=== PATIENT | male | born 1985 | race Caucasian/White ===

== ENCOUNTER 2020-04-24 03:54 | Emergency (ER) | payer MEDICARE, MEDICAID, SELFPAY ==
[2020-04-24 03:54] VITALS: BP 129/82; PULSE 72; RESP 16; TEMP 36.5; O2SAT 97; BMI 30.8
--- NOTE | 2020-04-24 04:03 | CT_ITS ---
STUDY: CT ABDOMEN AND PELVIS WITHOUT CONTRAST REASON FOR EXAM: Male, 35 years old. LT ABDOMEN PAIN SINCE 3AM RADIATION DOSAGE (If Supplied By Facility): CTDIvol = ( 14.37 ) mGy, DLP = ( 800.85 ) mGycm TECHNIQUE: Transaxial images were obtained from the dome of the diaphragm to the symphysis pubis without oral contrast, and without intravenous contrast. Sagittal and coronal images were reconstructed. Individualized dose optimization techniques were used for this CT. COMPARISON: None. FINDINGS: The visualized lung bases are unremarkable. The visualized portions of the heart are within normal limits. Normal liver. Normal gallbladder and extrahepatic biliary system. There is borderline splenomegaly. There is a small 12 mm splenule in the left splenic hilum. Normal pancreas. Normal bilateral adrenal glands. Normal right kidney. Normal left kidney. There is a small hiatal hernia. There mildly distended loops of small bowel. There is moderate stool in the colon. The appendix is visualized and appears normal. Normal abdominal aorta. Normal inferior vena cava. Normal retroperitoneum. Normal urinary bladder. Normal visualized prostate gland. There is a small umbilical hernia containing fat. There is a broad disc bulge L4-L5. There is mild disc space narrowing L5-S1 without significant neural foraminal narrowing or central stenosis. CT/Abdomen/Pelvis without Cont IMPRESSION: There are mildly distended loops of left upper quadrant small bowel. There is abundant stool in the colon from the cecum to the rectum. Could consider mild focal ileus, this is in a setting of constipation. No visualized appendicitis. No visualized renal ureteral bladder calculi. Borderline splenomegaly. Electronically Signed: Radha Torres MD at 4:37 EST Tel , Service support ,
--- NOTE | 2020-04-24 04:05 | ED.VIS.GEN ---
History of Present Illness Chief Complaint: Abd Pain Informant: Patient Onset: Today Current Severity: Mild Maximum Severity: Moderate Narrative: Patient presents with left-sided abdominal pain. He states he woke from sleep within the past hour with left-sided abdominal pain. He states initially he does not want to lay in a position to help ease the pain. He tried to go to the bathroom had a bowel movement that did not change his pain. He felt well when he went to sleep last night. He denies nausea or vomiting. He has not felt feverish. - Past Medical History (1) GERD (gastroesophageal reflux disease) Status: Chronic (2) Bipolar disorder Status: Chronic Past Medical History - Allergies and Home Meds Allergies/Adverse Reactions: Allergies No Known Allergies Allergy (Verified 04/24/20 03:56) Primary Care Physician: William Castillo MD [Primary Care Provider] - Prior records reviewed: Yes Surgical History: noncontributory Lives: Spouse/ Significant Other Smoking Status: Current every day smoker Review of Systems General: Denies: Chills, Fever Eyes: Denies: Visual changes - bilaterally ENT: Denies: Bilateral ear pain Cardiovascular: Denies: Chest pain Respiratory: Denies: Dyspnea, Cough Gastrointestinal: Reports: Abdominal pain. Denies: Vomiting, Diarrhea Genitourinary: Denies: Dysuria Musculoskeletal: Denies: Swelling, Extremity Pain Skin: Denies: Rash Neurological: Denies: Headache Hematologic: Denies: Easy bruising, Easy bleeding Allergy: Denies: Uticaria Physical Exam Vital Signs/Narrative: Vital Signs Temp Pulse Resp BP Pulse Ox 04/24/20 03:54 97.7 F L 72 16 129/82 H 97 Inital Vital Signs reviewed: Yes General: Well nourished, Well developed Head: Normocephalic ENT: Moist mucous membranes Neck: Supple Cardiovascular: Regular rate, Regular rhythm Respiratory: No distress, CTA bilaterally Abdomen: Soft, Nontender, Hypoactive bowel sounds Extremities: Nontender Skin: Normal color Neurological: Alert, Oriented x3 Psychological: Normal affect Diagnostic/Tx/Re-eval Impressions Abdomen/Pelvis CT 04/24/20 04:03 IMPRESSION: There are mildly distended loops of left upper quadrant small bowel. There is abundant stool in the colon from the cecum to the rectum. Could consider mild focal ileus, this is in a setting of constipation. No visualized appendicitis. No visualized renal ureteral bladder calculi. Borderline splenomegaly. Electronically Signed: Radha Torres MD at 4:37 EST Tel , Service support , 04/24/20 04:03 Abdomen/Pelvis without Cont [CT] Stat Laboratory Results 04/24/20 04/24/20 03:55 03:55 WBC 6.0 RBC 4.94 Hgb 15.0 Hct 42.4 MCV 85.8 MCH 30.4 MCHC 35.4 RDW Std Deviation 42.5 RDW Coeff of Gabriel 13.6 Plt Count 194 MPV 8.4 Immature Gran % (Auto) 0.300 Neut % (Auto) 43.0 L Lymph % (Auto) 44.9 H [place] % (Auto) 8.3 Eos % (Auto) 3.2 Baso % (Auto) 0.3 Absolute Neuts (auto) 2.6 Absolute Lymphs (auto) 2.70 Nucleated RBC % 0 Sodium 140 Potassium 3.3 L Chloride 107 Carbon Dioxide 27.0 Anion Gap 6 BUN 14 Creatinine 1.34 H Estim Creat Clear Calc 84.45 Est GFR (MDRD) Af Amer 78 Est GFR (MDRD) Non-Af 64 BUN/Creatinine Ratio 10.4 Glucose 104 Calcium 8.6 Total Bilirubin 0.60 Direct Bilirubin 0.11 AST 16 ALT 18 Alkaline Phosphatase 54 Total Protein 7.0 Albumin 3.9 Globulin 3.1 Lipase 105 - Medical Decision Making Patient was given Toradol and Zofran here. On repeat evaluation he is resting comfortably. Test results are discussed with him. It does appear that he has some distended loops of small bowel as well as constipation with stool throughout the colon. I did offer to write a prescription for MiraLAX but patient states he will does pick it up [id number]. He is reassured with these findings and was given return instructions. ED Disposition - Plan for ED Patient: Disposition: Home or Assisted Living Diagnosis: Abdominal pain, Constipation Instructions: ED Constipation (Adult) Referrals: William Castillo MD [Primary Care Provider] - As Needed Additional Instructions: As discussed, I recommend starting MiraLax to help treat your constipation. This can be picked up over the counter at local stores and pharmacies.
[2020-04-24 04:09] LABS: Absolute Neutrophil Count 2.6 X10^3/uL (2.0-7.7); Basophil# 0.02 X10^3/uL; Basophil% 0.3 % (0-1); Eosinophil# 0.19 X10^3/uL; Eosinophils% 3.2 % (0-5); Hematocrit 42.4 % (40-54); Lymphocyte % 44.9 % (19-41); Mean Corp Hgb Conc 35.4 g/dL (32-36); Mean Corpuscular Hgb 30.4 pg (27.0-32.0); Mean Corpuscular Volume 85.8 fL (80-94); Mean Platelet Vol. 8.4 fl (6.2-12.0); Monocyte% 8.3 % (0-10); NRBC Flagged by Analyzer 0 % (0-5); Neutrophil # 2.58 X10^3/uL (2.7-7.7); Platelet Count 194 K/mm3 (150-450); RBC Distribution Width CV 13.6 % (11.6-14.6); RBC Distribution Width SD 42.5 fl (35.1-43.9); Red Blood Count 4.94 M/mm3 (4.6-6.2)
[2020-04-24] MEDS: Ketorolac 30 MG/ML Syringe IV (04:09)
[2020-04-24] MEDS: Ondansetron 4 MG/2 ML Vial IV (04:09)
[2020-04-24 04:23] LABS: AST(SGOT) 16 U/L (15-37); Alanine Aminotransfer ALT/SGPT 18 U/L (16-61); Albumin, Serum 3.9 g/dL (3.2-5.0); Alkaline Phosphatase 54 U/L (45-117); Anion Gap 6 (5-15); BUN 14 mg/dL (7-18); BUN/Creat Ratio 10.4 RATIO (10-20); Bilirubin, Direct 0.11 mg/dL (0.00-0.30); Calcium,Total 8.6 mg/dL (8.5-10.1); Chloride 107 mmol/L (98-107); Creatinine, Serum 1.34 mg/dL (0.70-1.30); EST Glomerular Filtration Rate 64 mL/min (>60); Est Glom Filt Rate - Afr Amer 78 mL/min (>60); Estimated Creatinine Clearance 84.45 ml/min; Globulin 3.1 g/dL (2.2-4.2); Glucose 104 mg/dL (74-106); Lipase 105 U/L (73-393); Potassium 3.3 mmol/L (3.5-5.1); Sodium Level 140 mmol/L (136-145)
[2020-04-24 04:46] VITALS: RESP 15
== END 2020-04-24 04:46 | disposition home or self-care (01) ==
PROVIDERS: Emergency Provider Emergency Medicine; PCP Family Medicine
DX: K59.00 Constipation, unspecified (principal); K21.9 Gastro-esophageal reflux disease without esophagitis; F31.9 Bipolar disorder, unspecified; Z79.899 Other long term (current) drug therapy; F17.200 Nicotine dependence, unspecified, uncomplicated
CPT/HCPCS: 74176; 80048; 80076; 83690; 85025; 96374; 96375; 99283; A4216; J2405

== ENCOUNTER 2020-10-08 05:39 | Emergency (ER) | payer MEDICARE, MEDICAID, SELFPAY ==
[2020-10-08 05:39] VITALS: BP 126/68; PULSE 70; RESP 16; TEMP 35.9; O2SAT 95; BMI 29.2
--- NOTE | 2020-10-08 05:54 | ED.VIS.GI ---
HPI HPI - GI History of Present Illness Chief Complaint: Constipation Narrative Narrative: Patient presenting for evaluation secondary to constipation abdominal pain. Patient states that he has had a history of this in the past. Patient states over the course the last 2 days he has been having difficulty with passing stool. He states that he has been passing very small amounts of hard stool and has been having intermittent lower abdominal pain that is bilateral. He denies any nausea or vomiting. Denies any decreased flatus. Denies any fevers. He is never had any prior abdominal surgeries in the past. He states that he has had a history with constipation in the past, he required a enema, and is stating that he is presenting now hoping to prevent that. Review of systems otherwise negative. [facility] Medical History Anxiety Depression Home Medications prazosin [Minipress] 2 mg PO DAILY 07/23/15 [History Last Taken 03/06/16 20:00] lurasidone [Latuda] 80 mg PO DAILY 03/07/16 [History Last Taken 03/06/16 08:00] benztropine 2 mg PO BID 03/23/17 [History Last Taken Unknown] buspirone 30 mg PO BID 03/23/17 [History Last Taken Unknown] escitalopram oxalate 10 mg PO DAILY 03/23/17 [History Last Taken Unknown] lamotrigine 200 mg PO BID 04/24/20 [History Last Taken Unknown] omeprazole 20 mg PO DAILY 04/24/20 [History Last Taken Unknown] polyethylene glycol 3350 [Miralax] 17 g PO DAILY #119 g 10/08/20 [Rx Last Taken Unknown] Allergy/AdvReac Type Severity Reaction Status Date / Time No Known Allergies Allergy Verified 04/24/20 03:56 Social History Smoking Status: Current every day smoker tobacco type: cigarettes ROS ROS ED Constitutional Constitutional ED: Denies chills or fever(s) ENT ENT ED: Denies sore throat Cardiovascular Cardiovascular: Denies chest pain Respiratory/Chest Respiratory/Chest: Denies cough or dyspnea Gastrointestinal Gastrointestinal: Reports abdominal pain and constipation; Denies diarrhea or nausea Genitourinary Genitourinary ED: Denies dysuria, hematuria or urinary frequency Musculoskeletal Musculoskeletal: Denies myalgias Integumentary Denies rash Neurologic Neurologic: Denies paresthesias or weakness Psychiatric Psychiatric: Denies depression Endocrine Endocrinology: Denies polyuria Hematologic/Lymphatic Hematologic/Lymphatic: Denies easy bleeding or easy bruising Allergic/Immunologic Allergic/Immunologic ED: Denies urticaria EXAM Physical Exam Const Vital Signs: 10/08/20 05:39 Temperature 96.7 F L Temperature Source Temporal Pulse Rate 70 Respiratory Rate 16 Blood Pressure 126/68 H Blood Pressure Mean 87 Pulse Ox 95 Oxygen Delivery Method Room Air Positive well nourished and well developed General Appearance ED: well developed and NAD HEENT HEENT Narrative: No signs of dehydration normocephalic and atraumatic Eyes EOMs intact bilaterally General Eye ED: Negative for pale conjunctiva or scleral icterus Neck no lymphadenopathy and supple Resp normal respiratory effort and clear to auscultation bilaterally Cardio regular rate, regular rhythm, no murmurs and peripheral pulses 2+ throughout GI non-tender, non-distended and no masses GI Narrative: Patient complains that he gets bilateral lower abdominal pain but this is not reproducible on physical exam there are no palpable masses. No rebound or guarding noted. Palpation: soft; Negative for guarding, rigid or rebound tenderness present Back/Spine no CVA tenderness Extremity full ROM General Extremety ED: Negative for edema General Extremity: Negative for edema Neuro moves all extremities and no sensory deficits noted Sensorium / Orientation: alert, oriented to person, oriented to place and oriented to time Motor Exam: strength 5/5 throughout Psych mental status grossly normal Skin Rashes: no rashes MDM MDM MDM Narrative Medical decision making narrative: Patient presented secondary to abdominal pain and constipation. He has stable vital signs, appears well-hydrated, and does not have any reproducible tenderness to palpation. I do believe that he requires lab work or imaging. Patient has no prior history of abdominal surgeries I do think this presentation of a obstructive process. Patient will be treated with a course of MiraLAX first dose given in the emergency department. Patient was discharged in stable condition. Discharge Plan Triage Chief Complaint: Constipation ED Provider: Brian Green Dx/Rx/DC Orders Clinical Impression: Constipation Instructions: ED Constipation (Adult) Prescriptions: New polyethylene glycol 3350 [Miralax] 17 gram/dose powder 17 g PO DAILY Qty: 119 RF: 0 No Action prazosin [Minipress] 5 MG capsule 2 mg PO DAILY RF: 0 Latuda 40 MG tablet 80 mg PO DAILY RF: 0 buspirone 30 MG tablet 30 mg PO BID RF: 0 escitalopram oxalate 20 MG tablet 10 mg PO DAILY RF: 0 benztropine 2 MG tablet 2 mg PO BID RF: 0 lamotrigine 100 MG tablet 200 mg PO BID RF: 0 omeprazole 20 MG capsule,delayed release(DR/EC) 20 mg PO DAILY RF: 0 Primary Care Provider: William Castillo Referrals: William Castillo MD [Primary Care Provider] - 3-5 Days if not improving Disposition Disposition: Home, Self Care
[2020-10-08] MEDS: Polyethylene Glycol 3350 17 GM PACKET 34 GM PO (06:16)
== END 2020-10-08 06:16 | disposition home or self-care (01) ==
LOC: ED 06:07
PROVIDERS: Emergency Provider Emergency Medicine; PCP Family Medicine
DX: K59.00 Constipation, unspecified (principal); F41.9 Anxiety disorder, unspecified; F32.9 Major depressive disorder, single episode, unspecified; F17.210 Nicotine dependence, cigarettes, uncomplicated; Z79.899 Other long term (current) drug therapy
CPT/HCPCS: 99283

== ENCOUNTER 2020-10-15 14:39 | Emergency (ER) | payer MEDICARE, MEDICAID, SELFPAY ==
[2020-10-15 14:40] VITALS: BP 128/76; PULSE 94; RESP 16; TEMP 36.6; O2SAT 96; BMI 29.1
--- NOTE | 2020-10-15 15:07 | ED.RN ---
PT LWBS AT 1502
== END 2020-10-15 15:06 | disposition left against medical advice (07) ==
LOC: ED 15:09
PROVIDERS: PCP Family Medicine
DX: R35.0 Frequency of micturition (principal)

== ENCOUNTER 2021-04-05 12:48 | Emergency (ER) | payer MEDICARE, MEDICAID, SELFPAY ==
[2021-04-05 12:49] VITALS: BP 158/107; PULSE 103; RESP 20; TEMP 36.6; O2SAT 97; BMI 29.2
--- NOTE | 2021-04-05 13:12 | EX.ED.VIS.PS ---
HPI HPI - Psych History of Present Illness Chief Complaint: Anxiety Informant: patient Narrative Narrative: Patient complains of severe anxiety and panic attacks. He has had problems with anxiety and panic attacks for many years. He sees a psychiatrist, Arnav regularly. He is on multiple meds for this. He has been admitted but it has been years. He states he is not suicidal and not homicidal. He does not feel like he needs to be admitted but he wants some help. He got bad news about a girlfriend last night and it set him off with more panic and anxiety attacks. He is not thinking of hurting her. He states he just cannot calm down. It is causing him to get nausea and dry heaves. No chest pain. No fevers or chills. He states this is his typical anxiety but is just very bad. He is taking his meds. Nothing is really made it better but he really does not have any meds to take for breakthrough episode. Of note, I did do online prescribing report and he has no controlled substances at all prescribed in the last couple years. I truly think he is having bad panic/anxiety and is not just seeking benzodiazepines or controlled substances. [facility] Medical History Anxiety Depression Home Medications prazosin [Minipress] 2 mg PO DAILY 07/23/15 [History Last Taken 03/06/16 20:00] lurasidone [Latuda] 80 mg PO DAILY 03/07/16 [History Last Taken 03/06/16 08:00] benztropine 2 mg PO BID 03/23/17 [History Last Taken Unknown] buspirone 30 mg PO BID 03/23/17 [History Last Taken Unknown] escitalopram oxalate 10 mg PO DAILY 03/23/17 [History Last Taken Unknown] lamotrigine 200 mg PO BID 04/24/20 [History Last Taken Unknown] omeprazole 20 mg PO DAILY 04/24/20 [History Last Taken Unknown] polyethylene glycol 3350 [Miralax] 17 g PO DAILY #119 g 10/08/20 [Rx Last Taken Unknown] hydroxyzine pamoate 50 mg PO TID PRN #20 cap 04/05/21 [Rx Last Taken Unknown] Allergy/AdvReac Type Severity Reaction Status Date / Time No Known Allergies Allergy Verified 10/15/20 14:45 Social History Smoking Status: Current every day smoker tobacco type: cigarettes ROS ROS ED Constitutional Constitutional ED: Denies fever(s) Eyes Eyes: Denies blurry vision or change in vision ENT ENT ED: Denies rhinorrhea or sore throat Cardiovascular Cardiovascular: Reports palpitations; Denies chest pain Respiratory/Chest Respiratory/Chest: Denies cough or dyspnea Gastrointestinal Gastrointestinal: Denies abdominal pain, nausea or vomiting Genitourinary Genitourinary ED: Denies dysuria Musculoskeletal Musculoskeletal: Denies arthralgias or myalgias Integumentary Denies rash Neurologic Neurologic: Denies headache(s), paresthesias or weakness Psychiatric Psychiatric: Reports anxiety; Denies suicidal ideation or suicidal thoughts Hematologic/Lymphatic Hematologic/Lymphatic: Denies easy bleeding or easy bruising Allergic/Immunologic Allergic/Immunologic ED: Denies mouth swelling or urticaria EXAM Physical Exam Const Vital Signs: 04/05/21 12:49 Temperature 97.9 F Temperature Source Temporal Pulse Rate 103 H Respiratory Rate 20 H Blood Pressure 158/107 H Blood Pressure Mean 124 Pulse Ox 97 Positive well nourished and well developed General Appearance ED: well developed HEENT normocephalic and atraumatic Eyes General Eye ED: Negative for pale conjunctiva or scleral icterus Neck no JVD Resp normal respiratory effort and clear to auscultation bilaterally Auscultation: Negative for rales, rhonchi or wheezes Cardio no murmurs Rate: regular rate Rhythm: regular rhythm GI non-tender Palpation: soft Back/Spine no CVA tenderness Neuro oriented x3 Sensorium / Orientation: alert Psych denies hallucinations, denies homicidal ideation and denies suicidal ideation Psych Narrative: Patient is pacing when I walk in the room. He is able to sit down. However he is shaking his legs up and down and his hands shake back and forth on his knees. He looks genuinely very anxious. But he is alert he is oriented he is very cooperative. He makes eye contact. There is no flight of ideas. There is no indication of hallucinations. Skin Rashes: no rashes MDM MDM MDM Narrative Medical decision making narrative: I did treat him with a low injection of Ativan and hydroxyzine orally. He is much better now. His online prescription references totally free of any controlled substances. I will write for hydroxyzine. I have encouraged him to see his psychiatrist this week. If he develops any thoughts of hurting himself or others he should come back. Discharge Plan Triage Chief Complaint: Anxiety ED Provider: Andres Gonzalez Dx/Rx/DC Orders Clinical Impression: Panic attack, Anxiety disorder Instructions: Anxiety Disorders Tx Therapy, ED Panic Attack Prescriptions: New hydroxyzine pamoate 50 mg capsule 50 mg PO TID PRN (Reason: anxiety) Qty: 20 RF: 0 No Action prazosin [Minipress] 5 MG capsule 2 mg PO DAILY RF: 0 Latuda 40 MG tablet 80 mg PO DAILY RF: 0 buspirone 30 MG tablet 30 mg PO BID RF: 0 escitalopram oxalate 20 MG tablet 10 mg PO DAILY RF: 0 benztropine 2 MG tablet 2 mg PO BID RF: 0 lamotrigine 100 MG tablet 200 mg PO BID RF: 0 omeprazole 20 MG capsule,delayed release(DR/EC) 20 mg PO DAILY RF: 0 polyethylene glycol 3350 [Miralax] 17 gram/dose powder 17 g PO DAILY Qty: 119 RF: 0 Primary Care Provider: William Castillo Referrals: William Castillo MD [Primary Care Provider] - As Needed Activity Restrictions/Additional Instructions: Follow-up with your psychiatrist as soon as possible. Disposition Disposition: Home, Self Care
[2021-04-05] MEDS: hydrOXYzine PAM 25 MG Capsule 50 MG PO (13:23)
[2021-04-05] MEDS: LORazepam 2 MG/ML Syringe IV (13:29)
[2021-04-05 14:21] VITALS: BP 119/70
== END 2021-04-05 14:23 | disposition home or self-care (01) ==
PROVIDERS: Emergency Provider Emergency Medicine; PCP Family Medicine
DX: F41.0 Panic disorder [episodic paroxysmal anxiety] (principal); F17.210 Nicotine dependence, cigarettes, uncomplicated
CPT/HCPCS: 96374; 99284; A4216

== ENCOUNTER 2021-04-30 00:20 | Emergency (ER) | payer MEDICARE, MEDICAID, SELFPAY ==
[2021-04-30 00:21] VITALS: BP 112/74; PULSE 105; RESP 18; TEMP 36.3; O2SAT 95; BMI 29.0
--- NOTE | 2021-04-30 01:14 | EDS_ITS ---
HPI History of Present Illness Chief Complaint: Mental Health Narrative Narrative: Patient is a 36-year-old male with past medical history of bipolar disorder. He also reports a past history of substance abuse where he abuses cough syrup and cough suppressant pills. He states that he has been clean for multiple years but in the last 5 to 7 days is gone back to using the cough syrup and cough suppressant pills once again. He states that he has not used the cough medication for the past 24 to 36 hours and has been having increased anxiety and jitteriness and mood swings. He states that he is not homicidal or suicidal but he is worried that he messed himself up and that he does not want to go to group home. He has a counselor who has been talking to but he states that his normal medications are not helping and he felt that if he comes to the hospital he could have his brain checked as he has concern about permanent damage from his substance abuse [facility] Medical History Anxiety Depression Home Medications prazosin [Minipress] 2 mg PO DAILY 07/23/15 [History Last Taken 03/06/16 20:00] lurasidone [Latuda] 80 mg PO DAILY 03/07/16 [History Last Taken 03/06/16 08:00] benztropine 2 mg PO BID 03/23/17 [History Last Taken Unknown] buspirone 30 mg PO BID 03/23/17 [History Last Taken Unknown] escitalopram oxalate 10 mg PO DAILY 03/23/17 [History Last Taken Unknown] lamotrigine 200 mg PO BID 04/24/20 [History Last Taken Unknown] omeprazole 20 mg PO DAILY 04/24/20 [History Last Taken Unknown] polyethylene glycol 3350 [Miralax] 17 g PO DAILY #119 g 10/08/20 [Rx Last Taken Unknown] hydroxyzine pamoate 50 mg PO TID PRN #20 cap 04/05/21 [Rx Last Taken Unknown] fluvoxamine 100 mg PO DAILY 04/30/21 [History Last Taken Unknown] Allergy/AdvReac Type Severity Reaction Status Date / Time No Known Allergies Allergy Verified 04/30/21 00:26 Social History Smoking Status: Current every day smoker tobacco type: cigarettes ROS ROS ED Constitutional Constitutional ED: Denies chills or fever(s) Eyes Eyes: Denies change in vision ENT ENT ED: Denies sore throat Cardiovascular Cardiovascular: Reports palpitations and racing heartbeat; Denies chest pain Respiratory/Chest Respiratory/Chest: Reports cough; Denies dyspnea Gastrointestinal Gastrointestinal: Reports diarrhea and nausea; Denies abdominal pain or vomiting Genitourinary Genitourinary ED: Denies dysuria Musculoskeletal Musculoskeletal: Reports myalgias Integumentary Denies rash Neurologic Neurologic: Denies headache(s) Psychiatric Psychiatric: Reports anxiety; Denies suicidal ideation or suicidal thoughts Hematologic/Lymphatic Hematologic/Lymphatic: Denies easy bleeding or easy bruising EXAM Physical Exam Const Vital Signs: 04/30/21 00:21 04/30/21 02:00 Temperature 97.4 F L Temperature Source Oral Pulse Rate 105 H Respiratory Rate 18 16 Blood Pressure 112/74 Blood Pressure Mean 86 Pulse Ox 95 Oxygen Delivery Method Room Air Positive well nourished and well developed General Appearance ED: well developed HEENT Reports moist mucous membranes Eyes PERRL and EOMs intact bilaterally Neck supple Resp normal respiratory effort and clear to auscultation bilaterally Cardio regular rate and regular rhythm GI non-tender and non-distended GI Narrative: Bowel sounds are hyperactive Palpation: soft Extremity normal to inspection Neuro oriented x3 and CN's II-XII intact bilaterally Sensorium / Orientation: alert Motor Exam: strength 5/5 throughout Psych Psych Narrative: Patient has a agitated/anxious affect but no homicidal or suicidal ideation Skin no rashes or lesions noted MDM MDM MDM Narrative Medical decision making narrative: Patient presented to the ER afebrile and he reported no homicidal or suicidal ideations. He states he has been having increased anxiety along with mood swings and states his been 24 to 36 hours since his last use of the cough suppressant supplement. His history and exam is consistent with a withdrawal syndrome. We discussed that I could perform a head CT today based on his concern as well as basic blood work to ensure he did not have any type of electrolyte derangement as a cause of his symptoms. I I also informed the patient that we could perform a psychiatric work-up if he was looking for possible placement for his anxiety or substance abuse. Patient states that he does not want to go to a mental hospital as he is seeing a counselor on an outpatient basis. He also states that he is just looking for symptom control at this time and does not feel he needs laboratory imaging studies. Therefore he was medicated with Ativan and Benadryl by IM route and will be discharged and advised to follow-up with his counselor to discuss further treatment strategies. Discharge Plan Triage Chief Complaint: Mental Health ED Provider: Sonny Harry Dx/Rx/DC Orders Clinical Impression: Substance abuse, Withdrawal syndrome Instructions: Recovering from Addiction, Addiction Recovery Counseling Prescriptions: No Action prazosin [Minipress] 5 MG capsule 2 mg PO DAILY RF: 0 Latuda 40 MG tablet 80 mg PO DAILY RF: 0 buspirone 30 MG tablet 30 mg PO BID RF: 0 escitalopram oxalate 20 MG tablet 10 mg PO DAILY RF: 0 benztropine 2 MG tablet 2 mg PO BID RF: 0 lamotrigine 100 MG tablet 200 mg PO BID RF: 0 omeprazole 20 MG capsule,delayed release(DR/EC) 20 mg PO DAILY RF: 0 polyethylene glycol 3350 [Miralax] 17 gram/dose powder 17 g PO DAILY Qty: 119 RF: 0 hydroxyzine pamoate 50 mg capsule 50 mg PO TID PRN (Reason: anxiety) Qty: 20 RF: 0 fluvoxamine 100 mg tablet 100 mg PO DAILY RF: 0 Primary Care Provider: William Castillo Referrals: William Castillo MD [Primary Care Provider] - Disposition Disposition: Home, Self Care Discharge Date/Time: 04/30/21 02:02
[2021-04-30] MEDS: DiphenhydrAMINE 50 MG/ML Syringe IM (01:39)
[2021-04-30] MEDS: LORazepam 2 MG/ML Syringe IM (01:39)
[2021-04-30 02:00] VITALS: RESP 16
== END 2021-04-30 02:02 | disposition home or self-care (01) ==
LOC: ED 01:23
PROVIDERS: Emergency Provider Emergency Medicine; PCP Family Medicine; Visit Provider Emergency Medicine
DX: F55.8 Abuse of other non-psychoactive substances (principal); F31.9 Bipolar disorder, unspecified; F41.9 Anxiety disorder, unspecified; F17.210 Nicotine dependence, cigarettes, uncomplicated; Z79.899 Other long term (current) drug therapy
CPT/HCPCS: 96372; 99282

== ENCOUNTER 2021-05-14 07:56 | Emergency (ER) | payer MEDICARE, MEDICAID, SELFPAY ==
[2021-05-14 07:57] VITALS: BP 141/99; PULSE 144; RESP 24; TEMP 36.6; O2SAT 99; BMI 28.8
--- NOTE | 2021-05-14 08:21 | EX.ED.DYSGE1 ---
HPI History of Present Illness Chief Complaint: Anxiety Informant: patient and parent Narrative Narrative: Patient presents with the panic anxiety attack. He has a long history of these. He is on multiple meds. He just added fluvoxamine a week or so ago. It sounds like he just started Seroquel yesterday. It helped in the morning. He took it this morning but is not helped yet. He is not suicidal or homicidal. He states he does not want to go to a mental hospital. He states that has not helped him in the past. He has been admitted 18 or 19 times. However, the last time was back about 2016. He has a history of bipolar. He sees a counselor regularly. He sees a psychiatrist, Arnav Farias who prescribes the medicine and has an appointment later this month. He has a counseling appointment later this evening. He can think specifically what is kicked off his panic or anxiety attack but he states that is normal. Its been worse for the last 4 days off and on but this morning is the worst of it. Nothing traditionally makes it better or worse acutely. [facility] Medical History Anxiety Depression Home Medications prazosin [Minipress] 2 mg PO DAILY 07/23/15 [History Last Taken 03/06/16 20:00] lurasidone [Latuda] 80 mg PO DAILY 03/07/16 [History Last Taken 03/06/16 08:00] benztropine 2 mg PO BID 03/23/17 [History Last Taken Unknown] buspirone 30 mg PO BID 03/23/17 [History Last Taken Unknown] escitalopram oxalate 10 mg PO DAILY 03/23/17 [History Last Taken Unknown] lamotrigine 200 mg PO BID 04/24/20 [History Last Taken Unknown] omeprazole 20 mg PO DAILY 04/24/20 [History Last Taken Unknown] polyethylene glycol 3350 [Miralax] 17 g PO DAILY #119 g 10/08/20 [Rx Last Taken Unknown] hydroxyzine pamoate 50 mg PO TID PRN #20 cap 04/05/21 [Rx Last Taken Unknown] fluvoxamine 100 mg PO DAILY 04/30/21 [History Last Taken Unknown] quetiapine 25 mg PO DAILY 05/14/21 [History Last Taken Unknown] Allergy/AdvReac Type Severity Reaction Status Date / Time No Known Allergies Allergy Verified 05/14/21 08:00 Social History Smoking Status: Current every day smoker tobacco type: cigarettes ROS ROS ED Constitutional Constitutional ED: Denies fever(s) Eyes Eyes: Denies blurry vision ENT ENT ED: Denies rhinorrhea Cardiovascular Cardiovascular: Reports palpitations and racing heartbeat Respiratory/Chest Respiratory/Chest: Denies dyspnea Gastrointestinal Gastrointestinal: Denies nausea or vomiting Integumentary Denies rash Neurologic Neurologic: Denies headache(s) or weakness Psychiatric Psychiatric: Reports anxiety; Denies depression, suicidal ideation or suicidal thoughts Endocrine Endocrinology: Denies polyuria Allergic/Immunologic Allergic/Immunologic ED: Denies mouth swelling or urticaria EXAM Physical Exam Const Vital Signs: 05/14/21 07:57 Temperature 97.9 F Temperature Source Temporal Pulse Rate 144 H Respiratory Rate 24 H Blood Pressure 141/99 H Blood Pressure Mean 113 Pulse Ox 99 Oxygen Delivery Method Room Air Positive well nourished and well developed Constitutional Narrative: Patient is pacing around the room. He is speaking somewhat loudly. He is able to be calm enough to sit down and talk. However, he is shaking his legs up and down and cannot stop moving. General Appearance ED: well developed; Negative for cyanotic or diaphoretic HEENT Reports moist mucous membranes Eyes General Eye ED: Negative for pale conjunctiva or scleral icterus Neck no JVD Chest Wall inspection of chest normal Resp normal respiratory effort and clear to auscultation bilaterally Effort and Inspection: Negative for pain with movement Auscultation: Negative for rales, rhonchi or wheezes Cardio regular rhythm; Negative for regular rate Rate: tachycardic GI normal to inspection, nondistended, normoactive bowel sounds and non-tender Palpation: soft Back/Spine no CVA tenderness Extremity normal to inspection Neuro oriented x3 Sensorium / Orientation: alert; Negative for orientation impaired, lethargic or stuporous Motor Exam: strength 5/5 throughout Psych Attitude: agitated Mood & Affect: anxious Skin no rashes or lesions noted MDM MDM MDM Narrative Medical decision making narrative: Patient does not want to be admitted. He really does not want evaluation. He would like something to calm him down. I explained that I can get him medicine here to calm him down. I am not going to prescribe further medications to go as this is really up to his counselor himself and his psychiatrist. He has just started 2 medicines in the last 2 weeks and I really do not want to alter that. I did bring up the option of considering admission to a psychiatric hospital. This is his third visit in about a month and a half for this. I explained that were happy to help but regular visits for breakthrough treatment may not be the best for him. If he needs regular visits it might be smart at some point to get him in the hospital to see if they can regulate him better. He would not like to do that at this point. We will see if we can get him calm down and doing better now. Patient got much better with meds. We will get him home for follow-up at this time. Discharge Plan Triage Chief Complaint: Anxiety ED Provider: Andres Gonzalez Dx/Rx/DC Orders Clinical Impression: Panic attack, Bipolar disorder Instructions: ED Panic Attack Prescriptions: No Action prazosin [Minipress] 5 MG capsule 2 mg PO DAILY RF: 0 Latuda 40 MG tablet 80 mg PO DAILY RF: 0 buspirone 30 MG tablet 30 mg PO BID RF: 0 escitalopram oxalate 20 MG tablet 10 mg PO DAILY RF: 0 benztropine 2 MG tablet 2 mg PO BID RF: 0 lamotrigine 100 MG tablet 200 mg PO BID RF: 0 omeprazole 20 MG capsule,delayed release(DR/EC) 20 mg PO DAILY RF: 0 polyethylene glycol 3350 [Miralax] 17 gram/dose powder 17 g PO DAILY Qty: 119 RF: 0 hydroxyzine pamoate 50 mg capsule 50 mg PO TID PRN (Reason: anxiety) Qty: 20 RF: 0 fluvoxamine 100 mg tablet 100 mg PO DAILY RF: 0 quetiapine 25 mg tablet 25 mg PO DAILY RF: 0 Primary Care Provider: William Castillo Referrals: William Castillo MD [Primary Care Provider] - As Needed Activity Restrictions/Additional Instructions: Follow-up with your counseling appointment later today and your psychiatrist visit later this month. Disposition Disposition: Home, Self Care Discharge Date/Time: 05/14/21 09:25
[2021-05-14] MEDS: LORazepam 2 MG/ML Syringe IM (08:26)
[2021-05-14] MEDS: hydrOXYzine PAM 25 MG Capsule 50 MG PO (08:26)
== END 2021-05-14 09:25 | disposition home or self-care (01) ==
PROVIDERS: Emergency Provider Emergency Medicine; PCP Family Medicine; Visit Provider Emergency Medicine
DX: F41.0 Panic disorder [episodic paroxysmal anxiety] (principal); F31.9 Bipolar disorder, unspecified; F17.210 Nicotine dependence, cigarettes, uncomplicated; F32.A Depression, unspecified; Z79.899 Other long term (current) drug therapy
CPT/HCPCS: 96372; 99283

== ENCOUNTER 2021-05-18 23:14 | Emergency (ER) | payer MEDICARE, MEDICAID, SELFPAY ==
[2021-05-18 23:15] VITALS: BP 160/86; PULSE 120; RESP 19; TEMP 37.2; O2SAT 96; BMI 29.5
--- NOTE | 2021-05-18 23:23 | EDS_ITS ---
HPI History of Present Illness Chief Complaint: Substance Abuse Informant: patient Narrative Narrative: This is a patient known to me. He has a history of significant anxiety and panic attacks. He states he started using dextromethorphan again earlier today. He did a couple boxes. He denies Tylenol. He states this caused a panic attack. EMS was called. He was evaluated. But he then had taken his medicines for anxiety and his panic attack is already getting better. Somebody recommended he may be get evaluated for the panic attack and possible detox. But he states he is now knows that they do not do inpatient detox for dextromethorphan. He does have a outpatient detox program set up for Wednesday which is about a day today and a half away. He states his anxiety is coming down now. He is not having chest pain or dyspnea. He is not suicidal or h omicidal. He has been admitted for drug use in the past but it has been many years. He will his last admission for psychiatric reasons was about 2014. He again feels as though he does not need to be admitted. This patient is much Colmer than I saw him last time. He seems a bit anxious but still much more relaxed than is his normal. He also admits he is doing better. He feels that there is really nothing special that he needs at this point. When he came here to be seen he was still very anxious but he states his medicines now kicked in. [facility] Medical History Anxiety Depression Home Medications prazosin [Minipress] 2 mg PO DAILY 07/23/15 [History Last Taken 03/06/16 20:00] lurasidone [Latuda] 80 mg PO DAILY 03/07/16 [History Last Taken 03/06/16 08:00] benztropine 2 mg PO BID 03/23/17 [History Last Taken Unknown] buspirone 30 mg PO BID 03/23/17 [History Last Taken Unknown] escitalopram oxalate 10 mg PO DAILY 03/23/17 [History Last Taken Unknown] lamotrigine 200 mg PO BID 04/24/20 [History Last Taken Unknown] omeprazole 20 mg PO DAILY 04/24/20 [History Last Taken Unknown] polyethylene glycol 3350 [Miralax] 17 g PO DAILY #119 g 10/08/20 [Rx Last Taken Unknown] hydroxyzine pamoate 50 mg PO TID PRN #20 cap 04/05/21 [Rx Last Taken Unknown] fluvoxamine 100 mg PO DAILY 04/30/21 [History Last Taken Unknown] quetiapine 25 mg PO DAILY 05/14/21 [History Last Taken Unknown] Allergy/AdvReac Type Severity Reaction Status Date / Time No Known Allergies Allergy Verified 05/14/21 08:00 Social History Smoking Status: Current every day smoker tobacco type: cigarettes ROS ROS ED Constitutional Constitutional ED: Denies fever(s) Eyes Eyes: Denies blurry vision ENT ENT ED: Denies rhinorrhea Cardiovascular Cardiovascular: Denies chest pain or palpitations Respiratory/Chest Respiratory/Chest: Denies dyspnea Gastrointestinal Gastrointestinal: Denies nausea or vomiting Musculoskeletal Musculoskeletal: Denies myalgias Integumentary Denies rash Neurologic Neurologic: Denies headache(s), paresthesias or weakness Psychiatric Psychiatric: Reports anxiety; Denies depression, suicidal ideation or suicidal thoughts Allergic/Immunologic Allergic/Immunologic ED: Denies mouth swelling or urticaria EXAM Physical Exam Const Vital Signs: 05/18/21 23:15 Temperature 98.9 F Temperature Source Temporal Pulse Rate 120 H Respiratory Rate 19 H Blood Pressure 160/86 H Blood Pressure Mean 110 Pulse Ox 96 Oxygen Delivery Method Room Air Positive well nourished and well developed General Appearance ED: well developed and NAD; Negative for cyanotic or diaphoretic HEENT Reports moist mucous membranes Eyes General Eye ED: Negative for pale conjunctiva or scleral icterus Neck no JVD Chest Wall inspection of chest normal Resp normal respiratory effort and clear to auscultation bilaterally Cardio regular rhythm Rate: tachycardic and other Other Details: Heart rate is about 100-110 at this time. He commonly runs increased heart rate when he is anxious. GI normal to inspection, nondistended, normoactive bowel sounds and non-tender Palpation: soft Back/Spine no CVA tenderness Extremity General Extremety ED: Negative for tenderness Neuro oriented x3 Sensorium / Orientation: alert; Negative for lethargic or stuporous Motor Exam: Negative for general weakness Psych Psych Narrative: Mildly anxious. Normally when I see him he is pacing around the room and speaking very loudly. He is now sitting in bed. He is shaking his foot but other than that he is sitting much quieter than normal. Mood & Affect: anxious Skin no rashes or lesions noted MDM MDM MDM Narrative Medical decision making narrative: Patient is not sleepy or lethargic. His temperature is normal. His heart rate is a bit up. He took dextromethorphan many many hours ago much earlier in the day. It is over 6 hours now. He is feeling better. Plan will be to get him home and he can follow-up with his psychiatrist, counselor and now his outpatient drug abuse counseling appointment starting Wednesday which is only about a day today and a half away. Discharge Plan Triage Chief Complaint: Substance Abuse ED Provider: Andres Gonzalez Dx/Rx/DC Orders Clinical Impression: Panic attack, Severe dextromethorphan use disorder Instructions: ED Anxiety Reaction, ED Drug Abuse Prescriptions: No Action prazosin [Minipress] 5 MG capsule 2 mg PO DAILY RF: 0 Latuda 40 MG tablet 80 mg PO DAILY RF: 0 buspirone 30 MG tablet 30 mg PO BID RF: 0 escitalopram oxalate 20 MG tablet 10 mg PO DAILY RF: 0 benztropine 2 MG tablet 2 mg PO BID RF: 0 lamotrigine 100 MG tablet 200 mg PO BID RF: 0 omeprazole 20 MG capsule,delayed release(DR/EC) 20 mg PO DAILY RF: 0 polyethylene glycol 3350 [Miralax] 17 gram/dose powder 17 g PO DAILY Qty: 119 RF: 0 hydroxyzine pamoate 50 mg capsule 50 mg PO TID PRN (Reason: anxiety) Qty: 20 RF: 0 fluvoxamine 100 mg tablet 100 mg PO DAILY RF: 0 quetiapine 25 mg tablet 25 mg PO DAILY RF: 0 Primary Care Provider: William Castillo Referrals: William Castillo MD [Primary Care Provider] - As Needed Activity Restrictions/Additional Instructions: Keep your scheduled appointment with counseling for dextromethorphan abuse on Wednesday. Also keep your appointments with your psychiatrist in the outpatient psychiatric counseling. Disposition Disposition: Home, Self Care
== END 2021-05-18 23:39 | disposition home or self-care (01) ==
LOC: ED 23:38
PROVIDERS: Emergency Provider Emergency Medicine; PCP Family Medicine; Visit Provider Emergency Medicine
DX: F41.0 Panic disorder [episodic paroxysmal anxiety] (principal); F19.20 Other psychoactive substance dependence, uncomplicated; F32.A Depression, unspecified; F17.210 Nicotine dependence, cigarettes, uncomplicated; Z79.899 Other long term (current) drug therapy
CPT/HCPCS: 99283

== ENCOUNTER 2021-05-20 04:55 | Emergency (ER) | payer MEDICARE, MEDICAID, SELFPAY ==
[2021-05-20 04:56] VITALS: BP 172/110; PULSE 154; RESP 19; TEMP 36.2; O2SAT 97; BMI 29.2
--- NOTE | 2021-05-20 05:14 | EDS_ITS ---
HPI History of Present Illness Chief Complaint: Anxiety Informant: patient Narrative Narrative: Patient states he woke up this morning a couple different times having a panic attack with racing/intrusive thoughts, and he cannot calm down. He presents at about 5 AM. He states he is slated for intake for intensive outpatient program detox for his addiction to dextromethorphan-containing [id number] cold medications. He has had this addiction for over 20 years. He was seen here within the last week several times for similar issues. He states yesterday, before work around 10 or 11 AM he took an entire box of cold medication that contain dextromethorphan and an antihistamine. When he got home from work around 8 PM, he took another box. He took his usual prescriptions as they were prescribed, and no other pills or substances except for some marijuana that he smoked. He states in the past 10 or 20 years, he has taken 2 or 3 boxes of similar combination pills countless times, he has had this occur sometimes and he has had nothing occur other times. He states he feels very jittery, he woke up sweating a couple times, and he can feel his heart racing although that is not the most prominent symptom here. He feels very anxious and the racing thoughts are the most prominent symptoms. He called someone about the program he is supposed to go into today, and he states they told me to go to the ER because I was unable to calm down. He denies any suicidal thoughts or ideation. [facility] Medical History (Updated 05/20/21 @ 05:[address] Fito Nunn MD) Anxiety Bipolar disorder Depression GERD (gastroesophageal reflux disease) Panic attack Severe dextromethorphan use disorder Home Medications prazosin [Minipress] 2 mg PO DAILY 07/23/15 [History Last Taken 03/06/16 20:00] lurasidone [Latuda] 80 mg PO DAILY 03/07/16 [History Last Taken 03/06/16 08:00] benztropine 2 mg PO BID 03/23/17 [History Last Taken Unknown] buspirone 30 mg PO BID 03/23/17 [History Last Taken Unknown] escitalopram oxalate 10 mg PO DAILY 03/23/17 [History Last Taken Unknown] lamotrigine 200 mg PO BID 04/24/20 [History Last Taken Unknown] omeprazole 20 mg PO DAILY 04/24/20 [History Last Taken Unknown] hydroxyzine pamoate 50 mg PO TID PRN #20 cap 04/05/21 [Rx Last Taken Unknown] fluvoxamine 100 mg PO DAILY 04/30/21 [History Last Taken Unknown] quetiapine 25 mg PO DAILY 05/14/21 [History Last Taken Unknown] Allergy/AdvReac Type Severity Reaction Status Date / Time No Known Allergies Allergy Verified 05/14/21 08:00 Social History Smoking Status: Current every day smoker tobacco type: cigarettes ROS ROS ED Constitutional Constitutional ED: Reports sweats; Denies chills or fever(s) Eyes Eyes: Denies change in vision or diplopia ENT ENT ED: Denies rhinorrhea or sore throat Cardiovascular Cardiovascular: Denies chest pain or palpitations Respiratory/Chest Respiratory/Chest: Denies cough or dyspnea Gastrointestinal Gastrointestinal: Denies abdominal pain, diarrhea, nausea or vomiting Genitourinary Genitourinary ED: Denies dysuria or hematuria Musculoskeletal Musculoskeletal: Denies back pain or neck pain Integumentary Denies abscess or rash Neurologic Neurologic: Denies headache(s), paresthesias or weakness Psychiatric Psychiatric: Reports as per HPI, anxiety and panic attacks; Denies paranoia, suicidal ideation or suicidal thoughts EXAM Physical Exam Const Vital Signs: 05/20/21 04:56 05/20/21 05:41 Temperature 97.2 F L Temperature Source Temporal Pulse Rate 154 H 116 H Respiratory Rate 19 H Blood Pressure 172/110 H Blood Pressure Mean 130 Pulse Ox 97 Oxygen Delivery Method Room Air Positive well nourished and well developed General Appearance ED: well developed and NAD HEENT Reports moist mucous membranes normocephalic and atraumatic Eyes PERRL and EOMs intact bilaterally Neck full ROM and supple Resp normal respiratory effort and clear to auscultation bilaterally Cardio regular rate, regular rhythm and no murmurs Rate: tachycardic GI non-tender and non-distended Auscultation: normoactive bowel sounds Palpation: soft Back/Spine no CVA tenderness General Back: other FROM Extremity normal to inspection General Extremety ED: Negative for edema, pulses abnormal or tenderness General Extremity: Negative for edema or pulses abnormal Neuro oriented x3, CN's II-XII intact bilaterally, no focal motor deficits, no sensory deficits noted and gait normal Neuro Narrative: Very tremulous throughout both lower extremities, which he can immediately suppress upon following simple directions like sitting up for lung exam. Upon lying down or relaxing, he continues to have the tremors. Sensorium / Orientation: awake and alert Motor Exam: strength 5/5 throughout Psych thought process normal and cooperative Psych Narrative: Very anxious. Pressured speech, and fairly loud. Patient states he is not trying to be mean, after nurses accused him of being so, mostly because of his loud voice and pressured speech. Skin no rashes or lesions noted and no wounds MDM MDM MDM Narrative Medical decision making narrative: Patient was given Ativan 2 mg IM. After half an hour he is feeling much better. His blood pressure still high but it is lower than it was, and his heart rate has come down to 115-125 range. On the monitor he is clearly sinus tachycardia, it was difficult to tell when his rate was 160, but now that he is slowed down he clearly is not having any type of dysrhythmia. He feels good enough to go home and I am comfortable allowing him so that he can make his intake. Rhythm Strip Rhythm Strip: Sinus Tach Rate: 160 Ectopy: None Discharge Plan Triage Chief Complaint: Anxiety ED Provider: Fito Nunn Dx/Rx/DC Orders Clinical Impression: Panic attack, Substance abuse Instructions: ED Panic Attack Prescriptions: No Action prazosin [Minipress] 5 MG capsule 2 mg PO DAILY RF: 0 Latuda 40 MG tablet 80 mg PO DAILY RF: 0 buspirone 30 MG tablet 30 mg PO BID RF: 0 escitalopram oxalate 20 MG tablet 10 mg PO DAILY RF: 0 benztropine 2 MG tablet 2 mg PO BID RF: 0 lamotrigine 100 MG tablet 200 mg PO BID RF: 0 omeprazole 20 MG capsule,delayed release(DR/EC) 20 mg PO DAILY RF: 0 hydroxyzine pamoate 50 mg capsule 50 mg PO TID PRN (Reason: anxiety) Qty: 20 RF: 0 fluvoxamine 100 mg tablet 100 mg PO DAILY RF: 0 quetiapine 25 mg tablet 25 mg PO DAILY RF: 0 Primary Care Provider: William Castillo Referrals: William Castillo MD [Primary Care Provider] - [employer] [STAFF PHYSICIAN] - As Needed (IOP intake as scheduled today) Disposition Disposition: Home, Self Care
[2021-05-20] MEDS: LORazepam 2 MG/ML Syringe IM (05:24)
[2021-05-20 05:41] VITALS: PULSE 116
[2021-05-20 05:53] VITALS: BP 158/119; PULSE 129; RESP 23
== END 2021-05-20 05:54 | disposition home or self-care (01) ==
PROVIDERS: Emergency Provider Emergency Medicine; PCP Family Medicine; Visit Provider Emergency Medicine
DX: F41.0 Panic disorder [episodic paroxysmal anxiety] (principal); F31.9 Bipolar disorder, unspecified; F17.210 Nicotine dependence, cigarettes, uncomplicated; K21.9 Gastro-esophageal reflux disease without esophagitis; Z79.899 Other long term (current) drug therapy; F55.8 Abuse of other non-psychoactive substances
CPT/HCPCS: 96372; 99282

== ENCOUNTER 2021-07-26 00:48 | Emergency (ER) | payer MEDICARE, MEDICAID, SELFPAY ==
[2021-07-26 00:49] VITALS: BP 134/97; PULSE 89; RESP 15; TEMP 37.1; O2SAT 98; BMI 27.1
--- NOTE | 2021-07-26 01:11 | EX.ED.DYSGE1 ---
HPI History of Present Illness Chief Complaint: Anxiety Narrative Narrative: Patient is a 36-year-old male with past medical history of of anxiety. He also has past medical history of illicit drug use and was recently admitted to a facility secondary to his symptoms. He reports he stayed there for 9 days had his medication adjusted and was discharged. He states after getting out he relapsed and he smoked and snorted methamphetamines on Wednesday. He states since that time he has been using just his normal medication and denies any further illicit drug use but states his anxiety has been elevated and he has been unable to sleep and therefore comes in for evaluation. Patient denies any homicidal or suicidal ideation. [facility] Medical History (Updated 07/26/21 @ 01:[address] Sonny Harry DO) Anxiety Bipolar disorder Depression GERD (gastroesophageal reflux disease) Panic attack Severe dextromethorphan use disorder Home Medications prazosin [Minipress] 2 mg PO DAILY 07/23/15 [History Last Taken 03/06/16 20:00] lurasidone [Latuda] 80 mg PO DAILY 03/07/16 [History Last Taken 03/06/16 08:00] benztropine 2 mg PO BID 03/23/17 [History Last Taken Unknown] buspirone 30 mg PO BID 03/23/17 [History Last Taken Unknown] escitalopram oxalate 10 mg PO DAILY 03/23/17 [History Last Taken Unknown] lamotrigine 200 mg PO BID 04/24/20 [History Last Taken Unknown] omeprazole 20 mg PO DAILY 04/24/20 [History Last Taken Unknown] hydroxyzine pamoate 50 mg PO TID PRN #20 cap 04/05/21 [Rx Last Taken Unknown] fluvoxamine 100 mg PO DAILY 04/30/21 [History Last Taken Unknown] quetiapine 25 mg PO DAILY 05/14/21 [History Last Taken Unknown] Allergy/AdvReac Type Severity Reaction Status Date / Time No Known Allergies Allergy Verified 07/26/21 00:54 Social History Smoking Status: Current every day smoker tobacco type: cigarettes ROS ROS ED Constitutional Constitutional ED: Denies chills or fever(s) ENT ENT ED: Denies sore throat Cardiovascular Cardiovascular: Denies chest pain Respiratory/Chest Respiratory/Chest: Denies cough or dyspnea Gastrointestinal Gastrointestinal: Denies abdominal pain, diarrhea, nausea or vomiting Genitourinary Genitourinary ED: Denies dysuria Musculoskeletal Musculoskeletal: Denies myalgias Integumentary Denies rash Neurologic Neurologic: Denies headache(s) Psychiatric Psychiatric: Reports anxiety; Denies suicidal ideation or suicidal thoughts Hematologic/Lymphatic Hematologic/Lymphatic: Denies easy bleeding or easy bruising EXAM Physical Exam Const Vital Signs: 07/26/21 00:49 07/26/21 01:18 Temperature 98.8 F Temperature Source Temporal Pulse Rate 89 87 Respiratory Rate 15 17 Blood Pressure 134/97 H Blood Pressure Mean 109 Pulse Ox 98 Oxygen Delivery Method Room Air Positive well nourished and well developed General Appearance ED: well developed Eyes PERRL and EOMs intact bilaterally Neck supple Resp normal respiratory effort and clear to auscultation bilaterally Cardio regular rate and regular rhythm Extremity normal to inspection Neuro oriented x3 and CN's II-XII intact bilaterally Sensorium / Orientation: alert Motor Exam: strength 5/5 throughout Psych Psych Narrative: No homicidal or suicidal ideation Mood & Affect: anxious Skin no rashes or lesions noted MDM MDM MDM Narrative Medical decision making narrative: Patient presented to the ER mildly hypertensive but otherwise with stable vitals. He denies any homicidal or suicidal ideation and therefore do not feel there is need for psychiatric work-up. Patient reports a longstanding history of anxiety which was worsened by his recent meth use. However has not done that for the past 2 days and as he is not tachycardic do not feel there is need for EKG or cardiac work-up at this time. Patient will be given IM Ativan and Benadryl to help reduce anxiety and is otherwise safe for discharge as he denies any homicidal or suicidal ideation. Discharge Plan Triage Chief Complaint: Anxiety ED Provider: Sonny Harry Dx/Rx/DC Orders Clinical Impression: Anxiety reaction Instructions: ED Anxiety Reaction Prescriptions: No Action prazosin [Minipress] 5 MG capsule 2 mg PO DAILY RF: 0 Latuda 40 MG tablet 80 mg PO DAILY RF: 0 buspirone 30 MG tablet 30 mg PO BID RF: 0 escitalopram oxalate 20 MG tablet 10 mg PO DAILY RF: 0 benztropine 2 MG tablet 2 mg PO BID RF: 0 lamotrigine 100 MG tablet 200 mg PO BID RF: 0 omeprazole 20 MG capsule,delayed release(DR/EC) 20 mg PO DAILY RF: 0 hydroxyzine pamoate 50 mg capsule 50 mg PO TID PRN (Reason: anxiety) Qty: 20 RF: 0 fluvoxamine 100 mg tablet 100 mg PO DAILY RF: 0 quetiapine 25 mg tablet 25 mg PO DAILY RF: 0 Primary Care Provider: William Castillo Referrals: William Castillo MD [Primary Care Provider] - Disposition Disposition: Home, Self Care
[2021-07-26 01:18] VITALS: PULSE 87; RESP 17
[2021-07-26] MEDS: DiphenhydrAMINE 50 MG/ML Syringe IM (01:26)
[2021-07-26] MEDS: LORazepam 2 MG/ML Syringe IM (01:26)
== END 2021-07-26 01:28 | disposition home or self-care (01) ==
LOC: ED 01:20
PROVIDERS: Emergency Provider Emergency Medicine; PCP Family Medicine; Visit Provider Emergency Medicine
DX: F41.1 Generalized anxiety disorder (principal); F31.9 Bipolar disorder, unspecified; F15.90 Other stimulant use, unspecified, uncomplicated; F17.210 Nicotine dependence, cigarettes, uncomplicated; K21.9 Gastro-esophageal reflux disease without esophagitis; F41.0 Panic disorder [episodic paroxysmal anxiety]; Z79.899 Other long term (current) drug therapy
CPT/HCPCS: 96372; 99282

== ENCOUNTER 2021-11-05 01:22 | Emergency (ER) | payer MEDICARE, MEDICAID, SELFPAY ==
[2021-11-05 01:23] VITALS: BP 141/101; PULSE 107; RESP 18; TEMP 36.6; O2SAT 98; BMI 31.1
--- NOTE | 2021-11-05 01:34 | EDS_ITS ---
HPI History of Present Illness Chief Complaint: Anxiety Detail of Chief Complaint: Anxiety reaction Informant: patient Narrative Narrative: Patient presents to the emergency department with an anxiety reaction. Patient states that his significant other of 7 years told him that she wanted to be with somebody else. Patient states that his mind is racing and feels shaky and cannot sit still. Patient spoke to crisis and they referred him to the emergency department. Patient denies feeling suicidal or homicidal. He does have history of anxiety and bipolar disorder. 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 He does occasionally smoke marijuana. Patient denies feeling homicidal. Patient denies auditory or visual hallucinations. [facility] Medical History (Updated 11/05/21 @ 02:[address] Bev Mcgarry DO) Anxiety Bipolar disorder Depression GERD (gastroesophageal reflux disease) Panic attack Severe dextromethorphan use disorder Home Medications prazosin 5 mg capsule (Minipress) 2 mg PO DAILY 07/23/15 [History Last Taken 03/06/16 20:00] lurasidone 40 mg tablet (Latuda) 80 mg PO DAILY 03/07/16 [History Last Taken 03/06/16 08:00] buspirone 30 mg tablet 30 mg PO BID 03/23/17 [History Last Taken Unknown] lamotrigine 100 mg tablet 200 mg PO BID 04/24/20 [History Last Taken Unknown] omeprazole 20 mg capsule,delayed release 20 mg PO DAILY 04/24/20 [History Last Taken Unknown] fluvoxamine 100 mg tablet 100 mg PO DAILY 04/30/21 [History Last Taken Unknown] quetiapine 25 mg tablet 25 mg PO DAILY 05/14/21 [History Last Taken Unknown] paroxetine HCl 40 mg tablet tab PO 11/05/21 [History Last Taken Unknown] Allergy/AdvReac Type Severity Reaction Status Date / Time No Known Allergies Allergy Verified 07/26/21 00:54 Social History Smoking Status: Current every day smoker tobacco type: cigarettes EXAM Physical Exam Const Vital Signs: 11/05/21 01:23 Temperature 97.9 F Temperature Source Oral Pulse Rate 107 H Respiratory Rate 18 Blood Pressure 141/101 H Blood Pressure Mean 114 Pulse Ox 98 Oxygen Delivery Method Room Air MDM MDM MDM Narrative Medical decision making narrative: Patient was given Ativan 2 mg IM. Patient symptoms resolved and he is no longer shaking. At this point he is asking to be discharged to home. Patient's girlfriend states getting him home and is comfortable taking him home. Discharge Plan Triage Chief Complaint: Anxiety ED Provider: Bev Mcgarry Dx/Rx/DC Orders Clinical Impression: Anxiety reaction Instructions: ED Anxiety Reaction Prescriptions: No Action prazosin [Minipress] 5 MG capsule 2 mg PO DAILY Latuda 40 MG tablet 80 mg PO DAILY buspirone 30 MG tablet 30 mg PO BID lamotrigine 100 MG tablet 200 mg PO BID omeprazole 20 MG capsule,delayed release(DR/EC) 20 mg PO DAILY fluvoxamine 100 mg tablet 100 mg PO DAILY quetiapine 25 mg tablet 25 mg PO DAILY paroxetine HCl 40 mg tablet PO Primary Care Provider: William Castillo Referrals: William Castillo MD [Primary Care Provider] - 3-5 Days Disposition Disposition: Home, Self Care
[2021-11-05] MEDS: LORazepam 2 MG/ML Syringe IM (01:43)
[2021-11-05 03:04] VITALS: BP 121/80; PULSE 78; RESP 15; O2SAT 95
== END 2021-11-05 03:05 | disposition home or self-care (01) ==
PROVIDERS: Emergency Provider Emergency Medicine; PCP Family Medicine; Visit Provider Emergency Medicine
DX: F41.1 Generalized anxiety disorder (principal); F31.9 Bipolar disorder, unspecified; F12.10 Cannabis abuse, uncomplicated; F17.210 Nicotine dependence, cigarettes, uncomplicated; F32.A Depression, unspecified; Z79.899 Other long term (current) drug therapy

== ENCOUNTER 2021-11-05 15:13 | Emergency (ER) | payer MEDICARE, MEDICAID, SELFPAY ==
[2021-11-05] VITALS (10 sets, daily range): BP systolic 104–128; BP diastolic 71–96; PULSE 75–175; RESP 12–24; TEMP 36.2; O2SAT 94–97; BMI 30.4
--- NOTE | 2021-11-05 15:16 | EKG12_ITS ---
Test Reason : repeat Blood Pressure : / mmHG Vent. Rate : 097 BPM Atrial Rate : 097 BPM P-R Int : 140 ms QRS Dur : 092 ms QT Int : 336 ms P-R-T Axes : 032 054 036 degrees QTc Int : 426 ms Normal sinus rhythm Normal ECG Confirmed by NATALIE ALCANTARA, ALL ([id number]), food expeditor SILVIA ARDON ([id number]) on 11/06/2021 1:28:26 PM Referred By: Confirmed By:ALL ESTRADA MD
--- NOTE | 2021-11-05 15:23 | EDS_ITS ---
HPI History of Present Illness Chief Complaint: Overdose Informant: patient and EMS Narrative Narrative: Patient is a 36 year old male with history of anxiety, bipolar disorder and self-harm presenting via EMS after an intentional overdose of Seroquel. Patient states that he was arguing with his fianc?e and he told her I am going to hurt myself like you hurt me and intentionally took 20 pills of 50 mg Seroquel. Patient states it was about three quarters of the bottle. Patient mitts he was trying to hurt himself and that he intentionally overdosed but then he also states that he is not suicidal. He does not feel that he needs to be in the emergency room. Denies taking anything else. Denies any other complaints at this time. Of note patient was seen in our emergency room last night for panic attack. Does follow with the counseling center. [facility] Medical History Anxiety Bipolar disorder Depression GERD (gastroesophageal reflux disease) Panic attack Severe dextromethorphan use disorder Home Medications prazosin 5 mg capsule (Minipress) 2 mg PO DAILY 07/23/15 [History Last Taken 03/06/16 20:00] lurasidone 40 mg tablet (Latuda) 80 mg PO DAILY 03/07/16 [History Last Taken 03/06/16 08:00] buspirone 30 mg tablet 30 mg PO BID 03/23/17 [History Last Taken Unknown] omeprazole 20 mg capsule,delayed release 20 mg PO DAILY 04/24/20 [History Last Taken Unknown] quetiapine 25 mg tablet 50 - 100 mg PO DAILY PRN Anxiety 05/14/21 [History Last Taken Unknown] paroxetine HCl 40 mg tablet 1 tab PO DAILY 11/05/21 [History Last Taken Unknown] Allergy/AdvReac Type Severity Reaction Status Date / Time No Known Allergies Allergy Verified 11/05/21 15:28 Social History Smoking Status: Current every day smoker tobacco type: cigarettes ROS ROS ED Constitutional Constitutional ED: Denies chills, fever(s) or sweats Eyes Eyes: Denies change in vision ENT ENT ED: Denies rhinorrhea Cardiovascular Cardiovascular: Denies chest pain Respiratory/Chest Respiratory/Chest: Denies cough Gastrointestinal Gastrointestinal: Denies abdominal pain, diarrhea or nausea Musculoskeletal Musculoskeletal: Denies arthralgias or myalgias Integumentary Denies Abrasions or rash Neurologic Neurologic: Denies headache(s) or weakness Psychiatric Psychiatric: Reports anxiety and depression; Denies suicidal ideation or suicidal thoughts Hematologic/Lymphatic Hematologic/Lymphatic: Denies easy bleeding or easy bruising EXAM Physical Exam Const Vital Signs: 11/05/21 15:13 11/05/21 15:15 11/05/21 16:25 Temperature 97.2 F L 97.2 F L Temperature Source Oral Oral Pulse Rate 175 H 171 H 113 H Respiratory Rate 21 H 16 16 Blood Pressure 128/84 H 128/84 H 127/87 H Blood Pressure Mean 98 98 100 Pulse Ox 97 96 96 Oxygen Delivery Method Room Air Room Air Room Air 11/05/21 17:03 11/05/21 18:18 11/05/21 19:00 Temperature Temperature Source Pulse Rate 100 100 106 H Respiratory Rate 24 H 20 H 24 H Blood Pressure 106/90 H 114/96 H 116/88 H Blood Pressure Mean 95 102 97 Pulse Ox 96 96 96 Oxygen Delivery Method Room Air Room Air Room Air 11/05/21 20:00 11/05/21 21:00 11/05/21 22:00 Temperature Temperature Source Pulse Rate 105 H 75 78 Respiratory Rate 21 H 16 12 Blood Pressure 117/79 115/82 H 118/80 Blood Pressure Mean 91 93 92 Pulse Ox 96 95 96 Oxygen Delivery Method Room Air Room Air Room Air Positive well nourished and well developed General Appearance ED: well developed HEENT Reports moist mucous membranes atraumatic Eyes PERRL and EOMs intact bilaterally Eyes Narrative: pupils 4 mm bilaterally Neck supple and no JVD Resp normal respiratory effort and clear to auscultation bilaterally Cardio regular rhythm and no murmurs Rate: tachycardic GI soft to palpation, non-tender and non-distended Back/Spine Back/Spine Narrative: normal ROM Neuro oriented x3, CN's II-XII intact bilaterally and no sensory deficits noted Neuro Narrative: No rigidity of the limbs appreciated. Normal tone. Motor Exam: strength 5/5 throughout Psych Psych Narrative: Internally stimulated with rapid speech. Patient currently denies any HI or SI but does admit to intentionally overdosing on Seroquel. Attitude: agitated Mood & Affect: anxious Skin Skin Narrative: warm, dry Lesions: no lesions Rashes: no rashes MDM MDM MDM Narrative Medical decision making narrative: Patient is quite internally stimulated and tachycardic/anxious upon arrival. He is given a dose of IV Ativan. Case is discussed with poison control who states that he is on the rapid release he needs to be monitored for 6 hours with correction of any potential electrolyte abnormalities. Initial EKG shows sinus tachycardia with a prolonged QTC. Repeat EKG again interpreted by myself shows resolution of tachycardia as well as resolution of prolonged QTC. Patient has a mild hypokalemia of 3.3 and is given 40 mg oral potassium replacement. After monitoring for over 6 hours patient is medically cleared. 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 Patient to be evaluated by crisis. Patient signed out incoming physician pending psychiatric evaluation. [place] slip was filled out. Lab Data Labs: Laboratory Results - last 24 hr 11/05/21 11/05/21 11/05/21 15:25 15:25 15:25 WBC 6.3 RBC 4.91 Hgb 15.4 Hct 43.1 MCV 87.8 MCH 31.4 MCHC 35.7 RDW Std Deviation 43.9 RDW Coeff of Gabriel 13.7 Plt Count 185 MPV 8.6 Immature Gran % (Auto) 0.300 Neut % (Auto) 57.1 Lymph % (Auto) 33.0 Teller % (Auto) 5.9 Eos % (Auto) 3.2 Baso % (Auto) 0.5 Absolute Neuts (auto) 3.6 Absolute Lymphs (auto) 2.08 Nucleated RBC % 0 PT INR Sodium 140 Potassium 3.3 L Chloride 110 H Carbon Dioxide 24.0 Anion Gap 6 BUN 11 Creatinine 1.29 Estim Creat Clear Calc 86.89 Est GFR (MDRD) Af Amer 81 Est GFR (MDRD) Non-Af 67 BUN/Creatinine Ratio 8.5 L Glucose 155 H Calcium 8.9 Magnesium 2.2 Total Bilirubin 0.50 AST 14 L ALT 14 L Alkaline Phosphatase 60 Total Protein 6.8 Albumin 3.8 Globulin 3.0 Albumin/Globulin Ratio 1.3 Salicylates 3.3 Urine Opiates Screen Urine Methadone Screen Acetaminophen < 2.0 L Ur Barbiturates Screen Ur Phencyclidine Scrn Ur Amphetamines Screen MDMA (Ecstasy) Screen U Benzodiazepines Scrn Urine Cocaine Screen U Cannabinoids Screen Ur Drug Screen Comment Ethyl Alcohol < 3.0 11/05/21 11/05/21 15:25 15:44 WBC RBC Hgb Hct MCV MCH MCHC RDW Std Deviation RDW Coeff of Gabriel Plt Count MPV Immature Gran % (Auto) Neut % (Auto) Lymph % (Auto) Teller % (Auto) Eos % (Auto) Baso % (Auto) Absolute Neuts (auto) Absolute Lymphs (auto) Nucleated RBC % PT 13.8 INR 1.1 Sodium Potassium Chloride Carbon Dioxide Anion Gap BUN Creatinine Estim Creat Clear Calc Est GFR (MDRD) Af Amer Est GFR (MDRD) Non-Af BUN/Creatinine Ratio Glucose Calcium Magnesium Total Bilirubin AST ALT Alkaline Phosphatase Total Protein Albumin Globulin Albumin/Globulin Ratio Salicylates Urine Opiates Screen NEGATIVE Urine Methadone Screen NEGATIVE Acetaminophen Ur Barbiturates Screen NEGATIVE Ur Phencyclidine Scrn NEGATIVE Ur Amphetamines Screen NEGATIVE MDMA (Ecstasy) Screen NEGATIVE U Benzodiazepines Scrn NEGATIVE Urine Cocaine Screen NEGATIVE U Cannabinoids Screen POSITIVE H Ur Drug Screen Comment Ethyl Alcohol Rhythm Strip Rhythm Strip: Sinus Tach Rate: 149 Ectopy: None EKG Initial EKG: Attestation: I personally reviewed and interpreted this EKG as follows: Interpretation: Sinus Tachycardia Comments: Sinus tachycardia rate of [address] interval Normal QRS QTC prolonged at [address] segments Follow-up EKG: Attestation: I personally reviewed and interpreted this EKG as follows: Interpretation: Sinus Rhythm Comments: Normal sinus rhythm at a rate of 97 Normal axis Normal intervals Normal ST segments Compared to prior EKG patient no longer has a prolonged QTC. Discharge Plan Triage Chief Complaint: Overdose ED Provider: Kasey Gamboa Dx/Rx/DC Orders Clinical Impression: Intentional overdose, Tachycardia, Hypokalemia Prescriptions: No Action prazosin [Minipress] 5 MG capsule 2 mg PO DAILY Latuda 40 MG tablet 80 mg PO DAILY buspirone 30 MG tablet 30 mg PO BID omeprazole 20 MG capsule,delayed release(DR/EC) 20 mg PO DAILY quetiapine 25 mg tablet 50 - 100 mg PO DAILY PRN (Reason: Anxiety) paroxetine HCl 40 mg tablet 1 tab PO DAILY Primary Care Provider: William Castillo Referrals: William Castillo MD [Primary Care Provider] -
[2021-11-05] MEDS: LORazepam 2 MG/ML Syringe 1 MG IV (15:26)
[2021-11-05] MEDS: 0.9% Normal Saline 1,000 ML 999 ML IV (15:26)
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
[2021-11-05 15:38] LABS: Absolute Lymphocyte Count 2.08 X10^3/uL (0.83-4.51); Absolute Neutrophil Count 3.6 X10^3/uL (2.0-7.7); Basophil# 0.03 X10^3/uL; Basophil% 0.5 % (0-1); Eosinophils% 3.2 % (0-5); Hematocrit 43.1 % (40-54); Hemoglobin 15.4 g/dL (13.0-16.5); Lymphocyte # 2.08 X10^3/ul (0.83-4.51); Mean Corp Hgb Conc 35.7 g/dL (32-36); Mean Corpuscular Hgb 31.4 pg (27.0-32.0); Mean Corpuscular Volume 87.8 fL (80-94); Mean Platelet Vol. 8.6 fl (6.2-12.0); Monocyte# 0.37 X10^3/uL; Monocyte% 5.9 % (0-10); NRBC Flagged by Analyzer 0 % (0-5); Neutrophil # 3.61 X10^3/uL (2.7-7.7); Neutrophil % 57.1 % (47-70); Platelet Count 185 K/mm3 (150-450); RBC Distribution Width CV 13.7 % (11.6-14.6); RBC Distribution Width SD 43.9 fl (35.1-43.9); Red Blood Count 4.91 M/mm3 (4.6-6.2); White Blood Count 6.3 K/mm3 (4.4-11.0)
[2021-11-05 15:49] LABS: International Normalized Ratio 1.1; Prothrombin Time (Protime)PT. 13.8 SECONDS (11.7-14.9)
[2021-11-05 16:03] LABS: Amphetamine Urine VISTA NEGATIVE (<1000 ng/mL); Barbiturate Urine VISTA NEGATIVE (< 200 ng/mL); Benzodiazepine Urine VISTA NEGATIVE (< 200 ng/mL); Cocaine Urine VISTA NEGATIVE (< 300 ng/mL); Ecstacy Urine VISTA NEGATIVE (< 500 ng/mL); Methadone Urine VISTA NEGATIVE (< 300 ng/mL); PCP Urine VISTA NEGATIVE (< 25 ng/mL); THC Urine VISTA POSITIVE (< 50 ng/mL); Vista UDS pH Range 6
[2021-11-05 16:03] LABS: ALB/GLOB Ratio 1.3 RATIO (0.9-2.4); AST(SGOT) 14 U/L (15-37); Alanine Aminotransfer ALT/SGPT 14 U/L (16-61); Albumin, Serum 3.8 g/dL (3.2-5.0); Alkaline Phosphatase 60 U/L (45-117); Anion Gap 6 (5-15); BUN 11 mg/dL (7-18); BUN/Creat Ratio 8.5 RATIO (10-20); Calcium,Total 8.9 mg/dL (8.5-10.1); Chloride 110 mmol/L (98-107); Creatinine, Serum 1.29 mg/dL (0.70-1.30); EST Glomerular Filtration Rate 67 mL/min (>60); Est Glom Filt Rate - Afr Amer 81 mL/min (>60); Estimated Creatinine Clearance 86.89 ml/min; Glucose 155 mg/dL (74-106); Magnesium 2.2 mg/dL (1.6-2.6); Potassium 3.3 mmol/L (3.5-5.1); Protein, Total 6.8 g/dL (6.4-8.2); Sodium Level 140 mmol/L (136-145)
[2021-11-05 16:05] LABS: Acetaminophen (Tylenol) Level < 2.0 ug/mL (10.0-30.0); Alcohol, Blood (Medical)-Serum < 3.0 mg/dL; Salicylate 3.3 mg/dL (2.8-20.0)
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
--- NOTE | 2021-11-05 20:13 | EKG12_ITS ---
Test Reason : high hr Blood Pressure : / mmHG Vent. Rate : 149 BPM Atrial Rate : 149 BPM P-R Int : 112 ms QRS Dur : 092 ms QT Int : 324 ms P-R-T Axes : 020 068 036 degrees QTc Int : 510 ms Sinus tachycardia Nonspecific [address] and T wave abnormality Abnormal ECG Confirmed by NATALIE ALCANTARA, ALL ([id number]), fashion editor SILVIA ARDON ([id number]) on 11/06/2021 1:28:42 PM Referred By: Confirmed By:ALL ESTRADA MD
[2021-11-05] MEDS: Potassium Chloride Oral Tablet 20 MEQ 40 MEQ PO (20:35)
--- NOTE | 2021-11-05 22:23 | NURSING ---
Referrals being made by cc
[2021-11-06] VITALS (9 sets, daily range): BP systolic 98–124; BP diastolic 69–90; PULSE 63–86; RESP 14–19; TEMP 36.6–37.1; O2SAT 94–96
--- NOTE | 2021-11-06 03:59 | NURSING ---
Addendum entered by Parul Sarah 11/06/21 04:05: TRANSPORT ETA 0845AM. Original Note: HAS BEEN ACCEPTED TO [facility]. REQUEST FOR TRANSPORT AFTER 7AM DUE TO STAFFING.
--- NOTE | 2021-11-06 07:17 | ED.RN ---
PT MEDICATED PER SRIDEVI OSORIO. IV REMOVED
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
== END 2021-11-06 09:11 ==
PROVIDERS: Emergency Provider Emergency Medicine; PCP Family Medicine; Visit Provider Emergency Medicine
DX: T43.592A Poisoning by other antipsychotics and neuroleptics, intentional self-harm, initial encounter (principal); F12.99 Cannabis use, unspecified with unspecified cannabis-induced disorder; F31.9 Bipolar disorder, unspecified; R45.88 Nonsuicidal self-harm; E87.6 Hypokalemia; F41.9 Anxiety disorder, unspecified; F17.210 Nicotine dependence, cigarettes, uncomplicated; R00.0 Tachycardia, unspecified; Z79.899 Other long term (current) drug therapy; Z20.822 Contact with and (suspected) exposure to COVID-19
CPT/HCPCS: 80053; 80307; 80329; 82077; 83735; 85025; 85610; 87811; 93005; 96361; 96374; 99282; 99285; J7030; A4216; G0480; J3486

== ENCOUNTER 2022-08-15 09:29 | Emergency (ER) | payer MEDICARE, MEDICAID, SELFPAY ==
[2022-08-15 09:31] VITALS: BP 153/94; PULSE 94; RESP 16; TEMP 35.8; O2SAT 97; BMI 30.9
--- NOTE | 2022-08-15 10:03 | EX.ED.VIS.PS ---
HPI HPI - Psych History of Present Illness Chief Complaint: Mental Health Detail of Chief Complaint: Anxiety and difficulty sleeping Informant: patient Narrative Narrative: Patient presents to the emergency department complaining of trouble sleeping for the last 2 weeks. Patient states that his psychiatrist prescribed him Seroquel yesterday but he still had a hard time sleeping last night. States that over the last 2 nights has been waking up every hour. Patient denies feeling suicidal or homicidal. Patient currently not taking any medications for anxiety. Patient also with history of prior sleep apnea but does not have a CPAP machine currently and he is trying to follow-up with his primary care physician to try to get another one ordered for him. [facility] Medical History Anxiety Bipolar disorder Depression GERD (gastroesophageal reflux disease) Panic attack Severe dextromethorphan use disorder Home Medications quetiapine 25 mg tablet 50 - 100 mg PO DAILY PRN Anxiety 05/14/21 [History Last Taken Unknown] lorazepam 1 mg tablet (Ativan) 1 mg PO TID PRN anxiety #10 tabs 08/15/22 [Rx Last Taken Unknown] Allergy/AdvReac Type Severity Reaction Status Date / Time No Known Allergies Allergy Verified 08/15/22 09:33 Social History Smoking Status: Current every day smoker tobacco type: cigarettes ROS ROS ED Review of Systems ROS Unobtainable: other Constitutional Constitutional ED: Reports lethargy; Denies chills, fever(s), sweats or weight loss Eyes Eyes: Denies blurry vision, change in vision or diplopia ENT ENT ED: Denies rhinorrhea or sore throat Cardiovascular Cardiovascular: Denies chest pain, orthopnea or racing heartbeat Respiratory/Chest Respiratory/Chest: Denies cough, dyspnea, dyspnea on exertion, orthopnea or sputum Gastrointestinal Gastrointestinal: Denies abdominal pain, diarrhea, nausea or vomiting Genitourinary Genitourinary ED: Denies dysuria, hematuria or urinary frequency Musculoskeletal Musculoskeletal: Denies arthralgias, back pain, myalgias or neck pain Integumentary Denies abscess, Abrasions or rash Neurologic Neurologic: Denies headache(s) or weakness Psychiatric Psychiatric: Reports anxiety and other Details: Anxiety and difficulty sleeping ; Denies depression or suicidal thoughts Endocrine Endocrinology: Denies polydipsia, polyphagia or polyuria Hematologic/Lymphatic Hematologic/Lymphatic: Denies easy bleeding, easy bruising or lymphadenopathy Allergic/Immunologic Allergic/Immunologic ED: Denies mouth swelling, tongue swelling or urticaria EXAM Physical Exam Const Vital Signs: 08/15/22 09:31 Temperature 96.4 F L Temperature Source Temporal Pulse Rate 94 Respiratory Rate 16 Blood Pressure 153/94 H Blood Pressure Mean 113 Pulse Ox 97 Oxygen Delivery Method Room Air Positive well nourished and well developed General Appearance ED: well developed and NAD HEENT Reports TM's clear and moist mucous membranes normocephalic and atraumatic; Negative for trauma or tenderness Tympanic Membrane ED: Yes TM's clear Eyes PERRL and EOMs intact bilaterally General Eye ED: Negative for pale conjunctiva or scleral icterus Neck no lymphadenopathy, supple and no JVD General: Negative for tenderness Chest Wall inspection of chest normal and palpation of chest normal Chest: Negative for tenderness Resp normal respiratory effort and clear to auscultation bilaterally Effort and Inspection: Negative for respiratory distress or pain with movement Auscultation: Negative for rhonchi, wheezes or diminished lung sounds Cardio regular rate, regular rhythm, S1 normal heart sound, S2 normal heart sound and no murmurs Peripheral Pulses: pulses 2+ throughout GI normal to inspection, nondistended, normoactive bowel sounds, soft to palpation, non-tender, non-distended and no masses Back/Spine no CVA tenderness and no thoracic nor lumbar tenderness Extremity normal to inspection General Extremety ED: Negative for edema General Extremity: Negative for edema Neuro oriented x3, CN's II-XII intact bilaterally, no sensory deficits noted and gait normal Sensorium / Orientation: awake, alert, oriented to person, oriented to place and oriented to time Motor Exam: strength 5/5 throughout and strength abnormal Psych mental status grossly normal Skin no rashes or lesions noted and no wounds MDM MDM MDM Narrative Medical decision making narrative: Patient presents with anxiety and difficulty sleeping for about 2 weeks. I will write him a prescription for Ativan and gave him 1 dose in the emergency department. He is instructed to continue with the Seroquel and follow-up with his primary care physician as well as psychiatrist within next 3 to 5 days. Patient not acutely suicidal or homicidal. Patient discharged home stable condition. Discharge Plan Triage Chief Complaint: Mental Health ED Provider: Bev Mcgarry Dx/Rx/DC Orders Clinical Impression: Anxiety, Insomnia Instructions: What Is Insomnia?, ED Anxiety Reaction, ED Insomnia Prescriptions: New lorazepam [Ativan] 1 mg tablet 1 mg PO TID PRN (Reason: anxiety) Qty: 10 0RF No Action quetiapine 25 mg tablet 50 - 100 mg PO DAILY PRN (Reason: Anxiety) Primary Care Provider: William Castillo Referrals: William Castillo MD [Primary Care Provider] - 3-5 Days Disposition Disposition: Home, Self Care
[2022-08-15] MEDS: LORazepam 1 MG Tablet PO (10:07)
== END 2022-08-15 11:01 | disposition home or self-care (01) ==
PROVIDERS: Emergency Provider Emergency Medicine; PCP Family Medicine; Visit Provider Emergency Medicine
DX: F41.9 Anxiety disorder, unspecified (principal); F31.9 Bipolar disorder, unspecified; F17.210 Nicotine dependence, cigarettes, uncomplicated; G47.00 Insomnia, unspecified; G47.30 Sleep apnea, unspecified; K21.9 Gastro-esophageal reflux disease without esophagitis; Z79.899 Other long term (current) drug therapy
CPT/HCPCS: 99283

== ENCOUNTER 2022-08-15 21:05 | Emergency (ER) | payer MEDICARE, MEDICAID, SELFPAY ==
[2022-08-15 21:05] VITALS: BP 160/109; PULSE 115; RESP 20; TEMP 36.7; O2SAT 100
[2022-08-15 21:27] VITALS: BMI 30.8
--- NOTE | 2022-08-15 21:49 | EDS_ITS ---
HPI HPI - Psych History of Present Illness Chief Complaint: Mental Health Informant: patient and mental health staff Narrative Narrative: Patient presents for the second time today for insomnia. He has been talking to crisis off and on all day today, they advised him to come to the ER because Venessa the older worker specialist has assessed him as being acutely manic and thinks he should be placed. Patient has had pressured speech all day today. He has not been able to sleep for the past 2 weeks, worse in the past several days. He has a history of bipolar disorder but states he really was taking medications for anxiety, which he really wanted to get off of. Therefore this past March he and his psychiatrist, according to him, mutually decided to get him off of all of his medications so that he could try without them. He recently was put back on Seroquel by psychiatry while he has had insomnia, he states he took it once and it made him sweat and uncomfortable so he did not take it again. He denies any drug use. 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 [facility] Medical History Anxiety Bipolar disorder Depression GERD (gastroesophageal reflux disease) Panic attack Severe dextromethorphan use disorder Home Medications quetiapine 25 mg tablet 50 - 100 mg PO DAILY PRN Anxiety 05/14/21 [History Last Taken Unknown] lorazepam 1 mg tablet (Ativan) 1 mg PO TID PRN anxiety #10 tabs 08/15/22 [Rx Last Taken Unknown] Allergy/AdvReac Type Severity Reaction Status Date / Time No Known Allergies Allergy Verified 08/15/22 21:07 Social History Smoking Status: Current every day smoker tobacco type: cigarettes ROS ROS ED Constitutional Constitutional ED: Denies chills or fever(s) Eyes Eyes: Denies change in vision or diplopia ENT ENT ED: Denies rhinorrhea or sore throat Cardiovascular Cardiovascular: Denies chest pain or palpitations Respiratory/Chest Respiratory/Chest: Denies cough or dyspnea Gastrointestinal Gastrointestinal: Denies abdominal pain, diarrhea, nausea or vomiting Genitourinary Genitourinary ED: Denies dysuria or hematuria Musculoskeletal Musculoskeletal: Denies back pain or neck pain Integumentary Denies abscess or rash Neurologic Neurologic: Denies headache(s), paresthesias or weakness Psychiatric Psychiatric: Reports anxiety; Denies suicidal ideation or suicidal thoughts EXAM Physical Exam Const Vital Signs: 08/15/22 21:05 08/16/22 00:00 Temperature 98.1 F Temperature Source Temporal Pulse Rate 115 H 77 Respiratory Rate 20 H 16 Blood Pressure 160/109 H 151/111 H Blood Pressure Mean 126 124 Pulse Ox 100 97 Oxygen Delivery Method Room Air Room Air Positive well nourished and well developed General Appearance ED: well developed and NAD HEENT Reports moist mucous membranes normocephalic and atraumatic Eyes PERRL and EOMs intact bilaterally Neck full ROM and supple Resp normal respiratory effort and clear to auscultation bilaterally Cardio regular rate, regular rhythm and no murmurs GI non-tender and non-distended Auscultation: normoactive bowel sounds Palpation: soft Back/Spine no CVA tenderness General Back: other FROM Extremity normal to inspection General Extremety ED: Negative for edema, pulses abnormal or tenderness General Extremity: Negative for edema or pulses abnormal Neuro oriented x3, CN's II-XII intact bilaterally and no sensory deficits noted Sensorium / Orientation: awake and alert Motor Exam: strength 5/5 throughout Psych cooperative, denies hallucinations, denies homicidal ideation and denies suicidal ideation Appearance: appropriate and well kempt Activity / Motor Behavior: appropriate eye contact, fidgetting and restless Speech: rapid, No loud and pressured Skin no rashes or lesions noted and no wounds MDM MDM MDM Narrative Medical decision making narrative: I agree that all of this is consistent with acute ovi especially given his history of bipolar disorder and discontinuing all of his medications months ago. Work-up obtained including TSH, COVID, toxicology. All unremarkable except for the presence of marijuana. He is medically cleared. Crisis evaluating for placement and in agreement. Lab Data Attestation: I reviewed the patient's lab results. Labs: Laboratory Results - last 24 hr 08/15/22 08/15/22 08/15/22 21:50 21:50 21:50 WBC 8.1 RBC 5.41 Hgb 16.1 Hct 46.8 MCV 86.5 MCH 29.8 MCHC 34.4 RDW Std Deviation 43.4 RDW Coeff of Gabriel 13.7 Plt Count 293 MPV 8.6 Immature Gran % (Auto) 0.400 Neut % (Auto) 53.5 Lymph % (Auto) 37.3 Lawrence % (Auto) 6.0 Eos % (Auto) 2.4 Baso % (Auto) 0.4 Absolute Neuts (auto) 4.3 Absolute Lymphs (auto) 3.00 Nucleated RBC % 0 Sodium 141 Potassium 3.7 Chloride 109 H Carbon Dioxide 24.0 Anion Gap 8 BUN 15 Creatinine 1.34 H Estim Creat Clear Calc 82.84 Est GFR (MDRD) Af Amer 77 Est GFR (MDRD) Non-Af 64 BUN/Creatinine Ratio 11.2 Glucose 101 Calcium 9.4 TSH 2.29 Urine Opiates Screen Urine Methadone Screen Ur Barbiturates Screen Ur Phencyclidine Scrn Ur Amphetamines Screen MDMA (Ecstasy) Screen U Benzodiazepines Scrn Urine Cocaine Screen U Cannabinoids Screen Ur Drug Screen Comment Ethyl Alcohol < 3.0 08/15/22 21:50 WBC RBC Hgb Hct MCV MCH MCHC RDW Std Deviation RDW Coeff of Gabriel Plt Count MPV Immature Gran % (Auto) Neut % (Auto) Lymph % (Auto) Lawrence % (Auto) Eos % (Auto) Baso % (Auto) Absolute Neuts (auto) Absolute Lymphs (auto) Nucleated RBC % Sodium Potassium Chloride Carbon Dioxide Anion Gap BUN Creatinine Estim Creat Clear Calc Est GFR (MDRD) Af Amer Est GFR (MDRD) Non-Af BUN/Creatinine Ratio Glucose Calcium TSH Urine Opiates Screen NEGATIVE Urine Methadone Screen NEGATIVE Ur Barbiturates Screen NEGATIVE Ur Phencyclidine Scrn NEGATIVE Ur Amphetamines Screen NEGATIVE MDMA (Ecstasy) Screen NEGATIVE U Benzodiazepines Scrn NEGATIVE Urine Cocaine Screen NEGATIVE U Cannabinoids Screen POSITIVE H Ur Drug Screen Comment Ethyl Alcohol Discharge Plan Triage Chief Complaint: Mental Health ED Provider: Fito Nunn Dx/Rx/DC Orders Clinical Impression: Bipolar I disorder with ovi Prescriptions: No Action quetiapine 25 mg tablet 50 - 100 mg PO DAILY PRN (Reason: Anxiety) lorazepam [Ativan] 1 mg tablet 1 mg PO TID PRN (Reason: anxiety) Qty: 10 0RF Primary Care Provider: William Castillo Referrals: William Castillo MD [Primary Care Provider] - Disposition Disposition: Psychiatric Hospital or Unit
[2022-08-15 22:09] LABS: Absolute Neutrophil Count 4.3 X10^3/uL (2.0-7.7); Basophil# 0.03 X10^3/uL; Basophil% 0.4 % (0-1); Eosinophil# 0.19 X10^3/uL; Eosinophils% 2.4 % (0-5); Hematocrit 46.8 % (40-54); Hemoglobin 16.1 g/dL (13.0-16.5); Lymphocyte % 37.3 % (19-41); Mean Corp Hgb Conc 34.4 g/dL (32-36); Mean Corpuscular Hgb 29.8 pg (27.0-32.0); Mean Corpuscular Volume 86.5 fL (80-94); Mean Platelet Vol. 8.6 fl (6.2-12.0); Monocyte# 0.48 X10^3/uL; NRBC Flagged by Analyzer 0 % (0-5); Neutrophil # 4.32 X10^3/uL (2.7-7.7); Neutrophil % 53.5 % (47-70); Platelet Count 293 K/mm3 (150-450); RBC Distribution Width CV 13.7 % (11.6-14.6); RBC Distribution Width SD 43.4 fl (35.1-43.9); Red Blood Count 5.41 M/mm3 (4.6-6.2); White Blood Count 8.1 K/mm3 (4.4-11.0)
[2022-08-15 22:37] LABS: Alcohol, Blood (Medical)-Serum < 3.0 mg/dL
[2022-08-15 22:49] LABS: Anion Gap 8 (5-15); BUN 15 mg/dL (7-18); BUN/Creat Ratio 11.2 RATIO (10-20); Calcium,Total 9.4 mg/dL (8.5-10.1); Chloride 109 mmol/L (98-107); Creatinine, Serum 1.34 mg/dL (0.70-1.30); EST Glomerular Filtration Rate 64 mL/min (>60); Est Glom Filt Rate - Afr Amer 77 mL/min (>60); Estimated Creatinine Clearance 82.84 ml/min; Glucose 101 mg/dL (74-106); Potassium 3.7 mmol/L (3.5-5.1); Sodium Level 141 mmol/L (136-145); Thyroid Stim Hormone (TSH) 2.29 uIU/mL (0.358-3.74)
[2022-08-15 22:52] LABS: Amphetamine Urine VISTA NEGATIVE (<1000 ng/mL); Barbiturate Urine VISTA NEGATIVE (< 200 ng/mL); Benzodiazepine Urine VISTA NEGATIVE (< 200 ng/mL); Cocaine Urine VISTA NEGATIVE (< 300 ng/mL); Ecstacy Urine VISTA NEGATIVE (< 500 ng/mL); Methadone Urine VISTA NEGATIVE (< 300 ng/mL); PCP Urine VISTA NEGATIVE (< 25 ng/mL); THC Urine VISTA POSITIVE (< 50 ng/mL); Vista UDS pH Range 5
[2022-08-16] VITALS: BP 151/111; PULSE 77; RESP 16; O2SAT 97
[2022-08-16] MEDS: LORazepam 1 MG Tablet PO (00:30)
[2022-08-16] MEDS: QUEtiapine 25 MG Tablet 50 MG PO (00:30)
--- NOTE | 2022-08-16 05:04 | NURSING ---
attempted to call nurse to nurse report, intake states nurse is at break and will call back
[2022-08-16 05:37] VITALS: BP 138/97; PULSE 77; RESP 16; TEMP 36.2; O2SAT 95
--- NOTE | 2022-08-16 06:35 | NURSING ---
this RN called report and report given to Raymundo @ [facility], transport to be here @ [phone]
--- NOTE | 2022-08-16 08:07 | NURSING ---
I JUST TALKED TO PHYSICIANS AND THEY ARE DELAYED. THEY SHOULD BE HERE WITHIN THE HOUR
[2022-08-16 08:24] VITALS: RESP 16
[2022-08-16 10:42] VITALS: RESP 16
== END 2022-08-16 11:03 ==
PROVIDERS: Emergency Provider Emergency Medicine; PCP Family Medicine; Visit Provider Emergency Medicine
DX: F31.9 Bipolar disorder, unspecified (principal); G47.00 Insomnia, unspecified; F41.9 Anxiety disorder, unspecified; F17.210 Nicotine dependence, cigarettes, uncomplicated; Z72.6 Gambling and betting; K21.9 Gastro-esophageal reflux disease without esophagitis; G47.30 Sleep apnea, unspecified; Z79.899 Other long term (current) drug therapy
CPT/HCPCS: 80048; 80307; 82077; 84443; 85025; 87811; 99283

== ENCOUNTER 2022-09-20 01:44 | Emergency (ER) | payer MEDICARE, MEDICAID, SELFPAY ==
[2022-09-20 01:46] VITALS: BP 154/116; PULSE 131; RESP 22; TEMP 36.7; O2SAT 96
--- NOTE | 2022-09-20 02:04 | RAD_ITS ---
EXAM: XR CHEST, 1 VIEW CLINICAL INDICATION: chest pain TECHNIQUE: Frontal view of the chest. COMPARISON: No relevant prior studies available. FINDINGS: LUNGS AND PLEURAL SPACES: Unremarkable. No consolidation or edema. No pneumothorax. No effusion. HEART: Unremarkable. Cardiac silhouette not enlarged. MEDIASTINUM: Central airways and mediastinal contour are unremarkable. BONES/JOINTS: Unremarkable. SOFT TISSUES: Unremarkable. RAD/Chest 1 View (Portable) IMPRESSION: No radiographic evidence of acute cardiopulmonary disease. Electronically Signed: Brian Kennedy MD at 3:07 EDT ,
--- NOTE | 2022-09-20 02:04 | EKG12_ITS ---
Test Reason : TACHY Blood Pressure : / mmHG Vent. Rate : 124 BPM Atrial Rate : 124 BPM P-R Int : 130 ms QRS Dur : 084 ms QT Int : 314 ms P-R-T Axes : 038 048 022 degrees QTc Int : 451 ms Sinus tachycardia Otherwise normal ECG Confirmed by BHANU ALCANTARA, LENI ([id number]), commissioning editor SILVIA ARDON ([id number]) on 09/21/2022 11:02:31 A M Referred By: MARIA ANTONIA Confirmed By:LEANDRO DRUMMOND MD
--- NOTE | 2022-09-20 02:05 | EDS_ITS ---
HPI History of Present Illness Chief Complaint: Anxiety Narrative Narrative: 37-year-old male past medical history of anxiety, states that he has been sober from marijuana use for the last few weeks to month, he states his girlfriend still uses marijuana, and she said some hurtful things to him this evening. He states he cannot be around marijuana but ended up smoking a joint at around 8 PM. Hours ago. He states he starts feeling heart palpitations and anxiety, and cannot calm down. He denies any nausea or vomiting. No sweating or shortness of breath. States he called crisis who told him to come here. He also called his support. He keeps thinking back to the hurtful things that his girlfriend told him, and he starts feeling heart palpitations again. This is happened to him in the past where he had elevated blood pressure and heart palpitations. He states he cannot calm down. He denies any suicidal ideation or homicidal ideation, no hallucinations currently. [facility] Medical History Anxiety Bipolar disorder Depression GERD (gastroesophageal reflux disease) Panic attack Severe dextromethorphan use disorder Home Medications gabapentin 100 mg capsule 100 mg PO TID 09/20/22 [History Last Taken Unknown] lorazepam 1 mg tablet (Ativan) 0.5 mg PO DAILY 09/20/22 [History Last Taken Unkn own] prazosin 1 mg capsule 1 mg PO QHS 09/20/22 [History Last Taken Unknown] Allergy/AdvReac Type Severity Reaction Status Date / Time No Known Allergies Allergy Verified 08/15/22 21:07 Social History Smoking Status: Current every day smoker tobacco type: cigarettes ROS ROS ED ROS Narrative Constitutional: No fever, no chills. HEENT: No sore throat. No neck pain. No loss of vision. No rhinorrhea. Cardiovascular: No chest pain. Positive palpitations. No pedal edema. Respiratory: No cough, no shortness of breath. Abdominal: No abdominal pain. No nausea. No vomiting. Genitourinary: No dysuria. No hematuria. Musculoskeletal: No myalgias. No arthralgias. Neurologic: No headaches. No dizziness. No lightheadedness. Skin: No rash. No change in color. Psychiatric: No depression. Positive anxiety. EXAM Physical Exam Narrative Exam Narrative: Afebrile. Vital signs noted. HEENT: Normocephalic. Atraumatic. PERRL, EOMI. Neck soft and supple. No point tenderness or step off. Cardiovascular: Positive tachycardia no murmurs, rubs, or gallops appreciated. Respiratory: No tachypnea. Lungs clear to auscultation bilaterally. Gastrointestinal: Abdomen soft, nontender, with normoactive bowel sounds. No rebound or guarding. Neurological: Awake. Alert. Nonfocal, nonlateralizing. Jittery legs. Skin: No rash. Normal color. No pallor. Musculoskeletal: No pedal edema. Full range of motion extremities. Psychiatric: No suicidal ideation, no hallucinations. Const Vital Signs: 09/20/22 01:46 09/20/22 02:29 Temperature 98.0 F Temperature Source Oral Pulse Rate 131 H Respiratory Rate 22 H Blood Pressure 154/116 H Blood Pressure Mean 128 Pulse Ox 96 Oxygen Delivery Method Room Air Room Air MDM MDM MDM Narrative Medical decision making narrative: I reviewed the patient's prior records. He has problems with bipolar disorder, and panic attacks. I do feel that he is having more of a panic attack currently. He does take lorazepam reportedly according to the EMR. EKG was obtained which demonstrates sinus tachycardia at 124 bpm without ectopy or acute ST changes. No STEMI. I will obtain basic laboratory work and a chest x-ray, I do feel a single troponin would be the only thing that is needed. I think by giving him Ativan 1 mg, this would be helpful. He had received this in the past. I reviewed his laboratory work and he has a normal white count of 7.1, hemoglobin normal at 14.4, platelet count normal 233. Chloride is slightly elevated on his BMP at 109 which I think is nonspecific, he has a normal potassium of 3.9, glucose appropriately elevated at 118 with a normal anion gap of 6. Creatinine normal at 1.30. High-sensitivity troponin is 5. Upon repeat examination, he is resting comfortably and his heart rate was 97 when he was sleeping. However, when he awoke, it increased above 100 again. I do feel that this is related to mild anxiety. He was told to avoid use of marijuana in the future. I feel he can be discharged safely home to follow-up with his primary care provider. Return instructions to the emergency department were reviewed. Disposition is discharged home in stable condition. History & Record Review Discussion w/independent historian: Patient Additional record(s) reviewed:: Prior ED visit Lab Data Attestation: I reviewed the patient's lab results. Labs: Laboratory Results - last 24 hr 09/20/22 09/20/22 02:20 02:20 WBC 7.1 RBC 4.77 Hgb 14.4 Hct 41.8 MCV 87.6 MCH 30.2 MCHC 34.4 RDW Std Deviation 44.5 H RDW Coeff of Gabriel 14.0 Plt Count 233 MPV 8.3 Immature Gran % (Auto) 0.300 Neut % (Auto) 68.7 Lymph % (Auto) 25.6 Grundy % (Auto) 4.7 Eos % (Auto) 0.4 Baso % (Auto) 0.3 Absolute Neuts (auto) 4.9 Absolute Lymphs (auto) 1.81 Nucleated RBC % 0 Sodium 140 Potassium 3.9 Chloride 109 H Carbon Dioxide 25.0 Anion Gap 6 BUN 14 Creatinine 1.30 Estim Creat Clear Calc 85.39 Est GFR (MDRD) Af Amer 80 Est GFR (MDRD) Non-Af 66 BUN/Creatinine Ratio 10.8 Glucose 118 H Calcium 9.1 Troponin I High Sens 5 Radiography Diagnostic Testing: Clinical Impression(s) from Imaging Studies Chest X-Ray 09/20/22 02:04 IMPRESSION: No radiographic evidence of acute cardiopulmonary disease. Electronically Signed: Brian Kennedy MD at 3:07 EDT , Discharge Plan Triage Chief Complaint: Anxiety ED Provider: Nader Arceo Dx/Rx/DC Orders Clinical Impression: Anxiety, Palpitations, Sinus tachycardia Instructions: ED Anxiety Reaction, ED About Arrhythmias, ED Palpitations Prescriptions: No Action prazosin 1 mg capsule 1 mg PO QHS gabapentin 100 mg capsule 100 mg PO TID lorazepam [Ativan] 1 mg tablet 0.5 mg PO DAILY Primary Care Provider: William Castillo Referrals: William Castillo MD [Primary Care Provider] - As soon as possible Disposition Disposition: Home, Self Care
[2022-09-20 02:30] VITALS: BMI 31.3
[2022-09-20] MEDS: LORazepam 2 MG/ML Syringe 1 MG IV (02:30)
[2022-09-20] MEDS: 0.9% Normal Saline 1,000 ML 1000 ML IV (02:30)
[2022-09-20 02:32] LABS: Absolute Lymphocyte Count 1.81 X10^3/uL (0.83-4.51); Absolute Neutrophil Count 4.9 X10^3/uL (2.0-7.7); Basophil# 0.02 X10^3/uL; Basophil% 0.3 % (0-1); Eosinophil# 0.03 X10^3/uL; Eosinophils% 0.4 % (0-5); Hematocrit 41.8 % (40-54); Hemoglobin 14.4 g/dL (13.0-16.5); Lymphocyte # 1.81 X10^3/ul (0.83-4.51); Lymphocyte % 25.6 % (19-41); Mean Corp Hgb Conc 34.4 g/dL (32-36); Mean Corpuscular Hgb 30.2 pg (27.0-32.0); Mean Corpuscular Volume 87.6 fL (80-94); Mean Platelet Vol. 8.3 fl (6.2-12.0); Monocyte# 0.33 X10^3/uL; Monocyte% 4.7 % (0-10); NRBC Flagged by Analyzer 0 % (0-5); Neutrophil # 4.85 X10^3/uL (2.7-7.7); Neutrophil % 68.7 % (47-70); Platelet Count 233 K/mm3 (150-450); RBC Distribution Width SD 44.5 fl (35.1-43.9); Red Blood Count 4.77 M/mm3 (4.6-6.2); White Blood Count 7.1 K/mm3 (4.4-11.0)
[2022-09-20 02:52] LABS: Anion Gap 6 (5-15); BUN 14 mg/dL (7-18); BUN/Creat Ratio 10.8 RATIO (10-20); Calcium,Total 9.1 mg/dL (8.5-10.1); Chloride 109 mmol/L (98-107); EST Glomerular Filtration Rate 66 mL/min (>60); Est Glom Filt Rate - Afr Amer 80 mL/min (>60); Estimated Creatinine Clearance 85.39 ml/min; Glucose 118 mg/dL (74-106); Potassium 3.9 mmol/L (3.5-5.1); Sodium Level 140 mmol/L (136-145); Troponin-I HS 5 pg/mL (3.0-78.0)
[2022-09-20 03:23] VITALS: BP 118/79; PULSE 100; RESP 16; O2SAT 96
== END 2022-09-20 03:26 | disposition home or self-care (01) ==
PROVIDERS: Emergency Provider Emergency Medicine; PCP Family Medicine; Visit Provider Emergency Medicine
DX: F41.9 Anxiety disorder, unspecified (principal); F31.9 Bipolar disorder, unspecified; F17.210 Nicotine dependence, cigarettes, uncomplicated
CPT/HCPCS: 71045; 80048; 84484; 85025; 93005; 96361; 96374; 99284; J7030; A4216

== ENCOUNTER 2022-11-11 02:05 | Emergency (ER) | payer MEDICARE, BC, MEDICAID, SELFPAY ==
[2022-11-11 02:07] VITALS: BP 119/89; PULSE 99; RESP 16; TEMP 35.9; O2SAT 99; BMI 31.5
--- NOTE | 2022-11-11 02:32 | EKG12_ITS ---
Test Reason : MHC Blood Pressure : / mmHG Vent. Rate : 087 BPM Atrial Rate : 087 BPM P-R Int : 144 ms QRS Dur : 094 ms QT Int : 368 ms P-R-T Axes : 029 032 015 degrees QTc Int : 442 ms Normal sinus rhythm Normal ECG Confirmed by BHANU ALCANTARA, LENI ([id number]), editorial manager PACO MANZANO ([id number]) on 11/16/2022 9:14:54 AM Referred By: Confirmed By:LEANDRO DRUMMOND MD
[2022-11-11 02:55] LABS: Absolute Lymphocyte Count 2.27 X10^3/uL (0.83-4.51); Absolute Neutrophil Count 3.5 X10^3/uL (2.0-7.7); Basophil# 0.02 X10^3/uL; Basophil% 0.3 % (0-1); Eosinophil# 0.14 X10^3/uL; Eosinophils% 2.2 % (0-5); Hematocrit 41.8 % (40-54); Hemoglobin 14.5 g/dL (13.0-16.5); Lymphocyte # 2.27 X10^3/ul (0.83-4.51); Lymphocyte % 35.2 % (19-41); Mean Corp Hgb Conc 34.7 g/dL (32-36); Mean Corpuscular Hgb 30.4 pg (27.0-32.0); Mean Corpuscular Volume 87.6 fL (80-94); Mean Platelet Vol. 8.7 fl (6.2-12.0); Monocyte# 0.48 X10^3/uL; Monocyte% 7.5 % (0-10); NRBC Flagged by Analyzer 0 % (0-5); Neutrophil # 3.52 X10^3/uL (2.7-7.7); Neutrophil % 54.6 % (47-70); Platelet Count 225 K/mm3 (150-450); RBC Distribution Width CV 13.4 % (11.6-14.6); RBC Distribution Width SD 43.2 fl (35.1-43.9); Red Blood Count 4.77 M/mm3 (4.6-6.2); White Blood Count 6.4 K/mm3 (4.4-11.0)
[2022-11-11 03:14] LABS: Anion Gap 6 (5-15); BUN 16 mg/dL (7-18); BUN/Creat Ratio 11.6 RATIO (10-20); Calcium,Total 8.7 mg/dL (8.5-10.1); Chloride 109 mmol/L (98-107); Creatinine, Serum 1.38 mg/dL (0.70-1.30); EST Glomerular Filtration Rate 61 mL/min (>60); Est Glom Filt Rate - Afr Amer 74 mL/min (>60); Estimated Creatinine Clearance 80.44 ml/min; Glucose 112 mg/dL (74-106); Potassium 3.3 mmol/L (3.5-5.1); Sodium Level 143 mmol/L (136-145)
[2022-11-11 03:37] LABS: Acetaminophen (Tylenol) Level < 2.0 ug/mL (10.0-30.0); Salicylate < 1.7 mg/dL (2.8-20.0)
[2022-11-11 03:40] LABS: Alcohol, Blood (Medical)-Serum < 3.0 mg/dL
[2022-11-11 04:04] LABS: Amphetamine Urine VISTA NEGATIVE (<1000 ng/mL); Barbiturate Urine VISTA NEGATIVE (< 200 ng/mL); Benzodiazepine Urine VISTA NEGATIVE (< 200 ng/mL); Cocaine Urine VISTA NEGATIVE (< 300 ng/mL); Ecstacy Urine VISTA NEGATIVE (< 500 ng/mL); Methadone Urine VISTA NEGATIVE (< 300 ng/mL); PCP Urine VISTA NEGATIVE (< 25 ng/mL); THC Urine VISTA NEGATIVE (< 50 ng/mL); Vista UDS pH Range 5
--- NOTE | 2022-11-11 04:08 | EX.ED.DYSGE1 ---
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 Patient states that today his girlfriend told him that she finds a coworker/other male at work attractive and that she could possibly see yourself being with him. Patient states that this upset him and in order to get back at her he decided to take his prescribed Klonopin and gabapentin pills in an overdose. He states he did simply as a manipulative tactic and that there was no true self-harm behind it. He states that he has been doing well going to treatment appointments on an outpatient basis. However because he made the suicidal gesture with overdose in front of his girlfriend she called police and he was brought in for medical clearance. The patient denies any alcohol or illicit drugs and states the only meds he took were his prescribed meds. He states he did this around 12:30-1 AM. [facility] Medical History Anxiety Bipolar disorder Depression GERD (gastroesophageal reflux disease) Panic attack Severe dextromethorphan use disorder Home Medications gabapentin 100 mg capsule 100 mg PO TID 09/20/22 [History Last Taken Unknown] lorazepam 1 mg tablet (Ativan) 0.5 mg PO DAILY 09/20/22 [History Last Taken Unknown] prazosin 1 mg capsule 1 mg PO QHS 09/20/22 [History Last Taken Unknown] Allergy/AdvReac Type Severity Reaction Status Date / Time No Known Allergies Allergy Verified 11/11/22 02:07 Social History Smoking Status: Current every day smoker tobacco type: cigarettes ROS ROS ED Constitutional Constitutional ED: Denies chills or fever(s) Eyes Eyes: Denies blurry vision or change in vision ENT ENT ED: Denies sore throat Cardiovascular Cardiovascular: Denies chest pain, palpitations or racing heartbeat Respiratory/Chest Respiratory/Chest: Denies cough or dyspnea Gastrointestinal Gastrointestinal: Denies abdominal pain, diarrhea, nausea or vomiting Genitourinary Genitourinary ED: Denies dysuria Musculoskeletal Musculoskeletal: Denies myalgias Integumentary Denies rash Neurologic Neurologic: Denies headache(s) Psychiatric Psychiatric: Denies suicidal ideation or suicidal thoughts Hematologic/Lymphatic Hematologic/Lymphatic: Denies easy bleeding or easy bruising EXAM Physical Exam Const Vital Signs: 11/11/22 02:07 11/11/22 04:37 Temperature 96.7 F L Temperature Source Temporal Pulse Rate 99 Respiratory Rate 16 17 Blood Pressure 119/89 H Blood Pressure Mean 99 Pulse Ox 99 Oxygen Delivery Method Room Air Room Air Positive well nourished and well developed General Appearance ED: well developed HEENT Reports moist mucous membranes HEENT Narrative: No tongue or lip swelling no oral lesions no airway edema or compromise. No secondary changes in the posterior pharynx to suggest infection Eyes PERRL and EOMs intact bilaterally Eyes Narrative: Slight scleral injection noted otherwise pupils are equal reactive to light and accommodation without dilation or miosis Neck supple Neck Narrative: No nuchal rigidity or meningeal signs Chest Wall palpation of chest normal Resp normal respiratory effort and clear to auscultation bilaterally Cardio regular rate and regular rhythm Rate: other Other Details: Radial and carotid pulses are equal and symmetric GI normal to inspection, nondistended, normoactive bowel sounds, non-tender, non-distended and no masses GI Narrative: No bone or guarding or rigidity. No pulsatile mass or fluid wave Auscultation: normoactive bowel sounds Palpation: soft Extremity normal to inspection Neuro oriented x3, CN's II-XII intact bilaterally and no sensory deficits noted Sensorium / Orientation: alert Motor Exam: strength 5/5 throughout Psych Psych Narrative: Patient has a flat affect but denies any homicidal or suicidal ideation Skin no rashes or lesions noted MDM MDM MDM Narrative Medical decision making narrative: Patient presented to the ER awake and alert with normal mental status and however his pupils were not dilated and sluggish to respond to light going against an acute drug overdose with benzodiazepines or gabapentin. However as he stated he did take these pills crisis Poison control was contacted. They recommend washing the patient for 4 hours from the time of ingestion. Patient states he took the pills from 1230 and 1 AM and this time it is now 4-1/2 to 5 hours later and patient remains awake and alert with stable vitals and normal mental status. With concern that patient was lying about this being a manipulative tactic I did elect to perform a basic psychiatric screening exam. Blood work revealed no clinically significant findings. Patient's talk screen was actually negative for benzos going against the report that he did take those in an attempt to overdose. Crisis center was contacted and did evaluate the patient in the ER. They agree that as patient has been reiterating to multiple people that this was a manipulative tactic and not a suicide attempt as well as the fact he is forward thinking with in-place outpatient treatment option that safety plan at home is his best option. I do agree with this conclusion based on his physical exam and moreover the fact that his tox read shows no signs of benzodiazepines going against patient actually ingesting medication prior to arrival. History & Record Review Discussion w/independent historian: EMS personnel and Patient Lab Data Attestation: I reviewed the patient's lab results. Labs: Laboratory Results - last 24 hr 11/11/22 11/11/22 02:40 03:25 WBC 6.4 RBC 4.77 Hgb 14.5 Hct 41.8 MCV 87.6 MCH 30.4 MCHC 34.7 RDW Std Deviation 43.2 RDW Coeff of Gabriel 13.4 Plt Count 225 MPV 8.7 Immature Gran % (Auto) 0.200 Neut % (Auto) 54.6 Lymph % (Auto) 35.2 Potter % (Auto) 7.5 Eos % (Auto) 2.2 Baso % (Auto) 0.3 Absolute Neuts (auto) 3.5 Absolute Lymphs (auto) 2.27 Nucleated RBC % 0 Sodium 143 Potassium 3.3 L Chloride 109 H Carbon Dioxide 28.0 Anion Gap 6 BUN 16 Creatinine 1.38 H Estim Creat Clear Calc 80.44 Est GFR (MDRD) Af Amer 74 Est GFR (MDRD) Non-Af 61 BUN/Creatinine Ratio 11.6 Glucose 112 H Calcium 8.7 Salicylates < 1.7 L Urine Opiates Screen NEGATIVE Urine Methadone Screen NEGATIVE Acetaminophen < 2.0 L Ur Barbiturates Screen NEGATIVE Ur Phencyclidine Scrn NEGATIVE Ur Amphetamines Screen NEGATIVE MDMA (Ecstasy) Screen NEGATIVE U Benzodiazepines Scrn NEGATIVE Urine Cocaine Screen NEGATIVE U Cannabinoids Screen NEGATIVE Ur Drug Screen Comment Ethyl Alcohol < 3.0 Discharge Plan Triage Chief Complaint: Mental Health ED Provider: Sonny Harry Dx/Rx/DC Orders Clinical Impression: Depression, Bipolar disorder, Hx of substance abuse Instructions: Depression: Tips to Help Yourself Prescriptions: No Action prazosin 1 mg capsule 1 mg PO QHS gabapentin 100 mg capsule 100 mg PO TID lorazepam [Ativan] 1 mg tablet 0.5 mg PO DAILY Primary Care Provider: William Castillo Referrals: William Castillo MD [Primary Care Provider] - Activity Restrictions/Additional Instructions: Please continue to follow-up on an outpatient basis with your counselors and psychiatrist and return to the ER should you have any further concerns Disposition Disposition: Home, Self Care
[2022-11-11 04:37] VITALS: RESP 17
[2022-11-11 05:50] VITALS: BP 134/85; PULSE 87; RESP 17; O2SAT 98
== END 2022-11-11 05:51 | disposition home or self-care (01) ==
PROVIDERS: Emergency Provider Emergency Medicine; PCP Family Medicine; Visit Provider Emergency Medicine
DX: F31.9 Bipolar disorder, unspecified (principal); T42.4X2A Poisoning by benzodiazepines, intentional self-harm, initial encounter; T42.6X2A Poisoning by other antiepileptic and sedative-hypnotic drugs, intentional self-harm, initial encounter; F17.210 Nicotine dependence, cigarettes, uncomplicated; F41.9 Anxiety disorder, unspecified; Z87.898 Personal history of other specified conditions; Z04.6 Encounter for general psychiatric examination, requested by authority
CPT/HCPCS: 36415; 80048; 80307; 80329; 82077; 85025; 87811; 93005; 99285; G0480

== ENCOUNTER 2022-11-13 08:30 | Emergency (ER) | payer MEDICARE, MEDICAID, SELFPAY ==
[2022-11-13 08:32] VITALS: BP 134/86; PULSE 107; RESP 18; TEMP 36.6; O2SAT 95; BMI 30.7
--- NOTE | 2022-11-13 08:45 | EDS_ITS ---
HPI History of Present Illness Chief Complaint: Overdose Informant: patient Narrative Narrative: Patient took a high amount of Mucinex to dissociate from reality. Patient was sent over by his counselor who he was seeing this morning. He took the old excess medicine about an hour or so ago and just came from her office. She called EMS. I have not gotten a call from her to know the details if this was related to suicidal thoughts which he denies or just a concern for the high level of Mucinex. Patient is going through a rough time with his girlfriend of 8 years. She has essentially broke up with him. He states she is kind of manipulating him because she knows how to push my buttons. He abraded his left arm but he states that was just to get rid of some of the pain. He was not trying to kill himself. These are very superficial abrasions. He took the Mucinex which is an old habit that he had from the age of 14. The last time he had done this was March 2022. He states he is not suicidal. He does not want to go into psychiatric hospital. He states he has a counselor and high risk case manager. He sees 180 for his drug addictions. He is working on his Exergyn. He has a very positive view of the future. He just took his son out bowling yesterday and he bowled his highest game ever. He states he has lots of reasons to live. He is just going through a rough time. [facility] Medical History Anxiety Bipolar disorder Depression GERD (gastroesophageal reflux disease) Panic attack Severe dextromethorphan use disorder Home Medications gabapentin 100 mg capsule 100 mg PO TID 09/20/22 [History Last Taken Unknown] lorazepam 1 mg tablet (Ativan) 0.5 mg PO DAILY 09/20/22 [History Last Taken Unknown] prazosin 1 mg capsule 1 mg PO QHS 09/20/22 [History Last Taken Unknown] Allergy/AdvReac Type Severity Reaction Status Date / Time No Known Allergies Allergy Verified 11/11/22 02:07 Social History Smoking Status: Current every day smoker tobacco type: cigarettes ROS ROS ED ROS Narrative A complete review of systems was performed and is negative except as documented in the history of present illness. Some specific details below. Constitutional: No recent fevers or chills. EYE: No discharge, he denies blurriness of vision. ENT: No difficulty swallowing. No swelling. No pain. No reflux symptoms. CV: No chest pain or palpitations Respiratory: Reading is easy and unlabored. No coughing. GI: No abdominal pain. No nausea vomiting diarrhea. No blood in stool. : No frequency dysuria or hematuria. Musculoskeletal: No recent trauma. No pains. No swelling. Skin: No rash. Nondiaphoretic. He does have abrasions on his left forearm dorsally. Neuro: No weakness or numbness. Endocrine: No polyuria or polydipsia. Psychiatry: See history of present illness. EXAM Physical Exam Narrative Exam Narrative: CONSTITUTIONAL: Patient is nontoxic in appearance. The patient looks c omfortable. Work of breathing looks normal. HEENT: No notable trauma. Mucous membranes moist. No sinus tenderness. No indication of pain with swallowing. EYES: No conjunctival injection. No proptosis. No obvious nystagmus. NECK:No JVD. No stridor. CARDIOVASCULAR: Regular rate. Regular rhythm. No notable murmur. No JVD. RESPIRATORY: No respiratory distress. Breathing is unlabored. No wheezes. No rhonchi. No rales. No pain with a deep breath. No chest wall tenderness. GASTROINTESTINAL: Not distended. Bowel sounds are normal. No tenderness. No guarding. No rebound. No palpable mass. No bruit is heard. GENITOURINARY: No tenderness over the bladder. No CVA tenderness. MUSCULOSKELETAL: Superficial abrasions on the left dorsal forearm. None needs suturing. NEUROLOGICAL: Patient is alert and appropriate. No focal deficit noted. SKIN: No noted rashes but he does have the abrasions as above. No diaphoresis. PSYCHIATRIC: Patient is calm. Mood is appropriate. Const Vital Signs: 11/13/22 08:32 11/13/22 15:41 Temperature 97.9 F Temperature Source Temporal Pulse Rate 107 H 101 H Respiratory Rate 18 20 H Blood Pressure 134/86 H 151/81 H Blood Pressure Mean 102 104 Pulse Ox 95 95 Oxygen Delivery Method Room Air Room Air MDM MDM MDM Narrative Medical decision making narrative: Patient CBC shows normal limits. Patient's electrolytes show mild elevation of creatinine which is really near where he has been before. He is able to drink fluids and this should self correct. No serum alcohol is less than 3. Patient's urine toxicology shows cannabinoids. We obtained further history. Evidently his counselor states that this is how the patient progresses to suicidality. He does not say he is suicidal but he starts hurting himself and taking drugs. This is very concerning as he is worsening with outpatient therapy. He was also overheard telling his mother that she does not care that her son (meaning him) is suicidal and wants to . With this further information he will be pink slipped. We are working on placement. As he will be transferred, we have now ordered EKG and COVID Lab Data Attestation: I reviewed the patient's lab results. Labs: Laboratory Results - last 24 hr 11/13/22 11/13/22 09:40 11:12 WBC 8.6 RBC 4.84 Hgb 14.8 Hct 42.4 MCV 87.6 MCH 30.6 MCHC 34.9 RDW Std Deviation 43.1 RDW Coeff of Gabriel 13.4 Plt Count 213 MPV 8.6 Immature Gran % (Auto) 0.100 Neut % (Auto) 73.1 H Lymph % (Auto) 19.7 [place] % (Auto) 5.7 Eos % (Auto) 1.2 Baso % (Auto) 0.2 Absolute Neuts (auto) 6.3 Absolute Lymphs (auto) 1.70 Nucleated RBC % 0 Sodium 141 Potassium 3.6 Chloride 109 H Carbon Dioxide 26.0 Anion Gap 6 BUN 16 Creatinine 1.49 H Estim Creat Clear Calc 74.50 Est GFR (MDRD) Af Amer 68 Est GFR (MDRD) Non-Af 56 L BUN/Creatinine Ratio 10.7 Glucose 101 Calcium 9.1 Urine Opiates Screen NEGATIVE Urine Methadone Screen NEGATIVE Ur Barbiturates Screen NEGATIVE Ur Phencyclidine Scrn NEGATIVE Ur Amphetamines Screen NEGATIVE MDMA (Ecstasy) Screen NEGATIVE U Benzodiazepines Scrn NEGATIVE Urine Cocaine Screen NEGATIVE U Cannabinoids Screen POSITIVE H Ur Drug Screen Comment Ethyl Alcohol < 3.0 Discharge Plan Triage Chief Complaint: Overdose ED Provider: Andres Gonzalez Dx/Rx/DC Orders Clinical Impression: Dextromethorphan overdose, Injury, self-inflicted, Feeling suicidal Prescriptions: No Action prazosin 1 mg capsule 1 mg PO QHS gabapentin 100 mg capsule 100 mg PO TID lorazepam [Ativan] 1 mg tablet 0.5 mg PO DAILY Primary Care Provider: William Castillo Referrals: William Castillo MD [Primary Care Provider] - Disposition Disposition: Psychiatric Hospital or Unit
--- NOTE | 2022-11-13 08:55 | ED.RN ---
DR SALEH SAID NO SITTER NEEDED AT THIS TIME
[2022-11-13] MEDS: LORazepam 1 MG Tablet 2 MG PO (09:56)
[2022-11-13 10:03] LABS: Absolute Neutrophil Count 6.3 X10^3/uL (2.0-7.7); Basophil# 0.02 X10^3/uL; Basophil% 0.2 % (0-1); Eosinophils% 1.2 % (0-5); Hematocrit 42.4 % (40-54); Hemoglobin 14.8 g/dL (13.0-16.5); Lymphocyte % 19.7 % (19-41); Mean Corp Hgb Conc 34.9 g/dL (32-36); Mean Corpuscular Hgb 30.6 pg (27.0-32.0); Mean Corpuscular Volume 87.6 fL (80-94); Mean Platelet Vol. 8.6 fl (6.2-12.0); Monocyte# 0.49 X10^3/uL; Monocyte% 5.7 % (0-10); NRBC Flagged by Analyzer 0 % (0-5); Neutrophil # 6.32 X10^3/uL (2.7-7.7); Neutrophil % 73.1 % (47-70); Platelet Count 213 K/mm3 (150-450); RBC Distribution Width CV 13.4 % (11.6-14.6); RBC Distribution Width SD 43.1 fl (35.1-43.9); Red Blood Count 4.84 M/mm3 (4.6-6.2); White Blood Count 8.6 K/mm3 (4.4-11.0)
[2022-11-13 10:20] LABS: Anion Gap 6 (5-15); BUN 16 mg/dL (7-18); BUN/Creat Ratio 10.7 RATIO (10-20); Calcium,Total 9.1 mg/dL (8.5-10.1); Chloride 109 mmol/L (98-107); Creatinine, Serum 1.49 mg/dL (0.70-1.30); EST Glomerular Filtration Rate 56 mL/min (>60); Est Glom Filt Rate - Afr Amer 68 mL/min (>60); Glucose 101 mg/dL (74-106); Potassium 3.6 mmol/L (3.5-5.1); Sodium Level 141 mmol/L (136-145)
[2022-11-13 10:24] LABS: Alcohol, Blood (Medical)-Serum < 3.0 mg/dL
[2022-11-13 11:32] LABS: Amphetamine Urine VISTA NEGATIVE (<1000 ng/mL); Barbiturate Urine VISTA NEGATIVE (< 200 ng/mL); Benzodiazepine Urine VISTA NEGATIVE (< 200 ng/mL); Cocaine Urine VISTA NEGATIVE (< 300 ng/mL); Ecstacy Urine VISTA NEGATIVE (< 500 ng/mL); Methadone Urine VISTA NEGATIVE (< 300 ng/mL); PCP Urine VISTA NEGATIVE (< 25 ng/mL); THC Urine VISTA POSITIVE (< 50 ng/mL); Vista UDS pH Range 5
--- NOTE | 2022-11-13 15:13 | EKG12_ITS ---
Test Reason : PLACEMENT Blood Pressure : / mmHG Vent. Rate : 079 BPM Atrial Rate : 079 BPM P-R Int : 122 ms QRS Dur : 090 ms QT Int : 368 ms P-R-T Axes : 024 058 041 degrees QTc Int : 421 ms Normal sinus rhythm with sinus arrhythmia Normal ECG Confirmed by BHANU ALCANTARA, LENI ([id number]), videotape editor PACO MANZANO ([id number]) on 11/16/2022 8:42:38 AM Referred By: Confirmed By:LEANDRO DRUMMOND MD
[2022-11-13 15:41] VITALS: BP 151/81; PULSE 101; RESP 20; O2SAT 95
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
--- NOTE | 2022-11-13 17:21 | CM.ED ---
Social Work CHRISSIE informed by fish hatchery manager patient was requesting to speak with SW. SW met with patient per his request and reviewed current safety concerns and purpose for pink slip. SW attempted to provided emotional support, however, patient continued to talk over SW. Patient then stated he was upset he was unable to shit without his sitter in the restroom and wanted to talk to someone smart enough to allow him to have privacy. CHRISSIE informed patient the sitter is apart of [facility] safety policy, however, the sitter does not have to be standing in the restroom with patient. SW reviewed concerns with fish hatchery manager and sitter, concerns addressed as the sitter is able to remain outside of the restroom as long as she is able to see him. Patient informed of conversation and patient's voiced understanding. CHRISSIE contacted by [facility] cloth printing utility worker Chasidy explaining the patient has contacted Crisis due to being frustrated with pending placement. Chasidy explained she provided emotional support and reviewed concerns as well as patient being initially pink slipped to [facility] by Liss MAY. Patient requested Chasidy inform SW he does not want a referral to [facility] due to his recent negative experience at their facility. Chasidy explained she told patient she would inform SW, however, placement would be based on which facility has available beds and can accept patient. Chasidy further informed patient can be encouraged to be cooperative by reminding him of his son's upcoming birthday as patient wants to be home to celebrate it. CHRISSIE contacted [facility] to inquire about bed availability, beds available. CHRISSIE faxed referral. CHRISSIE also faxed referral to [facility] as they have available beds. Plan: referrals pending at and [facility] [place] Block
--- NOTE | 2022-11-13 18:12 | ED.RN ---
Counseling center called as the medications pt. states he takes does not currently match our records. Pt. states he gets his medications prescribed by a Javi Bennett at the counseling center. Pt. states he takes Gabapentin 300 mg TID, prazosin 2mg PO HS, and Klonopin 0.5mg BID PRN.
--- NOTE | 2022-11-13 18:38 | CM.ED ---
Social Work Patient has been accepted to [facility] by MD Tan, [address], [id number] [phone]. [place] slip faxed to . SW updated care team, cracking unit operator to arrange transportation. SW updated patient of acceptance to near [place]. Patient voiced understanding and inquired about when he would be leaving. SW explained cracking unit operator would arrange transportation and [facility] staff would inform him of the ETA. Plan: [facility], [place]
[2022-11-13 18:58] VITALS: BP 125/87; PULSE 83; RESP 16; TEMP 37.2; O2SAT 96
--- NOTE | 2022-11-13 18:58 | ED.RN ---
report called to DEVON Haney at [facility]
[2022-11-13] MEDS: clonazePAM 0.5 MG Tablet PO (19:50)
--- NOTE | 2022-11-13 21:17 | ED.RN ---
PT RESTING QUIETLY IN BED, NO SIGNS OF DISTRESS. PT COOPERATIVE AT THIS TIME. MEDICATED WITH HOME MED FOR ANXIETY
[2022-11-13 21:18] VITALS: BP 131/79; PULSE 87; RESP 16; O2SAT 97
== END 2022-11-13 23:16 ==
PROVIDERS: Emergency Provider Emergency Medicine; PCP Family Medicine; Visit Provider Emergency Medicine
DX: T48.3X2A Poisoning by antitussives, intentional self-harm, initial encounter (principal); X83.8XXA Intentional self-harm by other specified means, initial encounter; S50.812A Abrasion of left forearm, initial encounter; F17.210 Nicotine dependence, cigarettes, uncomplicated; Z63.0 Problems in relationship with spouse or partner; Z91.51 Personal history of suicidal behavior
CPT/HCPCS: 80048; 80307; 82077; 85025; 87428; 93005; 99285

== ENCOUNTER 2022-11-23 20:14 | Emergency (ER) | payer MEDICARE, MEDICAID, SELFPAY ==
[2022-11-23 20:17] VITALS: BP 101/63; PULSE 85; RESP 16; TEMP 36.2; O2SAT 97
== END 2022-11-23 20:45 | disposition left against medical advice (07) ==
LOC: ED 21:00
PROVIDERS: PCP Family Medicine
DX: Z53.21 Procedure and treatment not carried out due to patient leaving prior to being seen by health care provider (principal)
CPT/HCPCS: 99282

== ENCOUNTER 2022-11-24 06:21 | Emergency (ER) | payer MEDICARE, MEDICAID, SELFPAY ==
[2022-11-24 06:21] VITALS: BP 109/82; PULSE 89; RESP 16; TEMP 36.3; O2SAT 96; BMI 31.7
--- NOTE | 2022-11-24 06:44 | EDS_ITS ---
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 He told police that he took 7590-2616 of them. He is prescribed the medication. He told police and myself that he was not attempting to kill himself. He states that he was trying to numb himself due to learning recently that his , the woman of my dreams, does not want me with her anymore and wants a divorce and is probably cheating on me with other people. He was on the phone with crisis earlier, he was telling crisis that he did not want to live anymore. This is why police were called. Apparently, he was here at the emergency department earlier after he initially took a lot of gabapentin, but he eloped prior to being seen clinically, and apparently was found on the roof of the emergency department after he had apparently scaled the foster and climbed up there by himself. He denies having any injury from that. [facility] Medical History Anxiety Bipolar disorder Depression GERD (gastroesophageal reflux disease) Panic attack Severe dextromethorphan use disorder Home Medications gabapentin 100 mg capsule 100 mg PO TID 09/20/22 [History Last Taken Unknown] prazosin 1 mg capsule 1 mg PO QHS 09/20/22 [History Last Taken Unknown] Allergy/AdvReac Type Severity Reaction Status Date / Time No Known Allergies Allergy Verified 11/23/22 20:17 Social History Smoking Status: Current every day smoker tobacco type: cigarettes ROS ROS ED Constitutional Constitutional ED: Denies chills or fever(s) Eyes Eyes: Denies change in vision or diplopia ENT ENT ED: Denies rhinorrhea or sore throat Cardiovascular Cardiovascular: Denies chest pain or palpitations Respiratory/Chest Respiratory/Chest: Denies cough or dyspnea Gastrointestinal Gastrointestinal: Denies abdominal pain, diarrhea, nausea or vomiting Genitourinary Genitourinary ED: Denies dysuria or hematuria Musculoskeletal Musculoskeletal: Denies back pain or neck pain Integumentary Denies abscess or rash Neurologic Neurologic: Denies headache(s), paresthesias or weakness Psychiatric Psychiatric: Reports depression and suicidal thoughts; Denies homicidal ideation or suicidal ideation EXAM Physical Exam Const Vital Signs: 11/24/22 06:21 Temperature 97.3 F L Temperature Source Oral Pulse Rate 89 Respiratory Rate 16 Blood Pressure 109/82 H Blood Pressure Mean 91 Pulse Ox 96 Oxygen Delivery Method Room Air Positive well nourished and well developed Constitutional Narrative: Patient in room actively vaping from his vape pen, which was promptly confiscated from him. I am taking advantage of my last opportunity to feel goo d before everything is taken away from me. General Appearance ED: well developed and NAD HEENT Reports moist mucous membranes normocephalic and atraumatic Eyes PERRL and EOMs intact bilaterally General Eye ED: Negative for scleral icterus Neck no lymphadenopathy and supple Resp normal respiratory effort and clear to auscultation bilaterally Cardio no murmurs Rate: regular rate Rhythm: regular rhythm GI non-tender and non-distended Auscultation: normoactive bowel sounds Palpation: soft Back/Spine no CVA tenderness and normal ROM Extremity normal to inspection General Extremety ED: Negative for edema General Extremity: Negative for edema Neuro oriented x3, CN's II-XII intact bilaterally, no sensory deficits noted and gait normal Sensorium / Orientation: alert Motor Exam: strength 5/5 throughout Psych mental status grossly normal, thought process normal, cooperative, activity/motor behavior normal and denies homicidal ideation Mood & Affect: depressed Thought Content: normal thought content Skin Lesions: no lesions Rashes: no rashes MDM MDM MDM Narrative Medical decision making narrative: Alcohol negative his other labs are noted and unremarkable as well. Coingestants are pending, assuming they returned negative he is medically cleared from this nonlife-threatening ingestion of an unknown amount of gabapentin. Will talk with crisis for further evaluation and likely disposition to psychiatric hospital. Lab Data Attestation: I reviewed the patient's lab results. Labs: Laboratory Results - last 24 hr 11/24/22 06:45 WBC 6.4 RBC 4.65 Hgb 14.0 Hct 41.4 MCV 89.0 MCH 30.1 MCHC 33.8 RDW Std Deviation 43.0 RDW Coeff of Gabriel 13.2 Plt Count 277 MPV 8.2 Immature Gran % (Auto) 0.200 Neut % (Auto) 48.1 Lymph % (Auto) 40.7 [place] % (Auto) 7.2 Eos % (Auto) 3.3 Baso % (Auto) 0.5 Absolute Neuts (auto) 3.1 Absolute Lymphs (auto) 2.59 Nucleated RBC % 0 Sodium 142 Potassium 4.1 Chloride 112 H Carbon Dioxide 26.0 Anion Gap 4 L BUN 21 H Creatinine 1.35 H Estim Creat Clear Calc 82.23 Est GFR (MDRD) Af Amer 76 Est GFR (MDRD) Non-Af 63 BUN/Creatinine Ratio 15.6 Glucose 97 Calcium 8.3 L Total Bilirubin 0.20 AST 35 ALT 37 Alkaline Phosphatase 64 Total Protein 6.4 Albumin 3.4 Globulin 3.0 Albumin/Globulin Ratio 1.1 Ethyl Alcohol < 3.0 Rhythm Strip Rhythm Strip: Sinus Rhythm Rate: 85 Ectopy: None Management Discussion w/another healthcare provider: Behavioral health Discharge Plan Triage Chief Complaint: Overdose ED Provider: Fito Nunn Dx/Rx/DC Orders Clinical Impression: Suicide gesture, Suicidal thoughts, Intentional overdose of gabapentin Prescriptions: No Action prazosin 1 mg capsule 1 mg PO QHS gabapentin 100 mg capsule 100 mg PO TID Primary Care Provider: William Castillo Referrals: William Castillo MD [Primary Care Provider] - Disposition Disposition: Psychiatric Hospital or Unit
[2022-11-24 06:51] LABS: Absolute Lymphocyte Count 2.59 X10^3/uL (0.83-4.51); Absolute Neutrophil Count 3.1 X10^3/uL (2.0-7.7); Basophil# 0.03 X10^3/uL; Basophil% 0.5 % (0-1); Eosinophil# 0.21 X10^3/uL; Eosinophils% 3.3 % (0-5); Hematocrit 41.4 % (40-54); Lymphocyte # 2.59 X10^3/ul (0.83-4.51); Lymphocyte % 40.7 % (19-41); Mean Corp Hgb Conc 33.8 g/dL (32-36); Mean Corpuscular Hgb 30.1 pg (27.0-32.0); Mean Platelet Vol. 8.2 fl (6.2-12.0); Monocyte# 0.46 X10^3/uL; Monocyte% 7.2 % (0-10); NRBC Flagged by Analyzer 0 % (0-5); Neutrophil # 3.07 X10^3/uL (2.7-7.7); Neutrophil % 48.1 % (47-70); Platelet Count 277 K/mm3 (150-450); RBC Distribution Width CV 13.2 % (11.6-14.6); Red Blood Count 4.65 M/mm3 (4.6-6.2); White Blood Count 6.4 K/mm3 (4.4-11.0)
[2022-11-24 07:08] LABS: ALB/GLOB Ratio 1.1 RATIO (0.9-2.4); AST(SGOT) 35 U/L (15-37); Alanine Aminotransfer ALT/SGPT 37 U/L (16-61); Albumin, Serum 3.4 g/dL (3.2-5.0); Alkaline Phosphatase 64 U/L (45-117); Anion Gap 4 (5-15); BUN 21 mg/dL (7-18); BUN/Creat Ratio 15.6 RATIO (10-20); Calcium,Total 8.3 mg/dL (8.5-10.1); Chloride 112 mmol/L (98-107); Creatinine, Serum 1.35 mg/dL (0.70-1.30); EST Glomerular Filtration Rate 63 mL/min (>60); Est Glom Filt Rate - Afr Amer 76 mL/min (>60); Estimated Creatinine Clearance 82.23 ml/min; Glucose 97 mg/dL (74-106); Potassium 4.1 mmol/L (3.5-5.1); Protein, Total 6.4 g/dL (6.4-8.2); Sodium Level 142 mmol/L (136-145)
[2022-11-24 07:40] LABS: Alcohol, Blood (Medical)-Serum < 3.0 mg/dL
[2022-11-24 07:55] LABS: Acetaminophen (Tylenol) Level < 2.0 ug/mL (10.0-30.0); Salicylate < 1.7 mg/dL (2.8-20.0)
--- NOTE | 2022-11-24 08:03 | NURSING ---
CALLED CRISIS. WILL FAX CHART
--- NOTE | 2022-11-24 08:13 | NURSING ---
CALLED [facility]. FAXED CHART TO CRISIS
--- NOTE | 2022-11-24 09:02 | NURSING ---
OPHELIA, [facility], COMING TO SEE PATIENT
[2022-11-24 09:45] VITALS: BP 102/69; PULSE 69; RESP 14; O2SAT 98
[2022-11-24 10:19] VITALS: BP 108/74; PULSE 69; RESP 16; O2SAT 99
--- NOTE | 2022-11-24 10:46 | NURSING ---
PT STRAIGHT CATHED FOR UA SAMPLE
[2022-11-24 11:13] LABS: Amphetamine Urine VISTA NEGATIVE (<1000 ng/mL); Barbiturate Urine VISTA NEGATIVE (< 200 ng/mL); Benzodiazepine Urine VISTA NEGATIVE (< 200 ng/mL); Cocaine Urine VISTA NEGATIVE (< 300 ng/mL); Ecstacy Urine VISTA NEGATIVE (< 500 ng/mL); Methadone Urine VISTA NEGATIVE (< 300 ng/mL); PCP Urine VISTA NEGATIVE (< 25 ng/mL); THC Urine VISTA POSITIVE (< 50 ng/mL); Vista UDS pH Range 5
--- NOTE | 2022-11-24 11:33 | CM.ED ---
Social Work SW contacted [facility] to discuss discharge plan, Crisis staff report plan to send referral to [facility]. SW to fax chart once UR are in. SW faxed patient's chart and updated care team regarding referrals. Plan: referrals pending at [facility], DOM[place]ILA
--- NOTE | 2022-11-24 12:28 | CM.ED ---
Social Work SW faxed EKG to [facility] per their request to be included in patient's referral packet. Plan: referrals to [facility], DOM[place]
--- NOTE | 2022-11-24 14:08 | NURSING ---
ACCEPTED AT [place] [id number] NURSE TO NURSE [phone] YEE
--- NOTE | 2022-11-24 14:13 | CM.ED ---
Social Work CHRISSIE informed by [facility] Crisis patient was accepted to [facility] by MD Dean, [place] [facility] [address], [id number]. SW faxed pink slip to [facility]. SW met with patient and provided update regarding acceptance. Patient inquiring about smoking policy. SW contacted [facility] to inquire about their smoking policy, [facility] is a nonsmoking campus but can provide nicotine patches. SW updated patient. Patient states he took an excessive amount of pills to get high and not OD and does not feel he should be transported to a psychiatric hospital. CHRISSIE explained [facility] Crisis worked with ED MD on recommendations and SW was just assisting with d/c planning. SW provided emotional support and reminded patient of process after being pink slipped. Patient requesting to speak with SW, or medical staff. SW reminded patient her role as SW. Patient states he wants to talk with his nurse. SW updated care team. Plan: [facility] Marla ALFORD, DOMITILA
--- NOTE | 2022-11-24 14:23 | NURSING ---
CALLED [facility], ETA IS 4 HRS
[2022-11-24 14:52] VITALS: BP 107/70; PULSE 78; RESP 16; O2SAT 96
--- NOTE | 2022-11-24 15:03 | CM.ED ---
Social Work SW met with patient per his request. Patient continues to deny SI and states he should be able to participate in rehab rather than go to a psychiatric hospital. SW attempted to provide emotional support and reviewed current safety concerns. SW then reviewed average length of stay. Patient counts the days to Wednesday and then asks, so if I leave Wednesday I can keep my job?. SW explained that is not a decision SW would be involved in as this is outside of [facility], but encouraged patient to be cooperative at [facility] as that assists with discharge. Patient voiced understanding and inquires about talking with ED MD. SW updated MD Enriquez of patient's request. CHRISSIE contacted by [facility] Crisis staff, Michelle, explaining the patient has called in and is requesting to be reassessed. Michelle reports she informed patient a reassessment today would not be possible and reviewed safety concerns. CHRISSIE also reviewed emotional support previously provided to patient. [facility] Crisis to contact [facility] staff if patient continues to call with concerns. Plan: [facility] Sherwood MSW, DOMITILA
--- NOTE | 2022-11-24 16:55 | ED.RN ---
Attempted to call report 3 times without reaching anybody. [phone] and [phone]
== END 2022-11-24 17:18 ==
PROVIDERS: Emergency Provider Emergency Medicine; PCP Family Medicine; Visit Provider Emergency Medicine
DX: T42.6X2A Poisoning by other antiepileptic and sedative-hypnotic drugs, intentional self-harm, initial encounter (principal); R45.851 Suicidal ideations; F17.210 Nicotine dependence, cigarettes, uncomplicated; F32.A Depression, unspecified
CPT/HCPCS: 80053; 80307; 80329; 82077; 85025; 87811; 93005; 99285; G0480

== ENCOUNTER 2022-12-07 07:16 | Emergency (ER) | payer MEDICARE, MEDICAID, SELFPAY ==
[2022-12-07 07:17] VITALS: BP 114/81; PULSE 120; RESP 18; TEMP 36.2; O2SAT 95; BMI 31.1
[2022-12-07] MEDS: diazePAM 5 MG Tablet PO (07:39)
--- NOTE | 2022-12-07 07:39 | EDS_ITS ---
HPI History of Present Illness Chief Complaint: General Illness Detail of Chief Complaint: Please read HPI narrative Informant: patient Onset/Context/Timing Onset: - (Possibly the past 12 to 24 hours) Context: Sudden Onset Timing: Continuous Quality: Jitteriness, palpitations, nervousness Location: Not applicable Current Severity: Moderate Maximum Severity: Moderate Worsened by: Possibly due to diazepam withdrawal Relieved by: Nothing Associated Symptoms Associated Symptoms: Please read HPI narrative Narrative Narrative: Patient presents because he reports he was not given medicine from the last facility he was at which was [facility]. He states he is on gabapentin, prazosin and Klonopin. He states that the medicine he was prescribed from [facility] was discontinued by the counselor at the counseling center and he was given prescription for gabapentin, prazosin and Klonopin. He asked only for a week supply since he recently overdosed on gabapentin. Patient is very difficult to follow. His thought process is tangential and there is loose association. He states he was admitted November [address] [place] [address] and discharged on December 02. He states after discharge he saw his counselor and he discontinued his meds and placed him on week supply of gabapentin, prazosin and Klonopin. Patient states his last dose of medication was Wednesday. This is much shorter than 7 days. He is scheduled to see his counselor tomorrow December 08. Presently patient denies suicidal homicidal thoughts. Patient states he needs his medicine. Patient states he feels anxious, he is unable to sit still and is fidgety. Patient was seen for dextromethorphan overdose/abuse on November 13. He was also seen on November 24 for gabapentin overdose. Dispositions for both visit was a psychiatric facility. Patient is uncertain what medicines he was prescribed from [facility]. He is emphatic that they were discontinued by his therapist. He presents now because of feeling anxious and wants medicine for his anxiety. Prior similar symptoms: No Recent Illness/Hospitalization: Yes [facility] Medical History Anxiety Bipolar disorder Depression GERD (gastroesophageal reflux disease) Panic attack Severe dextromethorphan use disorder Home Medications gabapentin 100 mg capsule 100 mg PO TID 09/20/22 [History Last Taken Unknown] prazosin 1 mg capsule 2 mg PO QHS 09/20/22 [History Last Taken Unknown] clonazepam 0.5 mg tablet 0.5 mg PO DAILY 12/07/22 [History Last Taken Unknown] Allergy/AdvReac Type Severity Reaction Status Date / Time No Known Allergies Allergy Verified 11/23/22 20:17 Social History (Updated 12/07/22 @ 07:[address] Monty Mendoza MD) household members: none and other details: Patient reports he has children and recently went degeneration so he could Smoking Status: Current every day smoker tobacco type: cigarettes ROS ROS ED Constitutional Constitutional ED: Denies chills, fever(s), subjective, sweats or weight loss Eyes Eyes: Denies blurry vision, change in vision or diplopia ENT ENT ED: Denies ear pain, rhinorrhea or sore throat Cardiovascular Cardiovascular: Denies chest pain, orthopnea, palpitations, paroxysmal nocturnal dyspnea or racing heartbeat Respiratory/Chest Respiratory/Chest: Denies cough, dyspnea, dyspnea on exertion, orthopnea or paroxysmal nocturnal dyspnea Gastrointestinal Gastrointestinal: Denies abdominal pain, constipation, diarrhea, melena, nausea or vomiting Genitourinary Genitourinary ED: Denies dysuria, hematuria or urinary frequency Musculoskeletal Musculoskeletal: Denies arthralgias, back pain, myalgias or neck pain Integumentary Denies rash Neurologic Neurologic: Denies headache(s), paresthesias or weakness Psychiatric Psychiatric: Reports anxiety; Denies depression or suicidal ideation Hematologic/Lymphatic Hematologic/Lymphatic: Reports systems reviewed and no addt'l complaints, except as documented EXAM Physical Exam Const Vital Signs: 12/07/22 07:17 12/07/22 07:24 12/07/22 07:57 Temperature 97.1 F L Temperature Source Temporal Pulse Rate 120 H 83 Respiratory Rate 18 Respiratory Pattern Normal Blood Pressure 114/81 H Blood Pressure Mean 92 Pulse Ox 95 Oxygen Delivery Method Room Air Positive well nourished and well developed Constitutional Narrative: There is minimal eye contact. Patient is fidgety. Patient does not appear toxic. General Appearance ED: well developed and NAD; Negative for pallor HEENT Reports moist mucous membranes HEENT Narrative: Head is normocephalic and atraumatic. Ears are normal. TMs are normal. Nares patent. Posterior pharynx out erythema or exudate. Eyes PERRL and EOMs intact bilaterally Eyes Narrative: There is no night segments. General Eye ED: Negative for pale conjunctiva or scleral icterus Neck no lymphadenopathy, supple and no JVD Resp normal respiratory effort and clear to auscultation bilaterally Cardio regular rhythm, S1 normal heart sound, S2 normal heart sound and no murmurs Rate: tachycardic GI normal to inspection, nondistended, normoactive bowel sounds, non-tender, non- distended and no masses; Negative for hepatosplenomegaly Back/Spine no CVA tenderness Extremity normal to inspection General Extremety ED: Negative for edema or tenderness General Extremity: Negative for edema Neuro oriented x3, CN's II-XII intact bilaterally and no sensory deficits noted Neuro Narrative: Patient has hyperreflexia bicep, brachialis, patella and ankle reflex. There is 3-6 beats of clonus at the ankles. Sensorium / Orientation: alert Psych Psych Narrative: Patient with a flat affect. Psychomotor skills are slightly increased. Patient is fidgety. There is minimal eye contact. Patient's thought process has loose association and at times is tangential. Patient was asked numerous times to explain himself since it was difficult to follow. He did become agitated because of the repeat questioning. He was informed that purpose is to understand so that I am able to help him. This alleviated his agitation. Skin no rashes or lesions noted, no wounds and skin turgor normal General Skin Exam: Negative for jaundice or pallor MDM MDM MDM Narrative Medical decision making narrative: Surgery was asked to call the counseling center to verify patient's history. He consented to call back. They verified that he only got a week supply of gabapentin, Presalin and Klonopin. He does have an appointment to see his counselor tomorrow. Since patient has symptoms of withdrawal he was given 5 mg of Valium p.o. I was informed by nurse he felt much better after taking the medicine. Will observe since diazepam with drawl is potentially life- threatening. Treatment and Re-Evaluation :: Patient was reassessed at 0825. Patient is no longer fidgety. He is no longer tachycardic. He was informed that the Valium has a half-life of 197 hours. This will hold him over until he sees his therapist tomorrow. Discharge Plan Triage Chief Complaint: General Illness ED Provider: Monty Mendoza Dx/Rx/DC Orders Clinical Impression: Medication addiction, episodic, Anxiety, Sinus tachycardia seen on equipment monitor phototypesetting, Benzodiazepine withdrawal without complication, Medication care plan discussed with patient Instructions: ED Benzodiazepine Withdrawal Prescriptions: No Action prazosin 1 mg capsule 2 mg PO QHS gabapentin 100 mg capsule 100 mg PO TID clonazepam 0.5 mg tablet 0.5 mg PO DAILY Primary Care Provider: William Castillo Referrals: Counseling,Center [Group of Physicians] - Keep Suri appointment William Castillo MD [Primary Care Provider] - Disposition Disposition: Home, Self Care
--- NOTE | 2022-12-07 07:52 | ED.RN ---
Josue Clifford at the Crisis center. Pt is prescribed Gabapentin 300mg/TID, Prazosin 2mg/daily, and Clonopin 0.5mg/daily. He is only prescribed 7 days worth of medications at a time due to his misuse. Pt. last picked up his medications on 12/03/22 but states he has no more of his medications. Dr. Mendoza notified.
[2022-12-07 07:57] VITALS: PULSE 83
== END 2022-12-07 08:29 | disposition home or self-care (01) ==
PROVIDERS: Emergency Provider Emergency Medicine; PCP Family Medicine; Visit Provider Emergency Medicine
DX: F13.139 Sedative, hypnotic or anxiolytic abuse with withdrawal, unspecified (principal); F41.9 Anxiety disorder, unspecified; F17.210 Nicotine dependence, cigarettes, uncomplicated; R00.0 Tachycardia, unspecified
CPT/HCPCS: 99284

== ENCOUNTER 2023-06-01 14:05 | Emergency (ER) | payer MEDICARE, MEDICAID, SELFPAY ==
[2023-06-01 14:06] VITALS: BP 119/95; PULSE 116; RESP 18; TEMP 36.4; O2SAT 96; BMI 28.3
--- NOTE | 2023-06-01 14:24 | EDS_ITS ---
HPI History of Present Illness Chief Complaint: Substance Abuse Detail of Chief Complaint: Requesting detox from methamphetamines Informant: patient Narrative Narrative: Patient presents to the emergency department requesting detox from met maynorphetamines. Patient states that somebody in AA told him that he should come to the hospital here to get admitted for this. Patient denies opiate use or alcohol abuse. He smokes marijuana occasionally and also smokes cigarettes. He last used earlier today. Patient states has been using steadily for the last month and not every day. Normally he smokes the meth and does not inject. [facility] Medical History Anxiety Bipolar disorder Depression GERD (gastroesophageal reflux disease) Panic attack Severe dextromethorphan use disorder Home Medications gabapentin 100 mg capsule 100 mg PO TID 09/20/22 [History Last Taken Unknown] prazosin 1 mg capsule 2 mg PO QHS 09/20/22 [History Last Taken Unknown] clonazepam 0.5 mg tablet 0.5 mg PO DAILY 12/07/22 [History Last Taken Unknown] Allergy/AdvReac Type Severity Reaction Status Date / Time No Known Allergies Allergy Verified 06/01/23 14:06 Social History (Updated 12/07/22 @ 07:[address] Monty Mendoza MD) household members: none and other details: Patient reports he has children and recently went degeneration so he could Smoking Status: Current every day smoker tobacco type: cigarettes ROS ROS ED Review of Systems ROS Unobtainable: other Constitutional Constitutional ED: Reports lethargy; Denies chills, fever(s), sweats or weight loss Eyes Eyes: Denies blurry vision, change in vision or diplopia ENT ENT ED: Denies rhinorrhea or sore throat Cardiovascular Cardiovascular: Denies chest pain, orthopnea or racing heartbeat Respiratory/Chest Respiratory/Chest: Denies cough, dyspnea, dyspnea on exertion, orthopnea or sputum Gastrointestinal Gastrointestinal: Denies abdominal pain, diarrhea, nausea or vomiting Genitourinary Genitourinary ED: Denies dysuria, hematuria or urinary frequency Musculoskeletal Musculoskeletal: Denies arthralgias, back pain, myalgias or neck pain Integumentary Denies abscess, Abrasions or rash Neurologic Neurologic: Denies headache(s) or weakness Psychiatric Psychiatric: Denies anxiety, depression or suicidal thoughts Endocrine Endocrinology: Denies polydipsia, polyphagia or polyuria Hematologic/Lymphatic Hematologic/Lymphatic: Denies easy bleeding, easy bruising or lymphadenopathy Allergic/Immunologic Allergic/Immunologic ED: Denies mouth swelling, tongue swelling or urticaria EXAM Physical Exam Const Vital Signs: 06/01/23 14:06 Temperature 97.5 F L Temperature Source Temporal Pulse Rate 116 H Respiratory Rate 18 Blood Pressure 119/95 H Blood Pressure Mean 103 Pulse Ox 96 Oxygen Delivery Method Room Air Positive well nourished and well developed General Appearance ED: well developed and NAD HEENT Reports TM's clear and moist mucous membranes normocephalic and atraumatic; Negative for trauma or tenderness Tympanic Membrane ED: Yes TM's clear Eyes PERRL and EOMs intact bilaterally General Eye ED: Negative for pale conjunctiva or scleral icterus Neck no lymphadenopathy, supple and no JVD General: Negative for tenderness Chest Wall inspection of chest normal and palpation of chest normal Chest: Negative for tenderness Resp normal respiratory effort and clear to auscultation bilaterally Effort and Inspection: Negative for respiratory distress or pain with movement Auscultation: Negative for rhonchi, wheezes or diminished lung sounds Cardio regular rate, regular rhythm, S1 normal heart sound, S2 normal heart sound and no murmurs Peripheral Pulses: pulses 2+ throughout GI normal to inspection, nondistended, normoactive bowel sounds, soft to palpation, non-tender, non-distended and no masses Back/Spine no CVA tenderness and no thoracic nor lumbar tenderness Extremity normal to inspection General Extremety ED: Negative for edema General Extremity: Negative for edema Neuro oriented x3, CN's II-XII intact bilaterally, no sensory deficits noted and gait normal Sensorium / Orientation: awake, alert, oriented to person, oriented to place and oriented to time Motor Exam: strength 5/5 throughout and strength abnormal Psych mental status grossly normal Skin no rashes or lesions noted and no wounds MDM MDM MDM Narrative Medical decision making narrative: Patient presents requesting detox from methamphetamines. I did explain to the patient that we do not admit for detox for amphetamines. Refer him back to [facility]. Clinically he looks well and has no other significant complaints. Discharge Plan Triage Chief Complaint: Substance Abuse ED Provider: Bev Mcgarry Dx/Rx/DC Orders Clinical Impression: Illicit drug use, Methamphetamine abuse Instructions: Addiction: Getting Help, ED Drug Abuse Prescriptions: No Action prazosin 1 mg capsule 2 mg PO QHS gabapentin 100 mg capsule 100 mg PO TID clonazepam 0.5 mg tablet 0.5 mg PO DAILY Primary Care Provider: William Castillo Referrals: William Castillo MD [Primary Care Provider] - Activity Restrictions/Additional Instructions: Follow-up with [facility] for assistance with quitting methamphetamines. Disposition Disposition: Home, Self Care Discharge Date/Time: 06/01/23 14:42
== END 2023-06-01 14:42 | disposition home or self-care (01) ==
LOC: ED 14:37
PROVIDERS: Emergency Provider Emergency Medicine; PCP Family Medicine; Visit Provider Emergency Medicine
DX: F15.10 Other stimulant abuse, uncomplicated (principal); F17.210 Nicotine dependence, cigarettes, uncomplicated; K21.9 Gastro-esophageal reflux disease without esophagitis
CPT/HCPCS: 99282

== ENCOUNTER 2023-06-10 07:03 | Emergency (ER) | payer MEDICARE, MEDICAID, SELFPAY ==
[2023-06-10 07:04] VITALS: BP 102/75; PULSE 84; RESP 16; TEMP 35.9; O2SAT 96; BMI 28.3
--- NOTE | 2023-06-10 07:22 | RAD_ITS ---
INDICATION: chest pain EXAMINATION/TECHNIQUE: X-RAY - XR Chest 1 View COMPARISON: September 20, 2022 FINDINGS: LINES/DEVICES: None. LUNGS: No consolidation, edema or effusion. No pneumothorax. MEDIASTINUM AND CARDIOVASCULAR STRUCTURES: Cardiac silhouette not enlarged. Central airways and mediastinal contour are unremarkable. BONES AND SOFT TISSUES: Unremarkable. RAD/Chest 1 View (Portable) IMPRESSION: No radiographic evidence of acute cardiopulmonary disease. Electronically Signed: Analilia Edwards MD at 8:33 EST ,
--- NOTE | 2023-06-10 07:22 | EKG12_ITS ---
Test Reason : Blood Pressure : / mmHG Vent. Rate : 088 BPM Atrial Rate : 088 BPM P-R Int : 132 ms QRS Dur : 104 ms QT Int : 376 ms P-R-T Axes : 057 071 054 degrees QTc Int : 454 ms Normal sinus rhythm Normal ECG Confirmed by Brian Lozada ([id number]), mucking machine operator PACO MANZANO ([id number]) on 06/14/2023 1:54:15 PM Referred By: Confirmed By:Brian Lozada
--- NOTE | 2023-06-10 07:23 | EX.ED.DYSGE1 ---
HPI History of Present Illness Chief Complaint: Dizziness Narrative Narrative: 38-year-old male presenting with lightheadedness, dizziness. This started this morning. He states it lasted few minutes. He went to the bathroom and started to feel like he was sweating and lightheaded. He felt like he might faint. He did not faint. He did not go to the bathroom and then go back to his room. He states he felt like hot flash came over him. Patient states has had this several times in the past but has never been seen for it. Patient does have a history of anxiety previously on clonazepam. He states he is taking gabapentin 100 mg 3 times daily, Remeron for sleep, prazosin. He states that the gabapentin is for anxiety. Patient also has recent history of methamphetamine abuse. He recently detox from this. He states he has not used in over a week. He denies any other drug use. Denies fevers or chills. Patient states that he has not been sleeping as well as he could for the last few days but also states he is not taking his sleep meds. He has his medication refills. He sees Dr. Esau Rosa and a psychiatrist but has not seen Dr. Esau Rosa in some time. Patient also states when he was cleaning the vents over the fryer's at [facility] last night that he noted that there might have been some powder on them and he believes that was poisonous. He states they have not been cleaned in some time and is unsure how the powder got onto the events. He states he inhaled it but did not have any symptoms last night. He is not sure what the substances is [facility] Medical History Anxiety Bipolar disorder Depression GERD (gastroesophageal reflux disease) Panic attack Severe dextromethorphan use disorder Home Medications gabapentin 100 mg capsule 100 mg PO TID 09/20/22 [History Last Taken Unknown] prazosin 1 mg capsule 2 mg PO QHS 09/20/22 [History Last Taken Unknown] clonazepam 0.5 mg tablet 0.5 mg PO DAILY 12/07/22 [History Last Taken Unknown] carbamide peroxide 6.5 % ear drops (Debrox) 5 drp EACH EAR DAILY 4 days #15 mL 06/10/23 [Rx Last Taken Unknown] hydroxyzine pamoate 25 mg capsule (Vistaril) 25 mg PO TID PRN anxiety #20 caps 06/10/23 [Rx Last Taken Unknown] mirtazapine 15 mg tablet (Remeron) 15 mg PO QHS 06/10/23 [History Last Taken Unknown] Allergy/AdvReac Type Severity Reaction Status Date / Time No Known Allergies Allergy Verified 06/10/23 07:04 Social History household members: none and other details: Patient reports he has children and recently went degeneration so he could Smoking Status: Current every day smoker tobacco type: cigarettes ROS ROS ED Constitutional Constitutional ED: Denies chills, fever(s) or sweats Eyes Eyes: Denies blurry vision or change in vision ENT ENT ED: Denies ear pain or sore throat Cardiovascular Cardiovascular: Reports palpitations and other Details: Lightheadedness ; Denies racing heartbeat Respiratory/Chest Respiratory/Chest: Denies cough, dyspnea or sputum Gastrointestinal Gastrointestinal: Denies abdominal pain, constipation, diarrhea, nausea or vomiting Genitourinary Genitourinary ED: Denies dysuria, hematuria or urinary frequency Musculoskeletal Musculoskeletal: Denies arthralgias, myalgias or neck pain Integumentary Denies abscess, Abrasions or rash Neurologic Neurologic: Denies headache(s), paresthesias or weakness Psychiatric Psychiatric: Reports anxiety; Denies depression, suicidal ideation or suicidal thoughts Endocrine Endocrinology: Denies polydipsia or polyuria EXAM Physical Exam Const Vital Signs: 06/10/23 07:04 06/10/23 07:09 06/10/23 07:22 Temperature 96.6 F L Temperature Source Temporal Pulse Rate 84 Pulse Rate [Lying] Pulse Rate [Sitting (for 1 minute prior to obtaining)] Pulse Rate [Standing (for 1 minute prior to obtaining)] Respiratory Rate 16 Respiratory Effort Normal Respiratory Pattern Normal Blood Pressure 102/75 Blood Pressure [Lying] Blood Pressure [Sitting (for 1 minute prior to obtaining)] Blood Pressure [Standing (for 1 minute prior to obtaining)] Blood Pressure Mean 84 Blood Pressure Mean [Lying] Blood Pressure Mean [Sitting (for 1 minute prior to obtaining)] Blood Pressure Mean [Standing (for 1 minute prior to obtaining)] Pulse Ox 96 Oxygen Delivery Method Room Air Room Air 06/10/23 07:37 Temperature Temperature Source Pulse Rate Pulse Rate [Lying] 84 Pulse Rate [Sitting (for 1 minute prior to obtaining)] 93 Pulse Rate [Standing (for 1 minute prior to obtaining)] 108 H Respiratory Rate Respiratory Effort Respiratory Pattern Blood Pressure Blood Pressure [Lying] 102/59 L Blood Pressure [Sitting (for 1 minute prior to obtaining)] 113/69 Blood Pressure [Standing (for 1 minute prior to obtaining)] 91/61 Blood Pressure Mean Blood Pressure Mean [Lying] 73 Blood Pressure Mean [Sitting (for 1 minute prior to obtaining)] 83 Blood Pressure Mean [Standing (for 1 minute prior to obtaining)] 71 Pulse Ox Oxygen Delivery Method Positive well nourished General Appearance ED: NAD; Negative for pallor HEENT Reports moist mucous membranes and dry mucous membranes Mouth ED: Yes dry mucous membranes Mouth: dry mucous membranes Eyes PERRL and EOMs intact bilaterally Neck no lymphadenopathy and supple Resp normal respiratory effort and clear to auscultation bilaterally Auscultation: Negative for rales, rhonchi or wheezes Cardio regular rate and regular rhythm Neuro oriented x3 and CN's II-XII intact bilaterally Sensorium / Orientation: alert Psych mental status grossly normal Skin General Skin Exam: Negative for jaundice or pallor MDM MDM MDM Narrative Medical decision making narrative: Patient presenting with what I think is anxiety attack. Is a history of this. Differential includes dysrhythmia, ACS, pneumonia, anxiety, dehydration, anemia, orthostatic hypotension, drug use. Patient was also prescribed Augmentin for right otitis media which he has taken. He does have a cerumen impaction in the right ear. I will give him Debrox for this. Will obtain orthostatic vital signs. CBC to assess white blood cell count, hemoglobin, platelets. BMP to assess renal function, electrolytes, glucose, anion gap. High-sensitivity troponin to assess for ischemia. EKG to assess for dysrhythmia. Chest x-ray to rule out pneumonia or other acute process. Orthostatic vital signs were obtained and blood pressure dropped from 102/59 lying to 91/61 standing. Patient was not specifically symptomatic during this episode. Patient was given a liter of IV fluids. CBC shows no significant leukocytosis with a white was about a 5.8. Hemoglobin 13.3. Platelets normal 336. Renal function within normal limits. Sodium slightly high at 146. Patient requesting something for anxiety was given Vistaril. High-sensitivity troponin is 5. EKG on my interpretation shows a sinus rhythm at 88 bpm without sign ischemic change or ectopy. Given patient ultimately normal workup and feeling better after of IV fluids I think he can be discharged home. I will give him a function for Vistaril to take as needed. Return precautions discussed. Impression: 1. Anxiety 2. Near syncope 3. Cerumen impaction left ear Lab Data Attestation: I reviewed the patient's lab results. Labs: Laboratory Results - last 24 hr 06/10/23 07:30 WBC 5.8 RBC 4.45 L Hgb 13.3 Hct 38.6 L MCV 86.7 MCH 29.9 MCHC 34.5 RDW Std Deviation 42.7 RDW Coeff of Gabriel 13.5 Plt Count 336 MPV 7.8 Immature Gran % (Auto) 0.700 Neut % (Auto) 43.5 L Lymph % (Auto) 44.4 H Mckinley % (Auto) 10.6 H Eos % (Auto) 0.5 Baso % (Auto) 0.3 Absolute Neuts (auto) 2.5 Absolute Lymphs (auto) 2.56 Nucleated RBC % 0 Sodium 146 H Potassium 3.8 Chloride 112 H Carbon Dioxide 26.0 Anion Gap 8 BUN 13 Creatinine 1.10 Estim Creat Clear Calc 108.70 Est GFR (MDRD) Af Amer 96 Est GFR (MDRD) Non-Af 80 BUN/Creatinine Ratio 11.8 Glucose 99 Calcium 8.2 L Troponin I High Sens 5 Radiography Diagnostic Testing: Clinical Impression(s) from Imaging Studies Chest X-Ray 06/10/23 07:22 IMPRESSION: No radiographic evidence of acute cardiopulmonary disease. Electronically Signed: Analilia Edwards MD at 8:33 EST , Discharge Plan Triage Chief Complaint: Dizziness ED Provider: Adin Enriquez Dx/Rx/DC Orders Instructions: ED Anxiety Reaction, CERUMEN IMPACTION, Home Care, ED Near-Fainting, Uncertain Cause Prescriptions: New Debrox 6.5 % drops 5 drp EACH EAR DAILY 4 Days Qty: 15 0RF hydroxyzine pamoate [Vistaril] 25 mg capsule 25 mg PO TID PRN (Reason: anxiety) Qty: 20 0RF No Action prazosin 1 mg capsule 2 mg PO QHS gabapentin 100 mg capsule 100 mg PO TID clonazepam 0.5 mg tablet 0.5 mg PO DAILY mirtazapine [Remeron] 15 mg tablet 15 mg PO QHS Primary Care Provider: William Castillo Referrals: William Castillo MD [Primary Care Provider] - Disposition Disposition: Home, Self Care
[2023-06-10 07:37] VITALS: BP 102/59; BP 113/69; BP 91/61; PULSE 108; PULSE 84; PULSE 93
[2023-06-10 07:37] LABS: Absolute Lymphocyte Count 2.56 X10^3/uL (0.83-4.51); Absolute Neutrophil Count 2.5 X10^3/uL (2.0-7.7); Basophil# 0.02 X10^3/uL; Basophil% 0.3 % (0-1); Eosinophil# 0.03 X10^3/uL; Eosinophils% 0.5 % (0-5); Hematocrit 38.6 % (40-54); Hemoglobin 13.3 g/dL (13.0-16.5); Lymphocyte # 2.56 X10^3/ul (0.83-4.51); Lymphocyte % 44.4 % (19-41); Mean Corp Hgb Conc 34.5 g/dL (32-36); Mean Corpuscular Hgb 29.9 pg (27.0-32.0); Mean Corpuscular Volume 86.7 fL (80-94); Mean Platelet Vol. 7.8 fl (6.2-12.0); Monocyte# 0.61 X10^3/uL; Monocyte% 10.6 % (0-10); NRBC Flagged by Analyzer 0 % (0-5); Neutrophil # 2.51 X10^3/uL (2.7-7.7); Neutrophil % 43.5 % (47-70); Platelet Count 336 K/mm3 (150-450); RBC Distribution Width CV 13.5 % (11.6-14.6); RBC Distribution Width SD 42.7 fl (35.1-43.9); Red Blood Count 4.45 M/mm3 (4.6-6.2); White Blood Count 5.8 K/mm3 (4.4-11.0)
[2023-06-10] MEDS: 0.9% Normal Saline (1000mL) 1,000 ML 999 ML IV (07:45)
[2023-06-10 07:58] LABS: Anion Gap 8 (5-15); BUN 13 mg/dL (7-18); BUN/Creat Ratio 11.8 RATIO (10-20); Calcium,Total 8.2 mg/dL (8.5-10.1); Chloride 112 mmol/L (98-107); EST Glomerular Filtration Rate 80 mL/min (>60); Est Glom Filt Rate - Afr Amer 96 mL/min (>60); Glucose 99 mg/dL (74-106); Potassium 3.8 mmol/L (3.5-5.1); Sodium Level 146 mmol/L (136-145); Troponin-I HS 5 pg/mL (3.0-78.0)
--- OUTSIDE RECORDS SUMMARY | 2023-06-10 08:11 | XMS RPT_ITS | CCD ---
Author Name Unknown Address [address] [place] [address] Organization [facility] Care Team Providers Care Psych Social Worker Name Role Phone Alan Avina MD Primary Care Provider PCP, NONE Primary Care Physician Alan Avina MD Primary Care Provider ALAN AVINA Primary Care Unavailable SERGEY LONGORIA Attending Unavailable KALIE ARORA Attending Unavailable ALAN AVINA Primary Care Unavailable KALIE ARORA Attending Unavailable ALAN AVINA Primary Care Unavailable FALGUNI WETZEL Attending Unavailable ALAN AVINA Referring Unavailable ALAN AVINA Primary Care Unavailable ALAN AVINA Primary Care Unavailable ALAN AVINA Primary Care Unavailable FALGUNI WETZEL Attending Unavailable ALAN AVINA Primary Care Unavailable MILES EVANS Attending Unavailable Allergies Allergy Classification Reported Allergen(s) Allergy Type Date of Onset Reaction(s) Facility NEGATED: Highlighted row has been ruled out! (1 source) natural latex rubber; Translations: [LATEX, NATURAL RUBBER] Drug allergy (disorder) [facility] [place] NEGATED: Highlighted row has been ruled out! (1 source) No IV Contrast Allergy.; Translations: [IV Dye, Iodine Containing] Drug allergy (disorder) [facility] [place] Medications Current Medications Medication Drug Class(es) Dates Sig (Normalized) Sig (Original) cephalexin 500 mg oral capsule (2 sources) Cephalosporin Antibacterial Start: 07-03-2021 End: 07-08-2021 take 1 capsule by mouth every eight hours cephALEXin (KEFLEX) 500 mg capsule Take 1 capsule by mouth every 8 hours for 14 doses. 14 capsule 0 07/03/2021 07/08/2021 Active Completed/Discontinued Medications Medication Drug Class(es) Dates Sig (Normalized) Sig (Original) busPIRone hydrochloride 30 mg oral tablet (3 sources) Start: 08-29-2021 End: 07-17-2022 take 1 tablet by mouth twice daily busPIRone HCl 30 mg tablet Take 1 tablet by mouth twice daily. 0 08/29/2021 07/17/2022 Discontinued (Course of therapy completed) Problems Active Problems Problem Classification Problem Date Documented Da te Episodic/Chronic Anxiety disorders (1 source) Anxiety disorder, unspecified; Translations: [Anxiety] Onset: 12-06-2022 Chronic Asthma (11 sources) Exercise-induced asthma; Translations: [Exercise induced bronchospasm] Onset: 12-15-2013 12-15-2013 Chronic Cardiac dysrhythmias (2 sources) Palpitations; Translations: [Palpitations] 11-09-2022 Episodic Mood disorders (12 sources) Bipolar disorder; Translations: [Bipolar disorder, unspecified] Onset: 12-15-2013 12-15-2013 Chronic Other aftercare (1 source) Surgical follow-up; Translations: [Encounter for removal of sutures] Episodic Other aftercare (1 source) Post-discharge follow-up; Translations: [Encounter for follow-up examination after completed treatment for conditions other than malignant neoplasm] 12-08-2022 Episodic Other connective tissue disease (2 sources) Pain in lower limb; Translations: [Pain in Lower Extremity] 07-05-2021 Episodic Other gastrointestinal disorders (1 source) Loose stool; Translations: [Other fecal abnormalities] Episodic Other injuries and conditions due to external causes (1 source) Abrasion and/or friction burn of skin; Translations: [Other injury of unspecified body region, initial encounter] Episodic Other upper respiratory disease (12 sources) Seasonal allergy; Translations: [Other seasonal allergic rhinitis] Onset: 12-15-2013 12-15-2013 Chronic Poisoning by other medications and drugs (1 source) Poisoning by unspecified drugs, medicaments and biological substances, undetermined, initial encounter; Translations: [Poisoning by unspecified drug or medicinal substance] 11-09-2022 Episodic Residual codes; unclassified (13 sources) Obstructive sleep apnea syndrome; Translations: [Obstructive sleep apnea (adult) (pediatric)] Onset: 09-29-2019 09-29-2019 Chronic Residual codes; unclassified (1 source) Obstructive sleep apnea (adult) (pediatric); Translations: [FRANCISCO (obstructive sleep apnea)] Onset: 09-29-2019 Chronic Schizophrenia and other psychotic disorders (20 sources) Schizoaffective disorder; Translations: [Schizoaffective disorder, unspecified] Onset: 12-15-2013 12-15-2013 Chronic Substance-related disorders (8 sources) Opioid dependence, uncomplicated; Translations: [Combinations of opioid type drug with any other drug dependence, continuous] Onset: 08-25-2022 Chronic Substance-related disorders (1 source) Benzodiazepine withdrawal; Translations: [Sedative, hypnotic or anxiolytic use, unspecified with withdrawal, uncomplicated] 12-08-2022 Episodic Past or Other Problems Problem Classification Problem Date Documented Da te Episodic/Chronic Other gastrointestinal disorders (11 sources) Heartburn; Translations: [Heartburn] Onset: 12-15-2013 12-15-2013 Episodic Results Test Name Value Interpretation Reference Range Facil ity Vital Signs Date Time Vital Sign Value Performing Clinician Faci lity 12-08-2022 07:50-0400 Body weight 100.7 kg Falguni Wetzel APRN.FLORENTIN Work Phone: [facility] 12-08-2022 07:50-0400 Diastolic blood pressure 88 mm[Hg] Falguni Wetzel APRN.[employer]EL[employer]ATER Work Phone: [facility] 12-08-2022 07:50-0400 Heart rate 93 /min Falguni Wetzel APRN.[employer] Work Phone: [facility] 12-08-2022 07:50-0400 Respiratory rate 16 /min Falguni Wetzel APRN.[employer] Work Phone: [facility] 12-08-2022 07:50-0400 SaO2% (BldA) [Mass fraction] 96 % Falguni Wetzel APRN.[employer]ATER Work Phone: [facility] 12-08-2022 07:50-0400 Systolic blood pressure 130 mm[Hg] Falguni Wetzel APRN.[employer] Work Phone: [facility] 11-09-2022 09:53-0400 Body temperature 97 [degF] Miles Evans PA-C Work Phone: [facility] 11-09-2022 09:53-0400 Body weight 103.87 kg Milesguero Evans PA-C Work Phone: [facility] 11-09-2022 09:53-0400 Diastolic blood pressure 66 mm[Hg] Miles Evans PA-C Work Phone: [facility] 11-09-2022 09:53-0400 Heart rate 123 /min Miles Evans PA-C Work Phone: [facility] 11-09-2022 09:53-0400 Respiratory rate 18 /min Miles Evans PA-C Work Phone: [facility] 11-09-2022 09:53-0400 Systolic blood pressure 104 mm[Hg] Miles Evans PA-C Work Phone: [facility] 08-25-2022 11:19-0400 Body weight 102.88 kg Kalie Arora PULLER OUT.[employer]ATER Work Phone: [facility] 08-25-2022 11:19-0400 Diastolic blood pressure 78 mm[Hg] Kalie Jose L P[employer]ER OUT.[employer]ATER Work Phone: [facility] 08-25-2022 11:19-0400 Heart rate 94 /min Kalie Jose L P[employer]ER OUT.[employer] Work Phone: [facility] 08-25-2022 11:19-0400 Respiratory rate 16 /min Kalie Jose L P[employer]ER OUT.[employer]EL[employer] Work Phone: [facility] 08-25-2022 11:19-0400 SaO2% (BldA) [Mass fraction] 98 % Kalie Arora PULLER OUT.[employer]ELS [employer]ATER Work Phone: [facility] 08-25-2022 11:19-0400 Systolic blood pressure 138 mm[Hg] Kalie Jose L P[employer]ER OUT.[employer]ATER Work Phone: [facility] 07-17-2022 07:50-0400 Body temperature 98.49 [degF] Kalie Jose L P[employer]ER OUT.[employer] Work Phone: [facility] 07-17-2022 07:50-0400 Body weight 107.96 kg Kalie Jose L P[employer]ER OUT.[employer] Work Phone: [facility] 07-17-2022 07:50-0400 Diastolic blood pressure 83 mm[Hg] Kalie Jose L PULLER OUT.[employer]S [employer]ATER Work Phone: [facility] 07-17-2022 07:50-0400 Heart rate 97 /min Kalie Jose L PULLER OUT.[employer] Work Phone: [facility] 07-17-2022 07:50-0400 Respiratory rate 16 /min Kalie Jose L P[employer]ER OUT.[employer]EL[employer]ATER Work Phone: [facility] 07-17-2022 07:50-0400 SaO2% (BldA) [Mass fraction] 96 % Kalie Jose L P[employer]ER OUT.[employer] Work Phone: [facility] 07-17-2022 07:50-0400 Systolic blood pressure 127 mm[Hg] Kalie Jose L P[employer]ER OUT.[employer] Work Phone: [facility] 05-04-2022 07:04-0500 Body weight 105.69 kg Falguni Suarezf P[employer]ER OUT.[employer] Work Phone: [facility] 05-04-2022 07:04-0500 Diastolic blood pressure 80 mm[Hg] Falguni Tannhof P[employer]ER OUT.[employer]ATER Work Phone: [facility] 05-04-2022 07:04-0500 Heart rate 97 /min Falguni Tannhof P[employer]ER OUT.[employer]EL[employer]ATER Work Phone: [facility] 05-04-2022 07:04-0500 Respiratory rate 16 /min Falguni Tannhof P[employer]ER OUT.[employer]S [employer]ATER Work Phone: [facility] 05-04-2022 07:04-0500 SaO2% (BldA) [Mass fraction] 97 % Falguni Tannhof P[employer]ER OUT.[employer]ELS [employer]ATER Work Phone: [facility] 05-04-2022 07:04-0500 Systolic blood pressure 118 mm[Hg] Falguni Suarezf P[employer]ER OUT.[employer] Work Phone: [facility] 07-07-2021 08:35-0400 Body weight 96.62 kg Falguni Suarezf P[employer]ER OUT.[employer] Work Phone: [facility] 07-07-2021 08:35-0400 Diastolic blood pressure 62 mm[Hg] Falguni Larioshof PULLER OUT.[employer]EL[employer]ATER Work Phone: [facility] 07-07-2021 08:35-0400 Heart rate 106 /min Falguni Larioshof PULLER OUT.[employer] Work Phone: [facility] 07-07-2021 08:35-0400 Respiratory rate 16 /min Falguni Suarezf P[employer]ER OUT.[employer] Work Phone: [facility] 07-07-2021 08:35-0400 SaO2% (BldA) [Mass fraction] 95 % Falguni Suarezf P[employer]ER OUT.[employer] Work Phone: [facility] 07-07-2021 08:35-0400 Systolic blood pressure 100 mm[Hg] Falguni Larioshof P[employer]ER OUT.[employer] Work Phone: [facility] 07-05-2021 13:51-0400 Body mass index (BMI) [Ratio] 28.4 kg/m2 DO Marco Medina DO [id number] 07-05-2021 13:51-0400 Body weight 95 kg DO Marco Cazarest DO [facility] [place] Encounters Encounter Date Encounter Type Care Provider Facility Start: 03-30-2023 End: 03-30-2023 ambulatory [facility] Facility:[facility] Start: 12-08-2022 End: 12-08-2022 ambulatory [facility] Facility:[facility] Start: 12-08-2022 End: 12-08-2022 Patient encounter procedure Falguni Wetzel P[employer]ER OUT.[employer] Work Phone: [facility] Procedures Date Procedure Procedure Detail Performing Clinician Start: 06-28-2021 Antibody screen Plan of Treatment Date Care Activity Detail Author Start: 06-29-2031 Urine microalbumin profile DTA P,TDAP,TD (2 - Td or Tdap) [facility] Start: 06-29-2026 LIPID SCREEN LIPID SCREEN [facility] Start: 12-09-2023 ANNUAL PCP TEAM SENIOR 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 ENGINEER SOFÍA DISEASE VISIT ANNUAL PCP TEAM CHRONIC DISEASE VISIT [facility] Start: 11-10-2023 ANNUAL PCP TEAM SENIOR HARDWARE ENGINEER SOFÍA DISEASE VISIT ANNUAL PCP TEAM CHRONIC DISEASE VISIT [facility] Start: 08-26-2023 ANNUAL PCP TEAM SENIOR HARDWARE ENGINEER SOFÍA DISEASE VISIT ANNUAL PCP TEAM CHRONIC DISEASE VISIT [facility] Start: 07-18-2023 ANNUAL PCP TEAM SENIOR HARDWARE ENGINEER SOFÍA DISEASE VISIT ANNUAL PCP TEAM CHRONIC DISEASE VISIT [facility] Start: 05-04-2023 ANNUAL PCP TEAM SENIOR HARDWARE ENGINEER SOFÍA DISEASE VISIT ANNUAL PCP TEAM CHRONIC DISEASE VISIT [facility] Start: 12-04-2022 Influenza vaccination C [facility] Start: 07-07-2022 ANNUAL PCP TEAM SENIOR HARDWARE ENGINEER SOFÍA DISEASE VISIT ANNUAL PCP TEAM CHRONIC DISEASE VISIT [facility] Start: 05-26-2022 ANNUAL PCP TEAM SENIOR HARDWARE ENGINEER SOFÍA DISEASE VISIT ANNUAL PCP TEAM CHRONIC DISEASE VISIT [facility] Start: 04-05-2022 [facility] Start: 12-04-2021 Influenza vaccination C [facility] Start: 10-02-2021 Influenza vaccination INFLUENZA (#1) [facility] Immunizations Immunization Date Immunization Notes Care Provider Fa cility 06-28-2021 tetanus toxoid, redu tyrell diphtheria toxoid, and acellular pertussis vaccine, adsorbed oNrm Portillo [facility] Work Phone: [facility] 01-06-2021 COVID-19 vaccine, ag e 12+ yr (Wear-BIONTDatacastle - PURPLE TOP) Norm Portillo [facility] Work Phone: [facility] Payers Date Payer Category Payer Unknown ANTHEM BLUE CROS S AND BLUE SHIELD ANTHEM MEDIBLUE O [id number] 2022-Present [phone] [address] [place] [address] O [id number] 2022 Unknown [id number] 2018 Medicaid [facility] MEDICAID MYC ARE [facility] MEDICAID [id number] 2018-Present [phone] [address] [place] [address] Medicaid [id number] 2018 Medicaid UHC MEDICAID MYC ARE [facility] MEDICAID [id number] 2018-Present [phone] [address] [place] [address] Medicaid [id number] 2018 Medicaid [id number] 2013 Medicare MEDICARE MEDICAR E A AND B [id number] 2013-Present [phone] [place] [address] Medicare [id number] 2013 Medicare MEDICARE MEDICAR E A AND B [id number] 2013-Present [phone] [place] [address] Medicare [id number] 2013 Medicare [id number] Social History Date Type Detail Facility Start: 08-27-2011 End: 02-19-2022 Tobacco smoking status COIS Smokes tobacco daily [facility] Start: 08-27-2011 End: 08-25-2022 Cigarettes smoked current (pack per day) - Reported 0.2 [facility] Start: 08-27-2011 End: 02-19-2022 Tobacco use and exposure Smokeless tobacco non-user [facility] Start: 05-26-2021 End: 12-08-2022 Alcohol intake Current non-drinker of alcohol (finding) [facility] Start: 1985 Sex Assigned At Not on file C [facility] Start: 06-18-2021 End: 07-07-2021 Exposure to SARS-CoV-2 (event) Not sure [facility] Start: 08-25-2022 End: 11-09-2022 [facility] [place] History of tobacco use Cigarette Smoker C [facility] Adult Depression Scr eening Assessment 0 [facility] Clinical Notes 06-28-2021 to 03-30-2023 Falguni Wetzel APRN.[employer]ED [employer]ARD PANELS PLATER - 12/08/2022 8:20 AM EDTPatient InstructionsTelephone Encounter - Miles Evans PA-C - 11/16/2022 10:26 AM EDTRMiles condon PA-C - 11/09/2022 10:06 AM EDT Note Date & Type Note Facility 03-30-2023 Note HNO ID: [id number] Author: Sofi Lara APRN.[facility]ORENTIN Service: ? Author Type: Nurse Practitioner Type: Progress Notes Filed: 03/30/2023 12:55 PM Note Text: CC: Patient presents with: Headache: diarrhea, bodyaches, sneezing and chills x 2-3 days HPI: Tyson Cbob is a 38 year old male who presents to the office with complaint of cough, nonproductive for a few days. Symptoms are staying the same. Associated symptoms includes sneezing, nasal congestion, headache, and body aches. Denies rash, nausea, vomiting , and diarrhea. Treatments tried include nothing so far. with no relief of symptoms. Sick contacts: unknown. History of asthma, frequent episodes of bronchitis, chronic bronchitis, bronchiectasis or COPD: No Smoker: No Seasonal/environmental allergies: No The ROS is otherwise negative. The patient's pmh, medications, allergies, and past visits are reviewed. PHYSICAL EXAM: BP 118/66 Pulse 116 Temp 37.6 ?C (99.7 ?F) Resp 16 Wt 103 kg (227 lb) SpO2 97% BMI 30.79 kg/m? General appearance: alert, cooperative, pleasant, in no acute distress Head: Normocephalic Eyes: EOM's intact, conjunctiva pink and moist, no icterus, sclera white, non-injected Ears: Right ear: External ear/canal- Normal, TM - clear with good landmarks. Left ear: External ear/canal- Normal, TM - clear with good landmarks Oropharynx:moderate erythema, without exudates present Heart: Negative. RRR without obvious murmur, gallop, or rubs. No ectopy. Lungs: clear to auscultation, without rales or wheeze, good air exchange PAST MEDICAL HISTORY Diagnosis Date Asthma EXERCISE INDUCED GERD (gastroesophageal reflux disease) Nightmares FRANCISCO (obstructive sleep apnea) Psychiatric disorder BIPOLAR; SCHIZOAFFECTIVE D/O PAST SURGICAL HISTORY Procedure Laterality Date PAST SURGICAL HISTORY OF wisdom teeth ALLERGIES Patient has no known allergies. MEDICATIONS CPAP/BIPAP/OTHER Type .CPAPSettings into a note to see current settings/supplies/DME information. gabapentin (NEURONTIN) 100 mg capsule 300 mg three times daily. prazosin (MINIPRESS) 2 mg cap Take 2 mg by mouth once daily. Mirtazapine 45 mg disintegrating tablet clonazePAM (KLONOPIN) 0.5 mg tablet Take 0.5 mg by mouth twice daily. (Patient not taking: Reported on 03/30/2023) CPAP Initiate Auto PAP @ 5-12 cm of water with humidification. Mask (per patient preference) optional chin strap (if indicated) , filters, tubing, humidifier and lifetime supplies. A medium ResMed AirFit P10 nasal pillows mask without chin strap was used. (Patient not taking: Reported on 11/09/2022) omeprazole (PRILOSEC) 20 mg capsule Take 20 mg by mouth twice daily. (Patient not taking: Reported on 03/30/2023) FAMILY HISTORY Problem Relation Age of Onset No Known Problems Mother Cancer Father skin Social History Tobacco Use Smoking status: Every Day Packs/day: .2 Types: Cigarettes Smokeless tobacco: Never Vaping Use Vaping Use: current everyday user Substance Use Topics Alcohol use: No Drug use: Yes Types: Marijuana Comment: daily ASSESSMENT/PLAN: 1. Streptococcus exposure - ICD9: V01.89, ICD10: Z20.818 (primary diagnosis) - STREP A MOLECULAR (POC)-neg 2. URI, acute - ICD9: 465.9, ICD10: J06.9 - COVID AND INFLUENZA A/B AND RSV NAAT, ROUTINE Prescription instructions reviewed with patient as applicable. Potential red flag symptoms discussed with the patient. Reviewed appropriate action plan to take if red flag symptoms occur. Patient agreeable to treatment plan. Sofi Lara APRN.[facility] 01-16-2023 Note HNO ID: [id number] Author: Note, Interface Service: ? Author Type: ? Type: Progress Notes Filed: 01/16/2023 5:08 AM Note Text: Epic Scheduled Downtime: 01/16/2023 1:00:00 AM to 01/16/2023 1:28:00 AM [facility] 12-08-2022 Note HNO ID: [id number] Author: Falguni Wetzel APRN.[employer]ELS PLATER Service: ? Author Type: Nurse Practitioner Type: Progress Notes Filed: 12/08/2022 9:28 AM Note Text: This is a 37 year old male who presents today with: Patient presents with: Acute Visit: sleep apnea- ER follow up HISTORY OF PRESENT ILLNESS: Tyson Cobb is a 37 year old male. Patient presents with: Acute Visit: sleep apnea- ER follow up Needs new RX for CPAP. Has not had a machine since 2021. History of sleep apnea. Does not have a machine. Day time fatigue and sleepiness. Does not feel refreshed when he wakes up in the morning. HOSPITAL/ER FOLLOW UP: Reason for visit: Medication Refill / acute anxiety Which facility: [facility] ER Date of visit: 12/07/2022 Diagnosis: Benzodiazepine withdrawal Testing done: None Treatment given: Valium 5 mg Current symptoms: Following with counseling center. Was out of medication and started to have increase in anxiety and rapid heart rate. Refers that the valium helped. He will be following up with his counselor. PAST MEDICAL HISTORY: PAST MEDICAL HISTORY Diagnosis Date Asthma EXERCISE INDUCED GERD (gastroesophageal reflux disease) Nightmares FRANCISCO (obstructive sleep apnea) Psychiatric disorder BIPOLAR; SCHIZOAFFECTIVE D/O PAST SURGICAL HISTORY Procedure Laterality Date PAST SURGICAL HISTORY OF wisdom teeth ALLERGIES Patient has no known allergies. MEDICATIONS Current Outpatient Medications Medication Sig gabapentin (NEURONTIN) 100 mg capsule 300 mg three times daily. clonazePAM (KLONOPIN) 0.5 mg tablet Take 0.5 mg by mouth twice daily. prazosin (MINIPRESS) 2 mg cap Take 2 mg by mouth once daily. CPAP Initiate Auto PAP @ 5-12 cm of water with humidification. Mask (per patient preference) optional chin strap (if indicated) , filters, tubing, humidifier and lifetime supplies. A medium ResMed AirFit P10 nasal pillows mask without chin strap was used. (Patient not taking: Reported on 11/09/2022) omeprazole (PRILOSEC) 20 mg capsule Take 20 mg by mouth twice daily. No current facility-administered medications for this visit. FAMILY HISTORY Problem Relation Age of Onset No Known Problems Mother Cancer Father skin Social History Tobacco Use Smoking status: Every Day Packs/day: .2 Types: Cigarettes Smokeless tobacco: Never Vaping Use Vaping Use: current everyday user Substance Use Topics Alcohol use: No Drug use: Yes Types: Marijuana Comment: daily REVIEW OF SYSTEMS GENERAL: No weight loss, malaise or fevers/chills HEENT: Negative for frequent or significant headaches, No changes in hearing or vision. NECK: Negative for lumps, goiter, pain and significant neck swelling RESPIRATORY: Negative for cough, hemoptysis, wheezing, dyspnea or shortness of breath CARDIOVASCULAR: Negative for chest pain, leg swelling, orthopnea, or palpitations GI: No nausea, vomiting, or diarrhea/constipation. No hematochezia/melena. No heartburn or reflux symptoms. : No history of dysuria, frequency or incontinence MUSCULOSKELETAL: Negative for joint pain or swelling. SKIN: Negative for lesions, rash, and itching ENDOCRINE: Negative for cold or heat intolerance, polyuria, polydipsia and goiter NEURO: No history of headaches, syncope, paralysis, seizures or tremors MOOD: Negative for depression, anxiety, or suicidal ideation. EXAM: BP 130/88 Pulse 93 Resp 16 Wt 100.7 kg (222 lb) SpO2 96% BMI 30.11 kg/m? PHYSICAL EXAM: General Appearance: Well appearing, alert, in no acute distress, well-hydrated, well nourished.. Skin: Skin color, texture, turgor normal, no suspicious rashes or lesions. Head: Normocephalic, no masses, lesions, tenderness or abnormalities. Eyes: Anicteric sclera. Extraocular movements are intact. Lungs: Lungs clear to auscultation. No wheezing, rhonchi, rales. Heart: RRR without murmur, gallop, or rubs. No ectopy. Extremities: No deformities, edema, skin discoloration, clubbing or cyanosis. Good capillary refill. Peripheral Pulses: Normal, Capillary refill <2secs, strong peripheral pulses, Pulses palpable. Neurologic: Gait normal. Reflexes normal and symmetric. Sensation grossly intact. Mood: Pleasant, engaged ASSESSMENT/PLAN: 1. Hospital discharge follow-up - ICD9: V67.59, ICD10: Z09 (primary diagnosis) - Doing well since hospital discharge. 2. 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 - Follow up with counseling center as planned. 3. FRANCISCO (obstructive sleep apnea) - ICD9: 327.23, ICD10: G47.33 - PAP THERAPY ORDER - CPAP/BIPAP/OTHER - CONSULT TO SLEEP MEDICINE - ADULT Follow up as needed. Discussed treatment plan and patient voices understanding. Patient's questions answered appropriately. Medications and potential side effects were discussed and patient voices understanding. Falguni Wetzel APRN.[employer]ARD PANELS PLATER This note w (more content not included)... [facility] 12-08-2022 History of Presen t illness Narrative This is a 37 year old male who presents today with: Patient presents with: Acute Visit: sleep apnea- ER follow up HISTORY OF PRESENT ILLNESS: Tyson Cobb is a 37 year old male. Patient presents with: Acute Visit: sleep apnea- ER follow up Needs new RX for CPAP. Has not had a machine since 2021. History of sleep apnea. Does not have a machine. Day time fatigue and sleepiness. Does not feel refreshed when he wakes up in the morning. HOSPITAL/ER FOLLOW UP: Reason for visit: Medication Refill / acute anxiety Which facility: [facility] ER Date of visit: 12/07/2022 Diagnosis: Benzodiazepine withdrawal Testing done: None Treatment given: Valium 5 mg Current symptoms: Following with counseling center. Was out of medication and started to have increase in anxiety and rapid heart rate. Refers that the valium helped. He will be following up with his counselor. PAST MEDICAL HISTORY: PAST MEDICAL HISTORY Diagnosis Date Asthma EXERCISE INDUCED GERD (gastroesophageal reflux disease) Nightmares FRANCISCO (obstructive sleep apnea) Psychiatric disorder BIPOLAR; SCHIZOAFFECTIVE D/O PAST SURGICAL HISTORY Procedure Laterality Date PAST SURGICAL HISTORY OF wisdom teeth ALLERGIES Patient has no known allergies. MEDICATIONS Current Outpatient Medications Medication Sig gabapentin (NEURONTIN) 100 mg capsule 300 mg three times daily. clonazePAM (KLONOPIN) 0.5 mg tablet Take 0.5 mg by mouth twice daily. prazosin (MINIPRESS) 2 mg cap Take 2 mg by mouth once daily. CPAP Initiate Auto PAP @ 5-12 cm of water with humidification. Mask (per patient preference) optional chin strap (if indicated) , filters, tubing, humidifier and lifetime supplies. A medium ResMed AirFit P10 nasal pillows mask without chin strap was used. (Patient not taking: Reported on 11/09/2022) omeprazole (PRILOSEC) 20 mg capsule Take 20 mg by mouth twice daily. No current facility-administered medications for this visit. FAMILY HISTORY Problem Relation Age of Onset No Known Problems Mother Cancer Father skin Social History Tobacco Use Smoking status: Every Day Packs/day: .2 Types: Cigarettes Smokeless tobacco: Never Vaping Use Vaping Use: current everyday user Substance Use Topics Alcohol use: No Drug use: Yes Types: Marijuana Comment: daily REVIEW OF SYSTEMS GENERAL: No weight loss, malaise or fevers/chills HEENT: Negative for frequent or significant headaches, No changes in hearing or vision. NECK: Negative for lumps, goiter, pain and significant neck swelling RESPIRATORY: Negative for cough, hemoptysis, wheezing, dyspnea or shortness of breath CARDIOVASCULAR: Negative for chest pain, leg swelling, orthopnea, or palpitations GI: No nausea, vomiting, or diarrhea/constipation. No hematochezia/melena. No heartburn or reflux symptoms. : No history of dysuria, frequency or incontinence MUSCULOSKELETAL: Negative for joint pain or swelling. SKIN: Negative for lesions, rash, and itching ENDOCRINE: Negative for cold or heat intolerance, polyuria, polydipsia and goiter NEURO: No history of headaches, syncope, paralysis, seizures or tremors MOOD: Negative for depression, anxiety, or suicidal ideation. EXAM: BP 130/88 Pulse 93 Resp 16 Wt 100.7 kg (222 lb) SpO2 96% BMI 30.11 kg/m PHYSICAL EXAM: General Appearance: Well appearing, alert, in no acute distress, well-hydrated, well nourished.. Skin: Skin color, texture, turgor normal, no suspicious rashes or lesions. Head: Normocephalic, no masses, lesions, tenderness or abnormalities. Eyes: Anicteric sclera. Extraocular movements are intact. Lungs: Lungs clear to auscultation. No wheezing, rhonchi, rales. Heart: RRR without murmur, gallop, or rubs. No ectopy. Extremities: No deformities, edema, skin discoloration, clubbing or cyanosis. Good capillary refill. Peripheral Pulses: Normal, Capillary refill <2secs, strong peripheral pulses, Pulses palpable. Neurologic: Gait normal. Reflexes normal and symmetric. Sensation grossly intact. Mood: Pleasant, engaged ASSESSMENT/PLAN: 1. Hospital discharge follow-up - ICD9: V67.59, ICD10: Z09 (primary diagnosis) - Doing well since hospital discharge. 2. 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 - Follow up with counseling center as planned. 3. FRANCISCO (obstructive sleep apnea) - ICD9: 327.23, ICD10: G47.33 - PAP THERAPY ORDER - CPAP/BIPAP/OTHER - CONSULT TO SLEEP MEDICINE - ADULT Follow up as needed. Discussed treatment plan and patient voices understanding. Patient's questions answered appropriately. Medications and potential side effects were discussed and patient voices understanding. Falguni Wetzel APRN.CNP This note was partially generated using [employer] voice recognition system. Note was reviewed for accuracy. There may be minor misspellings or grammar miscues with [employer] voice recognition. documented in this encounter [facility] 12-08-2022 Instructions Falguni Wetzel APRN.CNP - 12/08/2022 8:19 AM EDT Use CPAP as directed. Any issues with CPAP recommend consult with sleep medicine if needed. Follow up as needed. documented in this encounter [facility] 11-16-2022 Miscellaneous Notes Noted. Pt went to [facility] ER 8/11/23 for overdose (see scanning). Was transferred to Psych hospital or unit. See scanning. Attempted to contact pt. Call went straight to and has not been set up. Will need to try again later. Jane Rizvi LPN Noted. Please call and check on patient. Did he follow up with psychiatry as we discussed. Miles Evans PA-C Dr Bennett from [facility] returning your call. He will be back in the office on Wednesday 8 30 am to 5 pm. documented in this encounter [facility] 11-15-2022 Miscellaneous Notes Patient called stating need CPAP because he is unable to breath at night. Feels like he is going to . Patient stated he is in the psychiatric unit. Asked patient to press call button to notify RN that NOC was on the line. RN at the facility unable to come to phone. RN at facility gave patient number to contact nursing station at [facility] [phone]. NOC called number twice. No answer. NOC attempted to contact RN by calling [facility] directly at . Shop Girl at [facility] stated they do not have patient with his name at that facility and that they do not have mental health unit. documented in this encounter [facility] 11-09-2022 Note HNO ID: [id number] Author: Miles Evans PA-C Service: ? Author Type: Physician Wardrobe Stylist Type: Progress Notes Filed: 11/09/2022 10:45 AM Note Text: Chief Complaint Patient presents with: Hypertension: Patient reports bp was high at hospital visits in August and was advised to follow up on this HPI Tyson Cobb is a 37 year old male who presents here today for Above Complaints.. Patient is concerned about BP and pulse. Patient reports that every morning that he wakes up, he feels like his heart is racing. Is seeing psychiatry and currently on klonopin, prazosin and gabapentin for his anxiety/bipolar symptoms. Has been working on cutting back on his caffeine- down to 1 to 2 cans of coke per day. Feels like the palpitations and racing HR as gotten worse. Although he does know that his anxiety has been worsening and wonders if it's actually anxiety induced. Toward end of visit when I discussed working up his tachycardia patient told me that he Kind of overdosed on his medications last night. Patient states he took 8-12 klonopin and also maybe about 10 gabapentin last night. Reports that his girlfriend told him that she wasn't sure she wanted to be in relationship anymore. He denies feeling suicidal and denies thoughts of violence. Just wanted to numb the pain he was feeling. Last 6 Encounter Pulse Readings: Date: Pulse: 11/09/2022 123 08/25/2022 94 07/17/2022 97 05/04/2022 97 02/19/2022 96 08/29/2021 94 Past medical history, appointments, medications, allergies reviewed. Previous Medical History PAST MEDICAL HISTORY Diagnosis Date Asthma EXERCISE INDUCED GERD (gastroesophageal reflux disease) Nightmares FRANCISCO (obstructive sleep apnea) Psychiatric disorder BIPOLAR; SCHIZOAFFECTIVE D/O Previous Surgical History PAST SURGICAL HISTORY Procedure Laterality Date PAST SURGICAL HISTORY OF wisdom teeth Family History FAMILY HISTORY Problem Relation Age of Onset No Known Problems Mother Cancer Father skin Patient Allergies ALLERGIES No Known Allergies Current Medications Current Outpatient Medications on File Prior to Visit Medication Sig gabapentin (NEURONTIN) 100 mg capsule 300 mg three times daily. clonazePAM (KLONOPIN) 0.5 mg tablet Take 0.5 mg by mouth twice daily. prazosin (MINIPRESS) 2 mg cap Take 2 mg by mouth once daily. omeprazole (PRILOSEC) 20 mg capsule Take 20 mg by mouth twice daily. LORazepam (ATIVAN) 1 mg tablet Take 1 tablet by mouth three times daily. (Patient not taking: Reported on 11/09/2022) QUEtiapine (SEROQUEL) 50 mg tablet Take 1 tablet by mouth daily at bedtime. (Patient not taking: Reported on 11/09/2022) pantoprazole DR (PROTONIX) 40 mg tablet Take 1 tablet by mouth once daily. (Patient not taking: Reported on 11/09/2022) CPAP Initiate Auto PAP @ 5-12 cm of water with humidification. Mask (per patient preference) optional chin strap (if indicated) , filters, tubing, humidifier and lifetime supplies. A medium ResMed AirFit P10 nasal pillows mask without chin strap was used. (Patient not taking: Reported on 11/09/2022) No current facility-administered medications on file prior to visit. Social History Social History Tobacco Use Smoking status: Every Day Packs/day: 0.20 Types: Cigarettes Smokeless tobacco: Never Vaping Use Vaping Use: current everyday user Substance Use Topics Alcohol use: No Drug use: Yes Types: Marijuana Comment: daily Review of Symptoms REVIEW OF SYSTEMS See hpi EXAM: BP 104/66 (BP Site: Left Arm, BP Position: Sitting, BP Cuff Size: Regular Adult) Pulse (!) 123 Temp 36.1 ?C (97 ?F) Resp 18 Wt 103.9 kg (229 lb) BMI 31.06 kg/m? General Appearance: Well appearing, alert, in no acute distress, well-hydrated, well nourished.. Lungs: Lungs clear to auscultation. No wheezing, rhonchi, rales.. Heart: tachycardic. Health Maintenance List HEPATITIS B(1 of 3 - 3-dose series) Never done PNEUMOCOCCAL(1 - PCV) Never done SPIROMETRY Never done HEPATITIS C SCREENING Never done HIV SCREENING Never done COVID-19 VACCINE(3 - Pfizer series) due on 03/03/2021 DEPRESSION ASSESSMENT Never done INFLUENZA(1) due on 12/04/2022 ANNUAL PCP TEAM CHRONIC DISEASE VISIT due on 08/26/2023 LIPID SCREEN due on 06/29/2026 DTAP,TDAP,TD(2 - Td or Tdap) due on 06/29/2031 HPV VACCINE Aged Out Data reviewed ASSESSMENT/PLAN: 1. Palpitations - ICD9: 785.1, ICD10: R00.2 (primary diagnosis) Patient declines work up. Likely related to anxiety 2. Tachycardia - ICD9: 785.0, ICD10: R00.0 As above Current episode likely related panic episode and taking excess of medication. Advised ER but patient refusing. Discussed potential risks and patient voiced understanding. Offered to call squad and patient again declines and left the office. 3. Polysubstance (including opioids) dependence, daily use (HCC) - ICD9: 304.71, ICD10: F11.20, F19.20 Continue with psych (more content not included)... [facility] 11-09-2022 History of Presen t illness Narrative Chief Complaint Patient presents with: Hypertension: Patient reports bp was high at hospital visits in August and was advised to follow up on this HPI Tyson Cobb is a 37 year old male who presents here today for Above Complaints.. Patient is concerned about BP and pulse. Patient reports that every morning that he wakes up, he feels like his heart is racing. Is seeing psychiatry and currently on klonopin, prazosin and gabapentin for his anxiety/bipolar symptoms. Has been working on cutting back on his caffeine- down to 1 to 2 cans of coke per day. Feels like the palpitations and racing HR as gotten worse. Although he does know that his anxiety has been worsening and wonders if it's actually anxiety induced. Toward end of visit when I discussed working up his tachycardia patient told me that he Kind of overdosed on his medications last night. Patient states he took 8-12 klonopin and also maybe about 10 gabapentin last night. Reports that his girlfriend told him that she wasn't sure she wanted to be in relationship anymore. He denies feeling suicidal and denies thoughts of violence. Just wanted to numb the pain he was feeling. Last 6 Encounter Pulse Readings: Date: Pulse: 11/09/2022 123 08/25/2022 94 07/17/2022 97 05/04/2022 97 02/19/2022 96 08/29/2021 94 Past medical history, appointments, medications, allergies reviewed. Previous Medical History PAST MEDICAL HISTORY Diagnosis Date Asthma EXERCISE INDUCED GERD (gastroesophageal reflux disease) Nightmares FRANCISCO (obstructive sleep apnea) Psychiatric disorder BIPOLAR; SCHIZOAFFECTIVE D/O Previous Surgical History PAST SURGICAL HISTORY Procedure Laterality Date PAST SURGICAL HISTORY OF wisdom teeth Family History FAMILY HISTORY Problem Relation Age of Onset No Known Problems Mother Cancer Father skin Patient Allergies ALLERGIES No Known Allergies Current Medications Current Outpatient Medications on File Prior to Visit Medication Sig gabapentin (NEURONTIN) 100 mg capsule 300 mg three times daily. clonazePAM (KLONOPIN) 0.5 mg tablet Take 0.5 mg by mouth twice daily. prazosin (MINIPRESS) 2 mg cap Take 2 mg by mouth once daily. omeprazole (PRILOSEC) 20 mg capsule Take 20 mg by mouth twice daily. LORazepam (ATIVAN) 1 mg tablet Take 1 tablet by mouth three times daily. (Patient not taking: Reported on 11/09/2022) QUEtiapine (SEROQUEL) 50 mg tablet Take 1 tablet by mouth daily at bedtime. (Patient not taking: Reported on 11/09/2022) pantoprazole DR (PROTONIX) 40 mg tablet Take 1 tablet by mouth once daily. (Patient not taking: Reported on 11/09/2022) CPAP Initiate Auto PAP @ 5-12 cm of water with humidification. Mask (per patient preference) optional chin strap (if indicated) , filters, tubing, humidifier and lifetime supplies. A medium ResMed AirFit P10 nasal pillows mask without chin strap was used. (Patient not taking: Reported on 11/09/2022) No current facility-administered medications on file prior to visit. Social History Social History Tobacco Use Smoking status: Every Day Packs/day: 0.20 Types: Cigarettes Smokeless tobacco: Never Vaping Use Vaping Use: current everyday user Substance Use Topics Alcohol use: No Drug use: Yes Types: Marijuana Comment: daily Review of Symptoms REVIEW OF SYSTEMS See hpi EXAM: BP 104/66 (BP Site: Left Arm, BP Position: Sitting, BP Cuff Size: Regular Adult) Pulse (!) 123 Temp 36.1 C (97 F) Resp 18 Wt 103.9 kg (229 lb) BMI 31.06 kg/m General Appearance: Well appearing, alert, in no acute distress, well-hydrated, well nourished.. Lungs: Lungs clear to auscultation. No wheezing, rhonchi, rales.. Heart: tachycardic. Health Maintenance List HEPATITIS B(1 of 3 - 3-dose series) Never done PNEUMOCOCCAL(1 - PCV) Never done SPIROMETRY Never done HEPATITIS C SCREENING Never done HIV SCREENING Never done COVID-19 VACCINE(3 - Pfizer series) due on 03/03/2021 DEPRESSION ASSESSMENT Never done INFLUENZA(1) due on 12/04/2022 ANNUAL PCP TEAM CHRONIC DISEASE VISIT due on 08/26/2023 LIPID SCREEN due on 06/29/2026 DTAP,TDAP,TD(2 - Td or Tdap) due on 06/29/2031 HPV VACCINE Aged Out Data reviewed ASSESSMENT/PLAN: 1. Palpitations - ICD9: 785.1, ICD10: R00.2 (primary diagnosis) Patient declines work up. Likely related to anxiety 2. Tachycardia - ICD9: 785.0, ICD10: R00.0 As above Current episode likely related panic episode and taking excess of medication. Advised ER but patient refusing. Discussed potential risks and patient voiced understanding. Offered to call squad and patient again declines and left the office. 3. Polysubstance (including opioids) dependence, daily use (HCC) - ICD9: 304.71, ICD10: F11.20, F19.20 Continue with psych 4. Overdose of undetermined intent, initial encounter - ICD9: 977.9, E980.5, ICD10: T50.904A I do not feel that the patient is suicidal however does have poor decision making. As patient was leaving, I told him that I would contact his psychiatrist so that they can reach out to him later today. I would like crisis to get involved, but patient refused to stay in office. Patient states he does not feel like he needs to be admitted again. Reports he plans on going to library today and doing his GED classes and has follow up with psych on Wednesday. Miles Evans PA-C documented in this encounter [facility] 09-07-2022 Miscellaneous Notes Called the patient to get him scheduled with a sooner appointment with a neurology sleep provider. The patient is working on getting a new CPAP machine. The patient would like to use the machine before the appointment. The patient will call the office once he starts using the machine. We will look for a sooner appointment. documented in this encounter [facility] 08-25-2022 Note HNO ID: [id number] Author: Kalie Arora APRN.FLORENTIN Service: ? Author Type: Nurse Practitioner Type: Progress Notes Filed: 08/25/2022 12:13 PM Note Text: Chief Complaint Patient presents with: Follow Up For: New script for CPAP machine; insurance needs updated face to face HPI Tyson Cobb is a 37 year old male who presents here today for Chronic Medical Conditions. follow up for FRANCISCO. Patient is here for FRANCISCO follow-up. Patient had a sleep study done September 17, 2019 that did confirm sleep apnea. He was prescribed a CPAP but lost the device. Then he saw Dr. Avina a year ago was given a CPAP prescription but never filled it. He is due for a [id number]. We will start him on his sleep apnea treatment today. Refer to neurology for sleep medicine. When he was using his device, he was getting good sleep. Patient did go to the emergency room recently for crisis. He does follow with psychiatry. Medications are being prescribed by them. Following Dr. Javi Bennett at the [facility]. Past medical history, appointments, medications, allergies reviewed. EXAM: BP 138/78 Pulse 94 Resp 16 Wt 102.9 kg (226 lb 12.8 oz) SpO2 98% BMI 30.76 kg/m? General Appearance: Well appearing, alert, in no acute distress, well-hydrated, well nourished.. Lungs: Lungs clear to auscultation. No wheezing, rhonchi, rales.. Heart: RRR without murmur, gallop, or rubs. No ectopy. ASSESSMENT/PLAN: 1. FRANCISCO (obstructive sleep apnea) - ICD9: 327.23, ICD10: G47.33 (primary diagnosis) -CPAP device prescription given to patient. Patient would like to go to his own [employer]. We will have him follow-up with sleep medicine in 2 to 3 months. - CPAP - CONSULT TO SLEEP MEDICINE - ADULT 2. Bipolar affective disorder, remission status unspecified (HCC) - ICD9: 296.80, ICD10: F31.9 -Continue following with psychiatry Kalie Arora APRN.[employer]ED [employer]ARD PANELS PLATER This note was partly generated using [employer] voice recognition dictation and may contain some misspelled or inaccurate words missed on review. [facility] 08-25-2022 History of Presen t illness Narrative Chief Complaint Patient presents with: Follow Up For: New script for CPAP machine; insurance needs updated face to face HPI Tyson Cobb is a 37 year old male who presents here today for Chronic Medical Conditions. follow up for FRANCISCO. Patient is here for FRANCISCO follow-up. Patient had a sleep study done September 17, 2019 that did confirm sleep apnea. He was prescribed a CPAP but lost the device. Then he saw Dr. Avina a year ago was given a CPAP prescription but never filled it. He is due for a [id number]. We will start him on his sleep apnea treatment today. Refer to neurology for sleep medicine. When he was using his device, he was getting good sleep. Patient did go to the emergency room recently for crisis. He does follow with psychiatry. Medications are being prescribed by them. Following Dr. Javi Bennett at the [facility]. Past medical history, appointments, medications, allergies reviewed. EXAM: BP 138/78 Pulse 94 Resp 16 Wt 102.9 kg (226 lb 12.8 oz) SpO2 98% BMI 30.76 kg/m General Appearance: Well appearing, alert, in no acute distress, well-hydrated, well nourished.. Lungs: Lungs clear to auscultation. No wheezing, rhonchi, rales.. Heart: RRR without murmur, gallop, or rubs. No ectopy. ASSESSMENT/PLAN: 1. FRANCISCO (obstructive sleep apnea) - ICD9: 327.23, ICD10: G47.33 (primary diagnosis) -CPAP device prescription given to patient. Patient would like to go to his own [employer]. We will have him follow-up with sleep medicine in 2 to 3 months. - CPAP - CONSULT TO SLEEP MEDICINE - ADULT 2. Bipolar affective disorder, remission status unspecified (HCC) - ICD9: 296.80, ICD10: F31.9 -Continue following with psychiatry Kalie Arora APRN.CNP This note was partly generated using [employer] voice recognition dictation and may contain some misspelled or inaccurate words missed on review. documented in this encounter [facility] 08-25-2022 Instructions Kaliedeep Arora APRN.CNP - 08/25/2022 11:40 AM EDT New CPAP prescription given. Follow up with neurology in 3 months. Kalie Arora APRN.CNP documented in this encounter [facility] 07-17-2022 Note HNO ID: [id number] Author: Kalie Arora APRN.CNP Service: ? Author Type: Nurse Practitioner Type: Progress Notes Filed: 07/17/2022 8:13 AM Note Text: Chief Complaint Patient presents with: Acute Visit HPI Tyson Cobb is a 37 year old male who presents here today for Above Complaints. Patient here for complaints of diarrhea. Duration is greater than 1 week. Described as loose stools. Not watery. Sometimes he feels like he is not finishing after taking. Will have a formed stool occasionally. No abdominal pain. No nausea. Will feel full at times. No problems with constipation. No antibiotic use. No fevers or chills. No blood present in stools. He is prescribed omeprazole 20 mg. This is not a new medication. Not on any of his medications for mental health anymore. States that his psychiatrist pulled him off all his medications. No following with counseling. Past medical history, appointments, medications, allergies reviewed. EXAM: BP 127/83 Pulse 97 Temp 36.9 ?C (98.5 ?F) (Left Tympanic) Resp 16 Wt 108 kg (238 lb) SpO2 96% BMI 32.28 kg/m? General Appearance: Well appearing, alert, in no acute distress, well-hydrated, well nourished.. Lungs: Lungs clear to auscultation. No wheezing, rhonchi, rales.. Heart: RRR without murmur, gallop, or rubs. No ectopy. Abdomen: Normal abdominal exam, Abdomen soft, non-tender. Bowel sounds normal. No masses, organomegaly. ASSESSMENT/PLAN: 1. Passage of loose stools - ICD9: 787.7, ICD10: R19.5 - Not really diarrhea. Exam normal. Trial use of benefiber 1-2 teaspoons a day. He will go to [employer] to get [employer] brand as this is more affordable. Discussed increasing water intake. Kalie Arora APRN.FLORENTIN RTO as needed if not improving over the next month. This note was partly generated using [employer] voice recognition dictation and may contain some misspelled or inaccurate words missed on review. [facility] 07-17-2022 History of Presen t illness Narrative Chief Complaint Patient presents with: Acute Visit HPI Tyson Cobb is a 37 year old male who presents here today for Above Complaints. Patient here for complaints of diarrhea. Duration is greater than 1 week. Described as loose stools. Not watery. Sometimes he feels like he is not finishing after taking. Will have a formed stool occasionally. No abdominal pain. No nausea. Will feel full at times. No problems with constipation. No antibiotic use. No fevers or chills. No blood present in stools. He is prescribed omeprazole 20 mg. This is not a new medication. Not on any of his medications for mental health anymore. States that his psychiatrist pulled him off all his medications. No following with counseling. Past medical history, appointments, medications, allergies reviewed. EXAM: BP 127/83 Pulse 97 Temp 36.9 C (98.5 F) (Left Tympanic) Resp 16 Wt 108 kg (238 lb) SpO2 96% BMI 32.28 kg/m General Appearance: Well appearing, alert, in no acute distress, well-hydrated, well nourished.. Lungs: Lungs clear to auscultation. No wheezing, rhonchi, rales.. Heart: RRR without murmur, gallop, or rubs. No ectopy. Abdomen: Normal abdominal exam, Abdomen soft, non-tender. Bowel sounds normal. No masses, organomegaly. ASSESSMENT/PLAN: 1. Passage of loose stools - ICD9: 787.7, ICD10: R19.5 - Not really diarrhea. Exam normal. Trial use of benefiber 1-2 teaspoons a day. He will go to [employer] to get [employer] brand as this is more affordable. Discussed increasing water intake. Kalie Arora APRN.[employer]EL[employer]ATER RTO as needed if not improving over the next month. This note was partly generated using [employer] voice recognition dictation and may contain some misspelled or inaccurate words missed on review. documented in this encounter [facility] 07-17-2022 Instructions Kalie Arora APRN.CNP - 07/17/2022 8:00 AM EDT Trial 2 teaspoons of Benefiber with water or juice 1-2 times daily. Can increase to 3 times daily if needing. Drink plenty of water. Follow up if not improving in 1 month. Kalie Arora APRN.CNP documented in this encounter [facility] 05-04-2022 Note HNO ID: [id number] Author: Falguni Wetzel APRN.CNP Service: ? Author Type: Nurse Practitioner Type: Progress Notes Filed: 05/04/2022 7:30 AM Note Text: This is a 37 year old male who presents today with: Patient presents with: Acute Visit: Allergies HISTORY OF PRESENT ILLNESS: Tyson Cobb is a 37 year old male. Patient presents with: Acute Visit: Allergies Here in the office to discuss allergies. Increase in seasonal allergy symptoms. Sneezing, watery eyes, and rhinorrhea. Currently taking Staci, started it yesterday. No cough, SOB, or wheezing. Has tried Claritin in the past. PAST MEDICAL HISTORY: PAST MEDICAL HISTORY Diagnosis Date Asthma EXERCISE INDUCED GERD (gastroesophageal reflux disease) Nightmares FRANCISCO (obstructive sleep apnea) Psychiatric disorder BIPOLAR; SCHIZOAFFECTIVE D/O PAST SURGICAL HISTORY Procedure Laterality Date PAST SURGICAL HISTORY OF wisdom teeth ALLERGIES Patient has no known allergies. MEDICATIONS Current Outpatient Medications Medication Sig PARoxetine (PAXIL) 40 mg tablet Take 40 mg by mouth once daily. (Patient not taking: Reported on 02/19/2022) QUEtiapine (SEROQUEL) 50 mg tablet Take 50 mg by mouth twice daily. (Patient not taking: Reported on 02/19/2022) busPIRone HCl 30 mg tablet Take 1 tablet by mouth twice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
[2023-06-10] MEDS: hydrOXYzine PAM 25 MG Capsule PO (08:51)
[2023-06-10 08:54] VITALS: BP 103/71; PULSE 74; RESP 17; O2SAT 96
--- NOTE | 2023-06-10 09:18 | ED.RN ---
pt upset on dc states modest[place] never had a dr not treat my anxiety. modesta always gotten ativan . dr explained rationale for plan of care, reinforced
== END 2023-06-10 09:20 | disposition home or self-care (01) ==
PROVIDERS: Emergency Provider Student in an Organized Health Care Education/Training Program; PCP Family Medicine; Visit Provider Student in an Organized Health Care Education/Training Program
DX: H61.22 Impacted cerumen, left ear (principal); R42 Dizziness and giddiness; R55 Syncope and collapse; F17.210 Nicotine dependence, cigarettes, uncomplicated; F41.9 Anxiety disorder, unspecified; Z79.899 Other long term (current) drug therapy; K21.9 Gastro-esophageal reflux disease without esophagitis
CPT/HCPCS: 71045; 80048; 84484; 85025; 93005; 96360; 99285

== ENCOUNTER 2023-06-12 02:20 | Emergency (ER) | payer MEDICARE, MEDICAID, SELFPAY ==
[2023-06-12 02:23] VITALS: BP 139/102; PULSE 106; RESP 18; TEMP 36.6; O2SAT 100; BMI 28.3
--- NOTE | 2023-06-12 02:43 | EX.ED.DYSGE1 ---
HPI <Dr. Monty Mendoza MD - Last Filed: 06/12/23 10:35> History of Present Illness Chief Complaint: Anxiety Detail of Chief Complaint: Anxiousness, restlessness Informant: patient Onset/Context/Timing Onset: Days Context: - (Does not recall) Timing: Waxes and wanes Quality: Feeling anxious and restless Location: Generalized Current Severity: Moderate Maximum Severity: Severe Worsened by: Patient denies illicit drug use Relieved by: Nothing Associated Symptoms Associated Symptoms: Nausea Narrative Narrative: Patient is a 38-year-old male. He has history of psychiatric disorder. He has been diagnosed with paranoia and schizophrenia. States his recent hospitalization he was diagnosed with borderline personality disorder. Patient reports compliance with meds. Patient denies headache, visual, ocular auditory symptoms. Patient Nuys chest pain. He complains of some intermittent shortness of breath. He does endorse nausea without vomiting diarrhea. He denies urologic symptoms. He states he has not used methamphetamine for greater than 10 days. He apparently was at a facility in [place] where he was diagnosed with borderline personality disorder. His meds were changed. Patient was seen June 07 for anxiety. Patient was seen June 01 for detox from methamphetamine. On neither occasion was a talk screen obtained. He has several ER visits the past 12 months. Prior similar symptoms: Yes Recent Illness/Hospitalization: Yes (Per patient outside facility) [facility] <Dr. Monty Mendoza MD - Last Filed: 06/12/23 10:35> [facility] Medical History Anxiety Bipolar disorder Depression GERD (gastroesophageal reflux disease) Panic attack Severe dextromethorphan use disorder Sleep apnea Home Medications gabapentin 100 mg capsule 100 mg PO TID 09/20/22 [History Last Taken Unknown] prazosin 1 mg capsule 2 mg PO QHS 09/20/22 [History Last Taken Unknown] clonazepam 0.5 mg tablet 0.5 mg PO DAILY 12/07/22 [History Last Taken Unknown] carbamide peroxide 6.5 % ear drops (Debrox) 5 drp EACH EAR DAILY 4 days #15 mL 06/10/23 [Rx Last Taken Unknown] hydroxyzine pamoate 25 mg capsule (Vistaril) 25 mg PO TID PRN anxiety #20 caps 06/10/23 [Rx Last Taken Unknown] mirtazapine 15 mg tablet (Remeron) 15 mg PO QHS 06/10/23 [History Last Taken Unknown] Allergy/AdvReac Type Severity Reaction Status Date / Time No Known Allergies Allergy Verified 06/12/23 02:30 Social History household members: none and other details: Patient reports he has children and recently went degeneration so he could Smoking Status: Current every day smoker tobacco type: cigarettes ROS <Dr. Monty Mendoza MD - Last Filed: 06/12/23 10:35> ROS ED Constitutional Constitutional ED: Reports sweats; Denies chills, fever(s), subjective or weight loss Eyes Eyes: Denies blurry vision, change in vision or diplopia ENT ENT ED: Denies ear pain, rhinorrhea or sore throat Cardiovascular Cardiovascular: Reports palpitations and racing heartbeat; Denies chest pain, orthopnea or paroxysmal nocturnal dyspnea Respiratory/Chest Respiratory/Chest: Reports dyspnea; Denies cough, dyspnea on exertion, orthopnea, paroxysmal nocturnal dyspnea or sputum Gastrointestinal Gastrointestinal: Reports nausea; Denies abdominal pain, constipation, diarrhea, melena or vomiting Genitourinary Genitourinary ED: Denies dysuria, hematuria or urinary frequency Musculoskeletal Musculoskeletal: Denies arthralgias, back pain, myalgias or neck pain Integumentary Reports other Details: Several healed scars from prior self-inflicted injuries noted ; Denies rash Neurologic Neurologic: Denies headache(s), paresthesias or weakness Psychiatric Psychiatric: Reports anxiety; Denies suicidal ideation or suicidal thoughts Hematologic/Lymphatic Hematologic/Lymphatic: Reports systems reviewed and no addt'l complaints, except as documented EXAM <Dr. Monty Mendoza MD - Last Filed: 06/12/23 10:35> Physical Exam Const Vital Signs: 06/12/23 02:23 06/12/23 02:47 06/12/23 05:00 Temperature 97.8 F Temperature Source Oral Pulse Rate 106 H 98 Respiratory Rate 18 14 18 Blood Pressure 139/102 H 137/88 H Blood Pressure Mean 114 104 Pulse Ox 100 97 Oxygen Delivery Method Room Air Room Air 06/12/23 06:00 06/12/23 08:05 Temperature 97.4 F L Temperature Source Pulse Rate 99 Respiratory Rate 18 16 Blood Pressure 134/86 H Blood Pressure Mean 102 Pulse Ox 99 Oxygen Delivery Method Positive well nourished and well developed Constitutional Narrative: Patient is hyperactive. He is restless. His speech is pressured. General Appearance ED: well developed; Negative for cyanotic or diaphoretic HEENT Reports dry mucous membranes HEENT Narrative: Head is atraumatic and normocephalic. Ears normal. Nares patent. Posterior pharynx is normal. Mouth ED: Yes dry mucous membranes Mouth: dry mucous membranes Eyes PERRL and EOMs intact bilaterally Eyes Narrative: There is no nystagmus. General Eye ED: Negative for pale conjunctiva or scleral icterus Neck no lymphadenopathy, supple and no JVD Chest Wall inspection of chest normal and palpation of chest normal Resp normal respiratory effort and clear to auscultation bilaterally Cardio regular rhythm, S1 normal heart sound, S2 normal heart sound and no murmurs Rate: tachycardic GI normal to inspection, nondistended, normoactive bowel sounds, non-tender, non-distended and no masses; Negative for hepatosplenomegaly Back/Spine no CVA tenderness Extremity Extremity Narrative: Scars from prior self-inflicted wounds. Otherwise unremarkable Neuro oriented x3, CN's II-XII intact bilaterally and no sensory deficits noted Sensorium / Orientation: alert Motor Exam: strength 5/5 throughout Psych Psych Narrative: Patient is hyperactive with pressured speech loose association and anxiety. He states he is restless. Patient is fidgety and cannot sit still. He also reports being overstimulated. Skin no rashes or lesions noted, no wounds and skin turgor normal Skin Narrative: Scars noted from prior remote self-inflicted injuries <Dr. Fito Nunn MD - Last Filed: 06/12/23 07:40> Physical Exam Const Vital Signs: 06/12/23 02:23 06/12/23 02:47 06/12/23 05:00 Temperature 97.8 F Temperature Source Oral Pulse Rate 106 H 98 Respiratory Rate 18 14 18 Blood Pressure 139/102 H 137/88 H Blood Pressure Mean 114 104 Pulse Ox 100 97 Oxygen Delivery Method Room Air Room Air 06/12/23 06:00 06/12/23 08:05 Temperature 97.4 F L Temperature Source Pulse Rate 99 Respiratory Rate 18 16 Blood Pressure 134/86 H Blood Pressure Mean 102 Pulse Ox 99 Oxygen Delivery Method [facility] <Dr. Monty Mendoza MD - Last Filed: 06/12/23 10:35> MDM MDM Narrative Medical decision making narrative: Patient may have an acute psychosis due to psychiatric disorder. This could represent hypomania since he has reported history of bipolar affective disorder, this could be a drug-induced psychosis. There is component of paranoia. Since patient has history of methamphetamine use tachycardic hyperreflexic will treat with IV Ativan. Ativan was chosen since we do not have IV Valium. History & Record Review Additional record(s) reviewed:: Prior ED visit (Summarized in the HPI narrative) and Prior labs Lab Data Attestation: I reviewed the patient's lab results. Lab results narrative: CBC is unremarkable. Comprehensive metabolic panel was elevated creatinine 1.31. BUN and is normal. CO2 anion gap is normal. Tox is positive for cannabis. Alcohol is negative. Labs: Laboratory Results - last 24 hr 06/12/23 02:50 WBC 6.1 RBC 4.34 L Hgb 13.2 Hct 38.1 L MCV 87.8 MCH 30.4 MCHC 34.6 RDW Std Deviation 43.3 RDW Coeff of Gabriel 13.4 Plt Count 373 MPV 7.9 Immature Gran % (Auto) 0.500 Neut % (Auto) 53.7 Lymph % (Auto) 37.1 [place] % (Auto) 7.7 Eos % (Auto) 0.5 Baso % (Auto) 0.5 Absolute Neuts (auto) 3.3 Absolute Lymphs (auto) 2.28 Nucleated RBC % 0 Sodium 143 Potassium 3.8 Chloride 111 H Carbon Dioxide 28.0 Anion Gap 4 L BUN 16 Creatinine 1.31 H Estim Creat Clear Calc 91.40 Est GFR (MDRD) Af Amer 79 Est GFR (MDRD) Non-Af 65 BUN/Creatinine Ratio 12.2 Glucose 81 Calcium 8.7 Total Bilirubin 0.40 AST 16 ALT 20 Alkaline Phosphatase 55 Total Protein 6.7 Albumin 3.5 Globulin 3.2 Albumin/Globulin Ratio 1.1 Urine Opiates Screen NEGATIVE Urine Methadone Screen NEGATIVE Ur Barbiturates Screen NEGATIVE Ur Phencyclidine Scrn NEGATIVE Ur Amphetamines Screen NEGATIVE MDMA (Ecstasy) Screen NEGATIVE U Benzodiazepines Scrn NEGATIVE Urine Cocaine Screen NEGATIVE U Cannabinoids Screen POSITIVE H Ur Drug Screen Comment Ethyl Alcohol < 3.0 Since patient's tox screen is negative other than cannabis suspect his behavior is related to his bipolar affective disorder. He is presently on no meds for bipolar disorder. Treatment and Re-Evaluation :: Patient was reassessed at 0344. Patient is somnolent from the Ativan. Will reassess in the morning. <Dr. Fito Nunn MD - Last Filed: 06/12/23 07:40> [facility] Lab Data Labs: Laboratory Results - last 24 hr 06/12/23 02:50 WBC 6.1 RBC 4.34 L Hgb 13.2 Hct 38.1 L MCV 87.8 MCH 30.4 MCHC 34.6 RDW Std Deviation 43.3 RDW Coeff of Gabriel 13.4 Plt Count 373 MPV 7.9 Immature Gran % (Auto) 0.500 Neut % (Auto) 53.7 Lymph % (Auto) 37.1 [place] % (Auto) 7.7 Eos % (Auto) 0.5 Baso % (Auto) 0.5 Absolute Neuts (auto) 3.3 Absolute Lymphs (auto) 2.28 Nucleated RBC % 0 Sodium 143 Potassium 3.8 Chloride 111 H Carbon Dioxide 28.0 Anion Gap 4 L BUN 16 Creatinine 1.31 H Estim Creat Clear Calc 91.40 Est GFR (MDRD) Af Amer 79 Est GFR (MDRD) Non-Af 65 BUN/Creatinine Ratio 12.2 Glucose 81 Calcium 8.7 Total Bilirubin 0.40 AST 16 ALT 20 Alkaline Phosphatase 55 Total Protein 6.7 Albumin 3.5 Globulin 3.2 Albumin/Globulin Ratio 1.1 Urine Opiates Screen NEGATIVE Urine Methadone Screen NEGATIVE Ur Barbiturates Screen NEGATIVE Ur Phencyclidine Scrn NEGATIVE Ur Amphetamines Screen NEGATIVE MDMA (Ecstasy) Screen NEGATIVE U Benzodiazepines Scrn NEGATIVE Urine Cocaine Screen NEGATIVE U Cannabinoids Screen POSITIVE H Ur Drug Screen Comment Ethyl Alcohol < 3.0 Treatment and Re-Evaluation Comments:: Patient checked out to me. Crisis evaluated and discussed with me. They do not think the patient needs to be think slipped or admitted emergently to psychiatry. From the report given to me I think that is reasonable. Furthermore the patient has a psychiatry appointment and follow-up this coming Wednesday and intends to keep that, suggesting that the person he is scheduled to see actually gets me. Patient was not acutely suicidal and I think discharging him with follow-up instructions is reasonable. He is clinically doing well right now. Discharge Plan Triage Chief Complaint: Anxiety ED Provider: Monty Mendoza Dx/Rx/DC Orders Clinical Impression: Anxiety attack, Borderline personality disorder, History of bipolar disorder Instructions: Anxiety Disorders Tx Prescriptions: No Action prazosin 1 mg capsule 2 mg PO QHS gabapentin 100 mg capsule 100 mg PO TID clonazepam 0.5 mg tablet 0.5 mg PO DAILY mirtazapine [Remeron] 15 mg tablet 15 mg PO QHS Debrox 6.5 % drops 5 drp EACH EAR DAILY 4 Days Qty: 15 0RF hydroxyzine pamoate [Vistaril] 25 mg capsule 25 mg PO TID PRN (Reason: anxiety) Qty: 20 0RF Primary Care Provider: William Castillo Referrals: Counseling,Center [Group of Physicians] - Keep Suri appointment William Castillo MD [Primary Care Provider] - Disposition Disposition: Home, Self Care Discharge Date/Time: 06/12/23 08:07
[2023-06-12] MEDS: Lorazepam 2 MG/ML WCH Syringe IM (02:44)
[2023-06-12 02:47] VITALS: BP 137/88; PULSE 98; RESP 14; O2SAT 97
--- OUTSIDE RECORDS SUMMARY | 2023-06-12 02:50 | XMS RPT_ITS | CCD ---
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 [facility] [place] [facility] Diagnosis Seasonal allergies- Primary Allergic rhinitis, cause unspecified [facility] [place] [facility]* Diagnosis Passage of loose stools- Primary Diarrhea [facility] [place] [facility]* Diagnosis FRANCISCO (obstructive sleep apnea)- Primary Obstructive sleep apnea (adult) (pediatric) Bipolar affective disorder, remission status unspecified (HCC) Polysubstance (including opioids) dependence, daily use (HCC) Combinations of opioid type drug with any other drug dependence, continuous Schizoaffective disorder, unspecified type (HCC) [facility] [place] [facility]* Diagnosis Palpitations- Primary Tachycardia Tachycardia, unspecified Polysubstance (including opioids) dependence, daily use (HCC) Combinations of opioid type drug with any other drug dependence, continuous Overdose of undetermined intent, initial encounter [facility] [place] [facility]* Diagnosis Hospital discharge follow-up- Primary Other follow-up examination Benzodiazepine withdrawal without complication (HCC) FRANCISCO (obstructive sleep apnea) Obstructive sleep apnea (adult) (pediatric) documented in this encounter [facility] Summary Purpose Family History No Family History Records FoundNo Family History Records FoundNo Family History Records FoundNo Family History Records FoundNo Family History Records FoundNo Family History Records FoundNo Family History Records Found Advance Directives No Advanced Directives Records FoundDocuments on File Type Date Recorded 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 LOGISTICS ANALYST [address] [place] [address] Referral ID Status Reason Start Date Expiration Date Visits Requested Visits Authorized [id number] Authorized PCP Requested Referral 05/04/2022 05/04/2023 1 1 Specialty Diagnoses / Procedures Referred By Contac t Referred To Contact Diagnoses FRANCISCO (obstructive sleep apnea) Procedures CONSULT TO SLEEP MEDICINE - ADULT OFFICE/OUTPATIENT [facility] 60-74 MINUTES Kalie Arora APRN.SR. LOGISTICS ANALYST [address] [place] [address] Referral ID Status Reason Start Date Expiration Date Visits Requested Visits Authorized [id number] Authorized PCP Requested Referral 11/25/2022 08/25/2023 1 1 Specialty Diagnoses / Procedures Referred By Contac t Referred To Contact Diagnoses FRANCISCO (obstructive sleep apnea) Procedures CONSULT TO SLEEP MEDICINE - ADULT OFFICE/OUTPATIENT [facility] 60-74 MINUTES Falguni Wetzel APRN.SR. LOGISTICS ANALYST [address] [place] [address] Referral ID Status Reason Start Date Expiration Date Visits Requested Visits Authorized [id number] Pending Review PCP Requested Referral 12/08/2022 12/08/2023 1 1 Additional Source Comments (unrecognized sect ion and content) No Status Records FoundNo Status Records FoundNo Status Records FoundNo Status Records FoundNo Status Records FoundNo Status Records FoundNo Status Records Found INFORMATION SOURCE (unrecogn ized section and content) DATE CREATED AUTHOR AUTHOR'S ORGANIZ ATION 06/28/2021 [facility] DATE CREATED AUTHOR AUTHOR'S ORGANIZ ATION 07/07/2021 [facility] DATE CREATED AUTHOR AUTHOR'S ORGANIZ ATION 09/19/2021 [facility] DATE CREATED AUTHOR AUTHOR'S ORGANIZ ATION 11/26/2022 [facility] DATE CREATED AUTHOR AUTHOR'S ORGANIZ ATION 01/17/2023 [facility] DATE CREATED AUTHOR AUTHOR'S ORGANIZ ATION 04/01/2023 [facility] Source Comments (unrecognize d section and content) In the event this informatio n is protected by the Federal Confidentiality of Alcohol and Drug Abuse Patient Records regulations: The Federal rules restrict any use of the information to criminally investigate or prosecute any alcohol or drug abuse patient.[facility] the event this information is protected by the Federal Confidentiality of Alcohol and Drug Abuse Patient Records regulations: The Federal rules restrict any use of the information to criminally investigate or prosecute any alcohol or drug abuse patient.[facility] the event this information is protected by the Federal Confidentiality of Alcohol and Drug Abuse Patient Records regulations: The Federal rules restrict any use of the information to criminally investigate or prosecute any alcohol or drug abuse patient.[facility] Company[facility] the event this information is protected by the Federal Confidentiality of Alcohol and Drug Abuse Patient Records regulations: The Federal rules restrict any use of the information to criminally investigate or prosecute any alcohol or drug abuse patient.[facility] the event this information is protected by the Federal Confidentiality of Alcohol and Drug Abuse Patient Records regulations: The Federal rules restrict any use of the information to criminally investigate or prosecute any alcohol or drug abuse patient.[facility] Company[facility] the event this information is protected by the Federal Confidentiality of Alcohol and Drug Abuse Patient Records regulations: The Federal rules restrict any use of the information to criminally investigate or prosecute any alcohol or drug abuse patient.[facility] Company[facility] the event this information is protected by the Federal Confidentiality of Alcohol and Drug Abuse Patient Records regulations: The Federal rules restrict any use of the information to criminally investigate or prosecute any alcohol or drug abuse patient.[facility] Company[facility] the event this information is protected by the Federal Confidentiality of Alcohol and Drug Abuse Patient Records regulations: The Federal rules restrict any use of the information to criminally investigate or prosecute any alcohol or drug abuse patient.[facility] Company[facility] the event this information is protected by the Federal Confidentiality of Alcohol and Drug Abuse Patient Records regulations: The Federal rules restrict any use of the information to criminally investigate or prosecute any alcohol or drug abuse patient.[facility] Company[facility] the event this information is protected by the Federal Confidentiality of Alcohol and Drug Abuse Patient Records regulations: The Federal rules restrict any use of the information to criminally investigate or prosecute any alcohol or drug abuse patient.[facility] Company[facility] the event this information is protected by the Federal Confidentiality of Alcohol and Drug Abuse Patient Records regulations: The Federal rules restrict any use of the information to criminally investigate or prosecute any alcohol or drug abuse patient.[facility] Reason for Visit (unrecogniz ed section and [...] Care Teams (unrecognized sec tion and content) Wood Inspector Relationship Specialty Start Date End Date Alan Avina MD [address] [place] [address] PCP - General Family Practice 01/11/14 Wood Inspector Relationship Specialty Start Date End Date Alan Avina MD [address] [place] [address] PCP - General Family Practice 01/11/14 Wood Inspector Relationship Specialty Start Date End Date Alan Avina MD [address] [place] [address] PCP - General Family Medicine 01/11/14 Wood Inspector Relationship Specialty Start Date End Date Alan Avina MD [address] [place] [address] PCP - General Family Medicine 01/11/14 Wood Inspector Relationship Specialty Start Date End Date Alan Avina MD [address], [place] [address] PCP - General Family Medicine 01/11/14 Wood Inspector Relationship Specialty Start Date End Date Alan Avina MD [address] [place] [address] PCP - General Family Medicine 01/11/14 Wood Inspector Relationship Specialty Start Date End Date Alan Avina MD [address] [place] [address] PCP - General Family Medicine 01/11/14 Wood Inspector Relationship Specialty Start Date End Date Alan Avina MD [address] [place] [address] PCP - General Family Medicine 01/11/14 Wood Inspector Relationship Specialty Start Date End Date Alan Avina MD [address] [place] [address] PCP - General Family Medicine 01/11/14 Wood Inspector Relationship Specialty Start Date End Date Alan Avina MD [address] [place] [address] PCP - General Family Medicine 01/11/14 Goals [...] BE BASED ON THE PRIMARY CLINICAL RECORDS. [facility] [employer] [facility]. provides no warranty or guarantee of the accuracy or completeness of information in this document.
[2023-06-12 02:57] LABS: Absolute Lymphocyte Count 2.28 X10^3/uL (0.83-4.51); Absolute Neutrophil Count 3.3 X10^3/uL (2.0-7.7); Basophil# 0.03 X10^3/uL; Basophil% 0.5 % (0-1); Eosinophil# 0.03 X10^3/uL; Eosinophils% 0.5 % (0-5); Hematocrit 38.1 % (40-54); Hemoglobin 13.2 g/dL (13.0-16.5); Lymphocyte # 2.28 X10^3/ul (0.83-4.51); Lymphocyte % 37.1 % (19-41); Mean Corp Hgb Conc 34.6 g/dL (32-36); Mean Corpuscular Hgb 30.4 pg (27.0-32.0); Mean Corpuscular Volume 87.8 fL (80-94); Mean Platelet Vol. 7.9 fl (6.2-12.0); Monocyte# 0.47 X10^3/uL; Monocyte% 7.7 % (0-10); NRBC Flagged by Analyzer 0 % (0-5); Neutrophil % 53.7 % (47-70); Platelet Count 373 K/mm3 (150-450); RBC Distribution Width CV 13.4 % (11.6-14.6); RBC Distribution Width SD 43.3 fl (35.1-43.9); Red Blood Count 4.34 M/mm3 (4.6-6.2); White Blood Count 6.1 K/mm3 (4.4-11.0)
[2023-06-12 03:13] LABS: Alcohol, Blood (Medical)-Serum < 3.0 mg/dL
[2023-06-12 03:17] LABS: ALB/GLOB Ratio 1.1 RATIO (0.9-2.4); AST(SGOT) 16 U/L (15-37); Alanine Aminotransfer ALT/SGPT 20 U/L (16-61); Albumin, Serum 3.5 g/dL (3.2-5.0); Alkaline Phosphatase 55 U/L (45-117); Amphetamine Urine VISTA NEGATIVE (<1000 ng/mL); Anion Gap 4 (5-15); BUN 16 mg/dL (7-18); BUN/Creat Ratio 12.2 RATIO (10-20); Barbiturate Urine VISTA NEGATIVE (< 200 ng/mL); Benzodiazepine Urine VISTA NEGATIVE (< 200 ng/mL); Calcium,Total 8.7 mg/dL (8.5-10.1); Chloride 111 mmol/L (98-107); Cocaine Urine VISTA NEGATIVE (< 300 ng/mL); Creatinine, Serum 1.31 mg/dL (0.70-1.30); EST Glomerular Filtration Rate 65 mL/min (>60); Ecstacy Urine VISTA NEGATIVE (< 500 ng/mL); Est Glom Filt Rate - Afr Amer 79 mL/min (>60); Globulin 3.2 g/dL (2.2-4.2); Glucose 81 mg/dL (74-106); Methadone Urine VISTA NEGATIVE (< 300 ng/mL); PCP Urine VISTA NEGATIVE (< 25 ng/mL); Potassium 3.8 mmol/L (3.5-5.1); Protein, Total 6.7 g/dL (6.4-8.2); Sodium Level 143 mmol/L (136-145); THC Urine VISTA POSITIVE (< 50 ng/mL); Vista UDS pH Range 4
[2023-06-12 05:00] VITALS: RESP 18
--- NOTE | 2023-06-12 05:41 | ED.RN ---
PER MD CRISIS CALLED TO EVALUATE PT, CHART FAXED.
[2023-06-12 06:00] VITALS: RESP 18
[2023-06-12 08:05] VITALS: BP 134/86; PULSE 99; RESP 16; TEMP 36.3; O2SAT 99
== END 2023-06-12 08:07 | disposition home or self-care (01) ==
PROVIDERS: Emergency Provider Emergency Medicine; PCP Family Medicine; Visit Provider Emergency Medicine
DX: F60.3 Borderline personality disorder (principal); F20.9 Schizophrenia, unspecified; F31.9 Bipolar disorder, unspecified; F22 Delusional disorders; F41.9 Anxiety disorder, unspecified; F17.210 Nicotine dependence, cigarettes, uncomplicated; R40.0 Somnolence; R11.0 Nausea; R45.1 Restlessness and agitation; K21.9 Gastro-esophageal reflux disease without esophagitis; R06.00 Dyspnea, unspecified
CPT/HCPCS: 80053; 80307; 80320; 85025; 96372; 99284; G0480

== ENCOUNTER 2023-06-13 13:28 | Emergency (ER) | payer MEDICARE, MEDICAID, SELFPAY ==
[2023-06-13 13:52] VITALS: BP 146/91; PULSE 129; RESP 20; TEMP 36.3; O2SAT 98; BMI 27.3
--- NOTE | 2023-06-13 14:02 | ED.RN ---
Patient decided to go back out to the waiting room to get his phone. Security went with him. I walked out to see if patient coming back and security informed me that he was leaving AMA
--- OUTSIDE RECORDS SUMMARY | 2023-06-13 14:06 | XMS RPT_ITS | CCD ---
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 Disposition Date: 06/28/21 Disposition Time: 2338 SIGNATURE: DELANO Ramsay PATIENT NAME: Tyson Cobb DATE: June 28, 2021 TIME: 8:19 PM documented in this encounter [facility] Evaluation + Plan note [facility] Diagnosis Seasonal allergies- Primary Allergic rhinitis, cause unspecified [facility] Diagnosis Passage of loose stools- Primary Diarrhea [facility] Diagnosis FRANCISCO (obstructive sleep apnea)- Primary Obstructive sleep apnea (adult) (pediatric) Bipolar affective disorder, remission status unspecified (HCC) Polysubstance (including opioids) dependence, daily use (HCC) Combinations of opioid type drug with any other drug dependence, continuous Schizoaffective disorder, unspecified type (HCC) [facility] Diagnosis Palpitations- Primary Tachycardia Tachycardia, unspecified Polysubstance (including opioids) dependence, daily use (HCC) Combinations of opioid type drug with any other drug dependence, continuous Overdose of undetermined intent, initial encounter [facility] Diagnosis Hospital discharge follow-up- Primary Other follow-up examination Benzodiazepine withdrawal without complication (HCC) FRANCISCO (obstructive sleep apnea) Obstructive sleep apnea (adult) (pediatric) documented in this encounter 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 Advance Directive(s) 06/28/2021 10:28 AM Advance Directive(s) 06/28/2021 6:15 PM Advance Directive(s) 06/28/2021 11:45 PM Health Concerns Infection Onset Date Last Indicated Resolved Time COVID-19 Rule-Out 06/28/2021 06/28/2021 06/28/2021 7:00 PM EDT Reason for Referral Specialty Diagnoses / Procedures Referred By Contac t Referred To Contact Allergy Diagnoses Seasonal allergies Procedures CONSULT TO ALLERGY/IMMUNOLOGY OFFICE/OUTPATIENT [facility] 60-74 MINUTES Falguni Wetzel, GERONIMO.AUTOMOTIVE PARTS COUNTERPERSON [address] [place] [address] Referral ID Status Reason Start Date Expiration Date Visits Requested Visits Authorized [id number] Authorized PCP Requested Referral 05/04/2022 05/04/2023 1 1 Specialty Diagnoses / Procedures Referred By Contac t Referred To Contact Diagnoses FRANCISCO (obstructive sleep apnea) Procedures CONSULT TO SLEEP MEDICINE - ADULT OFFICE/OUTPATIENT [facility] 60-74 MINUTES Kalie Arora APRN.AUTOMOTIVE PARTS COUNTERPERSON [address] [place] [address] Referral ID Status Reason Start Date Expiration Date Visits Requested Visits Authorized [id number] Authorized PCP Requested Referral 11/25/2022 08/25/2023 1 1 Specialty Diagnoses / Procedures Referred By Contac t Referred To Contact Diagnoses FRANCISCO (obstructive sleep apnea) Procedures CONSULT TO SLEEP MEDICINE - ADULT OFFICE/OUTPATIENT [facility] 60-74 MINUTES Falguni Wetzel APRN.AUTOMOTIVE PARTS COUNTERPERSON [address] [place] [address] Referral ID Status Reason Start Date Expiration Date Visits Requested Visits Authorized [id number] Pending Review PCP Requested Referral 12/08/2022 12/08/2023 1 1 Additional Source Comments (unrecognized sect ion and content) No Status Records FoundNo Status Records FoundNo Status Records FoundNo Status Records FoundNo Status Records FoundNo Status Records FoundNo Status Records Found INFORMATION SOURCE (unrecogn ized section and content) DATE CREATED AUTHOR AUTHOR'S ORGANIZ ATION 06/28/2021 [facility] DATE CREATED AUTHOR AUTHOR'S ORGANIZ ATION 07/07/[address] [facility] DATE CREATED AUTHOR AUTHOR'S ORGANIZ ATION 09/19/2021 [facility] DATE CREATED AUTHOR AUTHOR'S ORGANIZ ATION 11/26/2022 [facility] DATE CREATED AUTHOR AUTHOR'S ORGANIZ ATION 01/17/2023 [facility] DATE CREATED AUTHOR AUTHOR'S ORGANIZ ATION 04/01/2023 [facility] Source Comments (unrecognize d section and content) In the event this informatio n is protected by the Federal Confidentiality of Alcohol and Drug Abuse Patient Records regulations: The Federal rules restrict any use of the information to criminally investigate or prosecute any alcohol or drug abuse patient.[facility] the event this information is protected by the Federal Confidentiality of Alcohol and Drug Abuse Patient Records regulations: The Federal rules restrict any use of the information to criminally investigate or prosecute any alcohol or drug abuse patient.[facility] Hospital[facility] the event this information is protected by the Federal Confidentiality of Alcohol and Drug Abuse Patient Records regulations: The Federal rules restrict any use of the information to criminally investigate or prosecute any alcohol or drug abuse patient.[facility] Hospital[facility] the event this information is protected by the Federal Confidentiality of Alcohol and Drug Abuse Patient Records regulations: The Federal rules restrict any use of the information to criminally investigate or prosecute any alcohol or drug abuse patient.[facility] Hospital[facility] the event this information is protected by the Federal Confidentiality of Alcohol and Drug Abuse Patient Records regulations: The Federal rules restrict any use of the information to criminally investigate or prosecute any alcohol or drug abuse patient.[facility] Hospital[facility] the event this information is protected by the Federal Confidentiality of Alcohol and Drug Abuse Patient Records regulations: The Federal rules restrict any use of the information to criminally investigate or prosecute any alcohol or drug abuse patient.[facility] Hospital[facility] the event this information is protected by the Federal Confidentiality of Alcohol and Drug Abuse Patient Records regulations: The Federal rules restrict any use of the information to criminally investigate or prosecute any alcohol or drug abuse patient.[facility] Hospital[facility] the event this information is protected by the Federal Confidentiality of Alcohol and Drug Abuse Patient Records regulations: The Federal rules restrict any use of the information to criminally investigate or prosecute any alcohol or drug abuse patient.[facility] Hospital[facility] the event this information is protected by the Federal Confidentiality of Alcohol and Drug Abuse Patient Records regulations: The Federal rules restrict any use of the information to criminally investigate or prosecute any alcohol or drug abuse patient.[facility] HospitalIn the event this information is protected by the Federal Confidentiality of Alcohol and Drug Abuse Patient Records regulations: The Federal rules restrict any use of the information to criminally investigate or prosecute any alcohol or drug abuse patient.[facility] HospitalIn the event this information is protected by the Federal Confidentiality of Alcohol and Drug Abuse Patient Records regulations: The Federal rules restrict any use of the information to criminally investigate or prosecute any alcohol or drug abuse patient.[facility] Reason for Visit (unrecogniz ed section and [...] Care Teams (unrecognized sec tion and content) Arcade Attendant Relationship Specialty Start Date End Date Alan Avina MD [address] [place] [address] PCP - General Family Practice 01/11/14 Arcade Attendant Relationship Specialty Start Date End Date Alan Avina MD [address] [place] [address] PCP - General Family Practice 01/11/14 Arcade Attendant Relationship Specialty Start Date End Date Aaln Avina MD [address] [place] [address] PCP - General Family Medicine 01/11/14 Arcade Attendant Relationship Specialty Start Date End Date Alan Avina MD [address] [place] [address] PCP - General Family Medicine 01/11/14 Arcade Attendant Relationship Specialty Start Date End Date Alan Avina MD [address] [place], [place] [id number] PCP - General Family Medicine 01/11/14 Arcade Attendant Relationship Specialty Start Date End Date Alan Avina MD [address] [place] [address] PCP - General Family Medicine 01/11/14 Arcade Attendant Relationship Specialty Start Date End Date Alan Avina MD [address] [place] [address] PCP - General Family Medicine 01/11/14 Arcade Attendant Relationship Specialty Start Date End Date Alan Avina MD [address] [place] [address] PCP - General Family Medicine 01/11/14 Arcade Attendant Relationship Specialty Start Date End Date Alan Avina MD [address] [place] [address] PCP - General Family Medicine 01/11/14 Arcade Attendant Relationship Specialty Start Date End Date Alan Avina MD [address] [place] [address] PCP - General Family Medicine 01/11/14 Goals [...] BE BASED ON THE PRIMARY CLINICAL RECORDS. [facility] [employer] [facility]. provides no warranty or guarantee of the accuracy or completeness of information in this document.
== END 2023-06-13 14:02 | disposition left against medical advice (07) ==
LOC: ED 14:02
PROVIDERS: PCP Family Medicine
DX: Z53.21 Procedure and treatment not carried out due to patient leaving prior to being seen by health care provider (principal)

== ENCOUNTER 2023-06-14 14:26 | Emergency (ER) | payer MEDICARE, MEDICAID, SELFPAY ==
[2023-06-14] VITALS (14 sets, daily range): BP systolic 100–173; BP diastolic 55–128; PULSE 69–116; RESP 14–47; TEMP 36.3–36.7; O2SAT 87–100; BMI 28.1
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
[2023-06-14 16:01] LABS: Absolute Lymphocyte Count 2.57 X10^3/uL (0.83-4.51); Basophil# 0.03 X10^3/uL; Basophil% 0.4 % (0-1); Eosinophil# 0.02 X10^3/uL; Eosinophils% 0.2 % (0-5); Hematocrit 40.1 % (40-54); Hemoglobin 14.1 g/dL (13.0-16.5); Lymphocyte # 2.57 X10^3/ul (0.83-4.51); Lymphocyte % 31.7 % (19-41); Mean Corp Hgb Conc 35.2 g/dL (32-36); Mean Corpuscular Hgb 31.2 pg (27.0-32.0); Mean Corpuscular Volume 88.7 fL (80-94); Mean Platelet Vol. 8.2 fl (6.2-12.0); Monocyte# 0.47 X10^3/uL; Monocyte% 5.8 % (0-10); NRBC Flagged by Analyzer 0 % (0-5); Neutrophil # 4.99 X10^3/uL (2.7-7.7); Neutrophil % 61.5 % (47-70); Platelet Count 356 K/mm3 (150-450); RBC Distribution Width CV 13.6 % (11.6-14.6); RBC Distribution Width SD 44.3 fl (35.1-43.9); Red Blood Count 4.52 M/mm3 (4.6-6.2); White Blood Count 8.1 K/mm3 (4.4-11.0)
[2023-06-14] MEDS: Lorazepam 2 MG/ML WCH Syringe 1 MG IM (16:07)
[2023-06-14 16:12] LABS: Anion Gap 4 (5-15); BUN 18 mg/dL (7-18); BUN/Creat Ratio 12.1 RATIO (10-20); Calcium,Total 8.6 mg/dL (8.5-10.1); Chloride 109 mmol/L (98-107); Creatinine, Serum 1.49 mg/dL (0.70-1.30); EST Glomerular Filtration Rate 56 mL/min (>60); Est Glom Filt Rate - Afr Amer 68 mL/min (>60); Estimated Creatinine Clearance 80.09 ml/min; Glucose 123 mg/dL (74-106); Potassium 3.9 mmol/L (3.5-5.1); Sodium Level 139 mmol/L (136-145)
[2023-06-14 16:19] LABS: Alcohol, Blood (Medical)-Serum < 3.0 mg/dL
--- NOTE | 2023-06-14 16:51 | ED.RN ---
pt snoring with pauses. diaphoretic and not able to wake. sats 80%. placed on one rebreather. and monitor respiratory and dr called to bedside. repir. jaw thrust to open airway with nonrebreather sats improved pt woke, with mumbles and slight confusion. able to direct and explain. sats up to 97% ra when awake. pt fell asleep again with snoring and pulse ox dropped to 86%. repositioned pt headplaced on 2l o2 nc. sats 98% while pt mumbling and drowsy but not sleeping.
[2023-06-14 17:07] LABS: Bedside Glucose 71 mg/dL (74-106)
--- NOTE | 2023-06-14 17:54 | ED.RN ---
discussed urine with pt. pt wanted to try to urinate before st cath. asissted to stand at side of bed, urinated. assisted back to bed. assisted position of comfort and let him know plan of care process and meal ordered.
[2023-06-14] MEDS: Haloperidol Lactate 5 MG/ML Vial IM (18:03)
[2023-06-14 18:25] LABS: Amphetamine Urine VISTA NEGATIVE (<1000 ng/mL); Barbiturate Urine VISTA NEGATIVE (< 200 ng/mL); Benzodiazepine Urine VISTA NEGATIVE (< 200 ng/mL); Cocaine Urine VISTA NEGATIVE (< 300 ng/mL); Ecstacy Urine VISTA NEGATIVE (< 500 ng/mL); Methadone Urine VISTA NEGATIVE (< 300 ng/mL); PCP Urine VISTA NEGATIVE (< 25 ng/mL); THC Urine VISTA POSITIVE (< 50 ng/mL); Vista UDS pH Range 5
--- OUTSIDE RECORDS SUMMARY | 2023-06-14 20:59 | XMS RPT_ITS | CCD ---
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 [facility] Purpose Family History No Family History Records FoundNo Family History Records FoundNo Family History Records FoundNo Family History Records FoundNo Family History Records FoundNo Family History Records FoundNo Family History Records Found Advance Directives No Advanced Directives Records FoundDocuments on File Type Date Recorded 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 Advance Directive(s) 06/28/2021 10:28 AM Advance Directive(s) 06/28/2021 6:15 PM Advance Directive(s) 06/28/2021 11:45 PM Health Concerns Infection Onset Date Last Indicated Resolved Time COVID-19 Rule-Out 06/28/2021 06/28/2021 06/28/2021 7:00 PM EDT Reason for Referral Specialty Diagnoses / Procedures Referred By Contac t Referred To Contact Allergy Diagnoses Seasonal allergies Procedures CONSULT TO ALLERGY/IMMUNOLOGY OFFICE/OUTPATIENT [facility] 60-74 MINUTES Falguni Wetzel, GERONIMO.MANAGER CLINICAL SERVICES [address] [place] [address] Referral ID Status Reason Start Date Expiration Date Visits Requested Visits Authorized [id number] Authorized PCP Requested Referral 05/04/2022 05/04/2023 1 1 Specialty Diagnoses / Procedures Referred By Contac t Referred To Contact Diagnoses FRANCISCO (obstructive sleep apnea) Procedures CONSULT TO SLEEP MEDICINE - ADULT OFFICE/OUTPATIENT [facility] 60-74 MINUTES Kalie Arora APRN.MANAGER CLINICAL SERVICES [address] [place] [address] Referral ID Status Reason Start Date Expiration Date Visits Requested Visits Authorized [id number] Authorized PCP Requested Referral 11/25/2022 08/25/2023 1 1 Specialty Diagnoses / Procedures Referred By Contac t Referred To Contact Diagnoses FRANCISCO (obstructive sleep apnea) Procedures CONSULT TO SLEEP MEDICINE - ADULT OFFICE/OUTPATIENT [facility] 60-74 MINUTES Falguni Wetzel APRN.MANAGER CLINICAL SERVICES [address] [place] [address] Referral ID Status Reason Start Date Expiration Date Visits Requested Visits Authorized [id number] Pending Review PCP Requested Referral 12/08/2022 12/08/2023 1 1 Additional Source Comments (unrecognized sect ion and content) No Status Records FoundNo Status Records FoundNo Status Records FoundNo Status Records FoundNo Status Records FoundNo Status Records FoundNo Status Records Found INFORMATION SOURCE (unrecogn ized section and content) DATE CREATED AUTHOR AUTHOR'S ORGANIZ ATION 06/28/2021 [facility] DATE CREATED AUTHOR AUTHOR'S ORGANIZ ATION 07/07/2021 [facility] DATE CREATED AUTHOR AUTHOR'S ORGANIZ ATION 09/19/2021 [facility] DATE CREATED AUTHOR AUTHOR'S ORGANIZ ATION 11/26/2022 [facility] DATE CREATED AUTHOR AUTHOR'S ORGANIZ ATION 01/17/2023 [facility] DATE CREATED AUTHOR AUTHOR'S ORGANIZ ATION 04/01/2023 [facility] Source Comments (unrecognize d section and content) In the event this informatio n is protected by the Federal Confidentiality of Alcohol and Drug Abuse Patient Records regulations: The Federal rules restrict any use of the information to criminally investigate or prosecute any alcohol or drug abuse patient.[facility] the event this information is protected by the Federal Confidentiality of Alcohol and Drug Abuse Patient Records regulations: The Federal rules restrict any use of the information to criminally investigate or prosecute any alcohol or drug abuse patient.[facility] the event this information is protected by the Federal Confidentiality of Alcohol and Drug Abuse Patient Records regulations: The Federal rules restrict any use of the information to criminally investigate or prosecute any alcohol or drug abuse patient.[facility] the event this information is protected by the Federal Confidentiality of Alcohol and Drug Abuse Patient Records regulations: The Federal rules restrict any use of the information to criminally investigate or prosecute any alcohol or drug abuse patient.[facility] the event this information is protected by the Federal Confidentiality of Alcohol and Drug Abuse Patient Records regulations: The Federal rules restrict any use of the information to criminally investigate or prosecute any alcohol or drug abuse patient.[facility] the event this information is protected by the Federal Confidentiality of Alcohol and Drug Abuse Patient Records regulations: The Federal rules restrict any use of the information to criminally investigate or prosecute any alcohol or drug abuse patient.[facility] the event this information is protected by the Federal Confidentiality of Alcohol and Drug Abuse Patient Records regulations: The Federal rules restrict any use of the information to criminally investigate or prosecute any alcohol or drug abuse patient.[facility] the event this information is protected by the Federal Confidentiality of Alcohol and Drug Abuse Patient Records regulations: The Federal rules restrict any use of the information to criminally investigate or prosecute any alcohol or drug abuse patient.[facility] Hospital[facility] the event this information is protected by the Federal Confidentiality of Alcohol and Drug Abuse Patient Records regulations: The Federal rules restrict any use of the information to criminally investigate or prosecute any alcohol or drug abuse patient.[facility] Hospital[facility] the event this information is protected by the Federal Confidentiality of Alcohol and Drug Abuse Patient Records regulations: The Federal rules restrict any use of the information to criminally investigate or prosecute any alcohol or drug abuse patient.[facility] Hospital[facility] the event this information is protected by the Federal Confidentiality of Alcohol and Drug Abuse Patient Records regulations: The Federal rules restrict any use of the information to criminally investigate or prosecute any alcohol or drug abuse patient.[facility] Reason for Visit (unrecogniz ed section [...] Care Teams (unrecognized sec tion and content) Manager Of Internal Audit Relationship Specialty Start Date End Date Alan Avina MD [address] [place] [address] PCP - General Family Practice 01/11/14 Manager Of Internal Audit Relationship Specialty Start Date End Date Alan Avina MD [address] [place] [address] PCP - General Family Practice 01/11/14 Manager Of Internal Audit Relationship Specialty Start Date End Date Alan Avina MD [address] [place] [address] PCP - General Family Medicine 01/11/14 Manager Of Internal Audit Relationship Specialty Start Date End Date Alan Avina MD [address] [place] [address] PCP - General Family Medicine 01/11/14 Manager Of Internal Audit Relationship Specialty Start Date End Date Alan Avina MD [address] [place], [place] [id number] PCP - General Family Medicine 01/11/14 Manager Of Internal Audit Relationship Specialty Start Date End Date Alan Avina MD [address] [place] [address] PCP - General Family Medicine 01/11/14 Manager Of Internal Audit Relationship Specialty Start Date End Date Alan Avina MD [address] [place] [address] PCP - General Family Medicine 01/11/14 Manager Of Internal Audit Relationship Specialty Start Date End Date Alan Avina MD [address] [place] [address] PCP - General Family Medicine 01/11/14 Manager Of Internal Audit Relationship Specialty Start Date End Date Alan Avina MD [address] [place] [address] PCP - General Family Medicine 01/11/14 Manager Of Internal Audit Relationship Specialty Start Date End Date Alan Avina MD [address] [place] [address] PCP - General Family Medicine 01/11/14 Goals [...] BE BASED ON THE PRIMARY CLINICAL RECORDS. [facility]. provides no warranty or guarantee of the accuracy or completeness of information in this document.
--- NOTE | 2023-06-14 23:34 | RAD_ITS ---
EXAM: XR CHEST, 1 VIEW CLINICAL INDICATION: dyspnea TECHNIQUE: Frontal view of the chest. COMPARISON: 06/10/2023. FINDINGS: LUNGS AND PLEURAL SPACES: Unremarkable. No consolidation or edema. No pneumothorax. No effusion. HEART: Unremarkable. Cardiac silhouette not enlarged. MEDIASTINUM: Central airways and mediastinal contour are unremarkable. BONES/JOINTS: Unremarkable. No acute fracture. SOFT TISSUES: Unremarkable. RAD/Chest 1 View (Portable) IMPRESSION: No acute cardiopulmonary abnormality. Electronically Signed: Brian Kennedy MD at 23:48 EDT ,
[2023-06-15] VITALS (8 sets, daily range): BP systolic 94–133; BP diastolic 34–78; PULSE 71–98; RESP 16–19; TEMP 36.1–36.6; O2SAT 95–100
[2023-06-15] MEDS: DiphenhydrAMINE 50 MG/ML Syringe IM (01:18)
[2023-06-15] MEDS: Haloperidol Lactate 5 MG/ML Vial 10 MG IM (01:19)
--- NOTE | 2023-06-15 11:08 | ED.RN ---
PT ACCEPTED AT [facility] [employer] UNIT DR. LUZ N2N [id number] EXT 311 SQUAD ETA 4HRS/1500
--- NOTE | 2023-06-15 15:15 | ED.RN ---
PT TRANSEFERRED DURING COMPUTER DOWNTIME, SEE DOWNTIME INFORMATION FOR FURTHER NURSING DOCUMENTATION.
== END 2023-06-15 14:10 ==
PROVIDERS: Physician Assistant; Emergency Provider Emergency Medicine; PCP Family Medicine; Visit Provider Emergency Medicine
DX: Z04.6 Encounter for general psychiatric examination, requested by authority (principal); F29 Unspecified psychosis not due to a substance or known physiological condition; F19.19 Other psychoactive substance abuse with unspecified psychoactive substance-induced disorder; F60.3 Borderline personality disorder; F31.9 Bipolar disorder, unspecified; F41.9 Anxiety disorder, unspecified; F17.210 Nicotine dependence, cigarettes, uncomplicated; R09.02 Hypoxemia; K21.9 Gastro-esophageal reflux disease without esophagitis; Z59.00 Homelessness unspecified
CPT/HCPCS: 71045; 80048; 80307; 80320; 82962; 85025; 96372; 96374; 99283; A4216; G0480

== ENCOUNTER 2023-06-23 03:16 | Emergency (ER) | payer MEDICARE, MEDICAID, SELFPAY ==
[2023-06-23 03:17] VITALS: BP 115/74; PULSE 116; RESP 30; TEMP 36.2; O2SAT 99
--- NOTE | 2023-06-23 03:22 | EDS_ITS ---
HPI History of Present Illness Chief Complaint: Substance Abuse Informant: patient Narrative Narrative: Patient presents by EMS about an hour after doing 3 dabs, apparently smoking 3 individual doses of concentrated THC, that he states he got from a different community health and is now feeling poorly. He feels like his heart is racing 223 times per minute, anxious, and just fairly poor in general. He states he also has hallucinations. He admits that this was pre-existing, which is why he was just released from a psychiatric hospital in [place]. He states he also combined these substances tonight with 2 cans of 4 [place] drink, as well as his psychiatric medications. He understands these were not very good choices. He denies any suicidal gesture or ideation. [facility] Medical History Anxiety Bipolar disorder Depression GERD (gastroesophageal reflux disease) Panic attack Severe dextromethorphan use disorder Sleep apnea Home Medications gabapentin 100 mg capsule 100 mg PO TID 09/20/22 [History Last Taken Unknown] prazosin 1 mg capsule 2 mg PO QHS 09/20/22 [History Last Taken Unknown] clonazepam 0.5 mg tablet 0.5 mg PO DAILY 12/07/22 [History Last Taken Unknown] carbamide peroxide 6.5 % ear drops (Debrox) 5 drp EACH EAR DAILY 4 days #15 mL 06/10/23 [Rx Last Taken Unknown] hydroxyzine pamoate 25 mg capsule (Vistaril) 25 mg PO TID PRN anxiety #20 caps 06/10/23 [Rx Last Taken Unknown] mirtazapine 15 mg tablet (Remeron) 15 mg PO QHS 06/10/23 [History Last Taken Un known] Allergy/AdvReac Type Severity Reaction Status Date / Time No Known Allergies Allergy Verified 06/14/23 14:39 Social History household members: none and other details: Patient reports he has children and recently went degeneration so he could Smoking Status: Current every day smoker tobacco type: cigarettes ROS ROS ED Constitutional Constitutional ED: Denies chills or fever(s) Eyes Eyes: Denies change in vision or diplopia ENT ENT ED: Denies rhinorrhea or sore throat Cardiovascular Cardiovascular: Reports racing heartbeat; Denies chest pain Respiratory/Chest Respiratory/Chest: Denies cough or dyspnea Gastrointestinal Gastrointestinal: Denies abdominal pain, diarrhea, nausea or vomiting Genitourinary Genitourinary ED: Denies dysuria or hematuria Musculoskeletal Musculoskeletal: Denies back pain or neck pain Integumentary Denies abscess or rash Neurologic Neurologic: Denies headache(s), paresthesias or weakness Psychiatric Psychiatric: Reports anxiety and hallucinations; Denies suicidal thoughts EXAM Physical Exam Const Vital Signs: 06/23/23 03:17 Temperature 97.1 F L Temperature Source Temporal Pulse Rate 116 H Respiratory Rate 30 H Blood Pressure 115/74 Blood Pressure Mean 87 Pulse Ox 99 Oxygen Delivery Method Room Air Positive well nourished and well developed General Appearance ED: well developed and NAD HEENT Reports moist mucous membranes normocephalic and atraumatic Eyes PERRL and EOMs intact bilaterally Neck full ROM and supple Resp normal respiratory effort and clear to auscultation bilaterally Cardio regular rate, regular rhythm and no murmurs Rate: tachycardic GI non-tender and non-distended Auscultation: normoactive bowel sounds Palpation: soft Back/Spine no CVA tenderness General Back: other FROM Extremity normal to inspection General Extremety ED: Negative for edema, pulses abnormal or tenderness General Extremity: Negative for edema or pulses abnormal Neuro oriented x3, CN's II-XII intact bilaterally and no sensory deficits noted Sensorium / Orientation: awake and alert Motor Exam: strength 5/5 throughout Skin no rashes or lesions noted and no wounds MDM MDM MDM Narrative Medical decision making narrative: Patient has a very mild tachycardia and his other vital signs are normal. He is not overly agitated or objectively anxious although he states he feels anxious. Given his psychiatric medications and other substance use including some alcohol, although he does not appear overly intoxicated, I do not think mixing benzodiazepines with what he has on board is necessary and could cause harm. Therefore he is given a dose of hydroxyzine 75 mg, and will discharge him home subsequently, he was reassured with regards to his vital signs and advised that he will need to allow the drug to wear off and not to do this in the future. He is agreeable. Rhythm Strip Rhythm Strip: Sinus Tach Rate: 115 Ectopy: None Discharge Plan Triage Chief Complaint: Substance Abuse ED Provider: Fito Nunn Dx/Rx/DC Orders Clinical Impression: Substance abuse Prescriptions: No Action prazosin 1 mg capsule 2 mg PO QHS gabapentin 100 mg capsule 100 mg PO TID clonazepam 0.5 mg tablet 0.5 mg PO DAILY mirtazapine [Remeron] 15 mg tablet 15 mg PO QHS Debrox 6.5 % drops 5 drp EACH EAR DAILY 4 Days Qty: 15 0RF hydroxyzine pamoate [Vistaril] 25 mg capsule 25 mg PO TID PRN (Reason: anxiety) Qty: 20 0RF Primary Care Provider: William Castillo Disposition Disposition: Home, Self Care
[2023-06-23] MEDS: hydrOXYzine PAM 25 MG Capsule 75 MG PO (03:36)
[2023-06-23 03:39] VITALS: BP 117/59; PULSE 102; RESP 18; TEMP 36.5; O2SAT 98
== END 2023-06-23 03:52 | disposition home or self-care (01) ==
PROVIDERS: Emergency Provider Emergency Medicine; PCP Family Medicine; Visit Provider Emergency Medicine
DX: F19.19 Other psychoactive substance abuse with unspecified psychoactive substance-induced disorder (principal); F17.210 Nicotine dependence, cigarettes, uncomplicated; Z79.899 Other long term (current) drug therapy; F32.A Depression, unspecified; F41.9 Anxiety disorder, unspecified; R44.3 Hallucinations, unspecified
CPT/HCPCS: 99284

== ENCOUNTER 2023-06-24 02:57 | Emergency (ER) | payer MEDICARE, MEDICAID, SELFPAY ==
[2023-06-24 02:59] VITALS: BP 147/100; PULSE 100; RESP 18; TEMP 36.2; O2SAT 98
--- NOTE | 2023-06-24 03:30 | EDS_ITS ---
HPI HPI - Psych History of Present Illness Chief Complaint: Anxiety Informant: patient Narrative Narrative: Patient is a 38-year-old male presenting with anxiety and insomnia. Patient is a history of polysubstance abuse as well as anxiety and bipolar disorder. Patient states that he was recently in detox couple weeks ago for amphetamines and has been clean for 3 and half weeks. He is trying to give up marijuana. He notes that about a week ago he was discharged from [facility] in [place]. States that he fell asleep and did not take his evening medicines. States that he is on Klonopin, prazosin, Remeron and gabapentin. Notes that has had a really hard time sleeping lately. Denies any new audiovisual hallucinations. He was worried that his heart was beating too fast as he had an episode where his heart was beating 223 times per minute a couple days ago however patient gave the same story last night when he was seen for anxiety. He states he does not want to harm himself denies any HI or SI at this time. He states he just wants to be happy and appreciate his life. He states he called 911 tonight because he was worried he was not safe at home because there could be something wrong with his heart. [facility] Medical History Anxiety Bipolar disorder Depression GERD (gastroesophageal reflux disease) Panic attack Severe dextromethorphan use disorder Sleep apnea Home Medications gabapentin 100 mg capsule 600 mg PO TID 09/20/22 [History Last Taken Unknown] prazosin 1 mg capsule 2 mg PO QHS 09/20/22 [History Last Taken Unknown] clonazepam 0.5 mg tablet 0.5 mg PO Q12H PRN anxiety 12/07/22 [History Last Taken Unknown] mirtazapine 15 mg tablet (Remeron) 45 mg PO QHS 06/10/23 [History Last Taken Unknown] Allergy/AdvReac Type Severity Reaction Status Date / Time No Known Allergies Allergy Verified 06/24/23 02:59 Social History household members: none and other details: Patient reports he has children and recently went degeneration so he could Smoking Status: Current every day smoker tobacco type: cigarettes ROS ROS ED Constitutional Constitutional ED: Reports sweats; Denies chills or fever(s) Eyes Eyes: Denies change in vision Cardiovascular Cardiovascular: Denies chest pain Respiratory/Chest Respiratory/Chest: Denies cough Gastrointestinal Gastrointestinal: Reports diarrhea; Denies abdominal pain or vomiting Musculoskeletal Musculoskeletal: Denies arthralgias or myalgias Integumentary Denies rash Neurologic Neurologic: Denies headache(s) Psychiatric Psychiatric: Reports anxiety; Denies suicidal ideation or suicidal thoughts EXAM Physical Exam Const Vital Signs: 06/24/23 02:59 Temperature 97.1 F L Temperature Source Temporal Pulse Rate 100 Respiratory Rate 18 Blood Pressure 147/100 H Blood Pressure Mean 115 Pulse Ox 98 Oxygen Delivery Method Room Air Positive well nourished and well developed General Appearance ED: well developed and NAD HEENT Reports moist mucous membranes normocephalic and atraumatic Eyes PERRL and EOMs intact bilaterally Neck supple Resp normal respiratory effort and clear to auscultation bilaterally Cardio Rate: regular rate Extremity normal to inspection Neuro oriented x3 Sensorium / Orientation: alert Psych cooperative, activity/motor behavior normal, denies hallucinations, denies homicidal ideation and denies suicidal ideation Appearance: grossly normal Activity / Motor Behavior: appropriate eye contact Speech: rapid Mood & Affect: anxious Thought Process: No flight of ideas and racing thoughts Thought Content: normal thought content Attention / Concentration: attention grossly intact and concentration grossly intact Memory / Cognition: memory grossly intact Insight: insight good Judgement: fair Skin Lesions: no lesions Rashes: no rashes MDM MDM MDM Narrative Medical decision making narrative: Patient is evaluated for sounds like insomnia and anxiety. He is hemodynamically stable. He is mildly hypertensive 147/100. Patient does appear mildly internally stimulated/has racing thoughts however he is able to redirect himself and calm himself back down throughout my conversation with him. Does not show that patient has recent prescription for Klonopin from [facility]. He did not take his evening dose and will be given a 1 mg dose of oral Klonopin here. I did discuss that continued dependency on benzodiazepines is likely not helpful and more of a Band-Aid. He needs to continue to follow-up with psychiatry. He does not have any thoughts of harm himself or others and seems to be adequately able to care for himself so do not think he requires an emergent psychiatric evaluation. He does follow with a counselor tenderness encouraged to continue to follow with him. I did offer him a dose of Zyprexa orally however he declined stating that so they had him on at [facility] and he is no longer on that. Patient is discharged home instructions to take his other evening medicines (no more clonazepam). Counseled of outpatient follow-up with the counseling center. At this time I do not suspect an acute medical emergency do not think he requires further workup. Discharge Plan Triage Chief Complaint: Anxiety ED Provider: Kasey Gamboa Dx/Rx/DC Orders Clinical Impression: Anxiety reaction Instructions: ED Anxiety Reaction Prescriptions: No Action prazosin 1 mg capsule 2 mg PO QHS gabapentin 100 mg capsule 600 mg PO TID clonazepam 0.5 mg tablet 0.5 mg PO Q12H PRN (Reason: anxiety) mirtazapine [Remeron] 15 mg tablet 45 mg PO QHS Primary Care Provider: William Castillo Referrals: Counseling,Center [Group of Physicians] - 1 Day William Castillo MD [Primary Care Provider] - Activity Restrictions/Additional Instructions: Please follow-up with the counseling center tomorrow. At the know that you are dealing with increased episodes of anxiety attacks and had 2 ER visits in the last few days for this. You might need a medication adjustment. Please take your nighttime medicines (except for the clonazepam and she received some of that here) when you get home. Continue to abstain from marijuana and all other illicit drugs. Disposition Disposition: Home, Self Care
[2023-06-24] MEDS: clonazePAM 1 MG Tablet PO (04:04)
[2023-06-24 04:07] VITALS: BP 147/100; PULSE 91; RESP 18; TEMP 36.2; O2SAT 98
== END 2023-06-24 04:08 | disposition home or self-care (01) ==
PROVIDERS: Emergency Provider Emergency Medicine; PCP Family Medicine; Visit Provider Emergency Medicine
DX: F41.1 Generalized anxiety disorder (principal); F31.9 Bipolar disorder, unspecified; G47.00 Insomnia, unspecified; F17.210 Nicotine dependence, cigarettes, uncomplicated; K21.9 Gastro-esophageal reflux disease without esophagitis; Z87.898 Personal history of other specified conditions
CPT/HCPCS: 99282

== ENCOUNTER 2023-07-02 09:39 | Emergency (ER) | payer MEDICARE, MEDICAID, SELFPAY ==
[2023-07-02 09:40] VITALS: BP 129/87; PULSE 106; RESP 22; TEMP 36.6; O2SAT 94; BMI 27.1
--- NOTE | 2023-07-02 10:13 | ED.RN ---
Pt. left room while Dr. Stewart was still in room assessing him. Officer mariana at bedside and pt. states you just cant get help when you want help. Dr. Stewart states patient is free to go if he chooses. pt. ambulated out of department.
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
== END 2023-07-02 10:57 | disposition left against medical advice (07) ==
PROVIDERS: Emergency Provider Emergency Medicine; PCP Family Medicine; Visit Provider Emergency Medicine
DX: Z53.29 Procedure and treatment not carried out because of patient's decision for other reasons (principal); F41.9 Anxiety disorder, unspecified; F17.210 Nicotine dependence, cigarettes, uncomplicated; G47.00 Insomnia, unspecified; K21.9 Gastro-esophageal reflux disease without esophagitis; R07.9 Chest pain, unspecified
CPT/HCPCS: 99282

== ENCOUNTER 2023-07-09 15:00 | Emergency (ER) | payer MEDICARE, MEDICAID, SELFPAY ==
[2023-07-09 15:01] VITALS: BP 141/100; PULSE 131; RESP 18; O2SAT 95
[2023-07-09 15:02] VITALS: BP 138/95; PULSE 127; RESP 18; TEMP 36.1; O2SAT 97; BMI 27.8
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
--- NOTE | 2023-07-09 16:13 | ED.RN ---
PT JOHN AFTER SPEAKING TO DR. CAICEDO, UNABLE TO OBTAIN PROPER ASSESSMENT DATA PT JOHN.
== END 2023-07-09 16:14 | disposition home or self-care (01) ==
PROVIDERS: Emergency Provider Emergency Medicine; PCP Family Medicine; Visit Provider Emergency Medicine
DX: F41.9 Anxiety disorder, unspecified (principal); F17.210 Nicotine dependence, cigarettes, uncomplicated; K21.9 Gastro-esophageal reflux disease without esophagitis
CPT/HCPCS: 99282

== ENCOUNTER 2023-07-21 16:17 | Outpatient (CLI) | payer MEDICARE, MEDICAID, SELFPAY ==
[2023-07-21 17:49] LABS: Amphetamine Urine VISTA NEGATIVE (<1000 ng/mL); Barbiturate Urine VISTA NEGATIVE (< 200 ng/mL); Benzodiazepine Urine VISTA NEGATIVE (< 200 ng/mL); Cocaine Urine VISTA NEGATIVE (< 300 ng/mL); Ecstacy Urine VISTA NEGATIVE (< 500 ng/mL); Methadone Urine VISTA NEGATIVE (< 300 ng/mL); PCP Urine VISTA NEGATIVE (< 25 ng/mL); THC Urine VISTA POSITIVE (< 50 ng/mL); Vista UDS pH Range 5
== END 2023-07-21 23:59 | disposition home or self-care (01) ==
LOC: LAB 16:20
PROVIDERS: PCP Family Medicine
DX: F19.10 Other psychoactive substance abuse, uncomplicated (principal)
CPT/HCPCS: 80307

== ENCOUNTER 2023-07-30 23:51 | Emergency (ER) | payer MEDICARE, MEDICAID, SELFPAY ==
[2023-07-30 23:52] VITALS: PULSE 141; RESP 30; TEMP 36.1; BMI 28.3
[2023-07-31] VITALS (30 sets, daily range): BP systolic 52–137; BP diastolic 29–97; PULSE 80–105; RESP 6–22; TEMP 36.2; O2SAT 92–100
[2023-07-31] MEDS: 0.9% Normal Saline (1000mL) 1,000 ML 1000 ML IV (00:01)
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
[2023-07-31 00:12] LABS: Absolute Lymphocyte Count 6.94 X10^3/uL (0.83-4.51); Absolute Neutrophil Count 4.4 X10^3/uL (2.0-7.7); Basophil# 0.07 X10^3/uL; Basophil% 0.6 % (0-1); Eosinophil# 0.21 X10^3/uL; Eosinophils% 1.7 % (0-5); Hemoglobin 14.3 g/dL (13.0-16.5); Lymphocyte # 6.94 X10^3/ul (0.83-4.51); Lymphocyte % 55.6 % (19-41); Mean Corp Hgb Conc 32.5 g/dL (32-36); Mean Corpuscular Hgb 30.6 pg (27.0-32.0); Mean Corpuscular Volume 94.2 fL (80-94); Mean Platelet Vol. 8.9 fl (6.2-12.0); Monocyte# 0.86 X10^3/uL; Monocyte% 6.9 % (0-10); NRBC Flagged by Analyzer 0 % (0-5); Neutrophil # 4.35 X10^3/uL (2.7-7.7); Neutrophil % 34.8 % (47-70); POSITIVE DIFFERENTIAL YES; POSITIVE MORPHOLOGY YES; Platelet Count 365 K/mm3 (150-450); RBC Distribution Width SD 51.2 fl (35.1-43.9); Red Blood Count 4.67 M/mm3 (4.6-6.2); White Blood Count 12.5 K/mm3 (4.4-11.0)
[2023-07-31] MEDS: Ziprasidone IM 20 MG/ML VIAL IM (00:20)
[2023-07-31] MEDS: Diphth,Pertuss(Acell),Tet Vac 0.5 ML Vial IM (00:20)
[2023-07-31 00:23] LABS: Differential Indicated SCAN CRITERIA MET
[2023-07-31 00:26] LABS: Anion Gap 23 (5-15); BUN 19 mg/dL (7-18); Calcium,Total 8.9 mg/dL (8.5-10.1); Chloride 103 mmol/L (98-107); EST Glomerular Filtration Rate 38 mL/min (>60); Est Glom Filt Rate - Afr Amer 46 mL/min (>60); Estimated Creatinine Clearance 56.99 ml/min; Glucose 185 mg/dL (74-106); Potassium 3.7 mmol/L (3.5-5.1); Sodium Level 138 mmol/L (136-145)
[2023-07-31 00:58] LABS: Differential Comment SCANED; Platelet Estimate ADEQUATE (ADEQ)
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
[2023-07-31] MEDS: Cefazolin 1 GM/50 ML BAG IV (01:49)
[2023-07-31 02:58] LABS: Amphetamine Urine VISTA POSITIVE (<1000 ng/mL); Barbiturate Urine VISTA NEGATIVE (< 200 ng/mL); Benzodiazepine Urine VISTA NEGATIVE (< 200 ng/mL); Cocaine Urine VISTA NEGATIVE (< 300 ng/mL); Ecstacy Urine VISTA NEGATIVE (< 500 ng/mL); Methadone Urine VISTA NEGATIVE (< 300 ng/mL); PCP Urine VISTA NEGATIVE (< 25 ng/mL); THC Urine VISTA POSITIVE (< 50 ng/mL); Vista UDS pH Range 5
[2023-07-31] MEDS: fentaNYL 100 MCG/2 ML Ampul 25 MCG IV (03:01)
[2023-07-31] MEDS: HYDROcodone Bitartrate/Apap 5/325 Tablet PO (03:02)
[2023-08-03 15:10] LABS: Pathologist Review Reviewed
== END 2023-07-31 03:19 | disposition home or self-care (01) ==
PROVIDERS: Emergency Provider Emergency Medicine; PCP Family Medicine; Visit Provider Emergency Medicine
DX: S71.112A Laceration without foreign body, left thigh, initial encounter (principal); F15.11 Other stimulant abuse, in remission; S71.111A Laceration without foreign body, right thigh, initial encounter; F17.210 Nicotine dependence, cigarettes, uncomplicated; K21.9 Gastro-esophageal reflux disease without esophagitis; X99.1XXA Assault by knife, initial encounter; Y92.524 Gas station as the place of occurrence of the external cause; Z23 Encounter for immunization
CPT/HCPCS: 13121; 13122; 73706; 80048; 80307; 80320; 85025; 86850; 86900; 86901; 90471; 90715; 96361; 96365; 96372; 96375; 99283; J7030; Q9967; A4216; G0480; J3486

== ENCOUNTER 2023-07-31 10:29 | Emergency (ER) | payer MEDICARE, MEDICAID, SELFPAY ==
[2023-07-31 10:30] VITALS: BP 76/63; PULSE 117; RESP 16; TEMP 36.2; O2SAT 98; BMI 27.3
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
[2023-07-31] MEDS: Morphine 4 MG/ML Syringe IM (10:56)
[2023-07-31 11:33] VITALS: BP 90/40; PULSE 79; RESP 16; O2SAT 98
[2023-07-31 11:36] VITALS: BP 90/40; PULSE 79; RESP 16; O2SAT 98
== END 2023-07-31 11:37 | disposition left against medical advice (07) ==
LOC: ED 11:36
PROVIDERS: Emergency Provider Emergency Medicine; PCP Family Medicine; Visit Provider Emergency Medicine
DX: T79.2XXA Traumatic secondary and recurrent hemorrhage and seroma, initial encounter (principal); F17.210 Nicotine dependence, cigarettes, uncomplicated; K21.9 Gastro-esophageal reflux disease without esophagitis; F41.9 Anxiety disorder, unspecified; F32.A Depression, unspecified; S71.111A Laceration without foreign body, right thigh, initial encounter; S71.112A Laceration without foreign body, left thigh, initial encounter; X99.1XXA Assault by knife, initial encounter
CPT/HCPCS: 96372; 99283

== ENCOUNTER 2023-08-01 16:39 | Emergency (ER) | payer MEDICARE, MEDICAID, SELFPAY ==
[2023-08-01 16:40] VITALS: BP 117/69; PULSE 84; RESP 16; TEMP 36.2; O2SAT 97
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
--- NOTE | 2023-08-01 18:12 | ED.RN ---
DR SHIELDS WENT IN TO SEE THE PT AND HE ASSESSED HIS WOUNDS. WHEN DR SHIELDS WAS FINISHED ASSESSING HIM PT BEGAN TO START HIS RANTING CONVERSATION AND ASKING QUESTIONS BUT NOT LISTENING TO THE ANSWERS DR SHIELDS WAS TRYING TO PROVIDE. THIS CONTINUED DR SHIELDS LEFT THE ROOM AND STATED THE PT COULD LEAVE. THE PT THEN GOT ON THE HOSPITAL PHONE AND STATED HE WAS GOING TO MAKE ANOTHER PHONE CALL. THIS NURSE TOLD THE PT HE COULD USE THE PHONE IN THE WAITING ROOM AND HE STARTED YELLING AND STORMED OUT OF THE ER.
== END 2023-08-01 18:20 | disposition home or self-care (01) ==
PROVIDERS: Emergency Provider Emergency Medicine; PCP Family Medicine; Visit Provider Emergency Medicine
DX: S71.111D Laceration without foreign body, right thigh, subsequent encounter (principal); S71.112D Laceration without foreign body, left thigh, subsequent encounter; X99.1XXD Assault by knife, subsequent encounter; F17.210 Nicotine dependence, cigarettes, uncomplicated; Z71.2 Person consulting for explanation of examination or test findings
CPT/HCPCS: 99282

== ENCOUNTER → 2023-08-02 | Outpatient (CLI) | payer MEDICARE, MEDICAID, SELFPAY ==
[2023-08-02 16:19] LABS: Amphetamine Urine VISTA NEGATIVE (<1000 ng/mL); Barbiturate Urine VISTA NEGATIVE (< 200 ng/mL); Benzodiazepine Urine VISTA NEGATIVE (< 200 ng/mL); Cocaine Urine VISTA NEGATIVE (< 300 ng/mL); Ecstacy Urine VISTA NEGATIVE (< 500 ng/mL); Methadone Urine VISTA NEGATIVE (< 300 ng/mL); PCP Urine VISTA NEGATIVE (< 25 ng/mL); THC Urine VISTA POSITIVE (< 50 ng/mL); Vista UDS pH Range 6
== END | disposition home or self-care (01) ==
PROVIDERS: PCP Family Medicine
DX: F19.10 Other psychoactive substance abuse, uncomplicated (principal)
CPT/HCPCS: 80307

== ENCOUNTER 2023-08-10 12:32 | Emergency (ER) | payer MEDICARE, MEDICAID, SELFPAY ==
[2023-08-10 12:34] VITALS: BP 122/71; PULSE 96; PULSE 99; RESP 14; TEMP 35.8; O2SAT 98; O2SAT 99
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
== END 2023-08-10 14:02 | disposition home or self-care (01) ==
PROVIDERS: Emergency Provider Emergency Medicine; PCP Family Medicine; Visit Provider Emergency Medicine
DX: Z48.02 Encounter for removal of sutures (principal); F31.9 Bipolar disorder, unspecified; F17.210 Nicotine dependence, cigarettes, uncomplicated; K21.9 Gastro-esophageal reflux disease without esophagitis; S80.11XA Contusion of right lower leg, initial encounter; S80.12XA Contusion of left lower leg, initial encounter; Y09 Assault by unspecified means
CPT/HCPCS: 99283

== ENCOUNTER 2023-08-24 08:06 | Emergency (ER) | payer MEDICARE, MEDICAID, SELFPAY ==
[2023-08-24 08:06] VITALS: BP 130/72; PULSE 73; RESP 14; TEMP 36.6; O2SAT 97; BMI 25.2
--- NOTE | 2023-08-24 08:20 | EX.ED.VIS.PS ---
HPI HPI - Psych History of Present Illness Chief Complaint: Suicidal Informant: patient Narrative Narrative: Patient presents with police secondary to suicidal and homicidal ideation. He states that he has not been on his psychiatric medicines for quite some time. He is having difficulty sleeping and eating and overall functioning in life. He states that he is receiving threats against himself, his son, and his son's mother. He states that he is ready to respond with violence if someone comes after him. Patient states his plan is to overdose on cough medicine. He states he took 2 boxes of cough medicine yesterday hoping that it would kill him. 2 days prior to that he did the same. [facility] Medical History Sleep apnea Severe dextromethorphan use disorder Panic attack Anxiety Depression GERD (gastroesophageal reflux disease) Bipolar disorder Home Medications ?Medication ?Instructions ?Recorded ?Last Taken ?Type gabapentin 100 mg capsule 600 mg PO TID 09/20/22 Unknown History prazosin 1 mg capsule 2 mg PO QHS 09/20/22 Unknown History clonazepam 0.5 mg tablet 0.5 mg PO Q12H PRN anxiety 12/07/22 Unknown History mirtazapine 15 mg tablet (Remeron) 45 mg PO QHS 06/10/23 Unknown History cephalexin 500 mg capsule 500 mg PO Q6 #40 CAPSULES 07/31/23 Unknown Rx hydrocodone-acetaminophen 5-325mg 1 tab PO Q4H PRN PRN Pain 2 days 07/31/23 Unknown Rx 5mg-325mg #10 TABLETS Allergy/AdvReac Type Severity Reaction Status Date / Time No Known Allergies Allergy Verified 08/24/23 08:06 Social History household members: none and other details: Patient reports he has children and recently went degeneration so he could Smoking Status: Current every day smoker tobacco type: cigarettes ROS ROS ED Constitutional Constitutional ED: Denies chills or fever(s) Eyes Eyes: Denies discharge from eye(s) ENT ENT ED: Denies discharge from eye(s), rhinorrhea or sore throat Cardiovascular Cardiovascular: Denies chest pain Respiratory/Chest Respiratory/Chest: Denies cough or dyspnea Gastrointestinal Gastrointestinal: Denies abdominal pain, nausea or vomiting Musculoskeletal Musculoskeletal: Denies back pain or extremity pain Integumentary Reports Abrasions; Denies rash Neurologic Neurologic: Denies headache(s) or weakness Psychiatric Psychiatric: Reports anxiety and suicidal ideation Allergic/Immunologic Allergic/Immunologic ED: Denies lip swelling or urticaria EXAM Physical Exam Const Vital Signs: 08/24/23 08:06 Temperature 98 F Temperature Source Temporal Pulse Rate 73 Respiratory Rate 14 Blood Pressure 130/72 H Blood Pressure Mean 91 Pulse Ox 97 Oxygen Delivery Method Room Air Positive well nourished and well developed General Appearance ED: well developed HEENT Reports moist mucous membranes Eyes EOMs intact bilaterally Resp normal respiratory effort and clear to auscultation bilaterally Cardio Rate: regular rate Rhythm: regular rhythm GI non-tender Auscultation: normoactive bowel sounds Palpation: soft Extremity Extremity Narrative: 2 cm superficial abrasion to the volar aspect of the right forearm. No evidence of infection. Neuro oriented x3 and no sensory deficits noted Motor Exam: strength 5/5 throughout Psych cooperative Speech: pressured Mood & Affect: anxious Thought Content: suicidality and homicidality MDM MDM MDM Narrative Medical decision making narrative: Labwork for psychiatric clearance will be obtained. History & Record Review Discussion w/independent historian: Patient Additional record(s) reviewed:: Prior ED visit and Prior labs Lab Data Attestation: I reviewed the patient's lab results. Labs: Laboratory Results - last 24 hr 08/24/23 08/24/23 08:24 09:10 WBC 5.2 RBC 4.46 L Hgb 13.5 Hct 40.4 MCV 90.6 MCH 30.3 MCHC 33.4 RDW Std Deviation 50.1 H RDW Coeff of Gabriel 15.1 H Plt Count 390 MPV 8.2 Immature Gran % (Auto) 0.200 Neut % (Auto) 49.2 Lymph % (Auto) 41.2 H Cloud % (Auto) 7.3 Eos % (Auto) 1.5 Baso % (Auto) 0.6 Absolute Neuts (auto) 2.6 Absolute Lymphs (auto) 2.14 Nucleated RBC % 0 Sodium 143 Potassium 3.7 Chloride 110 H Carbon Dioxide 28.0 Anion Gap 5 BUN 11 Creatinine 1.14 Estim Creat Clear Calc 96.43 Est GFR (MDRD) Af Amer 92 Est GFR (MDRD) Non-Af 76 BUN/Creatinine Ratio 9.6 L Glucose 93 Calcium 8.7 Urine Opiates Screen NEGATIVE Urine Methadone Screen NEGATIVE Ur Barbiturates Screen NEGATIVE Ur Phencyclidine Scrn NEGATIVE Ur Amphetamines Screen POSITIVE H MDMA (Ecstasy) Screen NEGATIVE U Benzodiazepines Scrn NEGATIVE Urine Cocaine Screen NEGATIVE U Cannabinoids Screen POSITIVE H Ur Drug Screen Comment Ethyl Alcohol < 3.0 Treatment and Re-Evaluation Narrative: CBC was normal white count 5.2 with a hemoglobin of 13.5. Differential unremarkable. Chemistry studies are normal. EtOH is less than 3. Tox screen is positive for amphetamines and cannabinoids. Patient was seen and evaluated by crisis. They do feel patient will require placement. He has been accepted at [facility] and transportation has been arranged. Discharge Plan Triage Chief Complaint: Suicidal ED Provider: Sridevi Shelton Dx/Rx/DC Orders Clinical Impression: Suicidal ideation, Homicidal ideation Prescriptions: No Action prazosin 1 mg capsule 2 mg PO QHS gabapentin 100 mg capsule 600 mg PO TID clonazepam 0.5 mg tablet 0.5 mg PO Q12H PRN (Reason: anxiety) mirtazapine [Remeron] 15 mg tablet 45 mg PO QHS cephalexin [cephalexin] 500 mg capsule 500 mg PO Q6 Qty: 40 0RF hydrocodone-acetaminophen [hydrocodone-acetaminophen] 5-325 mg tablet 1 tab PO Q4H PRN PRN (Reason: Pain) 2 Days Qty: 10 0RF Primary Care Provider: William Castillo Referrals: William Castillo MD [Primary Care Provider] - Print Language: Latvian Disposition Disposition: Psychiatric Hospital or Unit Discharge Location: [facility]
[2023-08-24 08:41] LABS: Absolute Lymphocyte Count 2.14 X10^3/uL (0.83-4.51); Absolute Neutrophil Count 2.6 X10^3/uL (2.0-7.7); Basophil# 0.03 X10^3/uL; Basophil% 0.6 % (0-1); Eosinophil# 0.08 X10^3/uL; Eosinophils% 1.5 % (0-5); Hematocrit 40.4 % (40-54); Hemoglobin 13.5 g/dL (13.0-16.5); Lymphocyte # 2.14 X10^3/ul (0.83-4.51); Lymphocyte % 41.2 % (19-41); Mean Corp Hgb Conc 33.4 g/dL (32-36); Mean Corpuscular Hgb 30.3 pg (27.0-32.0); Mean Corpuscular Volume 90.6 fL (80-94); Mean Platelet Vol. 8.2 fl (6.2-12.0); Monocyte# 0.38 X10^3/uL; Monocyte% 7.3 % (0-10); NRBC Flagged by Analyzer 0 % (0-5); Neutrophil # 2.55 X10^3/uL (2.7-7.7); Neutrophil % 49.2 % (47-70); Platelet Count 390 K/mm3 (150-450); RBC Distribution Width CV 15.1 % (11.6-14.6); RBC Distribution Width SD 50.1 fl (35.1-43.9); Red Blood Count 4.46 M/mm3 (4.6-6.2); White Blood Count 5.2 K/mm3 (4.4-11.0)
[2023-08-24 08:56] LABS: Alcohol, Blood (Medical)-Serum < 3.0 mg/dL; Anion Gap 5 (5-15); BUN 11 mg/dL (7-18); BUN/Creat Ratio 9.6 RATIO (10-20); Calcium,Total 8.7 mg/dL (8.5-10.1); Chloride 110 mmol/L (98-107); Creatinine, Serum 1.14 mg/dL (0.70-1.30); EST Glomerular Filtration Rate 76 mL/min (>60); Est Glom Filt Rate - Afr Amer 92 mL/min (>60); Estimated Creatinine Clearance 96.43 ml/min; Glucose 93 mg/dL (74-106); Potassium 3.7 mmol/L (3.5-5.1); Sodium Level 143 mmol/L (136-145)
[2023-08-24 09:39] LABS: Amphetamine Urine VISTA POSITIVE (<1000 ng/mL); Barbiturate Urine VISTA NEGATIVE (< 200 ng/mL); Benzodiazepine Urine VISTA NEGATIVE (< 200 ng/mL); Cocaine Urine VISTA NEGATIVE (< 300 ng/mL); Ecstacy Urine VISTA NEGATIVE (< 500 ng/mL); Methadone Urine VISTA NEGATIVE (< 300 ng/mL); PCP Urine VISTA NEGATIVE (< 25 ng/mL); THC Urine VISTA POSITIVE (< 50 ng/mL); Vista UDS pH Range 5
--- NOTE | 2023-08-24 09:48 | NURSING ---
FAXED CHART TO [facility]
[2023-08-24 12:31] VITALS: PULSE 72; RESP 16; O2SAT 99
[2023-08-24 16:10] VITALS: BP 114/73; PULSE 75; RESP 16; O2SAT 95
--- NOTE | 2023-08-24 16:10 | NURSING ---
PER [facility], ETA IS NOW 1730
[2023-08-24 16:31] VITALS: BP 114/73; PULSE 75; RESP 16; TEMP 36.4; O2SAT 95
--- NOTE | 2023-08-24 17:41 | NURSING ---
CALLED [facility], TALKED TO CHIDI. ETA IS 60 MIN
--- NOTE | 2023-08-24 18:25 | NURSING ---
CALLED [facility], TALKED TO PATRICIA. ETA ANOTHER 30 MIN
== END 2023-08-24 19:03 ==
PROVIDERS: Emergency Provider Emergency Medicine; PCP Family Medicine; Visit Provider Emergency Medicine
DX: R45.851 Suicidal ideations (principal); F17.210 Nicotine dependence, cigarettes, uncomplicated; R45.850 Homicidal ideations; K21.9 Gastro-esophageal reflux disease without esophagitis; F41.9 Anxiety disorder, unspecified; S50.811A Abrasion of right forearm, initial encounter; X58.XXXA Exposure to other specified factors, initial encounter
CPT/HCPCS: 80048; 80307; 80320; 85025; 99284; G0480

== ENCOUNTER 2023-09-05 01:24 | Emergency (ER) | payer MEDICARE, MEDICAID, SELFPAY ==
[2023-09-05 01:24] VITALS: BP 123/84; PULSE 101; RESP 18; TEMP 37; O2SAT 97
[2023-09-05 01:28] VITALS: BP 123/84; PULSE 101; RESP 18; TEMP 37; O2SAT 97
--- NOTE | 2023-09-05 01:48 | EDS_ITS ---
HPI History of Present Illness Chief Complaint: Substance Abuse Informant: patient and EMS Narrative Narrative: 38-year-old male states that approximately 4 and half hours prior to arrival he took some Delsym. He does not know if it had dextromethorphan in it. States he took this to give himself a glimmer of light in his life. He states his whole life is been messed up. Elkin has a history of bipolar disorder was recently transferred to psychiatric facility where he states he was discharged about 2 days ago. He states he has not taken any of his prescribed psychiatric medicines because he does not feel like he needs them he only wants his Klonopin which he cannot get until he sees Mr. Bennett. He states that Mr. Bennett is an idiot because he could not see him until Wednesday. He states that the doctors at the psychiatric facility are stupid and the worst because they would not give him Klonopin. He states that he has abused Klonopin in the past but he needs it to live a happy life. He is currently denying suicidal or homicidal ideation. He states that tonight he called the ambulance to bring him to the hospital to make sure that he did not take too much Delsym. [facility] Medical History Sleep apnea Severe dextromethorphan use disorder Panic attack Anxiety Depression GERD (gastroesophageal reflux disease) Bipolar disorder Home Medications ?Medication ?Instructions ?Recorded ?Last Taken ?Type gabapentin 100 mg capsule 600 mg PO TID 09/20/22 Unknown History prazosin 1 mg capsule 2 mg PO QHS 09/20/22 Unknown History clonazepam 0.5 mg tablet 0.5 mg PO Q12H PRN anxiety 12/07/22 Unknown History mirtazapine 15 mg tablet (Remeron) 45 mg PO QHS 06/10/23 Unknown History cephalexin 500 mg capsule 500 mg PO Q6 #40 CAPSULES 07/31/23 Unknown Rx hydrocodone-acetaminophen 5-325mg 1 tab PO Q4H PRN PRN Pain 2 days 07/31/23 Unknown Rx 5mg-325mg #10 TABLETS Allergy/AdvReac Type Severity Reaction Status Date / Time No Known Allergies Allergy Verified 09/05/23 01:27 Social History household members: none and other details: Patient reports he has children and recently went degeneration so he could Smoking Status: Current every day smoker tobacco type: cigarettes ROS ROS ED Constitutional Constitutional ED: Denies chills, fever(s) or weight loss Eyes Eyes: Denies change in vision or diplopia ENT ENT ED: Denies ear pain, rhinorrhea or sore throat Cardiovascular Cardiovascular: Denies chest pain, orthopnea, palpitations or racing heartbeat Respiratory/Chest Respiratory/Chest: Denies cough, dyspnea or orthopnea Gastrointestinal Gastrointestinal: Denies abdominal pain, diarrhea, nausea or vomiting Genitourinary Genitourinary ED: Denies dysuria, hematuria or urinary frequency Musculoskeletal Musculoskeletal: Denies arthralgias or myalgias Integumentary Denies abscess or rash Neurologic Neurologic: Denies headache(s) or weakness Psychiatric Psychiatric: Reports depression; Denies anxiety, suicidal ideation or suicidal thoughts Endocrine Endocrinology: Denies polydipsia, polyphagia or polyuria Allergic/Immunologic Allergic/Immunologic ED: Denies mouth swelling, tongue swelling or urticaria EXAM Physical Exam Const Vital Signs: 09/05/23 01:24 09/05/23 01:28 Temperature 98.6 F 98.6 F Temperature Source Oral Oral Pulse Rate 101 H 101 H Respiratory Rate 18 18 Blood Pressure 123/84 H 123/84 H Blood Pressure Mean 97 97 Pulse Ox 97 97 Oxygen Delivery Method Room Air Room Air Positive well nourished and well developed General Appearance ED: well developed HEENT Reports normocephalic, head/scalp atraumatic and moist mucous membranes Eyes PERRL and EOMs intact bilaterally Neck no lymphadenopathy, supple and no JVD Resp normal respiratory effort and clear to auscultation bilaterally Cardio regular rate, regular rhythm and no murmurs GI normal to inspection, nondistended, normoactive bowel sounds and non-tender Palpation: soft Back/Spine no CVA tenderness and normal ROM Extremity normal to inspection General Extremety ED: Negative for edema General Extremity: Negative for edema Neuro oriented x3 and CN's II-XII intact bilaterally Neuro Narrative: Normal gait Sensorium / Orientation: alert Motor Exam: strength 5/5 throughout Psych Psych Narrative: Patient is angry belligerent calling me derogatory names. He is refusing to answer questions appropriately. Attitude: agitated Mood & Affect: Negative for depressed or tearful Skin no rashes or lesions noted and no wounds MDM MDM MDM Narrative Medical decision making narrative: After approximately 10 minutes of being berated belittled by the patient I informed him that he appears clinically stable and I have asked him to leave the emergency department. I informed him that if he chooses not to get up and leave I will have him escorted off by the police at which point he got up and walked out of the emergency department without difficulty cursing and screaming as he went out the door. History & Record Review Discussion w/independent historian: Patient Discharge Plan Triage Chief Complaint: Substance Abuse ED Provider: Marino Stewart Dx/Rx/DC Orders Clinical Impression: Drug-seeking behavior, Bipolar disorder Instructions: ED Bipolar Disorder Prescriptions: No Action prazosin 1 mg capsule 2 mg PO QHS gabapentin 100 mg capsule 600 mg PO TID clonazepam 0.5 mg tablet 0.5 mg PO Q12H PRN (Reason: anxiety) mirtazapine [Remeron] 15 mg tablet 45 mg PO QHS cephalexin [cephalexin] 500 mg capsule 500 mg PO Q6 Qty: 40 0RF hydrocodone-acetaminophen [hydrocodone-acetaminophen] 5-325 mg tablet 1 tab PO Q4H PRN PRN (Reason: Pain) 2 Days Qty: 10 0RF Primary Care Provider: William Castillo Referrals: William Castillo MD [Primary Care Provider] - Print Language: Mongolian Disposition Disposition: Home, Self Care Discharge Date/Time: 09/05/23 01:41
== END 2023-09-05 01:41 | disposition home or self-care (01) ==
LOC: ED 01:39
PROVIDERS: Emergency Provider Emergency Medicine; PCP Family Medicine; Visit Provider Emergency Medicine
DX: F31.9 Bipolar disorder, unspecified (principal); F17.210 Nicotine dependence, cigarettes, uncomplicated; Z76.5 Malingerer [conscious simulation]; K21.9 Gastro-esophageal reflux disease without esophagitis; Z53.21 Procedure and treatment not carried out due to patient leaving prior to being seen by health care provider
CPT/HCPCS: 99281; 99282

== ENCOUNTER 2023-09-05 09:30 | Emergency (ER) | payer MEDICARE, MEDICAID, SELFPAY ==
[2023-09-05 09:31] VITALS: BP 150/102; PULSE 110; RESP 16; TEMP 36.6; O2SAT 99
[2023-09-05 09:37] VITALS: BMI 29.9
== END 2023-09-05 09:48 | disposition left against medical advice (07) ==
LOC: ED 09:54
PROVIDERS: PCP Family Medicine
DX: Z53.21 Procedure and treatment not carried out due to patient leaving prior to being seen by health care provider (principal)
CPT/HCPCS: 99281

== ENCOUNTER 2023-09-06 15:17 | Emergency (ER) | payer MEDICARE, MEDICAID, SELFPAY ==
[2023-09-06 15:18] VITALS: BP 137/87; PULSE 90; RESP 16; TEMP 36.6; O2SAT 97
[2023-09-06 15:26] VITALS: BMI 23.7
--- NOTE | 2023-09-06 15:41 | EKG12_ITS ---
Test Reason : Blood Pressure : / mmHG Vent. Rate : 071 BPM Atrial Rate : 071 BPM P-R Int : 126 ms QRS Dur : 098 ms QT Int : 400 ms P-R-T Axes : 058 080 064 degrees QTc Int : 434 ms Normal sinus rhythm with sinus arrhythmia Normal ECG Confirmed by TWILA ALCANTARA, MARY ([id number]), assistant editor PACO MANZANO ([id number]) on 09/07/2023 2:13:44 PM Referred By: SCHUYLER Confirmed By:AMRY MATTSON MD
--- NOTE | 2023-09-06 15:41 | EX.ED.VIS.PS ---
HPI HPI - Psych History of Present Illness Chief Complaint: Suicidal Narrative Narrative: History and physical is mildly limited secondary to psychiatric condition. 38-year-old male past medical history of bipolar disorder, presents [facility] after being evaluated by floor service worker spring for medical clearance for placement for suicidal ideation. He states that he has been having problems with depression and anxiety and PTSD/panic attacks for 25 years. He stated that he has been incarcerated for 24 hours, and that he was sent here for further evaluation. Per floor service worker spring, he is pink slipped because of suicidal ideation. [facility] Medical History Sleep apnea Severe dextromethorphan use disorder Panic attack Anxiety Depression GERD (gastroesophageal reflux disease) Bipolar disorder Home Medications ?Medication ?Instructions ?Recorded ?Last Taken ?Type clonazepam 0.5 mg tablet 0.5 mg PO Q12H PRN anxiety 12/07/22 Unknown History divalproex 500 mg tablet,extended 500 mg PO DAILY 09/06/23 Unknown History release 24 hr gabapentin 600 mg tablet 600 mg PO TID 09/06/23 Unknown History hydroxyzine HCl 50 mg tablet 100 mg PO BID 09/06/23 Unknown History mirtazapine 45 mg tablet 45 mg PO QHS 09/06/23 Unknown History olanzapine 10 mg tablet 10 mg PO DAILY 09/06/23 Unknown History prazosin 2 mg capsule 2 mg PO QHS 09/06/23 Unknown History risperidone 3 mg tablet 3 mg PO BID 09/06/23 Unknown History trazodone 100 mg tablet 100 mg PO QHS 09/06/23 Unknown History Allergy/AdvReac Type Severity Reaction Status Date / Time No Known Allergies Allergy Verified 09/06/23 15:35 Social History household members: none and other details: Patient reports he has children and recently went degeneration so he could Smoking Status: Current every day smoker tobacco type: cigarettes ROS ROS ED Review of Systems ROS Unobtainable: due to mental condition EXAM Physical Exam Narrative Exam Narrative: Afebrile. Vital signs noted. HEENT: Normocephalic. Atraumatic. PERRL, EOMI. Neck soft and supple. No point tenderness or step off. Cardiovascular: Regular rate and rhythm. No murmurs, rubs, or gallops appreciated. Respiratory: No tachypnea. Lungs clear to auscultation bilaterally. Gastrointestinal: Abdomen soft, nontender, with normoactive bowel sounds. No rebound or guarding. Neurological: Awake. Alert. Nonfocal, nonlateralizing. Skin: No rash. Normal color. No pallor. Musculoskeletal: No pedal edema. Full range of motion extremities. Const Vital Signs: 09/06/23 15:18 Temperature 98 F Temperature Source Temporal Pulse Rate 90 Respiratory Rate 16 Blood Pressure 137/87 H Blood Pressure Mean 103 Pulse Ox 97 Oxygen Delivery Method Room Air MDM MDM MDM Narrative Medical decision making narrative: Patient has already been evaluated by crisis and is determined that he requires placement. Medical screening examination is grossly unremarkable. Medical screening labs will be obtained, then crisis recontacted to start on placement. EKG obtained and interpreted by myself independently as normal sinus rhythm with sinus arrhythmia at [address] changes. No STEMI. I reviewed his laboratory work and he has a normal WBC count of 7.1 with hemoglobin normal at 13.8, hematocrit 43.0, platelet count normal at 232. Electrolyte panel shows chloride slightly elevated at 108 which I think is nonspecific, remainder of the CMP is unremarkable. Ethyl alcohol negative at 8.0. Urine for drugs of abuse is positive for cannabinoids, amphetamines, and phencyclidine. Patient is he takes Klonopin and requesting something for anxiety so he was given Ativan 0.5 mg orally. He started to become more agitated, wanting the TV on, pacing around the room, and almost threatening sitter. He was given Geodon 20 mg orally. At this point in time, I do feel he is medically cleared for placement in a psychiatric facility. Currently, he has been accepted at [facility]. He is awaiting transportation. He will be signed out to the overnight physician to continue observation until transfer. He is in stable condition. Lab Data Attestation: I reviewed the patient's lab results. Labs: Laboratory Results - last 24 hr 09/06/23 09/06/23 15:29 16:00 WBC 7.1 RBC 4.59 L Hgb 13.8 Hct 43.0 MCV 93.7 MCH 30.1 MCHC 32.1 RDW Std Deviation 48.1 H RDW Coeff of Gabriel 14.0 Plt Count 232 MPV 8.9 Immature Gran % (Auto) 0.300 Neut % (Auto) 51.6 Lymph % (Auto) 36.8 [place] % (Auto) 9.9 Eos % (Auto) 0.8 Baso % (Auto) 0.6 Absolute Neuts (auto) 3.7 Absolute Lymphs (auto) 2.61 Nucleated RBC % 0 Sodium 139 Potassium 3.5 Chloride 108 H Carbon Dioxide 25.0 Anion Gap 6 BUN 18 Creatinine 1.21 Est GFR (MDRD) Af Amer 86 Est GFR (MDRD) Non-Af 71 BUN/Creatinine Ratio 14.9 Glucose 91 Calcium 8.9 Total Bilirubin 0.50 AST 32 ALT 24 Alkaline Phosphatase 65 Total Protein 7.1 Albumin 4.0 Globulin 3.1 Albumin/Globulin Ratio 1.3 Urine Opiates Screen NEGATIVE Urine Methadone Screen NEGATIVE Ur Barbiturates Screen NEGATIVE Ur Phencyclidine Scrn POSITIVE H Ur Amphetamines Screen POSITIVE H MDMA (Ecstasy) Screen NEGATIVE U Benzodiazepines Scrn NEGATIVE Urine Cocaine Screen NEGATIVE U Cannabinoids Screen POSITIVE H Ur Drug Screen Comment Ethyl Alcohol 8.0 Discharge Plan Triage Chief Complaint: Suicidal ED Provider: Nader Arceo Dx/Rx/DC Orders Prescriptions: No Action clonazepam 0.5 mg tablet 0.5 mg PO Q12H PRN (Reason: anxiety) gabapentin 600 mg tablet 600 mg PO TID olanzapine 10 mg tablet 10 mg PO DAILY hydroxyzine HCl 50 mg tablet 100 mg PO BID divalproex 500 mg tablet extended release 24 hr 500 mg PO DAILY mirtazapine 45 mg tablet 45 mg PO QHS risperidone 3 mg tablet 3 mg PO BID trazodone 100 mg tablet 100 mg PO QHS prazosin 2 mg capsule 2 mg PO QHS Primary Care Provider: William Castillo Referrals: William Castillo MD [Primary Care Provider] - Print Language: Mongolian Disposition Disposition: Psychiatric Hospital or Unit Discharge Location: [facility]
[2023-09-06 15:54] LABS: Absolute Lymphocyte Count 2.61 X10^3/uL (0.83-4.51); Absolute Neutrophil Count 3.7 X10^3/uL (2.0-7.7); Basophil# 0.04 X10^3/uL; Basophil% 0.6 % (0-1); Eosinophil# 0.06 X10^3/uL; Eosinophils% 0.8 % (0-5); Hemoglobin 13.8 g/dL (13.0-16.5); Lymphocyte # 2.61 X10^3/ul (0.83-4.51); Lymphocyte % 36.8 % (19-41); Mean Corp Hgb Conc 32.1 g/dL (32-36); Mean Corpuscular Hgb 30.1 pg (27.0-32.0); Mean Corpuscular Volume 93.7 fL (80-94); Mean Platelet Vol. 8.9 fl (6.2-12.0); Monocyte% 9.9 % (0-10); NRBC Flagged by Analyzer 0 % (0-5); Neutrophil # 3.66 X10^3/uL (2.7-7.7); Neutrophil % 51.6 % (47-70); Platelet Count 232 K/mm3 (150-450); RBC Distribution Width SD 48.1 fl (35.1-43.9); Red Blood Count 4.59 M/mm3 (4.6-6.2); White Blood Count 7.1 K/mm3 (4.4-11.0)
[2023-09-06 16:09] LABS: ALB/GLOB Ratio 1.3 RATIO (0.9-2.4); AST(SGOT) 32 U/L (15-37); Alanine Aminotransfer ALT/SGPT 24 U/L (16-61); Alkaline Phosphatase 65 U/L (45-117); Anion Gap 6 (5-15); BUN 18 mg/dL (7-18); BUN/Creat Ratio 14.9 RATIO (10-20); Calcium,Total 8.9 mg/dL (8.5-10.1); Chloride 108 mmol/L (98-107); Creatinine, Serum 1.21 mg/dL (0.70-1.30); EST Glomerular Filtration Rate 71 mL/min (>60); Est Glom Filt Rate - Afr Amer 86 mL/min (>60); Globulin 3.1 g/dL (2.2-4.2); Glucose 91 mg/dL (74-106); Potassium 3.5 mmol/L (3.5-5.1); Protein, Total 7.1 g/dL (6.4-8.2); Sodium Level 139 mmol/L (136-145)
[2023-09-06] MEDS: LORazepam 0.5 MG Tablet PO (16:16)
[2023-09-06 16:36] LABS: Amphetamine Urine VISTA POSITIVE (<1000 ng/mL); Barbiturate Urine VISTA NEGATIVE (< 200 ng/mL); Benzodiazepine Urine VISTA NEGATIVE (< 200 ng/mL); Cocaine Urine VISTA NEGATIVE (< 300 ng/mL); Ecstacy Urine VISTA NEGATIVE (< 500 ng/mL); Methadone Urine VISTA NEGATIVE (< 300 ng/mL); PCP Urine VISTA POSITIVE (< 25 ng/mL); THC Urine VISTA POSITIVE (< 50 ng/mL); Vista UDS pH Range 5
[2023-09-06] MEDS: Ziprasidone HCl 20 MG Capsule PO (16:47)
--- NOTE | 2023-09-06 16:59 | ED.RN ---
FAXED RESULTS TO [facility]
[2023-09-06] MEDS: RisperiDONE 1 MG Tablet 3 MG PO (21:43)
[2023-09-06] MEDS: Mirtazapine 15 MG Tablet 45 MG PO (21:44)
[2023-09-06] MEDS: Prazosin HCl 1 MG Capsule 2 MG PO (21:44)
[2023-09-06] MEDS: traZODone 100 MG Tablet PO (21:44)
[2023-09-07 00:21] VITALS: BP 108/67; PULSE 95; RESP 18; TEMP 36.7; O2SAT 99
--- NOTE | 2023-09-07 02:23 | ED.RN ---
I ATTEMPTED TO CALL REPORT TO [facility], RECEIVING FACILITY NURSE REFUSED REPORT AT THIS TIME. SHE SAID, I WILL CALL BACK IN A FEW MINUTES.
--- NOTE | 2023-09-07 02:35 | ED.RN ---
REPORT CALLED TO [facility] NURSE, ELIZABETH, AT THIS TIME.
[2023-09-07] MEDS: Gabapentin 300 MG Capsule 600 MG PO (06:38)
== END 2023-09-07 08:00 ==
PROVIDERS: Emergency Provider Emergency Medicine; PCP Family Medicine; Visit Provider Emergency Medicine
DX: R45.851 Suicidal ideations (principal); F31.9 Bipolar disorder, unspecified; F17.210 Nicotine dependence, cigarettes, uncomplicated; F41.9 Anxiety disorder, unspecified; K21.9 Gastro-esophageal reflux disease without esophagitis; Z79.899 Other long term (current) drug therapy; R45.1 Restlessness and agitation
CPT/HCPCS: 80053; 80307; 80320; 85025; 93005; 99285; G0480

== ENCOUNTER 2023-09-27 15:24 | Emergency (ER) | payer MEDICARE, MEDICAID, SELFPAY ==
[2023-09-27 15:24] VITALS: BP 128/87; PULSE 91; RESP 14; TEMP 36.6; O2SAT 96; BMI 25.4
[2023-09-27 17:24] VITALS: BP 122/80; PULSE 82; RESP 18; O2SAT 98
--- NOTE | 2023-09-27 17:42 | EDS_ITS ---
HPI History of Present Illness Chief Complaint: Anxiety Detail of Chief Complaint: Per triage he is here for anxiety. He states he is here for anxiety. Informant: patient Onset/Context/Timing Onset: Today Context: Sudden Onset Timing: Intermittent Quality: Anxious because he did not hear from Rin regarding detox Location: Detox in [facility] Current Severity: Gone Maximum Severity: Moderate Worsened by: No communication with contact and service clerks supervisor Relieved by: After he received a call from contact and service clerks supervisor Associated Symptoms Associated Symptoms: He is asking for something to eat. Narrative Narrative: Patient is a 38-year-old male. He admits to using amphetamines. His med list includes a benzodiazepine and gabapentin. He is also on risperidone, trazodone and other psychiatric meds. He informed me that he needs detox from amphetamines. Spoke with the contact and service clerks supervisor Rin. She informed me that the detox centers, [facility] would wants his system free of clonazepam. She was informed that this has a very high long half-life we could not admit him with no symptoms until the medication cleared from his system. I informed I will be glad to help but since he is having no symptoms of withdrawal and his drug of choice is amphetamines which we do not admit patients for that she needs to contact the detox center and determine what else can be done. Prior similar symptoms: Yes Recent Illness/Hospitalization: Yes [facility] Medical History Sleep apnea Severe dextromethorphan use disorder Panic attack Anxiety Depression GERD (gastroesophageal reflux disease) Bipolar disorder Home Medications ?Medication ?Instructions ?Recorded ?Last Taken ?Type clonazepam 0.5 mg tablet 0.5 mg PO Q12H PRN anxiety 12/07/22 Unknown History divalproex 500 mg tablet,extended 500 mg PO DAILY 09/06/23 Unknown History release 24 hr gabapentin 600 mg tablet 600 mg PO TID 09/06/23 Unknown History hydroxyzine HCl 50 mg tablet 100 mg PO BID 09/06/23 Unknown History mirtazapine 45 mg tablet 45 mg PO QHS 09/06/23 Unknown History olanzapine 10 mg tablet 10 mg PO DAILY 09/06/23 Unknown History prazosin 2 mg capsule 2 mg PO QHS 09/06/23 Unknown History risperidone 3 mg tablet 3 mg PO BID 09/06/23 Unknown History trazodone 100 mg tablet 100 mg PO QHS 09/06/23 Unknown History Allergy/AdvReac Type Severity Reaction Status Date / Time No Known Allergies Allergy Verified 09/27/23 15:25 Social History household members: none and other details: Patient reports he has children and recently went degeneration so he could Smoking Status: Current every day smoker tobacco type: cigarettes ROS ROS ED Constitutional Constitutional ED: Denies chills, fever(s), subjective or sweats Eyes Eyes: Denies blurry vision, change in vision or diplopia ENT ENT ED: Denies ear pain, rhinorrhea or sore throat Cardiovascular Cardiovascular: Denies chest pain, orthopnea, palpitations or racing heartbeat Respiratory/Chest Respiratory/Chest: Denies cough, dyspnea, dyspnea on exertion or orthopnea Gastrointestinal Gastrointestinal: Denies abdominal pain, diarrhea, nausea or vomiting Genitourinary Genitourinary ED: Denies dysuria, hematuria or urinary frequency Musculoskeletal Musculoskeletal: Denies arthralgias, back pain or myalgias Integumentary Denies rash Neurologic Neurologic: Denies headache(s), paresthesias or weakness Psychiatric Psychiatric: Reports anxiety and depression; Denies suicidal ideation or suicidal thoughts Endocrine Endocrinology: Denies cold intolerance or heat intolerance Hematologic/Lymphatic Hematologic/Lymphatic: Reports systems reviewed and no addt'l complaints, except as documented EXAM Physical Exam Const Vital Signs: 09/27/23 15:24 09/27/23 17:24 Temperature 98 F Temperature Source Temporal Pulse Rate 91 82 Respiratory Rate 14 18 Blood Pressure 128/87 H 122/80 H Blood Pressure Mean 100 94 Pulse Ox 96 98 Oxygen Delivery Method Room Air Room Air Positive well nourished, well developed and unkempt General Appearance ED: unkempt, well developed and NAD; Negative for cyanotic, diaphoretic or pallor HEENT Reports dry mucous membranes HEENT Narrative: Head is atraumatic and normocephalic. Ears normal. Nares patent. Posterior pharynx out erythema or exudate. Mouth ED: Yes dry mucous membranes Mouth: dry mucous membranes Eyes PERRL and EOMs intact bilaterally Eyes Narrative: There is no nystagmus. General Eye ED: Negative for pale conjunctiva or scleral icterus Neck no lymphadenopathy, supple and no JVD Chest Wall inspection of chest normal Resp normal respiratory effort and clear to auscultation bilaterally Cardio regular rate, regular rhythm, S1 normal heart sound, S2 normal heart sound and no murmurs GI normal to inspection, nondistended, normoactive bowel sounds, non-tender and non-distended; Negative for hepatosplenomegaly Extremity normal to inspection Extremity Narrative: No neurovascular compromise. There is no clubbing. General Extremety ED: Negative for edema or tenderness General Extremity: Negative for edema Neuro oriented x3, CN's II-XII intact bilaterally and no sensory deficits noted Sensorium / Orientation: alert Motor Exam: strength 5/5 throughout Psych mental status grossly normal Appearance: unkempt Skin no rashes or lesions noted, no wounds and skin turgor normal General Skin Exam: Negative for jaundice or pallor MDM MDM MDM Narrative Medical decision making narrative: Patient was ordered a food tray. Will wait for a call back from the contact and service clerks supervisor regarding the detox at [facility], [facility]. Treatment and Re-Evaluation :: box order person called back. Arrangements have been made for a ride to pick him up from the ER to take to [facility]. Discharge Plan Triage Chief Complaint: Anxiety ED Provider: Monty Mendoza Dx/Rx/DC Orders Clinical Impression: Amphetamine abuse, Anxiety reaction, Bipolar affective disorder, Elevated BP without diagnosis of hypertension Instructions: ED Drug Abuse Prescriptions: No Action clonazepam 0.5 mg tablet 0.5 mg PO Q12H PRN (Reason: anxiety) gabapentin 600 mg tablet 600 mg PO TID olanzapine 10 mg tablet 10 mg PO DAILY hydroxyzine HCl 50 mg tablet 100 mg PO BID divalproex 500 mg tablet extended release 24 hr 500 mg PO DAILY mirtazapine 45 mg tablet 45 mg PO QHS risperidone 3 mg tablet 3 mg PO BID trazodone 100 mg tablet 100 mg PO QHS prazosin 2 mg capsule 2 mg PO QHS Primary Care Provider: William Castillo Referrals: William Castillo MD [Primary Care Provider] - Print Language: Malian Disposition Disposition: Home, Self Care
--- NOTE | 2023-09-27 18:30 | ED.RN ---
This RN spoke with a Kenzie as [facility] at [phone]. She is arranging a transport from this facility to their facility in [place]. This RN notified Dr. Mendoza who stated he would right patients discharge paperwork so that patient can wait in the waiting room for his ride.
[2023-09-27 19:00] VITALS: BP 128/78; PULSE 88; RESP 16; O2SAT 98
[2023-09-27 19:32] VITALS: BP 115/76; PULSE 71; RESP 12; TEMP 36.1; O2SAT 100
== END 2023-09-27 19:33 | disposition home or self-care (01) ==
PROVIDERS: Emergency Provider Emergency Medicine; PCP Family Medicine; Visit Provider Emergency Medicine
DX: F15.10 Other stimulant abuse, uncomplicated (principal); F31.9 Bipolar disorder, unspecified; F41.1 Generalized anxiety disorder; F17.210 Nicotine dependence, cigarettes, uncomplicated; R03.0 Elevated blood-pressure reading, without diagnosis of hypertension; K21.9 Gastro-esophageal reflux disease without esophagitis; Z79.899 Other long term (current) drug therapy
CPT/HCPCS: 99282

== ENCOUNTER 2023-10-08 02:09 | Emergency (ER) | payer MEDICARE, SELFPAY ==
[2023-10-08 02:10] VITALS: BP 128/75; PULSE 79; RESP 16; TEMP 36.8; O2SAT 98; BMI 26.2
--- NOTE | 2023-10-08 02:56 | RAD_ITS ---
EXAM: XR ABDOMEN, 1 VIEW CLINICAL INDICATION: CONSTIPATION TECHNIQUE: Frontal supine view of the abdomen/pelvis. COMPARISON: No relevant prior studies available. FINDINGS: LOWER THORAX: No acute pathology. GASTROINTESTINAL TRACT: The rectum is distended up to about 7 cm in diameter with fecal material. The rest of the colon appears normal. ORGANS: Unremarkable as visualized. No organomegaly. No abnormal calcifications. BONES/JOINTS: No acute pathology. SOFT TISSUES: No acute pathology. RAD/Abdomen Single View IMPRESSION: Mild rectal fecal impaction. Electronically Signed: Brian Kennedy MD at 4:07 EDT ,
--- NOTE | 2023-10-08 03:21 | EDS_ITS ---
HPI History of Present Illness Chief Complaint: Constipation Informant: patient Narrative Narrative: Patient presents via EMS secondary to constipation. He states he has not had a bowel movement the past 4 days. He also reports that he has not eaten in the past 4 days. He recently got out of a psychiatric facility and reportedly was evicted. He has not been taking his medications. [facility] Medical History Sleep apnea Severe dextromethorphan use disorder Panic attack Anxiety Depression GERD (gastroesophageal reflux disease) Bipolar disorder Home Medications ?Medication ?Instructions ?Recorded ?Last Taken ?Type clonazepam 0.5 mg tablet 0.5 mg PO Q12H PRN anxiety 12/07/22 Unknown History divalproex 500 mg tablet,extended 500 mg PO DAILY 09/06/23 Unknown History release 24 hr gabapentin 600 mg tablet 600 mg PO TID 09/06/23 Unknown History mirtazapine 45 mg tablet 45 mg PO QHS 09/06/23 Unknown History prazosin 2 mg capsule 2 mg PO QHS 09/06/23 Unknown History glycerin (adult) 1 supp ND DAILY PRN constipation 10/08/23 Unknown Rx #12 ea polyethylene glycol 3350 17 17 g PO DAILY #119 grams 10/08/23 Unknown Rx gram/dose oral powder (Miralax) Allergy/AdvReac Type Severity Reaction Status Date / Time No Known Allergies Allergy Verified 10/08/23 02:15 Social History household members: none and other details: Patient reports he has children and recently went degeneration so he could Smoking Status: Current every day smoker tobacco type: cigarettes ROS ROS ED Constitutional Constitutional ED: Denies chills or fever(s) Eyes Eyes: Denies discharge from eye(s) ENT ENT ED: Denies discharge from eye(s), rhinorrhea or sore throat Cardiovascular Cardiovascular: Denies chest pain or palpitations Respiratory/Chest Respiratory/Chest: Denies cough or dyspnea Gastrointestinal Gastrointestinal: Reports abdominal pain and constipation; Denies diarrhea, nausea or vomiting Musculoskeletal Musculoskeletal: Denies back pain or extremity pain Integumentary Denies Abrasions or rash Neurologic Neurologic: Denies headache(s) or weakness Psychiatric Psychiatric: Denies anxiety or depression Allergic/Immunologic Allergic/Immunologic ED: Denies lip swelling or urticaria EXAM Physical Exam Const Vital Signs: 10/08/23 02:10 10/08/23 04:10 10/08/23 06:00 Temperature 98.2 F Temperature Source Temporal Pulse Rate 79 Respiratory Rate 16 18 18 Blood Pressure 128/75 H Blood Pressure Mean 92 Pulse Ox 98 Oxygen Delivery Method Room Air Positive well nourished and well developed General Appearance ED: well developed HEENT Reports moist mucous membranes Eyes EOMs intact bilaterally Chest Wall inspection of chest normal and palpation of chest normal Resp normal respiratory effort and clear to auscultation bilaterally Cardio regular rate and regular rhythm GI normal to inspection, nondistended, normoactive bowel sounds and non-tender Extremity normal to inspection Neuro oriented x3 and no sensory deficits noted Motor Exam: strength 5/5 throughout Psych mental status grossly normal Skin no rashes or lesions noted MDM MDM MDM Narrative Medical decision making narrative: Abdominal x-ray obtained to evaluate for potential constipation versus bowel obstruction versus partial bowel obstruction. Radiography Diagnostic Testing: Clinical Impression(s) from Imaging Studies KUB X-Ray 10/08/23 02:56 IMPRESSION: Mild rectal fecal impaction. Electronically Signed: Brian Kennedy MD at 4:07 EDT , Treatment and Re-Evaluation :: X-ray per my interpretation does reveal stool load in the rectum, but no evidence of significant constipation or bowel obstruction. Radiology interpretation reviewed and agrees. Patient was able to sleep for a while here. He easily awakens. Test results are discussed with him. I will write him a prescription for MiraLAX as well as glycerin suppositories. Patient needs to eat a regular diet. He will be discharged at this time. Patient does not feel that he needs psychiatric evaluation and has been cooperative during his ED stay. Discharge Plan Triage Chief Complaint: Constipation ED Provider: Sridevi Shelton Dx/Rx/DC Orders Clinical Impression: Constipation Instructions: ED Constipation (Adult) Prescriptions: New polyethylene glycol 3350 [Miralax] 17 gram/dose powder 17 g PO DAILY Qty: 119 0RF glycerin (adult) Suppository 1 supp ND DAILY PRN (Reason: constipation) Qty: 12 0RF No Action clonazepam 0.5 mg tablet 0.5 mg PO Q12H PRN (Reason: anxiety) gabapentin 600 mg tablet 600 mg PO TID divalproex 500 mg tablet extended release 24 hr 500 mg PO DAILY mirtazapine 45 mg tablet 45 mg PO QHS prazosin 2 mg capsule 2 mg PO QHS Primary Care Provider: William Castillo Referrals: William Castillo MD [Primary Care Provider] - Print Language: Nepali Disposition Disposition: Home, Self Care
[2023-10-08 04:10] VITALS: RESP 18
[2023-10-08 06:00] VITALS: RESP 18
[2023-10-08 06:33] VITALS: BP 134/60; PULSE 78; RESP 18; TEMP 36.8; O2SAT 97
== END 2023-10-08 06:37 | disposition home or self-care (01) ==
PROVIDERS: Emergency Provider Emergency Medicine; PCP Family Medicine; Visit Provider Emergency Medicine
DX: K59.00 Constipation, unspecified (principal); F17.210 Nicotine dependence, cigarettes, uncomplicated; K21.9 Gastro-esophageal reflux disease without esophagitis; Z59.89 Other problems related to housing and economic circumstances
CPT/HCPCS: 74018; 99282

== ENCOUNTER 2023-10-09 14:40 | Emergency (ER) | payer MEDICARE, MEDICAID, SELFPAY ==
[2023-10-09 14:41] VITALS: BP 120/97; PULSE 91; RESP 16; TEMP 37.2; O2SAT 98; BMI 25.7
--- NOTE | 2023-10-09 15:12 | ED.RN ---
Pt was asked to put a gown on. Pt came out with the gown over his clothes. Pt started saying the security and the Dr assured him that he was a good father so he was leaving. Pt is not suicidal or homicidal. He is going to go. He walked out of the department without difficulty. Patient left and went down the drive and went towards [facility]. Dr Nunn aware
== END 2023-10-09 15:25 | disposition left against medical advice (07) ==
LOC: ED 14:58
PROVIDERS: Emergency Provider Emergency Medicine; PCP Family Medicine; Visit Provider Emergency Medicine
DX: Z53.21 Procedure and treatment not carried out due to patient leaving prior to being seen by health care provider (principal)
CPT/HCPCS: 99282

== ENCOUNTER → 2023-10-09 | Emergency (ER) | payer MEDICARE, MEDICAID, SELFPAY ==
[2023-10-09 10:06] VITALS: BP 135/99; PULSE 102; RESP 16; TEMP 36.1; O2SAT 97; BMI 25.4
--- NOTE | 2023-10-09 10:20 | EX.ED.VIS.PS ---
HPI HPI - Psych History of Present Illness Chief Complaint: Mental Health Informant: patient and police/sonogram technician Narrative Narrative: 38-year-old male well-known to this department with a history of mental health issues presents saying that he does not want to waste anyone's time, but he was made to feel today like he was bad father which made him going to freak out mode. Soon after he begins this story, he states that he is doing better right now, and he is apologetic for being here, police entered the room and state to the patient not to worry, his kids are fine and safe and he is further reassured and asks if he can wash his face, which we assist him in doing at the sink and drying off. He is not suicidal or homicidal, and states that he does not feel he needs his medications, but is open to taking them again if I recommend them. [facility] Medical History Sleep apnea Severe dextromethorphan use disorder Panic attack Anxiety Depression GERD (gastroesophageal reflux disease) Bipolar disorder Home Medications ?Medication ?Instructions ?Recorded ?Last Taken ?Type clonazepam 0.5 mg tablet 0.5 mg PO Q12H PRN anxiety 12/07/22 Unknown History polyethylene glycol 3350 17 17 g PO DAILY #119 grams 10/08/23 Unknown Rx gram/dose oral powder (Miralax) divalproex 500 mg tablet,extended 500 mg PO DAILY #30 tabs 10/09/23 Unknown Rx release 24 hr gabapentin 600 mg tablet 600 mg PO TID 30 days #90 tabs 10/09/23 Unknown Rx mirtazapine 45 mg tablet 45 mg PO QHS 30 days #30 tabs 10/09/23 Unknown Rx prazosin 2 mg capsule 2 mg PO QHS 30 days #30 caps 10/09/23 Unknown Rx Allergy/AdvReac Type Severity Reaction Status Date / Time No Known Allergies Allergy Verified 10/09/23 10:06 Social History household members: none and other details: Patient reports he has children and recently went degeneration so he could Smoking Status: Current every day smoker tobacco type: cigarettes ROS ROS ED Cardiovascular Cardiovascular: Denies chest pain Gastrointestinal Gastrointestinal: Denies abdominal pain Neurologic Neurologic: Denies headache(s) Psychiatric Psychiatric: Reports anxiety; Denies suicidal ideation or suicidal thoughts EXAM Physical Exam Const Vital Signs: 10/09/23 10:06 Temperature 97 F L Temperature Source Temporal Pulse Rate 102 H Respiratory Rate 16 Blood Pressure 135/99 H Blood Pressure Mean 111 Pulse Ox 97 Oxygen Delivery Method Room Air Positive well nourished and well developed General Appearance ED: well developed and NAD Eyes PERRL and EOMs intact bilaterally Neck supple Resp normal respiratory effort Extremity normal to inspection General Extremety ED: Negative for edema General Extremity: Negative for edema Neuro oriented x3, CN's II-XII intact bilaterally, no sensory deficits noted and gait normal Shiva Coma Scale: document GCS findings Spontaneous Obeys Commands Oriented 15 Motor Exam: strength 5/5 throughout Psych cooperative, denies hallucinations, denies homicidal ideation and denies suicidal ideation Appearance: grossly normal, appropriate and well kempt Attitude: calm and engaged Activity / Motor Behavior: appropriate eye contact Speech: pressured Thought Process: tangential Thought Content: delusion(s) Delusional Thought Content Details: Positive for grandiose (I'm clairvoyant) Skin Lesions: no lesions Rashes: no rashes MDM MDM MDM Narrative Medical decision making narrative: animal control officer and I both spent some time trying to convince Mr. Vaughn that if his mental health medications were prescribed to him, they are recommended for his disorders and we recommend taking them. He is concerned that multiple prescribers have given him prescriptions before. I reassured him, that I would peruse his list and what ever prescription refills we give him will be safe for him to take. He is apprehensive about taking his prescriptions, and since it is unknown if he is truly going to take them or not, I am empowering the patient to do the right thing for himself by giving him paper prescriptions and encouraging him to go to the pharmacy. Police escorted him out as he wants to go outside so that he can smoke. He was also counseled about the dangers of smoking. Discharge Plan Triage Chief Complaint: Mental Health Other Complaint: Meds Only ED Provider: Fito Nunn Dx/Rx/DC Orders Clinical Impression: Acute reaction to situational stress, Encounter for smoking cessation counseling, Encounter for medication refill Instructions: Responding Better to Stress Prescriptions: Continued clonazepam 0.5 mg tablet 0.5 mg PO Q12H PRN (Reason: anxiety) polyethylene glycol 3350 [Miralax] 17 gram/dose powder 17 g PO DAILY Qty: 119 0RF gabapentin 600 mg tablet 600 mg PO TID 30 Days Qty: 90 0RF divalproex 500 mg tablet extended release 24 hr 500 mg PO DAILY Qty: 30 0RF mirtazapine 45 mg tablet 45 mg PO QHS 30 Days Qty: 30 0RF prazosin 2 mg capsule 2 mg PO QHS 30 Days Qty: 30 0RF Discontinued glycerin (adult) Suppository 1 supp [place] DAILY PRN (Reason: constipation) Qty: 12 0RF Primary Care Provider: William Castillo Referrals: William Castillo MD [Primary Care Provider] - As Needed Print Language: Greenlandic Disposition Disposition: Home, Self Care
[2023-10-09 10:25] VITALS: BMI 25.4
--- NOTE | 2023-10-09 14:57 | EDS_ITS ---
HPI HPI - Psych History of Present Illness Chief Complaint: Mental Health Informant: patient and EMS Narrative Narrative: Patient was seen here several hours ago by myself, he now is brought back he according to EMS and staff, was saying he was hearing people talk about somebody who goes unnamed in the community raping women and children and he is deeply concerned about it. He cannot tell me many details about anything, he is tangential, the history is extremely limited due to being tangential and having flight of ideas when he does talk to me, he is not nearly as talkative as he was several hours ago but denies taking any medications, illicit drugs, or alcohol. He states he considered feeling the prescriptions that I gave him but he has not. He talked to a friend of his who is a girl named Jeff who said that she was very concerned about him and she wanted him to get help and so now he is here wanting to talk to a counselor and when I asked him about that and offered to have a counselor talk to him, he states now he is having second thoughts and does not know if he wants to or not. He is feeling depressed about the fact that somebody wants to rape women and children and when I asked him about if he is suicidal or homicidal he states no and no. [facility] Medical History Sleep apnea Severe dextromethorphan use disorder Panic attack Anxiety Depression GERD (gastroesophageal reflux disease) Bipolar disorder Home Medications ?Medication ?Instructions ?Recorded ?Last Taken ?Type clonazepam 0.5 mg tablet 0.5 mg PO Q12H PRN anxiety 12/07/22 Unknown History polyethylene glycol 3350 17 17 g PO DAILY #119 grams 10/08/23 Unknown Rx gram/dose oral powder (Miralax) divalproex 500 mg tablet,extended 500 mg PO DAILY #30 tabs 10/09/23 Unknown Rx release 24 hr gabapentin 600 mg tablet 600 mg PO TID 30 days #90 tabs 10/09/23 Unknown Rx mirtazapine 45 mg tablet 45 mg PO QHS 30 days #30 tabs 10/09/23 Unknown Rx prazosin 2 mg capsule 2 mg PO QHS 30 days #30 caps 10/09/23 Unknown Rx Allergy/AdvReac Type Severity Reaction Status Date / Time No Known Allergies Allergy Verified 10/09/23 10:06 Social History household members: none and other details: Patient reports he has children and recently went degeneration so he could Smoking Status: Current every day smoker tobacco type: cigarettes ROS ROS ED Constitutional Constitutional ED: Denies chills or fever(s) Eyes Eyes: Denies change in vision or diplopia ENT ENT ED: Denies rhinorrhea or sore throat Cardiovascular Cardiovascular: Denies chest pain or palpitations Respiratory/Chest Respiratory/Chest: Denies cough or dyspnea Gastrointestinal Gastrointestinal: Denies abdominal pain, diarrhea, nausea or vomiting Genitourinary Genitourinary ED: Denies dysuria or hematuria Musculoskeletal Musculoskeletal: Denies back pain or neck pain Integumentary Denies abscess or rash Neurologic Neurologic: Denies headache(s), paresthesias or weakness Psychiatric Psychiatric: Reports anxiety and depression; Denies suicidal ideation or suicidal thoughts EXAM Physical Exam Const Vital Signs: 10/09/23 10:06 Temperature 97 F L Temperature Source Temporal Pulse Rate 102 H Respiratory Rate 16 Blood Pressure 135/99 H Blood Pressure Mean 111 Pulse Ox 97 Oxygen Delivery Method Room Air Positive well nourished and well developed General Appearance ED: well developed and NAD HEENT Reports moist mucous membranes normocephalic and atraumatic Eyes PERRL and EOMs intact bilaterally Neck full ROM and supple Resp normal respiratory effort and clear to auscultation bilaterally Cardio regular rate, regular rhythm and no murmurs GI non-tender and non-distended Auscultation: normoactive bowel sounds Palpation: soft Back/Spine no CVA tenderness General Back: other FROM Extremity normal to inspection General Extremety ED: Negative for edema, pulses abnormal or tenderness General Extremity: Negative for edema or pulses abnormal Neuro oriented x3, CN's II-XII intact bilaterally and no sensory deficits noted Sensorium / Orientation: awake and alert Motor Exam: strength 5/5 throughout Psych cooperative Appearance: grossly normal, appropriate and well kempt Attitude: calm Activity / Motor Behavior: appropriate eye contact Speech: slow and soft Mood & Affect: depressed and sad Thought Process: flight of ideas, loose associations and tangential Attention / Concentration: attention grossly intact and concentration grossly intact Memory / Cognition: memory grossly intact Skin no rashes or lesions noted and no wounds MDM MDM MDM Narrative Medical decision making narrative: I discussed with patient that since he wanted to talk to crisis I was more than happy to consult, we will just need blood and urine first. He seemed okay with this until nurses came and and again began to change into, he then became very anxious and change his mind and decided he wanted to leave. He is having symptoms of anxiety, possibly bipolar, possibly with psychotic features. This is not new for him. He is not doing anything dangerous or putting himself or others in harm's way, he is demanding to leave and at this time I have not pink slipped him, I tried to convince him to stay and speak with crisis as I believe that if he does not want to take his medications he may benefit from an evaluation but he refuses. Discharge Plan Triage Chief Complaint: Mental Health Other Complaint: Meds Only ED Provider: Fito Nunn Dx/Rx/DC Orders Clinical Impression: Acute reaction to situational stress, Encounter for smoking cessation counseling Instructions: Responding Better to Stress Prescriptions: Continued clonazepam 0.5 mg tablet 0.5 mg PO Q12H PRN (Reason: anxiety) polyethylene glycol 3350 [Miralax] 17 gram/dose powder 17 g PO DAILY Qty: 119 0RF gabapentin 600 mg tablet 600 mg PO TID 30 Days Qty: 90 0RF divalproex 500 mg tablet extended release 24 hr 500 mg PO DAILY Qty: 30 0RF mirtazapine 45 mg tablet 45 mg PO QHS 30 Days Qty: 30 0RF prazosin 2 mg capsule 2 mg PO QHS 30 Days Qty: 30 0RF Discontinued glycerin (adult) Suppository 1 supp [place] DAILY PRN (Reason: constipation) Qty: 12 0RF Primary Care Provider: William Castillo Referrals: William Castillo MD [Primary Care Provider] - As Needed Print Language: French Disposition Disposition: Elopement
== END | disposition left against medical advice (07) ==
PROVIDERS: Emergency Provider Emergency Medicine; PCP Family Medicine; Visit Provider Emergency Medicine
DX: F43.0 Acute stress reaction (principal); Z76.0 Encounter for issue of repeat prescription; F41.9 Anxiety disorder, unspecified; F17.210 Nicotine dependence, cigarettes, uncomplicated; K21.9 Gastro-esophageal reflux disease without esophagitis; Z79.899 Other long term (current) drug therapy; F32.A Depression, unspecified
CPT/HCPCS: 99283

== ENCOUNTER 2023-10-10 03:55 | Emergency (ER) | payer MEDICARE, MEDICAID, SELFPAY ==
[2023-10-10] VITALS (8 sets, daily range): BP systolic 98–136; BP diastolic 72–94; PULSE 57–77; RESP 14–18; TEMP 36.2; O2SAT 98–100; BMI 26.5
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
[2023-10-10] MEDS: Ziprasidone IM 20 MG/ML VIAL IM ×2 (04:16→19:25)
[2023-10-10] MEDS: Midazolam 5 MG/ML Syringe IM (04:16)
[2023-10-10] MEDS: DiphenhydrAMINE 50 MG/ML Syringe IM (04:16)
--- NOTE | 2023-10-10 04:20 | ED.RN ---
Patient arrives very agitated, patient refusing vitals at first. After vitals obtained patient demanded a blanket, after being given one he threw it at this RN and on the floor. Patient refusing to get into gown, security and PD at bedside. Patient changes. Pt asked to go to restroom this RN escorts him and then he starts yelling at this RN stating I'm mean and blankets are illegal everything is illegal Pt now refusing all tests. Pt started screaming obscenities at the Dr. Medications were ordered and given per MAR with security and PD at bedside.
[2023-10-10 04:45] LABS: Absolute Lymphocyte Count 2.48 X10^3/uL (0.83-4.51); Basophil# 0.03 X10^3/uL; Basophil% 0.5 % (0-1); Eosinophil# 0.08 X10^3/uL; Eosinophils% 1.3 % (0-5); Hematocrit 42.1 % (40-54); Hemoglobin 14.3 g/dL (13.0-16.5); Lymphocyte # 2.48 X10^3/ul (0.83-4.51); Lymphocyte % 40.8 % (19-41); Mean Corpuscular Hgb 29.5 pg (27.0-32.0); Mean Platelet Vol. 8.8 fl (6.2-12.0); Monocyte# 0.52 X10^3/uL; Monocyte% 8.6 % (0-10); NRBC Flagged by Analyzer 0 % (0-5); Neutrophil # 2.96 X10^3/uL (2.7-7.7); Neutrophil % 48.6 % (47-70); Platelet Count 229 K/mm3 (150-450); RBC Distribution Width CV 13.1 % (11.6-14.6); RBC Distribution Width SD 41.6 fl (35.1-43.9); Red Blood Count 4.84 M/mm3 (4.6-6.2); White Blood Count 6.1 K/mm3 (4.4-11.0)
[2023-10-10 05:00] LABS: Anion Gap 8 (5-15); BUN 21 mg/dL (7-18); BUN/Creat Ratio 18.9 RATIO (10-20); Chloride 109 mmol/L (98-107); Creatinine, Serum 1.11 mg/dL (0.70-1.30); EST Glomerular Filtration Rate 79 mL/min (>60); Est Glom Filt Rate - Afr Amer 95 mL/min (>60); Estimated Creatinine Clearance 93.17 ml/min; Glucose 102 mg/dL (74-106); Potassium 3.4 mmol/L (3.5-5.1); Sodium Level 141 mmol/L (136-145)
[2023-10-10 05:10] LABS: Alcohol, Blood (Medical)-Serum < 3.0 mg/dL
[2023-10-10 09:51] LABS: Amphetamine Urine VISTA NEGATIVE (<1000 ng/mL); Barbiturate Urine VISTA NEGATIVE (< 200 ng/mL); Benzodiazepine Urine VISTA POSITIVE (< 200 ng/mL); Cocaine Urine VISTA NEGATIVE (< 300 ng/mL); Ecstacy Urine VISTA NEGATIVE (< 500 ng/mL); Methadone Urine VISTA NEGATIVE (< 300 ng/mL); PCP Urine VISTA NEGATIVE (< 25 ng/mL); THC Urine VISTA POSITIVE (< 50 ng/mL); Vista UDS pH Range 5
--- NOTE | 2023-10-10 10:38 | ED.RN ---
Gregory to see patient
[2023-10-10] MEDS: LORazepam 1 MG Tablet PO ×2 (10:46→15:23)
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
--- NOTE | 2023-10-10 19:19 | ED.RN ---
Patient out in the hallways yelling and screaming, Patient talking inappropriate to social work. Pt escorted back into room by security. Pt now threatening harm against staff. Dr. Schaefer made aware, medication ordered and administered per MAR. Pt continuously screaming i better get a fucking snack and a pop or I'm going to hurt someone Pt was asked repeatedly to get back in bed and if he can quit screaming he will get a snack.
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
--- NOTE | 2023-10-10 20:32 | ED.RN ---
Per Leia DICKENS she spoke with [facility] stating that patient is still accepted but patient will have to wait 4 hours after he is out of restraints to be transported there.
--- NOTE | 2023-10-10 21:44 | ED.RN ---
Patient meets criteria for restraint removal. restraints removed at 2130. Pt is sleepy but following commands. Given sandwich and soda.
--- NOTE | 2023-10-10 22:25 | CM.ED ---
Social Work 174: Due to last hospitalization a month ago at [facility] ([phone]), called this facility and there are beds available. Confirmed fax and faxed to [phone].: 1830 (approximately): Ale from [facility] called to ask some clarifying questions. Answered questions and offered to check with nursing on a couple of questions but Juan Migueldeann said this was okay. Ale stated patient can be accepted to [facility]. Asked for nurse to nurse report and ETA be called to [phone]. Also asked for updated pink slip with [facility] indicated as accepting hospital be faxed. 190: Sridevi Dominguez updated physician about pink slip need. [place] slip faxed to [facility]. press secretary calling for transport for patient. 1909: This specifications writer, along with COUNTY SURVEYOR Sridevi Dominguez to patient's room. Updated to plan for [facility]. Patient up and moving in room, sun glasses on, smiling and happy. However, as conversation went on patient made comments that thought we were friends and would support patient in being free. Patient attempted to place blame on social workers for making patient's son cry, since patient is going to another hospital. Patient talked of wanting to be free, talking of aliens, and that would just teleport out of the hospital but likely others would think patient just escaped. Patient laughed and made comments about being at [facility] ED for a couple more days waiting on transport. When SW discussed updating patient's social work case manager of destination for continuity of care, patient made comment that he probably did all of this to me. After social workers left the room, patient to doorway making comments to this specifications writer, and telling staff she's my old lady. 2009: This specifications writer heard patient escalate in the department, yelling and screaming. Spoke with nursing and patient has been medicated and now in soft restraints for safety of self and others. Spoke with Sisi in the intake department at [facility]. Updated that patient had a behavioral disturbance requiring medication and physical restraint. Sisi reports patient is still accepted, but need to be free of physical restraint for 4 hours before admission to [facility]; 2 hours free of Chemical restraint. Updated Chad Morris RN of requirements. Sisi asks to be called with ETA and then will update the nursing unit. Number for report: [phone], option #1 for admissions/intake. Plan: [facility] once patient has been out of physical restraints for 4 hours. Handoff being given to [facility] in case issues arise with placement overnight. -Leia MCKNIGHT
--- NOTE | 2023-10-11 00:01 | CM.ED ---
Social Work Handoff to Michelle at [facility] Crisis department, in case any concerns or changes occur with placement at [facility]. Handoff number to [facility] given to nursing for report, whenever patient is able to be transported. -JUAN LUIS Ríos
--- NOTE | 2023-10-11 00:27 | CM.ED ---
Scarlet from [facility] called to check on status of patient. Reviewed chart and updated to time of restraint removal. Provided ED number if Scarlet wishes to call for update closer to the 4 hour maria teresa, otherwise staff will call Scarlet when ETA is known. Plan: Refer to prior documentation. -JUAN LUIS Ríos
[2023-10-11 01:40] VITALS: BP 130/90; PULSE 77; RESP 20; O2SAT 93
--- NOTE | 2023-10-11 01:50 | ED.RN ---
Patient awake and walking around in his room, talking with security and multiple nurses that walk by his room. He is fidgety and unable to lie back down. Pt requesting ativan pill. Patient medicated per Dr Harry order.
[2023-10-11] MEDS: LORazepam 1 MG Tablet PO (01:57)
--- NOTE | 2023-10-11 03:40 | NURSING ---
Pt standing in doorway talking. Pt requesting to have something to help him rest. Pt is cooperative but restless.
[2023-10-11] MEDS: Ketamine HCl 500 MG/5 ML Vial 170 MG IM ×2 (03:43→04:59)
--- NOTE | 2023-10-11 05:03 | NURSING ---
Pt still restless making frequent trips to bathroom and standing in door talking with staff. Pt c/o of not being able to sleep. Pt requesting more meds to help him relax.
[2023-10-11 05:36] VITALS: BP 130/90; PULSE 75; RESP 16; TEMP 36.2; O2SAT 95
--- NOTE | 2023-10-11 06:30 | NURSING ---
Backpack and snacks given, along with a clean gown.
== END 2023-10-11 07:19 ==
PROVIDERS: Emergency Medicine; Emergency Provider Emergency Medicine; PCP Family Medicine; Visit Provider Emergency Medicine
DX: F23 Brief psychotic disorder (principal); F12.980 Cannabis use, unspecified with anxiety disorder; F31.9 Bipolar disorder, unspecified; F41.9 Anxiety disorder, unspecified; E87.6 Hypokalemia; F17.210 Nicotine dependence, cigarettes, uncomplicated; K21.9 Gastro-esophageal reflux disease without esophagitis; Z79.899 Other long term (current) drug therapy; R45.1 Restlessness and agitation
CPT/HCPCS: 80048; 80307; 80320; 85025; 96372; 99285; G0480; J3486

== ENCOUNTER 2023-10-23 21:28 | Emergency (ER) | payer MEDICARE, MEDICAID, SELFPAY ==
[2023-10-23 21:28] VITALS: BP 125/100; PULSE 109; RESP 16; TEMP 36.4; O2SAT 97
--- NOTE | 2023-10-23 21:43 | EDS_ITS ---
HPI History of Present Illness Chief Complaint: Confusion Narrative Narrative: 38-year-old male past medical history of previous psychosis and psychiatric problems presents via EMS with reported confusion. Was reported by EMS that he was wandering around the gas station and appeared confused. He told the hard tile setter that he smoked a concoction of unknown substances yesterday. He states that he has not slept in 6 days and is starting to have a panic attack again. He feels dehydrated as well. No suicidal ideation or homicidal ideation currently. [facility] Medical History Sleep apnea Severe dextromethorphan use disorder Panic attack Anxiety Depression GERD (gastroesophageal reflux disease) Bipolar disorder Home Medications ?Medication ?Instructions ?Recorded ?Last Taken ?Type clonazepam 0.5 mg tablet 0.5 mg PO Q12H PRN anxiety 12/07/22 Unknown History polyethylene glycol 3350 17 17 g PO DAILY #119 grams 10/08/23 Unknown Rx gram/dose oral powder (Miralax) divalproex 500 mg tablet,extended 500 mg PO DAILY #30 tabs 10/09/23 Unknown Rx release 24 hr gabapentin 600 mg tablet 600 mg PO TID 30 days #90 tabs 10/09/23 Unknown Rx mirtazapine 45 mg tablet 45 mg PO QHS 30 days #30 tabs 10/09/23 Unknown Rx prazosin 2 mg capsule 2 mg PO QHS 30 days #30 caps 10/09/23 Unknown Rx Allergy/AdvReac Type Severity Reaction Status Date / Time No Known Allergies Allergy Verified 10/09/23 10:06 Social History household members: none and other details: Patient reports he has children and recently went degeneration so he could Smoking Status: Current every day smoker tobacco type: cigarettes ROS ROS ED ROS Narrative Constitutional: No fever, no chills. Feels dehydrated. HEENT: No sore throat. No neck pain. No loss of vision. No rhinorrhea. Cardiovascular: No chest pain. No palpitations. No pedal edema. Respiratory: No cough, no shortness of breath. Abdominal: No abdominal pain. No nausea. No vomiting. Genitourinary: No dysuria. No hematuria. Musculoskeletal: No myalgias. No arthralgias. Neurologic: No headaches. No dizziness. No lightheadedness. Skin: No rash. No change in color. Psychiatric: No depression. Positive anxiety. Endorses insomnia. Also endorses drug abuse. Denies suicidal ideation or homicidal ideation. EXAM Physical Exam Narrative Exam Narrative: Afebrile. Vital signs noted. Positive tachycardia. Lungs clear to auscultation bilaterally. Abdomen soft nontender with normal active bowel sounds. Neurological examination nonfocal, nonlateralizing. Psychiatric examination reveals him to be easily distracted. No suicidal ideation or homicidal ideation. Mildly confused. Redirectable currently. Able to ambulate to bathroom without difficulty. Const Vital Signs: 10/23/23 21:28 Temperature 97.6 F L Temperature Source Tympanic Pulse Rate 109 H Respiratory Rate 16 Blood Pressure 125/100 H Blood Pressure Mean 108 Pulse Ox 97 Oxygen Delivery Method Room Air MDM MDM MDM Narrative Medical decision making narrative: I reviewed the patient's prior records. He was last seen here approximately 2 weeks ago. He became increasingly agitated. He was reportedly transferred to a psychiatric facility. While he is redirectable currently and denies suicidal ideation or homicidal ideation, he will be given Ativan 2 mg orally. I will obtain medical screening labs to look for dehydration, and in the event that he will require reevaluation by crisis. In review of his prior ED visit, it was thought that he might be psychotic from illicit drug use, and he admits to smoking unknown substances yesterday. However, the last time his toxicology screen was negative for amphetamines. However, was positive for cannabinoids and benzodiazepines. I reviewed his laboratory work and he has normal white count of 5.7, hemoglobin normal at 14.1, hematocrit 41.7, platelet count normal at 184. Electrolyte panel shows acute kidney injury with a creatinine slightly elevated at 1.4 with a BUN of 28 consistent with mild dehydration. Glucose elevated at 109 with anion gap of 7. LFTs shows AST slightly elevated at 39 which I think is nonspecific, normal ALT and normal alkaline phosphatase. Alcohol level is negative at less than 3. Usually not elevated in him. His urine for drugs of abuse is still pending. Repeat examination at approximately 2300 after Ativan 2 mg orally shows him sleeping. He had been given this because he states that he felt like he had a panic attack. Given if his tox screen is positive for polysubstances again, I do not feel that he necessarily needs acute evaluation by crisis. He is not suicidal or homicidal currently, and is resting comfortably. In review of his toxicology screen, today he is positive for amphetamines and cannabinoids, but negative for benzodiazepines. At this point in time, in review of his prior ED records, he usually does get discharged, but then he has repeated visits over the next few days. He will be allowed to rest, but I feel he can be discharged as he is not currently meeting any criteria for 72-hour psychiatric hold. Disposition is discharged in stable condition. History & Record Review Discussion w/independent historian: Patient Additional record(s) reviewed:: Prior ED visit and Prior labs Lab Data Attestation: I reviewed the patient's lab results. Labs: Laboratory Results - last 24 hr 10/23/23 21:47 WBC 5.7 RBC 4.83 Hgb 14.1 Hct 41.7 MCV 86.3 MCH 29.2 MCHC 33.8 RDW Std Deviation 42.1 RDW Coeff of Gabriel 13.4 Plt Count 184 MPV 8.5 Immature Gran % (Auto) 0.400 Neut % (Auto) 53.4 Lymph % (Auto) 29.4 [place] % (Auto) 14.8 H Eos % (Auto) 1.6 Baso % (Auto) 0.4 Absolute Neuts (auto) 3.0 Absolute Lymphs (auto) 1.67 Nucleated RBC % 0 Sodium 138 Potassium 4.0 Chloride 104 Carbon Dioxide 27.0 Anion Gap 7 BUN 28 H Creatinine 1.41 H Est GFR (MDRD) Af Amer 72 Est GFR (MDRD) Non-Af 60 BUN/Creatinine Ratio 19.9 Glucose 109 H Calcium 8.7 Total Bilirubin 0.50 AST 39 H ALT 30 Alkaline Phosphatase 63 Total Protein 6.9 Albumin 3.6 Globulin 3.3 Albumin/Globulin Ratio 1.1 Urine Opiates Screen NEGATIVE Urine Methadone Screen NEGATIVE Ur Barbiturates Screen NEGATIVE Ur Phencyclidine Scrn NEGATIVE Ur Amphetamines Screen POSITIVE H MDMA (Ecstasy) Screen NEGATIVE U Benzodiazepines Scrn NEGATIVE Urine Cocaine Screen NEGATIVE U Cannabinoids Screen POSITIVE H Ur Drug Screen Comment Ethyl Alcohol < 3.0 Discharge Plan Triage Chief Complaint: Confusion ED Provider: Nader Arceo Dx/Rx/DC Orders Clinical Impression: Acute kidney injury, Mild dehydration, Insomnia Instructions: ED Dehydration (Adult), ED Insomnia Prescriptions: No Action clonazepam 0.5 mg tablet 0.5 mg PO Q12H PRN (Reason: anxiety) polyethylene glycol 3350 [Miralax] 17 gram/dose powder 17 g PO DAILY Qty: 119 0RF gabapentin 600 mg tablet 600 mg PO TID 30 Days Qty: 90 0RF divalproex 500 mg tablet extended release 24 hr 500 mg PO DAILY Qty: 30 0RF mirtazapine 45 mg tablet 45 mg PO QHS 30 Days Qty: 30 0RF prazosin 2 mg capsule 2 mg PO QHS 30 Days Qty: 30 0RF Primary Care Provider: William Castillo Referrals: William Castillo MD [Primary Care Provider] - Print Language: Turkmen
[2023-10-23] MEDS: LORazepam 1 MG Tablet PO (21:55)
[2023-10-23 21:56] LABS: Absolute Lymphocyte Count 1.67 X10^3/uL (0.83-4.51); Basophil# 0.02 X10^3/uL; Basophil% 0.4 % (0-1); Eosinophil# 0.09 X10^3/uL; Eosinophils% 1.6 % (0-5); Hematocrit 41.7 % (40-54); Hemoglobin 14.1 g/dL (13.0-16.5); Lymphocyte # 1.67 X10^3/ul (0.83-4.51); Lymphocyte % 29.4 % (19-41); Mean Corp Hgb Conc 33.8 g/dL (32-36); Mean Corpuscular Hgb 29.2 pg (27.0-32.0); Mean Corpuscular Volume 86.3 fL (80-94); Mean Platelet Vol. 8.5 fl (6.2-12.0); Monocyte# 0.84 X10^3/uL; Monocyte% 14.8 % (0-10); NRBC Flagged by Analyzer 0 % (0-5); Neutrophil # 3.04 X10^3/uL (2.7-7.7); Neutrophil % 53.4 % (47-70); Platelet Count 184 K/mm3 (150-450); RBC Distribution Width CV 13.4 % (11.6-14.6); RBC Distribution Width SD 42.1 fl (35.1-43.9); Red Blood Count 4.83 M/mm3 (4.6-6.2); White Blood Count 5.7 K/mm3 (4.4-11.0)
[2023-10-23 22:21] LABS: ALB/GLOB Ratio 1.1 RATIO (0.9-2.4); AST(SGOT) 39 U/L (15-37); Alanine Aminotransfer ALT/SGPT 30 U/L (16-61); Albumin, Serum 3.6 g/dL (3.2-5.0); Alcohol, Blood (Medical)-Serum < 3.0 mg/dL; Alkaline Phosphatase 63 U/L (45-117); Anion Gap 7 (5-15); BUN 28 mg/dL (7-18); BUN/Creat Ratio 19.9 RATIO (10-20); Calcium,Total 8.7 mg/dL (8.5-10.1); Chloride 104 mmol/L (98-107); Creatinine, Serum 1.41 mg/dL (0.70-1.30); EST Glomerular Filtration Rate 60 mL/min (>60); Est Glom Filt Rate - Afr Amer 72 mL/min (>60); Globulin 3.3 g/dL (2.2-4.2); Glucose 109 mg/dL (74-106); Protein, Total 6.9 g/dL (6.4-8.2); Sodium Level 138 mmol/L (136-145)
[2023-10-23 23:10] LABS: Amphetamine Urine VISTA POSITIVE (<1000 ng/mL); Barbiturate Urine VISTA NEGATIVE (< 200 ng/mL); Benzodiazepine Urine VISTA NEGATIVE (< 200 ng/mL); Cocaine Urine VISTA NEGATIVE (< 300 ng/mL); Ecstacy Urine VISTA NEGATIVE (< 500 ng/mL); Methadone Urine VISTA NEGATIVE (< 300 ng/mL); PCP Urine VISTA NEGATIVE (< 25 ng/mL); THC Urine VISTA POSITIVE (< 50 ng/mL); Vista UDS pH Range 6
[2023-10-24 01:00] VITALS: BP 108/84; PULSE 82; RESP 16; TEMP 36.6; O2SAT 99
== END 2023-10-24 01:25 | disposition home or self-care (01) ==
PROVIDERS: Emergency Provider Emergency Medicine; PCP Family Medicine; Visit Provider Emergency Medicine
DX: N17.9 Acute kidney failure, unspecified (principal); F19.10 Other psychoactive substance abuse, uncomplicated; G47.00 Insomnia, unspecified; R41.0 Disorientation, unspecified; F17.210 Nicotine dependence, cigarettes, uncomplicated; K21.9 Gastro-esophageal reflux disease without esophagitis; E86.0 Dehydration; F41.9 Anxiety disorder, unspecified
CPT/HCPCS: 80053; 80307; 82077; 85025; 99282

== ENCOUNTER 2023-10-25 18:09 | Emergency (ER) | payer MEDICARE, MEDICAID, SELFPAY ==
[2023-10-25 18:11] VITALS: BP 128/84; PULSE 91; RESP 17; TEMP 36.4; O2SAT 98
--- NOTE | 2023-10-25 19:54 | EKG12_ITS ---
Test Reason : DYSRHYTHMIA Blood Pressure : / mmHG Vent. Rate : 071 BPM Atrial Rate : 071 BPM P-R Int : 140 ms QRS Dur : 114 ms QT Int : 418 ms P-R-T Axes : 050 071 041 degrees QTc Int : 454 ms Normal sinus rhythm Normal ECG Confirmed by TWILA ALCANTARA, MARY ([id number]), state editor PACO MANZANO ([id number]) on 10/26/2023 8:36:54 AM Referred By: Confirmed By:MARY MATTSON MD
--- NOTE | 2023-10-25 19:55 | EX.ED.SAOD ---
HPI History of Present Illness Chief Complaint: Mental Health Informant: patient Onset/Context/Timing Onset: Today Timing: Continuous Current Severity: Moderate Maximum Severity: Moderate Narrative Narrative: 38-year-old male history of bipolar, anxiety and depression. Reportedly took multiple DXM pills because he abuses them. And was brought in by police. He is a very limited informant. Prior similar symptoms: Yes Recent Illness/Hospitalization: No PFSH PFSH Medical History Sleep apnea Severe dextromethorphan use disorder Panic attack Anxiety Depression GERD (gastroesophageal reflux disease) Bipolar disorder Home Medications ?Medication ?Instructions ?Recorded ?Last Taken ?Type clonazepam 0.5 mg tablet 0.5 mg PO Q12H PRN anxiety 12/07/22 Unknown History polyethylene glycol 3350 17 17 g PO DAILY #119 grams 10/08/23 Unknown Rx gram/dose oral powder (Miralax) divalproex 500 mg tablet,extended 500 mg PO DAILY #30 tabs 10/09/23 Unknown Rx release 24 hr gabapentin 600 mg tablet 600 mg PO TID 30 days #90 tabs 10/09/23 Unknown Rx mirtazapine 45 mg tablet 45 mg PO QHS 30 days #30 tabs 10/09/23 Unknown Rx prazosin 2 mg capsule 2 mg PO QHS 30 days #30 caps 10/09/23 Unknown Rx Allergy/AdvReac Type Severity Reaction Status Date / Time No Known Allergies Allergy Verified 10/25/23 18:11 Social History household members: none and other details: Patient reports he has children and recently went degeneration so he could Smoking Status: Current every day smoker tobacco type: cigarettes ROS ROS ED ROS Narrative Denies recent illness. Review of Systems ROS Unobtainable: due to mental status EXAM Physical Exam Narrative Exam Narrative: 38-year-old male appears intoxicated. Vital signs stable afebrile. Pulse ox 98% on room air. No hypoxia. H EENT pupils are round and dilated bilaterally. They are reactive light. Approximately 5 mm. Moist mucous membranes. Neck nontender. Lungs clear. Heart regular rhythm rate about 90 no murmur. Chest wall and ribs nontender. Abdomen soft nontender. Moving all 4 extremities. He has slurred speech. He is moving all 4 extremities. He is following limited commands. Limited informant. Const Vital Signs: 10/25/23 18:11 10/25/23 20:13 10/25/23 21:58 Temperature 97.6 F L 98.5 F Temperature Source Temporal Pulse Rate 91 81 87 Respiratory Rate 17 18 16 Blood Pressure 128/84 H 133/83 H 139/88 H Blood Pressure Mean 98 99 105 Pulse Ox 98 99 98 Oxygen Delivery Method Room Air Room Air Positive well nourished and well developed; Negative for obese, cachectic, contractures or unkempt General Appearance ED: well developed; Negative for unkempt, cachectic, contractures, NAD or pallor Nutritional Appearance: Negative for cachectic or obese HEENT Reports moist mucous membranes atraumatic; Negative for trauma or tenderness Eyes PERRL and EOMs intact bilaterally General Eye ED: Negative for pale conjunctiva, scleral icterus or other Neck no lymphadenopathy, supple and no JVD Thyroid: Negative for tender or other Lymph Lymphatic: no lymphadenopathy noted Chest Wall inspection of chest normal and palpation of chest normal Resp normal respiratory effort and clear to auscultation bilaterally Effort and Inspection: Negative for retractions Auscultation: Negative for rales, rhonchi, wheezes or diminished lung sounds Cardio regular rate, regular rhythm, S1 normal heart sound, S2 normal heart sound and no murmurs Rate: Negative for bradycardia or tachycardic Rhythm: Negative for abnormal rhythm Bruits: Negative for other GI soft to palpation, non-tender, non-distended and no masses Inspection: Negative for abdominal distention Palpation: Negative for tender, guarding or mass Back/Spine no CVA tenderness General Back: Negative for CVA tenderness Cervical Spine: Negative for cervical spine tenderness Thoracic Spine / Upper Back: Negative for thoracic spinal tenderness Lumbar Spine / Lower Back: Negative for lumbar spinal tenderness Coccyx: Negative for swelling Extremity General Extremety ED: Negative for edema, tenderness or other findings General Extremity: Negative for edema or other findings Neuro oriented x3 Neuro Narrative: Awake. Eyes open. Pupils dilated but responsive. Slurred speech. Moving all 4 extremities. Intoxicated. Sensorium / Orientation: alert, oriented to person, oriented to place, confused and lethargic; Negative for oriented to time Speech: Negative for speech normal Motor Exam: Negative for strength 5/5 throughout Psych Negative for mental status grossly normal Appearance: Negative for unkempt Attitude: No belligerent, No agitated, No aggressive and No hostile Mood & Affect: Negative for depressed, anxious or tearful Skin General Skin Exam: Negative for jaundice or pallor Lesions: no lesions Rashes: no rashes MDM MDM MDM Narrative Medical decision making narrative: 38-year-old male took dextromethorphan pills due to his addiction. He appears intoxicated. Screening labs. IV fluids. Repeat exam patient is doing well at 10:05 PM. He is much more awake alert. He is ambulating about the room. He is well-known to this emergency department. He will be discharged home. History & Record Review Discussion w/independent historian: Patient Additional record(s) reviewed:: Prior inpatient record, Prior outpatient record, Prior ED visit and Prior labs Lab Data Attestation: I reviewed the patient's lab results. Lab results narrative: CBC shows white count 7. H&H 12 and 36. Platelets 159. Electrolytes show gap 6. BUN and creatinine are 19 and 1.1. Glucose 107. Alcohol negative. Urine tox screen positive for phencyclidine and cannabis. Labs: Laboratory Results - last 24 hr 10/25/23 10/25/23 20:26 20:50 WBC 7.1 RBC 4.22 L Hgb 12.4 L Hct 36.7 L MCV 87.0 MCH 29.4 MCHC 33.8 RDW Std Deviation 43.0 RDW Coeff of Gabriel 13.4 Plt Count 159 MPV 8.5 Immature Gran % (Auto) 0.100 Neut % (Auto) 76.0 H Lymph % (Auto) 16.6 L [place] % (Auto) 6.2 Eos % (Auto) 0.7 Baso % (Auto) 0.4 Absolute Neuts (auto) 5.4 Absolute Lymphs (auto) 1.17 Nucleated RBC % 0 Sodium 139 Potassium 3.6 Chloride 106 Carbon Dioxide 27.0 Anion Gap 6 BUN 19 H Creatinine 1.14 Est GFR (MDRD) Af Amer 92 Est GFR (MDRD) Non-Af 76 BUN/Creatinine Ratio 16.7 Glucose 107 H Calcium 8.6 Urine Opiates Screen NEGATIVE Urine Methadone Screen NEGATIVE Ur Barbiturates Screen NEGATIVE Ur Phencyclidine Scrn POSITIVE H Ur Amphetamines Screen NEGATIVE MDMA (Ecstasy) Screen NEGATIVE U Benzodiazepines Scrn NEGATIVE Urine Cocaine Screen NEGATIVE U Cannabinoids Screen POSITIVE H Ur Drug Screen Comment Ethyl Alcohol < 3.0 Rhythm Strip Rhythm Strip: Sinus Rhythm Rate: 71 Ectopy: None EKG Initial EKG: Attestation: I personally reviewed and interpreted this EKG as follows: Interpretation: Sinus Rhythm and No Acute Injury Pattern Comments: Normal sinus rhythm rate 71 no acute signs of GA or ischemia. No dysrhythmia. Discharge Plan Triage Chief Complaint: Mental Health ED Provider: Javi Whitehead Dx/Rx/DC Orders Clinical Impression: Drug abuse, Bipolar 1 disorder Instructions: ED Drug Abuse Prescriptions: No Action clonazepam 0.5 mg tablet 0.5 mg PO Q12H PRN (Reason: anxiety) polyethylene glycol 3350 [Miralax] 17 gram/dose powder 17 g PO DAILY Qty: 119 0RF gabapentin 600 mg tablet 600 mg PO TID 30 Days Qty: 90 0RF divalproex 500 mg tablet extended release 24 hr 500 mg PO DAILY Qty: 30 0RF mirtazapine 45 mg tablet 45 mg PO QHS 30 Days Qty: 30 0RF prazosin 2 mg capsule 2 mg PO QHS 30 Days Qty: 30 0RF Primary Care Provider: William Castillo Referrals: William Castillo MD [Primary Care Provider] - As Needed Activity Restrictions/Additional Instructions: Follow-up with 180 for your drug abuse problem. Print Language: Trinidadian Disposition Disposition: Home, Self Care
[2023-10-25 20:13] VITALS: BP 133/83; PULSE 81; RESP 18; O2SAT 99
[2023-10-25] MEDS: Ondansetron 4 MG/2 ML Vial IV (20:25)
[2023-10-25] MEDS: 0.9% Normal Saline (1000mL) 1,000 ML 999 ML IV (20:25)
[2023-10-25 20:38] LABS: Absolute Lymphocyte Count 1.17 X10^3/uL (0.83-4.51); Absolute Neutrophil Count 5.4 X10^3/uL (2.0-7.7); Basophil# 0.03 X10^3/uL; Basophil% 0.4 % (0-1); Eosinophil# 0.05 X10^3/uL; Eosinophils% 0.7 % (0-5); Hematocrit 36.7 % (40-54); Hemoglobin 12.4 g/dL (13.0-16.5); Lymphocyte # 1.17 X10^3/ul (0.83-4.51); Lymphocyte % 16.6 % (19-41); Mean Corp Hgb Conc 33.8 g/dL (32-36); Mean Corpuscular Hgb 29.4 pg (27.0-32.0); Mean Platelet Vol. 8.5 fl (6.2-12.0); Monocyte# 0.44 X10^3/uL; Monocyte% 6.2 % (0-10); NRBC Flagged by Analyzer 0 % (0-5); Neutrophil # 5.36 X10^3/uL (2.7-7.7); Platelet Count 159 K/mm3 (150-450); RBC Distribution Width CV 13.4 % (11.6-14.6); Red Blood Count 4.22 M/mm3 (4.6-6.2); White Blood Count 7.1 K/mm3 (4.4-11.0)
[2023-10-25 21:06] LABS: Anion Gap 6 (5-15); BUN 19 mg/dL (7-18); BUN/Creat Ratio 16.7 RATIO (10-20); Calcium,Total 8.6 mg/dL (8.5-10.1); Chloride 106 mmol/L (98-107); Creatinine, Serum 1.14 mg/dL (0.70-1.30); EST Glomerular Filtration Rate 76 mL/min (>60); Est Glom Filt Rate - Afr Amer 92 mL/min (>60); Glucose 107 mg/dL (74-106); Potassium 3.6 mmol/L (3.5-5.1); Sodium Level 139 mmol/L (136-145)
[2023-10-25 21:28] LABS: Amphetamine Urine VISTA NEGATIVE (<1000 ng/mL); Barbiturate Urine VISTA NEGATIVE (< 200 ng/mL); Benzodiazepine Urine VISTA NEGATIVE (< 200 ng/mL); Cocaine Urine VISTA NEGATIVE (< 300 ng/mL); Ecstacy Urine VISTA NEGATIVE (< 500 ng/mL); Methadone Urine VISTA NEGATIVE (< 300 ng/mL); PCP Urine VISTA POSITIVE (< 25 ng/mL); THC Urine VISTA POSITIVE (< 50 ng/mL); Vista UDS pH Range 5
[2023-10-25 21:28] LABS: Alcohol, Blood (Medical)-Serum < 3.0 mg/dL
[2023-10-25 21:58] VITALS: BP 139/88; PULSE 87; RESP 16; TEMP 36.9; O2SAT 98
== END 2023-10-25 22:14 | disposition home or self-care (01) ==
PROVIDERS: Emergency Provider Emergency Medicine; PCP Family Medicine; Visit Provider Emergency Medicine
DX: F11.20 Opioid dependence, uncomplicated (principal); F31.9 Bipolar disorder, unspecified; F41.9 Anxiety disorder, unspecified; F17.210 Nicotine dependence, cigarettes, uncomplicated; K21.9 Gastro-esophageal reflux disease without esophagitis
CPT/HCPCS: 80048; 80307; 82077; 85025; 93005; 96361; 96374; 99283; J7030; A4216; J2405

== ENCOUNTER 2023-10-31 16:15 | Emergency (ER) | payer MEDICARE, MEDICAID, SELFPAY ==
[2023-10-31 16:15] VITALS: BP 117/74; PULSE 137; RESP 20; TEMP 37; O2SAT 96; BMI 59.3
--- NOTE | 2023-10-31 16:39 | ED.RN ---
Patient refusing water that Martin KAPOOR took into him. He started yelling about people laughing. Multiple [employer] in the department. Pt had told PD and the nurse that he was just coming here to get food and medication to sleep. While patient was walking out of department, he kept saying Good job, fuck you all Patient had decided to leave the department on his own free will. Patient was also told by [employer] that if they had to deal with him again today, he would be going to care home.
--- NOTE | 2023-10-31 16:54 | EDS_ITS ---
HPI <ROBYN Smith - Last Filed: 10/31/23 16:58> History of Present Illness Chief Complaint: Mental Health Narrative Narrative: Patient is a 38-year-old male with a long history of bipolar, drug use, anxiety, who frequents this emergency department presenting to the emergency department for anxiety. Patient called the police, states he was an anxiety attack that he could not get out of. He states he lives in a facility that someone stole his medications. This is the patient's sixth time to the emergency department this month. Patient is currently not under arrest. He has not having any homicidal or suicidal ideation. He is simply yelling because someone stole his medications, and he is upset. He really asked for food, as well as Ativan or Klonopin to calm him down. PFSH <ROBYN Smith - Last Filed: 10/31/23 16:58> [facility] Medical History Sleep apnea Severe dextromethorphan use disorder Panic attack Anxiety Depression GERD (gastroesophageal reflux disease) Bipolar disorder Home Medications ?Medication ?Instructions ?Recorded ?Last Taken ?Type clonazepam 0.5 mg tablet 0.5 mg PO Q12H PRN anxiety 12/07/22 Unknown History polyethylene glycol 3350 17 17 g PO DAILY #119 grams 10/08/23 Unknown Rx gram/dose oral powder (Miralax) divalproex 500 mg tablet,extended 500 mg PO DAILY #30 tabs 10/09/23 Unknown Rx release 24 hr gabapentin 600 mg tablet 600 mg PO TID 30 days #90 tabs 10/09/23 Unknown Rx mirtazapine 45 mg tablet 45 mg PO QHS 30 days #30 tabs 10/09/23 Unknown Rx prazosin 2 mg capsule 2 mg PO QHS 30 days #30 caps 10/09/23 Unknown Rx Allergy/AdvReac Type Severity Reaction Status Date / Time No Known Allergies Allergy Verified 10/31/23 16:15 Social History household members: none and other details: Patient reports he has children and recently went degeneration so he could Smoking Status: Current every day smoker tobacco type: cigarettes ROS <ROBYN Smith - Last Filed: 10/31/23 16:58> ROS ED ROS Narrative Constitutional: Negative for fever, chills, weight loss, weakness Eyes: Negative for vision loss, vision change, double vision ENT: Negative for any sore throat, ear pain, congestion Cardiovascular: Negative for any chest pain, tightness, palpitations Respiratory: Negative for any cough, sputum production, hemoptysis, dyspnea, dyspnea on exertion, orthopnea Gastrointestinal: Negative for any abdominal pain, nausea, vomiting, diarrhea, constipation, blood in stool, blood in vomit : Negative for any urinary frequency, dysuria, retention, blood in urine Muscle skeletal: Negative for any neck pain, back pain Neurological: Negative for any headache, syncope, dizziness Skin: Negative for any rashes, itching, abrasions, lacerations Psychiatric: Negative for any depression, suicidal ideation, homicidal ideation. Positive for anxiety, stress reaction Hematologic: Negative for any excessive bruising, easy bleeding EXAM <Martin Arevalo, ALEX-C - Last Filed: 10/31/23 16:58> Physical Exam Narrative Exam Narrative: Vital signs reviewed. Patient does appear to be manic, patient is cursing, yelling at everyone around him. Patient is using foul language towards me however is not threatening anybody personally. HEET: Head normocephalic atraumatic, TMs clear bilaterally. Posterior pharynx is clear, dry mucous membranes. Nares clear bilaterally. Pupils dilated, they do react to light. No photophobia. Neck: Supple with no lymphadenopathy or tenderness. No signs of meningismus. Cardiac: tachycardic rate no murmurs gallops or rubs, equal peripheral pulses bilaterally. Respiratory: Lungs clear to auscultation bilaterally. No chest tenderness. Abdomen: Soft, nontender, nondistended. No abdominal bruit or pulsatile masses. No hepatosplenomegaly Extremities: No peripheral edema, no signs of gross trauma or deformity. Active full range of motion of all extremities. Neuro: Cranial nerves II through XII intact, no focal neurological deficits. Skin: Clean dry and intact with no rash, purpura, petechiae, vesicles or pustules. Backs/flank: No CVA tenderness, no midline spinal tenderness, no deformity. Psych: Normal mood and affect. No SI, HI or acute psychosis. Const Vital Signs: 10/31/23 16:15 Temperature 98.6 F Temperature Source Temporal Pulse Rate 137 H Respiratory Rate 20 H Blood Pressure 117/74 Blood Pressure Mean 88 Pulse Ox 96 Oxygen Delivery Method Room Air <Dr. Fito Nunn MD - Last Filed: 10/31/23 17:11> Physical Exam Const Vital Signs: 10/31/23 16:15 Temperature 98.6 F Temperature Source Temporal Pulse Rate 137 H Respiratory Rate 20 H Blood Pressure 117/74 Blood Pressure Mean 88 Pulse Ox 96 Oxygen Delivery Method Room Air MDM <ROBYN Smith - Last Filed: 10/31/23 16:58> [facility] Treatment and Re-Evaluation :: Differential diagnosis includes however is not limited to: Suicidal, homicidal, bipolar, drug reaction, anxiety, depression Patient arrives yelling, constantly cursing to everybody in the emergency department. Patient's vital signs are stable, patient is tachycardic however patient is visibly upset. I offered the patient ice cold water, he refused. I offered the patient some hydroxyzine to calm him down, he told me that I can show that my ass. Patient states that he wants Klonopin, Ativan, and food. I told him that that would not be happening at this time. Patient then got upset states he wanted to leave. He is not under arrest, he is not homicidal or suicidal, he may leave. He did not stay as I instructed him to to talk to the ER physician. <Dr. Fito Nunn MD - Last Filed: 10/31/23 17:11> [facility] Narrative Medical decision making narrative: I have personally performed a face to face assessment of the patient and have reviewed the ROBIN Note. History is: I was not able to take a personal history since the patient eloped after seen the ROBIN. Exam is I saw the patient walking from the bathroom to the room after he arrived but before ROBIN event and the patient. Had sunglasses on, ambulatory and in no acute distress, respiratory or otherwise. Medical Decison Making patient eloped. Was here asking for food and snacks according to ROBIN and not complaining of acute medical issue or suicidality. Other additions or changes: [None] Discharge Plan Triage Chief Complaint: Mental Health ED Midlevel Provider: Martin Arevalo ED Provider: Fito Nunn Dx/Rx/DC Orders Clinical Impression: Anxiety Prescriptions: No Action clonazepam 0.5 mg tablet 0.5 mg PO Q12H PRN (Reason: anxiety) polyethylene glycol 3350 [Miralax] 17 gram/dose powder 17 g PO DAILY Qty: 119 0RF gabapentin 600 mg tablet 600 mg PO TID 30 Days Qty: 90 0RF divalproex 500 mg tablet extended release 24 hr 500 mg PO DAILY Qty: 30 0RF mirtazapine 45 mg tablet 45 mg PO QHS 30 Days Qty: 30 0RF prazosin 2 mg capsule 2 mg PO QHS 30 Days Qty: 30 0RF Primary Care Provider: William Castillo Referrals: William Castillo MD [Primary Care Provider] - Print Language: Emirati Disposition Disposition: Elopement Discharge Date/Time: 10/31/23 16:52
== END 2023-10-31 16:52 | disposition left against medical advice (07) ==
PROVIDERS: Emergency Provider Emergency Medicine; PCP Family Medicine; Visit Provider Emergency Medicine
DX: F41.9 Anxiety disorder, unspecified (principal); F17.210 Nicotine dependence, cigarettes, uncomplicated; K21.9 Gastro-esophageal reflux disease without esophagitis; Z53.29 Procedure and treatment not carried out because of patient's decision for other reasons
CPT/HCPCS: 99282

== ENCOUNTER 2023-11-02 06:07 | Emergency (ER) | payer MEDICARE, MEDICAID, SELFPAY ==
[2023-11-02 06:09] VITALS: BP 126/77; PULSE 83; RESP 16; TEMP 35.6; O2SAT 99; BMI 35.9
--- NOTE | 2023-11-02 06:11 | ED.RN ---
Pt in room less than 5 minutes, pt arguing with nursing staff, Liss MAY and Dr. Nunn. Pt refuses to answer questions for staff, he continues to yell at staff and unable to redirect. Pt leaves out of department without difficulty.
--- NOTE | 2023-11-02 06:19 | EDS_ITS ---
HPI History of Present Illness Chief Complaint: Med Refill Informant: patient Narrative Narrative: Frequent visitor to this emergency department escorted by police, he was being a bother to a business and they escorted him out and he demanded to come to the hospital, initially telling me that he needs something for sleep. However, he is very angry at the police for not leaving the room to talk to the doctor, although he tells me that he is just here for sleep and medications and food. [facility] Medical History Sleep apnea Severe dextromethorphan use disorder Panic attack Anxiety Depression GERD (gastroesophageal reflux disease) Bipolar disorder Home Medications ?Medication ?Instructions ?Recorded ?Last Taken ?Type clonazepam 0.5 mg tablet 0.5 mg PO Q12H PRN anxiety 12/07/22 Unknown History polyethylene glycol 3350 17 17 g PO DAILY #119 grams 10/08/23 Unknown Rx gram/dose oral powder (Miralax) divalproex 500 mg tablet,extended 500 mg PO DAILY #30 tabs 10/09/23 Unknown Rx release 24 hr gabapentin 600 mg tablet 600 mg PO TID 30 days #90 tabs 10/09/23 Unknown Rx mirtazapine 45 mg tablet 45 mg PO QHS 30 days #30 tabs 10/09/23 Unknown Rx prazosin 2 mg capsule 2 mg PO QHS 30 days #30 caps 10/09/23 Unknown Rx Allergy/AdvReac Type Severity Reaction Status Date / Time No Known Allergies Allergy Verified 11/02/23 06:08 Social History household members: none and other details: Patient reports he has children and recently went degeneration so he could Smoking Status: Current every day smoker tobacco type: cigarettes ROS ROS ED Review of Systems ROS Unobtainable: due to mental status EXAM Physical Exam Const Vital Signs: 11/02/23 06:09 Temperature 96.1 F L Temperature Source Temporal Pulse Rate 83 Respiratory Rate 16 Blood Pressure 126/77 H Blood Pressure Mean 93 Pulse Ox 99 Positive well nourished and well developed General Appearance ED: well developed and NAD Resp normal respiratory effort GI non-distended Extremity normal to inspection Extremity Narrative: Full range of motion throughout all 4 extremities Neuro CN's II-XII intact bilaterally, no sensory deficits noted and gait normal Neuro Narrative: Normal speech. No aphasia. No dysarthria. Does not appear to be intoxicated. Motor Exam: strength 5/5 throughout Psych Psych Narrative: Angry. Using expletives. Some pressured speech, limiting history and exam. MDM MDM MDM Narrative Medical decision making narrative: And trying to question the patient, I have to interrupt him because he will not stop talking. In approaching him to examine him, he asked me to get out of his face. I was about 3 or 4 feet away from the patient while he was sitting on the gurney. I advised him that I was not getting in his face and that I was simply going to examine him, however he continued the comments, so at that point I felt there is no reason to continue the encounter and he was discharged, police escorted him out any left without discharge papers. Discharge Plan Triage Chief Complaint: Med Refill ED Provider: Fito Nunn Dx/Rx/DC Orders Clinical Impression: Encounter for medical screening examination Prescriptions: No Action clonazepam 0.5 mg tablet 0.5 mg PO Q12H PRN (Reason: anxiety) polyethylene glycol 3350 [Miralax] 17 gram/dose powder 17 g PO DAILY Qty: 119 0RF gabapentin 600 mg tablet 600 mg PO TID 30 Days Qty: 90 0RF divalproex 500 mg tablet extended release 24 hr 500 mg PO DAILY Qty: 30 0RF mirtazapine 45 mg tablet 45 mg PO QHS 30 Days Qty: 30 0RF prazosin 2 mg capsule 2 mg PO QHS 30 Days Qty: 30 0RF Primary Care Provider: William Castillo Referrals: William Castillo MD [Primary Care Provider] - Print Language: Colombian Disposition Disposition: Home, Self Care
== END 2023-11-02 06:30 | disposition home or self-care (01) ==
PROVIDERS: Emergency Provider Emergency Medicine; PCP Family Medicine; Visit Provider Emergency Medicine
DX: Z00.00 Encounter for general adult medical examination without abnormal findings (principal); F17.210 Nicotine dependence, cigarettes, uncomplicated; Z76.0 Encounter for issue of repeat prescription; K21.9 Gastro-esophageal reflux disease without esophagitis
CPT/HCPCS: 99282

== ENCOUNTER → 2023-11-04 | Outpatient (CLI) | payer MEDICARE, MEDICAID, SELFPAY ==
[2023-11-04 12:17] LABS: Hemoglobin 14.8 g/dL (13.0-16.5); Mean Corp Hgb Conc 32.9 g/dL (32-36); Mean Corpuscular Hgb 28.9 pg (27.0-32.0); Mean Corpuscular Volume 87.9 fL (80-94); Mean Platelet Vol. 8.6 fl (6.2-12.0); Platelet Count 325 K/mm3 (150-450); RBC Distribution Width CV 13.6 % (11.6-14.6); RBC Distribution Width SD 44.5 fl (35.1-43.9); Red Blood Count 5.12 M/mm3 (4.6-6.2); White Blood Count 8.6 K/mm3 (4.4-11.0)
[2023-11-04 13:09] LABS: HIV - WCH Non-Reactive (Nonreactive); Hepatitis B Surface Antibody Reactive; Hepatitis B Surface Antigen Non-Reactive (Nonreactive); Hepatitis C Antibody Non-Reactive (Nonreactive); Syphilis Antibodies Non-reactive
[2023-11-04 17:56] LABS: ALB/GLOB Ratio 1.2 RATIO (0.9-2.4); AST(SGOT) 28 U/L (15-37); Alanine Aminotransfer ALT/SGPT 26 U/L (16-61); Albumin, Serum 4.1 g/dL (3.2-5.0); Alkaline Phosphatase 56 U/L (45-117); Anion Gap 12 (5-15); BUN 20 mg/dL (7-18); BUN/Creat Ratio 14.2 RATIO (10-20); Calcium,Total 9.3 mg/dL (8.5-10.1); Chloride 109 mmol/L (98-107); Cholesterol 174 mg/dL (200); Creatinine, Serum 1.41 mg/dL (0.70-1.30); EST Glomerular Filtration Rate 60 mL/min (>60); Est Glom Filt Rate - Afr Amer 72 mL/min (>60); Globulin 3.4 g/dL (2.2-4.2); Glucose 76 mg/dL (74-106); High Density Lipoprotein 73 mg/dL; Potassium 3.7 mmol/L (3.5-5.1); Protein, Total 7.5 g/dL (6.4-8.2); Sodium Level 140 mmol/L (136-145); Thyroid Stim Hormone (TSH) 1.27 uIU/mL (0.358-3.74); Triglycerides 55 mg/dL; Very Low Density Lipoprotein 11 mg/dL (5-40)
[2023-11-04 22:02] LABS: Hemoglobin A1c 5.2 % (3.8-5.6)
[2023-11-05 07:09] LABS: Hepatitis B Core Ab Total Negative (Negative)
== END | disposition home or self-care (01) ==
LOC: VSLAB 10:30
PROVIDERS: Visit Provider Family Medicine
DX: Z13.21 Encounter for screening for nutritional disorder (principal); Z72.51 High risk heterosexual behavior; Z11.4 Encounter for screening for human immunodeficiency virus [HIV]; F39 Unspecified mood [affective] disorder; R73.09 Other abnormal glucose; Z20.6 Contact with and (suspected) exposure to human immunodeficiency virus [HIV]
CPT/HCPCS: 36415; 80053; 80061; 83036; 84443; 85027; 86703; 86704; 86706; 86780; 86803; 87340

== ENCOUNTER 2023-11-24 09:58 | Emergency (ER) | payer MEDICARE, MEDICAID, SELFPAY ==
[2023-11-24] VITALS (9 sets, daily range): BP systolic 103–134; BP diastolic 59–99; PULSE 65–93; RESP 15–18; TEMP 36.3; O2SAT 92–100; BMI 24.2
--- NOTE | 2023-11-24 10:16 | EKG12_ITS ---
Test Reason : PLACEMENT Blood Pressure : / mmHG Vent. Rate : 068 BPM Atrial Rate : 068 BPM P-R Int : 138 ms QRS Dur : 100 ms QT Int : 422 ms P-R-T Axes : 048 068 044 degrees QTc Int : 448 ms Normal sinus rhythm with sinus arrhythmia Normal ECG Confirmed by BHANU ALCANTARA, LENI ([id number]), photographic editor PACO MANZANO ([id number]) on 11/26/2023 6:43:56 AM Referred By: Confirmed By:LEANDRO DRUMMOND MD
[2023-11-24] MEDS: Ziprasidone IM 20 MG/ML VIAL IM (10:19)
--- NOTE | 2023-11-24 10:26 | ED.RN ---
per dr. calvo, pt does not need a sitter at this time.
--- NOTE | 2023-11-24 10:29 | EDS_ITS ---
HPI HPI - Psych History of Present Illness Chief Complaint: Mental Health Informant: patient, police/electrical engineering draftsperson and mental health staff Narrative Narrative: 38-year-old male presenting to the emergency room with aggression. Patient is well-known to the emergency department staff through his frequent ED visits. The patient was reportedly brought to the emergency department via police. The patient reportedly was at a court ordered psychiatrist appointment would became upset and threw his glasses at the psychiatrist. The appointment was ended. He reportedly was being transported back to his residence when he was jumping out of the vehicle. Police were called and was transported here. Patient is slightly redirectable. He is up walking around the room. He is speaking loudly and seems manic in his behaviors. He is difficult to get history from he does have a history of amphetamine/dextromethorphan abuse and is reportedly diagnosed with borderline personality disorder. Mental health staff report that the patient is to be pink slipped and will be court ordered to psychiatric facility The patient tells me that what is going on as I revealed a fraught store and . He tells me that his case work aide provided him with food and clothing and [facility] but that he turned on him and once he exposed him to be a fraud the police realized that he could not be arrested so they brought him here. Patient states that I can resend the pink slip and let him go to his appointments after he eats food. He states that he deserves to have food immediately and that it is unacceptable that the cafeteria is preparing the food and he has to wait. (This is a frequent source of contention with the patient post (. [facility] Medical History Sleep apnea Severe dextromethorphan use disorder Panic attack Anxiety Depression GERD (gastroesophageal reflux disease) Bipolar disorder Home Medications ?Medication ?Instructions ?Recorded ?Last Taken ?Type clonazepam 0.5 mg tablet 0.5 mg PO Q12H PRN anxiety 12/07/22 Unknown History polyethylene glycol 3350 17 17 g PO DAILY #119 grams 10/08/23 Unknown Rx gram/dose oral powder (Miralax) divalproex 500 mg tablet,extended 500 mg PO DAILY #30 tabs 10/09/23 Unknown Rx release 24 hr gabapentin 600 mg tablet 600 mg PO TID 30 days #90 tabs 10/09/23 Unknown Rx mirtazapine 45 mg tablet 45 mg PO QHS 30 days #30 tabs 10/09/23 Unknown Rx prazosin 2 mg capsule 2 mg PO QHS 30 days #30 caps 10/09/23 Unknown Rx quetiapine 300 mg tablet 300 mg PO QHS 11/24/23 Unknown History Allergy/AdvReac Type Severity Reaction Status Date / Time No Known Allergies Allergy Verified 11/02/23 06:08 Social History household members: none and other details: Patient reports he has children and recently went degeneration so he could Smoking Status: Current every day smoker tobacco type: cigarettes ROS ROS ED Constitutional Constitutional ED: Denies chills or weight loss Eyes Eyes: Denies change in vision or diplopia ENT ENT ED: Denies ear pain, rhinorrhea or sore throat Cardiovascular Cardiovascular: Denies chest pain, orthopnea, palpitations or racing heartbeat Respiratory/Chest Respiratory/Chest: Denies cough, dyspnea or orthopnea Gastrointestinal Gastrointestinal: Denies abdominal pain, diarrhea, nausea or vomiting Genitourinary Genitourinary ED: Denies dysuria, hematuria or urinary frequency Musculoskeletal Musculoskeletal: Denies arthralgias or myalgias Integumentary Denies abscess or rash Neurologic Neurologic: Denies headache(s) or weakness Psychiatric Psychiatric: Reports other Details: Aggressive/manic behaviors ; Denies anxiety, depression, suicidal ideation or suicidal thoughts Endocrine Endocrinology: Denies polydipsia, polyphagia or polyuria Allergic/Immunologic Allergic/Immunologic ED: Denies mouth swelling, tongue swelling or urticaria EXAM Physical Exam Const Vital Signs: 11/24/23 10:00 11/24/23 11:00 Temperature 97.4 F L Temperature Source Temporal Pulse Rate 93 65 Respiratory Rate 16 18 Blood Pressure 134/99 H 106/65 Blood Pressure Mean 110 78 Pulse Ox 97 98 Oxygen Delivery Method Room Air Positive well nourished and well developed General Appearance ED: well developed HEENT Reports normocephalic, head/scalp atraumatic and moist mucous membranes Eyes PERRL and EOMs intact bilaterally Neck no lymphadenopathy, supple and no JVD Resp normal respiratory effort and clear to auscultation bilaterally Cardio regular rate, regular rhythm and no murmurs GI normal to inspection, nondistended, normoactive bowel sounds and non-tender Palpation: soft Back/Spine no CVA tenderness and normal ROM Extremity normal to inspection General Extremety ED: Negative for edema General Extremity: Negative for edema Neuro oriented x3 and CN's II-XII intact bilaterally Sensorium / Orientation: alert Motor Exam: strength 5/5 throughout Psych Appearance: grossly normal Attitude: bizarre, agitated and aggressive Activity / Motor Behavior: psychomotor agitation and restless Speech: pressured Mood & Affect: labile affect and hostile affect; Negative for depressed or tearful Thought Process: disorganized and racing thoughts Thought Content: No suicidality, No homicidality and depersonalization Attention / Concentration: attention grossly impaired Skin no rashes or lesions noted and no wounds MDM MDM MDM Narrative Medical decision making narrative: Patient was initially given Geodon. He became significantly more agitated as I listen to him and eventually he began yelling and cursing at me. I asked for police crime scene technician and security to assist nursing and he was given Ativan and Benadryl IM. Basic blood work was rather unremarkable CO2 26 creatinine 1.09 normal LFTs valproic acid negative alcohol negative he is amphetamine and cannabinoids positive. Patient is pink slipped at this facility. We are awaiting instruction from the judicial system as to a formal commitment order. Patient has been reassessed several times and at the current time he is sedated and resting without any evidence of distress. History & Record Review Discussion w/independent historian: EMS personnel, Patient and Other ( Police) Additional record(s) reviewed:: Prior ED visit and Prior labs Lab Data Attestation: I reviewed the patient's lab results. Labs: Laboratory Results - last 24 hr 11/24/23 11/24/23 10:21 10:25 WBC 6.0 RBC 4.97 Hgb 14.4 Hct 42.6 MCV 85.7 MCH 29.0 MCHC 33.8 RDW Std Deviation 43.6 RDW Coeff of Gabriel 14.0 Plt Count 213 MPV 8.7 Immature Gran % (Auto) 0.300 Neut % (Auto) 49.9 Lymph % (Auto) 40.0 [place] % (Auto) 7.1 Eos % (Auto) 2.5 Baso % (Auto) 0.2 Absolute Neuts (auto) 3.0 Absolute Lymphs (auto) 2.38 Nucleated RBC % 0 Sodium 140 Potassium 3.6 Chloride 109 H Carbon Dioxide 26.0 Anion Gap 5 BUN 15 Creatinine 1.09 Estim Creat Clear Calc 94.88 Est GFR (MDRD) Af Amer 97 Est GFR (MDRD) Non-Af 80 BUN/Creatinine Ratio 13.8 Glucose 89 Calcium 9.0 Total Bilirubin 0.80 AST 32 ALT 30 Alkaline Phosphatase 56 Total Protein 7.1 Albumin 3.8 Globulin 3.3 Albumin/Globulin Ratio 1.2 Urine Opiates Screen NEGATIVE Urine Methadone Screen NEGATIVE Ur Barbiturates Screen NEGATIVE Valproic Acid < 3 L Ur Phencyclidine Scrn NEGATIVE Ur Amphetamines Screen POSITIVE H MDMA (Ecstasy) Screen NEGATIVE U Benzodiazepines Scrn NEGATIVE Urine Cocaine Screen NEGATIVE U Cannabinoids Screen POSITIVE H Ur Drug Screen Comment Ethyl Alcohol < 3.0 EKG Initial EKG: Attestation: I personally reviewed and interpreted this EKG as follows: Comments: Sinus rhythm ventricular rate of 68 bpm Discharge Plan Triage Chief Complaint: Mental Health ED Provider: Marino Stewart Dx/Rx/DC Orders Prescriptions: No Action clonazepam 0.5 mg tablet 0.5 mg PO Q12H PRN (Reason: anxiety) polyethylene glycol 3350 [Miralax] 17 gram/dose powder 17 g PO DAILY Qty: 119 0RF quetiapine 300 mg tablet 300 mg PO QHS gabapentin 600 mg tablet 600 mg PO TID 30 Days Qty: 90 0RF divalproex 500 mg tablet extended release 24 hr 500 mg PO DAILY Qty: 30 0RF mirtazapine 45 mg tablet 45 mg PO QHS 30 Days Qty: 30 0RF prazosin 2 mg capsule 2 mg PO QHS 30 Days Qty: 30 0RF Primary Care Provider: William Castillo Referrals: William Castillo MD [Primary Care Provider] - Print Language: Martiniquais
[2023-11-24 10:39] LABS: Absolute Lymphocyte Count 2.38 X10^3/uL (0.83-4.51); Basophil# 0.01 X10^3/uL; Basophil% 0.2 % (0-1); Eosinophil# 0.15 X10^3/uL; Eosinophils% 2.5 % (0-5); Hematocrit 42.6 % (40-54); Hemoglobin 14.4 g/dL (13.0-16.5); Lymphocyte # 2.38 X10^3/ul (0.83-4.51); Mean Corp Hgb Conc 33.8 g/dL (32-36); Mean Corpuscular Volume 85.7 fL (80-94); Mean Platelet Vol. 8.7 fl (6.2-12.0); Monocyte# 0.42 X10^3/uL; Monocyte% 7.1 % (0-10); NRBC Flagged by Analyzer 0 % (0-5); Neutrophil # 2.97 X10^3/uL (2.7-7.7); Neutrophil % 49.9 % (47-70); Platelet Count 213 K/mm3 (150-450); RBC Distribution Width SD 43.6 fl (35.1-43.9); Red Blood Count 4.97 M/mm3 (4.6-6.2)
[2023-11-24 10:52] LABS: Alcohol, Blood (Medical)-Serum < 3.0 mg/dL
[2023-11-24 10:56] LABS: ALB/GLOB Ratio 1.2 RATIO (0.9-2.4); AST(SGOT) 32 U/L (15-37); Alanine Aminotransfer ALT/SGPT 30 U/L (16-61); Albumin, Serum 3.8 g/dL (3.2-5.0); Alkaline Phosphatase 56 U/L (45-117); Anion Gap 5 (5-15); BUN 15 mg/dL (7-18); BUN/Creat Ratio 13.8 RATIO (10-20); Chloride 109 mmol/L (98-107); Creatinine, Serum 1.09 mg/dL (0.70-1.30); EST Glomerular Filtration Rate 80 mL/min (>60); Est Glom Filt Rate - Afr Amer 97 mL/min (>60); Estimated Creatinine Clearance 94.88 ml/min; Globulin 3.3 g/dL (2.2-4.2); Glucose 89 mg/dL (74-106); Potassium 3.6 mmol/L (3.5-5.1); Protein, Total 7.1 g/dL (6.4-8.2); Sodium Level 140 mmol/L (136-145)
[2023-11-24] MEDS: LORazepam 2 MG/ML Syringe IM (11:03)
[2023-11-24] MEDS: DiphenhydrAMINE 50 MG/ML Syringe IM (11:03)
--- NOTE | 2023-11-24 11:04 | NURSING ---
Dr. Gusman in room assessing pt, pt continues to get more agitated yelling at the doc and yelling profanities at the nurses demanding we feed him immediately. Doc attempts to deescalate pt, unsuccessful. Medication ordered for pt for agitation.
[2023-11-24 11:17] LABS: Valproic Acid (Depakene) Level < 3 ug/mL (50-100)
[2023-11-24 11:20] LABS: Amphetamine Urine VISTA POSITIVE (<1000 ng/mL); Barbiturate Urine VISTA NEGATIVE (< 200 ng/mL); Benzodiazepine Urine VISTA NEGATIVE (< 200 ng/mL); Cocaine Urine VISTA NEGATIVE (< 300 ng/mL); Ecstacy Urine VISTA NEGATIVE (< 500 ng/mL); Methadone Urine VISTA NEGATIVE (< 300 ng/mL); PCP Urine VISTA NEGATIVE (< 25 ng/mL); THC Urine VISTA POSITIVE (< 50 ng/mL); Vista UDS pH Range 6
--- NOTE | 2023-11-24 13:54 | ED.RN ---
Pt. refuses to leave vital sign monitoring on. Pt. up and down in room every few minutes. Ambulates in room. This rn gave him wipes to wash himself up. Crackers and water given to patient for snack.
--- NOTE | 2023-11-24 14:48 | ED.RN ---
Patient called all the nurses assholes because we would not give him peanut butter.
--- NOTE | 2023-11-24 15:11 | ED.RN ---
Pt requested to use phone. Officer gave patient phone and told him he has one phone call in. We went into get phone and pt. requesting another phone call. as patient began to dial phone called this RN mean angry nurse. This RN told pt. he was no longer allowed to use phone due to name calling. Pt. did not like that answer and refused to give up phone until security and police at bedside.
--- NOTE | 2023-11-24 16:49 | NURSING ---
CALLED CRISIS FOR UPDATE
[2023-11-24] MEDS: LORazepam 1 MG Tablet PO (18:29)
[2023-11-24] MEDS: QUEtiapine 100 MG Tablet 300 MG PO (22:08)
[2023-11-24] MEDS: traZODone 50 MG Tablet PO (22:08)
[2023-11-24] MEDS: Gabapentin 300 MG Capsule 600 MG PO (22:11)
--- NOTE | 2023-11-25 01:40 | ED.RN ---
This RN was in the back hallway by room 16 taking a patient up to the floor when Elkin was following behind me. This RN stated Where are you going Elkin? He stated To the bathroom! Why does everyone be so mean to me here? This RN stated The bathroom is behind you chin. and I pointed to the bathroom. I proceeded to walk out of the department and take a left to take my patient to the floor, stopped at the time clock when I heard Elkin yell See ya later!. This RN said elkin stop! and this RN ran to the nurses station and I said Elkin bolted and I ran outside to look for him and did not see where he went.As I was outside I heard him state Fuck this place as he was running away.
--- NOTE | 2023-11-25 02:36 | ED.RN ---
Pt. escorted back to unit by PD. Pt. threatening staff and police. Pt. vulgar and belligerent. Pt. fighting police. notified and 4 point restraints ordered.
[2023-11-25] MEDS: Ziprasidone IM 20 MG/ML VIAL IM ×3 (02:41→17:13)
[2023-11-25] MEDS: LORazepam 2 MG/ML Syringe IM (04:14)
[2023-11-25 07:25] VITALS: BP 127/59; PULSE 72; RESP 15; TEMP 36.4; O2SAT 98
--- NOTE | 2023-11-25 07:56 | ED.RN ---
[facility] called. They have their meeting at 900. They will call after. They are thinking they will have a bed this morning.
[2023-11-25] MEDS: LORazepam 1 MG Tablet PO (08:23)
[2023-11-25] MEDS: Prazosin HCl 1 MG Capsule 2 MG PO (09:26)
--- NOTE | 2023-11-25 09:29 | ED.RN ---
PT WAKES UP AND COMES OUT AND OF ROOM WANTING TO KNOW IF HE HAS RIGHTS AND IF HE CAN MAKE PHONE CALLS. EACH TIME PT IS TOLD HE IS NOT AND HE BECOMES AGITATED. PT ENCOURAGED TO STAY IN HIS ROOM. MULTIPLE TIMES SECURITY HAS HAD TO STAY IN HIS ROOM AND TALK WITH HIM TO KEEP HIM OUT OF THE HALLWAYS.
--- NOTE | 2023-11-25 11:07 | ED.RN ---
PT WOKE UP AND AMBULATED OUT OF , ASKING TO MAKE A PHONE CALL. TOLD HIM THIS NURSE WOULD COMPROMISE AND LET HIM MAKE A PHONE CALL TO NOTIFY SOMEONE OF WHERE AND WHEN HE IS GOING SOON WE HAVE THAT INFORMATION. PT THEN ASKED FOR A SNACK AND REMINDED THIS PT THAT THERE ARE NO SNACKS HE HAS BEEN TOLD MULTIPLE TIMES. PT BECAME INCREASINGLY AGITATED NORMAL FOR HIS BEHAVIOR. PT BECAME AGITATED TOWARDS SECURITY WELL SECURITY WAS ENCOURAGING HIM TO GET BACK INTO HIS ROOM. AFTER MULTIPLE REMINDERS TO DO SO PT FINALLY RETURNED TO HIS ROOM AND CONTINUED TO TALK TO HIMSELF WHILE LAYING ON HIS BED.
--- NOTE | 2023-11-25 11:26 | ED.RN ---
[facility]IS CALLED: HOPING FOR ACCEPTANCE AT [facility] THIS AFTERNOON
--- NOTE | 2023-11-25 11:34 | ED.RN ---
pt is talking to security and they are keeping him in his room. pt continues to be manipulative and try to get phone calls and food which he has been reminded multiple times that he can not have. pt requested to brush his teeth. told him it will be gotten for him shortly. explained this to pt and he again is asking for phone calls and such. security is currently 1 on to keep pt in his room and under control.
[2023-11-25] MEDS: Gabapentin 600 MG Tablet PO (11:43)
[2023-11-25 15:00] VITALS: BP 125/65; PULSE 73; RESP 16; O2SAT 98
--- NOTE | 2023-11-25 17:09 | ED.RN ---
PT HAS HAD MULTIPLE EPISODES OF YELLING AND LOSING HIS TEMPER TO THE POINT SECURITY HAS HAD TO REMAIN BY HIS SIDE THE MAJORITY OF THE TIME. PHYSICIANS ARRIVED TO TRANSPORT PT TO [facility]. PT WAS GIVEN THE PHONE TO MAKE HIS PHONE CALL PROMISED AT WHICH TIME HE CONTINUED TO ARGUE AND STATES THE STAFF TO INCLUDE THIS NURSE WAS LYING AND THAT HIS RIGHTS A PATIENT HAVEN'T BEEN MET. WHILE ON THE PHONE [facility] CALLED AND STATED PT COULD NOT BE TRANSPORTED AT THIS TIME BECAUSE HIS ROOM IS HAVING MAINTENANCE DONE. PT THEN ESCALATED AND HAS CONTINUED TO INTERMITTENTLY YELL AND DEMAND MEDS. SECURITY AND HRO HAVE HAD TO STAY WITH PT. THEY WERE INSTRUCTED TO KEEP PT IN THE ROOM BECAUSE OF SURROUNDING ROOMS AND THEIR FAMILIES BEING EXPOSED TO [employer]HAVI[employer]. PT REPEATEDLY ASKED FOR SPECIFIC MEDS. WAS TOLD MORE THAN ONCE HE IS GIVEN WHAT THE DR ORDERS. PT HAS ALSO ASKED TO MAKE A PHONE CALL TO HIS SON MULTIPLE TIMES. PT REMINDED REPEATEDLY HE ALREADY HAD HIS PHONE CALL AT WHICH TIME HE INCREASES HIS YELLING AND HITS THE ARRIETA IN HIS ROOM. SECURITY AND HRO REMAIN IN THE ROOM WITH THE PT. PT IS MEDICATED WITH [facility] AND PT IS YELLING AND VERBALLY ABUSIVE TO STAFF BECAUSE IT WAS NOT THE MEDICATION HE WANTED. SECURITY AND HRO REMAIN AT PTS BEDSIDE WITH DOOR MOSTLY CLOSED.
[2023-11-25 23:00] VITALS: BP 112/69; PULSE 86; RESP 16; O2SAT 97
[2023-11-25] MEDS: traZODone 50 MG Tablet PO (23:13)
[2023-11-25] MEDS: Mirtazapine 30 MG Tablet PO (23:14)
[2023-11-25] MEDS: QUEtiapine 100 MG Tablet 300 MG PO (23:14)
[2023-11-25] MEDS: OLANZapine 10 MG Tablet PO (23:14)
[2023-11-25] MEDS: Gabapentin 300 MG Capsule 600 MG PO (23:15)
[2023-11-26] MEDS: Prazosin HCl 1 MG Capsule 2 MG PO (00:39)
--- NOTE | 2023-11-26 00:42 | ED.RN ---
Pt ambulatory to bathroom, states he need anxiety meds. RN informed pt he would have to wait for Dr. Stewart to become available. Pt stated, Dr. Stewart is a dumbass RN instructed pt to remain in room and to speak kindly to staff. aware of pt needs.
--- NOTE | 2023-11-26 07:20 | ED.RN ---
Patient is yelling about needing medication to relax. Dr Stewart and Dr Whitehead are aware. Security is in the room with the patient at this time. Patient yelling that if it was his option Kassi RN would . He keeps yelling that its fucking bullshit that he can't have meds. Breakfast has been ordered for the patient.
--- NOTE | 2023-11-26 07:22 | ED.RN ---
PT IS YELLING CUSSING AND TELLING STAFF THEY DON'T DESERVE TO LIVE AND THEY DESERVE TO . HE IS CALLING THIS NURSE A EVIL CUNT AND BITCH SOON I WALKED INTO THE DEPARTMENT. SECURITY IS AT THE BEDSIDE BUT PT CONTINUES TO YELL AND BE DISRUPTIVE. PT REQUESTED A SHOWER OR SOMETHING TO WIPE DOWN WITH. PT WAS PROVIDED WITH BATH WIPES AND CLEAN GOWNS.
--- NOTE | 2023-11-26 07:48 | ED.RN ---
PT CONTINUES TO BE LOUD AND DISRUPTIVE, DR BLACK WENT IN D/T PT YELLING FOR HIM AND TOLD PT IF HE BEHAVED FOR AWHILE HE WOULD CONSIDER GIVING HIM SOME MEDICATION. PT IS NOW SITTING IN HIS BED QUIETLY EATING HIS BREAKFAST. OTHER PTS HAVE VERBALIZED THEIR CONCERN TO THIS NURSE FOR THE STAFF SAFETY D/T THE YELLING AND THINGS THEY COULD HEAR TYSON SAYING.
[2023-11-26 08:25] VITALS: BP 134/69; PULSE 88; RESP 15; TEMP 36.2; O2SAT 97
--- NOTE | 2023-11-26 08:38 | ED.RN ---
PT SLEPT FOR ROUGHLY 30 MINUTES. WOKE UP AND STARTED ASKING FOR THE MEDICATION DR BLACK PROMISED HIM. ATTEMPTED TO TELL PT HE HAS DONE GREAT CONTROLLING HIMSELF AND PT STATES IT WAS JUST BECAUSE THE DR TOLD HIM HE NEEDED TO DO THAT SO HE COULD GET MEDICINE. PT THEN ASKED TO TALK WITH THIS NURSE ND STARTED TO RANT. THIS NURSE TOLD HIM I WOULD NOT LISTEN TO HIM YELL AND WALKED FROM THE ROOM. PT THEN STARTED YELLING AND CUSSING AND VERBALLY THREATENING DR AND STAFF.
--- NOTE | 2023-11-26 08:43 | ED.RN ---
Per Dr Whitehead PD have been called. They will be on the way. Patient is being very verbal yelling at security, calling the nurse a cunt and a bitch. Patient is demanding medication to calm down. Patient was sleeping and snoring for about 30 minutes. Patient told nurse you are a fuck and that is all that you will ever be. You shouldn't be alive.. Patient now asking nurse when she is going to do her job and give him his medication that is prescribed. Patient has been given meds as ordered. Security has asked patient to sit down several times, and patient has refused. Don't fuck with me, your life is in my hands. Door was attempted to be closed and patient flung the door open. Your a piece of shit. If you get near me I will knock you out and punch you 10 times. PD now in the room. PD telling patient to sit down and patient refusing. Dr Whitehead wants the patient to go to assisted for disorderly conduct. This place should be shut down and burned down. 2 PD officers in the room currently. Patient is now yelling at PD. Patient is saying that PD is lying. PD came to desk asking what was gong on with the patient. PD asking if it is his normal stuff. He is now asking for water, when he asks he yells. Kassi is giving patient water. Gabapentin is ordered for 1000am. Patient has stated that he is going to go to [place] and raise hell there. Just spoke with Tameka from the counseling center. She is going to call [facility] right now. Patient will be going to assisted for disorderderly conduct.
--- NOTE | 2023-11-26 09:15 | ED.RN ---
Patient was sent to long term to wait placement at [facility]. Tameka at the counseling center is aware. Packet for [facility] was sent with PD.
--- NOTE | 2023-11-27 09:45 | ED.RN ---
[facility] called to get a nurse to nurse report on the patient. They were given report on what happened until he was taken to [facility]. This nurse reports that I have no idea what has happened with the patient since he has been at the [facility]. They stated that they have not ever had him before so they are not aware of his behaviors or manipulation. I advised them to get a report from the [facility] nurse about what has happened since he has been in custody.
== END 2023-11-26 09:15 ==
PROVIDERS: Emergency Provider Emergency Medicine; PCP Family Medicine; Visit Provider Emergency Medicine
DX: F99 Mental disorder, not otherwise specified (principal); F60.3 Borderline personality disorder; F17.210 Nicotine dependence, cigarettes, uncomplicated; R45.1 Restlessness and agitation; K21.9 Gastro-esophageal reflux disease without esophagitis; Z79.899 Other long term (current) drug therapy
CPT/HCPCS: 80053; 80164; 80307; 82077; 85025; 93005; 96372; 99282; J3486

== ENCOUNTER 2023-12-21 19:24 | Emergency (ER) | payer MEDICARE, MEDICAID, SELFPAY ==
[2023-12-21 19:26] VITALS: BP 145/96; PULSE 130; RESP 25; TEMP 36.6; O2SAT 98; BMI 27.1
== END 2023-12-21 20:44 | disposition left against medical advice (07) ==
LOC: ED 20:43
PROVIDERS: PCP Family Medicine
DX: Z53.21 Procedure and treatment not carried out due to patient leaving prior to being seen by health care provider (principal)

== ENCOUNTER 2023-12-22 14:47 | Emergency (ER) | payer MEDICARE, MEDICAID, SELFPAY ==
[2023-12-22 14:48] VITALS: BP 105/75; PULSE 104; RESP 16; TEMP 36.3; O2SAT 98; BMI 26.6
== END 2023-12-22 14:56 | disposition left against medical advice (07) ==
LOC: ED 14:58
PROVIDERS: PCP Family Medicine
DX: Z53.21 Procedure and treatment not carried out due to patient leaving prior to being seen by health care provider (principal)

== ENCOUNTER 2023-12-26 22:51 | Emergency (ER) | payer MEDICARE, MEDICAID, SELFPAY ==
[2023-12-26 22:52] VITALS: BP 127/67; PULSE 108; RESP 16; TEMP 36.7; O2SAT 100; BMI 26.5
--- NOTE | 2023-12-26 23:07 | EDS_ITS ---
HPI HPI - Psych History of Present Illness Chief Complaint: Mental Health Informant: patient Narrative Narrative: 38-year-old male presenting for anxiety feeling like he is having a panic attack. He states he is at a boardinghouse and he is having issues with the landlord and they locked the door and he feels that he cannot safely go back there tonight and feels like he is in a homeless scenario right now and feeling very anxious about that. Understands he has a history of frequent visits here and requesting medications states he is asking for a dose of Ativan for his anxiety tonight and then proceeds by saying that he states he will be calm and leave. Denies any suicidal or homicidal ideation. States someone at a different hospital was going to give him something if he had a ride home because he does not live near their but he could not secure a ride at the time and his anxiety is worse. [facility] Medical History Sleep apnea Severe dextromethorphan use disorder Panic attack Anxiety Depression GERD (gastroesophageal reflux disease) Bipolar disorder Home Medications ?Medication ?Instructions ?Recorded ?Last Taken ?Type gabapentin 600 mg tablet 600 mg PO TID 30 days #90 tabs 10/09/23 Unknown Rx atomoxetine 40 mg capsule 40 mg PO DAILY 11/24/23 Unknown History duloxetine 60 mg capsule,delayed 60 mg PO DAILY 11/24/23 Unknown History release famotidine 20 mg tablet 20 mg PO DAILY 11/24/23 Unknown History hydroxyzine HCl 50 mg tablet 100 mg PO Q6H PRN anxiety 11/24/23 Unknown History mirtazapine 30 mg tablet 30 mg PO QHS 11/24/23 Unknown History olanzapine 10 mg tablet 10 mg PO QHS 11/24/23 Unknown History olanzapine 5 mg tablet 5 mg PO DAILY 11/24/23 Unknown History omeprazole 20 mg capsule,delayed 20 mg PO DAILY 11/24/23 Unknown History release pramipexole 0.25 mg tablet 0.25 mg PO DAILY 11/24/23 Unknown History prazosin 2 mg capsule 2 mg PO QHS 11/24/23 Unknown History quetiapine 25 mg tablet 25 mg PO BID 11/24/23 Unknown History quetiapine 300 mg tablet 300 mg PO QHS 11/24/23 Unknown History risperidone 100 mg/0.28 mL 100 mg subcut QMONTH 11/24/23 Unknown History subcutaneous extend release susp syringe trazodone 50 mg tablet 50 mg PO QHS PRN sleep 11/24/23 Unknown History Allergy/AdvReac Type Severity Reaction Status Date / Time No Known Allergies Allergy Verified 12/22/23 14:50 Social History household members: none and other details: Patient reports he has children and recently went degeneration so he could Smoking Status: Current every day smoker tobacco type: cigarettes ROS ROS ED Constitutional Constitutional ED: Denies chills or fever(s) Eyes Eyes: Denies change in vision or diplopia ENT ENT ED: Denies rhinorrhea or sore throat Cardiovascular Cardiovascular: Denies chest pain or palpitations Respiratory/Chest Respiratory/Chest: Denies cough or dyspnea Gastrointestinal Gastrointestinal: Denies abdominal pain, diarrhea, nausea or vomiting Genitourinary Genitourinary ED: Denies dysuria or hematuria Musculoskeletal Musculoskeletal: Denies back pain or neck pain Integumentary Denies abscess or rash Neurologic Neurologic: Denies headache(s), paresthesias or weakness Psychiatric Psychiatric: Reports anxiety; Denies suicidal ideation or suicidal thoughts EXAM Physical Exam Const Vital Signs: 12/26/23 22:52 Temperature 98.1 F Temperature Source Oral Pulse Rate 108 H Respiratory Rate 16 Blood Pressure 127/67 H Blood Pressure Mean 87 Pulse Ox 100 Oxygen Delivery Method Room Air Positive well nourished and well developed General Appearance ED: well developed and NAD HEENT Reports moist mucous membranes normocephalic and atraumatic Eyes PERRL and EOMs intact bilaterally Neck full ROM and supple Resp normal respiratory effort and clear to auscultation bilaterally Cardio regular rate, regular rhythm and no murmurs Back/Spine General Back: other FROM Extremity normal to inspection General Extremety ED: Negative for edema General Extremity: Negative for edema Neuro oriented x3, CN's II-XII intact bilaterally and no sensory deficits noted Sensorium / Orientation: awake and alert Motor Exam: strength 5/5 throughout Psych thought process normal and cooperative Mood & Affect: anxious Thought Content: normal thought content Attention / Concentration: attention grossly intact Skin no rashes or lesions noted and no wounds MDM MDM MDM Narrative Medical decision making narrative: I reviewed his recent chart. Patient has not been here in a month. He has not been violent, disrespectful, or disruptive. I advised him that I would not write him a prescription, I will give him a single dose of Ativan orally and discharged him with the understanding that that does not mean he will be able to come back here and get benzodiazepines at request in the future. Discharge Plan Triage Chief Complaint: Mental Health ED Provider: Fito Nunn Dx/Rx/DC Orders Clinical Impression: Anxiety Instructions: ED Anxiety Reaction Prescriptions: No Action quetiapine 300 mg tablet 300 mg PO QHS famotidine 20 mg tablet 20 mg PO DAILY duloxetine 60 mg capsule,delayed release(DR/EC) 60 mg PO DAILY hydroxyzine HCl 50 mg tablet 100 mg PO Q6H PRN (Reason: anxiety) pramipexole 0.25 mg tablet 0.25 mg PO DAILY prazosin 2 mg capsule 2 mg PO QHS risperidone 100 mg/0.28 mL suspension,extended rel syring 100 mg subcut QMONTH quetiapine 25 mg tablet 25 mg PO BID atomoxetine 40 mg capsule 40 mg PO DAILY trazodone 50 mg tablet 50 mg PO QHS PRN (Reason: sleep) olanzapine 10 mg tablet 10 mg PO QHS mirtazapine 30 mg tablet 30 mg PO QHS olanzapine 5 mg tablet 5 mg PO DAILY omeprazole 20 mg capsule,delayed release(DR/EC) 20 mg PO DAILY gabapentin 600 mg tablet 600 mg PO TID 30 Days Qty: 90 0RF Primary Care Provider: William Castillo Referrals: William Castillo MD [Primary Care Provider] - Print Language: Danish Disposition Disposition: Home, Self Care
[2023-12-26] MEDS: LORazepam 1 MG Tablet PO (23:16)
== END 2023-12-26 23:18 | disposition home or self-care (01) ==
LOC: ED 23:15
PROVIDERS: Emergency Provider Emergency Medicine; PCP Family Medicine; Visit Provider Emergency Medicine
DX: F41.9 Anxiety disorder, unspecified (principal); F17.210 Nicotine dependence, cigarettes, uncomplicated; K21.9 Gastro-esophageal reflux disease without esophagitis; Z59.00 Homelessness unspecified
CPT/HCPCS: 99282

== ENCOUNTER 2024-03-22 01:32 | Emergency (ER) | payer MEDICARE, MEDICAID, SELFPAY ==
[2024-03-22 01:32] VITALS: BP 118/79; PULSE 119; RESP 18; TEMP 36.5; O2SAT 98; BMI 28.2
--- NOTE | 2024-03-22 01:56 | EX.ED.DYSGE1 ---
HPI History of Present Illness Chief Complaint: Anxiety Informant: patient Narrative Narrative: Brought in by EMS due to panic attack. History of anxiety, bipolar followed by counseling center. He is on medications including risperidone and mirtazapine. He states medications are not working. He states previously prescribed Klonopin that helped his symptoms. Unclear why it was stopped. He was in snf for 2 months. Released a week ago. He had his medications however he lost them. He states typically homeless and he loses medications. States a [employer] member provided him stay at days and this evening. Think about his 11-year-old child and holidays had panic attack without any medications. He denies suicidal homicidal ideations. He is being set up to go to rehab facility tomorrow for a place to stay set up by a orth[employer] member. He is not there for any drug rehab issues. Prior similar symptoms: Yes [facility] Medical History Sleep apnea Severe dextromethorphan use disorder Panic attack Anxiety Depression GERD (gastroesophageal reflux disease) Bipolar disorder Home Medications ?Medication ?Instructions ?Recorded ?Last Taken ?Type gabapentin 600 mg tablet 600 mg PO TID 30 days #90 tabs 10/09/23 Unknown Rx atomoxetine 40 mg capsule 40 mg PO DAILY 11/24/23 Unknown History duloxetine 60 mg capsule,delayed 60 mg PO DAILY 11/24/23 Unknown History release famotidine 20 mg tablet 20 mg PO DAILY 11/24/23 Unknown History hydroxyzine HCl 50 mg tablet 100 mg PO Q6H PRN anxiety 11/24/23 Unknown History mirtazapine 30 mg tablet 30 mg PO QHS 11/24/23 Unknown History olanzapine 10 mg tablet 10 mg PO QHS 11/24/23 Unknown History olanzapine 5 mg tablet 5 mg PO DAILY 11/24/23 Unknown History omeprazole 20 mg capsule,delayed 20 mg PO DAILY 11/24/23 Unknown History release pramipexole 0.25 mg tablet 0.25 mg PO DAILY 11/24/23 Unknown History prazosin 2 mg capsule 2 mg PO QHS 11/24/23 Unknown History quetiapine 25 mg tablet 25 mg PO BID 11/24/23 Unknown History quetiapine 300 mg tablet 300 mg PO QHS 11/24/23 Unknown History risperidone 100 mg/0.28 mL 100 mg subcut QMONTH 11/24/23 Unknown History subcutaneous extend release susp syringe trazodone 50 mg tablet 50 mg PO QHS PRN sleep 11/24/23 Unknown History lorazepam 0.5 mg tablet (Ativan) 0.5 mg PO BID PRN anxiety #5 tabs 03/22/24 Unknown Rx Allergy/AdvReac Type Severity Reaction Status Date / Time No Known Allergies Allergy Verified 03/22/24 01:33 Social History household members: none and other details: Patient reports he has children and recently went degeneration so he could Smoking Status: Current every day smoker tobacco type: cigarettes and e-cigarettes ROS ROS ED Constitutional Constitutional ED: Denies chills, fever(s) or sweats ENT ENT ED: Denies sore throat Cardiovascular Cardiovascular: Denies chest pain, leg edema, palpitations or racing heartbeat Respiratory/Chest Respiratory/Chest: Denies cough, dyspnea or dyspnea on exertion Gastrointestinal Gastrointestinal: Denies abdominal pain, diarrhea, nausea or vomiting Genitourinary Genitourinary ED: Denies dysuria, hematuria or urinary frequency Musculoskeletal Musculoskeletal: Denies back pain, extremity pain or neck pain Integumentary Denies rash or wounds Neurologic Neurologic: Denies headache(s), paresthesias or weakness Psychiatric Psychiatric: Reports anxiety; Denies suicidal ideation or suicidal thoughts EXAM Physical Exam Const Vital Signs: 03/22/24 01:32 Temperature 97.7 F L Temperature Source Oral Pulse Rate 119 H Respiratory Rate 18 Blood Pressure 118/79 Blood Pressure Mean 92 Pulse Ox 98 Oxygen Delivery Method Room Air Positive well nourished and well developed Constitutional Narrative: Cooperative, talkative. General Appearance ED: well developed and NAD HEENT Reports moist mucous membranes normocephalic and atraumatic Eyes General Eye ED: Yes normal appearance of both eyes Neck full ROM Chest Wall Chest: Negative for tenderness Resp normal respiratory effort and normal air movement Effort and Inspection: symmetric chest movement; Negative for respiratory distress Cardio regular rhythm and no murmurs Rate: tachycardic Peripheral Pulses: pulses 2+ throughout GI normal to inspection, nondistended, normoactive bowel sounds and non-tender Palpation: Negative for guarding or rebound tenderness present Extremity normal to inspection General Extremety ED: Negative for edema or tenderness General Extremity: Negative for edema Neuro oriented x3 and no sensory deficits noted Sensorium / Orientation: awake and alert Psych Psych Narrative: No suicidal or homicidal ideations. Skin no rashes or lesions noted and no wounds MDM MDM MDM Narrative Medical decision making narrative: Interventions / MDM: Differential diagnosis: Anxiety, panic attacks Diagnosis considered but do not suspect: No suicidal homicidal ideations. My EKG interpretation: N/A Imaging independently reviewed and interpreted by myself: N/A External documents reviewed: N/A Test considered but not ordered:N/A ED course: Patient history of bipolar depression anxiety. No suicidal ideations. Does not have any medications states did not work. He is having increasing anxiety stress for the holidays and his child. He is currently being set up for a place to stay tomorrow. I do not feel he is a threat to himself or others at this time. I will write him for 5 tabs of lorazepam as there was no clonazepam available through meds to bed. Discussed refills through his psychiatry team. All questions were answered. Re-evaluation: stable Disposition discussed with patient/family/significant other: Patient Case discussed with consulting clinician: N/A This note was generated with [employer] dictation software. It may contain incorrect words, spelling, and punctuation that were not noted in checking the note before signing. Discharge Plan Triage Chief Complaint: Anxiety ED Provider: Martin Rice Dx/Rx/DC Orders Clinical Impression: Anxiety attack, History of anxiety Instructions: ED Panic Attack Prescriptions: New lorazepam [Ativan] 0.5 mg tablet 0.5 mg PO BID PRN (Reason: anxiety) Qty: 5 0RF No Action quetiapine 300 mg tablet 300 mg PO QHS famotidine 20 mg tablet 20 mg PO DAILY duloxetine 60 mg capsule,delayed release(DR/EC) 60 mg PO DAILY hydroxyzine HCl 50 mg tablet 100 mg PO Q6H PRN (Reason: anxiety) pramipexole 0.25 mg tablet 0.25 mg PO DAILY prazosin 2 mg capsule 2 mg PO QHS risperidone 100 mg/0.28 mL suspension,extended rel syring 100 mg subcut QMONTH quetiapine 25 mg tablet 25 mg PO BID atomoxetine 40 mg capsule 40 mg PO DAILY trazodone 50 mg tablet 50 mg PO QHS PRN (Reason: sleep) olanzapine 10 mg tablet 10 mg PO QHS mirtazapine 30 mg tablet 30 mg PO QHS olanzapine 5 mg tablet 5 mg PO DAILY omeprazole 20 mg capsule,delayed release(DR/EC) 20 mg PO DAILY gabapentin 600 mg tablet 600 mg PO TID 30 Days Qty: 90 0RF Primary Care Provider: William Castillo Referrals: William Castillo MD [Primary Care Provider] - Activity Restrictions/Additional Instructions: Follow-up with your psychiatry team for discussion of your medications and adjustments as needed. Take clonazepam as needed. Refills would need to be provided by your psychiatry team. Print Language: Surinamese Disposition Disposition: Home, Self Care Discharge Date/Time: 03/22/24 02:30
== END 2024-03-22 02:30 | disposition home or self-care (01) ==
PROVIDERS: Emergency Provider Emergency Medicine; PCP Family Medicine; Visit Provider Emergency Medicine
DX: F41.9 Anxiety disorder, unspecified (principal); F31.9 Bipolar disorder, unspecified; F17.210 Nicotine dependence, cigarettes, uncomplicated; K21.9 Gastro-esophageal reflux disease without esophagitis; Z79.899 Other long term (current) drug therapy; F17.290 Nicotine dependence, other tobacco product, uncomplicated
CPT/HCPCS: 99283

== ENCOUNTER 2024-06-16 19:56 | Emergency (ER) | payer MEDICARE, MEDICAID, SELFPAY ==
[2024-06-16 19:57] VITALS: BP 137/90; PULSE 125; RESP 19; TEMP 37.6; O2SAT 96; BMI 30.2
[2024-06-16 20:51] LABS: Absolute Lymphocyte Count 2.41 X10^3/uL (0.83-4.51); Absolute Neutrophil Count 5.4 X10^3/uL (2.0-7.7); Basophil# 0.03 X10^3/uL; Basophil% 0.3 % (0-1); Eosinophil# 0.14 X10^3/uL; Eosinophils% 1.6 % (0-5); Hematocrit 41.3 % (40-54); Hemoglobin 14.3 g/dL (13.0-16.5); Lymphocyte # 2.41 X10^3/ul (0.83-4.51); Lymphocyte % 27.9 % (19-41); Mean Corp Hgb Conc 34.6 g/dL (32-36); Mean Corpuscular Volume 89.4 fL (80-94); Mean Platelet Vol. 8.4 fl (6.2-12.0); Monocyte# 0.56 X10^3/uL; Monocyte% 6.5 % (0-10); NRBC Flagged by Analyzer 0 % (0-5); Neutrophil # 5.44 X10^3/uL (2.7-7.7); Neutrophil % 63.1 % (47-70); Platelet Count 298 K/mm3 (150-450); RBC Distribution Width SD 44.7 fl (35.1-43.9); Red Blood Count 4.62 M/mm3 (4.6-6.2); White Blood Count 8.6 K/mm3 (4.4-11.0)
--- NOTE | 2024-06-16 20:56 | EX.ED.VIS.PS ---
HPI HPI - Psych History of Present Illness Chief Complaint: Suicidal Informant: patient Onset/Context/Timing Onset: Today Current Severity: Mild Maximum Severity: Mild Associated Symptoms Specific plan (suicidal thought): Patient denies actually wanting to kill himself. Denies a specific plan. Narrative Narrative: 39-year-old male history of bipolar, anxiety and currently residing in a [facility]. Thought today was suicidal so the same and to be evaluated. They need to medically cleared and then I think they are going to send him to a psychiatric facility but they are going to do it from their [facility]. Patient states he took 12-16 dextromethorphan pills about 4 to 5 hours ago. He has a history of that. Denies any other attempts. Prior similar symptoms: Yes Recent Illness/Hospitalization: Yes [facility] Medical History Sleep apnea Severe dextromethorphan use disorder Panic attack Anxiety Depression GERD (gastroesophageal reflux disease) Bipolar disorder Home Medications ?Medication ?Instructions ?Recorded ?Last Taken ?Type gabapentin 600 mg tablet 600 mg PO TID 30 days #90 tabs 10/09/23 Unknown Rx atomoxetine 40 mg capsule 40 mg PO DAILY 11/24/23 Unknown History duloxetine 60 mg capsule,delayed 60 mg PO DAILY 11/24/23 Unknown History release famotidine 20 mg tablet 20 mg PO DAILY 11/24/23 Unknown History hydroxyzine HCl 50 mg tablet 100 mg PO Q6H PRN anxiety 11/24/23 Unknown History mirtazapine 30 mg tablet 30 mg PO QHS 11/24/23 Unknown History olanzapine 10 mg tablet 10 mg PO QHS 11/24/23 Unknown History olanzapine 5 mg tablet 5 mg PO DAILY 11/24/23 Unknown History omeprazole 20 mg capsule,delayed 20 mg PO DAILY 11/24/23 Unknown History release pramipexole 0.25 mg tablet 0.25 mg PO DAILY 11/24/23 Unknown History prazosin 2 mg capsule 2 mg PO QHS 11/24/23 Unknown History quetiapine 25 mg tablet 25 mg PO BID 11/24/23 Unknown History quetiapine 300 mg tablet 300 mg PO QHS 11/24/23 Unknown History risperidone 100 mg/0.28 mL 100 mg subcut QMONTH 11/24/23 Unknown History subcutaneous extend release susp syringe trazodone 50 mg tablet 50 mg PO QHS PRN sleep 11/24/23 Unknown History lorazepam 0.5 mg tablet (Ativan) 0.5 mg PO BID PRN anxiety #5 tabs 03/22/24 Unknown Rx Allergy/AdvReac Type Severity Reaction Status Date / Time No Known Allergies Allergy Verified 06/16/24 19:57 Social History household members: none and other details: Patient reports he has children and recently went degeneration so he could Smoking Status: Current every day smoker tobacco type: cigarettes and e-cigarettes ROS ROS ED ROS Narrative Denies recent illness. Constitutional Constitutional ED: Denies chills or fever(s) Eyes Eyes: Denies blurry vision ENT ENT ED: Denies ear pain Cardiovascular Cardiovascular: Denies chest pain or palpitations Respiratory/Chest Respiratory/Chest: Denies cough or dyspnea Gastrointestinal Gastrointestinal: Denies abdominal pain Genitourinary Genitourinary ED: Denies dysuria or hematuria Musculoskeletal Musculoskeletal: Denies arthralgias or back pain Integumentary Denies abscess or Abrasions Neurologic Neurologic: Denies headache(s) Psychiatric Psychiatric: Reports anxiety Endocrine Endocrinology: Denies polydipsia, polyphagia or polyuria Hematologic/Lymphatic Hematologic/Lymphatic: Denies easy bleeding, easy bruising or lymphadenopathy Allergic/Immunologic Allergic/Immunologic ED: Denies mouth swelling, tongue swelling or urticaria EXAM Physical Exam Const Vital Signs: 06/16/24 19:57 Temperature 99.6 F H Temperature Source Oral Pulse Rate 125 H Respiratory Rate 19 H Blood Pressure 137/90 H Blood Pressure Mean 105 Pulse Ox 96 Oxygen Delivery Method Room Air Positive well nourished and well developed; Negative for cachectic, contractures or unkempt General Appearance ED: well developed and NAD; Negative for unkempt, cachectic, contractures or pallor Nutritional Appearance: Negative for cachectic HEENT Reports moist mucous membranes normocephalic and atraumatic; Negative for trauma or tenderness Eyes PERRL and EOMs intact bilaterally General Eye ED: Negative for pale conjunctiva or scleral icterus Neck no lymphadenopathy, supple and no JVD General: Negative for tenderness Resp normal respiratory effort and clear to auscultation bilaterally Effort and Inspection: Negative for retractions Auscultation: Negative for rales, rhonchi, wheezes or diminished lung sounds Cardio S1 normal heart sound, S2 normal heart sound and no murmurs Rate: tachycardic Rhythm: regular rhythm GI non-tender, non-distended and no masses Inspection: Negative for abdominal distention Auscultation: normoactive bowel sounds Palpation: soft; Negative for tender or guarding Back/Spine no CVA tenderness General Back: Negative for CVA tenderness Cervical Spine: Negative for cervical spine tenderness Thoracic Spine / Upper Back: Negative for thoracic spinal tenderness Lumbar Spine / Lower Back: Negative for lumbar spinal tenderness Extremity normal to inspection General Extremety ED: Negative for edema or tenderness General Extremity: Negative for edema Neuro oriented x3 and CN's II-XII intact bilaterally Sensorium / Orientation: alert, oriented to person, oriented to place and oriented to time; Negative for orientation impaired, confused, lethargic or stuporous Motor Exam: strength 5/5 throughout Psych mental status grossly normal, thought process normal, cooperative, affect normal, speech normal, activity/motor behavior normal, denies hallucinations, denies homicidal ideation and denies suicidal ideation Appearance: grossly normal, appropriate and well kempt; Negative for unkempt, disheveled, bizarre or intubated Attitude: calm and engaged Activity / Motor Behavior: appropriate eye contact Speech: normal speech Thought Process: normal thought process Thought Content: normal thought content Attention / Concentration: attention grossly intact Memory / Cognition: memory grossly intact Insight: insight good Judgement: judgement good Skin General Skin Exam: Negative for jaundice or pallor Lesions: no lesions Rashes: no rashes Trauma: Negative for abrasion or laceration Wounds: Negative for amputation MDM MDM MDM Narrative Medical decision making narrative: 39-year-old male history of bipolar reportedly suicidal but he denies. He needs him he medically cleared he will go back to the [facility] and they will decide and set up transfer to a psychiatric facility. Repeat exam at 9:46 PM patient doing well. Standing ambulating in the room. Repeat exam benign. He will be discharged back to the [facility] they are going to make disposition to the mental health facility. History & Record Review Discussion w/independent historian: Patient Additional record(s) reviewed:: Prior inpatient record, Prior outpatient record, Prior ED visit and Prior labs Lab Data Attestation: I reviewed the patient's lab results. Lab results narrative: CBC shows a white count 8. H&H 14 and 41. Platelets 298. Chemistries unremarkable. Gap 13. BUN and creatinine 24 and 1.21. Glucose 112. Alcohol negative. Urine tox pending. Labs: Laboratory Results - last 24 hr 06/16/24 20:42 WBC 8.6 RBC 4.62 Hgb 14.3 Hct 41.3 MCV 89.4 MCH 31.0 MCHC 34.6 RDW Std Deviation 44.7 H RDW Coeff of Gabriel 14.0 Plt Count 298 MPV 8.4 Immature Gran % (Auto) 0.600 Neut % (Auto) 63.1 Lymph % (Auto) 27.9 [place] % (Auto) 6.5 Eos % (Auto) 1.6 Baso % (Auto) 0.3 Absolute Neuts (auto) 5.4 Absolute Lymphs (auto) 2.41 Nucleated RBC % 0 Discharge Plan Triage Chief Complaint: Suicidal ED Provider: Javi Whitehead Dx/Rx/DC Orders Clinical Impression: Suicidal thoughts, History of bipolar disorder Instructions: ED Bipolar Disorder Prescriptions: No Action quetiapine 300 mg tablet 300 mg PO QHS famotidine 20 mg tablet 20 mg PO DAILY duloxetine 60 mg capsule,delayed release(DR/EC) 60 mg PO DAILY hydroxyzine HCl 50 mg tablet 100 mg PO Q6H PRN (Reason: anxiety) pramipexole 0.25 mg tablet 0.25 mg PO DAILY prazosin 2 mg capsule 2 mg PO QHS risperidone 100 mg/0.28 mL suspension,extended rel syring 100 mg subcut QMONTH quetiapine 25 mg tablet 25 mg PO BID atomoxetine 40 mg capsule 40 mg PO DAILY trazodone 50 mg tablet 50 mg PO QHS PRN (Reason: sleep) olanzapine 10 mg tablet 10 mg PO QHS mirtazapine 30 mg tablet 30 mg PO QHS olanzapine 5 mg tablet 5 mg PO DAILY omeprazole 20 mg capsule,delayed release(DR/EC) 20 mg PO DAILY lorazepam [Ativan] 0.5 mg tablet 0.5 mg PO BID PRN (Reason: anxiety) Qty: 5 0RF gabapentin 600 mg tablet 600 mg PO TID 30 Days Qty: 90 0RF Primary Care Provider: William Castillo Referrals: William Castillo MD [Primary Care Provider] - Activity Restrictions/Additional Instructions: Medically cleared. Proceed with mental health evaluation Print Language: Bhutanese Disposition Disposition: Home, Self Care
[2024-06-16 21:14] LABS: Alcohol, Blood (Medical)-Serum < 10.1 mg/dL (<=10.0)
[2024-06-16 21:15] LABS: Anion Gap 13 (5-15); BUN 24 mg/dL (4-19); BUN/Creat Ratio 19.4 RATIO (10-20); Calcium,Total 9.5 mg/dL (7.6-11.0); Carbon Dioxide 22.6 mmol/L (21.0-32.0); Chloride 102 mmol/L (98-108); Creatinine, Serum 1.21 mg/dL (0.70-1.20); EST Glomerular Filtration Rate 78 (>60); Estimated Creatinine Clearance 95.16 ml/min (50-250); Glucose 112 mg/dL (70-99); Potassium 4.5 mmol/L (3.3-5.1); Sodium Level 138 mmol/L (133-145)
[2024-06-16 21:56] VITALS: RESP 18
[2024-06-16 22:00] VITALS: PULSE 91; RESP 18; O2SAT 99
[2024-06-16 22:11] VITALS: BP 132/60; PULSE 98; RESP 18; TEMP 36.7; O2SAT 98
--- NOTE | 2024-06-16 22:12 | ED.RN ---
POLICE NOTIFIED OF DISCHARGE AND STATED OK TO D/C.
--- NOTE | 2024-06-16 22:20 | ED.RN ---
CHART FAXED, CRISIS CALLED.
[2024-06-16 22:28] LABS: Amphetamine Urine PRESUMTIVE POSITIVE (<1000 ng/mL); Barbiturate Urine NEGATIVE (< 200 ng/mL); Benzodiazepine Urine NEGATIVE (< 200 ng/mL); Buprenorphine Urine NEGATIVE (< 200 ng/mL); Cocaine Urine NEGATIVE (< 300 ng/mL); Fentanyl, Urine NEGATIVE; Methadone Urine NEGATIVE (< 300 ng/mL); Opiates Urine NEGATIVE (< 300 ng/mL); Oxycodone, Urine NEGATIVE (< 100 ng/mL); PCP Urine NEGATIVE (< 25 ng/mL); THC Urine NEGATIVE (< 50 ng/mL)
[2024-06-16 22:38] VITALS: PULSE 97; RESP 20; O2SAT 100
--- NOTE | 2024-06-16 22:39 | ED.RN ---
Spoke to Venessa from crisis, provided pt update. Questions/concerns answered, Venessa stated crisis is coming to assess pt
--- NOTE | 2024-06-16 23:50 | ED.RN ---
2210 WENT TO DISCHARGE PT PER MD'S ORDER,CRISIS CALLED AND STATED THEY WANTED TO EVALUATE HIM. discharge cancelled.
[2024-06-17] MEDS: LORazepam 1 MG Tablet PO (00:04)
--- NOTE | 2024-06-17 02:21 | ED.RN ---
Spoke to RN from [facility]. RN asked for results on pt's tox screen, home meds and overall pt behavior. This RN provided update, questions/concerns answered.
--- NOTE | 2024-06-17 02:58 | ED.RN ---
PT ACCEPTED AT [facility] [address]: [phone]
[2024-06-17 04:31] VITALS: BP 132/60; PULSE 97; RESP 20; TEMP 36.8; O2SAT 100
[2024-06-17 06:38] VITALS: BP 114/88; PULSE 87; RESP 18; O2SAT 97
--- NOTE | 2024-06-17 07:37 | ED.RN ---
PHYSICIANS OUT SOURCED [facility] WILL BE HERE @ 7352
== END 2024-06-17 09:30 | disposition home or self-care (01) ==
PROVIDERS: Emergency Provider Emergency Medicine; PCP Family Medicine; Visit Provider Emergency Medicine
DX: R45.851 Suicidal ideations (principal); F31.9 Bipolar disorder, unspecified; F17.210 Nicotine dependence, cigarettes, uncomplicated; F41.9 Anxiety disorder, unspecified; K21.9 Gastro-esophageal reflux disease without esophagitis; F17.290 Nicotine dependence, other tobacco product, uncomplicated; F55.8 Abuse of other non-psychoactive substances
CPT/HCPCS: 80048; 80307; 82077; 85025; 99284

== ENCOUNTER 2024-10-17 11:15 | Emergency (ER) | payer MEDICARE, MEDICAID, SELFPAY ==
[2024-10-17 11:16] VITALS: BP 155/98; PULSE 102; RESP 24; TEMP 36.5; O2SAT 98; BMI 30.2
--- NOTE | 2024-10-17 11:30 | EKG12_ITS ---
Test Reason : CP Blood Pressure : */* mmHG Vent. Rate : 105 BPM Atrial Rate : 105 BPM P-R Int : 132 ms QRS Dur : 94 ms QT Int : 352 ms P-R-T Axes : 37 61 35 degrees QTcB Int : 465 ms Sinus tachycardia Otherwise normal ECG Confirmed by Brian Lozada ([id number]), acquisitions editor PACO MANZANO ([id number]) on 10/18/2024 11:25:04 AM Referred By: Confirmed By: Brian Lozada
--- NOTE | 2024-10-17 11:43 | ED.VIS.CHEST ---
HPI History of Present Illness Chief Complaint: Chest Pain Narrative Narrative: Chief complaint and HPI: Chest pain. 39-year-old male with past medical history of bipolar disorder, anxiety, depression, substance abuse presents for evaluation of chest pain. Patient states that he has recently been in residential as well as a mental health facility for the past few months. States he got out on Wednesday. States since Wednesday he has been using methamphetamines every day. Admits to decreased p.o. intake and insomnia. Patient states about 25 minutes prior to arrival he began having chest pain. States his body is sore. States prior to this relapse he was clean for 117 days. 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 He denies any fever, chills, shortness of breath, abdominal pain, nausea, vomiting. Review of systems: See HPI Medications: As listed on the chart Allergies: As listed on the chart PFSH: Per chart Vital signs: As listed on the chart. Reviewed. Physical exam: Gen: A&O x3, anxious Head: Normocephalic, atraumatic Eyes: No sclera icterus, conjunctiva clear, PERRL, EOMI ENT: Dry mucous membranes Neck: Trachea midline, No JVD CV: Tachycardia, regular rhythm, no murmurs, no peripheral edema Resp: Lungs CTA BL, no w/r/c GI: Abd soft, non-distended, non-tender, no r/r/g Musc: Full ROM, no deformity Skin: Warm, dry Neuro: Alert, oriented, grossly intact, sensation intact Psych: Anxious [facility] Medical History Sleep apnea Severe dextromethorphan use disorder Panic attack Anxiety Depression GERD (gastroesophageal reflux disease) Bipolar disorder Home Medications ?Medication ?Instructions ?Recorded ?Last Taken ?Type hydroxyzine HCl 50 mg tablet 100 mg PO Q6H PRN anxiety 11/24/23 Unknown History mirtazapine 30 mg tablet 30 mg PO QHS 11/24/23 Unknown History omeprazole 20 mg capsule,delayed 20 mg PO DAILY 11/24/23 Unknown History release prazosin 2 mg capsule 2 mg PO QHS 11/24/23 Unknown History quetiapine 300 mg tablet 300 mg PO QHS 11/24/23 Unknown History risperidone 100 mg/0.28 mL 100 mg subcut QMONTH 11/24/23 Unknown History subcutaneous extend release susp syringe benztropine 0.5 mg tablet 0.5 mg PO DAILY 10/17/24 Unknown History buspirone 15 mg tablet 15 mg PO TID 10/17/24 Unknown History desvenlafaxine succinate 100 mg 100 mg PO DAILY 10/17/24 Unknown History tablet,extended release 24 hr desvenlafaxine succinate 50 mg 50 mg PO DAILY 10/17/24 Unknown History tablet,extended release 24 hr gabapentin 300 mg capsule 300 mg PO Q8H 10/17/24 Unknown History guanfacine 2 mg tablet 2 mg PO DAILY 10/17/24 Unknown History lurasidone 60 mg tablet 60 mg PO DAILY 10/17/24 Unknown History prazosin 1 mg capsule 2 mg PO Q12H 10/17/24 Unknown History risperidone 1 mg tablet 1 mg PO BID 10/17/24 Unknown History Allergy/AdvReac Type Severity Reaction Status Date / Time No Known Allergies Allergy Verified 10/17/24 11:20 Social History household members: none and other details: Patient reports he has children and recently went degeneration so he could Smoking Status: Current every day smoker tobacco type: cigarettes and e-cigarettes EXAM Physical Exam Const Vital Signs: 10/17/24 11:16 10/17/24 11:19 10/17/24 13:21 Temperature 97.7 F L Temperature Source Oral Pulse Rate 102 H 79 Respiratory Rate 24 H 18 Respiratory Effort Normal Non-Labored Respiratory Pattern Tachypnea Blood Pressure 155/98 H Blood Pressure Mean 117 Pulse Ox 98 100 Oxygen Delivery Method Room Air 10/17/24 14:07 10/17/24 15:00 Temperature Temperature Source Pulse Rate 74 80 Respiratory Rate 24 H 20 H Respiratory Effort Respiratory Pattern Blood Pressure Blood Pressure Mean Pulse Ox 98 97 Oxygen Delivery Method MDM MDM MDM Narrative Medical decision making narrative: 39-year-old male with past medical history of bipolar disorder, anxiety, depression, substance abuse presents for evaluation of chest pain. Patient states he has been using methamphetamines since Wednesday. Associated symptom is insomnia, muscle pain, decreased p.o. intake. Patient would like placement for methamphetamine abuse. Differential diagnosis includes but is not limited to methamphetamine intoxication, electrolyte abnormality, dehydration, rhabdomyolysis, low suspicion for ACS or thyroid disease. NS bolus, aspirin, Ativan ordered. Social work consulted. Cardiac workup ordered. Patient has a legal guardian. Social work contacted the legal guardian. She states that patient is currently in a nursing home. No need for placement at a facility, patient will need to be discharged back to the nursing home. She did consent to medical workup. EKG and chest x-ray reviewed see below. CBC unremarkable. CMP unremarkable except for mild AST elevation at 40. Magnesium level unremarkable. TSH unremarkable. Troponin x 2 unremarkable. Urine drug screen positive for amphetamine and cannabis. CPK elevated at 779. This is likely secondary to the patient's methamphetamine abuse. Another NS bolus will be ordered with repeat CPK. Repeat CPK downtrending at 594. On reevaluation, patient's symptoms have improved. He was able to tolerate p.o. intake. His chest pain and other symptoms are likely secondary to his methamphetamine abuse. He was educated that he needs to drink plenty of fluids for the next several days. He needs to use stop using methamphetamines. Follow-up with primary care physician and his outpatient resources. He confirmed understanding the plan. Patient stable to discharge home. EKG: Interpreted by me/EM physician: EKG shows sinus tachycardia with a heart rate of 105. No acute ischemic changes. Diagnostic: Interpreted by me/EM physician: Chest x-ray without pneumonia, effusion, cardiomegaly, pneumothorax. Radiology in agreement. Impression: 1. Methamphetamine intoxication with abuse 2. Chest pain secondary to #1 3. Myalgias secondary to #1 Lab Data Labs: Laboratory Results - last 24 hr 10/17/24 10/17/24 10/17/24 11:24 13:16 13:43 WBC 7.5 RBC 4.86 Hgb 14.4 Hct 40.6 MCV 83.5 MCH 29.6 MCHC 35.5 RDW Std Deviation 42.4 RDW Coeff of Gabriel 14.1 Plt Count 272 MPV 8.1 Immature Gran % (Auto) 0.400 Neut % (Auto) 60.4 Lymph % (Auto) 30.0 [place] % (Auto) 8.4 Eos % (Auto) 0.5 Baso % (Auto) 0.3 Absolute Neuts (auto) 4.5 Absolute Lymphs (auto) 2.25 Nucleated RBC % 0 Sodium 139 Potassium 3.5 Chloride 103 Carbon Dioxide 23.8 Anion Gap 12 BUN 13 Creatinine 1.12 Estim Creat Clear Calc 108.92 Est GFR (MDRD) Non-Af 86 BUN/Creatinine Ratio 11.5 Glucose 98 Calcium 9.3 Magnesium 2.2 Total Bilirubin 0.50 AST 40 H ALT 24 Alkaline Phosphatase 74 Total Creatine Kinase 779 H 594 H Troponin T High Sens 12 Troponin T Hi Sens 2 Hr 8 Total Protein 7.2 Albumin 4.5 Globulin 2.7 Albumin/Globulin Ratio 1.7 TSH 1.160 Urine Opiates Screen NEGATIVE U Buprenorphine Qual NEGATIVE Ur Oxycodone Screen NEGATIVE Urine Methadone Screen NEGATIVE Urine Fentanyl Screen NEGATIVE Ur Barbiturates Screen NEGATIVE Ur Phencyclidine Scrn NEGATIVE Ur Amphetamines Screen PRESUMPTIVE POSITIVE U Benzodiazepines Scrn NEGATIVE Urine Cocaine Screen NEGATIVE U Cannabinoids Screen PRESUMPTIVE POSITIVE Radiography Diagnostic Testing: Clinical Impression(s) from Imaging Studies Chest X-Ray 10/17/24 11:55 IMPRESSION: NEGATIVE CHEST Reading Location: [facility] Discharge Plan Triage Chief Complaint: Chest Pain ED Provider: Norm Camp Dx/Rx/DC Orders Prescriptions: No Action quetiapine 300 mg tablet 300 mg PO QHS hydroxyzine HCl 50 mg tablet 100 mg PO Q6H PRN (Reason: anxiety) prazosin 2 mg capsule 2 mg PO QHS risperidone 100 mg/0.28 mL suspension,extended rel syring 100 mg subcut QMONTH mirtazapine 30 mg tablet 30 mg PO QHS omeprazole 20 mg capsule,delayed release(DR/EC) 20 mg PO DAILY benztropine 0.5 mg tablet 0.5 mg PO DAILY gabapentin 300 mg capsule 300 mg PO Q8H guanfacine 2 mg tablet 2 mg PO DAILY buspirone 15 mg tablet 15 mg PO TID desvenlafaxine succinate 50 mg tablet extended release 24 hr 50 mg PO DAILY desvenlafaxine succinate 100 mg tablet extended release 24 hr 100 mg PO DAILY prazosin 1 mg capsule 2 mg PO Q12H lurasidone 60 mg tablet 60 mg PO DAILY risperidone 1 mg tablet 1 mg PO BID Primary Care Provider: William Castillo Referrals: William Castillo MD [Primary Care Provider] - Print Language: Guatemalan
[2024-10-17] MEDS: 0.9% Normal Saline (1000mL) 1,000 ML 999 ML IV (11:44)
--- NOTE | 2024-10-17 11:55 | RAD_ITS ---
PROCEDURE: CHEST PA AND LATERAL 10/17/2024 REASON FOR EXAM: CHEST PAIN TECHNIQUE: CHEST PA AND LATERAL COMPARISON: Prior study dated June 14, 2023. FINDINGS: Hardware: EKG electrodes are seen Heart: The heart is nonenlarged Mediastinum: The mediastinal contour is unremarkable. Lungs: The lungs are clear. Bones: The bones are unremarkable. RAD/Chest PA and Lateral IMPRESSION: NEGATIVE CHEST Reading Location: [id number]
[2024-10-17 11:58] LABS: Hematocrit 40.6 % (40-54); Hemoglobin 14.4 g/dL (13.0-16.5); Immature Granulocytes Count 0.030 X10^3/uL (0.0-0.0); Mean Corp Hgb Conc 35.5 g/dL (32-36); Mean Corpuscular Volume 83.5 fL (80-94); Mean Platelet Vol. 8.1 fl (6.2-12.0); NRBC Flagged by Analyzer 0 % (0-5); Platelet Count 272 K/mm3 (150-450); RBC Distribution Width CV 14.1 % (11.6-14.6); RBC Distribution Width SD 42.4 fl (35.1-43.9); Red Blood Count 4.86 M/mm3 (4.6-6.2); White Blood Count 7.5 K/mm3 (4.4-11.0)
[2024-10-17] MEDS: Lorazepam 2 MG/ML WCH Syringe 1 MG IV (12:02)
[2024-10-17 12:09] LABS: CPK Total, Creatine Kinase 779 U/L (24-195)
[2024-10-17 12:19] LABS: AST(SGOT) 40 U/L (<=37); Alanine Aminotransfer ALT/SGPT 24 U/L (<=46); Albumin, Serum 4.5 g/dL (3.5-5.0); Alkaline Phosphatase 74 U/L (40-129); Anion Gap 12 (5-15); BUN 13 mg/dL (4-19); BUN/Creat Ratio 11.5 RATIO (10-20); Calcium,Total 9.3 mg/dL (7.6-11.0); Carbon Dioxide 23.8 mmol/L (21.0-32.0); Chloride 103 mmol/L (98-108); Estimated Creatinine Clearance 108.92 ml/min (50-250); Globulin 2.7 g/dL (2.2-4.2); Glucose 98 mg/dL (70-99); Magnesium 2.2 mg/dL (1.5-2.2); Potassium 3.5 mmol/L (3.3-5.1); Troponin T High Sensitivity 12 ng/L (<=22)
[2024-10-17 13:21] VITALS: PULSE 79; RESP 18; O2SAT 100
--- NOTE | 2024-10-17 13:50 | CM.ED ---
Social work Patient's doctor approached this SW stating patient's desire to go to a detox facility for meth due to patient's recent and historical meth abuse. SW called patient's legal guardian, Clinton Elizabeth, (ph: [phone]). Clinton stated Clinton would agree with whatever was medically necessary, but Clinton stated belief that patient was not in need of detox and patient would benefit from returning to patient's halfway whenever patient was medically cleared. Per Clinton, patient was recently released from a mental health facility and assisted and patient did not like patient's current halfway. Patient's doctor was updated and patient was discharged back to patient's halfway once medically cleared. Per request from Clinton, patient's legal guardian, patient's discharge packet and positive toxicology report [facility] to [facility] (f: [phone]). Cyndee Leo, ANTENNA INSTALLER, MANAGER RADIO
[2024-10-17 14:07] VITALS: PULSE 74; RESP 24; O2SAT 98
[2024-10-17] MEDS: 0.9% Normal Saline (1000mL) 1,000 ML 1000 ML IV (14:07)
[2024-10-17 14:14] LABS: Barbiturate Urine NEGATIVE (< 200 ng/mL); Benzodiazepine Urine NEGATIVE (< 200 ng/mL); PCP Urine NEGATIVE (< 25 ng/mL); THC Urine PRESUMPTIVE POSITIVE (< 50 ng/mL)
[2024-10-17 14:27] LABS: Troponin T High Sens 2 HR 8 ng/L (<=22)
[2024-10-17 15:00] VITALS: PULSE 80; RESP 20; O2SAT 97
[2024-10-17 15:12] LABS: CPK Total, Creatine Kinase 594 U/L (24-195)
--- NOTE | 2024-11-07 18:19 | CM.ED ---
Social Work On November 03, 2024, this senior copywriter received notice from patient's guardian patient access representative Clinton Elizabeth, who states changes in guardianship patient access representative for this patient. [facility] is to now be listed as emergency contact with primary number to call as [phone]. Patient's demographics updated in the EMR as of 11.07.2024. -JUAN LUIS Ríos
== END 2024-10-17 15:47 | disposition home or self-care (01) ==
PROVIDERS: Emergency Provider Surgery; PCP Family Medicine; Visit Provider Surgery
DX: F15.120 Other stimulant abuse with intoxication, uncomplicated (principal); F31.9 Bipolar disorder, unspecified; F41.9 Anxiety disorder, unspecified; F17.210 Nicotine dependence, cigarettes, uncomplicated; G47.00 Insomnia, unspecified; R07.9 Chest pain, unspecified; K21.9 Gastro-esophageal reflux disease without esophagitis; Z79.899 Other long term (current) drug therapy; F17.290 Nicotine dependence, other tobacco product, uncomplicated
CPT/HCPCS: 71046; 80053; 80307; 82550; 83735; 84443; 84484; 85025; 93005; 96361; 96374; 99285; A4216

== ENCOUNTER 2024-11-02 11:25 | Outpatient (RCR) | payer MEDICARE, MEDICAID, SELFPAY ==
[2024-10-12 17:29] LABS: Barbiturate Urine NEGATIVE (< 200 ng/mL); Benzodiazepine Urine NEGATIVE (< 200 ng/mL); PCP Urine NEGATIVE (< 25 ng/mL); THC Urine NEGATIVE (< 50 ng/mL)
[2024-11-02 13:04] LABS: Barbiturate Urine NEGATIVE (< 200 ng/mL); Benzodiazepine Urine NEGATIVE (< 200 ng/mL); PCP Urine NEGATIVE (< 25 ng/mL); THC Urine NEGATIVE (< 50 ng/mL)
== END 2024-11-02 23:59 ==
LOC: BIMLAB 11:25
PROVIDERS: PCP Family Medicine
DX: F19.10 Other psychoactive substance abuse, uncomplicated (principal)
CPT/HCPCS: 80307

== ENCOUNTER 2024-11-15 09:43 | Outpatient (RCR) | payer MEDICARE, MEDICAID, SELFPAY ==
[2024-11-15 11:11] LABS: Barbiturate Urine NEGATIVE (< 200 ng/mL); Benzodiazepine Urine NEGATIVE (< 200 ng/mL); PCP Urine NEGATIVE (< 25 ng/mL); THC Urine NEGATIVE (< 50 ng/mL)
== END 2024-11-15 18:00 | disposition home or self-care (01) ==
LOC: LAB 09:43
PROVIDERS: PCP Family Medicine
DX: F19.10 Other psychoactive substance abuse, uncomplicated (principal)
CPT/HCPCS: 80307

== ENCOUNTER 2025-03-27 02:51 | Emergency (ER) | payer MEDICARE, MEDICAID, SELFPAY ==
[2025-03-27 02:52] VITALS: BP 129/101; PULSE 138; RESP 18; TEMP 36.6; O2SAT 96; BMI 31.4
--- NOTE | 2025-03-27 03:11 | EX.ED.DYSGE1 ---
HPI History of Present Illness Chief Complaint: General Illness Informant: patient and EMS Narrative Narrative: Patient is a 40-year-old male with no significant PMHx presenting with emesis and diarrhea. - Reports 2 episodes of emesis and 5 episodes of diarrhea starting around 5 hrs ago. - Describes abdominal pain as mild, central, and tight, likely due to emesis; denies cramping. - Denies fever, hematochezia, or hematemesis. - Consumed a soft and greasy meal from his senior care last night, no one else who ate has symptoms that he knows of; denies recent antibiotic use or travel. - No known sick contacts. [facility] Medical History Sleep apnea Severe dextromethorphan use disorder Panic attack Anxiety Depression GERD (gastroesophageal reflux disease) Bipolar disorder Home Medications ?Medication ?Instructions ?Recorded ?Last Taken ?Type hydroxyzine HCl 50 mg tablet 100 mg PO Q6H PRN anxiety 11/24/23 Unknown History mirtazapine 30 mg tablet 30 mg PO QHS 11/24/23 Unknown History omeprazole 20 mg capsule,delayed 20 mg PO DAILY 11/24/23 Unknown History release prazosin 2 mg capsule 2 mg PO QHS 11/24/23 Unknown History quetiapine 300 mg tablet 300 mg PO QHS 11/24/23 Unknown History risperidone 100 mg/0.28 mL 100 mg subcut QMONTH 11/24/23 Unknown History subcutaneous extend release susp syringe benztropine 0.5 mg tablet 0.5 mg PO DAILY 10/17/24 Unknown History buspirone 15 mg tablet 15 mg PO TID 10/17/24 Unknown History desvenlafaxine succinate 100 mg 100 mg PO DAILY 10/17/24 Unknown History tablet,extended release 24 hr desvenlafaxine succinate 50 mg 50 mg PO DAILY 10/17/24 Unknown History tablet,extended release 24 hr gabapentin 300 mg capsule 300 mg PO Q8H 10/17/24 Unknown History guanfacine 2 mg tablet 2 mg PO DAILY 10/17/24 Unknown History lurasidone 60 mg tablet 60 mg PO DAILY 10/17/24 Unknown History prazosin 1 mg capsule 2 mg PO Q12H 10/17/24 Unknown History risperidone 1 mg tablet 1 mg PO BID 10/17/24 Unknown History ondansetron 8 mg disintegrating 8 mg PO Q8H PRN nausea and 03/27/25 Unknown Rx tablet vomiting #12 tabs Allergy/AdvReac Type Severity Reaction Status Date / Time No Known Allergies Allergy Verified 03/27/25 02:54 Social History household members: none and other details: Patient reports he has children and recently went degeneration so he could Smoking Status: Current every day smoker tobacco type: cigarettes and e-cigarettes ROS ROS ED Constitutional Constitutional ED: Denies chills or fever(s) Eyes Eyes: Denies change in vision or diplopia ENT ENT ED: Denies rhinorrhea or sore throat Cardiovascular Cardiovascular: Denies chest pain, lightheadedness, palpitations or syncope Respiratory/Chest Respiratory/Chest: Denies cough or dyspnea Gastrointestinal Gastrointestinal: Reports abdominal pain, diarrhea, nausea and vomiting; Denies hematemesis, hematochezia or melena Genitourinary Genitourinary ED: Denies dysuria or hematuria Musculoskeletal Musculoskeletal: Denies back pain or neck pain Integumentary Denies abscess or rash Neurologic Neurologic: Denies headache(s), paresthesias or weakness Psychiatric Psychiatric: Denies anxiety or suicidal thoughts EXAM Physical Exam Const Vital Signs: 03/27/25 02:52 03/27/25 02:56 Temperature 97.8 F Temperature Source Oral Pulse Rate 138 H Respiratory Rate 18 Respiratory Effort Normal Respiratory Pattern Normal Blood Pressure 129/101 H Blood Pressure Mean 110 Pulse Ox 96 Oxygen Delivery Method Room Air Positive well nourished and well developed General Appearance ED: well developed and NAD HEENT Reports moist mucous membranes normocephalic and atraumatic Eyes PERRL and EOMs intact bilaterally Neck full ROM and supple Resp normal respiratory effort and clear to auscultation bilaterally Cardio regular rate, regular rhythm and no murmurs Rate: tachycardic GI non-tender and non-distended Auscultation: hyperactive bowel sounds Palpation: soft Back/Spine no CVA tenderness General Back: other FROM Extremity normal to inspection General Extremety ED: Negative for edema, pulses abnormal or tenderness General Extremity: Negative for edema or pulses abnormal Neuro oriented x3, CN's II-XII intact bilaterally and no sensory deficits noted Sensorium / Orientation: awake and alert Motor Exam: strength 5/5 throughout Psych Psych Narrative: flat affect Skin no rashes or lesions noted and no wounds MDM MDM MDM Narrative Medical decision making narrative: Assessment: The patient is a 40-year-old male presenting for vomiting twice and five episodes of diarrhea that began around 21:00 last night. Benign abdominal exam, normal EKG after fluid resuscitation, mildly elevated creatinine (1.34) likely from dehydration, and mild leukocytosis (12.1) with slight left shift support presumed viral gastroenteritis. Initial sinus tachycardia improved after IV fluids and symptomatic therapy; no evidence of dysrhythmia. Plan: - Administered 0.5?1 L IV crystalloid bolus in ED. - Administered IV Zofran for nausea. - Prescribed oral Zofran on discharge. - Provided oral rehydration and dietary instructions; supportive care emphasized. - Reviewed return precautions and advised PCP follow-up if symptoms persist >3-5 days. - Discharged home in improved condition. Diagnostics: - EKG interpreted: sinus rhythm 97 bpm, no acute ST-T changes. Independently interpreted by me, Fito Nunn. - Labs: creatinine 1.34 mg/dL (slightly elevated); WBC 12.1 K/?L with slight left shift, no bandemia. Reevaluations: - Patient re-examined after treatment: improved symptoms, tolerating oral fluids, no abdominal pain, heart rate normalized. Portions of this note were generated using voice recognition software ([employer] Dictation). I have reviewed the contents and every effort has been made to ensure accuracy; however, inadvertent errors in grammar, spelling, punctuation, or word choice may occur, that were not noted before signing the document and should not alter the intended clinical meaning. Lab Data Attestation: I reviewed the patient's lab results. Labs: Laboratory Results - last 24 hr 03/27/25 03:26 WBC 12.1 H RBC 5.43 Hgb 15.7 Hct 46.0 MCV 84.7 MCH 28.9 MCHC 34.1 RDW Std Deviation 44.4 H RDW Coeff of Gabriel 14.5 Plt Count 220 MPV 8.4 Immature Gran % (Auto) 0.500 Neut % (Auto) 87.7 H Lymph % (Auto) 5.4 L [place] % (Auto) 5.3 Eos % (Auto) 0.9 Baso % (Auto) 0.2 Absolute Neuts (auto) 10.6 H Absolute Lymphs (auto) 0.65 L Nucleated RBC % 0 Sodium 139 Potassium 4.0 Chloride 105 Carbon Dioxide 22.2 Anion Gap 12 BUN 16 Creatinine 1.34 H Estim Creat Clear Calc 91.87 Est GFR (MDRD) Non-Af 69 BUN/Creatinine Ratio 11.9 Glucose 134 H Calcium 9.3 Total Bilirubin 0.49 AST 18 ALT 11 Alkaline Phosphatase 55 Total Protein 7.0 Albumin 4.3 Globulin 2.7 Albumin/Globulin Ratio 1.6 Lipase 24 Rhythm Strip Rhythm Strip: Sinus Tach Rate: 130 Ectopy: None EKG Initial EKG: Attestation: I personally reviewed and interpreted this EKG as follows: Interpretation: Sinus Rhythm (97) and No Acute Injury Pattern Comments: Nml axis & intervals; nml EKG Discharge Plan Triage Chief Complaint: General Illness ED Provider: Fito Nunn Dx/Rx/DC Orders Clinical Impression: Gastroenteritis, Tachycardia, Mild dehydration Instructions: Viral Gastroenteritis Prescriptions: New ondansetron 8 mg tablet,disintegrating 8 mg PO Q8H PRN (Reason: nausea and vomiting) Qty: 12 0RF No Action quetiapine 300 mg tablet 300 mg PO QHS hydroxyzine HCl 50 mg tablet 100 mg PO Q6H PRN (Reason: anxiety) prazosin 2 mg capsule 2 mg PO QHS risperidone 100 mg/0.28 mL suspension,extended rel syring 100 mg subcut QMONTH mirtazapine 30 mg tablet 30 mg PO QHS omeprazole 20 mg capsule,delayed release(DR/EC) 20 mg PO DAILY benztropine 0.5 mg tablet 0.5 mg PO DAILY gabapentin 300 mg capsule 300 mg PO Q8H guanfacine 2 mg tablet 2 mg PO DAILY buspirone 15 mg tablet 15 mg PO TID desvenlafaxine succinate 50 mg tablet extended release 24 hr 50 mg PO DAILY desvenlafaxine succinate 100 mg tablet extended release 24 hr 100 mg PO DAILY prazosin 1 mg capsule 2 mg PO Q12H lurasidone 60 mg tablet 60 mg PO DAILY risperidone 1 mg tablet 1 mg PO BID Primary Care Provider: William Castillo Referrals: William Castillo MD [Primary Care Provider, Family Practice] - 3-5 Days if not improving Activity Restrictions/Additional Instructions: - Take ondansetron (Zofran) for nausea as prescribed. - Continue drinking fluids as you are tolerating to stay hydrated. - Rest at home and follow the supportive care instructions given. - Follow up with your doctor for reevaluation if your vomiting or diarrhea lasts longer than 3 to 5 days. Print Language: Pashto Disposition Disposition: Home, Self Care
--- NOTE | 2025-03-27 03:12 | EKG12_ITS ---
Test Reason : DYSRHYTHMIA Blood Pressure : */* mmHG Vent. Rate : 97 BPM Atrial Rate : 97 BPM P-R Int : 130 ms QRS Dur : 90 ms QT Int : 346 ms P-R-T Axes : 39 72 44 degrees QTcB Int : 439 ms Normal sinus rhythm Normal ECG Confirmed by David Pacheco ([id number]), editor greeting card PACO MANZANO ([id number]) on 03/30/2025 8:20:50 AM Referred By: Confirmed By: David Pacheco
[2025-03-27] MEDS: 0.9% Normal Saline (1000mL) 1,000 ML 999 ML IV (03:27)
[2025-03-27 03:36] LABS: Hematocrit 46.0 % (40-54); Hemoglobin 15.7 g/dL (13.0-16.5); Immature Granulocytes Count 0.060 X10^3/uL (0.0-0.0); Mean Corp Hgb Conc 34.1 g/dL (32-36); Mean Corpuscular Volume 84.7 fL (80-94); Mean Platelet Vol. 8.4 fl (6.2-12.0); NRBC Flagged by Analyzer 0 % (0-5); Platelet Count 220 K/mm3 (150-450); RBC Distribution Width CV 14.5 % (11.6-14.6); RBC Distribution Width SD 44.4 fl (35.1-43.9); Red Blood Count 5.43 M/mm3 (4.6-6.2); White Blood Count 12.1 K/mm3 (4.4-11.0)
[2025-03-27 04:05] LABS: AST(SGOT) 18 U/L (<=37); Alanine Aminotransfer ALT/SGPT 11 U/L (<=46); Albumin, Serum 4.3 g/dL (3.5-5.0); Alkaline Phosphatase 55 U/L (40-129); Anion Gap 12 (7-18); BUN 16 mg/dL (4-19); BUN/Creat Ratio 11.9 RATIO (10-20); Calcium,Total 9.3 mg/dL (7.6-11.0); Carbon Dioxide 22.2 mmol/L (20.0-29.0); Chloride 105 mmol/L (96-106); Estimated Creatinine Clearance 91.87 ml/min (50-250); Globulin 2.7 g/dL (2.2-4.2); Glucose 134 mg/dL (70-99); Lipase 24 U/L (13-75); Potassium 4.0 mmol/L (3.5-5.1)
--- OUTSIDE RECORDS SUMMARY | 2025-03-27 04:05 | XMS RPT_ITS | CCD ---
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 [place], [address] OPIATES Negative Normal < 300 ng/mL [facility] Comment on above: Order Comment: UNK Performed By: #### L 500.4050, L501.5200, L501.9520, L100.0100, L501.4021 #### [facility] [address] [place], [address] OXYCODONE Negative Normal < 100 ng/mL [facility] Comment on above: Order Comment: UNK Performed By: #### L 500.4050, L501.5200, L501.9520, L100.0100, L501.4021 #### [facility] [address] [place], [address] PCP Negative Normal < 25 ng/mL [facility] Comment on above: Order Comment: UNK Performed By: #### L 500.4050, L501.5200, L501.9520, L100.0100, L501.4021 #### [facility] [address] [place], [address] THC Negative Normal < 50 ng/mL [facility] Comment on above: Order Comment: UNK Performed By: #### L 500.4050, L501.5200, L501.9520, L100.0100, L501.4021 #### [facility] [address] [place], [address] Urine benzodiazepine levelon 11-15-2024 Benzodiazepines Ql (U) Negative < 200 ng/mL [facility] Urine cocaine levelon 2024 Cocaine Ql (U) Negative < 300 ng/mL [facility] Urine yhnoh-3-devipeqlbtocgs abinol (THC) measurementon 11-15-2024 Cannabinoids Screen Ql (U) Negative < 50 ng/mL [facility] Urine phencyclidine (PCP) de tectionon 11-15-2024 Phencyclidine Ql (U) Negative < 25 ng/mL [facility] L3410.9992on 11-07-2024 [facility] Misc. COMMENT Normal . [facility] Comment on above: Order Comment: URINE [id number] URINE Result Comment: Test Ordered: [id number] Dextromethorphan + Mtb, Ur Qt Dextromethorphan Comment ng/mL MX Reference Range: NEGATIVE >4000.0 Dextrorphan Comment ng/mL MX Reference Range: NEGATIVE >4000.0 Note: Dextrorphan (dextromethorphan metabolite) is indistinguishable from levorphanol in this analysis. This test was developed and its performance characteristics determined by [facility]. It has not been cleared or approved by the Food and Drug Administration. Performed at: [facility] [address] [place] [address] [id number] Emissions Inspector: Juana Golden [facility], Phone: [phone] Performed at: [address] [id number] Emissions Inspector: Josep Thompson PhD, Phone: [phone] Performed By: #### L 874.7575, W103.1115, K546.4817, U539.0700, L986.5062 #### [facility] [address] [place], [place], [address] Abigail 11-06-2024 SHUN Telephone ([facility]) ELKIN VAUGHN ([id number]) 1985 M T Date Time Provider Department 11/06/24 FUNMI HUMMEL [facility] During your visit today, we recorded the following information about you: Leia Mccann LPN 11/06/2024 9:11 AM Signed [facility] calls to report pt states provider Funmi Hummel CNP, prescribed lidocaine 5% patches. Salvador reports pt is no longer using those and is asking for [facility] to be notified to take that off pt's med list. Salvador reports when a pt lets them know they are not taking/using a med they have to have it discontinued at the pharmacy so med list is current at [facility]. ALICE Torres Jacqueline A, GERONIMO.FLORENTIN 11/06/2024 9:32 AM Signed Removed from med list. Allergies As of Date: 11/06/2024 (No Known Allergies) Date Reviewed: 10/19/2024 Reviewed by: Richard Casper MA - Fully Assessed Reason for Visit: Medication Problem [65] Prescriptions as of 11/06/2024 - desvenlafaxine ER (PRISTIQ) 100 mg 24 hr tablet Take 100 mg by mouth once daily. - desvenlafaxine ER (PRISTIQ) 50 mg 24 hr tablet Take 50 mg by mouth once daily. - busPIRone (BUSPAR) 15 mg tablet Take 15 mg by mouth three times a day. - benztropine (COGENTIN) 0.5 mg tablet Take 0.5 mg by mouth once daily. - lurasidone (LATUDA) 60 mg tablet Take 60 mg by mouth daily with food. - guanFACINE (TENEX) 2 mg tablet Take 2 mg by mouth once daily. - prazosin (MINIPRESS) 1 mg cap Take 3 mg by mouth daily at bedtime. - omeprazole (PRILOSEC) 20 mg capsule Take 1 capsule by mouth once daily. - methocarbamol (ROBAXIN) 500 mg tablet Take 1 tablet by mouth three times a day as needed. 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 Thoracic spine Encounter Status:Closed by FUNMI HUMMEL on 11/06/24 Normal [facility] Amphetamine detection with 1 000 ng/mL as cutoffon 11-02-2024 Amphetamines Screen method >1000 ng/mL Ql (U) Negative < 200 ng/mL [facility] No Panel Informationon 11-02 Urine Buprenorphine Qualitative Negative < 200 ng/mL [facility] Urine Oxycodone Screen Negative < 100 ng/mL [facility] Quantitative urine opiates m easurementon 11-02-2024 Opiates Ql (U) Negative < 300 ng/mL [facility] Screening urine fentanyl morenita surementon 11-02-2024 fentaNYL Screen Ql (U) Negative [facility] Urine Drug Screen (VISTA)on 11-02-2024 AMPHETAMINES Negative Normal <1000 ng/mL [facility] Comment on above: Order Comment: UNK Performed By: #### L 500.4050, L501.5200, L501.9520, L100.0100, L501.4021 #### [facility] [address] [place], [address] BARBITIURATES Negative Normal < 200 ng/mL [facility] Comment on above: Order Comment: UNK Performed By: #### L 500.4050, L501.5200, L501.9520, L100.0100, L501.4021 #### [facility] [address] [place], [address] BENZODIAZIPINE Negative Normal < 200 ng/mL [facility] Comment on above: Order Comment: UNK Performed By: #### L 500.4050, L501.5200, L501.9520, L100.0100, L501.4021 #### [facility] [address] [place], [address] BUP Ur Drug Scr Negative Normal < 200 ng/mL [facility] Comment on above: Order Comment: UNK Performed By: #### L 500.4050, L501.5200, L501.9520, L100.0100, L501.4021 #### [facility] [address] [place], [address] COCAINE Negative Normal < 300 ng/mL [facility] Comment on above: Order Comment: UNK Performed By: #### L 500.4050, L501.5200, L501.9520, L100.0100, L501.4021 #### [facility] [address] [place], [address] Fentanyl Negative Normal [facility] Comment on above: Order Comment: UNK Performed By: #### L 500.4050, L501.5200, L501.9520, L100.0100, L501.4021 #### [facility] [address] [place], [address] METHADONE Negative Normal < 300 ng/mL [facility] Comment on above: Order Comment: UNK Performed By: #### L 500.4050, L501.5200, L501.9520, L100.0100, L501.4021 #### [facility] [address] [place], [address] OPIATES Negative Normal < 300 ng/mL [facility] Comment on above: Order Comment: UNK Performed By: #### L 500.4050, L501.5200, L501.9520, L100.0100, L501.4021 #### [facility] [address] [place], [address] OXYCODONE Negative Normal < 100 ng/mL [facility] Comment on above: Order Comment: UNK Performed By: #### L 500.4050, L501.5200, L501.9520, L100.0100, L501.4021 #### [facility] [address] [place], [address] PCP Negative Normal < 25 ng/mL [facility] Comment on above: Order Comment: UNK Performed By: #### L 500.4050, L501.5200, L501.9520, L100.0100, L501.4021 #### [facility] [address] [place], [address] THC Negative Normal < 50 ng/mL [facility] Comment on above: Order Comment: UNK Performed By: #### L 500.4050, L501.5200, L501.9520, L100.0100, L501.4021 #### [facility] [address] [place], [address] Urine benzodiazepine levelon 11-02-2024 Benzodiazepines Ql (U) Negative < 200 ng/mL [facility] Urine cocaine levelon 2024 Cocaine Ql (U) Negative < 300 ng/mL [facility] Urine nuyos-4-yznjqqxrsmvywq abinol (THC) measurementon 11-02-2024 Cannabinoids Screen Ql (U) Negative < 50 ng/mL [facility] Urine phencyclidine (PCP) de tectionon 11-02-2024 Phencyclidine Ql (U) Negative < 25 ng/mL [facility] XR Thoracic spine AP and Lat eral and Swimmerson 10-26-2024 * * *Final Report* * * DATE OF EXAM: Oct 20 2024 9:54AM WOX 5261 - XR THORACIC 3V AP/LAT/SWIMMERS / PROCEDURE REASON: Acute midline thoracic back pain * * * * Physician Interpretation * * * * HISTORY: Acute midline thoracic back pain . Pt. states mid back pain. No injury TECHNIQUE: XR THORACIC 3V AP/LAT/SWIMMERS Laterality: NOT APPLICABLE Number of different views (projections): 4 COMPARISON: None RESULT: Suboptimal evaluation of the thoracic spinal lateral views due to overlying artifacts from superimposed structures. Thoracic vertebral body heights are grossly maintained without evidence of compression deformity. Mild multilevel disc space narrowing and endplate osteophytes. Paraspinal soft tissues are unremarkable. DIVISION OF RADIOLOGY Provider, [facility] - 10/26/2024 * * *Final Report* * * DATE OF EXAM: Oct 20 2024 9:54AM WOX 5261 - XR THORACIC 3V AP/LAT/SWIMMERS / PROCEDURE REASON: Acute midline thoracic back pain * * * * Physician Interpretation * * * * HISTORY: Acute midline thoracic back pain . Pt. states mid back pain. No injury TECHNIQUE: XR THORACIC 3V AP/LAT/SWIMMERS Laterality: NOT APPLICABLE Number of different views (projections): 4 COMPARISON: None RESULT: Suboptimal evaluation of the thoracic spinal lateral views due to overlying artifacts from superimposed structures. Thoracic vertebral body heights are grossly maintained without evidence of compression deformity. Mild multilevel disc space narrowing and endplate osteophytes. Paraspinal soft tissues are unremarkable. IMPRESSION IMPRESSION: Suboptimal evaluation on lateral views. No visualized acute osseous abnormality. Mild degenerative changes. 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: [facility] Transcribe Date/Time: Oct 26 2024 7:00A Dictated by : JULIETTE GUTIERREZ MD This examination was interpreted and the report reviewed and electronically signed by: JULIETTE GUTIERREZ MD on Oct 26 2024 7:01AM EST [facility] XR Thoracic spine AP and Lat eral and SwimmersOrdered By: [facility] Provider on 10-26-2024 [facility] XR THORACIC 3V AP/LAT/SWIMME RSon 10-20-2024 XR THORACIC 3V AP/LAT/SWIMMERS * * *Final Report* * * DATE OF EXAM: Oct 20 2024 9:54AM WOX 5261 - XR THORACIC 3V AP/LAT/SWIMMERS / PROCEDURE REASON: Acute midline thoracic back pain * * * * Physician Interpretation * * * * HISTORY: Acute midline thoracic back pain . Pt. states mid back pain. No injury TECHNIQUE: XR THORACIC 3V AP/LAT/SWIMMERS Laterality: NOT APPLICABLE Number of different views (projections): 4 COMPARISON: None RESULT: Suboptimal evaluation of the thoracic spinal lateral views due to overlying artifacts from superimposed structures. Thoracic vertebral body heights are grossly maintained without evidence of compression deformity. Mild multilevel disc space narrowing and endplate osteophytes. Paraspinal soft tissues are unremarkable. IMPRESSION: Suboptimal evaluation on lateral views. No visualized acute osseous abnormality. Mild degenerative changes. 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: [facility] Transcribe Date/Time: Oct 26 2024 7:00A Dictated by : JULIETTE GUTIERREZ MD This examination was interpreted and the report reviewed and electronically signed by: JULIETTE GUTIERREZ MD on Oct 26 2024 7:01AM EST [id number] Normal [facility] XR Thoracic spine AP and Lat eral and Swimmerson 10-20-2024 Radiology [facility]narrative[facility] ) ELKIN VAUGHN ([id number]) 1985 M T Date Time Provider Department 10/19/24 2:00 PM FUNMI HUMMEL During your visit today, we recorded the following information about you: Pulse Blood pressure Weight 83/minute 120/76 99.8 kg Funmi Hummel APRN.FITNESS AND WELLNESS MANAGER 10/19/2024 2:32 PM Signed This is a 39 year old male who presents today with: Patient presents with: Back Pain HISTORY OF PRESENT ILLNESS: Elkin Vaughn is a 39 year old male. Patient presents with: Back Pain Elkin Vaughn is a 39-year-old male presenting for evaluation of chronic back pain. Chronic Back Pain: - Chronic back pain, recently exacerbated. - Describes pain as throbbing and terrible ache. - Pain localized to the middle-lower back, slightly above the waistline. - Current pain level rated at 6/10; previously 8/10. - Aggravated by walking and lying down. - Denies radiation of pain to legs or wrapping around the torso. - Denies known trauma or injury; recalls using a waterbed for a long time, which may have contributed to Arlens back pain. - Denies SOB, cough, wheezing, fever, chills, bowel or bladder issues, and constipation. - Denies IV drug use. - Previously on gabapentin, which may have helped with pain management. PAST MEDICAL HISTORY: PAST MEDICAL HISTORY Diagnosis Date Asthma EXERCISE INDUCED GERD (gastroesophageal reflux disease) Nightmares FRANCISCO (obstructive sleep apnea) Psychiatric disorder BIPOLAR; SCHIZOAFFECTIVE D/O PAST SURGICAL HISTORY Procedure Laterality Date PAST SURGICAL HISTORY OF wisdom teeth ALLERGIES Patient has no known allergies. MEDICATIONS Current Outpatient Medications Medication Sig desvenlafaxine ER (PRISTIQ) 100 mg 24 hr tablet Take 100 mg by mouth once daily. desvenlafaxine ER (PRISTIQ) 50 mg 24 hr tablet Take 50 mg by mouth once daily. busPIRone (BUSPAR) 15 mg tablet Take 15 mg by mouth three times a day. benztropine (COGENTIN) 0.5 mg tablet Take 0.5 mg by mouth once daily. lurasidone (LATUDA) 60 mg tablet Take 60 mg by mouth daily with food. guanFACINE (TENEX) 2 mg tablet Take 2 mg by mouth once daily. prazosin (MINIPRESS) 1 mg cap Take 3 mg by mouth daily at bedtime. clonazePAM (KLONOPIN) 0.5 mg tablet gabapentin (NEURONTIN) 600 mg tablet Take 1 tablet by mouth three times a day. omeprazole (PRILOSEC) 20 mg capsule Take 1 capsule by mouth two times a day. (Patient taking differently: Take 20 mg by mouth once daily.) famotidine (PEPCID) 20 mg tablet Take 1 tablet by mouth two times a day as needed (acid reflux). Mirtazapine 45 mg disintegrating tablet prazosin (MINIPRESS) 2 mg cap Take 2 mg by mouth once daily. No current facility-administered medications for this visit. FAMILY HISTORY Problem Relation Age of Onset No Known Problems Mother Cancer Father skin Social History Tobacco Use Smoking status: Every Day Current packs/day: 0.20 Types: Cigarettes Smokeless tobacco: Never Vaping Use Vaping status: current everyday user Substance Use Topics Alcohol use: No Drug use: Yes Types: Marijuana Comment: daily REVIEW OF SYSTEMS Constitutional: (-) fever, (-) chills Respiratory: (-) shortness of breath, (-) cough, (-) wheezing Gastrointestinal: (-) bowel dysfunction, (-) constipation Genitourinary: (-) urinary incontinence Musculoskeletal: (+) back pain, (-) radiating leg pain EXAM: BP 120/76 Pulse 83 Wt 99.8 kg (220 lb) SpO2 98% BMI 28.25 kg/m? PHYSICAL EXAM: GENERAL: NAD, alert and oriented SKIN: unremarkable, no rash or skin lesions. HEAD: normocephalic LUNGS: Clear to auscultation bilaterally, no wheezes/rhonchi/rales. HEART: Regular rate and rhythm, no murmurs. No ectopy. EXTREMITIES: Normal, No deformities, No skin discoloration, No edema. BACK: Tenderness noted in the mid-lower back region at T9 or T10. No radiation of pain. No loss of bowel or bladder function. NEURO: Awake, alert and oriented x3, cranial nerves II-XII grossly intact, normal gait, no involuntary motions LABS: Labs: - (No date) - WBC: 7.5 - Hemoglobin: 14.4 - Hematocrit: 40.6 - Platelets: 272 - Differential: Normal - Sodium: 139 - Potassium: 3.5 - BUN: 13 - Creatinine: 1.12 - Glucose: 98 - GFR: 86 - AST: 40 (minimally elevated) - CPK: 779 - Troponin: 12 - TSH: 1.16 Imaging: - (No date) Chest X-ray: Negative ASSESSMENT/PLAN: 1. Gastroesophageal reflux disease, unspecified whether esophagitis present (K21.9) - Stable 2. 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 Pain is described as throbbing and located in the mid-lower back, without radiation to the legs or around the torso. No associated shortness of breath, cough, wheeze, bowel or bladder dysfunction, or fever and chills. (more content not included)... Normal [facility] ELK[facility] ([id number]) 1985 [facility] Date Time Provider Department 10/19/24 ALAN CASTILLO INTWS During your visit today, we recorded the following information about you: Sol Lucas LPN 10/19/2024 2:44 PM Signed Electronic PA rec'd and completed for lidoderm patches. Sol Lucas LPN 10/19/2024 4:25 PM Signed This was denied. Date: 10/19/2024 Enrollee Name: ELKIN VAUGHN Member Number: [id number] Coverage of your drug was denied We denied coverage under Medicare Part D for the following drug(s) you or your prescribing provider asked for: LIDOCAINE 5% PATCH Why was coverage for this drug denied? We denied coverage for this drug because in order for a drug to be considered for coverage under Medicare Part D, it must be used for a medically-accepted indication (medical conditions that the drug is used for). Medically-accepted indications are supported by the Food and Drug Administration (FDA) labeling of the drug and/or medical references approved by Medicare Part D. We must deny this request because the information provided by your prescriber (other intervertebral disc degeneration, thoracic region) did not meet the requirement(s) of a medically accepted indication. We may consider approval of this drug when you have a certain diagnosis (such as, pain that occurs after having shingles). We based this decision on Chapter 6 Section 10.6 of the Medicare Prescription Drug Benefit Manual and your health plan?s prior authorization criteria named Lidocaine Agents Patch. Funmi Hummel APRN.FITNESS AND WELLNESS MANAGER 10/20/2024 9:48 AM Signed Patient is in a rehab and not permitted to take the gabapentin that he was previously on. He is having pain in a very precise area of T9-T10. We are limiting substances and trying to control his pain. X-ray is pending for actual diagnosis. Pain is discogenic in nature. Sol Lucas LPN 10/20/2024 10:34 AM Signed With pt's insurance denial it notes this is only covered for shingle pain dx. Allergies As of Date: 10/19/2024 (No Known Allergies) Date Reviewed: 10/19/2024 Reviewed by: Richard Casper MA - Fully Assessed Reason for Visit: Insurance Authorization [[id number]] Primary Visit Diagnosis:Acute midline thoracic back pain [M54.6] Order(s):XR THORACIC GENERAL 3V AP/LAT/SWIMMERS [4980000] Order #: [id number] FUTURE Prescriptions as of 10/26/2024 - desvenlafaxine ER (PRISTIQ) 100 mg 24 hr tablet Take 100 mg by mouth once daily. - desvenlafaxine ER (PRISTIQ) 50 mg 24 hr tablet Take 50 mg by mouth once daily. - busPIRone (BUSPAR) 15 mg tablet Take 15 mg by mouth three times a day. - benztropine (COGENTIN) 0.5 mg tablet Take 0.5 mg by mouth once daily. - lurasidone (LATUDA) 60 mg tablet Take 60 mg by mouth daily with food. - guanFACINE (TENEX) 2 mg tablet Take 2 mg by mouth once daily. - prazosin (MINIPRESS) 1 mg cap Take 3 mg by mouth daily at bedtime. - omeprazole (PRILOSEC) 20 mg capsule Take 1 capsule by mouth once daily. - lidocaine (LIDODERM) 5 % Apply 1 patch as directed once daily. Thoracic spine - methocarbamol (ROBAXIN) 500 mg tablet Take 1 tablet by mouth three times a day as needed. 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 COMMENT Normal . [facility] Comment on above: Order Comment: ROOM TEMP [id number] Dextromethorphan URINE Result Comment: Test Ordered: [id number] Dextromethorphan + Mtb, Ur Qt Dextromethorphan Negative ng/mL MX Reference Range: NEGATIVE Dextrorphan Negative ng/mL MX Reference Range: NEGATIVE Note: Dextrorphan (dextromethorphan metabolite) is indistinguishable from levorphanol in this analysis. This test was developed and its performance characteristics determined by [facility]. It has not been cleared or approved by the Food and Drug Administration. Performed at: [facility] [address] [place] [address] [id number] Emissions Inspector: Juana Golden [employer], Phone: [phone] Performed at: [address] [id number] Emissions Inspector: Josep Thompson PhD, Phone: [phone] Performed By: #### L 3410.9992, L505.5000 #### [facility] [address] [place], [address] 12 Lead EKGon 10-17-2024 12 Lead EKG [facility] [address] [place] [address] 12 Lead EKG 10/17/24 1130 MR#: [id number] Acct: [id number] Name: ELKIN VAUGHN Rep #: [id number] : 1985 39 From: Brandt Lozada MD Attending Dr: Status: DEP ER Ordering Dr: Norm Camp DO Date: 5 Location: ED Sex: M C Admitted: Test Reason : CP Blood Pressure : */* mmHG Vent. Rate : 105 BPM Atrial Rate : 105 BPM P-R Int : 132 ms QRS Dur : 94 ms QT Int : 352 ms P-R-T Axes : 37 61 35 degrees QTcB Int : 465 ms Sinus tachycardia Otherwise normal ECG Confirmed by Brandt Lozada ([id number]), editor greeting card PACO MANZANO ([id number]) on 10/18/2024 11:25:04 AM Referred By: Confirmed By: Brandt Lozada 10/18/24 1125 Date Brandt Lozada MD CC: Dr. 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 Castillo MD Signed Normal [facility] Absolute lymphocyte countOrd ered By: Norm Cmap on 10-17-2024 Lymphocytes Auto (Unsp spec) [#/Vol] 2.25 10*3/uL 0.83-4.51 [facility] Absolute neutrophil countOrd ered By: Norm Camp on 10-17-2024 Neutrophils (Bld) [#/Vol] 4.5 10*3/uL 2.0-7.7 [facility] Amphetamine detection with 1 000 ng/mL as cutoffOrdered By: Norm Camp on 10-17-2024 Amphetamines Screen method >1000 ng/mL Ql (U) Positive <1000 ng/mL [facility] Comment on above: If confirmation test ing is needed, a separate order will be required to send out testing to the reference laboratory. Amphetamines Screen method >1000 ng/mL Ql (U) Negative < 200 ng/mL [facility] Anion gap in Serum or Plasma Ordered By: Norm Camp on 10-17-2024 Anion gap [Moles/Vol] 12 mmol/L 08-17 [facility] Automated lymphocyte count a s percentage of total leukocytesOrdered By: Norm Conrado on 10-17-2024 Lymphocytes/100 WBC Auto (Unsp spec) 30.0 % - [facility] BUN/creatinine ratioOrdered By: [facility] on 10-17-2024 Urea nitrogen/Creatinine [Mass ratio] 11.5 mg/mg - [facility] Basophil percentageOrdered B y: Norm Camp on 10-17-2024 Basophils/100 WBC (Bld) 0.3 % 0-1 [facility] Bilirubin, totalOrdered By: Norm Camp on 10-17-2024 Bilirubin [Mass/Vol] 0.50 mg/dL 0.00-1.30 [facility] CBC W/Diff, Automatedon 10-03 Absolute Lymph 2.25 X10 3/uL Normal 0.83-4.51 [facility] Comment on above: Performed By: #### L 500.4050, L501.5200, L501.9520, L100.0100, L501.4021 #### [facility] [address] [place], [place], [id number] Absolute Neut 4.5 X10 3/uL Normal 2.0-7.7 [facility] Comment on above: Performed By: #### L 500.4050, L501.5200, L501.9520, L100.0100, L501.4021 #### [facility] [address] [place], [address] Basophils/100 WBC (Bld) 0.3 % Normal 0-1 [facility] Comment on above: Performed By: #### L 500.4050, L501.5200, L501.9520, L100.0100, L501.4021 #### [facility] [address] [place], [address] Eosinophils/100 WBC (Bld) 0.5 % Normal 0-5 [facility] Comment on above: Performed By: #### L 500.4050, L501.5200, L501.9520, L100.0100, L501.4021 #### [facility] [address] [place], [address] Erythrocyte distribution width (RBC) [Ratio] 14.1 % Normal 11.6-14.6 [facility] Comment on above: Performed By: #### L 500.4050, L501.5200, L501.9520, L100.0100, L501.4021 #### [facility] [address] [place], [address] Hematocrit (Bld) [Volume fraction] 40.6 % Normal 40-54 [facility] Comment on above: Performed By: #### L 500.4050, L501.5200, L501.9520, L100.0100, L501.4021 #### [facility] [address] [place], [address] Hemoglobin (Bld) [Mass/Vol] 14.4 g/dL Normal 13.0-16.5 [facility] Comment on above: Performed By: #### L 500.4050, L501.5200, L501.9520, L100.0100, L501.4021 #### [facility] [address] [place], [address] IG% 0.400 Normal 0.0-0.9 [facility] Comment on above: Result Comment: IG% - Immature Granulocytes (promyelocytes, myelocytes and metamyelocytes) > 1% indicates that a LEFT SHIFT is Present. Performed By: #### L 500.4050, L501.5200, L501.9520, L100.0100, L501.4021 #### [facility] [address] [place], [address] Lymphocytes/100 WBC (Bld) 30.0 % Normal 19-41 [facility] Comment on above: Performed By: #### L 500.4050, L501.5200, L501.9520, L100.0100, L501.4021 #### [facility] [address] [place], [address] MCH (RBC) [Entitic mass] 29.6 pg Normal 27.0-32.0 [facility] Comment on above: Performed By: #### L 500.4050, L501.5200, L501.9520, L100.0100, L501.4021 #### [facility] [address] [place], [address] MCHC (RBC) [Mass/Vol] 35.5 g/dL Normal 32-36 [facility] Comment on above: Performed By: #### L 500.4050, L501.5200, L501.9520, L100.0100, L501.4021 #### [facility] [address] [place], [address] MCV (RBC) [Entitic vol] 83.5 fL Normal 80-94 [facility] Comment on above: Performed By: #### L 500.4050, L501.5200, L501.9520, L100.0100, L501.4021 #### [facility] [address] [place], [address] Monocytes/100 WBC (Bld) 8.4 % Normal 0-10 [facility] Comment on above: Performed By: #### L 500.4050, L501.5200, L501.9520, L100.0100, L501.4021 #### [facility] [address] [place], [address] Neutrophils/100 WBC (Bld) 60.4 % Normal 47-70 [facility] Comment on above: Performed By: #### L 500.4050, L501.5200, L501.9520, L100.0100, L501.4021 #### [facility] [address] [place], [address] Nucleated RBC (Bld) [#/Vol] 0 10*3/uL Normal 0-5 [facility] Comment on above: Performed By: #### L 500.4050, L501.5200, L501.9520, L100.0100, L501.4021 #### [facility] [address] [place], [address] Platelet mean volume (Bld) [Entitic vol] 8.1 fL Normal 6.2-12.0 [facility] Comment on above: Performed By: #### L 500.4050, L501.5200, L501.9520, L100.0100, L501.4021 #### [facility] [address] [place], [address] Platelets (Bld) [#/Vol] 272 10*3/uL Normal 150-450 [facility] Comment on above: Performed By: #### L 500.4050, L501.5200, L501.9520, L100.0100, L501.4021 #### [facility] [address] [place], [address] RBC (Bld) [#/Vol] 4.86 10*6/uL Normal 4.6-6.2 [facility] Comment on above: Performed By: #### L 500.4050, L501.5200, L501.9520, L100.0100, L501.4021 #### [facility] [address] [place], [address] RDW SD 42.4 fl Normal 35.1-43.9 [facility] Comment on above: Performed By: #### L 500.4050, L501.5200, L501.9520, L100.0100, L501.4021 #### [facility] [address] [place], [address] WBC (Bld) [#/Vol] 7.5 10*3/uL Normal 4.4-11.0 [facility] Comment on above: Performed By: #### L 500.4050, L501.5200, L501.9520, L100.0100, L501.4021 #### [facility] [address] [place], [address] CPK Total, Creatine Kinaseon 10-17-2024 CPK TOTAL 594 U/L High - [facility] Comment on above: Performed By: #### L 501.3620 #### [facility] [address] [place], [address] CPK TOTAL 779 U/L High - [facility] Comment on above: Performed By: #### L 500.4050, L501.5200, L501.9520, L100.0100, L501.4021 #### [facility] [address] [place], [address] Carbon dioxide, total [Moles /volume] in Central venous bloodOrdered By: Norm Camp on 10-17-2024 CO2 [Moles/Vol] 23.8 mmol/L 21.0-32.0 [facility] Chest PA and Lateralon 10-17 Chest PA and Lateral [facility] Imaging Services [address] [place] [address] Chest PA and Lateral MR#: [id number] Acct: [id number] Name: ELKIN VAUGHN Rep #: [id number] : 1985 M 39 From: Shashi delvalle MD PCP: Dr. Alan Castillo MD Status: REG ER Study: Chest PA and Lateral Date of Exam: 10/17/24 Exam# [id number] Ordering Dr: Norm Camp DO PROCEDURE: CHEST PA AND LATERAL 10/17/2024 REASON FOR EXAM: CHEST PAIN TECHNIQUE: CHEST PA AND LATERAL COMPARISON: Prior study dated June 14, 2023. FINDINGS: Hardware: EKG electrodes are seen Heart: The heart is nonenlarged Mediastinum: The mediastinal contour is unremarkable. Lungs: The lungs are clear. Bones: The bones are unremarkable. RAD/Chest PA and Lateral IMPRESSION: NEGATIVE CHEST Reading Location: [id number] CC: Dr. 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 [facility] Chloride assayOrdered By: Steve Camp on 10-17-2024 Chloride [Moles/Vol] 103 mmol/L 98-108 [facility] Comprehensive Metabolic Prof ilon 10-17-2024 Albumin [Mass/Vol] 4.5 g/dL Normal 3.5-5.0 [facility] Comment on above: Performed By: #### L 500.4050, L501.5200, L501.9520, L100.0100, L501.4021 #### [facility] [address] [place], [address] Albumin/Globulin [Mass ratio] 1.7 {ratio} Normal 0.9-2.4 [facility] Comment on above: Performed By: #### L 500.4050, L501.5200, L501.9520, L100.0100, L501.4021 #### [facility] [address] [place], [address] ALK PHOS 74 U/L Normal 40-129 [facility] Comment on above: Performed By: #### L 500.4050, L501.5200, L501.9520, L100.0100, L501.4021 #### [facility] [address] [place], [address] ALT [Catalytic activity/Vol] 24 U/L Normal <=46 [facility] Comment on above: Performed By: #### L 500.4050, L501.5200, L501.9520, L100.0100, L501.4021 #### [facility] [address] [place], [address] AST [Catalytic activity/Vol] 40 U/L High <=37 [facility] Comment on above: Performed By: #### L 500.4050, L501.5200, L501.9520, L100.0100, L501.4021 #### [facility] [address] [place], [address] Bilirubin [Mass/Vol] 0.50 mg/dL Normal 0.00-1.30 [facility] Comment on above: Performed By: #### L 500.4050, L501.5200, L501.9520, L100.0100, L501.4021 #### [facility] [address] [place], [address] BUN/CRE 11.5 RATIO Normal 10-20 [facility] Comment on above: Performed By: #### L 500.4050, L501.5200, L501.9520, L100.0100, L501.4021 #### [facility] [address] [place], [address] Calcium [Mass/Vol] 9.3 mg/dL Normal 7.6-11.0 [facility] Comment on above: Performed By: #### L 500.4050, L501.5200, L501.9520, L100.0100, L501.4021 #### [facility] [address] [place], [address] Chloride [Moles/Vol] 103 mmol/L Normal 98-108 [facility] Comment on above: Performed By: #### L 500.4050, L501.5200, L501.9520, L100.0100, L501.4021 #### [facility] [address] [place], [address] CO2 [Moles/Vol] 23.8 mmol/L Normal 21.0-32.0 [facility] Comment on above: Performed By: #### L 500.4050, L501.5200, L501.9520, L100.0100, L501.4021 #### [facility] [address] [place], [address] Creatinine [Mass/Vol] 1.12 mg/dL Normal 0.70-1.20 [facility] Comment on above: Performed By: #### L 500.4050, L501.5200, L501.9520, L100.0100, L501.4021 #### [facility] [address] [place], [address] ECRCL 108.92 ml/min Normal 50-250 [facility] Comment on above: Performed By: #### L 500.4050, L501.5200, L501.9520, L100.0100, L501.4021 #### [facility] [address] [place], [address] GAP 12 Normal 5-15 [facility] Comment on above: Performed By: #### L 500.4050, L501.5200, L501.9520, L100.0100, L501.4021 #### [facility] [address] [place], [address] GFR/1.73 sq M.predicted among non-blacks MDRD (S/P/Bld) [Vol rate/Area] 86 mL/min/{1.73_m2} Normal >60 [facility] Comment on above: Result Comment: mL/m in/1.73m2 CKD-EPI Creatinine Equation (2020) Performed By: #### L 500.4050, L501.5200, L501.9520, L100.0100, L501.4021 #### [facility] [address] [place], [address] Globulin (S) [Mass/Vol] 2.7 g/dL Normal 2.2-4.2 [facility] Comment on above: Performed By: #### L 500.4050, L501.5200, L501.9520, L100.0100, L501.4021 #### [facility] [address] [place], [address] Glucose [Mass/Vol] 98 mg/dL Normal 70-99 [facility] Comment on above: Performed By: #### L 500.4050, L501.5200, L501.9520, L100.0100, L501.4021 #### [facility] [address] [place], [address] Potassium [Moles/Vol] 3.5 mmol/L Normal 3.3-5.1 [facility] Comment on above: Performed By: #### L 500.4050, L501.5200, L501.9520, L100.0100, L501.4021 #### [facility] [address] [place], [address] Sodium [Moles/Vol] 139 mmol/L Normal 133-145 [facility] Comment on above: Performed By: #### L 500.4050, L501.5200, L501.9520, L100.0100, L501.4021 #### [facility] [address] [place], [address] T PROT 7.2 g/dL Normal 5.9-8.4 [facility] Comment on above: Performed By: #### L 500.4050, L501.5200, L501.9520, L100.0100, L501.4021 #### [facility] [address] [place], [address] Urea nitrogen [Mass/Vol] 13 mg/dL Normal 4-19 [facility] Comment on above: Performed By: #### L 500.4050, L501.5200, L501.9520, L100.0100, L501.4021 #### [facility] [address] [place], [address] Emergency Department Summary on 10-17-2024 Emergency Department Summary [facility] Medical Records Department [address] [place] [address] Emergency Department Summary 10/17/24 MR#: [id number] Acct: [id number] Name: ELKIN VAUGHN Rep #: [id number] : 1985 39 From: Norm Camp DO PCP: Dr. Alan Castillo MD Status:REG ER Location: ED HPI History of Present Illness Chief Complaint: Chest Pain Narrative Narrative: Chief complaint and HPI: Chest pain. 39-year-old male with past medical history of bipolar disorder, anxiety, depression, substance abuse presents for evaluation of chest pain. Patient states that he has recently been in half-way as well as a mental health facility for the past few months. States he got out on Wednesday. States since Wednesday he has been using methamphetamines every day. Admits to decreased p.o. intake and insomnia. Patient states about 25 minutes prior to arrival he began having chest pain. States his body is sore. States prior to this relapse he was clean for 117 days. 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 He denies any fever, chills, shortness of breath, abdominal pain, nausea, vomiting. Review of systems: See HPI Medications: As listed on the chart Allergies: As listed on the chart PFSH: Per chart Vital signs: As listed on the chart. Reviewed. Physical exam: Gen: A O x3, anxious Head: Normocephalic, atraumatic Eyes: No sclera icterus, conjunctiva clear, PERRL, EOMI ENT: Dry mucous membranes Neck: Trachea midline, No JVD CV: Tachycardia, regular rhythm, no murmurs, no peripheral edema Resp: Lungs CTA BL, no w/r/c GI: Abd soft, non-distended, non-tender, no r/r/g Musc: Full ROM, no deformity Skin: Warm, dry Neuro: Alert, oriented, grossly intact, sensation intact Psych: Anxious [facility] Medical History Sleep apnea Severe dextromethorphan use disorder Panic attack Anxiety Depression GERD (gastroesophageal reflux disease) Bipolar disorder Home Medications ???Medication ???Instructions ???Recorded ???Last Taken ???Type hydroxyzine HCl 50 mg tablet 100 mg PO Q6H PRN anxiety 11/24/23 Unknown History mirtazapine 30 mg tablet 30 mg PO QHS 11/24/23 Unknown Hist ory omeprazole 20 mg capsule,delayed 20 mg PO DAILY 11/24/23 Unknown Hi story release prazosin 2 mg capsule 2 mg PO QHS 11/24/23 Unknown Histo ry quetiapine 300 mg tablet 300 mg PO QHS 11/24/23 Unknown His tory risperidone 100 mg/0.28 mL 100 mg subcut QMONTH 11/24/23 Unkn own History subcutaneous extend release susp syringe benztropine 0.5 mg tablet 0.5 mg PO DAILY 10/17/24 Unknown H istory buspirone 15 mg tablet 15 mg PO TID 10/17/24 Unknown Hist ory desvenlafaxine succinate 100 mg 100 mg PO DAILY 10/17/24 Unknown H istory tablet,extended release 24 hr desvenlafaxine succinate 50 mg 50 mg PO DAILY 10/17/24 Unknown Hi story tablet,extended release 24 hr gabapentin 300 mg capsule 300 mg PO Q8H 10/17/24 Unknown His tory guanfacine 2 mg tablet 2 mg PO DAILY 10/17/24 Unknown His tory lurasidone 60 mg tablet 60 mg PO DAILY 10/17/24 Unknown Hi story prazosin 1 mg capsule 2 mg PO Q12H 10/17/24 Unknown Hist ory risperidone 1 mg tablet 1 mg PO BID 10/17/24 Unknown Histo ry Allergy/AdvReac Type Severity Reaction Status Date / Time No Known Allergies Allergy Verified 10/17/24 11:20 Social History household members: none and other details: Patient reports he has children and recently went degeneration so he could Smoking Status: Current every day smoker tobacco type: cigarettes and e-cigarettes EXAM Physical Exam Const Vital Signs: 10/17/24 11:16 10/17/24 11:19 10/17/24 13:21 Temperature 97.7 F L Temperature Source Oral Pulse Rate 102 H 79 Respiratory Rate 24 H 18 Respiratory Effort Normal Non-Labored Respiratory Pattern Tachypnea Blood Pressure 155/98 H Blood Pressure Mean 117 Pulse Ox 98 100 Oxygen Delivery Method Room Air 10/17/24 14:07 10/17/24 15:00 Temperature Temperature Source Pulse Rate 74 80 Respiratory Rate 24 H 20 H Respiratory Effort Respiratory Pattern Blood Pressure Blood Pressure Mean Pulse Ox 98 97 Oxygen Delivery Method MDM MDM MDM Narrative Medical decision making narrative: 39-year-old male with past medical history of bipolar disorder, anxiety, depression, substance abuse presents for evaluation of chest pain. Patient states he has been using methamphetamines since Wednesday. Associated symptom is insomnia, muscle pain, decreased p.o. intake. Patient would like placement for methamphetamine abuse. Differential diagnosis includes but is not limited to methamphetamine intoxication, electr (more content not included)... Normal [facility] Eosinophil percentageOrdered By: Norm Camp on 10-17-2024 Eosinophils/100 WBC (Bld) 0.5 % 0-5 [facility] Erythrocyte distribution wid th ratioOrdered By: Norm Camp on 10-17-2024 Erythrocyte distribution width (RBC) [Ratio] 14.1 % 11.6-14.6 [facility] Erythrocyte distribution wid th standard deviationOrdered By: Norm Sofía Medina on 10-17-2024 Erythrocyte distribution width (RBC) [Ratio] 42.4 fl 35.1-43.9 [facility] Glomerular filtration rate ( GFR) estimation/1.73 sq m using serum, plasma, or whole bOrdered By: Norm Camp on 10-17-2024 GFR/1.73 sq M.predicted among non-blacks MDRD (S/P/Bld) [Vol rate/Area] 86 mL/min/{1.73_m2} >60 [facility] Comment on above: mL/min/1.73m2 CKD-EP I Creatinine Equation (2020) Hematocrit Auto (Bld) [Volum e fraction]Ordered By: Norm Camp on 10-17-2024 Hematocrit (Bld) [Volume fraction] 40.6 % 40-54 [facility] Hemoglobin measurementOrdere d By: Norm Camp on 10-17-2024 Hemoglobin (Bld) [Mass/Vol] 14.4 g/dL 13.0-16.5 [facility] Immature granulocytes/100 WB C Auto (Bld)Ordered By: Norm Camp on 10-17-2024 Immature granulocytes/100 WBC (Bld) 0.400 % 0.0-0.9 [facility] Comment on above: IG% - Immature Granu locytes (promyelocytes, myelocytes and metamyelocytes) > 1% indicates that a LEFT SHIFT is Present. L499.0042on 10-17-2024 Trop T High Sen 8 ng/L Normal <=22 [facility] Comment on above: Performed By: #### L 499.0042 #### [facility] [address] [place], [address] L501.4021on 10-17-2024 Trop T High Sen 12 ng/L Normal <=22 [facility] Comment on above: Performed By: #### L 500.4050, L501.5200, L501.9520, L100.0100, L501.4021 #### [facility] [address] [place], [address] Laboratory - Chemistry and C hemistry - challengeOrdered By: Norm Camp on 10-17-2024 AST [Catalytic activity/Vol] 40 U/L High <38 [facility] MCV (mean corpuscular volume ) determinationOrdered By: Norm Camp on 10-17-2024 MCV (RBC) [Entitic vol] 83.5 fL 80-94 [facility] Magnesiumon 10-17-2024 Magnesium [Mass/Vol] 2.2 mg/dL Normal 1.5-2.2 [facility] Comment on above: Performed By: #### L 500.4050, L501.5200, L501.9520, L100.0100, L501.4021 #### [facility] [address] [place], [place], [id number] Magnesium measurement (mass/ volume)Ordered By: Norm Camp on 10-17-2024 Magnesium (Unsp spec) [Mass/Vol] 2.2 mg/dL 1.5-2.2 [facility] Mean corpuscular hemoglobin (MCH) determinationOrdered By: Norm Camp on 10-17-2024 MCH (RBC) [Entitic mass] 29.6 pg 27.0-32.0 [facility] Mean corpuscular hemoglobin concentration (MCHC) determinationOrdered By: Norm Camp on 10-17-2024 MCHC (RBC) [Mass/Vol] 35.5 g/dL 32-36 [facility] Mean platelet volume determi nationOrdered By: Norm Camp on 10-17-2024 Platelet mean volume (Bld) [Entitic vol] 8.1 fL 6.2-12.0 [facility] Monocyte percentageOrdered B y: Norm Camp on 10-17-2024 Monocytes/100 WBC (Bld) 8.4 % 0-10 [facility] Neutrophil percentageOrdered By: Norm Camp on 10-17-2024 Neutrophils/100 WBC (Bld) 60.4 % 47-70 [facility] No Panel InformationOrdered By: Norm Camp on 10-17-2024 Urine Buprenorphine Qualitative Negative < 200 ng/mL [facility] Urine Oxycodone Screen Negative < 100 ng/mL [facility] Nucleated red blood cell per centageOrdered By: Norm Camp on 10-17-2024 Nucleated RBC/100 WBC (Bld) [Ratio] 0 % 0-5 [facility] Platelet countOrdered By: Steve Camp on 10-17-2024 Platelets (Bld) [#/Vol] 272 10*3/uL 150-450 [facility] Potassium measurement (mass/ volume)Ordered By: Norm Camp on 10-17-2024 Potassium (Unsp spec) [Mass/Vol] 3.5 mmol/L 3.3-5.1 [facility] Quantitative urine opiates m easurementOrdered By: Norm Camp on 10-17-2024 Opiates Ql (U) Negative < 300 ng/mL [facility] RBC Auto (Bld) [#/Vol]Ordere d By: Norm Camp on 10-17-2024 RBC (Bld) [#/Vol] 4.86 10*6/uL 4.6-6.2 [facility] Screening urine fentanyl morenita surementOrdered By: Norm Camp on 10-17-2024 fentaNYL Screen Ql (U) Negative [facility] Serum creatinine measurement (mass/volume)Ordered By: Norm Camp on 10-17-2024 Creatinine [Mass/Vol] 1.12 mg/dL 0.70-1.20 [facility] Serum globulin measurementOr dered By: Norm Camp on 10-17-2024 Globulin (S) [Mass/Vol] 2.7 g/dL 2.2-4.2 [facility] Serum glucose measurement (m ass/volume)Ordered By: Norm Camp on 10-17-2024 Glucose [Mass/Vol] 98 mg/dL 70-99 [facility] Serum or plasma alanine luna otransferase (ALT) measurementOrdered By: Norm Camp on 10-17-2024 ALT [Catalytic activity/Vol] 24 U/L <47 [facility] Serum or plasma albumin natty urement (mass/volume)Ordered By: Norm Medina on 10-17-2024 Albumin [Mass/Vol] 4.5 g/dL 3.5-5.0 [facility] Serum or plasma albumin/glob ulin mass ratioOrdered By: Norm Camp on 10-17-2024 Albumin/Globulin [Mass ratio] 1.7 {ratio} 0.9-2.4 [facility] Serum or plasma alkaline jyotsna sphatase measurementOrdered By: Norm Camp on 10-17-2024 ALP [Catalytic activity/Vol] 74 U/L 40-129 [facility] Serum or plasma calcium natty urement (mass/volume)Ordered By: Norm Medina on 10-17-2024 Calcium [Mass/Vol] 9.3 mg/dL 7.6-11.0 [facility] [facility] Serum or plasma creatine kin ase activityOrdered By: Norm Camp on 10-17-2024 CK [Catalytic activity/Vol] 594 U/L High 24-195 [facility] Serum or plasma urea nitroge n measurement (mass/volume)Ordered By: Norm Camp on 10-17-2024 Urea nitrogen [Mass/Vol] 13 mg/dL 4-19 [facility] Sodium levelOrdered By: Alf Camp on 10-17-2024 Sodium [Moles/Vol] 139 mmol/L 133-145 [facility] TSH DL <= 0.005 mIU/L QnOrde red By: Norm Camp on 10-17-2024 TSH Qn 1.160 uIU/mL 0.300-4.200 [facility] Thyroid Stim Hormone (TSH)on 10-17-2024 TSH 1.160 uIU/mL Normal 0.300-4.200 [facility] Comment on above: Performed By: #### L 500.4050, L501.5200, L501.9520, L100.0100, L501.4021 #### [facility] [address] [place], [address] Total proteinOrdered By: Kelvin Camp on 10-17-2024 Protein [Mass/Vol] 7.2 g/dL 5.9-8.4 [facility] Troponin T.cardiac [Mass/vol ume] in Serum or Plasma by High sensitivity methodOrdered By: Norm Camp on 10-17-2024 Troponin T.cardiac High sensitivity method [Mass/Vol] 8 ng/L <22 [facility] Troponin T.cardiac High sensitivity method [Mass/Vol] 12 ng/L <22 [facility] Urine Drug Screen (VISTA)on 10-17-2024 AMPHETAMINES Positive Normal <1000 ng/mL [facility] Comment on above: Result Comment: If c onfirmation testing is needed, a separate order will be required to send out testing to the reference laboratory. Performed By: #### L 500.4050, L501.5200, L501.9520, L100.0100, L501.4021 #### [facility] [address] [place], [address] BARBITIURATES Negative Normal < 200 ng/mL [facility] Comment on above: Performed By: #### L 500.4050, L501.5200, L501.9520, L100.0100, L501.4021 #### [facility] [address] [place], [address] BENZODIAZIPINE Negative Normal < 200 ng/mL [facility] Comment on above: Performed By: #### L 500.4050, L501.5200, L501.9520, L100.0100, L501.4021 #### [facility] [address] [place], [address] BUP Ur Drug Scr Negative Normal < 200 ng/mL [facility] Comment on above: Performed By: #### L 500.4050, L501.5200, L501.9520, L100.0100, L501.4021 #### [facility] [address] [place], [address] COCAINE Negative Normal < 300 ng/mL [facility] Comment on above: Performed By: #### L 500.4050, L501.5200, L501.9520, L100.0100, L501.4021 #### [facility] [address] [place], [place], [facility] Fentanyl Negative Normal [facility] Comment on above: Performed By: #### L 500.4050, L501.5200, L501.9520, L100.0100, L501.4021 #### [facility] [address] [place], [address] METHADONE Negative Normal < 300 ng/mL [facility] Comment on above: Performed By: #### L 500.4050, L501.5200, L501.9520, L100.0100, L501.4021 #### [facility] [address] [place], [place], [facility] OPIATES Negative Normal < 300 ng/mL [facility] Comment on above: Performed By: #### L 500.4050, L501.5200, L501.9520, L100.0100, L501.4021 #### [facility] [address] [place], [place], [facility] OXYCODONE Negative Normal < 100 ng/mL [facility] Comment on above: Performed By: #### L 500.4050, L501.5200, L501.9520, L100.0100, L501.4021 #### [facility] [address] [place], [address] PCP Negative Normal < 25 ng/mL [facility] Comment on above: Performed By: #### L 500.4050, L501.5200, L501.9520, L100.0100, L501.4021 #### [facility] [address] [place], [place], [address] THC Positive Normal < 50 ng/mL [facility] Comment on above: Result Comment: If c onfirmation testing is needed, a separate order will be required to send out testing to the reference laboratory. Performed By: #### L 500.4050, L501.5200, L501.9520, L100.0100, L501.4021 #### [facility] [address] [place], [address] Urine benzodiazepine levelOr dered By: Norm Camp on 10-17-2024 Benzodiazepines Ql (U) Negative < 200 ng/mL [facility] Urine cocaine levelOrdered B y: Norm Camp on 10-17-2024 Cocaine Ql (U) Negative < 300 ng/mL [facility] Urine mrggq-6-yywwmppuxmgmlh abinol (THC) measurementOrdered By: Norm Medina on 10-17-2024 Cannabinoids Screen Ql (U) Positive < 50 ng/mL [facility] Comment on above: If confirmation test ing is needed, a separate order will be required to send out testing to the reference laboratory. Urine phencyclidine (PCP) de tectionOrdered By: Norm Camp on 10-17-2024 Phencyclidine Ql (U) Negative < 25 ng/mL [facility] White blood cell (WBC) count Ordered By: Norm Camp on 10-17-2024 WBC (Bld) [#/Vol] 7.5 10*3/uL 4.4-11.0 [facility] Amphetamine detection with 1 000 ng/mL as cutoffon 10-12-2024 Amphetamines Screen method >1000 ng/mL Ql (U) Negative < 200 ng/mL [facility] No Panel Informationon 10-12 Urine Buprenorphine Qualitative Negative < 200 ng/mL [facility] Urine Oxycodone Screen Negative < 100 ng/mL [facility] Quantitative urine opiates m easurementon 10-12-2024 Opiates Ql (U) Negative < 300 ng/mL [facility] Screening urine fentanyl morenita surementon 10-12-2024 fentaNYL Screen Ql (U) Negative [facility] Urine Drug Screen (VISTA)on 10-12-2024 AMPHETAMINES Negative Normal <1000 ng/mL [facility] Comment on above: Order Comment: UNK Result Comment: UTO Performed By: #### L 3410.9992, L505.5000 #### [facility] [address] [facility] [address] BARBITIURATES Negative Normal < 200 ng/mL [facility] Comment on above: Order Comment: UNK Result Comment: UTO Performed By: #### L 3410.9992, L505.5000 #### [facility] [address] [facility] [address] BENZODIAZIPINE Negative Normal < 200 ng/mL [facility] Comment on above: Order Comment: UNK Result Comment: UTO Performed By: #### L 3410.9992, L505.5000 #### [facility] [address] [facility] [address] BUP Ur Drug Scr Negative Normal < 200 ng/mL [facility] Comment on above: Order Comment: UNK Result Comment: UTO Performed By: #### L 3410.9992, L505.5000 #### [facility] [address] [facility] [address] COCAINE Negative Normal < 300 ng/mL [facility] Comment on above: Order Comment: UNK Result Comment: UTO Performed By: #### L 3410.9992, L505.5000 #### [facility] [address] [facility] [address] Fentanyl Negative Normal [facility] Comment on above: Order Comment: UNK Result Comment: UTO Performed By: #### L 3410.9992, L505.5000 #### [facility] [address] [place], [address] METHADONE Negative Normal < 300 ng/mL [facility] Comment on above: Order Comment: UNK Result Comment: UTO Performed By: #### L 3410.9992, L505.5000 #### [facility] [address] [place], [address] OPIATES Negative Normal < 300 ng/mL [facility] Comment on above: Order Comment: UNK Result Comment: UTO Performed By: #### L 3410.9992, L505.5000 #### [facility] [address] [place], [address] OXYCODONE Negative Normal < 100 ng/mL [facility] Comment on above: Order Comment: UNK Result Comment: UTO Performed By: #### L 3410.9992, L505.5000 #### [facility] [address] [place], [address] PCP Negative Normal < 25 ng/mL [facility] Comment on above: Order Comment: UNK Result Comment: UTO Performed By: #### L 3410.9992, L505.5000 #### [facility] [address] [place], [address] THC Negative Normal < 50 ng/mL [facility] Comment on above: Order Comment: UNK Result Comment: UTO Performed By: #### L 3410.9992, L505.5000 #### [facility] [address] [place], [address] Urine benzodiazepine levelon 10-12-2024 Benzodiazepines Ql (U) Negative < 200 ng/mL [facility] Urine cocaine levelon 2024 Cocaine Ql (U) Negative < 300 ng/mL [facility] Urine qzntp-2-jeetgjlmlygfoe abinol (THC) measurementon 10-12-2024 Cannabinoids Screen Ql (U) Negative < 50 ng/mL [facility] Urine phencyclidine (PCP) de tectionon 10-12-2024 Phencyclidine Ql (U) Negative < 25 ng/mL [facility] CNPNon 08-10-2024 CNPN Telephone (FAMPWS) ELKIN VAUGHN ([id number]) 1985 M T Date Time Provider Department 08/10/24 [facility] During your visit today, we recorded the following information about you: Peg Santos RN 08/10/2024 2:47 PM Signed Ashley with [employer] calls to let provider know that patient's health risk assessment and care plan is available in the provider portal. Also offering for provider to attend care plan meeting and would need two weeks notice if wants to attend. Requesting call back at [phone] if want something set up. Patient is past due for OV. Unable to leave a message on [employer]. DEVON Garcia Mark D, MD 08/10/2024 4:52 PM Signed Noted Alan Castillo MD Allergies As of Date: 08/10/2024 (No Known Allergies) Date Reviewed: 03/29/2024 Reviewed by: Josep Blount RN - Fully Assessed Reason for Visit: Patient Update [1234] Prescriptions as of 08/10/2024 - clonazePAM (KLONOPIN) 0.5 mg tablet - gabapentin (NEURONTIN) 600 mg tablet Take 1 tablet by mouth three times a day. - omeprazole (PRILOSEC) 20 mg capsule Take 1 capsule by mouth two times a day. - famotidine (PEPCID) 20 mg tablet Take 1 tablet by mouth two times a day as needed (acid reflux). - Mirtazapine 45 mg disintegrating tablet - prazosin (MINIPRESS) 2 mg cap Take 2 mg by mouth once daily. 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 The legal definition of intoxication varies according to local law. Performed By: #### L 500.4050, L501.5200, L501.9520, L100.0100, L501.4021 #### [facility] [address] [place] [address]. [place], [address] Amphetamines Screen method > 1000 ng/mL Ql (U)Ordered By: Javi Whitehead on 06-16-2024 Amphetamines Ql (U) Positive <1000 ng/mL [facility] Comment on above: If confirmation test ing is needed, a separate order will be required to send out testing to the reference laboratory. Urine Barbiturates Screen Negative < 200 ng/mL [facility] Anion gap in Serum or Plasma Ordered By: Javi Whitehead on 06-16-2024 Anion gap [Moles/Vol] 13 mmol/L 5-15 [facility] BUN/creatinine ratioOrdered By: Javi Whitehead on 06-16-2024 Urea nitrogen/Creatinine [Mass ratio] 19.4 mg/mg - [facility] Basic Metabolic Profile (BMP )on 06-16-2024 BUN/CRE 19.4 RATIO Normal - [facility] Comment on above: Performed By: #### L 500.4050, L501.5200, L501.9520, L100.0100, L501.4021 #### [facility] [address] [place], [address] Calcium [Mass/Vol] 9.5 mg/dL Normal 7.6-11.0 [facility] Comment on above: Performed By: #### L 500.4050, L501.5200, L501.9520, L100.0100, L501.4021 #### [facility] [address] [place], [address] Chloride [Moles/Vol] 102 mmol/L Normal 98-108 [facility] Comment on above: Performed By: #### L 500.4050, L501.5200, L501.9520, L100.0100, L501.4021 #### [facility] [address] [place], [address] CO2 [Moles/Vol] 22.6 mmol/L Normal 21.0-32.0 [facility] Comment on above: Performed By: #### L 500.4050, L501.5200, L501.9520, L100.0100, L501.4021 #### [facility] [address] [place], [address] Creatinine [Mass/Vol] 1.21 mg/dL High 0.70-1.20 [facility] Comment on above: Performed By: #### L 500.4050, L501.5200, L501.9520, L100.0100, L501.4021 #### [facility] [address] [place], [address] ECRCL 95.16 ml/min Normal 50-250 [facility] Comment on above: Performed By: #### L 500.4050, L501.5200, L501.9520, L100.0100, L501.4021 #### [facility] [address] [place], [address] GAP 13 Normal 5-15 [facility] Comment on above: Performed By: #### L 500.4050, L501.5200, L501.9520, L100.0100, L501.4021 #### [facility] [address] [place], [address] GFR/1.73 sq M.predicted among non-blacks MDRD (S/P/Bld) [Vol rate/Area] 78 mL/min/{1.73_m2} Normal >60 [facility] Comment on above: Result Comment: mL/m in/1.73m2 CKD-EPI Creatinine Equation (2020) Performed By: #### L 500.4050, L501.5200, L501.9520, L100.0100, L501.4021 #### [facility] [address] [place], [address] Glucose [Mass/Vol] 112 mg/dL High 70-99 [facility] Comment on above: Performed By: #### L 500.4050, L501.5200, L501.9520, L100.0100, L501.4021 #### [facility] [address] [place], [address] Potassium [Moles/Vol] 4.5 mmol/L Normal 3.3-5.1 [facility] Comment on above: Performed By: #### L 500.4050, L501.5200, L501.9520, L100.0100, L501.4021 #### [facility] [address] [place], [address] Sodium [Moles/Vol] 138 mmol/L Normal 133-145 [facility] Comment on above: Performed By: #### L 500.4050, L501.5200, L501.9520, L100.0100, L501.4021 #### [facility] [address] [place], [address] Urea nitrogen [Mass/Vol] 24 mg/dL High 4-19 [facility] Comment on above: Performed By: #### L 500.4050, L501.5200, L501.9520, L100.0100, L501.4021 #### [facility] [address] [place], [address] Basophil percentageOrdered B y: Javi Whitehead on 06-16-2024 Basophils/100 WBC (Bld) 0.3 % 0-1 [facility] CBC W/Diff, Automatedon 06-03 Absolute Lymph 2.41 X10 3/uL Normal 0.83-4.51 [facility] Comment on above: Performed By: #### L 500.4050, L501.5200, L501.9520, L100.0100, L501.4021 #### [facility] [address] [place], [address] Absolute Neut 5.4 X10 3/uL Normal 2.0-7.7 [facility] Comment on above: Performed By: #### L 500.4050, L501.5200, L501.9520, L100.0100, L501.4021 #### [facility] [address] [place], [address] Basophils/100 WBC (Bld) 0.3 % Normal 0-1 [facility] Comment on above: Performed By: #### L 500.4050, L501.5200, L501.9520, L100.0100, L501.4021 #### [facility] [address] [place], [address] Eosinophils/100 WBC (Bld) 1.6 % Normal 0-5 [facility] Comment on above: Performed By: #### L 500.4050, L501.5200, L501.9520, L100.0100, L501.4021 #### [facility] [address] [place], [address] Erythrocyte distribution width (RBC) [Ratio] 14.0 % Normal 11.6-14.6 [facility] Comment on above: Performed By: #### L 500.4050, L501.5200, L501.9520, L100.0100, L501.4021 #### [facility] [address] [place], [address] Hematocrit (Bld) [Volume fraction] 41.3 % Normal 40-54 [facility] Comment on above: Performed By: #### L 500.4050, L501.5200, L501.9520, L100.0100, L501.4021 #### [facility] [address] [place], [address] Hemoglobin (Bld) [Mass/Vol] 14.3 g/dL Normal 13.0-16.5 [facility] Comment on above: Performed By: #### L 500.4050, L501.5200, L501.9520, L100.0100, L501.4021 #### [facility] [address] [place], [address] IG% 0.600 Normal 0.0-0.9 [facility] Comment on above: Result Comment: IG% - Immature Granulocytes (promyelocytes, myelocytes and metamyelocytes) > 1% indicates that a LEFT SHIFT is Present. Performed By: #### L 500.4050, L501.5200, L501.9520, L100.0100, L501.4021 #### [facility] [address] [place], [address] Lymphocytes/100 WBC (Bld) 27.9 % Normal 19-41 [facility] Comment on above: Performed By: #### L 500.4050, L501.5200, L501.9520, L100.0100, L501.4021 #### [facility] [address] [place], [address] MCH (RBC) [Entitic mass] 31.0 pg Normal 27.0-32.0 [facility] Comment on above: Performed By: #### L 500.4050, L501.5200, L501.9520, L100.0100, L501.4021 #### [facility] [address] [place], [address] MCHC (RBC) [Mass/Vol] 34.6 g/dL Normal 32-36 [facility] Comment on above: Performed By: #### L 500.4050, L501.5200, L501.9520, L100.0100, L501.4021 #### [facility] [address] [place], [address] MCV (RBC) [Entitic vol] 89.4 fL Normal 80-94 [facility] Comment on above: Performed By: #### L 500.4050, L501.5200, L501.9520, L100.0100, L501.4021 #### [facility] [address] [place], [address] Monocytes/100 WBC (Bld) 6.5 % Normal 0-10 [facility] Comment on above: Performed By: #### L 500.4050, L501.5200, L501.9520, L100.0100, L501.4021 #### [facility] [address] [place], [address] Neutrophils/100 WBC (Bld) 63.1 % Normal 47-70 [facility] Comment on above: Performed By: #### L 500.4050, L501.5200, L501.9520, L100.0100, L501.4021 #### [facility] [address] [place], [address] Nucleated RBC (Bld) [#/Vol] 0 10*3/uL Normal 0-5 [facility] Comment on above: Performed By: #### L 500.4050, L501.5200, L501.9520, L100.0100, L501.4021 #### [facility] [address] [place], [address] Platelet mean volume (Bld) [Entitic vol] 8.4 fL Normal 6.2-12.0 [facility] Comment on above: Performed By: #### L 500.4050, L501.5200, L501.9520, L100.0100, L501.4021 #### [facility] [address] [place], [address] Platelets (Bld) [#/Vol] 298 10*3/uL Normal 150-450 [facility] Comment on above: Performed By: #### L 500.4050, L501.5200, L501.9520, L100.0100, L501.4021 #### [facility] [address] [place], [address] RBC (Bld) [#/Vol] 4.62 10*6/uL Normal 4.6-6.2 [facility] Comment on above: Performed By: #### L 500.4050, L501.5200, L501.9520, L100.0100, L501.4021 #### [facility] [address] [place], [address] RDW SD 44.7 fl High 35.1-43.9 [facility] Comment on above: Performed By: #### L 500.4050, L501.5200, L501.9520, L100.0100, L501.4021 #### [facility] [address] [place], [address] WBC (Bld) [#/Vol] 8.6 10*3/uL Normal 4.4-11.0 [facility] Comment on above: Performed By: #### L 500.4050, L501.5200, L501.9520, L100.0100, L501.4021 #### [facility] [address] [place], [address] Carbon dioxide, total [Moles /volume] in Central venous bloodOrdered By: Javi Whitehead on 06-16-2024 CO2 [Moles/Vol] 22.6 mmol/L 21.0-32.0 [facility] Chloride assayOrdered By: Jaime Whitehead on 06-16-2024 Chloride [Moles/Vol] 102 mmol/L 98-108 [facility] Emergency Department Summary on 06-16-2024 Emergency Department Summary [facility] Medical Records Department [address] [place] [address] Emergency Department Summary 06/16/24 MR#: [id number] Acct: [id number] Name: ELKIN VAUGHN Rep #: [id number] : 1985 39 From: Javi Whitehead MD PCP: Dr. Alan Castillo MD Status:REG ER Location: ED ADDENDUM by Dr. Javi Whitehead MD on 06/16/24 at 2219 I spoke to the patient's legal guardian. She is court appointed. The long term will not take him back now. So he could be a crisis evaluation to try to get him admitted to a psychiatric locked unit due to his underlying psychiatric illness and his history of drug abuse. 06/16/242218 Cosigner Signature (if applicable): cc: Dr. Alan Castillo MD * Signed HPI HPI - Psych History of Present Illness Chief Complaint: Suicidal Informant: patient Onset/Context/Timing Onset: Today Current Severity: Mild Maximum Severity: Mild Associated Symptoms Specific plan (suicidal thought): Patient denies actually wanting to kill himself. Denies a specific plan. Narrative Narrative: 39-year-old male history of bipolar, anxiety and currently residing in a long term. Thought today was suicidal so the same and to be evaluated. They need to medically cleared and then I think they are going to send him to a psychiatric facility but they are going to do it from their long term. Patient states he took 12-16 dextromethorphan pills about 4 to 5 hours ago. He has a history of that. Denies any other attempts. Prior similar symptoms: Yes Recent Illness/Hospitalization : Yes [facility] Medical History Sleep apnea Severe dextromethorphan use disorder Panic attack Anxiety Depression GERD (gastroesophageal reflux disease) Bipolar disorder Home Medications ???Medication ???Instructions ???Recorded ???Last Taken ???Type gabapentin 600 mg tablet 600 mg PO TID 30 days #90 tabs 09/26 Unknown Rx atomoxetine 40 mg capsule 40 mg PO DAILY 11/24/23 Unknown Hi story duloxetine 60 mg capsule,delayed 60 mg PO DAILY 11/24/23 Unknown Hi story release famotidine 20 mg tablet 20 mg PO DAILY 11/24/23 Unknown Hi story hydroxyzine HCl 50 mg tablet 100 mg PO Q6H PRN anxiety 11/24/23 Unknown History mirtazapine 30 mg tablet 30 mg PO QHS 11/24/23 Unknown Hist ory olanzapine 10 mg tablet 10 mg PO QHS 11/24/23 Unknown Hist ory olanzapine 5 mg tablet 5 mg PO DAILY 11/24/23 Unknown His tory omeprazole 20 mg capsule,delayed 20 mg PO DAILY 11/24/23 Unknown Hi story release pramipexole 0.25 mg tablet 0.25 mg PO DAILY 11/24/23 Unknown History prazosin 2 mg capsule 2 mg PO QHS 11/24/23 Unknown Histo ry quetiapine 25 mg tablet 25 mg PO BID 11/24/23 Unknown Hist ory quetiapine 300 mg tablet 300 mg PO QHS 11/24/23 Unknown His tory risperidone 100 mg/0.28 mL 100 mg subcut QMONTH 11/24/23 Unkn own History subcutaneous extend release susp syringe trazodone 50 mg tablet 50 mg PO QHS PRN sleep 11/24/23 Un known History lorazepam 0.5 mg tablet (Ativan) 0.5 mg PO BID PRN anxiety #5 tabs 03/22/24 Unknown Rx Allergy/AdvReac Type Severity Reaction Status Date / Time No Known Allergies Allergy Verified 06/16/24 19:57 Social History household members: none and other details: Patient reports he has children and recently went degeneration so he could Smoking Status: Current every day smoker tobacco type: cigarettes and e-cigarettes ROS ROS ED ROS Narrative Denies recent illness. Constitutional Constitutional ED: Denies chills or fever(s) Eyes Eyes: Denies blurry vision ENT ENT ED: Denies ear pain Cardiovascular Cardiovascular: Denies chest pain or palpitations Respiratory/Chest Respiratory/Chest: Denies cough or dyspnea Gastrointestinal Gastrointestinal: Denies abdominal pain Genitourinary Genitourinary ED: Denies dysuria or hematuria Musculoskeletal Musculoskeletal: Denies arthralgias or back pain Integumentary Denies abscess or Abrasions Neurologic Neurologic: Denies headache(s) Psychiatric Psychiatric: Reports anxiety Endocrine Endocrinology: Denies polydipsia, polyphagia or polyuria Hematologic/Lymphatic Hematologic/Lymphatic: Denies easy bleeding, easy bruising or lymphadenopathy Allergic/Immunologic Allergic/Immunologic ED: Denies mouth swelling, tongue swelling or urticaria EXAM Physical Exam Const Vital Signs: 06/16/24 19:57 Temperature 99.6 F H Temperature Source Oral Pulse Rate 125 H Respiratory Rate 19 H Blood Pressure 137/90 H Blood Pressure Mean 105 Pulse Ox 96 Oxygen Delivery Method Room Air Positive well nourished and well developed; Negative for cachectic, contractures or unkempt General A (more content not included)... Normal [facility] Eosinophil percentageOrdered By: Javi Whitehead on 06-16-2024 Eosinophils/100 WBC (Bld) 1.6 % 0-5 [facility] Erythrocyte distribution wid th ratioOrdered By: Javi Whitehead on 06-16-2024 Erythrocyte distribution width (RBC) [Ratio] 14.0 % 11.6-14.6 [facility] Erythrocyte distribution wid th standard deviationOrdered By: Javi Whitehead on 06-16-2024 Erythrocyte distribution width (RBC) [Entitic vol] 44.7 fL High 35.1-43.9 [facility] Estimation of creatinine markos aranceOrdered By: Javi Whitehead on 06-16-2024 Estimated Creatinine Clearance Calc 95.16 ml/min 50-250 [facility] Ethanol [Mass/Vol]Ordered By : Javi Whitehead on 06-16-2024 Ethyl Alcohol Level < 10.1 mg/dL <10.1 [facility] Comment on above: This test is for med ical purposes only. The legal definition of intoxication varies according to local law. GFR/1.73 sq M.predicted madeline g non-blacks MDRD (S/P/Bld) [Vol rate/Area]Ordered By: Javi Whitehead on 06-16-2024 Estimated GFR (MDRD) Non-Af Amer 78 >60 [facility] Comment on above: mL/min/1.73m2 CKD-EP I Creatinine Equation (2020) Hematocrit Auto (Bld) [Volum e fraction]Ordered By: Javi Whitehead on 06-16-2024 Hematocrit (Bld) [Volume fraction] 41.3 % 40-54 [facility] Hemoglobin measurementOrdere d By: Javi Whitehead on 06-16-2024 Hemoglobin (Bld) [Mass/Vol] 14.3 g/dL 13.0-16.5 [facility] Immature granulocytes/100 WB C Auto (Bld)Ordered By: Javi Whitehead on 06-16-2024 Immature granulocytes/100 WBC (Bld) 0.600 % 0.0-0.9 [facility] Comment on above: IG% - Immature Granu locytes (promyelocytes, myelocytes and metamyelocytes) > 1% indicates that a LEFT SHIFT is Present. Lymphocytes Auto (Unsp spec) [#/Vol]Ordered By: Javi Whitehead on 06-16-2024 Lymphocytes (Bld) [#/Vol] 2.41 10*3/uL 0.83-4.51 [facility] Lymphocytes/100 WBC Auto (Un sp spec)Ordered By: Javi Whitehead on 06-16-2024 Lymphocytes/100 WBC (Bld) 27.9 % 19-41 [facility] MCV (mean corpuscular volume ) determinationOrdered By: Javi Whitehead on 06-16-2024 MCV (RBC) [Entitic vol] 89.4 fL 80-94 [facility] Mean corpuscular hemoglobin (MCH) determinationOrdered By: Javi Whitehead on 06-16-2024 MCH (RBC) [Entitic mass] 31.0 pg 27.0-32.0 [facility] Mean corpuscular hemoglobin concentration (MCHC) determinationOrdered By: Javi Whitehead on 06-16-2024 MCHC (RBC) [Mass/Vol] 34.6 g/dL 32-36 [facility] Mean platelet volume determi nationOrdered By: Javi Whitehead on 06-16-2024 Platelet mean volume (Bld) [Entitic vol] 8.4 fL 6.2-12.0 [facility] Methadone, urineOrdered By: Javi Whitehead on 06-16-2024 Urine Methadone Screen Negative < 300 ng/mL [facility] Monocyte percentageOrdered B y: Javi Whitehead on 06-16-2024 Monocytes/100 WBC (Bld) 6.5 % 0-10 [facility] Neutrophil percentageOrdered By: Javi Whitehead on 06-16-2024 Neutrophils/100 WBC (Bld) 63.1 % 47-70 [facility] No Panel InformationOrdered By: Javi Whitehead on 06-16-2024 Urine Buprenorphine Qualitative Negative < 200 ng/mL [facility] Urine Oxycodone Screen Negative < 100 ng/mL [facility] Nucleated red blood cell per centageOrdered By: Javi Whitehead on 06-16-2024 Nucleated RBC/100 WBC (Bld) [Ratio] 0 % 0-5 [facility] Platelet countOrdered By: Jaime Whitehead on 06-16-2024 Platelets (Bld) [#/Vol] 298 10*3/uL 150-450 [facility] Potassium (Unsp spec) [Mass/ Vol]Ordered By: Javi Whitehead on 06-16-2024 Potassium [Moles/Vol] 4.5 mmol/L 3.3-5.1 [facility] Quantitative urine opiates m easurementOrdered By: Javi Whitehead on 06-16-2024 Opiates Ql (U) Negative < 300 ng/mL [facility] RBC Auto (Bld) [#/Vol]Ordere d By: Javi Whitehead on 06-16-2024 RBC (Bld) [#/Vol] 4.62 10*6/uL 4.6-6.2 [facility] Serum creatinine measurement (mass/volume)Ordered By: Javi Whitehead on 06-16-2024 Creatinine [Mass/Vol] 1.21 mg/dL High 0.70-1.20 [facility] Serum glucose measurement (m ass/volume)Ordered By: Javi Whitehead on 06-16-2024 Glucose [Mass/Vol] 112 mg/dL High 70-99 [facility] Serum or plasma calcium natty urement (mass/volume)Ordered By: Javi Whitehead on 06-16-2024 Calcium [Mass/Vol] 9.5 mg/dL 7.6-11.0 [facility] Serum or plasma urea nitroge n measurement (mass/volume)Ordered By: Javi Whitehead on 06-16-2024 Urea nitrogen [Mass/Vol] 24 mg/dL High 4-19 [facility] Sodium levelOrdered By: Javi Whitehead on 06-16-2024 Sodium [Moles/Vol] 138 mmol/L 133-145 [facility] Urine Drug Screen (VISTA)on 06-16-2024 AMPHETAMINES Positive Normal <1000 ng/mL [facility] Comment on above: Result Comment: If c onfirmation testing is needed, a separate order will be required to send out testing to the reference laboratory. Performed By: #### L 500.4050, L501.5200, L501.9520, L100.0100, L501.4021 #### [facility] [address] [place], [address] BARBITIURATES Negative Normal < 200 ng/mL [facility] Comment on above: Performed By: #### L 500.4050, L501.5200, L501.9520, L100.0100, L501.4021 #### [facility] [address] [place], [address] BENZODIAZIPINE Negative Normal < 200 ng/mL [facility] Comment on above: Performed By: #### L 500.4050, L501.5200, L501.9520, L100.0100, L501.4021 #### [facility] [address] [place], [address] BUP Ur Drug Scr Negative Normal < 200 ng/mL [facility] Comment on above: Performed By: #### L 500.4050, L501.5200, L501.9520, L100.0100, L501.4021 #### [facility] [address] [place], [address] COCAINE Negative Normal < 300 ng/mL [facility] Comment on above: Performed By: #### L 500.4050, L501.5200, L501.9520, L100.0100, L501.4021 #### [facility] [address] [place], [address] Fentanyl Negative Normal [facility] Comment on above: Performed By: #### L 500.4050, L501.5200, L501.9520, L100.0100, L501.4021 #### [facility] [address] [place], [address] METHADONE Negative Normal < 300 ng/mL [facility] Comment on above: Performed By: #### L 500.4050, L501.5200, L501.9520, L100.0100, L501.4021 #### [facility] [address] [place], [address] OPIATES Negative Normal < 300 ng/mL [facility] Comment on above: Performed By: #### L 500.4050, L501.5200, L501.9520, L100.0100, L501.4021 #### [facility] [address] [place], [address] OXYCODONE Negative Normal < 100 ng/mL [facility] Comment on above: Performed By: #### L 500.4050, L501.5200, L501.9520, L100.0100, L501.4021 #### [facility] [address] [place], [address] PCP Negative Normal < 25 ng/mL [facility] Comment on above: Performed By: #### L 500.4050, L501.5200, L501.9520, L100.0100, L501.4021 #### [facility] [address] [place], [address] THC Negative Normal < 50 ng/mL [facility] Comment on above: Performed By: #### L 500.4050, L501.5200, L501.9520, L100.0100, L501.4021 #### [facility] [address] [place], [address] Urine benzodiazepine levelOr dered By: Javi Whitehead on 06-16-2024 Benzodiazepines Ql (U) Negative < 200 ng/mL [facility] Urine cocaine levelOrdered B y: Javi Whitehead on 06-16-2024 Cocaine Ql (U) Negative < 300 ng/mL [facility] Urine [id number]-[id number] abinol (THC) measurementOrdered By: Javi Whitehead on 06-16-2024 Cannabinoids Screen Ql (U) Negative < 50 ng/mL [facility] Urine phencyclidine (PCP) de tectionOrdered By: Javi Whitehead on 06-16-2024 Phencyclidine Ql (U) Negative < 25 ng/mL [facility] White blood cell (WBC) count Ordered By: Javi Whitehead on 06-16-2024 WBC (Bld) [#/Vol] 8.6 10*3/uL 4.4-11.0 [facility] fentaNYL Screen Ql (U)Ordere d By: Javi Whitehead on 06-16-2024 Urine Fentanyl Screen Negative [facility] [id number] 06-09-2024 [id number] Call placed to [facility], stated to be able to accept patient and someone from the facility will be picking up between 5:30-6pm. Contact is Darrick [phone]. Provided Darrick with phone number to unit to call when he arrives. Facility asked for 30day supply of medications at la. Injection to be sent to [facility] in [place]. Discussed with legal guardian, which she was agreeable to. RN and patient informed. Patient agreeable to la plan and is aware of follow up at [facility]. Denied SI/HI/AVH at time of dc. [facility] [phone] Patient stated [facility] is able to accept him today for their 6 month program. Stated they would like to talk with SW. Attempted to call facility ([phone]), left VM. Also attempted to call patient's guardian to discuss this. Vm left for her as well. [facility] [id number] Email received from [facility] stating to be unable to accept patient due to insurance. [facility] [phone] Call placed to legal guardian, stating to want patient to go to [facility], which is a 12 month program ( ). Informed patient of this. Stated he would go if able to smoke cigarettes. VM left and email sent inquiring if cigarettes are allowed. Patient also stated that he is to call [facility] back today at 11:30am. SW following. [facility] [phone] Discussed residentia l options with patient. Denied [facility] due to hx of going to facility and did not have a positive experience. Denied [facility] due to it being a 9 month program. Agreeable to [facility] and [facility]. Patient reported to have called [facility] 06/08/24, awaiting for return call. Phone numbers provided to patient to call [facility]. [facility] [phone] Provided patient wit h phone number to [facility] ([phone]) to see if able to take patient. Awaiting response from [facility], referral sent 06/08/24. Patient stated to prefer [facility] but agreed to call [facility] as backup. [facility] Nursing Noteon 06-09-2024 Nursing Note Pt discharged to [facility]. Pt picked up by rehab staff. Discharge medications, appointments, and instructions reviewed with pt. Pt verbalizes understanding. Pt signed discharge paperwork. Pt denies SI/HI and is escorted to intake for belongings. [facility] Nursing Note Asked pt if I could complete blood draw, pt refused at this time. [facility] Nursing Note Pt in common area on the phone when approached by RN. Pt denies SI/HI/AVH. Pt called [facility] this morning and was told to call back at 1130. Pt was compliant with scheduled morning medications. Pt is focused on discharge. Pt denies any complaints at this time. Pt encouraged to seek staff with any questions/concerns/need s. Will continue to monitor pt for safety on unit. [facility] 30on 06-08-2024 30 Problem: Sensory Perceptual Alteration as Evidenced by Goal: Cooperates with admission process Outcome: Progressing Problem: Sensory Perceptual Alteration as Evidenced by Goal: Patient/Family verbalizes awareness of resources Outcome: Progressing Problem: Potential for Harm to Self or Others Goal: Identifies deescalation techniques Outcome: Progressing Problem: Educational/Scholastic Disruption Goal: Meets educational requirements during hospitalization Outcome: Progressing [facility] [id number] 06-08-2024 [id number] Received call from Brandee at [facility]. Pt has been declined there as he has been there in the past. Pt has also been declined for [facility], and [facility]. Pt's guardian, Clinton Markhammili here to see pt today. Pt and guardian able to complete intake assessment at [facility] [phone]. SW spoke with John at [facility], now named [facility] [place]. He reports that pt should continue to try other options, but if pt does not have anywhere to go, then he can call back tomorrow to speak with John about possible admission. John provided his phone number for SW to call [phone]. CHRISSIE also made referral via email to [facility]. Await their assessment and if they could accept pt. [facility] [id number] [facility]. Per office patient has no show approximately x3 and now has been put on standby list for x1year. Pt would have to call in daily to see if there is an opening. Unable to make an injection appointment for 06/13/24 for pt's Invega Sustenna 234mg Injection. Will inform treatment team and will email guardian with above information to decide next steps. [facility] Nursing Noteon 06-08-2024 Nursing Note Pt withdrawn to room this shift. Pt refused PM vitals. Pt interacts minimally with staff, denies thoughts of SI/HI/AV hallucinations. Pt compliant with scheduled HS medications, denies other needs and is encouraged to seek staff if any problems or concerns arise. Safety checks maintained per unit policy. [facility] Nursing Note Pt visualized on [facility] ieu intermittently throughout the shift. Anxious at times but is otherwise in no acute distress and is able to make needs known. Patient encouraged to seek out staff with questions or concerns. Plan of care ongoing. [facility] Nursing Note Patient met in room for morning assessment-somewhat anxious, but pleasant upon approach. Hoping for discharge soon. Guardian visited patient today-pending approval for discharge to facility. Affect is flat. Speech is pressured. Eye contact is fair. Gait is steady. Patient reports good appetite and sleep. Encouragement with ADLs provided. Mostly continent of bowel and bladder-episodes of incontinence noted at times. Minimally interactive-patient mostly withdrawn to himself. Offers brief, one word responses to assessment questions. Medication compliant. Denies any pain. Denies thoughts of harm to self or others. No delusions voiced/noted. Appears preoccupied/internally stimulated-seen talking to unseen others in the common area, but denies A/V hallucinations. Patient able to make needs known, and encouraged to do so. No s/s of physical concerns noted. Safety maintained. [facility] Progress Noteon 06-08-2024 Progress Note Nutrition rescreen completed. Chart reviewed. Patient to be monitored and followed by the diet color laboratory technician. [facility] 30on 06-07-2024 Problem: Sensory Perceptual Alteration as Evidenced by Goal: Patient/Family participate in treatment and discharge plans 06/07/2024 213 by Kaela Ordoñez RN Outcome: Progressing 06/07/20242133 by Kaela Ordoñez RN Outcome: Progressing [facility] 30 Problem: Sensory Perceptual Alteration as Evidenced by Goal: Cooperates with admission process 06/07/2024 1058 by Luz Marina Amado RN Outcome: Progressing 06/07/2024 1057 by Luz Marina Amado RN Outcome: Progressing Goal: Patient/Family participate in treatment and discharge plans 06/07/2024 1058 by Luz Marina Amado RN Outcome: Progressing 06/07/2024 105 by Luz Marina Amado RN Outcome: Progressing Goal: Patient/Family verbalizes awareness of resources 06/07/2024 1058 by Luz Marina Amado RN Outcome: Progressing 06/07/2024 1057 by Luz Marina Amado RN Outcome: Progressing Goal: Discusses signs/symptoms of illness/treatment options 06/07/2024 1058 by Luz Marina Amado RN Outcome: Progressing 06/07/2024 1057 by Luz Marina Amado RN Outcome: Progressing Problem: Potential for Harm to Self or Others Goal: Identifies deescalation techniques 06/07/2024 1058 by Luz Marina Amado RN Outcome: Progressing 06/07/2024 1057 by Luz Marina Amado RN Outcome: Progressing Problem: Educational/Scholastic Disruption Goal: Meets educational requirements during hospitalization 06/07/2024 1058 by Luz Marina Amado RN Outcome: Progressing 06/07/2024 1057 by Luz Marina Amado RN Outcome: Progressing [facility] 30 Problem: Sensory Perceptual Alteration as Evidenced by Goal: Cooperates with admission process Outcome: Progressing Goal: Patient/Family participate in treatment and discharge plans Outcome: Progressing Goal: Patient/Family verbalizes awareness of resources Outcome: Progressing Goal: Discusses signs/symptoms of illness/treatment options Outcome: Progressing Problem: Potential for Harm to Self or Others Goal: Identifies deescalation techniques Outcome: Progressing Problem: Educational/Scholastic Disruption Goal: Meets educational requirements during hospitalization Outcome: Progressing [facility] [id number] 06-07-2024 [id number] SW coverage for neena y. Call received from Kristie with [employer]. She reports that pt has [place] and Medicaid, however his Medicaid only pays for his insurance payments (QMB.) Therefore pt would have no insurance coverage at [facility]. CHRISSIE called and spoke with pt's guardian, Annmarie. Updated her that pt has been declined at [facility] as his Medicaid only covers his insurance payments. She requests SW make various referrals including [facility], [facility], [facility], [facility], [facility], and [facility] as well as any other program that would likely directly admit pt from hospital. CHRISSIE will work on making referrals to various agencies. [facility] [phone] Left vm for [facility] office regarding medication list and received call back from [facility] at [facility]. Per [facility] pt received Invega Sustenna 234mg on 05/16/24. Attempted to ask if he had anymore injections in half-way and call was cut off due to an emergency. Will attempt to call back later. Medical at half-way direct line # [phone]. [facility] Nursing Noteon 06-07-2024 Nursing Note Pt withdrawn to this shift. Pt blunt/flat, irritable throughout interaction. Pt denies thoughts of SI/HI/AV hallucinations. Pt compliant with scheduled HS medications. Pt requesting dinner tray he missed dinner, ate 100% of meal and was given snack and drink. Pt demanding and intrusive at times. Pt expressed he was upset he wasn't leaving today and is hoping to be discharged by the weekend. Pt denies other needs at this time and is encouraged to seek staff if any problems or concerns arise. Safety checks maintained per unit policy. [facility] Nursing Note Pt reported feeling anxious this afternoon at 13:00 and asked for his anxiety medication. Administered 1400 neurontin and inderal early for anxiety. Pt agreeable to taking his 1400 medication at this time. [facility] Nursing Note Pt came out for breakfast, ate and took fluids well. Remains medication compliant. Not med seeking noted as of yet this shift. Pt is foucsed on discharge and states he may be going today. Denies SI, HI, AV hallucinations. States he slept well last night. Normal [facility] 06-06-2024 30 Problem: Sensory Perceptual Alteration as Evidenced by Goal: Cooperates with admission process Outcome: Progressing Goal: Patient/Family participate in treatment and discharge plans Outcome: Progressing Goal: Patient/Family verbalizes awareness of resources Outcome: Progressing Goal: Discusses signs/symptoms of illness/treatment options Outcome: Progressing Problem: Potential for Harm to Self or Others Goal: Identifies deescalation techniques Outcome: Progressing Problem: Educational/Scholastic Disruption Goal: Meets educational requirements during hospitalization Outcome: Progressing [facility] Nursing Noteon 06-06-2024 Nursing Note Patient has been lay ing in bed since start of shift. Irritable, demanding of medication for anxiety, yet patient has no outward s/sx of anxiety. Did get HS snack. Intrusive with female staff. Rec'd PRN PO Trazodone 50 mg for insomnia at 3. Tolerated Seroquel 100 mg XR, no s/e reported. Normal [facility] Nursing Note Attempt made to wake pt for morning medications and for breakfast. Pt was loudly snoring and slept through the attempt. Pt came out of his room later and ate breakfast. Remains medication compliant. States he feels good to day when asked. Denies SI, HI, AV hallucinations. Mood is quiet and pt is withdrawn to his room. Remains med compliant. No compliant of anxiety. [facility] Nursing Note Attempted to draw jose raul bs, unable obtain. Left messaged for non emergent. [facility] Nursing Note Pt at nurses station asking to be discharged to the streets. Pt explained process of discharge. Pt went back to room. [facility] Nursing Note Pt continues to aske d for prn medications. Pt states I am hallucinating when I close my eyes. I need medication. Again, explained to pt medication unavailable at this time. Pt went back to room. [facility] 06-05-2024 30 Problem: Sensory Perceptual Alteration as Evidenced by Goal: Cooperates with admission process Outcome: Progressing Goal: Patient/Family participate in treatment and discharge plans Outcome: Progressing Goal: Patient/Family verbalizes awareness of resources Outcome: Progressing Goal: Discusses signs/symptoms of illness/treatment options Outcome: Progressing Problem: Potential for Harm to Self or Others Goal: Identifies deescalation techniques Outcome: Progressing Problem: Educational/Scholastic Disruption Goal: Meets educational requirements during hospitalization Outcome: Progressing [facility] [id number] 06-05-2024 [id number] Received voicemail f rom patient's legal guardian Clinton Elizabeth [phone] in regard to request for residential placement following psychiatric stabilization. Telephone call to guardian who stated that she would be interested in patient either going to [facility] or [facility]. First choice is [facility] as they have a good aftercare housing program. Permission obtained from guardian to sign release of information and [facility] witnessed by Gela Strauss RN/ANA. [facility] [phone] extension [phone]-Sina Rincon. Voicemail left for [facility]. [facility] [id number] Received voicemail t o contact patient's guardian Annmarie Elizabeth [phone]. Telephone call to guardian who stated patient would like residential treatment after discharge. She stated per Sina Rincon at [facility] [phone] extension [phone] patient may return to their program once psychiatrically stable. Telephone call to [facility] and left voicemail for Sina Rincon to contact social work also provided information to fax or email [facility] specific release of information. Social work continues to follow. Second telephone call placed to [facility] and was transferred to Kristie Simpson who stated there are beds available. Clinicals faxed. Telephone call placed to Kristie Simpson at [facility] [phone]. Voicemail left to confirm receipt of clinicals. [facility] 94on 06-05-2024 94 Department: [facility] ACTIVITIES THERAPY Group Topic: Leisure Skills Group Date: 06/05/2024 Start Time: 1400 End Time: 1430 Facilitators: Yuliana Kapadia Number of Participants: 2 Group Name: Cognitive Skills Treatment Modality: Leisure Development and Skills Training Purpose: enhance coping skills Summary: To expose patients to healthy leisure outlets. Name: Elkin Vaughn Date of : 1985 MR: [id number] Mental Status Exam: Appearance: Poor eye contact Affect: Blunted Behavior: Interactive Alertness: Alert Speech: Pressured and Slurred Cognition: [place] Thought Process: Goal-directed Thought Content: No evidence of psychosis/delusions Level/Quality of Participation: engaged Interactions with others: appropriate Interventions utilized were Activity Therapy Patient's Response to Intervention: on-task; appropriate interactions; blunt affect; mumbling with verbal responses; pressured speech Progress Towards Goal(s): Significant Additional Comments: Staff will continue to encourage pt to attend AT sessions. Next Step: Continue with current services Patients Problems: Patient Active Problem List Diagnosis Polysubstance (including opioids) dependence, daily use (HCC) Severe opioid use disorder (HCC) Unspecified mood (affective) disorder (HCC) Polysubstance abuse (CMS/HCC) (HCC) Opiate withdrawal (HCC) Hallucinations [facility] Behavioral Health Treatment Planon 06-05-2024 Behavioral Health Treatment Plan Per ED: presents with delusions. Per ED note: Patient was at [facility] and his back hurt and laid on the ground. Patient said he lost consciousness and then woke up. Patient was delusional and was seeing dogs. Patient denies SI/HI. Patient said he bought some weed and ate it. Guardian: Annmarie Elizabeth Recently discharged from [facility] and sent to [facility] in [place]. Guardian is wanting residential treatment ETOH: neg UDS: (+) fentanyl From: half-way Follow Up: residential treatment DIAGNOSIS: Unspecified psychosis Cannabis abuse HX of schizoaffective bipolar type HX of BPD HX of anxiety disorder HX of polysubstance abuse TREATMENT PLAN: Continue outpatient psychiatric medications including gabapentin 600 mg 3 times daily, Remeron 30 mg nightly, Inderal 20 mg 3 times daily, and Risperdal 1 mg twice daily. Pt will be encouraged to attend groups and activities on the unit. They will discharged to the appropriate level of care when psychiatrically stable. Discussed with the patient risk, benefit, alternative and common side effects for the proposed medication treatment. Patient consenting to the treatment. Psychotherapy: Encourage participation in milieu and group therapy Individual therapy as needed Consultations: SW GENERAL PATIENT/FAMILY EDUCATION Goals: Patient will understand basic signs and symptoms Patient will understand their role in recovery Consults: Psychiatry-Daily assessment. Medication management, encourage compliance with unit participation, and follow up SW-Assess SDOH Patient advocate-Pt aware of how to contact, and availability of advocate. Activities/Therapy- Encourage unit particiation, Assess for appropriateness of PHP/IOP. Nursing-Assessment every shift, and as needed. Monitor s/s of medication, sleep and appetite. Medication education. TCC-Follow up care [facility] Nursing Noteon 06-05-2024 Nursing Note Pt out on unit with shirt off, running in place, constricted affect I need help, I need help. Pt restless, agitated, irritable, tearful. Pt given Benadryl, Ativan, and Haldol po. [facility] Nursing Note Pt up at NS requesti ng prn medication to help him. Explained to pt medication not scheduled at this time and prn medication unavailable. Discussed coping techniques pt can utilize such as calm pacing and decreasing stimuli. [facility] Nursing Note Pt presents with flat/blunted affect. Compliant with hs medications and Trazodone prn for sleep. Pt received snack. Pt denies SI/HI and hallucinations. Patient encourage to notify staff of any mental health concerns, changes in condition or any questions. [facility] Nursing Note Pt is withdrawn to room. Pt doees come out for meals. Pt denie sSI/Hi. Pt denies AH/VH. Pt is compliant with medication. Safety checks maintained per unit policy. [facility] Nursing Note Pt refused labs this am, pt agreed to it until he saw the equipment. Multiple attempts made. [facility] Nursing Note Pt in day alfaro talki ng very loudly waking other patients. Pt had to be redirected multiple times. Pt is fixated on being discharged asking to speak to someone he's homeless and needs clothes. Whenever RN try's to answer patient begins another question. [facility] Nursing Note Pt offered oral prn but stated he wants I'm the pills dont work [facility] Nursing Note Pt stating he is anxious, was in room talking to himself stating he was talking to a friend in his dream. Pt then stated he is resltess and anxious and feels agitated. RN tried to discuss some coping mechanism to help manage the anxiety but patient stated I just want meds to help this junk doesn't work. Pt had to be redirected multiple times during conversation. [facility] Nursing Note Pt on unit I want a shot, I'm nervous about being discharged.. Pt explained no medications available at this time and needs to give prn medication that were given 30 minutes ago time to be effective. [facility] Progress Noteon 06-05-2024 Progress Note ACTIVITY THERAPY ASSESSMENT Met with patient for activity therapy assessment. Reviewed diagnosis, presenting complaint, current living situation, cultural/spiritual preferences, education level, vocational status and mental status at time of this assessment. Diagnosis (per chart review): mood affective disorder, polysubstance Presenting Problem: hallucinations Does the patient identify any cultural/spiritual influences that may impact patient participation with programs offered by the Activities team? Yes If Yes, describe: god Review of Recreation Therapy Involvement/Interests What do you normally enjoy doing in your free time? Write poetry, read Are you satisifed with how you've spent your free time recently? 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 Review of Other Diversionary Activities/Interests What are other activities, hobbies or events that you enjoy or help you feel better? Movies, past - meditation When you think about activities you enjoy, what is a positive benefit you experience at that time? Express self If patient unable to identify activities that bring orlin or other positive benefits, provide education on the benefits of participating in activities. Patient provided information on unit programming, including types of activities and program schedule for the unit? Yes Patient response: Patient states an interest in participating in groups Activities Therapy Treatment Plan Goal(s): Symptom Stabilization Objective(s): Pt will participate with a decrease of intrusive symptoms. Intervention: Pt will be offered 1 music or recreation therapy group daily and 2 general milieu therapy groups daily. Signature WALLY Guaman [facility] 30on 06-04-2024 30 Problem: Sensory Perceptual Alteration as Evidenced by Goal: Cooperates with admission process Outcome: Progressing Goal: Patient/Family participate in treatment and discharge plans Outcome: Progressing Goal: Patient/Family verbalizes awareness of resources Outcome: Progressing Goal: Discusses signs/symptoms of illness/treatment options Outcome: Progressing Problem: Potential for Harm to Self or Others Goal: Identifies deescalation techniques Outcome: Progressing Problem: Educational/Scholastic Disruption Goal: Meets educational requirements during hospitalization Outcome: Progressing [facility] 30 Problem: Sensory Perceptual Alteration as Evidenced by Goal: Patient/Family participate in treatment and discharge plans Outcome: Progressing Problem: Sensory Perceptual Alteration as Evidenced by Goal: Discusses signs/symptoms of illness/treatment options Outcome: Progressing [facility] 94on 06-04-2024 94 Department: [facility]IV[facility]IES [facility] Group Topic: Other Group Date: 06/04/2024 Start Time: 899 End Time: 919 Facilitators: Preston Chi Number of Participants: 3 Group Name: Trivia Treatment Modality: Leisure Development Purpose: express feelings, improve communication skills, and reinforce self-care Summary: Pts will engage in trivia surrounding several areas of [place] culture. After each question and answer, pts are encouraged to discuss their relation to the topic, where they were when such and such happened, when they first heard a song, their first impressions of a movie etc. Name: Elkin Vaughn Date of : 1985 MR: [id number] Appearance: Appropriately dressed and groomed Mood: Anxious Affect: Congruent with mood Behavior: Pleasant Alertness: Alert Speech: Appropriate Level/Quality of Participation: engaged Interactions with others: supportive Interventions utilized were Building rapport and engagement and Empathic listening Patient's Response to Intervention: patient voiced improvement, patient started group claiming to feel panicked, patient stated he felt calmer after group but wanted to leave group early Next Step: Continue with current services Patients Problems: Patient Active Problem List Diagnosis Polysubstance (including opioids) dependence, daily use (HCC) Severe opioid use disorder (HCC) Unspecified mood (affective) disorder (HCC) Polysubstance abuse (CMS/HCC) (HCC) Opiate withdrawal (HCC) Hallucinations [facility] Nursing Noteon 06-04-2024 Nursing Note Pt in day alfaro watch ing tv stated he was having panic attacks earlier but the meds were effective. Pt is cooperative and denies si/hi/ah/vh at this time. Pt encouraged to shower this evening. Pt states he is nervous about placement and clothing upon discharge. Pt offered emotional support, states he will discuss his concerns with doctor and social work. Pt encouraged to seek out staff for any needs. [facility] Nursing Note Patient started cryi ng in day reporting panic attack walked and breathing tech. Didn't work gave prn haldol ativan and benadryl per order at this time po [facility] Nursing Note Patient went to [facility] h and dinner, eating and drinking well. Patient was out in the day area most of the day being social with peers or watching television. Patient did request nicotine patch in the afternoon, order was put in and medication administered to patient. Patient was able to voice concerns to staff. Patient was independent ambulating, toileting and performing ADL's. [facility] Nursing Note Pt was seen for lexi hodgson assessment while out in the dining area eating his breakfast. Pt was cooperative with rapid speech throughout the interaction and denied having any thoughts of SI/HI or AH/VH but does endorse high amounts of anxiety due to being terrified about going back to half-way. Pt stated he is scared to go back because everyone always wants to fight and it's a horrible place so he would rather go to a rehab where hopefully people are nicer. Pt stated he did not sleep very good but has a good appetite although he is getting heartburn after most of the meals. Pt approached this nurse at about 0915 hours stating he is having what he thinks is a panic attack and would like some medication fir it soon as possible. Pt was offered Po Benadryl, Haldol, and Ativan and he accepted without any issue. Pt was encouraged to seek out a staff member or come to the front end software developer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 CK collected and sent to lab. Normal [facility] ED Nursing Note DEVON Onofre at bedside for labs Normal [facility] ED Nursing Note Pt to restroom Normal [facility] ED Nursing Note Patient had urine collected and sent to lab. Normal [facility] ED Nursing Note Pt vomited again, up and walking around while connected to IV fluids. DEVON ramirez and kenisha melo to bedside Normal [facility] ED Nursing Note Protective services at patient bedside attempting to redirect patient from screaming. Patient screaming Help I want some pop! Normal [facility] ED Nursing Note Patient laying in be d screaming I want some pop! Normal [facility] ED Nursing Note DEVON Ramirez at patien t bedside obtaining vitals. Normal [facility] ED Nursing Note DEVON Ramirez at bedside Normal [facility] ED Nursing Note Dr Longo at bedside Normal [facility] ED Nursing Note Pt emesis x 1 onto floor. Pt cleaned and bed changed. Normal [facility] ED Nursing Note DEVON Ramirez at bedsid e. Pt changed into clean gowns and linens replaced. Normal [facility] Nursing Noteon 06-02-2024 Nursing Note Pt calm and cooperat modesta upon approach. Presents with pressured speech, blunted affect. Pt denies SI/HI and hallucinations. Pt compliant with hs medications and utilized prn medications for sleep. Patient encourage to notify staff of any mental health concerns, changes in condition or any questions. Normal [facility] Nursing Note Pt arrived to [facility] via wheelchair from ED at 11:28. Pt oriented to floor and # 20 insyte dc'd. Cath intact. Pt tolerated without difficulty, pt states he is here because he needs to be back on his meds. Pt states he has been off meds for several months. Pt is homeless. Has seen psychiatrist in the past. Pt denies si/hi/ah/vh. Pt was in half-way for 43 days. Discharged 05/31/24. Normal [facility] CBC WITH AUTO DIFFERENTIALon 06-01-2024 Basophils (Bld) [#/Vol] 0.0 10*3/uL Normal 0.0-0.2 [facility] Comment on above: Performed By: #### L AB62, LAB17, LAB46 #### Fitness Services Manager: JENNIFER ENCISO ([phone]) [facility] ([facility]) [address] [place] [address] Basophils/100 WBC (Bld) 0.1 % Normal 0.0-2.0 [facility] Comment on above: Performed By: #### Nany RODRIGUEZ, LAB17, LAB46 #### Fitness Services Manager: JENNIFER ENCISO ([phone]) [facility]) [address] [place] [address] Eosinophils (Bld) [#/Vol] 0.0 10*3/uL Normal 0.0-0.5 [facility] Comment on above: Performed By: #### Nany RODRIGUEZ, LAB17, LAB46 #### Fitness Services Manager: JENNIFER ENCISO ([phone]) [address] Eosinophils/100 WBC (Bld) 0.2 % Normal 0.0-6.0 [facility] Comment on above: Performed By: #### Nany RODRIGUEZ LAB17, LAB46 #### Fitness Services Manager: JENNIFER ENCISO ([phone]) [facility]) [address] [place] [address] Erythrocyte distribution width (RBC) [Ratio] 13.3 % Normal 11.5-15.0 [facility] Comment on above: Performed By: #### Nany RODRIGUEZ, LAB17, LAB46 #### Fitness Services Manager: JENNIFER ENCISO ([phone]) [address] Hematocrit (Bld) [Volume fraction] 38.9 % Low 40.0-52.0 [facility] Comment on above: Performed By: #### Nany RODRIGUEZ, LAB17, LAB46 #### Fitness Services Manager: JENNIFER ENCISO ([phone]) [address] Hemoglobin (Bld) [Mass/Vol] 14.2 g/dL Normal 13.0-18.0 [facility] Comment on above: Performed By: #### Nany RODRIGUEZ, LAB17, LAB46 #### Fitness Services Manager: JENNIFER [phone]) [address] [place] [address] [place] IMMATURE GRANS % 0.5 % Normal 0.0-2.0 [facility] Comment on above: Performed By: #### Nany RODRIGUEZ, LAB17, LAB46 #### Fitness Services Manager: JENNIFER ENCISO ([phone]) [facility]) [address] [place] [address] IMMATURE GRANS ABSOLUTE 0.1 10*3/uL High <0.1 [facility] Comment on above: Performed By: #### Nany RODRIGUEZ, LAB17, LAB46 #### Fitness Services Manager: JENNIFER ENCISO ([phone]) [facility]) [address] [place] [address] Lymphocytes (Bld) [#/Vol] 2.1 10*3/uL Normal 1.0-4.3 [facility] Comment on above: Performed By: #### Nany RODRIGUEZ, LAB17, LAB46 #### Fitness Services Manager: JENNIFER ENCISO ([phone]) [facility]) [address] [place] [address] Lymphocytes/100 WBC (Bld) 20.2 % Normal 15.0-45.0 [facility] Comment on above: Performed By: #### Nany RODRIGUEZ, LAB17, LAB46 #### Fitness Services Manager: JENNIFER ENCISO ([phone]) [facility]) [address] [place] [address] MCH (RBC) [Entitic mass] 31.5 pg Normal 26.0-34.0 [facility] Comment on above: Performed By: #### Nany RODRIGUEZ, LAB17, LAB46 #### Fitness Services Manager: JENNIFER ENCISO ([phone]) [facility]) [address] [place] [address] MCHC 36.5 % High 30.5-36.0 [facility] Comment on above: Performed By: #### Nany RODRIGUEZ, LAB17, LAB46 #### Fitness Services Manager: JENNIFER ENCISO ([phone]) [facility]) [address] [place] [address] MCV (RBC) [Entitic vol] 86.3 fL Normal 77.0-99.0 [facility] Comment on above: Performed By: #### Nany RODRIGUEZ, LAB17, LAB46 #### Fitness Services Manager: JENNIFER ENCISO ([phone]) [facility] ([facility]) [address] [place] [address] Monocytes (Bld) [#/Vol] 0.8 10*3/uL Normal 0.0-0.9 [facility] Comment on above: Performed By: #### Nany RODRIGUEZ, LAB17, LAB46 #### Fitness Services Manager: JENNIFER ENCISO ([phone]) [facility] ([facility]) [address] [place] [address] Monocytes/100 WBC (Bld) 7.5 % Normal 5.0-13.0 [facility] Comment on above: Performed By: #### Nany RODRIGUEZ LAB17, LAB46 #### Fitness Services Manager: JENNIFER ENCISO ([phone]) [facility] ([facility]) [address] [place] [address] NEUTROPHILS ABSOLUTE 7.6 10*3/uL High 1.8-7.5 [facility] Comment on above: Performed By: #### Nany RODRIGUEZ, LAB17, LAB46 #### Fitness Services Manager: JENNIFER ENCISO ([phone]) [facility] ([facility]) [address] [place] [address] Neutrophils/100 WBC (Bld) 71.5 % Normal 38.0-82.0 [facility] Comment on above: Performed By: #### Nany RODRIGUEZ, LAB17, LAB46 #### Fitness Services Manager: JENNIFER ENCISO ([phone]) [facility] ([facility]) [address] [place] [address] [place] NRBC 0.0 /100 WBCs Normal 0.0-2.0 [facility] Comment on above: Performed By: #### Nany RODRIGUEZ, LAB17, LAB46 #### Fitness Services Manager: JENNIFER ENCISO ([phone]) [facility] ([facility]) [address] [place] [address] Platelet mean volume (Bld) [Entitic vol] 8.4 fL Low 9.0-12.7 [facility] Comment on above: Performed By: #### Nany RODRIGUEZ LAB17, LAB46 #### Fitness Services Manager: JENNIFER ENCISO ([phone]) [facility] ([facility]) [address] [place] [address] Platelets (Bld) [#/Vol] 191 10*3/uL Normal 140-440 [facility] Comment on above: Performed By: #### Nany RODRIGUEZ, LAB17, LAB46 #### Fitness Services Manager: JENNIFER ENCISO ([phone]) [facility] ([facility]) [address] [place] [address] RBC (Bld) [#/Vol] 4.51 10*6/uL Normal 4.40-5.90 [facility] Comment on above: Performed By: #### Nany RODRIGUEZ LAB17, LAB46 #### Fitness Services Manager: JENNIFER ENCISO ([phone]) [facility] ([facility]) [address] [place] [address] WBC (Bld) [#/Vol] 10.6 10*3/uL Normal 3.6-10.7 [facility] Comment on above: Performed By: #### Nany RODRIGUEZ LAB17, LAB46 #### Fitness Services Manager: JENNIFER ENCISO ([phone]) [facility] ([facility]) [address] [place] [address] CKon 06-01-2024 CK [Catalytic activity/Vol] 3033 U/L High 30-185 [facility] Comment on above: Performed By: #### Nany RODRIGUEZ LAB17, LAB46 #### Fitness Services Manager: JENNIFER ENCISO ([phone]) [facility]) [address] [place] [address] COMPREHENSIVE METABOLIC PANE Rodrigo 06-01-2024 Albumin [Mass/Vol] 4.0 g/dL Normal 3.5-5.0 [facility] Comment on above: Performed By: #### Nany RODRIGUEZ, LAB17, LAB46 #### Fitness Services Manager: JENNIFER ENCISO ([phone]) [facility] ([facility]) [address] [place] [address] [place] ALP [Catalytic activity/Vol] 53 U/L Normal 40-150 [facility] Comment on above: Performed By: #### Nany RODRIGUEZ, LAB17, LAB46 #### Fitness Services Manager: JENNIFER ENCISO ([phone]) [facility] ([facility]) [address] [place] [address] [place] ALT [Catalytic activity/Vol] 37 U/L Normal <40 [facility] Comment on above: Performed By: #### Nany RODRIGUEZ, LAB17, LAB46 #### Fitness Services Manager: JENNIFER ENCISO ([phone]) [facility] ([facility]) [address] [place] [address] Anion gap [Moles/Vol] 10 mmol/L Normal 3-13 [facility] Comment on above: Performed By: #### Nany RODRIGUEZ, LAB17, LAB46 #### Fitness Services Manager: JENNIFER ENCISO ([phone]) [facility] ([facility]) [address] [place] [address] [place] AST [Catalytic activity/Vol] 98 U/L High <34 [facility] Comment on above: Performed By: #### Nany RODRIGUEZ, LAB17, LAB46 #### Fitness Services Manager: JENNIFER ENCISO ([phone]) [facility] ([facility]) [address] [place] [address] [place] Bilirubin [Mass/Vol] 0.5 mg/dL Normal <1.2 [facility] Comment on above: Performed By: #### Nany RODRIGUEZ, LAB17, LAB46 #### Fitness Services Manager: JENNIFER ENCISO ([phone]) [facility] ([facility]) [address] [place] [address] [place] Calcium [Mass/Vol] 9.3 mg/dL Normal 8.4-10.2 [facility] Comment on above: Performed By: #### Nany RODRIGUEZ, LAB17, LAB46 #### Fitness Services Manager: JENNIFER ENCISO ([phone]) [facility] ([facility]) [address] [place] [address] Chloride [Moles/Vol] 103 mmol/L Normal 98-107 [facility] Comment on above: Performed By: #### L AB62, LAB17, LAB46 #### Fitness Services Manager: JENNIFER ENCISO ([phone]) [facility] ([facility]) [address] [place] [address] CO2 [Moles/Vol] 26 mmol/L Normal 22-29 [facility] Comment on above: Performed By: #### L AB62, LAB17, LAB46 #### Fitness Services Manager: JENNIFER ENCISO ([phone]) [facility]) [address] [place] [address] Creatinine [Mass/Vol] 1.19 mg/dL Normal 0.72-1.25 [facility] Comment on above: Performed By: #### Nany PRECIADO62, LAB17, LAB46 #### Fitness Services Manager: JENNIFER ENCISO ([phone]) [facility] ([facility]) [address] [place] [address] GLOMERULAR FILTRATION RATE ML/MIN/1.73 SQ M.PREDICTED 79.7 mL/min/1.73m*2 Normal >60.0 [facility] Comment on above: Result Comment: Calc ulation based on the Chronic Kidney Disease Epidemiology Collaboration (CKD-EPI) equation refit without adjustment for race Performed By: #### L 62, LAB17, LAB46 #### Fitness Services Manager: JENNIFER ENCISO ([phone]) [facility] ([facility]) [address] [place] [address] Glucose [Mass/Vol] 123 mg/dL High 74-100 [facility] Comment on above: Performed By: #### L AB62, LAB17, LAB46 #### Fitness Services Manager: JENNIFER ENCISO ([phone]) [facility]) [address] [place] [address] Potassium [Moles/Vol] 3.9 mmol/L Normal 3.5-5.1 [facility] Comment on above: Result Comment: [facility] potassium values may be up to 0.5 mmol/L lower than serum values. Performed By: #### L AB62, LAB17, LAB46 #### Fitness Services Manager: JENNIFER ENCISO ([phone]) [facility]) [address] [place] [address] Protein [Mass/Vol] 6.6 g/dL Normal 6.4-8.3 [facility] Comment on above: Performed By: #### L AB62, LAB17, LAB46 #### Fitness Services Manager: JENNIFER ENCISO ([phone]) [facility] ([facility]) [address] [place] [address] Sodium [Moles/Vol] 139 mmol/L Normal 136-145 [facility] Comment on above: Performed By: #### Nany AB62, LAB17, LAB46 #### Fitness Services Manager: JENNIFER ENCISO ([phone]) [facility]) [address] [place] [address] Urea nitrogen [Mass/Vol] 21 mg/dL Normal 8-21 [facility] Comment on above: Performed By: #### L AB62, LAB17, LAB46 #### Fitness Services Manager: JENNIFER ENCISO ([phone]) [facility]) [address] [place] [address] ED Nursing Noteon 06-01-2024 ED Nursing Note Patient dropped emes is bag full of vomit on floor. DEVON Ramirez at patient bedside. Normal [facility] ED Nursing Note Patient pulling at I V and pulling IV line. Kenisha River at patient bedside. Normal [facility] ED Nursing Note DEVON Ramirez at [facility] hospital bedside. Normal [facility] ED Nursing Note Patient given additional warm blanket by seating and mobility technologist. Normal [facility] ED Nursing Note EKG at patient bedside Normal [facility] ED Nursing Note DEVON Ramirez at doctors hospital bedside to obtain labs and IV. Dr. Ortiz at patient bedside assessing patient. Normal [facility] ED Nursing Note XRAY at patient bedside Normal [facility] ED Nursing Note Registration at [facility] ent bedside. Normal [facility] ED Nursing Note Kenisha Gregory at [facility] ent bedside obtaining covid swab Normal [facility] ED Nursing Note [place] at bedside for skin assessment Normal [facility] ED Nursing Note Pt changed into hospital gowns and socks. Wanded by protective services. 3 bags of belongings Normal [facility] ED Nursing Note Dr. Longo to 47 to se e pt Normal [facility] ED Nursing Note Pt to room 47 for triage/intake process Normal [facility] ED Nursing Note Patient was at [facility] a nd his back hurt and laid on the ground. Patient said he lost consciousness and then woke up. Patient was delusional and was seeing dogs. Patient denies SI/HI. Patient said he bought some weed and ate it. Normal [facility] ED Nursing Note Legal guardian tobar d to speak to attending physical that discharged him at the number [phone]. Dr. Polo notified via secure chat. This happened at 1904 on 06/01/24. 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 Denies questions. Ambulated out of dept with steady gait Normal [facility] ED Provider Noteon ED Provider Note Emergency Department Encounter Location: [facility] EMERGENCY DEPT Patient: Elkin Vaughn : 1985 Date of evaluation: 06/01/2024 ED Provider: Sonny Mo DO Time received sign-out: 0700 Elkin Vaughn was checked out to me by Dr. Faisal Longo. Please see his/her initial documentation for details of the patient's initial ED presentation, physical exam and completed studies. In brief, Elkin Vaughn is a 39 y.o. adult that presented to the emergency department past medical history of bipolar PTSD schizophrenia OCD polysubstance abuse presenting with chief complaint of hallucinations. Positioning minimally febrile tachycardic complaint of back pain. Neuroexam was performed there was no concerns of cord compression. Serotonin syndrome was considered patient did not have reported clonus. No recent serotonergic medications on chart review. CK has been downtrending initially 3000. Negative for methamphetamines positive for fentanyl. No ethanol. Psych was consulted and recommended evaluation by morning ER team. Does not appear actively intoxicated per previous provider. QTc within normal limits. I have reviewed and interpreted all of the currently available lab results and diagnostics from this visit: Results for orders placed or performed during the hospital encounter of 06/01/24 COVID-19, Flu A/B, and RSV Combo Collection Time: 06/01/24 11:17 PM Specimen: Nasopharynx; Swab Result Value Ref Range SARS-CoV-2 Not Detected Not Detected Respiratory Syncytial Virus Not Detected Not Detected Influenza A Not Detected Not Detected Influenza B Not Detected Not Detected CBC auto differential Collection Time: 06/01/24 11:33 PM Result Value Ref Range Auto WBC 10.6 3.6 - 10.7 10*3/uL RBC 4.51 4.40 - 5.90 10*6/uL Hemoglobin 14.2 13.0 - 18.0 g/dL Hematocrit 38.9 (L) 40.0 - 52.0 % MCV 86.3 77.0 - 99.0 fL MCH 31.5 26.0 - 34.0 pg MCHC 36.5 (H) 30.5 - 36.0 % RDW 13.3 11.5 - 15.0 % Platelets 191 140 - 440 10*3/uL MPV 8.4 (L) 9.0 - 12.7 fL nRBC 0.0 0.0 - 2.0 /100 WBCs Neutrophils Relative 71.5 38.0 - 82.0 % Lymphocytes Relative 20.2 15.0 - 45.0 % Monocytes Relative 7.5 5.0 - 13.0 % Eosinophils Relative 0.2 0.0 - 6.0 % Basophils Relative 0.1 0.0 - 2.0 % Immature Grans % 0.5 0.0 - 2.0 % Neutrophils Absolute 7.6 (H) 1.8 - 7.5 10*3/uL Lymphocytes Absolute 2.1 1.0 - 4.3 10*3/uL Monocytes Absolute 0.8 0.0 - 0.9 10*3/uL Eosinophils Absolute 0.0 0.0 - 0.5 10*3/uL Basophils Absolute 0.0 0.0 - 0.2 10*3/uL Immature Grans Absolute 0.1 (H) <0.1 10*3/uL Comprehensive metabolic panel Collection Time: 06/01/24 11:33 PM Result Value Ref Range SODIUM 139 136 - 145 mmol/L POTASSIUM 3.9 3.5 - 5.1 mmol/L CHLORIDE 103 98 - 107 mmol/L CARBON DIOXIDE 26 22 - 29 mmol/L ANION GAP 10 3 - 13 mmol/L UREA NITROGEN 21 8 - 21 mg/dL CREATININE 1.19 0.72 - 1.25 mg/dL GLUCOSE 123 (H) 74 - 100 mg/dL CALCIUM 9.3 8.4 - 10.2 mg/dL AST (SGOT) 98 (H) <34 U/L ALT 37 <40 U/L ALKALINE PHOSPHATASE 53 40 - 150 U/L ALBUMIN 4.0 3.5 - 5.0 g/dL BILIRUBIN, TOTAL 0.5 <1.2 mg/dL TOTAL PROTEIN 6.6 6.4 - 8.3 g/dL eGFR 79.7 >60.0 mL/min/1.73m*2 Ethanol Collection Time: 06/01/24 11:33 PM Result Value Ref Range ETHANOL IN SER/PLAS <10 <10 mg/dL CK Collection Time: 06/01/24 11:33 PM Result Value Ref Range CK 3,033 (H) 30 - 185 U/L Lactic acid with reflex Collection Time: 06/01/24 11:33 PM Result Value Ref Range LACTIC ACID 1.6 0.5 - 2.2 mmol/L ECG 12 lead Collection Time: 06/01/24 11:45 PM Result Value Ref Range Heart Rate 122 bpm QRSD Interval 92 ms QT Interval 324 ms QTC Interval 462 ms P [place] 53 degrees QRS [place] 90 degrees T Wave [place] 17 degrees [place] Interval 126 ms Drug screen panel, emergency Collection Time: 06/02/24 2:07 AM Result Value Ref Range AMPHETAMINE SCREEN Negative BARBITURATES SCREEN Negative BENZODIAZEPINE SCREEN Negative COCAINE METAB. SCREEN Negative METHADONE SCREEN Negative OPIATES SCREEN Negative OXYCODONE SCREEN Negative PHENCYCLIDINE SCREEN Negative FENTANYL SCREEN, UR QUAL Positive Complete Urinalysis Collection Time: 06/02/24 2:07 AM Result Value Ref Range Color, Urine Light Yellow Lt. Yellow Clarity, Urine Clear Clear pH, Urine 6.5 5.0 - 8.0 pH Leukocytes, Urine Negative Negative Collin/uL Nitrite, Urine Negative Negative Protein, Urine Negative Negative mg/dL Glucose, Urine Normal Normal (<70) mg/dL Bilirubin, Urine Negative Negative mg/dL Ketones, Urine Negative Negative mg/dL Urobilinogen, Urine Normal Normal (0-1) mg/dL Blood, Urine Negative Negative mg/dL SPECIFIC GRAVITY OF URINE (NUMERIC) 1.023 1.005 - 1.030 CK Collection Time: 06/02/24 2:49 AM Result Value Ref Range CK 2,033 (H) 30 - 185 U/L CK Collection Time: 06/02/24 6:12 AM Result Value Ref Range CK 1,552 (H) 30 - 185 U/L XR chest 1 view Final Result 1. No acute consolidation. Report Dictated on Meenakshi (more content not included)... [facility] ED Provider Note Brief Senior Kelly rodriguez Shift Note - See ED provider notes for further details 39-year-old male presenting for delusions. Does admit to using marijuana earlier tonight and was at [facility]. Laid down on the ground and said that he was seeing cats and dogs. Also has a history of methamphetamine use but states that he has not used since April. Denies cough, rhinorrhea, congestion, shortness of breath, dysuria, hematuria. [place] SI or HI. Exam: Tachycardic. Lungs CTAB. Abdomen soft nontender throughout. Ambulatory in the department. Pressured speech. Denies SI or HI. MDM: Noted vital signs which show temperature 100.5 F and tachycardia. Meet SIRS criteria but no obvious source of infection right now. Will obtain postvoid residual, CXR, limited viral panel and reassess. Workup revealed UDS that was negative other than fentanyl which is sent with patient history. CK elevated at 3000, down trended appropriately to 2000 after 2 L of fluid. Will give additional liter of fluid as patient is dry appearing and recheck. White blood cell count is normal which is reassuring in the setting of SIRS positive. On chart review patient was chronically on Klonopin so this may represent benzodiazepine withdrawal. He had been given 2 mg of oral Ativan, will give an additional 2 mg and reassess. Fever resolved with the Ativan and acetaminophen. Will likely require admission or at least psychiatric evaluation. If CK downtrend still less than the thousand, will plan to transfer to [facility] for definitive management, otherwise plan for psychiatry evaluation in the morning. He is medically cleared for evaluation and admission if needed. Hui Vera MD Resident 06/02/24 6149 [facility] ED Provider Note Emergency Department Encounter Location: [facility] Patient: Elkin Vaughn : 1985 Date of evaluation: 06/01/2024 ED Provider: Coby Cevallos MD Time received sign-out: 0700 Elkin Vaughn was checked out to me by Dr. Hui Vera and Dr. Bobby Longo. Please see his/her initial documentation for details of the patient's initial ED presentation, physical exam and completed studies. In brief, Elkin Vaughn is a 39 y.o. adult that presented to the emergency department for delusions. Patient reported today seeing cats and dogs with a history of meth use. I have reviewed and interpreted all of the currently available lab results and diagnostics from this visit: Results for orders placed or performed during the hospital encounter of 06/01/24 COVID-19, Flu A/B, and RSV Combo Collection Time: 06/01/24 11:17 PM Specimen: Nasopharynx; Swab Result Value Ref Range SARS-CoV-2 Not Detected Not Detected Respiratory Syncytial Virus Not Detected Not Detected Influenza A Not Detected Not Detected Influenza B Not Detected Not Detected CBC auto differential Collection Time: 06/01/24 11:33 PM Result Value Ref Range Auto WBC 10.6 3.6 - 10.7 10*3/uL RBC 4.51 4.40 - 5.90 10*6/uL Hemoglobin 14.2 13.0 - 18.0 g/dL Hematocrit 38.9 (L) 40.0 - 52.0 % MCV 86.3 77.0 - 99.0 fL MCH 31.5 26.0 - 34.0 pg MCHC 36.5 (H) 30.5 - 36.0 % RDW 13.3 11.5 - 15.0 % Platelets 191 140 - 440 10*3/uL MPV 8.4 (L) 9.0 - 12.7 fL nRBC 0.0 0.0 - 2.0 /100 WBCs Neutrophils Relative 71.5 38.0 - 82.0 % Lymphocytes Relative 20.2 15.0 - 45.0 % Monocytes Relative 7.5 5.0 - 13.0 % Eosinophils Relative 0.2 0.0 - 6.0 % Basophils Relative 0.1 0.0 - 2.0 % Immature Grans % 0.5 0.0 - 2.0 % Neutrophils Absolute 7.6 (H) 1.8 - 7.5 10*3/uL Lymphocytes Absolute 2.1 1.0 - 4.3 10*3/uL Monocytes Absolute 0.8 0.0 - 0.9 10*3/uL Eosinophils Absolute 0.0 0.0 - 0.5 10*3/uL Basophils Absolute 0.0 0.0 - 0.2 10*3/uL Immature Grans Absolute 0.1 (H) <0.1 10*3/uL Comprehensive metabolic panel Collection Time: 06/01/24 11:33 PM Result Value Ref Range SODIUM 139 136 - 145 mmol/L POTASSIUM 3.9 3.5 - 5.1 mmol/L CHLORIDE 103 98 - 107 mmol/L CARBON DIOXIDE 26 22 - 29 mmol/L ANION GAP 10 3 - 13 mmol/L UREA NITROGEN 21 8 - 21 mg/dL CREATININE 1.19 0.72 - 1.25 mg/dL GLUCOSE 123 (H) 74 - 100 mg/dL CALCIUM 9.3 8.4 - 10.2 mg/dL AST (SGOT) 98 (H) <34 U/L ALT 37 <40 U/L ALKALINE PHOSPHATASE 53 40 - 150 U/L ALBUMIN 4.0 3.5 - 5.0 g/dL BILIRUBIN, TOTAL 0.5 <1.2 mg/dL TOTAL PROTEIN 6.6 6.4 - 8.3 g/dL eGFR 79.7 >60.0 mL/min/1.73m*2 Ethanol Collection Time: 06/01/24 11:33 PM Result Value Ref Range ETHANOL IN SER/PLAS <10 <10 mg/dL CK Collection Time: 06/01/24 11:33 PM Result Value Ref Range CK 3,033 (H) 30 - 185 U/L Lactic acid with reflex Collection Time: 06/01/24 11:33 PM Result Value Ref Range LACTIC ACID 1.6 0.5 - 2.2 mmol/L ECG 12 lead Collection Time: 06/01/24 11:45 PM Result Value Ref Range Heart Rate 122 bpm QRSD Interval 92 ms QT Interval 324 ms QTC Interval 462 ms P [place] 53 degrees QRS [place] 90 degrees T Wave [place] 17 degrees [place] Interval 126 ms Drug screen panel, emergency Collection Time: 06/02/24 2:07 AM Result Value Ref Range AMPHETAMINE SCREEN Negative BARBITURATES SCREEN Negative BENZODIAZEPINE SCREEN Negative COCAINE METAB. SCREEN Negative METHADONE SCREEN Negative OPIATES SCREEN Negative OXYCODONE SCREEN Negative PHENCYCLIDINE SCREEN Negative FENTANYL SCREEN, UR QUAL Positive Complete Urinalysis Collection Time: 06/02/24 2:07 AM Result Value Ref Range Color, Urine Light Yellow Lt. Yellow Clarity, Urine Clear Clear pH, Urine 6.5 5.0 - 8.0 pH Leukocytes, Urine Negative Negative Collin/uL Nitrite, Urine Negative Negative Protein, Urine Negative Negative mg/dL Glucose, Urine Normal Normal (<70) mg/dL Bilirubin, Urine Negative Negative mg/dL Ketones, Urine Negative Negative mg/dL Urobilinogen, Urine Normal Normal (0-1) mg/dL Blood, Urine Negative Negative mg/dL SPECIFIC GRAVITY OF URINE (NUMERIC) 1.023 1.005 - 1.030 CK Collection Time: 06/02/24 2:49 AM Result Value Ref Range CK 2,033 (H) 30 - 185 U/L CK Collection Time: 06/02/24 6:12 AM Result Value Ref Range CK 1,552 (H) 30 - 185 U/L XR chest 1 view Final Result 1. No acute consolidation. Report Dictated on Electronically Signed By: José Miguel Forman MD Electronically Signed Date/Time: 06/01/2024 11:25 PM EST Final ED Course and MDM: Elkin Vaughn is a 39 y.o. whose care was signed out to me by the outgoing provider. In brief, presenting with delusions. Patient prescribed Klonopin so may be undergoing benzo withdrawal leading to symptoms. Patient's creatinine kinase was elevated and down trended to 1500 after fluid replenishment. Other lab work was unremarkable and UDS was positive for fentanyl. Patient is medically markos (more content not included)... Normal [facility] ED Provider Note EMERGENCY DEPARTMENT ENCOUNTER Pt Name: Elkin Vaughn Birthdate 1985 Date of evaluation: 06/01/2024 ED Provider: Bobby Longo DO Subjective: CHIEF COMPLAINT Chief Complaint Patient presents with Delusional Patient was at [facility] and his back hurt and laid on the ground. Patient said he lost consciousness and then woke up. Patient was delusional and was seeing dogs. Patient denies SI/HI. Patient said he bought some weed and ate it. HISTORY OF PRESENT ILLNESS (Location/Symptom, Timing/Onset, Context/Setting, Quality, Duration, Modifying Factors, Severity) Note limiting factors. I wore appropriate PPE for the entirety of this encounter. HPI Elkin Vaughn is a 39 y.o. who presents to the emergency department chief complaint of back pain and hallucinations. Patient states that his back started hurting at the store today so he laid on the ground. He then experienced visual hallucinations of dogs running around and jumping over him. He states that back pain and hallucinations are chronic problemss. He has documented history of bipolar schizoaffective and anxiety disorders. States that he only currently takes gabapentin mirtazapine and prazosin. He denies IV drug use. States that he smokes or snorts methamphetamine. Also uses alcohol marijuana and fentanyl. States that he vapes substance yesterday and he believes contains THC but may have been fentanyl or synthetics. Endorses pain in neck and thoracolumbar region Denies suicidal and homicidal ideation. Denies current hallucinations Denies chest pain chest tightness or palpitations Denies coughing wheezing or shortness of breath Denies pain burning itching with urination Nursing Notes were reviewed. Limitations to history: Outside historians: REVIEW OF SYSTEMS Review of Systems Pertinent positives and negatives as per HPI. PAST MEDICAL HISTORY Past Medical History: Diagnosis Date Bipolar 1 disorder (HCC) OCD (obsessive compulsive disorder) Psychiatric problem PTSD (post-traumatic stress disorder) Schizo affective schizophrenia (HCC) SURGICAL HISTORY History reviewed. No pertinent surgical history. CURRENT MEDICATIONS Current Discharge Medication List CONTINUE these medications which have NOT CHANGED Details gabapentin (Neurontin) 300 MG capsule Take 1 capsule (300 mg) by mouth 3 times daily for 10 days. Qty: 30 capsule, Refills: 0 mirtazapine (Remeron) 7.5 MG tablet Take 1 tablet (7.5 mg) by mouth Nightly for 10 days. Qty: 10 tablet, Refills: 0 prazosin (Minipress) 5 MG capsule Take 1 capsule (5 mg) by mouth Nightly for 10 days. Qty: 10 capsule, Refills: 0 ALLERGIES Patient has no known allergies. FAMILY HISTORY No family history on file. SOCIAL HISTORY Social History Socioeconomic History Marital status: Single Tobacco Use Smoking status: Every Day Current packs/day: 1.00 Types: Cigarettes Substance and Sexual Activity Alcohol use: Not Currently Drug use: Yes Types: Marijuana Sexual activity: Defer Social Drivers of Health Transportation Needs: No Transportation Needs (06/02/2024) PRAPARE - Transportation Lack of Transportation (Medical): No Lack of Transportation (Non-Medical): No Housing Stability: High Risk (06/02/2024) Housing Stability Vital Sign Unable to Pay for Housing in the Last Year: Yes Homeless in the Last Year: Yes SCREENINGS Shiva Coma Scale Best Eye Response: Spontaneous Best Verbal Response: Oriented Best Motor Response: Follows commands Shiva Coma Scale Score: 15 Objective: PHYSICAL EXAM ED Triage Vitals Temp Pulse Resp BP -- -- -- -- SpO2 Temp src Heart Rate Source Patient Position -- -- -- -- BP Location FiO2 (%) -- -- Physical Exam Constitutional: General: He is not in acute distress. Appearance: He is not ill-appearing or toxic-appearing. HENT: Mouth/Throat: Mouth: Mucous membranes are dry. Cardiovascular: Rate and Rhythm: Regular rhythm. Tachycardia present. Heart sounds: No murmur heard. No friction rub. No gallop. Pulmonary: Effort: No respiratory distress. Breath sounds: No wheezing, rhonchi or rales. Abdominal: Palpations: Abdomen is soft. Tenderness: There is no abdominal tenderness. There is no guarding or rebound. Skin: Coloration: Skin is not jaundiced or pale. Findings: No bruising. Neurological: Comments: Alert and oriented to person place time and situation Tangential and rapid speech No point tenderness in the cervical thoracic or lumbar spine. Patellar and Achilles reflexes 2+. DIAGNOSTIC RESULTS RADIOLOGY (Per Emergency Physician): Interpretation per the Radiologist below, if available at the time of this note: XR chest 1 view Final Result 1. No acute consolidation. Report Dictated on Electronically Signed By: José Miguel Forman MD Electronically Signed Date/Time: 06/01/2024 11:25 PM EST LABS: Labs Reviewed CBC WITH (more content not included)... Normal [facility] ED Provider Note Emergency Department Encounter [facility] EMERGENCY DEPT Patient: Elkin Vaughn : 1985 Date of Evaluation: 06/01/2024 ED Supervising Physician: Terry Olmos DO I independently examined and evaluated Elkin Vaughn. This will serve as my Supervisory note and shared attestation. I did perform a substantive portion of the visit including all aspects of the Medical Decision Making. In brief, Elkin Vaughn is a 39 y.o. male that presents to the emergency department for 39-year-old male presenting for psychiatric evaluation. Patient was reportedly found on the ground in the [facility]. He explains that he was laying there. He has back pain. He is feeling agitated. Admits to recent amphetamine use but not in the last few days. Also was drinking alcohol per his report. Focused exam: GENERAL: Awake, alert, no apparent distress HEAD: Atraumatic, normocephalic NECK: Trachea midline CV: Tachycardia RESPIRATORY: Clear breath sounds bilaterally. No respiratory distress. No accessory muscle use. GI: Abdomen soft, nontender throughout. No rigidity, rebound or guarding. NEURO: Alert and oriented x 3. Follows commands. Normal motor and sensation throughout. No focal deficits. SKIN: Warm, dry, no lesions noted PSYCH: Bizarre behavior. Patient is cooperative, anxious. Currently denying SI or HI. Reports hallucinations. Brief ED course/MDM: 39-year-old male presenting for agitation, hallucinations, fever. Concern for drug ingestion, alcohol ingestion, acute psychosis. His fever is concerning for if he has history of intravenous drug use for any severe infection such as epidural abscess or endocarditis. Plan to check septic labs. We will check viral studies. Patient be treated with Ativan. Chest x-ray personally interpreted showed no acute intrathoracic consolidation or pneumothorax. At this time, I have low concern for NMS, serotonin syndrome. Considered benzodiazepine withdrawal however patient did not respond markedly to oral benzo administration. His labs show no leukocytosis, grossly normal metabolic panel, normal lactic acid. His CK is mildly elevated to 2000. His drug screen is only positive for fentanyl. After the Ativan, his heart rate has improved, his temperature has resolved. Will plan to continue to treat with IV fluids, possible additional benzodiazepines, consider medical admission if his vital signs and mentation do not improve versus consultation with psychiatry for psych admission Vitals: Vitals: 06/01/24 2259 06/01/24 2305 06/01/24 2315 06/02/24 0132 BP: 126/82 (!) 139/95 Pulse: (!) 144 (!) 131 Resp: 18 18 Temp: (!) 38.1 ?C (100.5 ?F) 37.1 ?C (98.8 ?F) TempSrc: Temporal Temporal SpO2: 98% 98% 99% Weight: 90.7 kg (200 lb) Height: 1.905 m (6' 3) ED Course as of 06/02/24312 [facility] Jun 01, 2024 2320 39-year-old male presenting for delusions. Does admit to using marijuana earlier tonight and was at [facility]. Laid down on the ground and said that he was seeing cats and dogs. Also has a history of methamphetamine use but states that he has not used since April. Denies cough, rhinorrhea, congestion, shortness of breath, dysuria, hematuria. Nuys SI or HI. Exam: Tachycardic. Lungs CTAB. Abdomen soft nontender throughout. Ambulatory in the department. Pressured speech. Denies SI or HI. Noted vital signs which show temperature 100.5 F and tachycardia. Meet SIRS criteria but no obvious source of infection right now. Will obtain postvoid residual, CXR, limited viral panel and reassess. [RP] WedJun 02, 2024 0012 CK is elevated. Concerning for rhabdomyolysis. Patient receiving fluid boluses. Creatinine is within normal limits there is no evidence of JEANNETTE at this time. Lactate is within normal limits [SC] 0021 EKG reviewed. From personal interpretation there is no evidence of acute myocardial ischemia or heart block. There is sinus tachycardia with borderline prolonged QTc interval [SC] 0030 Viral swab is negative [SC] 0030 I was informed of the patient is complaining of nausea and vomiting. On reassessment the patient is complaining of vomiting and full body aches and chills. On repeat spinal exam there is no midline tenderness. [SC] ED Course User Index [RP] Hui Vera MD [SC] Bobby Longo, DO Diagnoses as of 06/02/24312 Hallucinations Non-traumatic rhabdomyolysis ED Medications managed: Medications acetaminophen (Tylenol) tablet 1,000 mg (1,000 mg Oral Given 06/01/245) sodium chloride 0.9 % bolus 1,000 mL (0 mL IntraVENous Stopped 06/02/24 0044) LORazepam (Ativan) tablet 2 mg (2 mg Oral Given 06/01/24 2344) sodium chloride 0.9 % bolus 1,000 mL (0 mL IntraVENous Stopped 06/02/24 0121) ondansetron (Zofran) injection 4 mg (4 mg IntraVENous Given 06/02/24 0027) All diagnostic, treatment, and disposition decisions were made by myself in conjunction with the Resident. I also supervised jenkins portions of any procedures performed by the Resi (more content not included)... Normal [facility] ED Provider Note EMERGENCY DEPARTMENT ENCOUNTER Pt Name: Elkin Vaughn Birthdate 1985 Date of evaluation: 06/01/2024 ED Provider: Carson Polo MD CHIEF COMPLAINT Chief Complaint Patient presents with Anxiety Pt states he was just released from [facility] and needs help getting back on his anxiety medications including his klonopin and gabapentin. Has not had them since before being in [facility] which was about 2 months. Pt denies any SI, HI or hallucinations. HISTORY OF PRESENT ILLNESS (Location/Symptom, Timing/Onset, Context/Setting, Quality, Duration, Modifying Factors, Severity) Note limiting factors. I wore appropriate PPE for the entirety of this encounter. HPI Elkin Vaughn is a 39 y.o. who presents to the emergency department with anxiety, says he was just released from [facility], is not on any of his normal medications which include gabapentin Klonopin and Remeron and prazosin. He says he was at a facility where he was positive for fentanyl Nursing Notes were reviewed. Limitations to history: None Outside historians: None REVIEW OF SYSTEMS Review of Systems Pertinent positives and negatives as per HPI PAST MEDICAL HISTORY Past Medical History: Diagnosis Date Bipolar 1 disorder (HCC) OCD (obsessive compulsive disorder) Psychiatric problem PTSD (post-traumatic stress disorder) Schizo affective schizophrenia (HCC) SURGICAL HISTORY History reviewed. No pertinent surgical history. CURRENT MEDICATIONS Previous Medications No medications on file ALLERGIES Patient has no known allergies. FAMILY HISTORY No family history on file. SOCIAL HISTORY Social History Socioeconomic History Marital status: Single Tobacco Use Smoking status: Every Day Current packs/day: 1.00 Types: Cigarettes Substance and Sexual Activity Alcohol use: Not Currently Drug use: Yes PHYSICAL EXAM ED Triage Vitals [06/01/24 1658] Temp Heart Rate Resp BP 36.8 ?C (98.3 ?F) (!) 115 20 126/88 SpO2 Temp Source Heart Rate Source Patient Position 96 % Temporal Monitor -- BP Location FiO2 (%) -- -- Physical Exam Awake alert and oriented, appears anxious, heart regular rate and rhythm DIAGNOSTIC RESULTS RADIOLOGY (Per Emergency Physician): Interpretation per the Radiologist below, if available at the time of this note: No orders to display LABS: Labs Reviewed - No data to display All other labs were within normal range or not returned as of this dictation. EMERGENCY DEPARTMENT COURSE and DIFFERENTIAL DIAGNOSIS/MDM: Vitals: Vitals: 06/01/24 1658 BP: 126/88 Pulse: (!) 115 Resp: 20 Temp: 36.8 ?C (98.3 ?F) TempSrc: Temporal SpO2: 96% Medications clonazePAM (KlonoPIN) tablet 0.5 mg (has no administration in time range) SCREENINGS MDM elements: The patient presented with chief complaint of wanting medication refill, he denied any suicidal or homicidal thoughts, he does have a history of schizophrenia but did not appear to be acutely psychotic, patient did not tell me that he had a guardian and was discharged, the guardian later called and I spoke to her twice, patient came back into the ED and I try to get him to stay for evaluation but he said he wanted to go out and smoke a cigarette and then left again. I did not have anything to hold him on as far as a pink slip is concerned. I did refill his gabapentin Remeron and prazosin but did not refill his Klonopin. The differential diagnosis associated with this patient's presentation includes anxiety, history of psychosis, drug use. Our workup consisted of ordering/reviewing: No need for imaging or labs. The patient will be Discharged. Patient is in agreement with this plan. PROCEDURES: Unless otherwise noted below, none Procedures CRITICAL CARE TIME None FINAL IMPRESSION 1. Anxiety 2. Medication refill DISPOSITION Discharge 06/01/2024 05:51:47 PM [facility] [address] [place] [id number] Schedule an appointment as soon as possible for a visit DISCHARGE MEDICATIONS: New Prescriptions GABAPENTIN (NEURONTIN) 300 MG CAPSULE Take 1 capsule (300 mg) by mouth 3 times daily for 10 days. MIRTAZAPINE (REMERON) 7.5 MG TABLET Take 1 tablet (7.5 mg) by mouth Nightly for 10 days. PRAZOSIN (MINIPRESS) 5 MG CAPSULE Take 1 capsule (5 mg) by mouth Nightly for 10 days. (Comment: Please note this report has been produced using speech recognition software and may contain errors related to that system including errors in grammar, punctuation, and spelling, as well as words and phrases that may be inappropriate. If there are any questions or concerns please feel free to contact the dictating provider for clarification.) Carson Polo MD (electronically signed) Emergency Medicine Provider Carson Polo MD 06/01/242142 Normal [facility] ETHANOLon 06-01-2024 ETHANOL IN SER/PLAS <10 Normal <10 [facility] Comment on above: Result Comment: MEJIA Doll COMMENTS: COMPUTER GAME TESTER depression is seen >100 mg/dL. NOTE: This result is for medical treatment only. Analysis performed using non-forensic procedures. Performed By: #### L AB62, LAB17, LAB46 #### Fitness Services Manager: JENNIFER ENCISO ([phone]) [facility]) [address] [place] [address] LACTIC ACID WITH REFLEXon Lactate [Moles/Vol] 1.6 mmol/L Normal 0.5-2.2 [facility] Comment on above: Performed By: #### Nany RODRIGUEZ, LAB17, LAB46 #### Fitness Services Manager: JENNIFER ENCISO ([phone]) [facility] ([facility]) [address] [place] [address] SARS-COV-2, FLU A/B, AND RSV COMBOon 06-01-2024 SARS-CoV-2 (COVID-19) RNA ALEX+probe Ql (Unsp spec) SARS-COV-2 Reference Not Detected Not Detected RESPIRATORY SYNCYTIAL VIRUS Reference Not Detected Not Detected INFLUENZA A (CEPHEID) Reference Not Detected Not Detected INFLUENZA B (CEPHEID) Reference Not Detected Not Detected ORDER COMMENTS: Methodology: real-time, RT-PCR Normal [facility] Comment on above: Performed By: #### L 62, LAB17, LAB46 #### Fitness Services Manager: JENNIFER ENCISO ([phone]) [facility] ([facility]) [address] [place] [address] CBC panel Auto (Bld)on 03-28 Erythrocyte distribution width (RBC) [Ratio] 13.9 % Normal 11.5-15.0 [facility] Comment on above: Order Comment: Speci men Type: BLOOD SPECIMEN Ordering Facility: [facility] Address: [address] [place], [place] [address] Performed By: #### 3 298-7, 37355-3, 5643-2 #### [facility] CLIA [id number] [address] [place], [place] [id number] [place] Hematocrit (Bld) [Volume fraction] 36.4 % Low 39.0-51.0 [facility] Comment on above: Order Comment: Speci men Type: BLOOD SPECIMEN Ordering Facility: [facility] Address: [address] [place] [address] Performed By: #### 3 298-7, 85141-1, 5643-2 #### [facility] CLIA [id number] [address] [place] [address] [place] Hemoglobin (Bld) [Mass/Vol] 13.0 g/dL Normal 13.0-17.0 [facility] Comment on above: Order Comment: Speci men Type: BLOOD SPECIMEN Ordering Facility: [facility] Address: [address] [place] [address] Performed By: #### 3 298-7, 43089-7, 5643-2 #### [facility] CLIA [id number] [address] [place] [address] [place] MCH (RBC) [Entitic mass] 31.1 pg Normal 26.0-34.0 [facility] Comment on above: Order Comment: Speci men Type: BLOOD SPECIMEN Ordering Facility: [facility] Address: [address] [place] [address] Performed By: #### 3 298-7, 31690-3, 5643-2 #### [facility] CLIA [id number] [address] [place] [address] [place] [facility] [place] MCHC (RBC) [Mass/Vol] 35.7 g/dL Normal 30.5-36.0 [facility] Comment on above: Order Comment: Speci men Type: BLOOD SPECIMEN Ordering Facility: [facility] Address: [address] [place] [address] Performed By: #### 3 298-7, 71279-0, 5643-2 #### [facility] CLIA [id number] [address] [place], [place] [address] [place] MCV (RBC) [Entitic vol] 87.1 fL Normal 80.0-100.0 [facility] Comment on above: Order Comment: Speci men Type: BLOOD SPECIMEN Ordering Facility: [facility] Address: [address] [place] [address] Performed By: #### 3 298-7, 74185-5, 5643-2 #### [facility] CLIA [id number] [address] [place], [place] [id number] [place] Nucleated RBC (Bld) [#/Vol] 10*3/uL Normal <0.01 [facility] Comment on above: Order Comment: Speci men Type: BLOOD SPECIMEN Ordering Facility: [facility] Address: [address] [place] [address] Performed By: #### 3 298-7, 15760-9, 5643-2 #### [facility] CLIA [id number] [address] [place], [place] [address] [place] Platelet mean volume (Bld) [Entitic vol] 8.0 fL Low 9.0-12.7 [facility] Comment on above: Order Comment: Speci men Type: BLOOD SPECIMEN Ordering Facility: [facility] Address: [address] [place] [address] Performed By: #### 3 298-7, 44525-7, 5643-2 #### [facility] CLIA [id number] [address] [place], [place] [address] [place] Platelets (Bld) [#/Vol] 258 10*3/uL Normal 150-400 [facility] Comment on above: Order Comment: Speci men Type: BLOOD SPECIMEN Ordering Facility: [facility] Address: [address] [place] [address] Performed By: #### 3 298-7, 12798-7, 5643-2 #### [facility] CLIA [id number] [address] [place] [address] [place] RBC (Bld) [#/Vol] 4.18 10*6/uL Low 4.20-6.00 [facility] Comment on above: Order Comment: Speci men Type: BLOOD SPECIMEN Ordering Facility: [facility] Address: [address] [place], [place] [address] Performed By: #### 3 298-7, 31716-3, 5643-2 #### [facility] CLIA [id number] [address] [place] [address] [place] [facility] [place] WBC (Bld) [#/Vol] 5.80 10*3/uL Normal 3.70-11.00 [facility] Comment on above: Order Comment: Speci men Type: BLOOD SPECIMEN Ordering Facility: [facility] Address: [address] [place] [address] Performed By: #### 3 298-7, 22519-5, 5643-2 #### [facility] CLIA [id number] [address] [place], [place] [address] [place] CK SerPl-cCncon 03-28-2024 CK [Catalytic activity/Vol] 439 U/L High 26-192 [facility] Comment on above: Order Comment: Speci men Type: BLOOD SPECIMEN Ordering Facility: [facility] Address: [address] [place] [address] Performed By: #### 3 298-7, 12216-4, 5643-2 #### [facility] CLIA [id number] [address] [place], [place] [address] [place] CNDSon 03-28-2024 CNDS HNO ID: [id number] Author: CORAL LORENZO APRN.CNP Service: Hospital Medicine Author Type: Nurse Practitioner Type: Discharge Summary Filed: 04/06/2024 18:10 Note Text: DISCHARGE SUMMARY PATIENT NAME: Elkin Vaughn ADMISSION DATE: 03/26/2024 Discharge 03/29/2024 Attending Physician: Vivian Garnett MD Code Status: Full Code Highest Readmission Risk Score: 21 The 30 day readmissions risk score is derived from an internally validated risk model which evaluates patient level characteristics, utilization history, medication orders and lab results up until the day of discharge. Patients with a score of 40 or above are considered highest risk for readmission. Specific patient level drivers will be listed at the bottom of the summary. Reason for Hospitalization: Principal Problem: Benzocaine overdose of undetermined intent, initial encounter (POA: Yes) Active Problems: Nicotine use disorder, F17.2 (POA: Unknown) Resolved Problems: * No resolved hospital problems. * Operations During Hospitalization: None Procedures During Hospitalization: Head and C spine CT Hospital Course: Mr. Vaughn is 39 year old male patient with a history of exercise induced asthma, GERD, FRANCISCO, Schizoaffective disorder bipolar type who was admitted earlier this morning for a psychiatric evaluation for benzodiazepine overdose. The patient was transported to the emergency department via EMS after consuming a handful of xanax in the attempt to cause self harm. The patient, who took the benzodiazepines in combination with alcohol, admits to a history of cannabinoids utilization as well. Emergency department provider was notified by the [facility] and recovery board the patient left treatment from [facility] on March 25, 2024. Laboratory studies revealed negative acetaminophen and salicylate levels. Creatinine was noted at 1.46. LFTs were found to be unremarkable. No leukocytosis noted. Hemoglobin stable at 11.9. Urinalysis showed sperm and hyaline casts. No active infection noted. UDS was found to be positive for benzodiazapine and cannabinoids. EKG showed SR. Poison control was contacted. They recommended 6 hour observation. Patient was evaluated at bedside this afternoon. He was evaluated at bedside with patient loss prevention and safety manager present. Patient's speech is rapid. On several occasions during today's visit, the patient would be lying in a supine position and rapidly pop up into a sitting position, ask several questions, then lie back down. Before answers could be answered, he would ask a series of questions, making it difficult to effectively communicate with him. Patient kept asking for Klonopin. When am I going to get Klonopin?.... Can I get some Klonopin?.Disorganized thought patterns and flight of ideas were noted throughout today's evaluation. Patient denies any chest pain, shortness of breath, nausea, or vomiting. He denies suicidal and homicidal ideation at this time. He has been evaluated by Dr. Carolynn Mitchell who has recommended inpatient psychiatric admission. Laboratory studies performed this morning revealed no leukocytosis with a WBC of 5.75. Hemoglobin stable at 12.8 with hematocrit of 36.6. No hyponatremia or hypokalemia noted. BUN 16 with a creatinine of 0.93. Magnesium 1.7. Total bilirubin 0.3, alkaline phosphatase 50, ALT 16 and AST 23. CK is elevated at 663. Ionized calcium 1.06. Currently, he is hemodynamically stable and afebrile. Oxygen saturations levels are well maintained on room air. Currently, his oxygen saturation level is 99% R/A. March 28, 2024- Patient was seen at bedside today. He was found lying head down on his bed repeatedly saying hey sis, hey sis, hey sis. With treatment, there has been some improvement in his min. However, he continues with rapid speech and flight of ideas. There are no reports of chest pain, shortness of breath, nausea, or vomiting. Laboratory studies performed earlier this morning revealed no hyponatremia or hypokalemia. BUN 10 with a creatinine of 0.94. Ionized calcium has normalized with a level of 1.17. Magnesium 2.1 total bilirubin 0.2, alkaline phosphatase 50, ALT16, and AST 26. CK level has improved. Previously noted at 663, nail 439. No leukocytosis noted with a WBC of 5.8. Hemoglobin 13 with a hematocrit of 36.4. He is hemodynamically stable, afebrile. Patient is medically cleared for inpatient psychiatric admission. Physical Exam Vitals and nursing note reviewed. Constitutional: Appearance: He is not ill-appearing, toxic-appearing or diaphoretic. Comments: Rapid, pressured speech, flight of ideas HENT: Head: Normocephalic and atraumatic. Cardiovascular: Comments: Mildly tachycardia Pulmonary: Effort: No respiratory distress. Breath sounds: No stridor. No wheezing, rhonchi or rales. Chest: Chest wall: No tenderness. Abdominal: General: There is no distension. (more content not included)... Normal [facility] Calcium.ionized [Moles/Vol]o n 03-28-2024 Calcium.ionized (Bld) [Mass/Vol] 1.17 mmol/L Normal 1.08-1.30 [facility] Comment on above: Order Comment: Speci men Type: BLOOD SPECIMEN Ordering Facility: [facility] Address: [address] [place], [place] [address] Performed By: #### 3 298-7, 59250-4, 5643-2 #### [facility] CLIA [id number] [address] [place] [address] [place] [facility] [place] Calcium.ionized adjusted to pH 7.4 (Bld) [Moles/Vol] 1.16 mmol/L Normal 1.08-1.30 [facility] Comment on above: Order Comment: Speci men Type: BLOOD SPECIMEN Ordering Facility: [facility] Address: [address] [place] [address] Performed By: #### 3 298-7, 32382-3, 5643-2 #### [facility] CLIA [id number] [address] [place] [address] [place] Comprehensive metabolic 2000 panelon 03-28-2024 Albumin [Mass/Vol] 3.2 g/dL Normal 3.2-5.0 [facility] Comment on above: Order Comment: Speci men Type: BLOOD SPECIMEN Ordering Facility: [facility] Address: [address] [place] [address] Performed By: #### 3 298-7, 30800-3, 5643-2 #### [facility] CLIA [id number] [address] [place] [address] [place] ALP [Catalytic activity/Vol] 50 U/L Normal 45-117 [facility] Comment on above: Order Comment: Speci men Type: BLOOD SPECIMEN Ordering Facility: [facility] Address: [address] [place], [place] [address] Performed By: #### 3 298-7, 17959-9, 5643-2 #### [facility] CLIA [id number] [address] [place] [address] [place] ALT [Catalytic activity/Vol] 16 U/L Normal 13-61 [facility] Comment on above: Order Comment: Speci men Type: BLOOD SPECIMEN Ordering Facility: [facility] Address: [address] [place] [address] Result Comment: Resu lts may be falsely depressed after the administration of Sulfasalazine and/or Sulfapyridine. Performed By: #### 3 298-7, 27229-0, 5643-2 #### [facility] CLIA [id number] [address] [place], [place] [id number] [place] Anion gap [Moles/Vol] 6 mmol/L Normal 5-16 [facility] System Comment on above: Order Comment: Speci men Type: BLOOD SPECIMEN Ordering Facility: [facility] Address: [address] [place] [address] Performed By: #### 3 298-7, 06994-1, 5643-2 #### [facility] CLIA [id number] [address] [place], [place] [id number] [place] AST [Catalytic activity/Vol] 26 U/L Normal 8-34 [facility] Comment on above: Order Comment: Deuce prince Type: BLOOD SPECIMEN Ordering Facility: [facility] Address: [address] [place] [address] Result Comment: Resu lts may be falsely depressed after the administration of Sulfasalazine and/or Sulfapyridine. Performed By: #### 3 298-7, 27474-7, 5643-2 #### [facility] CLIA [id number] [address] [place], [place] [address] [place] Bilirubin [Mass/Vol] 0.2 mg/dL Normal 0.2-1.0 [facility] Comment on above: Order Comment: Arthuri men Type: BLOOD SPECIMEN Ordering Facility: [facility] Address: [address] [place] [address] Performed By: #### 3 298-7, 96978-8, 5643-2 #### [facility] CLIA [id number] [address] [place] [address] [place] Calcium [Mass/Vol] 9.3 mg/dL Normal 8.5-10.5 [facility] Comment on above: Order Comment: Deuce prince Type: BLOOD SPECIMEN Ordering Facility: [facility] Address: [address] [place], [place] [address] Performed By: #### 3 298-7, 39797-4, 5643-2 #### [facility] CLIA [id number] [address] [place], [place] [address] [place] Chloride [Moles/Vol] 106 mmol/L Normal 98-107 [facility] Comment on above: Order Comment: Speci men Type: BLOOD SPECIMEN Ordering Facility: [facility] Address: [address] [place] [address] Performed By: #### 3 298-7, 07646-6, 5643-2 #### [facility] CLIA [id number] [address] [place], [place] [address] [place] CO2 [Moles/Vol] 26 mmol/L Normal 21-32 [facility] Comment on above: Order Comment: Speci men Type: BLOOD SPECIMEN Ordering Facility: [facility] Address: [address] [place] [address] Performed By: #### 3 298-7, 93216-7, 5643-2 #### [facility] CLIA [id number] [address] [place], [place] [address] [place] Creatinine [Mass/Vol] 0.94 mg/dL Normal 0.50-1.40 [facility] Comment on above: Order Comment: Speci men Type: BLOOD SPECIMEN Ordering Facility: [facility] Address: [address] [place], [place] [address] Result Comment: Jennifer ents receiving either N-Acetylcysteine (NAC) or Metamizole prior to venipuncture, may have falsely depressed results. Performed By: #### 3 298-7, 55524-8, 5643-2 #### [facility] CLIA [id number] [address] [place], [place] [address] [place] Creatinine and Glomerular filtration rate.predicted panel (S/P/Bld) 106 mL/min/1.73m??? Normal >=60 [facility] Comment on above: Order Comment: Speci men Type: BLOOD SPECIMEN Ordering Facility: [facility] Address: [address] [place] [address] Result Comment: Shanika mated Glomerular Filtration Rate (eGFR) is calculated using the 2020 CKD-EPI creatinine equation. This equation utilizes serum creatinine, sex, and age as parameters. The creatinine assay has traceable calibration to isotope dilution-mass spectrometry. Refer to KDIGO guidelines for clinical interpretation. In patients with unstable renal function, e.g. those with acute kidney injury, the eGFR may not accurately reflect actual GFR. Performed By: #### 3 298-7, 16874-6, 5643-2 #### [facility] CLIA [id number] [address] [place] [address] [place] Glucose [Mass/Vol] 96 mg/dL Normal 70-100 [facility] Comment on above: Order Comment: Deuce prince Type: BLOOD SPECIMEN Ordering Facility: [facility] Address: [address] [place] [address] Result Comment: The [place] Diabetes [employer] (ADA) provides guidance for cutoff values for fasting glucose and random glucose. The ADA defines fasting as no caloric intake for at least 8 hours. Fasting plasma glucose results between 100 to 125 mg/dL indicate increased risk for diabetes (prediabetes). Fasting plasma glucose results greater than or equal to 126 mg/dL meet the criteria for diagnosis of diabetes. In the absence of unequivocal hyperglycemia, results should be confirmed by repeat testing. In a patient with classic symptoms of hyperglycemia or hyperglycemic crisis, random plasma glucose results greater than or equal to 200 mg/dL meet the criteria for diagnosis of diabetes. Reference: Standards of Medical Care in Diabetes 2016, [place] [employer]. Diabetes Care. 2016.39(Suppl 1). Results may be falsely elevated after the administration of Sulfapyridine. Results may be falsely depressed after the administration of Sulfasalazine. Performed By: #### 3 298-7, 91175-2, 5643-2 #### [facility] CLIA [id number] [address] [place], [place] [address] [place] Potassium [Moles/Vol] 3.8 mmol/L Normal 3.5-5.1 [facility] Comment on above: Order Comment: Deuce prince Type: BLOOD SPECIMEN Ordering Facility: [facility] Address: [address] [id number] Performed By: #### 3 298-7, 27236-9, 5643-2 #### [facility] CLIA [id number] [address] [place], [place] [address] [place] Protein [Mass/Vol] 6.0 g/dL Normal 6.0-8.5 [facility] Comment on above: Order Comment: Speci men Type: BLOOD SPECIMEN Ordering Facility: [facility] Address: [address] [place] [address] Performed By: #### 3 298-7, 88400-5, 5643-2 #### [facility] CLIA [id number] [address] [place], [place] [address] [place] Sodium [Moles/Vol] 138 mmol/L Normal 136-145 [facility] Comment on above: Order Comment: Speci men Type: BLOOD SPECIMEN Ordering Facility: [facility] Address: [address] [place] [address] Performed By: #### 3 298-7, 91238-3, 5643-2 #### [facility] CLIA [id number] [address] [place], [place] [address] [place] Urea nitrogen [Mass/Vol] 10 mg/dL Normal 7-26 [facility] Comment on above: Order Comment: Speci men Type: BLOOD SPECIMEN Ordering Facility: [facility] Address: [facility] [place] [address] Performed By: #### 3 298-7, 98030-2, 5643-2 #### [facility] CLIA [id number] [address] [place], [place] [address] [place] Magnesium SerPl-mCncon 03-28 Magnesium [Mass/Vol] 2.1 mg/dL Normal 1.6-2.6 [facility] Comment on above: Order Comment: Speci men Type: BLOOD SPECIMEN Ordering Facility: [facility] Address: [address] [place] [address] Performed By: #### 3 298-7, 49668-5, 5643-2 #### [facility] CLIA [id number] [place] CBC panel Auto (Bld)on 03-27 Erythrocyte distribution width (RBC) [Ratio] 14.0 % Normal 11.5-15.0 [facility] Comment on above: Order Comment: Speci men Type: BLOOD SPECIMENOrdering Facility: [facility] Address: [address] [place] [address] Performed By: #### 5 8410-2 ####[facility]IA [id number] [address] [place] Hematocrit (Bld) [Volume fraction] 36.6 % Low 39.0-51.0 [facility] Comment on above: Order Comment: Speci men Type: BLOOD SPECIMENOrdering Facility: [facility] Address: [address] [place] [address] Performed By: #### 5 8410-2 ####[facility]ORY[facility]IA [id number] [address] Hemoglobin (Bld) [Mass/Vol] 12.8 g/dL Low 13.0-17.0 [facility] Comment on above: Order Comment: Speci men Type: BLOOD SPECIMENOrdering Facility: [facility] Address: [address] [place] [address] Performed By: #### 5 8410-2 ####[facility]ORYCLIA [id number] [place] [address] [place] MCH (RBC) [Entitic mass] 30.4 pg Normal 26.0-34.0 [facility] Comment on above: Order Comment: Speci men Type: BLOOD SPECIMENOrdering Facility: [facility] Address: [address] [place] [address] Performed By: #### 5 8410-2 ####[facility]ORYCLIA [id number] [address] [place] MCHC (RBC) [Mass/Vol] 35.0 g/dL Normal 30.5-36.0 [facility] Comment on above: Order Comment: Speci men Type: BLOOD SPECIMENOrdering Facility: [facility] Address: [address] [place] [address] Performed By: #### 5 8410-2 ####[facility]ORY[facility]IA [id number] [address] [place] MCV (RBC) [Entitic vol] 86.9 fL Normal 80.0-100.0 M [facility] Comment on above: Order Comment: Speci men Type: BLOOD SPECIMENOrdering Facility: [facility] Address: [address] [place] [address] Performed By: #### 5 8410-2 ####[facility]ORYCLIA [id number] [place] [address] [place] Nucleated RBC (Bld) [#/Vol] 10*3/uL Normal <0.01 [facility] Comment on above: Order Comment: Speci men Type: BLOOD SPECIMENOrdering Facility: [facility] Address: [address] [place] [address] Performed By: #### 5 8410-2 ####[facility]ORYCLIA [id number] [place] [address] [place] Platelet mean volume (Bld) [Entitic vol] 8.0 fL Low 9.0-12.7 [facility] Comment on above: Order Comment: Speci men Type: BLOOD SPECIMENOrdering Facility: [facility] Address: [address] [place] [address] Performed By: #### 5 8410-2 ####[facility]ORYCLIA [id number] [address] [place] Platelets (Bld) [#/Vol] 255 10*3/uL Normal 150-400 [facility] Comment on above: Order Comment: Speci men Type: BLOOD SPECIMENOrdering Facility: [facility] Address: [address] [place] [address] Performed By: #### 5 8410-2 ####[facility]ORYCLIA [id number] [address] [place] RBC (Bld) [#/Vol] 4.21 10*6/uL Normal 4.20-6.00 [facility] Comment on above: Order Comment: Speci men Type: BLOOD SPECIMENOrdering Facility: [facility] Address: [address] [place] [address] Performed By: #### 5 8410-2 ####[facility]ORYCLIA [id number] [address] WBC (Bld) [#/Vol] 5.75 10*3/uL Normal 3.70-11.00 [facility] Comment on above: Order Comment: Speci men Type: BLOOD SPECIMENOrdering Facility: [facility] Address: [address] [place] [address] Performed By: #### 5 8410-2 ####[facility]ORYCLIA [id number] [address] [place] CK SerPl-cCncon 03-27-2024 CK [Catalytic activity/Vol] 663 U/L High 26-192 [facility] Comment on above: Order Comment: Speci men Type: BLOOD SPECIMEN Ordering Facility: [facility] Address: [address] [place] [address] Performed By: #### 5 8410-2 #### [facility] CLIA [id number] [facility] [id number] [facility] [place] CONSULTon 03-27-2024 CONSULT HNO ID: [id number] Author: RANJEET EDMONDSON, PhD Service: Psychology Author Type: Psychologist Type: Consults Filed: 03/27/2024 12:44 Note Text: PSYCHOLOGY INITIAL CONSULT NOTE SERVICE DATE: 03/27/2024 REASON FOR CONSULT: Overdose with suicide attempt. REQUESTING PHYSICIAN: Dr Mayo Smith Mr. Vaughn is a 39 year old male who presents for overdose on Xanax with suicide intention. PAST MEDICAL HISTORY Diagnosis Date Asthma EXERCISE INDUCED GERD (gastroesophageal reflux disease) Nightmares FRANCISCO (obstructive sleep apnea) Psychiatric disorder BIPOLAR; SCHIZOAFFECTIVE D/O PAST SURGICAL HISTORY Procedure Laterality Date PAST SURGICAL HISTORY OF wisdom teeth FAMILY HISTORY Problem Relation Age of Onset No Known Problems Mother Cancer Father skin Social History Tobacco Use Smoking status: Every Day Current packs/day: 0.20 Types: Cigarettes Smokeless tobacco: Never Vaping Use Vaping status: current everyday user Substance Use Topics Alcohol use: No Drug use: Yes Types: Marijuana Comment: daily clonazePAM (KLONOPIN) 0.5 mg tablet, , Disp: , Rfl: gabapentin (NEURONTIN) 600 mg tablet, Take 1 tablet by mouth three times a day. (Patient not taking: Reported on 12/22/2023), Disp: , Rfl: omeprazole (PRILOSEC) 20 mg capsule, Take 1 capsule by mouth two times a day. (Patient not taking: Reported on 12/22/2023), Disp: 60 capsule, Rfl: 11 famotidine (PEPCID) 20 mg tablet, Take 1 tablet by mouth two times a day as needed (acid reflux). (Patient not taking: Reported on 08/11/2023), Disp: 60 tablet, Rfl: 3 Mirtazapine 45 mg disintegrating tablet, , Disp: , Rfl: prazosin (MINIPRESS) 2 mg cap, Take 2 mg by mouth once daily. (Patient not taking: Reported on 12/22/2023), Disp: , Rfl: Current Facility-Administered Medications Medication Dose Route Frequency acetaminophen 650 mg tab(s) (TYLENOL) 650 mg ORAL q 6 H PRN NaCl 0.9% iv flush bag 20 mL INTRAVENOUS PRN Allergies As of Date: 03/26/2024 (No Known Allergies) Fully Assessed 03/26/2024 HISTORY OF ILLNESS: I reviewed the patient's records. He overdosed on Xanax with an attempt to end his life. The records indicated that he was at that facility for rehab last Wednesday. Since then he had been at multiple emergency rooms. He had been noncompliant with medications. He has a history of a suicide attempt. He sees a psychiatrist at the counseling center in [facility]. INTERVIEW RESULTS: During the interview the patient speaks very rapidly. He told me he was a black man. His comments were out of context. The records indicated that he had made multiple delusional comments of prior to my interview with him. His mood was manic. He tested positive for cannabis and benzodiazepines. He told me he was hungry. The one-to-one recapper informed me that he had rather large lunch. The patient needed to calm down and said that Ativan or Klonopin, preferably Klonopin, helped him calm down. The patient was difficult to interrupt. His speech was not only rapid and overproductive, but was disorganized with flight of ideas. I spoke to the behavioral health coordinator who informed me that she was not that she went to the counseling center. They felt he needed to be hospitalized in an inpatient psychiatric setting considering his current circumstances. Objective The patient attempted suicide on Xanax. He has a history of severe mental illness. He has been off his medications. Currently he presents with a manic mood. His conversation is disorganized. The patient would not be able to care for her and his basic physical needs in the community. Considering the reasons for his admission, suicide attempt, the patient constitutes a risk of harm to himself. The patient is in need of inpatient psychiatric treatment. DATA: Diagnostic tests reviewed for today's visit: CBC, Coags, BMP, Mg, Phos Recent Labs 03/27/24 0950 03/26/24 1522 WBC 5.75 6.28 HB 12.8* 11.9* HCT 36.6* 34.7* PLT 255 245 NA 140 142 K 4.0 4.3 CHLOR 107 106 CO2 26 30 BUN 16 22 CREAT 0.93 1.46* GLUC 140* 94 CA 9.7 9.3 MG 1.7 -- CONCLUSIONS/RECOMMENDAT IONS: Diagnosis: Schizoaffective disorder bipolar type. The patient will be pink slipped to an inpatient psychiatric facility. The nurse in charge of the unit is in touch with the physician in order to see if a as needed would assist in decreasing the patient's min. SIGNATURE: Ranjeet Mitchell, PhD PATIENT NAME: Elkin Vaughn DATE: March 27, 2024 TIME: 12:[address] [facility] Comprehensive metabolic 2000 panelon 03-27-2024 Albumin [Mass/Vol] 3.3 g/dL Normal 3.2-5.0 [facility] Comment on above: Order Comment: Speci men Type: BLOOD SPECIMENOrdering Facility: [facility] Address: [address] [place] [address] [place] [address] Performed By: #### 2 0703-8, 32587-1, 2157-6, 3040-3, 2777-1, 2731-8, 3024-7, 3016-3 ####[facility]ORYCLIA [id number] [place] [id number] [place] ALP [Catalytic activity/Vol] 50 U/L Normal 45-117 [facility] Comment on above: Order Comment: Speci men Type: BLOOD SPECIMENOrdering Facility: [facility] Address: [address] [place] [address] Performed By: #### 2 4323-8, 01130-5, 2157-6, 3040-3, 2777-1, 2731-8, 3024-7, 3016-3 ####[facility]ORYCLIA [id number] [place] [id number] [place] [facility] ALT [Catalytic activity/Vol] 16 U/L Normal 13-61 [facility] Comment on above: Order Comment: Speci men Type: BLOOD SPECIMENOrdering Facility: [facility] Address: [address] [place] [address] Result Comment: Resu lts may be falsely depressed after the administration of Sulfasalazine and/or Sulfapyridine. Performed By: #### 2 4323-8, 15759-8, 7-6, 3040-3, 2777-1, 2731-8, 3024-7, 3016-3 ####[facility]ORYCLIA [id number] [place] [id number] [place] [facility] Anion gap [Moles/Vol] 7 mmol/L Normal 5-16 [facility] Comment on above: Order Comment: Speci men Type: BLOOD SPECIMENOrdering Facility: [facility] Address: [address] [place] [address] Performed By: #### 2 4323-8, 88067-6, 2157-6, 3040-3, 2777-1, 2731-8, 3024-7, 3016-3 ####[facility]ORYCLIA [id number] [place] [address] [place] AST [Catalytic activity/Vol] 23 U/L Normal 8-34 [facility] Comment on above: Order Comment: Speci men Type: BLOOD SPECIMENOrdering Facility: [facility] Address: [address] [place] [address] Result Comment: Resu lts may be falsely depressed after the administration of Sulfasalazine and/or Sulfapyridine. Performed By: #### 2 4323-8, 56534-7, 2157-6, 3040-3, 2777-1, 2731-8, 3024-7, 3016-3 ####[facility]ORYCLIA [id number] [place] [address] [place] Bilirubin [Mass/Vol] 0.3 mg/dL Normal 0.2-1.0 [facility] Comment on above: Order Comment: Speci men Type: BLOOD SPECIMENOrdering Facility: [facility] Address: [address] [place] [address] Performed By: #### 2 4323-8, 00335-0, 7-6, 3040-3, 2777-1, 2731-8, 3024-7, 3016-3 ####[facility]ORYCLIA [id number] [place] [id number] [place] Calcium [Mass/Vol] 9.7 mg/dL Normal 8.5-10.5 [facility] Comment on above: Order Comment: Speci men Type: BLOOD SPECIMENOrdering Facility: [facility] Address: [address] [place] [address] Performed By: #### 2 4323-8, 37439-0, 2157-6, 3040-3, 2777-1, 2731-8, 3024-7, 3016-3 ####[facility]ORYCLIA [id number] [place] [address] [place] Chloride [Moles/Vol] 107 mmol/L Normal 98-107 [facility] Comment on above: Order Comment: Speci men Type: BLOOD SPECIMENOrdering Facility: [facility] Address: [address] [place] [address] Performed By: #### 2 4323-8, 40827-0, 2157-6, 3040-3, 2777-1, 2731-8, 3024-7, 3016-3 ####[facility]ATORYCLIA [id number] [place] [address] [place] CO2 [Moles/Vol] 26 mmol/L Normal 21-32 [facility] Comment on above: Order Comment: Speci men Type: BLOOD SPECIMENOrdering Facility: [facility] Address: [address] [place] [address] Performed By: #### 2 4323-8, 23998-6, 7-6, 3040-3, 2777-1, 2731-8, 3024-7, 3016-3 ####[facility]ORYCLIA [id number] [place] [id number] [place] Creatinine [Mass/Vol] 0.93 mg/dL Normal 0.50-1.40 [facility] Comment on above: Order Comment: Speci men Type: BLOOD SPECIMENOrdering Facility: [facility] Address: [address] [place] [address] Result Comment: Jennifer ents receiving either N-Acetylcysteine (NAC) or Metamizole prior to venipuncture, may have falsely depressed results. Performed By: #### 2 4323-8, 81245-0, 7-6, 3040-3, 2777-1, 2731-8, 3024-7, 3016-3 ####[facility]ATORYCLIA [id number] [place] [id number] [place] Creatinine and Glomerular filtration rate.predicted panel (S/P/Bld) 107 mL/min/1.73m??? Normal >=60 [facility] Comment on above: Order Comment: Speci men Type: BLOOD SPECIMENOrdering Facility: [facility] Address: [address] [place] [address] Result Comment: Shanika mated Glomerular Filtration Rate (eGFR) is calculated using the 2021 CKD-EPI creatinine equation. This equation utilizes serum creatinine, sex, and age as parameters. The creatinine assay has traceable calibration to isotope dilution-mass spectrometry. Refer to KDIGO guidelines for clinical interpretation. In patients with unstable renal function, e.g. those with acute kidney injury, the eGFR may not accurately reflect actual GFR. Performed By: #### 2 4323-8, 84112-0, 2157-6, 3040-3, 2777-1, 2731-8, 3024-7, 3016-3 ####[facility]ATORYCLIA [id number] [place] [id number] [place] Glucose [Mass/Vol] 140 mg/dL High 70-100 [facility] Comment on above: Order Comment: Deuce prince Type: BLOOD SPECIMENOrdering Facility: [facility] Address: [address] [place] [address] Result Comment: The [place] [employer] (ADA) provides guidance for cutoff values for fasting glucose and random glucose. The ADA defines fasting as no caloric intake for at least 8 hours. Fasting plasma glucose results between 100 to 125 mg/dL indicate increased risk for diabetes (prediabetes). Fasting plasma glucose results greater than or equal to 126 mg/dL meet the criteria for diagnosis of diabetes. In the absence of unequivocal hyperglycemia, results should be confirmed by repeat testing. In a patient with classic symptoms of hyperglycemia or hyperglycemic crisis, random plasma glucose results greater than or equal to 200 mg/dL meet the criteria for diagnosis of diabetes. Reference: Standards of Medical Care in Diabetes 2016, [place] [employer]. Diabetes Care. 2016.39(Suppl 1). Results may be falsely elevated after the administration of Sulfapyridine. Results may be falsely depressed after the administration of Sulfasalazine. Performed By: #### 2 4323-8, 16444-0, 2157-6, 3040-3, 2777-1, 2731-8, 3024-7, 3016-3 ####[facility]ORATORYCLIA [id number] [place] [address] [place] Potassium [Moles/Vol] 4.0 mmol/L Normal 3.5-5.1 [facility] Comment on above: Order Comment: Arthuri men Type: BLOOD SPECIMENOrdering Facility: [facility] Address: [address] [place] [address] Performed By: #### 2 4323-8, 04433-4, 2157-6, 3040-3, 2777-1, 2731-8, 3024-7, 3016-3 ####[facility] LABORATORYCLIA [id number] [place] [address] [place] Protein [Mass/Vol] 6.1 g/dL Normal 6.0-8.5 [facility] Comment on above: Order Comment: Speci men Type: BLOOD SPECIMENOrdering Facility: [facility] Address: [address] [place], [place] [address] [place] [address] Performed By: #### 2 4323-8, 16416-0, 2157-6, 3040-3, 2777-1, 2731-8, 3024-7, 3016-3 ####[facility] LABORATORYCLIA [id number] [place] [id number] [place] Sodium [Moles/Vol] 140 mmol/L Normal 136-145 [facility] Comment on above: Order Comment: Speci men Type: BLOOD SPECIMENOrdering Facility: [facility] Address: [address] [place] [address] Performed By: #### 2 4323-8, 08360-1, 2157-6, 3040-3, 2777-1, 2731-8, 3024-7, 3016-3 ####[facility] LABORATORYCLIA [id number] [place] [id number] [place] Urea nitrogen [Mass/Vol] 16 mg/dL Normal 7-26 [facility] Comment on above: Order Comment: Speci men Type: BLOOD SPECIMENOrdering Facility: [facility] Address: [address] [place] [address] Performed By: #### 2 4323-8, 55523-0, 2157-6, 3040-3, 2777-1, 2731-8, 3024-7, 3016-3 ####[facility] LABORATORYCLIA [id number] [place] [address] [facility] ED PROV NOTEon 03-27-2024 ED PROV NOTE HNO ID: [id number] Author: RIO PRINCE MD Service: Emergency Medicine Author Type: Physician Type: ED Provider Notes Filed: 03/27/2024 00:39 Note Text: ED CONTINUATION OF CARE NOTE Code Status: Full Code Assumed care from: Dr Waterman Presentation / Findings / Interventions / Plan / Items to Follow Up: Patient was seen initially by prior ED physician for suspected intentional benzodiazepine overdose. Patient was quite lethargic in the ED. He remained lethargic even after 6-hour observation and head CT was then performed to ensure there was no intracranial injury, and that was negative. Patient still remains lethargic despite many hours of ED observation. The rest of his medical clearance testing was unremarkable except for positive benzodiazepines and cannabinoids in his drug screen. He became briefly hypoxic in the ED dropping to the high 80s whilesleeping, this responded well to oxygen at 2 L. I did check a VBG which was negative for any hypercapnia. Case was discussed with ICU who feels he is stable for telemetry observation. Hospitalist will admit. ED Course as of 03/27/2442 Rio Prince's Documentation Sun Mar 26, 2024 2016 Patient is been reassessed per poison control recommendations. He is quite sleepy. He does arouse but is still lethargic. I appreciate no trauma markings. As a precaution I will CT his head. Mon Mar 27, 2024 0035 Patient still arousable, but lethargic, mumbling answers. Psych triage unable to assess. Protecting his airway. 0038 Case discussed with ICU nurse practitioner, Patrick, agrees patient will be stable for telemetry 0042 Dr Paz will admit, request CDU with telemetry Clinical Impressions as of 03/27/24 0043 Intentional benzodiazepine overdose, initial encounter (HCC) Hypoxia Marijuana use Bipolar 1 disorder (HCC) Schizoaffective disorder, unspecified type (HCC) Medical Decision Making SIGNATURE: Rio Prince MD PATIENT NAME: Elkin Vaughn DATE: March 27, 2024 TIME: 12:25 AM PAGER/CONTACT #: RIO PRINCE 03/27/[address] [facility] Gas and Carbon monoxide pane l (BldV)on 03-27-2024 Base excess Calc (BldV) [Moles/Vol] 1 mmol/L Normal 0-2 [facility] Comment on above: Order Comment: Speci men Type: VENOUS BLOOD SPECIMENOrdering Facility: [facility] Address: [address] [place] [address] Performed By: #### 2 4344-4 ####[facility]IR[facility]ORY THERAPYCLIA [id number] [address] [place] Body temperature 98.6 [degF] Normal [facility] Comment on above: Order Comment: Speci men Type: VENOUS BLOOD SPECIMENOrdering Facility: [facility] Address: [address] [place] [address] Performed By: #### 2 4344-4 ####[facility] RESPIRATORY THERAPYCLIA [id number] [place] [address] [place] Calcium.ionized (Bld) [Mass/Vol] 1.06 mmol/L Low 1.08-1.30 [facility] Comment on above: Order Comment: Speci men Type: VENOUS BLOOD SPECIMENOrdering Facility: [facility] Address: [address] [place] [address] Performed By: #### 2 4344-4 ####[facility] RES[facility] THERAPYCLIA [id number] [place] [address] [place] Carboxyhemoglobin (BldV) [Mass fraction] 2.3 % High 0.0-2.0 [facility] Comment on above: Order Comment: Speci men Type: VENOUS BLOOD SPECIMENOrdering Facility: [facility] Address: [address] [place] [address] Result Comment: Carb oxyhemoglobin Reference Range for Smokers: 2.0-8.0% Performed By: #### 2 4344-4 ####[facility] THERAPYCLIA [id number] [place] [address] [place] CO2 (BldV) [Partial pressure] 39 mm[Hg] Low 42-55 [facility] Comment on above: Order Comment: Speci men Type: VENOUS BLOOD SPECIMENOrdering Facility: [facility] Address: [address] [place] [address] Performed By: #### 2 4344-4 ####[facility]AT[facility] THERAPYCLIA [id number] [place] [id number] [place] Glucose [Mass/Vol] 93 mg/dL Normal 60-105 [facility] Comment on above: Order Comment: Speci men Type: VENOUS BLOOD SPECIMENOrdering Facility: [facility] Address: [address] [place] [address] Performed By: #### 2 4344-4 ####[facility] THERAPYCLIA [id number] [place] [address] [place] HCO3 (Bld) [Moles/Vol] 25 mmol/L Normal 24-28 [facility] Comment on above: Order Comment: Speci men Type: VENOUS BLOOD SPECIMENOrdering Facility: [facility] Address: [address] [place] [address] Performed By: #### 2 4344-4 ####[facility] THERAPYCLIA [id number] [place] [address] [place] Hemoglobin (Bld) [Mass/Vol] 14.4 g/dL Normal 13.0-17.0 [facility] Comment on above: Order Comment: Speci men Type: VENOUS BLOOD SPECIMENOrdering Facility: [facility] Address: [address] [place] [address] Performed By: #### 2 4344-4 ####[facility] THERAPYCLIA [id number] [place] [address] [place] Lactate [Moles/Vol] 0.9 mmol/L Normal 0.5-2.2 [facility] Comment on above: Order Comment: Speci men Type: VENOUS BLOOD SPECIMENOrdering Facility: [facility] Address: [address] [place] [address] Performed By: #### 2 4344-4 ####[facility] THERAPYCLIA [id number] [place] [address] [place] Methemoglobin (Bld) [Mass fraction] 0.3 % Normal 0.0-1.5 [facility] Comment on above: Order Comment: Speci men Type: VENOUS BLOOD SPECIMENOrdering Facility: [facility] Address: [address] [place] [address] Performed By: #### 2 4344-4 ####[facility] THERAPYCLIA [id number] [place] [address] [place] O2 THERAPY Normal [facility] Comment on above: Order Comment: Speci men Type: VENOUS BLOOD SPECIMENOrdering Facility: [facility] Address: [address] [place] [address] Result Comment: NC = Nasal Cannula NC = Nasal Cannula 2L Performed By: #### 2 4344-4 ####[facility] THERAPYCLIA [id number] [address] [place] Oxygen (BldV) [Partial pressure] 44 mm[Hg] Normal 35-45 [facility] Comment on above: Order Comment: Speci men Type: VENOUS BLOOD SPECIMENOrdering Facility: [facility] Address: [address] [place] [address] Performed By: #### 2 4344-4 ####[facility] THERAPYCLIA [id number] [address] [place] Oxyhemoglobin (BldV) [Mass fraction] 84 % Normal 4-98 [facility] Comment on above: Order Comment: Speci men Type: VENOUS BLOOD SPECIMENOrdering Facility: [facility] Address: [address] [place] [address] Performed By: #### 2 4344-4 ####[facility] THERAPYCLIA [id number] [place] [address] [place] pH (BldV) 7.43 [pH] High 7.32-7.42 [facility] Comment on above: Order Comment: Speci men Type: VENOUS BLOOD SPECIMENOrdering Facility: [facility] Address: [address] [place] [address] Performed By: #### 2 4344-4 ####[facility] THERAPYCLIA [id number] [address] STATES OF [facility] Potassium [Moles/Vol] 4.1 mmol/L Normal 2.5-6.0 [facility] Comment on above: Order Comment: Speci men Type: VENOUS BLOOD SPECIMENOrdering Facility: [facility] Address: [address] [place] [address] Performed By: #### 2 4344-4 ####[facility] RES[facility] THERAPYCLIA [id number] [address] Sodium [Moles/Vol] 138 mmol/L Normal 136-144 [facility] Comment on above: Order Comment: Speci men Type: VENOUS BLOOD SPECIMENOrdering Facility: [facility] Address: [address] [place] [address] Performed By: #### 2 4344-4 ####[facility] RES[facility] THERAPYCLIA [id number] [address] HISTORY PHYSICALon HISTORY PHYSICAL HNO ID: [id number] Author: DARCY PAZ MD Service: Hospital Medicine Author Type: Physician Type: H&P Filed: 03/27/2024 02:11 Note Text: HISTORY AND PHYSICAL EXAMINATION SERVICE DATE: 03/27/2024 SERVICE TIME: 2:02 AM PRIMARY CARE PHYSICIAN: Alan Castillo MD CHIEF COMPLAINT: Benzo OD HPI: This is a 39 year old male who presents with a Benzo OD, quite lethargic and unarousable. He took marijuana and benzos along with alcohol -with the intent for self harm. He has been up a few minutes at a time and did spoke very briefly. CT scan, labs and VBF were negative- he will admit to tele with Benzo/ETOH ingestion. Poison control has been notified. FUNCTIONAL STATUS: Independent PAST MEDICAL HISTORY Diagnosis Date Asthma EXERCISE INDUCED GERD (gastroesophageal reflux disease) Nightmares FRANCISCO (obstructive sleep apnea) Psychiatric disorder BIPOLAR; SCHIZOAFFECTIVE D/O PAST SURGICAL HISTORY Procedure Laterality Date PAST SURGICAL HISTORY OF wisdom teeth FAMILY HISTORY Problem Relation Age of Onset No Known Problems Mother Cancer Father skin Social History Tobacco Use Smoking status: Every Day Current packs/day: 0.20 Types: Cigarettes Smokeless tobacco: Never Vaping Use Vaping status: current everyday user Substance Use Topics Alcohol use: No Drug use: Yes Types: Marijuana Comment: daily clonazePAM (KLONOPIN) 0.5 mg tablet, , Disp: , Rfl: gabapentin (NEURONTIN) 600 mg tablet, Take 1 tablet by mouth three times a day. (Patient not taking: Reported on 12/22/2023), Disp: , Rfl: omeprazole (PRILOSEC) 20 mg capsule, Take 1 capsule by mouth two times a day. (Patient not taking: Reported on 12/22/2023), Disp: 60 capsule, Rfl: 11 famotidine (PEPCID) 20 mg tablet, Take 1 tablet by mouth two times a day as needed (acid reflux). (Patient not taking: Reported on 08/11/2023), Disp: 60 tablet, Rfl: 3 Mirtazapine 45 mg disintegrating tablet, , Disp: , Rfl: prazosin (MINIPRESS) 2 mg cap, Take 2 mg by mouth once daily. (Patient not taking: Reported on 12/22/2023), Disp: , Rfl: ALLERGIES No Known Allergies Review of Systems Review of Systems Unable to perform ROS: Patient unresponsive OBJECTIVE: PHYSICAL EXAM: Physical Exam Performed: Physical Exam Vitals and nursing note reviewed. Constitutional: General: He is not in acute distress. HENT: Head: Normocephalic and atraumatic. Cardiovascular: Rate and Rhythm: Tachycardia present. Rhythm irregular. Pulmonary: Effort: No respiratory distress. Musculoskeletal: General: No swelling. Cervical back: No rigidity. Skin: Coloration: Skin is not jaundiced. Neurological: Motor: No weakness. BP 112/77 Pulse 78 Temp (Src) 98 (Oral) Resp 14 Wt 200 lb (90.7kg) SpO2 99% O2 Therapy: Room Air, Liters: 2 DATA: No intake or output data in the 24 hours ending 03/27/24 0202 No current facility-administered medications for this encounter. Recent Results (from the past 36 hour(s)) COMPLETE BLOOD COUNT Collection Time: 03/26/24 3:22 PM Result Value Ref Range WBC 6.28 3.70 - 11.00 k/uL RBC 3.90 (L) 4.20 - 6.00 m/uL Hemoglobin 11.9 (L) 13.0 - 17.0 g/dL Hematocrit 34.7 (L) 39.0 - 51.0 % MCV 89.0 80.0 - 100.0 fL MCH 30.5 26.0 - 34.0 pg MCHC 34.3 30.5 - 36.0 g/dL RDW-CV 14.2 11.5 - 15.0 % Platelet Count 245 150 - 400 k/uL MPV 8.1 (L) 9.0 - 12.7 fL Absolute nRBC <0.01 <0.01 k/uL COMPREHENSIVE METABOLIC PANEL Collection Time: 03/26/24 3:22 PM Result Value Ref Range Protein, Total 6.1 6.0 - 8.5 g/dL Albumin 3.2 3.2 - 5.0 g/dL Calcium, Total 9.3 8.5 - 10.5 mg/dL Bilirubin, Total 0.2 0.2 - 1.0 mg/dL Alkaline Phosphatase 50 45 - 117 U/L AST 18 8 - 34 U/L ALT 16 13 - 61 U/L Glucose 94 70 - 100 mg/dL BUN 22 7 - 26 mg/dL Creatinine 1.46 (H) 0.50 - 1.40 mg/dL Sodium 142 136 - 145 mmol/L Potassium 4.3 3.5 - 5.1 mmol/L Chloride 106 98 - 107 mmol/L CO2 30 21 - 32 mmol/L Anion Gap 6 5 - 16 mmol/L Estimated Glomerular Filtration Rate 62 >=60 mL/min/1.73m? ETHANOL/ALCOHOL Collection Time: 03/26/24 3:22 PM Result Value Ref Range Ethanol <0.003 <0.010 gm/dL ACETAMINOPHEN / TYLENOL Collection Time: 03/26/24 3:22 PM Result Value Ref Range Acetaminophen <2 (L) 10 - 30 ug/mL SALICYLATE Collection Time: 03/26/24 3:22 PM Result Value Ref Range Salicylate <3.0 2.8 - 20.0 mg/dL GLUCOSE, BLOOD (POC) Collection Time: 03/26/24 3:34 PM Result Value Ref Range Glucose, Point of Care 94 74 - 99 mg/dL URINALYSIS WITH MICROSCOPIC, REFLEX CULTURE Collection Time: 03/26/24 4:48 PM Specimen: Urine, Midstream Result Value Ref Range Color Yellow Yellow Clarity Clear Clear Glucose, Urine Negative Negative Bilirubin, Urine Negative Negative Ketones, Urine Negative Negative Specific [place], Ur 1.020 1.005 - 1.030 Hemoglobin/Blood,Ur Negative Negative pH, Urine 6.0 5.0 - 8.0 Protein, Urine Negative Negative Urobilinogen Negative Negative Nitrites N (more content not included)... Normal [facility] Lipase SerPl-cCncon 03-27-20 24 Lipase [Catalytic activity/Vol] 32 U/L Normal 12-60 [facility] Comment on above: Order Comment: Speci men Type: BLOOD SPECIMEN [facility] Address: [address] [place] [address] Performed By: #### 5 8410-2 #### [facility] CLIA [id number] [address] [place], [place] [address] [place] Magnesium SerPl-mCncon 03-27 Magnesium [Mass/Vol] 1.7 mg/dL Normal 1.6-2.6 [facility] Comment on above: Order Comment: Speci men Type: BLOOD SPECIMEN [facility] Address: [address] [place] [address] Performed By: #### 5 8410-2 #### [facility] CLIA [id number] [address] [place], [place] [address] [place] PTH-Intact SerPl-mCncon 03-06 Parathyrin.intact [Mass/Vol] 32 pg/mL Normal 14-72 [facility] Comment on above: Order Comment: Speci men Type: BLOOD SPECIMEN [facility] Address: [address] [place] [address] Performed By: #### 5 8410-2 #### [facility] CLIA [id number] [address] [place], [place] [address] [place] Phosphate SerPl-mCncon 03-27 Phosphate [Mass/Vol] 3.6 mg/dL Normal 2.5-4.9 [facility] Comment on above: Order Comment: Speci men Type: BLOOD SPECIMEN [facility] Address: [address] [place] [address] Result Comment: Elev ated m-protein (paraprotein) levels in the serum may be exhibited in patients with monoclonal gammopathies, causing falsely elevated inorganic phosphorus results. Performed By: #### 5 8410-2 #### [facility] CLIA [id number] [address] [place] [address] [place] T4 Free SerPl-mCncon 024 Free T4 [Mass/Vol] 1.3 ng/dL Normal 0.8-1.5 [facility] Comment on above: Order Comment: Deuce prince Type: BLOOD SPECIMEN [facility] Address: [address] [place] [address] Performed By: #### 5 8410-2 #### [facility] CLIA [id number] [address] [place] [address] [place] TSH SerPl-aCncon 03-27-2024 TSH Qn 0.831 m[IU]/L Normal 0.358-3.740 [facility] Comment on above: Order Comment: Deuce prince Type: BLOOD SPECIMEN [facility] Address: [address] [place] [address] Result Comment: 3rd generation ultra sensitive TSH. Performed By: #### 5 8410-2 #### [facility] CLIA [id number] [address] [place] [address] [place] 25(OH)D3 SerPl-mCncon 2023 25-hydroxyvitamin D3 [Mass/Vol] 29.0 ng/mL Low 30.0-100.0 [facility] Comment on above: Order Comment: [facility] Type: BLOOD SPECIMEN [facility] Address: [address] [place] [address] Result Comment: Defi ciency\X09\Less than 20 ng/mL Insufficiency\X09\20 - Less than 30 ng/mL Sufficiency\X09\30 - 100 ng/mL Performed By: #### 4 024-6, 1988-06 #### [facility] CLIA [id number] [address] [place] [address] [place] APAP SerPl-mCncon 03-26-2024 Acetaminophen [Mass/Vol] ug/mL Low 10-30 [facility] Comment on above: Order Comment: Deuce prince Type: BLOOD SPECIMEN [facility] Address: [address] [place] [id number] Result Comment: Toxi c > 50 ug/mL 4 hours post ingestion The Dominguez Barcenas nomogram can be used to estimate the probability of hepatotoxicity via the relationship of plasma acetaminophen concentration to the post ingestion interval. (Bull. Pediatrics. 1975. 55:871 to 876 and Dominguez et al. Arch Animal Control Specialist Med. 1981. 141:380 to 385). Reference ranges and high/low indicator flags are provided as general guidelines only. The treating physician must determine appropriate target levels/dosing based on the specific clinical situation. Performed By: #### 3 298-7, 56851-7, 5643-2 #### [facility] CLIA [id number] [address] [place] [address] [place] CBC panel Auto (Bld)on 03-26 Erythrocyte distribution width (RBC) [Ratio] 14.2 % Normal 11.5-15.0 [facility] Comment on above: Order Comment: Deuce prince Type: BLOOD SPECIMEN [facility] Address: [address] [place] [address] Performed By: #### 5 8410-2 #### [facility] CLIA [id number] [address] [place] [address] [place] Hematocrit (Bld) [Volume fraction] 34.7 % Low 39.0-51.0 [facility] Comment on above: Order Comment: Deuce prnice Type: BLOOD SPECIMEN [facility] Address: [address] [place] [address] Performed By: #### 5 8410-2 #### [facility] CLIA [id number] [address] [place] [address] [place] Hemoglobin (Bld) [Mass/Vol] 11.9 g/dL Low 13.0-17.0 [facility] Comment on above: Order Comment: Deuce prince Type: BLOOD SPECIMEN [facility] Address: [address] [place] [address] Performed By: #### 5 8410-2 #### [facility] CLIA [id number] [address] [place] [address] [place] MCH (RBC) [Entitic mass] 30.5 pg Normal 26.0-34.0 [facility] Comment on above: Order Comment: Speci men Type: BLOOD SPECIMEN [facility] Address: [address] [place] [address] Performed By: #### 5 8410-2 #### [facility] CLIA [id number] [address] [place] [address] [place] MCHC (RBC) [Mass/Vol] 34.3 g/dL Normal 30.5-36.0 [facility] Comment on above: Order Comment: Speci men Type: BLOOD SPECIMEN [facility] Address: [address] [place] [address] Performed By: #### 5 8410-2 #### [facility] CLIA [id number] [address] [place] [address] [facility] MCV (RBC) [Entitic vol] 89.0 fL Normal 80.0-100.0 M [facility] Comment on above: Order Comment: Speci men Type: BLOOD SPECIMEN Order[facility]: [facility] Address: [address] [place] [address] Performed By: #### 5 8410-2 #### [facility] CLIA [id number] [address] [place] [address] [place] Nucleated RBC (Bld) [#/Vol] 10*3/uL Normal <0.01 [facility] Comment on above: Order Comment: Speci men Type: BLOOD SPECIMEN Order[facility]: [facility] Address: [address] [place] [address] Performed By: #### 5 8410-2 #### [facility] CLIA [id number] [address] [place] [address] [place] Platelet mean volume (Bld) [Entitic vol] 8.1 fL Low 9.0-12.7 [facility] Comment on above: Order Comment: Speci men Type: BLOOD SPECIMEN [facility] Address: [address] [place] [address] Performed By: #### 5 8410-2 #### [facility] CLIA [id number] [address] [place] [address] [place] Platelets (Bld) [#/Vol] 245 10*3/uL Normal 150-400 [facility] Comment on above: Order Comment: Speci men Type: BLOOD SPECIMEN Order[facility]: [facility] Address: [address] [place] [address] Performed By: #### 5 8410-2 #### [facility] CLIA [id number] [address] [place] [address] [place] RBC (Bld) [#/Vol] 3.90 10*6/uL Low 4.20-6.00 [facility] Comment on above: Order Comment: Speci men Type: BLOOD SPECIMEN Ordering [facility]: [facility] Address: [address] [place], [place] [address] Performed By: #### 5 8410-2 #### [facility] CLIA [id number] [address] [place], [place] [id number] [place] WBC (Bld) [#/Vol] 6.28 10*3/uL Normal 3.70-11.00 [facility] Comment on above: Order Comment: Speci men Type: BLOOD SPECIMEN Ordering [facility]: [facility] Address: [address] [place] [address] Performed By: #### 5 8410-2 #### [facility] CLIA [id number] [address] [place], [place] [id number] [facility] CT BRAIN WO IVCONon 03-26-[address] BRAIN WO IVCON * * *Final Report* * * DATE OF EXAM: Mar 26 2024 9:59PM [facility] 0504 - CT BRAIN WO IVCON / PROCEDURE REASON: Head trauma, moderate-severe * * * * Physician Interpretation * * * * EXAMINATION: CT CERVICAL SPINE WO IVCON, CT BRAIN WO IVCON CLINICAL HISTORY: Spine fracture, cervical, traumatic (accession [id number]), Head trauma, moderate-severe (accession [id number]) TECHNIQUE: Serial axial unenhanced images were obtained from the vertex to the foramen magnum. Spiral, high resolution axial unenhanced images were obtained from the skull base to the cervicothoracic junction with sagittal and coronal planar reconstructions. Dose-Length Product (DLP): 1105.57 mGy*cm. CT Dose Reduction Employed: Automated exposure control(AEC) and iterative recon COMPARISON: 06/28/[address] RESULT: BRAIN: Post-operative change: None. Acute change: No evidence of an acute infarct or other acute parenchymal process. Hemorrhage: No evidence of acute intracranial hemorrhage. Mass Lesion / Mass Effect: There is no evidence of an intracranial mass or extraaxial fluid collection. No significant mass effect. Chronic change: None apparent. Parenchyma: There is no significant volume loss. Ventricles: The ventricles are within normal limits of size and configuration for age. CERVICAL: Counting reference: Craniocervical junction. Anatomic Variants: None. Alignment: Alignment is anatomic. Craniocervical junction: Craniocervical junction is normal. Osseous structures/fracture: No evidence of a lytic or blastic process in the visualized spine. No evidence of acute or chronic fracture. Cervical soft tissues: The paraspinal soft tissues planes are maintained. Degenerative changes: No significant degenerative changes. IMPRESSION: Head CT: No acute abnormality. Cervical CT: No acute abnormality. Anatomic Variant: None. Assume 7 cervical vertebrae with counting from the craniocervical junction. 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[facility] Transcribe Date/Time: Mar 26 2024 10:31P Dictated by : STACY WALL MD This examination was interpreted and the report reviewed and electronically signed by: STACY WALL MD on Mar 26 2024 10:41PM EST [id number] [facility] CT CERVICAL SPINE WO IVCONon 03-26-2024 CT CERVICAL SPINE WO IVCON * * *Final Report* * * DATE OF EXAM: Mar 26 2024 9:59PM [facility] 0505 - CT CERVICAL SPINE WO IVCON / PROCEDURE REASON: Spine fracture, cervical, traumatic * * * * Physician Interpretation * * * * EXAMINATION: CT CERVICAL SPINE WO IVCON, CT BRAIN WO IVCON CLINICAL HISTORY: Spine fracture, cervical, traumatic (accession [id number]), Head trauma, moderate-severe (accession [id number]) TECHNIQUE: Serial axial unenhanced images were obtained from the vertex to the foramen magnum. Spiral, high resolution axial unenhanced images were obtained from the skull base to the cervicothoracic junction with sagittal and coronal planar reconstructions. Dose-Length Product (DLP): 1105.57 mGy*cm. CT Dose Reduction Employed: Automated exposure control(AEC) and iterative recon COMPARISON: 06/28/[address] RESULT: BRAIN: Post-operative change: None. Acute change: No evidence of an acute infarct or other acute parenchymal process. Hemorrhage: No evidence of acute intracranial hemorrhage. Mass Lesion / Mass Effect: There is no evidence of an intracranial mass or extraaxial fluid collection. No significant mass effect. Chronic change: None apparent. Parenchyma: There is no significant volume loss. Ventricles: The ventricles are within normal limits of size and configuration for age. CERVICAL: Counting reference: Craniocervical junction. Anatomic Variants: None. Alignment: Alignment is anatomic. Craniocervical junction: Craniocervical junction is normal. Osseous structures/fracture: No evidence of a lytic or blastic process in the visualized spine. No evidence of acute or chronic fracture. Cervical soft tissues: The paraspinal soft tissues planes are maintained. Degenerative changes: No significant degenerative changes. IMPRESSION: Head CT: No acute abnormality. Cervical CT: No acute abnormality. Anatomic Variant: None. Assume 7 cervical vertebrae with counting from the craniocervical junction. 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 Comprehensive metabolic 2000 panelon 03-26-2024 Albumin [Mass/Vol] 3.2 g/dL Normal 3.2-5.0 [facility] Comment on above: Order Comment: Speci men Type: BLOOD SPECIMEN Ordering Facility: [facility] Address: [address] [place] [address] Performed By: #### 3 298-7, 55764-0, 7143-2 #### [facility] CLIA [id number] [facility] [place] [address] [place] ALP [Catalytic activity/Vol] 50 U/L Normal 45-117 [facility] Comment on above: Order Comment: Speci men Type: BLOOD SPECIMEN Ordering Facility: [facility] Address: [address] [place] [address] Performed By: #### 3 298-7, 36902-2, 5643-2 #### [facility] CLIA [id number] [address] [place] [address] [place] ALT [Catalytic activity/Vol] 16 U/L Normal 13-61 [facility] Comment on above: Order Comment: Speci men Type: BLOOD SPECIMEN Ordering Facility: [facility] Address: [address] [place] [address] Result Comment: Resu lts may be falsely depressed after the administration of Sulfasalazine and/or Sulfapyridine. Performed By: #### 3 298-7, 47046-3, 5643-2 #### [facility] CLIA [id number] [address] [place] [address] [place] Anion gap [Moles/Vol] 6 mmol/L Normal 5-16 [facility] Comment on above: Order Comment: Speci men Type: BLOOD SPECIMEN Ordering Facility: [facility] Address: [address] [place] [address] Performed By: #### 3 298-7, 82315-3, 5643-2 #### [facility] CLIA [id number] [address] [place] [address] [place] AST [Catalytic activity/Vol] 18 U/L Normal 8-34 [facility] Comment on above: Order Comment: Speci men Type: BLOOD SPECIMEN Ordering Facility: [facility] Address: [address] [place] [address] Result Comment: Resu lts may be falsely depressed after the administration of Sulfasalazine and/or Sulfapyridine. Performed By: #### 3 298-7, 09569-1, 5643-2 #### [facility] CLIA [id number] [address] [place] [address] [place] Bilirubin [Mass/Vol] 0.2 mg/dL Normal 0.2-1.0 [facility] Comment on above: Order Comment: Speci men Type: BLOOD SPECIMEN Ordering Facility: [facility] Address: [address] [place] [address] Performed By: #### 3 298-7, 71662-9, 5643-2 #### [facility] CLIA [id number] [address] [place] [address] [place] Calcium [Mass/Vol] 9.3 mg/dL Normal 8.5-10.5 [facility] Comment on above: Order Comment: Speci men Type: BLOOD SPECIMEN Ordering Facility: [facility] Address: [address] [place] [address] Performed By: #### 3 298-7, 58365-8, 5643-2 #### [facility] CLIA [id number] [address] [place] [address] [place] Chloride [Moles/Vol] 106 mmol/L Normal 98-107 [facility] Comment on above: Order Comment: Speci men Type: BLOOD SPECIMEN Ordering Facility: [facility] Address: [address] [place] [address] Performed By: #### 3 298-7, 41428-9, 5643-2 #### [facility] CLIA [id number] [address] [place] [address] [place] CO2 [Moles/Vol] 30 mmol/L Normal 21-32 [facility] Comment on above: Order Comment: Speci men Type: BLOOD SPECIMEN Ordering Facility: [facility] Address: [address] [place] [address] Performed By: #### 3 298-7, 27895-2, 5643-2 #### [facility] CLIA [id number] [address] [place], [place] [id number] [place] Creatinine [Mass/Vol] 1.46 mg/dL High 0.50-1.40 [facility] Comment on above: Order Comment: Deuce prince Type: BLOOD SPECIMEN Ordering Facility: [facility] Address: [address] [place] [address] Result Comment: Jennifer ents receiving either N-Acetylcysteine (NAC) or Metamizole prior to venipuncture, may have falsely depressed results. Performed By: #### 3 298-7, 68757-3, 5643-2 #### [facility] CLIA [id number] [address] [place] [address] [place] Creatinine and Glomerular filtration rate.predicted panel (S/P/Bld) 62 mL/min/1.73m??? Normal >=60 [facility] Comment on above: Order Comment: Deuce prince Type: BLOOD SPECIMEN Ordering Facility: [facility] Address: [address] [place] [address] Result Comment: Shanika mated Glomerular Filtration Rate (eGFR) is calculated using the 2020 CKD-EPI creatinine equation. This equation utilizes serum creatinine, sex, and age as parameters. The creatinine assay has traceable calibration to isotope dilution-mass spectrometry. Refer to KDIGO guidelines for clinical interpretation. In patients with unstable renal function, e.g. those with acute kidney injury, the eGFR may not accurately reflect actual GFR. Performed By: #### 3 298-7, 37744-3, 5643-2 #### [facility] CLIA [id number] [address] [place], [place] [address] [place] Glucose [Mass/Vol] 94 mg/dL Normal 70-100 [facility] Comment on above: Order Comment: Deuce prince Type: BLOOD SPECIMEN Ordering Facility: [facility] Address: [address] [place] [id number] Result Comment: The [place] [employer] (ADA) provides guidance for cutoff values for fasting glucose and random glucose. The ADA defines fasting as no caloric intake for at least 8 hours. Fasting plasma glucose results between 100 to 125 mg/dL indicate increased risk for diabetes (prediabetes). Fasting plasma glucose results greater than or equal to 126 mg/dL meet the criteria for diagnosis of diabetes. In the absence of unequivocal hyperglycemia, results should be confirmed by repeat testing. In a patient with classic symptoms of hyperglycemia or hyperglycemic crisis, random plasma glucose results greater than or equal to 200 mg/dL meet the criteria for diagnosis of diabetes. Reference: Standards of Medical Care in Diabetes 2016, [place] [employer] Association. Diabetes Care. 2016.39(Suppl 1). Results may be falsely elevated after the administration of Sulfapyridine. Results may be falsely depressed after the administration of Sulfasalazine. Performed By: #### 3 298-7, 29118-9, 5643-2 #### [facility] CLIA [id number] [address] [place] [address] [place] Potassium [Moles/Vol] 4.3 mmol/L Normal 3.5-5.1 [facility] Comment on above: Order Comment: Deuce prince Type: BLOOD SPECIMEN Ordering Facility: [facility] Address: [address] [place] [address] Performed By: #### 3 298-7, 13825-7, 5643-2 #### [facility] CLIA [id number] [address] [place] [address] [place] Protein [Mass/Vol] 6.1 g/dL Normal 6.0-8.5 [facility] Comment on above: Order Comment: Deuce prince Type: BLOOD SPECIMEN Ordering Facility: [facility] Address: [address] [place] [address] Performed By: #### 3 298-7, 01354-9, 5643-2 #### [facility] CLIA [id number] [address] [place], [place] [address] [place] Sodium [Moles/Vol] 142 mmol/L Normal 136-145 [facility] Comment on above: Order Comment: Deuce prince Type: BLOOD SPECIMEN Ordering Facility: [facility] Address: [address] [place] [address] Performed By: #### 3 298-7, 02599-0, 5643-2 #### [facility] CLIA [id number] [address] [place], [place] [address] [place] Urea nitrogen [Mass/Vol] 22 mg/dL Normal 7-26 [facility] Comment on above: Order Comment: Speci men Type: BLOOD SPECIMEN Ordering Facility: [facility] Address: [facility] [place] [address] Performed By: #### 3 298-7, 27867-9, 5643-2 #### [facility] CLIA [id number] [address] [place] [address] [place] ECG COMPLETEon 03-26-2024 ECG COMPLETE Ventricular Rate : 1 00 BPM Atrial Rate : 100 BPM P-R Interval : 130 ms QRS Duration : 96 ms Q-T Interval : 362 ms QTC Calculation(Bazett) : 467 ms Calculated P [place] : 52 degrees Calculated R [place] : 81 degrees Calculated T [place] : 51 degrees Normal sinus rhythm Prolonged QT Abnormal ECG No previous ECGs available Confirmed by NA GRIMES MD ([id number]) on 03/27/2024 6:41:33 PM NAME : ELKIN VAUGHN PID : [id number] : 1985 Gender : Male Race : ORD : [id number] Procedure Date : Mar 26 2024 15:07:16 Edit Date : Mar 27 2024 18:41:35 Diagnosis: Normal sinus rhythm Prolonged QT Abnormal ECG No previous ECGs available Confirmed by NA GRIMES MD ([id number]) on 03/27/2024 6:41:33 PM Test Reason : STAT Location : 0 : ED EDH32 Overread By : NA GRIMES MD Edited By : NA GRIMES MD Referred By : , Acquired by : [id number], [facility] ED NOTEon 03-26-2024 ED NOTE HNO ID: [id number] Author: BRANDT MORALES RN Service: ? Author Type: Registered Nurse Type: ED Notes Filed: 03/26/2024 22:51 Note Text: Patient O2 sat while sleeping 87% on RA, placed on 2L NC [facility] ED NOTE HNO ID: [id number] Author: BRANDT MORALES RN Service: ? Author Type: Registered Nurse Type: ED Notes Filed: 03/26/2024 20:59 Note Text: Patient awake and speaking to psych intake [facility] ED NOTE HNO ID: [id number] Author: BRANDT MORALES RN Service: ? Author Type: Registered Nurse Type: ED Notes Filed: 03/26/2024 15:28 Note Text: Spoke to patient's mother on the phone who was concerned, she stated she would like to see him go to a facility to get the help he needs [facility] ED NOTE HNO ID: [id number] Author: SHYANNE DOYLE RN Service: Emergency Medicine Author Type: Registered Nurse Type: ED Notes Filed: 03/26/2024 14:35 Note Text: Pt able to be aroused with a sternal rub. Pt sts that he took xanax off the floor and that she smoked weed twice today. Pt sts that he also had 1 beer. [facility] ED PROV NOTEon 03-26-2024 ED PROV NOTE HNO ID: [id number] Author: JUNAID WATERMAN MD Service: ? Author Type: Physician Type: ED Provider Notes Filed: 03/26/2024 17:07 Note Text: ED Provider Note Patient Name: Elkin Vaughn : 1985 SERVICE DATE: 03/26/24 CHIEF COMPLAINT Patient presents with: Overdose: Per EMS pt took a handful of xanax that was on the floor at his sisters house then waked to the gas station. EMS also stated that pt friend called PD and stated that he was making statements of being related to Baroc Obama as well as friends telling PD that they hhave been trying to get him help or pink slipped for a weeek. Overdose HISTORY Elkin Vaughn is a 39 year old male with PMH per EMR including bipolar schizoaffective disorder, presents by EMS with concern for overdose. Per EMS report, patient today took a handful of Xanax on the floor at his sister's house then walked to a gas station, friends expressed concern for patient's wellbeing and called the police, patient developed lethargy and was brought to the emergency department for evaluation. On my evaluation patient discloses Xanax use marijuana use and alcohol use recreationally, he reports this was not an attempt to hurt himself, denies suicidal homicidal ideation, intention to harm self or others, he denies fall or injury, he denies any symptoms or concerns at this time although provides limited history. PAST MEDICAL HISTORY: as per HPI SOCIAL HISTORY: Per EMR history of tobacco and marijuana use Medications: Per EMR review home medications include Klonopin, Pepcid, Neurontin, mirtazapine, Prilosec, Minipress REVIEW OF SYSTEMS Pertinent positive and negatives as per HPI. PHYSICAL EXAM Vitals [03/26/24 1430] BP Pulse Temp Temp src Resp SpO2 Weight Height 95/55 (!) 95 36.7 ?C (98.1 ?F) Oral 20 99 % 90.7 kg (200 lb) -- General: Appears intoxicated, no apparent discomfort Eyes: conjunctival noninjected, eyes tracking, pupils midsize, symmetrical, equally reactive HEENT: airway patent, mucous membranes moist, no scalp contusion or tenderness Neck: No nuchal rigidity, no limitation range of motion including flexion and extension, no neck tenderness Cardiovascular: regular rhythm, normal rate Respiratory: non-labored breathing, breath sounds clear, no wheezing crackles or rhonchi Gastrointestinal: soft, non-distended, non-tender to palpation throughout Extremities: no obvious deformity, non edematous, no swelling tenderness or deformity throughout the bilateral upper and lower extremities Integumentary: warm, dry Back: No tenderness to palpation throughout the back including midline thoracic lumbar spine Neurologic: GCS 12 (Eyes 2, verbal 4, motor 6) Investor Relations Associate strength symmetrical, ankle plantarflexion symmetrical, mildly slurred speech, seemingly answering questions appropriately, no facial droop, extraocular movements intact, provides limited history MEDICAL DECISION MAKING Systemic symptoms: Denies History and Record Review Clinical information obtained from an independent historian. History obtained from or confirmed by: EMS personnel. External record(s) reviewed: prior inpatient record. Findings from review of inpatient records: Per EMR review, patient seen in the emergency department on 03/24/2024 for methamphetamine abuse Differential Diagnoses - See MDM Management Management of the patient was discussed with:behavioral health, behavioral health and behavioral health Contributing Factors Social Determinants of Health significantly affecting care: substance abuse history Medications - No data to display Elkin Vaughn is a 39 year old male who presents as above, concern for overdose, intoxication, arrives afebrile, borderline hypotensive otherwise reassuring vitals, clinically appears intoxicated, patient discloses Xanax marijuana and alcohol use, this would be explanatory, his neurologic exam is nonfocal, he denies fall or injury, he has no evidence of head injury on exam, he denies intentional harm to self or others, SI or HI, or suicide attempt or intentional overdose, will obtain workup to evaluate including fingerstick Leukos, labs, UDS, and closely monitor, involuntary hold placed-will require sober reassessment. I received notification from [facility] and recovery board, patient was pink slipped in his decompensated and left treatment yesterday from [facility] who were notified prior to patient's transport. Will have psychiatry evaluate patient once more sober. Labs obtained, interpreted by me, notable for acetaminophen and salicylate levels negative, creatinine 1.46 comparable to prior evaluations, unremarkable LFTs, no leukocytosis, hemoglobin 11.9 previously 12.4 on 03/24/2024 per care everywhere review, glucose 94, UDS and urinalysis pending EKG obtained, per my interpretation, notable for sinus rhythm, heart rate 100 bpm, MN within normal limit, QRS 96 ms (more content not included)... Normal [facility] Ethanol SerPl-mCncon 024 Ethanol [Mass/Vol] mg/dL Normal <0.010 [facility] Comment on above: Order Comment: Deuce prince Type: BLOOD SPECIMEN Ordering Facility: [facility] Address: [address] [place] [address] Performed By: #### 3 298-7, 08258-7, 5643-2 #### [facility] CLIA [id number] [address] [place] [address] [place] Salicylates SerPl-mCncon Salicylates [Mass/Vol] mg/dL Normal 2.8-20.0 [facility] Comment on above: Order Comment: Deuce prince Type: BLOOD SPECIMEN Ordering Facility: [facility] Address: [address] [place], [place] [address] [place] [address] Result Comment: Refe rence ranges and high/low indicator flags are provided as general guidelines only. The treating physician must determine appropriate target levels/dosing based on the specific clinical situation. Performed By: #### 4 024-6, 1988-06 #### [facility] CLIA [id number] [address] [place] [address] [place] TOXICOLOGY SCREEN, ROUTINE U RINEon 03-26-2024 Amphetamines Confirm (U) [Mass/Vol] Negative Normal Negative [facility] Comment on above: Order Comment: Speci men Type: URINE SPECIMEN Ordering Facility: [facility] Address: [address] [place] [address] Result Comment: Cuto ff threshold at 1000 ng/mL. Performed By: #### U TOX2 #### [facility] CLIA [id number] [address] [place] [address] [place] BARBITURATES, URINE Negative Normal Negative [facility] Comment on above: Order Comment: Speci men Type: URINE SPECIMEN Ordering Facility: [facility] Address: [address] [place] [address] Result Comment: Cuto ff threshold at 200 ng/mL. Performed By: #### U TOX2 #### [facility] CLIA [id number] [address] [place] [address] [place] BENZODIAZEPINES, UR Positive Abnormal Negative [facility] Comment on above: Order Comment: Speci men Type: URINE SPECIMEN Ordering Facility: [facility] Address: [address] [place] [address] Result Comment: Cuto ff threshold at 200 ng/mL. Performed By: #### U TOX2 #### [facility] CLIA [id number] [address] [place] [address] [place] Cannabinoids Screen Ql (U) Positive Abnormal Negative [facility] Comment on above: Order Comment: Speci men Type: URINE SPECIMEN Ordering Facility: [facility] Address: [address] [place] [address] Result Comment: Cuto ff threshold at 50 ng/mL. Performed By: #### U TOX2 #### [facility] CLIA [id number] [address] [place] [address] [place] Cocaine Ql (U) Negative Normal Negative [facility] Comment on above: Order Comment: Speci men Type: URINE SPECIMEN Ordering Facility: [facility] Address: [address] [place] [address] Result Comment: Cuto ff threshold at 300 ng/mL. Performed By: #### U TOX2 #### [facility] CLIA [id number] [address] [place] [address] [place] Opiates Screen Ql (U) Negative Normal Negative [facility] Comment on above: Order Comment: Speci men Type: URINE SPECIMEN Ordering Facility: [facility] Address: [address] [place] [address] Result Comment: Cuto ff threshold at 300 ng/mL. Performed By: #### U TOX2 #### [facility] CLIA [id number] [address] [place] [address] [place] Phencyclidine Ql (U) Negative Normal Negative [facility] Comment on above: Order Comment: Speci men Type: URINE SPECIMEN Ordering Facility: [facility] Address: [address] [place] [address] Result Comment: Cuto ff threshold at 25 ng/mL. Performed By: #### U TOX2 #### [facility] CLIA [id number] [address] [place] [address] OF JEFF Urinalysis complete panel (U )on 03-26-2024 Bacteria LM.HPF (Urine sed) [#/Area] None Seen Normal None Seen [facility] Comment on above: Order Comment: Speci men Type: URINE SPECIMENOrdering Facility: [facility] Address: [address] [place] [address] Performed By: #### 2 4356-8 ####[facility]ORYCLIA [id number] [place] [address] [place] Bilirubin Ql (U) Negative Normal Negative [facility] Comment on above: Order Comment: Speci men Type: URINE SPECIMENOrdering Facility: [facility] Address: [address] [place] [address] Performed By: #### 2 4356-8 ####[facility]ORYCLIA [id number] [address] STATES OF [place] Clarity (Unsp spec) Clear Normal Clear [facility] Comment on above: Order Comment: Speci men Type: URINE SPECIMENOrdering Facility: [facility] Address: [address] [place] [address] Performed By: #### 2 4356-8 ####[facility]ORYCLIA [id number] [address] OF [facility] Color (U) Yellow Normal Yellow [facility] Comment on above: Order Comment: Speci men Type: URINE SPECIMENOrdering Facility: [facility] Address: [address] [place] [address] Performed By: #### 2 4356-8 ####[facility]ORYCLIA [id number] [address] Epithelial cells LM.HPF (Urine sed) [#/Area] Few Normal [facility] Comment on above: Order Comment: Speci men Type: URINE SPECIMENOrdering Facility: [facility] Address: [address] [place] [address] Performed By: #### 2 4356-8 ####[facility]ORYCLIA [id number] [address] OF [place] Glucose Test strip (U) [Mass/Vol] Negative Normal Negative [facility] Comment on above: Order Comment: Speci men Type: URINE SPECIMENOrdering Facility: [facility] Address: [address] [place] [address] Performed By: #### 2 4356-8 ####[facility]ORYCLIA [id number] [address] OF [place] Hemoglobin Ql (U) Negative Normal Negative [facility] Comment on above: Order Comment: Speci men Type: URINE SPECIMENOrdering Facility: [facility] Address: [address] [place] [address] Performed By: #### 2 4356-8 ####[facility]ORYCLIA [id number] [address] OF [place] Hyaline casts (Urine sed) [#/Area] 1-3 /LPF Abnormal 0 /LPF [facility] Comment on above: Order Comment: Speci men Type: URINE SPECIMENOrdering Facility: [facility] Address: [address] [place] [address] Performed By: #### 2 4356-8 ####[facility]ORYCLIA [id number] [place] [address] [place] Ketones Ql (U) Negative Normal Negative [facility] Comment on above: Order Comment: Speci men Type: URINE SPECIMENOrdering Facility: [facility] Address: [address] [place] [address] Performed By: #### 2 4356-8 ####[facility]ORYCLIA [id number] [address] STATES [place] Leukocyte esterase Test strip Ql (U) Negative Normal Negative [facility] Comment on above: Order Comment: Speci men Type: URINE SPECIMENOrdering Facility: [facility] Address: [address] [place] [address] Performed By: #### 2 4356-8 ####[facility]ORYCLIA [id number] [place] [address] [place] Nitrite Ql (U) Negative Normal Negative [facility] Comment on above: Order Comment: Speci men Type: URINE SPECIMENOrdering Facility: [facility] Address: [address] [place] [address] Performed By: #### 2 4356-8 ####[facility]ORYCLIA [id number] [place] [address] [place] pH (U) 6.0 [pH] Normal 5.0-8.0 [facility] Comment on above: Order Comment: Speci men Type: URINE SPECIMENOrdering Facility: [facility] Address: [address] [place] [address] Performed By: #### 2 4356-8 ####[facility]ORYCLIA [id number] [place] [address] [place] Protein (U) [Mass/Vol] Negative Normal Negative [facility] Comment on above: Order Comment: Speci men Type: URINE SPECIMENOrdering Facility: [facility] Address: [address] [place] [address] Performed By: #### 2 4356-8 ####[facility]ORYCLIA [id number] [place] [address] [place] RBC LM.HPF (Urine sed) [#/Area] 0-3 /HPF Normal 0-3 /HPF [facility] Comment on above: Order Comment: Speci men Type: URINE SPECIMENOrdering Facility: [facility] Address: [address] [place] [address] Performed By: #### 2 4356-8 ####[facility]ORYCLIA [id number] [address] STATES [facility] Specific gravity (U) [Rel density] 1.020 Normal 1.005-1.030 [facility] Comment on above: Order Comment: Speci men Type: URINE SPECIMENOrdering Facility: [facility] Address: [address] [place] [address] Performed By: #### 2 4356-8 ####[facility]ORYCLIA [id number] [place] [address] [place] SPERM Present Abnormal None Seen [facility] Comment on above: Order Comment: Speci men Type: URINE SPECIMENOrdering Facility: [facility] Address: [address] [place] [address] Performed By: #### 2 4356-8 ####[facility]ORYCLIA [id number] [place] [address] [place] Urobilinogen Ql (U) Negative Normal Negative [facility] Comment on above: Order Comment: Speci men Type: URINE SPECIMENOrdering Facility: [facility] Address: [address] [place] [address] Performed By: #### 2 4356-8 ####[facility]ORYCLIA [id number] [place] [address] [place] WBC LM.HPF (Urine sed) [#/Area] 0-5 /HPF Normal 0-5 /HPF [facility] Comment on above: Order Comment: Speci men Type: URINE SPECIMENOrdering Facility: [facility] Address: [address] [place] [address] Performed By: #### 2 4356-8 ####[facility]ATORYCLIA [id number] [place] [address] [place] ECG 12-LEADon 03-25-2024 ECG 12-LEAD IMPRESSION: Sinus rhythm Borderline prolonged QT interval Compared to ECG 03/24/2024 06:53:34 No significant changes Electronically Signed On 03-25-2024 10:20:35 EST by [place] [facility] ECG 12-LEAD IMPRESSION: Sinus rhythm Electronically Signed On 03-25-2024 10:17:22 EST by [facility] ED NOTEon 03-25-2024 ED NOTE HNO ID: [id number] Author: YECENIA BELTRAN RN Service: Emergency Medicine Author Type: Registered Nurse Type: ED Notes Filed: 03/25/2024 18:31 Note Text: Confirmed with security that this pt's sister has arrived to transport pt to [facility]. [facility] ED NOTE HNO ID: [id number] Author: THERESE CURRAN RN Service: Behavioral Health Author Type: Registered Nurse Type: ED Notes Filed: 03/25/2024 16:39 Note Text: FOOD AIDE NOTE Mr. Vaughn was laying in bed speaking to the provider when this RN-RC approached. Mr. Vaughn stated he was a patient at [facility] and caught a ride with Kalen so I could get checked out here on . Then I met up with a claude and smoked that blunt. Had to. Now Mr. Vaughn would like to return to [facility]. However, in speaking with Security there, there is no intake on the weekend and it is uncertain if Mr. Vaughn would be welcomed back. Although Mr. Vaughn is aware an apologetic that he is displaying unpredictable behavior, wandering from his room and attempting to hug this RN-RC, he is refusing to stay in his room and has has fleeting thoughts about seeing snakes and being bullied here for being light-skinned black and being related to Obama. He thanked this RN for the kind treatment he received from the staff here. Provided patient tray. PLAN: [facility] on Wednesday Report that his sister will transport and house [employer] for referral to [facility] ED NOTE HNO ID: [id number] Author: YECENIA BELTRAN, DEVON Service: Emergency Medicine Author Type: Registered Nurse Type: ED Notes Filed: 03/25/2024 16:43 Note Text: Spoke to an individual from [facility], Jacey Salazar. This pt is from [place], [place]. He arrived at [facility] on as pr Jacey. This pt was seen a Fredi Gregory and then discharged. This pt was triaged for a c/o smoking meth and hallucinations. According to Jacey the pt's sister just wants him taken back to [facility] and Jacey called to assist us in facilitating the transport. Therese from [facility] was consulted to attempt to contact [facility] but was told that no staff was there and only Security was present. It was decided that the pt's sister would be the best choice to get the pt back to [facility]. Jacey stated that if the facility will not admit this pt today then [facility] will provide a hotel for the pt until [facility] can be contacted for readmission. Jacey can be reached at [facility] ED NOTE HNO ID: [id number] Author: CURT BUSTILLOS RN Service: Emergency Medicine Author Type: Registered Nurse Type: ED Notes Filed: 03/25/2024 14:17 Note Text: Pt called 4x for triage. 2x by Laura IBARRA, 1x by Jennifer JESUS, and 1x by this RN. No answer for triage. [facility] ED PROV NOTEon 03-25-2024 ED PROV NOTE HNO ID: [id number] Author: JULIETTE ARTHUR MD Service: Emergency Medicine Author Type: Physician Type: ED Provider Notes Filed: 03/28/2024 19:52 Note Text: HPI: Patient seen in conjunction with resident doctor. See their note for further information. I saw and independently evaluated the patient. Briefly patient presents for meth abuse, requesting to be transferred either back to [facility] or discharged onto the streets. He denies suicidal or homicidal ideation. No chest pain or pressure. No anxiety. No fevers or chills. States that he left [facility] and a transport vehicle but was inadvertently dropped off to smoke marijuana and since then has been bouncing between hospitals. He does not want to be admitted to the hospital now. Physical exam Vital signs reviewed Patient sitting up in bed, awake and alert, no acute distress Head normocephalic atraumatic Neck supple, no stridor Heart mildly tachycardic rate of 122 Lungs no increased work of breathing Abdomen soft nontender nondistended. No masses organomegaly palpated Moving all 4 extremities equally and symmetrically, strength and tone equal and symmetric No notable rashes or wounds Denies suicidal/homicidal ideation Medical decision making: Patient presenting here requesting a ride to [facility], however they are closed. They are unable to accept new patients over the weekend. He does not want to be admitted to a different location at this time. He has no other acute complaints. He has no chest pain or pressure. He does appear mildly anxious, but in no acute distress. Offered him resources and evaluation however he is requesting to be discharged, and given his lack of acute symptoms, and his ability to seek outpatient follow-up with [facility] that he wants to follow-up with I believe this to be reasonable. He is welcome to return for any worsening or changing symptoms. This note was created using [employer] dictation software. Every attempt was made to proofread, however you may find errors regardless of how insignificant they may be. They are purely unintentional and if there are any concerns regarding this dictation, please do not hesitate to call the dictating provider for clarification. JULIETTE ARTHUR 03/28/241951 Normal [facility] ED PROV NOTE HNO ID: [id number] Author: JULIETTE ARTHUR MD Service: Emergency Medicine Author Type: Resident Type: ED Provider Notes Filed: 03/28/2024 19:52 Note Text: Attestation signed by Juliette Arthur MD at 03/28/2024 7:52 PM Attending Note I evaluated the patient and personally participated in the jenkins components. I agree with the resident's findings and plan as documented and have discussed the case and management of the patient's care with the resident. See my separate note Signature: Juliette Arthur MD Date: 03/28/2024 Time: 7:52 PM ED Provider Note Patient Name: Elkin Vaughn : 1985 SERVICE DATE: 03/25/24 History Patient presents with: Drug Problem: Pt arrives stating he smoke a lot of meth and now he is seeing snakes and they are going to bite his head off. Pt states he wants to go back to [place]. Pt rambling in triage, stating he is Z the G and that he is A candi, black, orthodox. Patient is a 39-year-old male who presents ED with a chief complaint of hallucinations following methamphetamine use. Patient states he last took methamphetamine 3-5 days ago. Patient denies associated suicidal ideation, homicidal ideation, chest pain, chest pressure, dyspnea. Pertinent past medical history as documented. PAST MEDICAL HISTORY Diagnosis Date Asthma EXERCISE INDUCED GERD (gastroesophageal reflux disease) Nightmares FRANCISCO (obstructive sleep apnea) Psychiatric disorder BIPOLAR; SCHIZOAFFECTIVE D/O PAST SURGICAL HISTORY Procedure Laterality Date PAST SURGICAL HISTORY OF wisdom teeth FAMILY HISTORY Problem Relation Age of Onset No Known Problems Mother Cancer Father skin Social History Tobacco Use Smoking status: Every Day Current packs/day: 0.20 Types: Cigarettes Smokeless tobacco: Never Vaping Use Vaping status: current everyday user Substance and Sexual Activity Alcohol use: No Drug use: Yes Types: Marijuana Comment: daily Sexual activity: Not on file ALLERGIES No Known Allergies Review of Systems See HPI Physical Exam Vitals [03/25/24 1432] BP Pulse Temp Temp src Resp SpO2 Weight Height 132/84 (!) 122 36.5 ?C (97.7 ?F) Oral 18 100 % 88.5 kg (195 lb) 1.829 m (6') Physical Exam Vitals and nursing note reviewed. Constitutional: General: He is not in acute distress. Appearance: Normal appearance. He is normal weight. He is not ill-appearing. HENT: Head: Normocephalic and atraumatic. Nose: Nose normal. Mouth/Throat: Mouth: Mucous membranes are moist. Pharynx: Oropharynx is clear. Eyes: Conjunctiva/sclera: Conjunctivae normal. Pupils: Pupils are equal, round, and reactive to light. Cardiovascular: Rate and Rhythm: Regular rhythm. Tachycardia present. Pulses: Normal pulses. Heart sounds: Normal heart sounds. No murmur heard. No friction rub. Pulmonary: Effort: Pulmonary effort is normal. No respiratory distress. Breath sounds: Normal breath sounds. No stridor. Abdominal: General: Abdomen is flat. Bowel sounds are normal. There is no distension. Palpations: Abdomen is soft. There is no mass. Musculoskeletal: General: No swelling, tenderness, deformity or signs of injury. Cervical back: Normal range of motion and neck supple. No rigidity. Skin: General: Skin is warm and dry. Capillary Refill: Capillary refill takes less than 2 seconds. Coloration: Skin is not jaundiced or pale. Neurological: General: No focal deficit present. Mental Status: He is alert. Mental status is at baseline. Psychiatric: Comments: Endorses mild hallucinations and appears somewhat internally stimulated. No significant psychosis, SI, HI. Diagnostic Testing ED Labs Ordered and Reviewed - No data to display Procedures ED Course / Clinical Impression Clinical Impressions as of 03/26/24 1543 Psychosis, unspecified psychosis type (HCC) MDM / Disposition / Plan Patient is a 39-year-old male who presents ED with a chief complaint of hallucinations following methamphetamine use. Please see physical exam as documented. At this time, patient's most likely ED diagnoses include psychosis which appears secondary to recent drug use. Low suspicion for acute psychosis requiring psychiatric admission, suicidal ideation, homicidal ideation. Resources provided. Return precautions follow-up instructions discussed. Patient discharged in hemodynamically vitally stable condition. SIGNATURE: Elaine Aleman MD - ELAINE ALEMAN 03/26/24 1543 JULIETTE ARTHUR 03/28/24 1952 Normal [facility] No Panel InformationOrdered By: Chino Thomas on 03-25-2024 P [place] 53 degrees [facility] Work Phone: MN Interval 127 ms [facility] Work Phone: QRS [place] 88 degrees [facility] Work Phone: QRSD Interval 97 ms [facility] Work Phone: QT Interval 373 ms [facility] Work Phone: QTC Interval 477 ms [facility] Work Phone: T Wave [place] 59 degrees [facility] Work Phone: [facility] [place] Work Phone: No Panel Informationon 03-25 Sinus rhythm Borderline prolonged QT interval Compared to ECG 03/24/2024 06:53:34 No significant changes Electronically Signed On 03-25-2024 10:20:35 EST by Chino Thomas Chino Hope MD - 03/25/2024 IMPRESSION: Sinus rhythm Borderline prolonged QT interval Compared to ECG 03/24/2024 06:53:34 No significant changes Electronically Signed On 03-25-2024 10:20:35 EST by Chino Thomas [facility] Vital signsOrdered By: Chino rasmussen on 03-25-2024 Heart rate 98 /min bpm [facility] [place] Work Phone: BASIC METABOLIC PANELon 03-06 Anion gap [Moles/Vol] 5 mmol/L Normal 3-13 [facility] Comment on above: Performed By: #### L AB62, LAB15 ####Fitness Services Manager: JENNIFER ENCISO ([phone])[facility] ([address] Calcium [Mass/Vol] 8.7 mg/dL Normal 8.4-10.2 [facility] Comment on above: Performed By: #### L AB62, LAB15 ####Fitness Services Manager: JENNIFER ENCISO ([phone])[facility] ([facility])[address] [place] [address] Chloride [Moles/Vol] 109 mmol/L High 98-107 [facility] Comment on above: Performed By: #### L AB62, LAB15 ####Fitness Services Manager: JENNIFER ENCISO ([phone])[facility] ([facility])[address] [place] [address] [place] CO2 [Moles/Vol] 25 mmol/L Normal 22-29 [facility] Comment on above: Performed By: #### Nany RODRIGUEZ, LAB15 ####Fitness Services Manager: JENNIFER ENCISO ([phone])[facility])[address] [place] [address] Creatinine [Mass/Vol] 0.98 mg/dL Normal 0.72-1.25 [facility] Comment on above: Performed By: #### Nany RODRIGUEZ, LAB15 ####Fitness Services Manager: JENNIFER ENCISO ([phone])[facility])[address] [place] [address] GLOMERULAR FILTRATION RATE ML/MIN/1.73 SQ M.PREDICTED >90.0 Normal >60.0 [facility] Comment on above: Result Comment: Calc ulation based on the Chronic Kidney Disease Epidemiology Collaboration (CKD-EPI) equation refit without adjustment for race Performed By: #### L JENNIFER, LAB15 ####Fitness Services Manager: JENNIFER ENCISO ([phone])[facility] ([facility])[address] [place] [address] Glucose [Mass/Vol] 125 mg/dL High 74-100 [facility] Comment on above: Performed By: #### L 62, LAB15 ####Fitness Services Manager: JENNIFER ENCISO ([phone])[facility])[address] [place] [address] Potassium [Moles/Vol] 3.9 mmol/L Normal 3.5-5.1 [facility] Comment on above: Result Comment: Plas ma potassium values may be up to 0.5 mmol/L lower than serum values. Performed By: #### L AB62, LAB15 ####Fitness Services Manager: JENNIFER ENCISO ([phone])[facility])[address] [place] [address] Sodium [Moles/Vol] 139 mmol/L Normal 136-145 [facility] Comment on above: Performed By: #### L AB62, LAB15 ####Fitness Services Manager: JENNIFER ENCISO ([phone])[facility] ([facility])[address] [place] [address] Urea nitrogen [Mass/Vol] 15 mg/dL Normal 8-21 [facility] Comment on above: Performed By: #### L AB62, LAB15 ####Fitness Services Manager: JENNIFER ENCISO ([phone])[address] Basic metabolic 1998 panelon 03-24-2024 Anion gap [Moles/Vol] 5 mmol/L 3 - 13 mmol/L [facility] Calcium [Mass/Vol] 8.7 mg/dL 8.4 - 10. 2 mg/dL [facility] Chloride [Moles/Vol] 109 mmol/L High 98 - 10 7 mmol/L [facility] CO2 [Moles/Vol] 25 mmol/L 22 - 29 mmol/L [facility] Creatinine [Mass/Vol] 0.98 mg/dL 0.72 - 1.25 mg/dL [facility] GFR/1.73 sq M.predicted (S/P/Bld) [Vol rate/Area] - PINF [facility] Comment on above: Calculation based on the Chronic Kidney Disease Epidemiology Collaboration (CKD-EPI) equation refit without adjustment for race Glucose [Mass/Vol] 125 mg/dL High 74 - 100 mg/dL [facility] Potassium [Moles/Vol] 3.9 mmol/L 3.5 - 5.1 mmol/L [facility] Comment on above: Plasma potassium dhiraj ues may be up to 0.5 mmol/L lower than serum values. Sodium [Moles/Vol] 139 mmol/L 136 - 145 mmol/L [facility] Urea nitrogen [Mass/Vol] 15 mg/dL 8 - 21 mg/dL [facility] CBC W Auto Differential pane l (Bld)on 03-24-2024 Basophils (Bld) [#/Vol] 0 10*3/uL 0.0 - 0.2 10*3/uL [facility] Basophils/100 WBC (Bld) 0.4 % 0.0 - 2.0 % [facility] Eosinophils (Bld) [#/Vol] 0.2 10*3/uL 0.0 - 0.5 10*3/uL [facility] Eosinophils/100 WBC (Bld) 3.1 % 0.0 - 6.0 % [facility] Erythrocyte distribution width (RBC) [Ratio] 14.3 % 11.5 - 15.0 % [facility] Hematocrit (Bld) [Volume fraction] 35.9 % Low 40.0 - 52.0 % [facility] Hemoglobin (Bld) [Mass/Vol] 12.4 g/dL Low 13.0 - 18.0 g/dL [facility] Immature granulocytes (Bld) [#/Vol] 0 10*3/uL NINF - 0.1 10*3/uL [facility] Immature granulocytes/100 WBC (Bld) 0.2 % 0.0 - 2.0 % [facility] Interpretation and review of laboratory results Abnormal [facility] Lymphocytes (Bld) [#/Vol] 2.1 10*3/uL 1.0 - 4.3 10*3/uL [facility] Lymphocytes/100 WBC (Bld) 37.2 % 15.0 - 45.0 % [facility] MCH (RBC) [Entitic mass] 30.3 pg 26.0 - 34.0 pg [facility] MCHC (RBC) [Mass/Vol] 34.5 % 30.5 - 36.0 % [facility] MCV (RBC) [Entitic vol] 87.8 fL 77.0 - 99.0 fL [facility] Monocytes (Bld) [#/Vol] 0.5 10*3/uL 0.0 - 0.9 10*3/uL [facility] Monocytes/100 WBC (Bld) 8.3 % 5.0 - 13.0 % [facility] Neutrophils (Bld) [#/Vol] 2.8 10*3/uL 1.8 - 7.5 10*3/uL [facility] Neutrophils/100 WBC (Bld) 50.8 % 38.0 - 82.0 % [facility] Nucleated RBC/100 WBC (Bld) [Ratio] 0 % [facility] Platelet mean volume (Bld) [Entitic vol] 8.5 fL Low 9.0 - 12.7 fL [facility] Platelets (Bld) [#/Vol] 236 10*3/uL 140 - 440 10*3/uL [facility] RBC (Bld) [#/Vol] 4.09 10*6/uL Low 4.40 - 5.9 0 10*6/uL [facility] WBC (Bld) [#/Vol] 5.5 10*3/uL 3.6 - 10.7 10*3/uL [facility] CBC WITH AUTO DIFFERENTIALon 03-24-2024 Basophils (Bld) [#/Vol] 0.0 10*3/uL Normal 0.0-0.2 [facility] Comment on above: Performed By: #### Nany RODRIGUEZ, LAB17, LAB46 #### Fitness Services Manager: JENNIFER ENCISO ([phone]) [facility]) [address] [place] [address] Basophils/100 WBC (Bld) 0.4 % Normal 0.0-2.0 S [facility] Comment on above: Performed By: #### Nany RODRIGUEZ, LAB17, LAB46 #### Fitness Services Manager: JENNIFER ENCISO ([phone]) [facility]) [address] [place] [address] [place] Eosinophils (Bld) [#/Vol] 0.2 10*3/uL Normal 0.0-0.5 [facility] Comment on above: Performed By: #### Nany RODRIGUEZ LAB17, LAB46 #### Fitness Services Manager: JENNIFER ENCISO ([phone]) [facility]) [address] [place] [address] [place] Eosinophils/100 WBC (Bld) 3.1 % Normal 0.0-6.0 [facility] Comment on above: Performed By: #### Nany RODRIGUEZ, LAB17, LAB46 #### Fitness Services Manager: JENNIFER ENCISO ([phone]) [facility]) [address] [place] [address] Erythrocyte distribution width (RBC) [Ratio] 14.3 % Normal 11.5-15.0 [facility] Comment on above: Performed By: #### Nany RODRIGUEZ, LAB17, LAB46 #### Fitness Services Manager: JENNIFER ENCISO ([phone]) [facility]) [address] [place] [address] Hematocrit (Bld) [Volume fraction] 35.9 % Low 40.0-52.0 [facility] Comment on above: Performed By: #### Nany RODRIGUEZ, LAB17, LAB46 #### Fitness Services Manager: JENNIFER ENCISO ([phone]) [address] Hemoglobin (Bld) [Mass/Vol] 12.4 g/dL Low 13.0-18.0 [facility] Comment on above: Performed By: #### Nany RODRIGUEZ, LAB17, LAB46 #### Fitness Services Manager: JENNIFER ENCISO ([phone]) [facility]) [address] [place] [address] IMMATURE GRANS % 0.2 % Normal 0.0-2.0 [facility] Comment on above: Performed By: #### Nany RODRIGUEZ, LAB17, LAB46 #### Fitness Services Manager: JENNIFER ENCISO ([phone]) [address] IMMATURE GRANS ABSOLUTE 0.0 10*3/uL Normal <0.1 [facility] Comment on above: Performed By: #### Nany RODRIGUEZ, LAB17, LAB46 #### Fitness Services Manager: JENNIFER ENCISO ([phone]) [facility]) [address] [place] [address] Lymphocytes (Bld) [#/Vol] 2.1 10*3/uL Normal 1.0-4.3 [facility] Comment on above: Performed By: #### Nany RODRIGUEZ, LAB17, LAB46 #### Fitness Services Manager: JENNIFER [phone]) [facility]) [address] [place] [address] Lymphocytes/100 WBC (Bld) 37.2 % Normal 15.0-45.0 [facility] Comment on above: Performed By: #### Nany RODRIGUEZ, LAB17, LAB46 #### Fitness Services Manager: JENNIFER ENCISO ([phone]) [facility]) [address] [place] [address] MCH (RBC) [Entitic mass] 30.3 pg Normal 26.0-34.0 [facility] Comment on above: Performed By: #### Nany RODRIGUEZ, LAB17, LAB46 #### Fitness Services Manager: JENNIFER ENCISO ([phone]) [facility]) [address] [place] [address] MCHC 34.5 % Normal 30.5-36.0 [facility] Comment on above: Performed By: #### Nany RODRIGUEZ, LAB17, LAB46 #### Fitness Services Manager: JENNIFER ENCISO ([phone]) [facility] ([facility]) [address] [place] [address] MCV (RBC) [Entitic vol] 87.8 fL Normal 77.0-99.0 S [facility] Comment on above: Performed By: #### Nany RODRIGUEZ, LAB17, LAB46 #### Fitness Services Manager: JENNIFER ENCISO ([phone]) [facility]) [address] [place] [address] Monocytes (Bld) [#/Vol] 0.5 10*3/uL Normal 0.0-0.9 [facility] Comment on above: Performed By: #### Nany RODRIGUEZ, LAB17, LAB46 #### Fitness Services Manager: JENNIFER ENCISO ([phone]) [facility]) [address] [place] [address] Monocytes/100 WBC (Bld) 8.3 % Normal 5.0-13.0 [facility] Comment on above: Performed By: #### Nany RODRIGUEZ, LAB17, LAB46 #### Fitness Services Manager: JENNIFER ENCISO ([phone]) [facility] [address] [place] [address] NEUTROPHILS ABSOLUTE 2.8 10*3/uL Normal 1.8-7.5 [facility] Comment on above: Performed By: #### Nany RODRIGUEZ, LAB17, LAB46 #### Fitness Services Manager: JENNIFER ENCISO ([phone]) [facility] ([facility]) [address] [place] [address] Neutrophils/100 WBC (Bld) 50.8 % Normal 38.0-82.0 [facility] Comment on above: Performed By: #### Nany RODRIGUEZ, LAB17, LAB46 #### Fitness Services Manager: JENNIFER ENCISO ([phone]) [facility] ([facility]) [address] [place] [address] NRBC 0.0 /100 WBCs Normal 0.0-2.0 [facility] Comment on above: Performed By: #### Nany RODRIGUEZ, LAB17, LAB46 #### Fitness Services Manager: JENNIFER ENCISO ([phone]) [facility] ([facility]) [address] [place] [address] Platelet mean volume (Bld) [Entitic vol] 8.5 fL Low 9.0-12.7 [facility] Comment on above: Performed By: #### Nany RODRIGUEZ, LAB17, LAB46 #### Fitness Services Manager: JENNIFER ENCISO ([phone]) [facility] ([facility]) [address] [place] [address] Platelets (Bld) [#/Vol] 236 10*3/uL Normal 140-440 [facility] Comment on above: Performed By: #### Nany RODRIGUEZ, LAB17, LAB46 #### Fitness Services Manager: JENNIFER ENCISO ([phone]) [facility] ([facility]) [address] [place] [address] RBC (Bld) [#/Vol] 4.09 10*6/uL Low 4.40-5.90 [facility] Comment on above: Performed By: #### Nany RODRIGUEZ, LAB17, LAB46 #### Fitness Services Manager: JENNIFER ENCISO ([phone]) [facility] ([facility]) [address] [place] [address] WBC (Bld) [#/Vol] 5.5 10*3/uL Normal 3.6-10.7 [facility] Comment on above: Performed By: #### Nany AB62, LAB17, LAB46 #### Fitness Services Manager: JENNIFER ENCISO ([phone]) [facility] [address] [place] [address] [place] CKon 03-24-2024 CK [Catalytic activity/Vol] 506 U/L High 30-185 [facility] Comment on above: Performed By: #### Nany RODRIGUEZ, LAB17, LAB46 #### Fitness Services Manager: JENNIFER ENCISO ([phone]) [facility] ([facility]) [address] [place] [address] CK [Catalytic activity/Vol] 539 U/L High 30-185 [facility] Comment on above: Performed By: #### Nany RODRIGUEZ, LAB15 ####Fitness Services Manager: JENNIFER ENCISO ([phone])[facility] [place] [address] COMPLETE URINALYSISon 2023 BILIRUBIN, TOTAL PRESENCE IN URINE Negative Normal Negative [facility] Comment on above: Performed By: #### Nany RODRIGUEZ, LAB17, LAB46 #### Fitness Services Manager: JENNIFER ENCISO ([phone]) [facility] ([facility]) [address] [place] [address] Clarity (U) Clear Normal Clear [facility] Comment on above: Performed By: #### Nany ABVirgil, LAB17, LAB46 #### Fitness Services Manager: JENNIFER ENCISO ([phone]) [facility] ([facility]) [address] [place] [address] Color (U) Colorless Normal Lt. Yellow [facility] Comment on above: Performed By: #### L AB62, LAB17, LAB46 #### Fitness Services Manager: JENNIFER ENCISO ([phone]) [facility] ([facility]) [address] [place] [address] [place] GLUCOSE (MG/DL) IN URINE Normal Normal Normal (<70) [facility] Comment on above: Performed By: #### Nany RODRIGUEZ, LAB17, LAB46 #### Fitness Services Manager: JENNIFER ENCISO ([phone]) [facility] ([facility]) [address] [place] [address] HEMOGLOBIN PRESENCE IN URINE Negative Normal Negative [facility] Comment on above: Performed By: #### Nany ABVirgil, LAB17, LAB46 #### Fitness Services Manager: JENNIFER ENCISO ([phone]) [facility] [address] [place] [address] Ketones Ql (U) Negative Normal Negative [facility] Comment on above: Performed By: #### Nany RODRIGUEZ, LAB17, LAB46 #### Fitness Services Manager: JENNIFER ENCISO ([phone]) [facility] ([facility]) [address] [place] [address] LEUKOCYTE ESTERASE PRESENCE IN URINE BY TEST STRIP Negative Normal Negative [facility] Comment on above: Performed By: #### Nany RODRIGUEZ, LAB17, LAB46 #### Fitness Services Manager: JENNIFER ENCISO ([phone]) [facility] ([facility]) [address] [place] [address] NITRITE PRESENCE IN URINE Negative Normal Negative [facility] Comment on above: Performed By: #### Nany RODRIGUEZ, LAB17, LAB46 #### Fitness Services Manager: JENNIFER ENCISO ([phone]) [facility] ([facility]) [address] [place] [address] pH (U) 5.5 [pH] Normal 5.0-8.0 [facility] Comment on above: Performed By: #### Nany ABVirgil, LAB17, LAB46 #### Fitness Services Manager: JENNIFER ENCISO ([phone]) [facility] ([facility]) [address] [place] [address] Protein (U) [Mass/Vol] Negative Normal Negative [facility] Comment on above: Performed By: #### Nany RODRIGUEZ, LAB17, LAB46 #### Fitness Services Manager: JENNIFER ENCISO ([phone]) [facility] [address] [place] [address] Specific gravity (U) [Rel density] 1.007 Normal 1.005-1.030 [facility] Comment on above: Performed By: #### Nany RODRIGUEZ, LAB17, LAB46 #### Fitness Services Manager: JENNIFER ENCISO ([phone]) [facility] ([facility]) [address] [place] [address] UROBILINOGEN (MG/DL) IN URINE Normal Normal Normal (0-1) [facility] Comment on above: Performed By: #### Nany RODRIGUEZ, LAB17, LAB46 #### Fitness Services Manager: JENNIFER ENCISO ([phone]) [facility] ([facility]) [address] [place] [address] COMPREHENSIVE METABOLIC PANE Rodrigo 03-24-2024 Albumin [Mass/Vol] 3.9 g/dL Normal 3.5-5.0 [facility] Comment on above: Performed By: #### Nany RODRIGUEZ, LAB17, LAB46 #### Fitness Services Manager: JENNIFER ENCISO ([phone]) [facility] ([facility]) [address] [place] [address] ALP [Catalytic activity/Vol] 49 U/L Normal 40-150 [facility] Comment on above: Performed By: #### Nany RODRIGUEZ, LAB17, LAB46 #### Fitness Services Manager: JENNIFER ENCISO ([phone]) [facility] ([facility]) [address] [place] [address] ALT [Catalytic activity/Vol] 24 U/L Normal <40 [facility] Comment on above: Performed By: #### Nany RODRIGUEZ, LAB17, LAB46 #### Fitness Services Manager: JENNIFER ENCISO ([phone]) [facility] ([facility]) [address] [place] [address] Anion gap [Moles/Vol] 8 mmol/L Normal 3-13 [facility] Comment on above: Performed By: #### Nany RODRIGUEZ, LAB17, LAB46 #### Fitness Services Manager: JENNIFER ENCISO ([phone]) [facility]) [address] [place] [address] AST [Catalytic activity/Vol] 34 U/L High <34 [facility] Comment on above: Performed By: #### Nany RODRIGUEZ, LAB17, LAB46 #### Fitness Services Manager: JENNIFER ENCISO ([phone]) [facility] ([facility]) [address] [place] [address] Bilirubin [Mass/Vol] 0.5 mg/dL Normal <1.2 [facility] Comment on above: Performed By: #### Nany RODRIGUEZ, LAB17, LAB46 #### Fitness Services Manager: JENNFIER ENCISO ([phone]) [facility] [address] [place] [address] Calcium [Mass/Vol] 9.1 mg/dL Normal 8.4-10.2 [facility] Comment on above: Performed By: #### Nany RODRIGUEZ, LAB17, LAB46 #### Fitness Services Manager: JENNIFER ENCISO ([phone]) [facility] ([facility]) [address] [place] [address] [place] Chloride [Moles/Vol] 106 mmol/L Normal 98-107 [facility] Comment on above: Performed By: #### Nany RODRIGUEZ, LAB17, LAB46 #### Fitness Services Manager: JENNIFER ENCISO ([phone]) [facility] ([facility]) [address] [place] [address] [place] CO2 [Moles/Vol] 27 mmol/L Normal 22-29 [facility] Comment on above: Performed By: #### Nany RODRIGUEZ, LAB17, LAB46 #### Fitness Services Manager: JENNIFER ENCISO ([phone]) [facility] [address] [place] [address] [place] Creatinine [Mass/Vol] 0.95 mg/dL Normal 0.72-1.25 [facility] Comment on above: Performed By: #### Nany RODRIGUEZ, LAB17, LAB46 #### Fitness Services Manager: JENNIFER ENCISO ([phone]) [facility] [address] [place] [address] GLOMERULAR FILTRATION RATE ML/MIN/1.73 SQ M.PREDICTED >90.0 Normal >60.0 [facility] Comment on above: Result Comment: Calc ulation based on the Chronic Kidney Disease Epidemiology Collaboration (CKD-EPI) equation refit without adjustment for race Performed By: #### Nany RODRIGUEZ, LAB17, LAB46 #### Fitness Services Manager: JENNIFER ENCISO ([phone]) [facility] ([facility]) [address] [place] [address] [place] Glucose [Mass/Vol] 97 mg/dL Normal 74-100 [facility] Comment on above: Performed By: #### Nany RODRIGUEZ, LAB17, LAB46 #### Fitness Services Manager: JENNIFER ENCISO ([phone]) [facility]) [address] [place] [address] Potassium [Moles/Vol] 3.4 mmol/L Low 3.5-5.1 [facility] Comment on above: Result Comment: [facility] potassium values may be up to 0.5 mmol/L lower than serum values. Performed By: #### Nany RODRIGUEZ, LAB17, LAB46 #### Fitness Services Manager: JENNIFER ENCISO ([phone]) [facility] ([facility]) [address] [place] [address] [place] Protein [Mass/Vol] 7.0 g/dL Normal 6.4-8.3 [facility] Comment on above: Performed By: #### Nany RODRIGUEZ, LAB17, LAB46 #### Fitness Services Manager: JENNIFER ENCISO ([phone]) [facility] ([facility]) [address] [place] [address] [place] Sodium [Moles/Vol] 141 mmol/L Normal 136-145 [facility] Comment on above: Performed By: #### Nany RODRIGUEZ, LAB17, LAB46 #### Fitness Services Manager: JENNIFER ENCISO ([phone]) [facility]) [address] [place] [address] [place] Urea nitrogen [Mass/Vol] 13 mg/dL Normal 8-21 [facility] Comment on above: Performed By: #### Nany RODRIGUEZ, LAB17, LAB46 #### Fitness Services Manager: JENNIFER ENCISO ([phone]) [facility] ([facility]) [address] [place] [address] Comprehensive metabolic 1998 panelon 03-24-2024 Albumin [Mass/Vol] 3.9 g/dL 3.5 - 5.0 g/dL [facility] ALP [Catalytic activity/Vol] 49 U/L 40 - 150 U/L [facility] ALT [Catalytic activity/Vol] 24 U/L NINF - 40 U/L [facility] Anion gap [Moles/Vol] 8 mmol/L 3 - 13 mmol/L [facility] AST [Catalytic activity/Vol] 34 U/L High NINF - 34 U/L [facility] Bilirubin [Mass/Vol] 0.5 mg/dL NINF - 1.2 mg/dL [facility] Calcium [Mass/Vol] 9.1 mg/dL 8.4 - 10. 2 mg/dL [facility] Chloride [Moles/Vol] 106 mmol/L 98 - 10 7 mmol/L [facility] CO2 [Moles/Vol] 27 mmol/L 22 - 29 mmol/L [facility] Creatinine [Mass/Vol] 0.95 mg/dL 0.72 - 1.25 mg/dL [facility] GFR/1.73 sq M.predicted (S/P/Bld) [Vol rate/Area] - PINF [facility] Comment on above: Calculation based on the Chronic Kidney Disease Epidemiology Collaboration (CKD-EPI) equation refit without adjustment for race Glucose [Mass/Vol] 97 mg/dL 74 - 100 mg/dL [facility] Potassium [Moles/Vol] 3.4 mmol/L Low 3.5 - 5.1 mmol/L [facility] Comment on above: Plasma potassium dhiraj ues may be up to 0.5 mmol/L lower than serum values. Protein [Mass/Vol] 7 g/dL 6.4 - 8.3 g/dL [facility] Sodium [Moles/Vol] 141 mmol/L 136 - 145 mmol/L [facility] Urea nitrogen [Mass/Vol] 13 mg/dL 8 - 21 mg/dL [facility] DRUGS OF ABUSEon 03-24-2024 AMPHETAMINE SCREEN Positive Normal [facility] Comment on above: Performed By: #### L [id number] #### Fitness Services Manager: JENNIFER ENCISO ([phone]) [facility] ([facility]) [address] [place] [address] BARBITURATES SCREEN Negative Normal [facility] Comment on above: Performed By: #### L [id number] #### Fitness Services Manager: JENNIFER ENCISO ([phone]) [facility] ([facility]) [address] [place] [address] BENZODIAZEPINE SCREEN Negative Normal [facility] Comment on above: Performed By: #### L [id number] #### Fitness Services Manager: JENNIFER ENCISO ([phone]) [facility] ([facility]) [address] [place] [address] COCAINE METAB. SCREEN Negative Normal [facility] Comment on above: Performed By: #### L [id number] #### Fitness Services Manager: JENNIFER ENCISO ([phone]) [facility] [address] [place] [address] FENTANYL SCREEN, UR QUAL Negative Normal [facility] Comment on above: Result Comment: MEJIA Doll COMMENTS: The expected value for all of the drugs listed above is Negative. The following drugs or drug groups have been screened for by Immunoassay at the following thresholds: Amphetamine class (1000 ng/mL) Barbiturates (200 ng/mL) Benzodiazepines (200 ng/mL) Cocaine (300 ng/mL) Methadone (300 ng/mL) Opiates (300 ng/mL) Oxycodone (100 ng/mL) PCP (25 ng/mL) Fentanyl (1.0 ng/ml) NOTE: These results are for medical treatment only. Analysis performed using non-forensic procedures. POSITIVE results are NOT confirmed by a more specific alternative method unless requested. If confirmation is needed, request confirmation under separate order. Performed By: #### L [id number] #### Fitness Services Manager: JENNIFER ENCISO ([phone]) [facility] ([facility]) [address] [place] [address] METHADONE SCREEN Negative Normal [facility] Comment on above: Performed By: #### L [id number] #### Fitness Services Manager: JENNIFER ENCISO ([phone]) [facility] ([facility]) [address] [place] [address] OPIATES SCREEN Negative Normal [facility] Comment on above: Performed By: #### L [id number] #### Fitness Services Manager: JENNIFER ENCISO ([phone]) [facility] ([facility]) [address] [place] [address] OXYCODONE SCREEN Negative Normal [facility] Comment on above: Performed By: #### L [id number] #### Fitness Services Manager: JENNIFER ENCISO ([phone]) [facility] ([facility]) [address] [place] [address] PHENCYCLIDINE SCREEN Negative Normal [facility] Comment on above: Performed By: #### L [id number] #### Fitness Services Manager: JENNIFER ENCISO ([phone]) [facility] ([facility]) [address] [place] [address] ED Nursing Noteon 03-24-2024 ED Nursing Note Pt stated he is here for comfort meds to help with the effects of coming down from taking meth. Pt stated he last did meth yesterday morning. Normal [facility] ED Nursing Note Medic sitting with p t to attempt to keep him in his room until transport arrives [facility] ED Nursing Note Pt causing problems with another pt Normal [facility] ED Nursing Note Pt in hallway, attempting to redirect back into room [facility] ED Nursing Note Adin Watson refuse d to take pt by squad Normal [facility] ED Nursing Note Dimitri Watson here fo r pt Normal [facility] ED Nursing Note Pt requested to have a phone number written down. Normal [facility] ED Nursing Note Patient back in room from restroom. Normal [facility] ED Nursing Note Patient standing in doorway. Normal [facility] ED Nursing Note Registration at bedside. Normal [facility] ED Nursing Note Breakfast tray delivered. Normal [facility] ED Nursing Note Pt escorted by protective public service representative back to his room. Normal [facility] ED Nursing Note Pt up roaming in hallway, pt standing in front of nurses station and refusing to go back to his room. Normal [facility] ED Nursing Note Pt up to restroom, occupied by another pt so RN gave him urinal. Normal [facility] ED Nursing Note DEVON Oonfre @ bedside to obtain vitals Normal [facility] ED Nursing Note EKG @ bedside Normal [facility] ED Nursing Note Pt given water bottle Normal [facility] ED Nursing Note Dr. Barreto @ bedside Normal [facility] ED Nursing Note Pt given two bottles of water Normal [facility] ED Nursing Note Pt given blanket and water Normal [facility] ED Nursing Note Pt changed into two gowns and one pair of socks. Pt wanded by protective services and a visual skin check was conducted by RN. Pt belongings were placed into three belonging bags, which were zip-tied, tagged and locked in locker 57A. Normal [facility] ED Nursing Note Several attempts mad e to get ahold of [employer] without success. Protective services called and had pt call and leave VM. Protective services escorted pt off property and bus pass was given to pt Normal [facility] ED Nursing Note Called [employer] nurse line, no answer. Will try again in 15min [facility] ED Provider Noteon ED Provider Note EMERGENCY DEPARTMENT ENCOUNTER Pt Name: Elkin Vaughn Birthdate 1985 Date of evaluation: 03/24/2024 ED Provider: Ana Salgado MD CHIEF COMPLAINT Chief Complaint Patient presents with Hallucinations Pt is detoxifying from meth, states he is hallucinating. Pt from [facility] HISTORY OF PRESENT ILLNESS (Location/Symptom, Timing/Onset, Context/Setting, Quality, Duration, Modifying Factors, Severity) Note limiting factors. HPI Elkin Vaughn is a 39 y.o. male who presents to the emergency department from his [facility] facility for relapse. Patient states that he is today and is just here to his ID and wanted something for his anxiety. Denies any suicidal or homicidal ideation. Denies any auditory or visualizations. Nursing Notes were reviewed. REVIEW OF SYSTEMS Review of Systems Pertinent positives and negatives per HPI PAST MEDICAL HISTORY Past Medical History: Diagnosis Date Bipolar 1 disorder (HCC) OCD (obsessive compulsive disorder) Psychiatric problem PTSD (post-traumatic stress disorder) Schizo affective schizophrenia (HCC) SURGICAL HISTORY History reviewed. No pertinent surgical history. CURRENT MEDICATIONS There are no discharge medications for this patient. ALLERGIES Patient has no known allergies. FAMILY HISTORY No family history on file. SOCIAL HISTORY Social History Socioeconomic History Marital status: Single Tobacco Use Smoking status: Every Day Current packs/day: 1.00 Types: Cigarettes Substance and Sexual Activity Alcohol use: Not Currently Drug use: Yes SCREENINGS PHYSICAL EXAM ED Triage Vitals [03/24/242226] Temp Heart Rate Resp BP 36.6 ?C (97.8 ?F) 103 20 136/74 SpO2 Temp Source Heart Rate Source Patient Position 98 % Oral Monitor -- BP Location FiO2 (%) -- -- Physical Exam Disheveled male acute distress. Vital signs reviewed and unremarkable. Head is normocephalic and atraumatic. Lungs clear to auscultation bilaterally. No increased work of breathing. Abdomen soft and nontender. Does not appear to be internally stimulated. Does not appear to be acutely intoxicated. DIAGNOSTIC RESULTS RADIOLOGY (Per Emergency Physician): Interpretation per the Radiologist below, if available at the time of this note: No orders to display LABS: Labs Reviewed - No data to display All other labs were within normal range or not returned as of this dictation. EMERGENCY DEPARTMENT COURSE and DIFFERENTIAL DIAGNOSIS/MDM: Vitals: Vitals: 03/24/242226 BP: 136/74 Pulse: 103 Resp: 20 Temp: 36.6 ?C (97.8 ?F) TempSrc: Oral SpO2: 98% Medications LORazepam (Ativan) tablet 1 mg (1 mg Oral Given 03/24/240) Medical Decision Making 39-year-old male present emergency department today for anxiety for methamphetamine use. Afebrile hemodynamically stable. Denies any suicidal or homicidal ideation. States that he is here to get something for his anxiety. I gave him a dose of oral Ativan and he felt that he was safe for discharge. Discharged in stable condition. Diagnostic tests considered but not performed: External records reviewed: Diagnostics interpreted by me: Discussions with other clinicians: Chronic conditions impacting care: Social determinants of health affecting care: ED Medications managed: Medications LORazepam (Ativan) tablet 1 mg (1 mg Oral Given 03/24/240) Prescription drugs considered: I Ana Salgado MD am the speech clinician of record. FINAL IMPRESSION 1. Methamphetamine abuse (CMS/[facility]) ([facility]) DISPOSITION Discharge 03/24/2024 10:36:49 PM PATIENT REFERRED TO: Alan Castillo [address] [facility] [address] DISCHARGE MEDICATIONS: There are no discharge medications for this patient. (Comment: Please note this report has been produced using speech recognition software and may contain errors related to that system including errors in grammar, punctuation, and spelling, as well as words and phrases that may be inappropriate. If there are any questions or concerns please feel free to contact the dictating provider for clarification.) Ana Salgado MD (electronically signed) Emergency Medicine Provider Ana Salgado MD 03/27/24 1255 [facility] ED Provider Note EMERGENCY DEPARTMENT ENCOUNTER Pt Name: Elkin Vaughn Birthdate 1985 Date of evaluation: 03/24/2024 ED Provider: Fuad Barreto DO CHIEF COMPLAINT Chief Complaint Patient presents with Suicidal Pt reports I want to leave my body and see my loves ones in [facility] . Pt reports hx of attempt as a teen. Hx of substance use. Reports his plan is to overdose on drugs Psychiatric Evaluation HISTORY OF PRESENT ILLNESS (Location/Symptom, Timing/Onset, Context/Setting, Quality, Duration, Modifying Factors, Severity) Note limiting factors. I wore appropriate PPE for the entirety of this encounter. HPI Elkin Vaughn is a 39 y.o. with a past medical history of polysubstance abuse (meth, crack cocaine, EtOH, marijuana), depression, currently homeless, who presents to the emergency department from a detox facility for the evaluation of suicidal ideations. Patient explains that he he has a plan to overdose on street drugs. Denies HI, hallucinations. Denies any medical concerns at this time, including fevers, chest pain, shortness of breath, abdominal. Nursing Notes were reviewed. Limitations to history: None Outside historians: EMS REVIEW OF SYSTEMS Review of Systems Pertinent positives and negatives as per HPI. PAST MEDICAL HISTORY Past Medical History: Diagnosis Date Bipolar 1 disorder (HCC) OCD (obsessive compulsive disorder) Psychiatric problem PTSD (post-traumatic stress disorder) Schizo affective schizophrenia (HCC) SURGICAL HISTORY History reviewed. No pertinent surgical history. CURRENT MEDICATIONS Previous Medications No medications on file ALLERGIES Patient has no known allergies. FAMILY HISTORY No family history on file. SOCIAL HISTORY Social History Socioeconomic History Marital status: Single Tobacco Use Smoking status: Every Day Current packs/day: 1.00 Types: Cigarettes Substance and Sexual Activity Alcohol use: Not Currently Drug use: Yes SCREENINGS PHYSICAL EXAM ED Triage Vitals [03/24/24 0712] Temp Heart Rate Resp BP 36.1 ?C (96.9 ?F) 75 16 96/67 SpO2 Temp Source Heart Rate Source Patient Position 100 % Temporal Monitor -- BP Location FiO2 (%) -- -- Physical Exam Vitals and nursing note reviewed. Constitutional: Appearance: Normal appearance. HENT: Head: Normocephalic and atraumatic. Mouth/Throat: Pharynx: Oropharynx is clear. Cardiovascular: Rate and Rhythm: Normal rate and regular rhythm. Pulses: Normal pulses. Heart sounds: Normal heart sounds. Pulmonary: Effort: Pulmonary effort is normal. No respiratory distress. Breath sounds: Normal breath sounds. No wheezing, rhonchi or rales. Abdominal: Palpations: Abdomen is soft. Tenderness: There is no abdominal tenderness. Musculoskeletal: General: No signs of injury. Normal range of motion. Skin: General: Skin is warm and dry. Capillary Refill: Capillary refill takes less than 2 seconds. Neurological: General: No focal deficit present. Mental Status: He is alert and oriented to person, place, and time. Mental status is at baseline. Psychiatric: Attention and Perception: Attention and perception normal. Mood and Affect: Mood normal. Affect is tearful. Speech: Speech is tangential. Behavior: Behavior is cooperative. Thought Content: Thought content does not include homicidal or suicidal ideation. Judgment: Judgment is not impulsive or inappropriate. DIAGNOSTIC RESULTS RADIOLOGY (Per Emergency Physician): Interpretation per the Radiologist below, if available at the time of this note: No orders to display LABS: Labs Reviewed CBC WITH AUTO DIFFERENTIAL - Abnormal Result Value Auto WBC 5.5 RBC 4.09 (*) Hemoglobin 12.4 (*) Hematocrit 35.9 (*) MCV 87.8 MCH 30.3 MCHC 34.5 RDW 14.3 Platelets 236 MPV 8.5 (*) nRBC 0.0 Neutrophils Relative 50.8 Lymphocytes Relative 37.2 Monocytes Relative 8.3 Eosinophils Relative 3.1 Basophils Relative 0.4 Immature Grans % 0.2 Neutrophils Absolute 2.8 Lymphocytes Absolute 2.1 Monocytes Absolute 0.5 Eosinophils Absolute 0.2 Basophils Absolute 0.0 Immature Grans Absolute 0.0 CK - Abnormal CK 506 (*) COMPREHENSIVE METABOLIC PANEL - Abnormal SODIUM 141 POTASSIUM 3.4 (*) CHLORIDE 106 CARBON DIOXIDE 27 ANION GAP 8 UREA NITROGEN 13 CREATININE 0.95 GLUCOSE 97 CALCIUM 9.1 AST (SGOT) 34 (*) ALT 24 ALKALINE PHOSPHATASE 49 ALBUMIN 3.9 BILIRUBIN, TOTAL 0.5 TOTAL PROTEIN 7.0 eGFR >90.0 SARS-COV-2 ANTIGEN - Normal SARS-CoV-2 Antigen Negative ETHANOL - Normal ETHANOL IN SER/PLAS <10 Narrative: COMPUTER GAME TESTER depression is seen >100 mg/dL. NOTE: This result is for medical treatment only. Analysis performed using non-forensic procedures. COMPLETE URINALYSIS - Normal Color, Urine Colorless Clarity, Urine Clear pH, Urine 5.5 Leukocytes, Urine Negative Nitrite, Urine Negative Protein, Urine Negative Glucose, Urine No (more content not included)... Normal [facility] ED Provider Note Emergency Department Encounter [facility] EMERGENCY DEPT Patient: Elkin Vaughn : 1985 Date of Evaluation: 03/24/2024 ED Supervising Physician: Ramon Garcia DO I personally saw Elkin Vaughn and made/approved the management plan and take responsibility for the patient management. This will serve as my Supervisory note and shared attestation. I did perform a substantive portion of the visit including all aspects of the Medical Decision Making. I wore appropriate PPE for the entirety of this encounter. In brief, Elkin Vaughn is a 39 y.o. that presents to the emergency department with methamphetamine use. Patient is residing at [facility] facility when he had a relapse of methamphetamines. And was brought in by a friend initially requesting detox. Initially came to the emergency room at 8:30 PM on 03/23/2024. Discharged at 4:15 AM. When the patient realized that it was called out and new testing did not open till 8 AM he then told staff that he was suicidal. Patient admits to me that he is not suicidal and just told him that so he would have a place to stay for another 4 hours until new [facility] opening. Currently is asymptomatic with no complaints requesting discharge to go back to [facility]. Focused exam: Alert and oriented ?4, no acute distress, nontoxic appearing, Pulm: clear to auscultation bilaterally, Cardiac: regular rate and rhythm, Abdomen: soft nontender, Neuro: no focal motor or sensory deficits. Brief ED course/MDM: Patient requests detox from meth. Patient was discharged at 4 AM but then subsequently told staff that he was suicidal, admits that he only told them this so he would have a bed to sleep in until [facility] open 8 AM. When I reevaluate him around 9 AM he is asymptomatic requesting discharge. As he was faking suicidality and I feel he needs any further psychiatric evaluation at this time. Encouraged not to do this in the future, stop using meth and adhere to all the rules of his sober living facility. Will discharge. Diagnostics interpreted by me: I personally discussed the patient's management with other clinicians: All diagnostic, treatment, and disposition decisions were made by myself in conjunction with the resident. I also supervised jenkins portions of any procedures performed by the Resident. For all further details of the patient's emergency department visit, please see their documentation. (Comment: Please note this report has been produced using speech recognition software and may contain errors related to that system including errors in grammar, punctuation, and spelling, as well as words and phrases that may be inappropriate. If there are any questions or concerns please feel free to contact the dictating provider for clarification.) Ramon Garcia, [employer] Ramon Garcia DO 03/24/24 0952 Normal [facility] ETHANOLon 03-24-2024 ETHANOL IN SER/PLAS <10 Normal <10 [facility] Comment on above: Result Comment: MEJIA Doll COMMENTS: COMPUTER GAME TESTER depression is seen >100 mg/dL. NOTE: This result is for medical treatment only. Analysis performed using non-forensic procedures. Performed By: #### L AB62, LAB17, LAB46 #### Fitness Services Manager: JENNIFER ENCISO ([phone]) [facility] ([facility]) [address] [place] [address] Ethanol (Bld) [Mass/Vol]on 1 05-25-2023 Ethanol [Mass/Vol] mg/dL NINF - 10 mg/dL [facility] Interpretation and review of laboratory results Normal [facility] COMPUTER GAME TESTER depression is se en >100 mg/dL. NOTE: This result is for medical treatment only. Analysis performed using non-forensic procedures. [facility] Laboratory - Chemistry and C hemistry - challengeon 03-24-2024 CK [Catalytic activity/Vol] 506 U/L High 30 - 185 U/L [facility] CK [Catalytic activity/Vol] 539 U/L High 30 - 185 U/L [facility] - Drug toxicology on 03-24-2024 Amphetamines Screen method >1000 ng/mL Ql (U) Positive [facility] Barbiturates Screen method >200 ng/mL Ql (U) Negative [facility] Benzodiazepines Ql (U) Negative [facility] Methadone Screen Ql (U) Negative [facility] Opiates Screen Ql (U) Negative [facility] oxyCODONE Ql (U) Negative [facility] alth Phencyclidine Ql (U) Negative [facility] Laboratory - Microbiology an d Antimicrobial susceptibilityOrdered By: Amarjit Inman on 03-24-2024 SARS-CoV-2 (COVID-19) Ag [place].rapid Ql (Resp) Negative Negative [facility] Comment on above: A negative result do es not rule out the possibility of SARS-CoV-2 infection. NAAT-based methods should be considered for symptomatic patients presenting greater than seven days after onset of symptoms. Method: Lateral flow immunoassay. Fact sheets for healthcare providers and patients can be found at the following sites: https://www.fda.gov/media/506839/download https://www.fda.gov/media/981983/download No Panel Informationon 03-24 COCAINE METAB. SCREEN Negative [facility] FENTANYL SCREEN, UR QUAL Negative [facility] The expected value f or all of the drugs listed above is Negative. The following drugs or drug groups have been screened for by Immunoassay at the following thresholds: Amphetamine class (1000 ng/mL) Barbiturates (200 ng/mL) Benzodiazepines (200 ng/mL) Cocaine (300 ng/mL) Methadone (300 ng/mL) Opiates (300 ng/mL) Oxycodone (100 ng/mL) PCP (25 ng/mL) Fentanyl (1.0 ng/ml) NOTE: These results are for medical treatment only. Analysis performed using non-forensic procedures. POSITIVE results are NOT confirmed by a more specific alternative method unless requested. If confirmation is needed, request confirmation under separate order. [facility] Interpretation and review of laboratory results Abnormal [facility] Interpretation and review of laboratory results Abnormal [facility] SARS-COV-2 ANTIGENon 024 SARS-COV-2 ANTIGEN SARS-COV-2 ANTIGEN -BINAX Reference Negative Negative A negative result does not rule out the possibility of SARS-CoV-2 infection. NAAT-based methods should be considered for symptomatic patients presenting greater than seven days after onset of symptoms. Method: Lateral flow immunoassay. Fact sheets for healthcare providers and patients can be found at the following sites: https://www.fda.gov/med ia/424528/download https://www.fda.gov/med ia/688448/download Normal [facility] Comment on above: Performed By: #### L AB62, LAB17, LAB46 #### Fitness Services Manager: JENNIFER ENCISO ([phone]) [facility] ([facility]) [address] [place] [address] SARS-CoV-2 (COVID-19) Ag IA. rapid Ql (Resp)Ordered By: Amarjit Inman on 03-24-2024 Interpretation and review of laboratory results Normal [facility] Urinalysis complete panel (U )on 03-24-2024 Bilirubin Ql (U) Negative Negative mg/dL [facility] Clarity (U) Clear Clear [facility] Color (U) Colorless Lt. Yellow [facility] Glucose Ql (U) Normal Normal (<70) mg/dL [facility] Hemoglobin Ql (U) Negative Negative mg/dL [facility] Interpretation and review of laboratory results Normal [facility] Ketones (U) [Mass/Vol] Negative Negat [place] mg/dL [facility] Leukocyte esterase Test strip Ql (U) Negative Negative [place]/uL [facility] Nitrite Ql (U) Negative Negative [facility] th pH (U) 5.5 [pH] 5.0 - 8.0 pH [facility] Protein (U) [Mass/Vol] Negative Negat [place] mg/dL [facility] Specific gravity (U) [Rel density] 1.007 1.005 - 1.030 [facility] Urobilinogen (U) [Mass/Vol] Normal Normal (0-1) mg/dL [facility] ED Provider Noteon 4 ED Provider Note EMERGENCY DEPARTMENT ENCOUNTER Pt Name: Elkin Vaughn Birthdate 1985 Date of evaluation: 03/23/2024 ED Provider: Leni Anne DO CHIEF COMPLAINT Chief Complaint Patient presents with Drug / Alcohol Assessment Pt here to detox from meth. Pt states last use was this morning. Denies use of other substances at this time, but has previously used other drugs HISTORY OF PRESENT ILLNESS (Location/Symptom, Timing/Onset, Context/Setting, Quality, Duration, Modifying Factors, Severity) Note limiting factors. I wore appropriate PPE for the entirety of this encounter. HPI Elkin Vaughn is a 39 y.o. who presents to the emergency department with chief complaint of methamphetamine abuse and wanting possible detox. Patient states he is currently a resident of [facility] and did have a relapse and used methamphetamines or brought in by a friend. Did not have any alcohol use ever since he checked into [facility]. No other substances use. No suicidal or homicidal ideation. He was apparently told by staff and he does need to be evaluated in the ED for possible detox placement. Nursing Notes were reviewed. Limitations to history: None Outside historians: None REVIEW OF SYSTEMS Review of Systems Pertinent positives and negatives as per HPI PAST MEDICAL HISTORY Past Medical History: Diagnosis Date Bipolar 1 disorder ([facility]) OCD (obsessive compulsive disorder) Psychiatric problem PTSD (post-traumatic stress disorder) Schizo affective schizophrenia ([facility]) SURGICAL HISTORY No past surgical history on file. CURRENT MEDICATIONS There are no discharge medications for this patient. ALLERGIES Patient has no known allergies. FAMILY HISTORY No family history on file. SOCIAL HISTORY Social History Socioeconomic History Marital status: Single Tobacco Use Smoking status: Every Day Current packs/day: 1.00 Types: Cigarettes Substance and Sexual Activity Alcohol use: Not Currently Drug use: Yes PHYSICAL EXAM ED Triage Vitals [03/23/24 2325] Temp Heart Rate Resp BP (!) 35.6 ?C (96 ?F) 104 18 114/79 SpO2 Temp Source Heart Rate Source Patient Position 100 % Temporal Monitor Sitting BP Location FiO2 (%) Left arm -- Physical Exam Vitals and nursing note reviewed. Constitutional: General: He is not in acute distress. Appearance: He is well-developed. HENT: Head: Normocephalic and atraumatic. Eyes: Conjunctiva/sclera: Conjunctivae normal. Cardiovascular: Rate and Rhythm: Normal rate and regular rhythm. Heart sounds: No murmur heard. Pulmonary: Effort: Pulmonary effort is normal. No respiratory distress. Breath sounds: Normal breath sounds. Abdominal: Palpations: Abdomen is soft. Tenderness: There is no abdominal tenderness. Musculoskeletal: General: No swelling. Cervical back: Neck supple. Skin: General: Skin is warm and dry. Capillary Refill: Capillary refill takes less than 2 seconds. Neurological: Mental Status: He is alert and oriented to person, place, and time. Cranial Nerves: No cranial nerve deficit. Motor: No weakness. Gait: Gait normal. Psychiatric: Attention and Perception: Attention normal. Mood and Affect: Mood is elated. Speech: Speech is rapid and pressured. Behavior: Behavior is not agitated or aggressive. Behavior is cooperative. Thought Content: Thought content normal. DIAGNOSTIC RESULTS RADIOLOGY (Per Emergency Physician): Interpretation per the Radiologist below, if available at the time of this note: No orders to display LABS: Labs Reviewed BASIC METABOLIC PANEL - Abnormal Result Value SODIUM 139 POTASSIUM 3.9 CHLORIDE 109 (*) CARBON DIOXIDE 25 UREA NITROGEN 15 CREATININE 0.98 GLUCOSE 125 (*) CALCIUM 8.7 ANION GAP 5 eGFR >90.0 CK - Abnormal CK 539 (*) COMPLETE URINALYSIS WITH REFLEX TO CULTURE Narrative: The following orders were created for panel order Complete Urinalysis with reflex to Culture. Procedure Abnormality Status --------- ------ Complete Urinalysis[[id number]] Please view results for these tests on the individual orders. COMPLETE URINALYSIS All other labs were within normal range or not returned as of this dictation. EMERGENCY DEPARTMENT COURSE and DIFFERENTIAL DIAGNOSIS/MDM: Vitals: Vitals: 03/23/24 2325 BP: 114/79 BP Location: Left arm Patient Position: Sitting Pulse: 104 Resp: 18 Temp: (!) 35.6 ?C (96 ?F) TempSrc: Temporal SpO2: 100% Medications LORazepam (Ativan) tablet 1 mg (1 mg Oral Given 03/24/24 0202) acetaminophen (Tylenol) tablet 650 mg (650 mg Oral Given 03/24/24 0202) Patient presents ED with recent methamphetamine use wanting detox. He had reported prior history of alcohol abuse but to me did not endorse any recent alcohol use. Clinically no signs of acute alcohol withdrawal. He has no hallucinations. He also denies any suicidal or homicidal ideation. Due (more content not included)... Normal [facility] Emergency Department Summary on 03-22-2024 Emergency Department Summary [facility] Medical Records Department [address] [place] [address] Emergency Department Summary 03/22/24 MR#: [id number] Acct: [id number] Name: ELKIN VAUGHN Rep #: [id number] : 1985 39 From: [place] PCP: Dr. Alan Castillo MD Status:DEP ER Location: ED HPI History of Present Illness Chief Complaint: Anxiety Informant: patient Narrative Narrative: Brought in by EMS due to panic attack. History of anxiety, bipolar followed by counseling center. He is on medications including risperidone and mirtazapine. He states medications are not working. He states previously prescribed Klonopin that helped his symptoms. Unclear why it was stopped. He was in half-way for 2 months. Released a week ago. He had his medications however he lost them. He states typically homeless and he loses medications. States a [employer]ian[employer] member provided him stay at days and this evening. Think about his 11-year-old child and holidays had panic attack without any medications. He denies suicidal homicidal ideations. He is being set up to go to rehab facility tomorrow for a place to stay set up by a [employer]ian[employer] member. He is not there for any drug rehab issues. Prior similar symptoms: Yes PFSH [facility] Medical History Sleep apnea Severe dextromethorphan use disorder Panic attack Anxiety Depression GERD (gastroesophageal reflux disease) Bipolar disorder Home Medications ???Medication ???Instructions ???Recorded ???Last Taken ???Type gabapentin 600 mg tablet 600 mg PO TID 30 days #90 tabs 10/09/23 Unknown Rx atomoxetine 40 mg capsule 40 mg PO DAILY 11/24/23 Unknown History duloxetine 60 mg capsule,delayed 60 mg PO DAILY 11/24/23 Unknown History release famotidine 20 mg tablet 20 mg PO DAILY 11/24/23 Unknown History hydroxyzine HCl 50 mg tablet 100 mg PO Q6H PRN anxiety 11/24/23 Unknown History mirtazapine 30 mg tablet 30 mg PO QHS 11/24/23 Unknown History olanzapine 10 mg tablet 10 mg PO QHS 11/24/23 Unknown History olanzapine 5 mg tablet 5 mg PO DAILY 11/24/23 Unknown History omeprazole 20 mg capsule,delayed 20 mg PO DAILY 11/24/23 Unknown History release pramipexole 0.25 mg tablet 0.25 mg PO DAILY 11/24/23 Unknown History prazosin 2 mg capsule 2 mg PO QHS 11/24/23 Unknown History quetiapine 25 mg tablet 25 mg PO BID 11/24/23 Unknown History quetiapine 300 mg tablet 300 mg PO QHS 11/24/23 Unknown History risperidone 100 mg/0.28 mL 100 mg subcut QMONTH 11/24/23 Unknown History subcutaneous extend release susp syringe trazodone 50 mg tablet 50 mg PO QHS PRN sleep 11/24/23 Unknown History lorazepam 0.5 mg tablet (Ativan) 0.5 mg PO BID PRN anxiety #5 tabs 03/22/24 Unknown Rx Allergy/AdvReac Type Severity Reaction Status Date / Time No Known Allergies Allergy Verified 03/22/24 01:33 Social History household members: none and other details: Patient reports he has children and recently went degeneration so he could Smoking Status: Current every day smoker tobacco type: cigarettes and e-cigarettes ROS ROS ED Constitutional Constitutional ED: Denies chills, fever(s) or sweats ENT ENT ED: Denies sore throat Cardiovascular Cardiovascular: Denies chest pain, leg edema, palpitations or racing heartbeat Respiratory/Chest Respiratory/Chest: Denies cough, dyspnea or dyspnea on exertion Gastrointestinal Gastrointestinal: Denies abdominal pain, diarrhea, nausea or vomiting Genitourinary Genitourinary ED: Denies dysuria, hematuria or urinary frequency Musculoskeletal Musculoskeletal: Denies back pain, extremity pain or neck pain Integumentary Denies rash or wounds Neurologic Neurologic: Denies headache(s), paresthesias or weakness Psychiatric Psychiatric: Reports anxiety; Denies suicidal ideation or suicidal thoughts EXAM Physical Exam Const Vital Signs: 03/22/24 01:32 Temperature 97.7 F L Temperature Source Oral Pulse Rate 119 H Respiratory Rate 18 Blood Pressure 118/79 Blood Pressure Mean 92 Pulse Ox 98 Oxygen Delivery Method Room Air Positive well nourished and well developed Constitutional Narrative: Cooperative, talkative. General Appearance ED: well developed and NAD HEENT Reports moist mucous membranes normocephalic and atraumatic Eyes General Eye ED: Yes normal appearance of both eyes Neck full ROM Chest Wall Chest: Negative for tenderness Resp normal respiratory effort and normal air movement Effort and Inspection: symmetric chest movement; Negative for respiratory distress Cardio regular rhythm and no murmurs Rate: tachycardic Peripheral Pulses: pulses 2+ throughout GI normal to inspection, nondistended, normoactive bowel sounds and non-tender Palpation: Negative (more content not included)... Normal [facility] Progress Noteson 02-19-2024 System Manager Authentication Interface Message Text Chief Complaint Patient presents with Feeling anxious/nervous/tense Elkin Vaughn, a 39 year old male, presents today with anxiety. Hx since childhood but ran out of medication recently. Worse in the morning and at night when he has time to think. Reports being homeless. 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 Social Hx: Social History Socioeconomic History Marital status: Single Tobacco Use Smoking status: Never Substance and Sexual Activity Alcohol use: No Allergy: Allergies Allergen Reactions No Known Drug Allergies Current Medications: reviewed and reconciled O: BP 121/67 Pulse 108 Temp 98.7 ???F (37.1 ???C) (Temporal) Resp 18 Wt 183 lb (83 kg) SpO2 100% no prior weight on file Unable to retrieve a serum creatinine GEN: NAD. Sitting upright. Pleasant, talkative, and appropriate. Flat affect HEENT: Conjunctiva pink, sclera anicteric. PERRL and EOMs intact. CV: RRR, S1 and S2 noted. No murmurs, clicks, rubs, or gallops. 2+ peripheral pulses radial. Lungs: CTA bilaterally. Resps even and non labored. Speaking in full sentences. Neuro: Conversant, logical to content, alert and oriented. Muscle strength 5/5. Gross cranial nerves intact. A/P 1. (F41.9) Anxiety (primary encounter diagnosis) Comment: Discussed medications, limitations in EC, f/u with behavioral health, worsening S AND S and when to go to the ER. Plan: Propranolol HCl CR 60 MG CP24, hydrOXYzine (ATARAX) 25 MG tablet, PSYCHIATRY SERVICE REQUEST, ADULT 2. Instruction - See patient information. 3. Follow-up with Behavioral Health if symptoms persist or Go to ER if worsening. Patient verbalizes understanding and agrees with plan of care. Erma Spivey, MSN, BISCUIT MACHINE OPERATOR, FIREWALL ENGINEER-C, EMT-P Normal [facility] System Manager Authentication Interface Message Text Patient was identified by name and date of . Jo Dasilva Normal [facility] Emergency Department Summary on 12-26-2023 Emergency Department Summary [facility] Medical Records Department [address] [place] [address] Emergency Department Summary 12/26/23 MR#: [id number] Acct: [id number] Name: ELKIN VAUGHN Rep #: [id number] : 1985 38 From: Fito Nunn MD PCP: Dr. Alan Castillo MD Status:PRE ER Location: ED ADDENDUM by Dr. Fito Nunn MD on 12/26/23 at 2312 Attempted to review OARRS report, however getting an error when searching for this patient. 12/26/23 9157 Cosigner Signature (if applicable): cc: Dr. Alan Castillo MD * Signed HPI HPI - Psych History of Present Illness Chief Complaint: Mental Health Informant: patient Narrative Narrative: 38-year-old male presenting for anxiety feeling like he is having a panic attack. He states he is at a boardinghouse and he is having issues with the landlord and they locked the door and he feels that he cannot safely go back there tonight and feels like he is in a homeless scenario right now and feeling very anxious about that. Understands he has a history of frequent visits here and requesting medications states he is asking for a dose of Ativan for his anxiety tonight and then proceeds by saying that he states he will be calm and leave. Denies any suicidal or homicidal ideation. States someone at a different hospital was going to give him something if he had a ride home because he does not live near their but he could not secure a ride at the time and his anxiety is worse. [facility] Medical History Sleep apnea Severe dextromethorphan use disorder Panic attack Anxiety Depression GERD (gastroesophageal reflux disease) Bipolar disorder Home Medications ???Medication ???Instructions ???Recorded ???Last Taken ???Type gabapentin 600 mg tablet 600 mg PO TID 30 days #90 tabs 10/09/23 Unknown Rx atomoxetine 40 mg capsule 40 mg PO DAILY 11/24/23 Unknown History duloxetine 60 mg capsule,delayed 60 mg PO DAILY 11/24/23 Unknown History release famotidine 20 mg tablet 20 mg PO DAILY 11/24/23 Unknown History hydroxyzine HCl 50 mg tablet 100 mg PO Q6H PRN anxiety 11/24/23 Unknown History mirtazapine 30 mg tablet 30 mg PO QHS 11/24/23 Unknown History olanzapine 10 mg tablet 10 mg PO QHS 11/24/23 Unknown History olanzapine 5 mg tablet 5 mg PO DAILY 11/24/23 Unknown History omeprazole 20 mg capsule,delayed 20 mg PO DAILY 11/24/23 Unknown History release pramipexole 0.25 mg tablet 0.25 mg PO DAILY 11/24/23 Unknown History prazosin 2 mg capsule 2 mg PO QHS 11/24/23 Unknown History quetiapine 25 mg tablet 25 mg PO BID 11/24/23 Unknown History quetiapine 300 mg tablet 300 mg PO QHS 11/24/23 Unknown History risperidone 100 mg/0.28 mL 100 mg subcut QMONTH 11/24/23 Unknown History subcutaneous extend release susp syringe trazodone 50 mg tablet 50 mg PO QHS PRN sleep 11/24/23 Unknown History Allergy/AdvReac Type Severity Reaction Status Date / Time No Known Allergies Allergy Verified 12/22/23 14:50 Social History household members: none and other details: Patient reports he has children and recently went degeneration so he could Smoking Status: Current every day smoker tobacco type: cigarettes ROS ROS ED Constitutional Constitutional ED: Denies chills or fever(s) Eyes Eyes: Denies change in vision or diplopia ENT ENT ED: Denies rhinorrhea or sore throat Cardiovascular Cardiovascular: Denies chest pain or palpitations Respiratory/Chest Respiratory/Chest: Denies cough or dyspnea Gastrointestinal Gastrointestinal: Denies abdominal pain, diarrhea, nausea or vomiting Genitourinary Genitourinary ED: Denies dysuria or hematuria Musculoskeletal Musculoskeletal: Denies back pain or neck pain Integumentary Denies abscess or rash Neurologic Neurologic: Denies headache(s), paresthesias or weakness Psychiatric Psychiatric: Reports anxiety; Denies suicidal ideation or suicidal thoughts EXAM Physical Exam Const Vital Signs: 12/26/23 22:52 Temperature 98.1 F Temperature Source Oral Pulse Rate 108 H Respiratory Rate 16 Blood Pressure 127/67 H Blood Pressure Mean 87 Pulse Ox 100 Oxygen Delivery Method Room Air Positive well nourished and well developed General Appearance ED: well developed and NAD HEENT Reports moist mucous membranes normocephalic and atraumatic Eyes PERRL and EOMs intact bilaterally Neck full ROM and supple Resp normal respiratory effort and clear to auscultation bilaterally Cardio regular rate, regular rhythm and no murmurs Back/Spine General Back: other FROM Extremity normal to inspection General Extremety ED: Negative for edema General Extremity: Negative for edema Neuro oriente (more content not included)... Normal [facility] CNCOon 12-24-2023 CNCO Letter Text Normal [facility] CNOVon 12-22-2023 CNOV Office Visit (UCWSTR ) ELKIN VAUGHN ([id number]) 1985 M [facility] Date Time Provider Department 12/22/23 4:00 PM GILL JASSO [facility] During your visit today, we recorded the following information about you: Temperature Pulse Respiration Blood pressure 97.8 degrees 86/minute 16/minute 122/70 Weight 84.5 kg Gill Jasso MD 12/22/2023 5:25 PM Signed Patient presents with: Pain (foot) HPI: Foot and back pain: Duration: back started hurting during psychiatric admission 4 weeks ago. Feet have been bothering him for the last few days. Location: bilateral feet Character: sharp and shooting Radiation: No. Aggravating: standing and walking Relieving: rest Pain relievers: none. Associated: kidneys shut down sometime during recent ER or admission, heartburn is flared Pertinent negatives: Denies numbness, weakness, incontinence, dysuria, urinary frequency, blood in urine, fever, known injury, swelling [place] [facility] psychiatric hospitalization from [place] emergency room to [facility] 11/24/2023 including chemical and physical restraint. MEDICATIONS: None clonazePAM (KLONOPIN) 0.5 mg tablet (Patient not taking: Reported on 12/22/2023) gabapentin (NEURONTIN) 600 mg tablet Take 1 tablet by mouth three times a day. (Patient not taking: Reported on 12/22/2023) omeprazole (PRILOSEC) 20 mg capsule Take 1 capsule by mouth two times a day. (Patient not taking: Reported on 12/22/2023) famotidine (PEPCID) 20 mg tablet Take 1 tablet by mouth two times a day as needed (acid reflux). (Patient not taking: Reported on 08/11/2023) Mirtazapine 45 mg disintegrating tablet (Patient not taking: Reported on 12/22/2023) prazosin (MINIPRESS) 2 mg cap Take 2 mg by mouth once daily. (Patient not taking: Reported on 12/22/2023) ALLERGIES: ALLERGIES No Known Allergies VITALS: BP 122/70 Pulse 86 Temp 36.6 ?C (97.8 ?F) Resp 16 Wt 84.5 kg (186 lb 4.6 oz) SpO2 97% BMI 25.27 kg/m? PHYSICAL EXAM: GEN: no acute distress, arousal varies from alert to drowsy HEENT: wearing sunglasses, bruising around the eye, MMM NECK: supple, no lymphadenopathy, no thyromegaly HEART: regular rate, regular rhythm, no murmurs LUNGS: clear to auscultation, no wheezes or crackles, no increased WOB ABD: soft, non-distended, no masses palpated, non-tender EXT: no clubbing, no cyanosis, trace sock line edema FEET: No erythema, edema, ecchymosis, or deformity. Tender balls of the feet midline. No focal bony tenderness. Fine touch sensation intact. Capillary refill less than 2 seconds. Normal gait. BACK: Normal curvature of spine. No midline tenderness. No paraspinal tenderness. Straight leg test negative. Deep tendon reflexes 2+/4 at patellas. Normal lower extremity strength. PSYCH: Labile mood, often drowsy with slurred speech with intermittent mild agitation, poor concentration, no pressured speech. ASSESSMENT/PLAN: 1. Acute midline low back pain without sciatica - ICD9: 724.2, ICD10: M54.50 (primary diagnosis) 2. Foot pain, bilateral - ICD9: 729.5, ICD10: M79.671, M79.672 - UA DIP, URINE (POC) - negative/normal - ACETAMINOPHEN 325 MG TABLET Scheduled follow up with primary care. 3. Heartburn - ICD9: 787.1, ICD10: R12 Currently off all medications. He should have omeprazole refills at the pharmacy and resume taking it. 4. Schizoaffective disorder, unspecified type (HCC) - ICD9: 295.70, ICD10: F25.9 Reports he does not know if he had a follow up scheduled after psychiatric discharge. Gill Jasso MD Allergies As of Date: 12/22/2023 (No Known Allergies) Date Reviewed: 12/22/2023 Reviewed by: Mariah Rodriguez MA - Fully Assessed Reason for Visit: Pain (foot) [760] Primary Visit Diagnosis:Acute midline low back pain without sciatica [M54.50] Other Visit Diagnoses:Foot pain, bilateral [M79.671, M79.672] Heartburn [R12] Schizoaffective disorder, unspecified type (HCC) [F25.9] Order(s):UA DIP, URINE (POC) [[id number]] Order #: [id number]. #:[id number] acetaminophen (TYLENOL) 325 mg tabletTake 2 tablets by mouth every 6 hours as needed for pain for up to 7 days.Disp: 45 tabletRfl: 0 Prescriptions as of 12/22/2023 - acetaminophen (TYLENOL) 325 mg tablet Take 2 tablets by mouth every 6 hours as needed for pain for up to 7 days. - clonazePAM (KLONOPIN) 0.5 mg tablet - gabapentin (NEURONTIN) 600 mg tablet Take 1 tablet by mouth three times a day. - omeprazole (PRILOSEC) 20 mg capsule Take 1 capsule by mouth two times a day. - famotidine (PEPCID) 20 mg tablet Take 1 tablet by mouth two times a day as needed (acid reflux). - Mirtazapine 45 mg disintegrating tablet - prazosin (MINIPRESS) 2 mg cap Take 2 mg by mouth once daily. Problem List As Of Date 12/22/2023 Noted Resolved Bipolar disorder (HCC) [F31.9] 12/15/2013 Schizoaffective disorder (HCC) [F25. (more content not included)... Normal [facility] UA DIP, URINE (POC)on 2023 BILIRUBIN UA (POCT) Negative Negative [facility] CLARITY UA (POCT) Clear [facility] COLOR UA (POCT) Yellow [facility] GLUCOSE UA (POCT) Negative Negative mg/dL [facility] Hemoglobin Ql (U) Negative Negative [facility] KETONE UA (POCT) Negative Negative mg/dL [facility] LEUKOCYTES UA (POCT) Negative Negative [facility] NITRITE UA (POCT) Negative Negative [facility] PH UA (POCT) 5.5 4.5 - 8.0 [facility] Protein Ql (U) Negative Negative mg/dL [facility] SPECIFIC GRAVITY UA (POCT) >=1.030 1.005 - 1.030 [facility] UROBILINOGEN UA (POCT) 0.2 Mary l E.U./dL [facility] Location:[facility], [address] [place] [address], [place], [place], [id number] [place] [address] POINT OF CARE [facility] Creatine Kinaseon 09-29-2023 CK [Catalytic activity/Vol] 164 U/L Normal 20-200 [facility] Comment on above: Performed By: #### C K #### [address] [address] Emissions Inspector: Artur Mauro MD Lithiumon 09-29-2023 [place] [Moles/Vol] mmol/L Low 0.50-1.50 [facility] Comment on above: Performed By: #### L IC #### [address] [address] Emissions Inspector: Artur Mauro MD Date last dose, Unknown Normal [facility] Comment on above: Performed By: #### L IC #### [address] [address] Emissions Inspector: Artur Mauro MD Dose amount, Unknown Normal [facility] Comment on above: Performed By: #### L IC #### [address] [place] [address] Emissions Inspector: Artur Mauro MD Time last dose, Unknown Normal [facility] Comment on above: Performed By: #### L IC #### [address] [place] [address] Emissions Inspector: Artur Mauro MD [place] [Moles/Vol] 0.1 mmol/L Low 0.50-1.50 [facility] Comment on above: Performed By: #### L IC #### [place] [place] [address] Emissions Inspector: Artur Mauro MD Date last dose, Unknown Normal [facility] Comment on above: Performed By: #### L IC #### [address] [place] [address] Emissions Inspector: Artur Mauro MD Dose amount, Unknown Normal [facility] Comment on above: Performed By: #### L IC #### [address] [place] [address] Emissions Inspector: Artur Mauro MD Time last dose, Unknown Normal [facility] Comment on above: Performed By: #### L IC #### [address] [place] [address] Emissions Inspector: Artur Mauro MD CBC with Diffon 09-28-2023 Abs. Basophil 0.03 k/uL Normal 0.00-0.20 [facility] Comment on above: Performed By: #### YAZMIN VALDOVINOS CP #### [address] [place] [address] Emissions Inspector: Artur Mauro MD Abs.Imm.Granulocyte 0.03 k/uL Normal 0.00-0.58 [facility] Comment on above: Performed By: #### YAZMIN VALDOVINOS, CP #### [address] [place] [address] Emissions Inspector: Artur Mauro MD Abs.Neutrophil (Seg) 5.19 k/uL Normal 1.80-7.30 [facility] Comment on above: Performed By: #### C YAZMIN GARCIA, CP #### [address] [place] [address] Emissions Inspector: Artur Mauro MD Basophils/100 WBC (Bld) 0 % Normal 0.0-2.0 [facility] Comment on above: Performed By: #### Renae GARCIA EDTOX, CP #### [place] [address] Emissions Inspector: Artur Mauro MD Eosinophils (Bld) [#/Vol] 0.08 10*3/uL Normal 0.05-0.50 [facility] Comment on above: Performed By: #### Renae GARCIA EDTOX, CP #### [place] [address] Emissions Inspector: Artur Mauro MD Eosinophils/100 WBC (Bld) 1 % Normal 0-6 [facility] Comment on above: Performed By: #### MANDEEP VALDOVINOSX, CP #### [place] [address] Emissions Inspector: Artur Mauro MD Erythrocyte distribution width (RBC) [Ratio] 13.5 % Normal 11.5-15.0 [facility] Comment on above: Performed By: #### MANDEEP VALDOVINOSX, CP #### [place] [address] Emissions Inspector: Artur Mauro MD Hematocrit (Bld) [Volume fraction] 46.1 % Normal 37.0-54.0 [facility] Comment on above: Performed By: #### Renae GARCIA EDTOX, CP #### [place] [address] Emissions Inspector: Artur Mauro MD Hemoglobin (Bld) [Mass/Vol] 16.0 g/dL Normal 12.5-16.5 [facility] Comment on above: Performed By: #### C BCWD, EDTOX, CP #### [address] [place] [address] Emissions Inspector: Artur Mauro MD Immature granulocytes/100 WBC (Bld) 0 % Normal 0.0-5.0 [facility] Comment on above: Performed By: #### C JOSE EDTOX, CP #### [address] [place] [address] Emissions Inspector: Artur Mauro MD Lymphocytes (Bld) [#/Vol] 2.09 10*3/uL Normal 1.50-4.00 [facility] Comment on above: Performed By: #### C JOSE EDTOX, CP #### [address] [place] [address] Emissions Inspector: Artur Mauro MD Lymphocytes/100 WBC (Bld) 27 % Normal 20.0-42.0 [facility] Comment on above: Performed By: #### C JOSE EDTOX, CP #### [address] [place] [address] Emissions Inspector: Artur Mauro MD MCH (RBC) [Entitic mass] 30.8 pg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 Clinical correlation is essential. Serum or plasma urea nitroge n measurement (mass/volume)Ordered By: Irasema Portillo on 06-14-2023 Urea nitrogen [Mass/Vol] 18 mg/dL 7-18 [facility] Thin prep Papanicolaou smear with manual screeningOrdered By: Bev Mcgarry on 06-14-2023 Thin prep Papanicolaou smear with manual screening 71 mg/dL 74-106 [facility] Comment on above: MANAGEMENT OF PATIEN T CARE PER NURSING PROTOCOL Thin prep Papanicolaou smear with manual screeningOrdered By: Irasema Portillo on 06-14-2023 Thin prep Papanicolaou smear with manual screening 4 5-15 [facility] Urine phencyclidine (PCP) de tectionOrdered By: Irasema Portillo on 06-14-2023 Phencyclidine Ql (U) Negative < 25 ng/mL [facility] Absolute lymphocyte countOrd ered By: Monty Mendoza on 06-12-2023 Lymphocytes Auto (Unsp spec) [#/Vol] 2.28 10*3/uL 0.83-4.51 [facility] Automated lymphocyte count a s percentage of total leukocytesOrdered By: Monty Mendoza on 06-12-2023 Lymphocytes/100 WBC Auto (Unsp spec) 37.1 % 19-41 [facility] Basophil percentageOrdered B y: Monty Mendoza on 06-12-2023 Basophils/100 WBC (Bld) 0.5 % 0-1 [facility] Bilirubin [Mass/Vol] 0.40 mg/dL 0.20-1.00 [facility] Comment on above: For patients on eltr ombopag therapy, use of [place] TBIL is not recommended. Chloride [Moles/Vol] 111 mmol/L 98-107 [facility] Eosinophils/100 WBC (Bld) 0.5 % 0-5 [facility] Glucose [Mass/Vol] 81 mg/dL 74-106 [facility] Hemoglobin (Bld) [Mass/Vol] 13.2 g/dL 13.0-16.5 [facility] Monocytes/100 WBC (Bld) 7.7 % 0-10 [facility] Neutrophils (Bld) [#/Vol] 3.3 10*3/uL 2.0-7.7 [facility] Neutrophils/100 WBC (Bld) 53.7 % 47-70 [facility] Potassium [Moles/Vol] 3.8 mmol/L 3.5-5.1 [facility] Protein [Mass/Vol] 6.7 g/dL 6.4-8.2 [facility] Sodium [Moles/Vol] 143 mmol/L 136-145 [facility] WBC (Bld) [#/Vol] 6.1 10*3/uL 4.4-11.0 [facility] Determination of erythrocyte mean corpuscular volume (MCV)Ordered By: Monty Mendoza on 06-12-2023 MCV (RBC) [Entitic vol] 87.8 fL 80-94 [facility] Erythrocyte distribution wid th ratioOrdered By: Monty Mendoza on 06-12-2023 Erythrocyte distribution width (RBC) [Ratio] 13.4 % 11.6-14.6 [facility] Erythrocyte distribution wid th standard deviationOrdered By: Montyreal Mendoza on 06-12-2023 Erythrocyte distribution width (RBC) [Entitic vol] 43.3 fL 35.1-43.9 [facility] Hematocrit Auto (Bld) [Volum e fraction]Ordered By: Monty Mendoza on 06-12-2023 Hematocrit (Bld) [Volume fraction] 38.1 % 40-54 [facility] Immature granulocytes/100 WB C Auto (Bld)Ordered By: Monty Mendoza on 06-12-2023 Immature granulocytes/100 WBC (Bld) 0.500 % 0.0-0.9 [facility] Comment on above: IG% - Immature Granu locytes (promyelocytes, myelocytes and metamyelocytes) > 1% indicates that a LEFT SHIFT is Present. Laboratory - Chemistry and C hemistry - challengeOrdered By: Monty Mendoza on 06-12-2023 Albumin/Globulin [Mass ratio] 1.1 {ratio} 0.9-2.4 [facility] ALP [Catalytic activity/Vol] 55 U/L 45-117 [facility] ALT [Catalytic activity/Vol] 20 U/L 16-61 [facility] CO2 [Moles/Vol] 28.0 mmol/L 21.0-32.0 [facility] Globulin (S) [Mass/Vol] 3.2 g/dL 2.2-4.2 [facility] Urea nitrogen/Creatinine [Mass ratio] 12.2 mg/mg 10-20 [facility] Laboratory - Drug toxicology Ordered By: Monty Mendoza on 06-12-2023 Amphetamines Ql (U) Negative <1000 ng/mL [facility] Benzodiazepines Ql (U) Negative < 200 ng/mL [facility] Cannabinoids Screen Ql (U) Positive < 50 ng/mL [facility] Cocaine Ql (U) Negative < 300 ng/mL [facility] Opiates Ql (U) Negative < 300 ng/mL [facility] Laboratory - Hematology and Cell countsOrdered By: Monty Mendoza on 06-12-2023 MCH (RBC) [Entitic mass] 30.4 pg 27.0-32.0 [facility] MCHC (RBC) [Mass/Vol] 34.6 g/dL 32-36 [facility] Nucleated RBC/100 WBC (Bld) [Ratio] 0 % 0-5 [facility] Platelet mean volume (Bld) [Entitic vol] 7.9 fL 6.2-12.0 [facility] Platelets (Bld) [#/Vol] 373 10*3/uL 150-450 [facility] No Panel InformationOrdered By: Monty Mendoza on 06-12-2023 Estimated Creatinine Clearance Calc 91.40 ml/min [facility] Estimated GFR (MDRD) Amer 79 mL/min >60 [facility] Comment on above: GFR Calc Estimated GFR (MDRD) Non-Af Amer 65 mL/min >60 [facility] Comment on above: Non- GFR Calc Ethyl Alcohol Level < 3.0 mg/dL [facility] Comment on above: The serum:whole bloo d ethanol ratio is approximately 1.14and varies slightly with hematocrit. Medical Alcohol reference interval and critical value innon-tolerant individuals; 50 - 100 Impairment 100 Intoxication 100 - 250 Severe Poisoning 250 - 400 Deep/possible fatal coma MDMA (Ecstasy) Screen Negative < 500 ng/mL [facility] Urine Barbiturates Screen Negative < 200 ng/mL [facility] Urine Drug Screen Comment [facility] Comment on above: CONFIRMATORY TESTING FOR ALL POSITIVE URINE DRUG SCREENRESULTS WILL ONLY BE SENT OUT UPON PHYSICIAN ORDER. [facility]IST[facility] Urine Drug Screen methods provide only preliminaryanalytical test results. A more specific alternate chemicalmethod must be used in order to obtain a confirmedanalytical result. Gas chromatography/mass spectrometery(GC/MS) is the preferred confirmatory method. Clinicalconsideration and professional judgement should be appliedto any drug of abuse test result, particularly whenpreliminary positive results are used. URINE TCA TESTING MUST BE ORDERED SEPARATELY. USE TESTMNEMONIC: [facility] Urine Methadone Screen Negative < 300 ng/mL [facility] RBC Auto (Bld) [#/Vol]Ordere d By: Monty Mendoza on 06-12-2023 RBC (Bld) [#/Vol] 4.34 10*6/uL 4.6-6.2 [facility] Serum or plasma calcium natty urement (mass/volume)Ordered By: Monty Mendoza on 06-12-2023 Calcium [Mass/Vol] 8.7 mg/dL 8.5-10.1 [facility] Serum or plasma creatinine m easurement (mass/volume)Ordered By: Monty Mendoza on 06-12-2023 Creatinine [Mass/Vol] 1.31 mg/dL 0.70-1.30 [facility] Comment on above: The validity of the calculated GFR & GFRAA in patients over 70 years has not been determined. Clinical correlation is essential. Serum or plasma urea nitroge n measurement (mass/volume)Ordered By: Monty Mendoza on 06-12-2023 Urea nitrogen [Mass/Vol] 16 mg/dL 7-18 [facility] Thin prep Papanicolaou smear with manual screeningOrdered By: Monty Mendoza on 06-12-2023 Thin prep Papanicolaou smear with manual screening 3.5 g/dL 3.2-5.0 [facility] Thin prep Papanicolaou smear with manual screening 16 U/L 15-37 [facility] Thin prep Papanicolaou smear with manual screening 4 5-15 [facility] Urine phencyclidine (PCP) de tectionOrdered By: Monty Mendoza on 06-12-2023 Phencyclidine Ql (U) Negative < 25 ng/mL [facility] Absolute lymphocyte countOrd ered By: Adin Enriquez on 06-10-2023 Lymphocytes Auto (Unsp spec) [#/Vol] 2.56 10*3/uL 0.83-4.51 [facility] Automated lymphocyte count a s percentage of total leukocytesOrdered By: Aidn Enriquez on 06-10-2023 Lymphocytes/100 WBC Auto (Unsp spec) 44.4 % 19-41 [facility] Basophil percentageOrdered B y: Adin Enriquez on 06-10-2023 Basophils/100 WBC (Bld) 0.3 % 0-1 [facility] Chloride [Moles/Vol] 112 mmol/L 98-107 [facility] Eosinophils/100 WBC (Bld) 0.5 % 0-5 [facility] Glucose [Mass/Vol] 99 mg/dL 74-106 [facility] Hemoglobin (Bld) [Mass/Vol] 13.3 g/dL 13.0-16.5 [facility] Monocytes/100 WBC (Bld) 10.6 % 0-10 [facility] Neutrophils (Bld) [#/Vol] 2.5 10*3/uL 2.0-7.7 [facility] Neutrophils/100 WBC (Bld) 43.5 % 47-70 [facility] Potassium [Moles/Vol] 3.8 mmol/L 3.5-5.1 [facility] Sodium [Moles/Vol] 146 mmol/L 136-145 [facility] WBC (Bld) [#/Vol] 5.8 10*3/uL 4.4-11.0 [facility] Determination of erythrocyte mean corpuscular volume (MCV)Ordered By: Adin Enriquez on 06-10-2023 MCV (RBC) [Entitic vol] 86.7 fL 80-94 [facility] Erythrocyte distribution wid th ratioOrdered By: Adin Enriquez on 06-10-2023 Erythrocyte distribution width (RBC) [Ratio] 13.5 % 11.6-14.6 [facility] Erythrocyte distribution wid th standard deviationOrdered By: Adin Enriquez on 06-10-2023 Erythrocyte distribution width (RBC) [Entitic vol] 42.7 fL 35.1-43.9 [facility] Hematocrit Auto (Bld) [Volum e fraction]Ordered By: Adin Enriquez on 06-10-2023 Hematocrit (Bld) [Volume fraction] 38.6 % 40-54 [facility] Immature granulocytes/100 WB C Auto (Bld)Ordered By: Adin Enriquez on 06-10-2023 Immature granulocytes/100 WBC (Bld) 0.700 % 0.0-0.9 [facility] Comment on above: IG% - Immature Granu locytes (promyelocytes, myelocytes and metamyelocytes) > 1% indicates that a LEFT SHIFT is Present. Laboratory - Chemistry and C hemistry - challengeOrdered By: Adin Enriquez on 06-10-2023 CO2 [Moles/Vol] 26.0 mmol/L 21.0-32.0 [facility] Urea nitrogen/Creatinine [Mass ratio] 11.8 mg/mg 10-20 [facility] Laboratory - Hematology and Cell countsOrdered By: Adin Enriquez on 06-10-2023 MCH (RBC) [Entitic mass] 29.9 pg 27.0-32.0 [facility] MCHC (RBC) [Mass/Vol] 34.5 g/dL 32-36 [facility] Nucleated RBC/100 WBC (Bld) [Ratio] 0 % 0-5 [facility] Platelet mean volume (Bld) [Entitic vol] 7.8 fL 6.2-12.0 [facility] Platelets (Bld) [#/Vol] 336 10*3/uL 150-450 [facility] No Panel InformationOrdered By: Adin Enriquez on 06-10-2023 Estimated Creatinine Clearance Calc 108.70 ml/min [facility] Estimated GFR (MDRD) Amer 96 mL/min >60 [facility] Comment on above: GFR Calc Estimated GFR (MDRD) Non-Af Amer 80 mL/min >60 [facility] Comment on above: Non- GFR Calc Troponin I High Sensitivity 5 pg/mL 3.0-78.0 [facility] Comment on above: Please Note: New M[place]le t Units and Gender Specific Reference Ranges. For more information see Policy Stat Procedure [place] High Sensitivity Troponin (TNIH) and attachments. RBC Auto (Bld) [#/Vol]Ordere d By: Adin Enriquez on 06-10-2023 RBC (Bld) [#/Vol] 4.45 10*6/uL 4.6-6.2 [facility] Serum or plasma calcium natty urement (mass/volume)Ordered By: Adin Enriquez on 06-10-2023 Calcium [Mass/Vol] 8.2 mg/dL 8.5-10.1 [facility] Serum or plasma creatinine m easurement (mass/volume)Ordered By: Adin Enriquez on 06-10-2023 Creatinine [Mass/Vol] 1.10 mg/dL 0.70-1.30 [facility] Comment on above: The validity of the calculated GFR & GFRAA in patients over 70 years has not been determined. Clinical correlation is essential. Serum or plasma urea nitroge n measurement (mass/volume)Ordered By: Adin Enriquez on 06-10-2023 Urea nitrogen [Mass/Vol] 13 mg/dL 7-18 [facility] Thin prep Papanicolaou smear with manual screeningOrdered By: Adin Enriquez on 06-10-2023 Thin prep Papanicolaou smear with manual screening 8 5-15 [facility] Hemoglobin A1Con 11-25-2022 HbA1c (Bld) [Mass fraction] 5.3 % Normal 4.0-5.6 [facility] Comment on above: Performed By: #### G LYHGB #### [place] [address] Emissions Inspector: Artur Mauro MD Lipid Profileon 11-25-2022 Cholesterol [Mass/Vol] 156 mg/dL Normal <200 [facility] Comment on above: Performed By: #### L IPR #### [address] [address] Emissions Inspector: Artur Mauro MD Cholesterol in HDL [Mass/Vol] 35 mg/dL Low >40 [facility] Comment on above: Performed By: #### L IPR #### [place] [address] Emissions Inspector: Artur Mauro MD Cholesterol in LDL [Mass/Vol] 102 mg/dL High <100 [facility] Comment on above: Performed By: #### L IPR #### [place] [address] Emissions Inspector: Artur Mauro MD Cholesterol in VLDL [Mass/Vol] 19 mg/dL Normal [facility] Comment on above: Result Comment: No n ormal range established. Performed By: #### L IPR #### [place] [address] Emissions Inspector: Artur Mauro MD Triglyceride [Mass/Vol] 96 mg/dL Normal <150 [facility] Comment on above: Performed By: #### L IPR #### [place] [address] Emissions Inspector: Artur Mauro MD Absolute lymphocyte countOrd ered By: Fito Nunn on 11-24-2022 Lymphocytes Auto (Unsp spec) [#/Vol] 2.59 10*3/uL 0.83-4.51 [facility] Acetaminophen level (mass/vo lume)Ordered By: Fito Nunn on 11-24-2022 Acetaminophen (Unsp spec) [Mass/Vol] < 2.0 ug/mL 10.0-30.0 [facility] Basophil percentageOrdered B y: Fito Nunn on 11-24-2022 Basophils/100 WBC (Bld) 0.5 % 0-1 [facility] Bilirubin [Mass/Vol] 0.20 mg/dL 0.20-1.00 [facility] Comment on above: For patients on eltr ombopag therapy, use of [place] TBIL is not recommended. Chloride [Moles/Vol] 112 mmol/L 98-107 [facility] Eosinophils/100 WBC (Bld) 3.3 % 0-5 [facility] Glucose [Mass/Vol] 97 mg/dL 74-106 [facility] Neutrophils (Bld) [#/Vol] 3.1 10*3/uL 2.0-7.7 [facility] Neutrophils/100 WBC (Bld) 48.1 % 47-70 [facility] Potassium [Moles/Vol] 4.1 mmol/L 3.5-5.1 [facility] Protein [Mass/Vol] 6.4 g/dL 6.4-8.2 [facility] Sodium [Moles/Vol] 142 mmol/L 136-145 [facility] WBC (Bld) [#/Vol] 6.4 10*3/uL 4.4-11.0 [facility] Blood erythrocytes count (nu mber/volume)Ordered By: Fito Nunn on 11-24-2022 RBC (Bld) [#/Vol] 4.65 10*6/uL 4.6-6.2 [facility] Blood hemoglobin measurement (mass/volume)Ordered By: Fito Nunn on 11-24-2022 Hemoglobin (Bld) [Mass/Vol] 14.0 g/dL 13.0-16.5 [facility] Blood lymphocytes/100 leukoc ytesOrdered By: Fito Nunn on 11-24-2022 Lymphocytes/100 WBC (Bld) 40.7 % 19-41 [facility] Blood monocytes/100 leukocyt esOrdered By: Fito Nunn on 11-24-2022 Monocytes/100 WBC (Bld) 7.2 % 0-10 [facility] Blood platelet mean volumeOr dered By: Fito Nunn on 11-24-2022 Platelet mean volume (Bld) [Entitic vol] 8.2 fL 6.2-12.0 [facility] COVID-19 virus antigen assay Ordered By: Fito Nunn on 11-24-2022 SARS-CoV-2 (COVID-19) Ag IA.rapid Ql (Resp) [facility] Determination of erythrocyte mean corpuscular volume (MCV)Ordered By: Fito Nunn on 11-24-2022 MCV (RBC) [Entitic vol] 89.0 fL 80-94 [facility] Hematocrit Auto (Bld) [Volum e fraction]Ordered By: Fito Nunn on 11-24-2022 Hematocrit (Bld) [Volume fraction] 41.4 % 40-54 [facility] Laboratory - Chemistry and C hemistry - challengeOrdered By: Fito Nunn on 11-24-2022 ALP [Catalytic activity/Vol] 64 U/L 45-117 [facility] ALT [Catalytic activity/Vol] 37 U/L 16-61 [facility] CO2 [Moles/Vol] 26.0 mmol/L 21.0-32.0 [facility] Globulin (S) [Mass/Vol] 3.0 g/dL 2.2-4.2 [facility] Urea nitrogen/Creatinine [Mass ratio] 15.6 mg/mg 10-20 [facility] Laboratory - Drug toxicology Ordered By: Fito Nunn on 11-24-2022 Amphetamines Ql (U) Negative <1000 ng/mL [facility] Benzodiazepines Ql (U) Negative < 200 ng/mL [facility] Cannabinoids Screen Ql (U) Positive < 50 ng/mL [facility] Cocaine Ql (U) Negative < 300 ng/mL [facility] Opiates Ql (U) Negative < 300 ng/mL [facility] Laboratory - Hematology and Cell countsOrdered By: Fito Nunn on 11-24-2022 Erythrocyte distribution width (RBC) [Entitic vol] 43.0 fL 35.1-43.9 [facility] Erythrocyte distribution width (RBC) [Ratio] 13.2 % 11.6-14.6 [facility] Immature granulocytes/100 WBC (Bld) 0.200 % 0.0-0.9 [facility] Comment on above: IG% - Immature Granu locytes (promyelocytes, myelocytes and metamyelocytes) > 1% indicates that a LEFT SHIFT is Present. MCH (RBC) [Entitic mass] 30.1 pg 27.0-32.0 [facility] Nucleated RBC/100 WBC (Bld) [Ratio] 0 % 0-5 [facility] MCHC Auto (RBC) [Mass/Vol]Or dered By: Fito Nunn on 11-24-2022 MCHC (RBC) [Mass/Vol] 33.8 g/dL 32-36 [facility] No Panel InformationOrdered By: Fito Nunn on 11-24-2022 MDMA (Ecstasy) Screen Negative < 500 ng/mL [facility] Urine Barbiturates Screen Negative < 200 ng/mL [facility] Urine Drug Screen Comment [facility] Comment on above: CONFIRMATORY TESTING FOR ALL POSITIVE URINE DRUG SCREENRESULTS WILL ONLY BE SENT OUT UPON PHYSICIAN ORDER. [facility] Urine Drug Screen methods provide only preliminaryanalytical test results. A more specific alternate chemicalmethod must be used in order to obtain a confirmedanalytical result. Gas chromatography/mass spectrometery(GC/MS) is the preferred confirmatory method. Clinicalconsideration and professional judgement should be appliedto any drug of abuse test result, particularly whenpreliminary positive results are used. URINE TCA TESTING MUST BE ORDERED SEPARATELY. USE TESTMNEMONIC: [facility] Urine Methadone Screen Negative < 300 ng/mL [facility] Estimated Creatinine Clearance Calc 82.23 ml/min [facility] Estimated GFR (MDRD) Amer 76 mL/min >60 [facility] Comment on above: GFR Calc Estimated GFR (MDRD) Non-Af Amer 63 mL/min >60 [facility] Comment on above: Non- GFR Calc Ethyl Alcohol Level < 3.0 mg/dL [facility] Comment on above: The serum:whole bloo d ethanol ratio is approximately 1.14and varies slightly with hematocrit. Medical Alcohol reference interval and critical value innon-tolerant individuals; 50 - 100 Impairment 100 Intoxication 100 - 250 Severe Poisoning 250 - 400 Deep/possible fatal coma Platelets bldOrdered By: Mariano Nunn on 11-24-2022 Platelets (Bld) [#/Vol] 277 10*3/uL 150-450 [facility] Serum or plasma albumin natty urement (mass/volume)Ordered By: Fito Nunn on 11-24-2022 Albumin [Mass/Vol] 3.4 g/dL 3.2-5.0 [facility] Serum or plasma albumin/glob ulin mass ratioOrdered By: Fito Nunn on 11-24-2022 Albumin/Globulin [Mass ratio] 1.1 {ratio} 0.9-2.4 [facility] Serum or plasma calcium natty urement (mass/volume)Ordered By: Fito Nunn on 11-24-2022 Calcium [Mass/Vol] 8.3 mg/dL 8.5-10.1 [facility] Serum or plasma creatinine m easurement (mass/volume)Ordered By: Fito Nunn on 11-24-2022 Creatinine [Mass/Vol] 1.35 mg/dL 0.70-1.30 [facility] Comment on above: The validity of the calculated GFR & GFRAA in patients over 70 years has not been determined. Clinical correlation is essential. Serum or plasma salicylates measurement (mass/volume)Ordered By: Fito Nunn on 11-24-2022 Salicylates [Mass/Vol] mg/dL 2.8-20.0 [facility] Serum or plasma urea nitroge n measurement (mass/volume)Ordered By: Fito Nunn on 11-24-2022 Urea nitrogen [Mass/Vol] 21 mg/dL 7-18 [facility] Thin prep Papanicolaou smear with manual screeningOrdered By: Fito Nunn on 11-24-2022 Thin prep Papanicolaou smear with manual screening 35 U/L 15-37 [facility] Thin prep Papanicolaou smear with manual screening 4 5-15 [facility] Urine phencyclidine (PCP) de tectionOrdered By: Fito Nunn on 11-24-2022 Phencyclidine Ql (U) Negative < 25 ng/mL [facility] Absolute lymphocyte countOrd ered By: Stacy Gonzalez on 11-13-2022 Lymphocytes Auto (Unsp spec) [#/Vol] 1.70 10*3/uL 0.83-4.51 [facility] Basophil percentageOrdered B y: Stacy Gonzalez on 11-13-2022 Basophils/100 WBC (Bld) 0.2 % 0-1 [facility] Chloride [Moles/Vol] 109 mmol/L 98-107 [facility] Eosinophils/100 WBC (Bld) 1.2 % 0-5 [facility] Glucose [Mass/Vol] 101 mg/dL 74-106 [facility] Comment on above: Fasting Glucose resu lt from 100 to 125 mg/dL suggests IMPAIRED HOMEOSTASIS per A.D.A. criteria. Neutrophils (Bld) [#/Vol] 6.3 10*3/uL 2.0-7.7 [facility] Neutrophils/100 WBC (Bld) 73.1 % 47-70 [facility] Potassium [Moles/Vol] 3.6 mmol/L 3.5-5.1 [facility] Sodium [Moles/Vol] 141 mmol/L 136-145 [facility] WBC (Bld) [#/Vol] 8.6 10*3/uL 4.4-11.0 [facility] Blood erythrocytes count (nu mber/volume)Ordered By: Stacy Gonzalez on 11-13-2022 RBC (Bld) [#/Vol] 4.84 10*6/uL 4.6-6.2 [facility] Blood hemoglobin measurement (mass/volume)Ordered By: Stacy Gonzalez on 11-13-2022 Hemoglobin (Bld) [Mass/Vol] 14.8 g/dL 13.0-16.5 [facility] Blood lymphocytes/100 leukoc ytesOrdered By: Stacy Gonzalez on 11-13-2022 Lymphocytes/100 WBC (Bld) 19.7 % 19-41 [facility] Blood monocytes/100 leukocyt esOrdered By: Stayc Gonzalez on 11-13-2022 Monocytes/100 WBC (Bld) 5.7 % 0-10 [facility] Blood platelet mean volumeOr dered By: Stacy Gonzalez on 11-13-2022 Platelet mean volume (Bld) [Entitic vol] 8.6 fL 6.2-12.0 [facility] Determination of erythrocyte mean corpuscular volume (MCV)Ordered By: Stacy Gonzalez on 11-13-2022 MCV (RBC) [Entitic vol] 87.6 fL 80-94 [facility] Hematocrit Auto (Bld) [Volum e fraction]Ordered By: Stacy Gonzalez on 11-13-2022 Hematocrit (Bld) [Volume fraction] 42.4 % 40-54 [facility] Influenza virus A and B and SARS-CoV-2 (COVID-19) Ag panel - Upper respiratory specimOrdered By: Stacy Gonzalez on 11-13-2022 SARS-CoV-2 (COVID-19) RNA ALEX+probe Ql (Resp) [facility] Laboratory - Chemistry and C hemistry - challengeOrdered By: Stacy Gonzalez on 11-13-2022 CO2 [Moles/Vol] 26.0 mmol/L 21.0-32.0 [facility] Urea nitrogen/Creatinine [Mass ratio] 10.7 mg/mg 10-20 [facility] Laboratory - Drug toxicology Ordered By: Stacy Gonzalez on 11-13-2022 Amphetamines Ql (U) Negative <1000 ng/mL [facility] Benzodiazepines Ql (U) Negative < 200 ng/mL [facility] Cannabinoids Screen Ql (U) Positive < 50 ng/mL [facility] Cocaine Ql (U) Negative < 300 ng/mL [facility] Opiates Ql (U) Negative < 300 ng/mL [facility] Laboratory - Hematology and Cell countsOrdered By: Stacy Gonzalez on 11-13-2022 Erythrocyte distribution width (RBC) [Entitic vol] 43.1 fL 35.1-43.9 [facility] Erythrocyte distribution width (RBC) [Ratio] 13.4 % 11.6-14.6 [facility] Immature granulocytes/100 WBC (Bld) 0.100 % 0.0-0.9 [facility] Comment on above: IG% - Immature Granu locytes (promyelocytes, myelocytes and metamyelocytes) > 1% indicates that a LEFT SHIFT is Present. MCH (RBC) [Entitic mass] 30.6 pg 27.0-32.0 [facility] Nucleated RBC/100 WBC (Bld) [Ratio] 0 % 0-5 [facility] MCHC Auto (RBC) [Mass/Vol]Or dered By: Stacy Gonzalez on 11-13-2022 MCHC (RBC) [Mass/Vol] 34.9 g/dL 32-36 [facility] No Panel InformationOrdered By: Stacy Gonzalez on 11-13-2022 MDMA (Ecstasy) Screen Negative < 500 ng/mL [facility] Urine Barbiturates Screen Negative < 200 ng/mL [facility] Urine Drug Screen Comment [facility] Comment on above: CONFIRMATORY TESTING FOR ALL POSITIVE URINE DRUG SCREENRESULTS WILL ONLY BE SENT OUT UPON PHYSICIAN ORDER. [facility] Urine Drug Screen methods provide only preliminaryanalytical test results. A more specific alternate chemicalmethod must be used in order to obtain a confirmedanalytical result. Gas chromatography/mass spectrometery(GC/MS) is the preferred confirmatory method. Clinicalconsideration and professional judgement should be appliedto any drug of abuse test result, particularly whenpreliminary positive results are used. URINE TCA TESTING MUST BE ORDERED SEPARATELY. USE TESTMNEMONIC: [facility] Urine Methadone Screen Negative < 300 ng/mL [facility] Estimated Creatinine Clearance Calc 74.50 ml/min [facility] Estimated GFR (MDRD) Amer 68 mL/min >60 [facility] Comment on above: GFR Calc Estimated GFR (MDRD) Non-Af Amer 56 mL/min >60 [facility] Comment on above: Non- GFR Calc Ethyl Alcohol Level < 3.0 mg/dL [facility] Comment on above: The serum:whole bloo d ethanol ratio is approximately 1.14and varies slightly with hematocrit. Medical Alcohol reference interval and critical value innon-tolerant individuals; 50 - 100 Impairment 100 Intoxication 100 - 250 Severe Poisoning 250 - 400 Deep/possible fatal coma Platelets bldOrdered By: Narayan Gonzalez on 11-13-2022 Platelets (Bld) [#/Vol] 213 10*3/uL 150-450 [facility] Serum or plasma calcium natty urement (mass/volume)Ordered By: Stacy Gonzalez on 11-13-2022 Calcium [Mass/Vol] 9.1 mg/dL 8.5-10.1 [facility] Serum or plasma creatinine m easurement (mass/volume)Ordered By: Stacy Gonzalez on 11-13-2022 Creatinine [Mass/Vol] 1.49 mg/dL 0.70-1.30 [facility] Comment on above: The validity of the calculated GFR & GFRAA in patients over 70 years has not been determined. Clinical correlation is essential. Serum or plasma urea nitroge n measurement (mass/volume)Ordered By: Stacy Gonzalez on 11-13-2022 Urea nitrogen [Mass/Vol] 16 mg/dL 7-18 [facility] Thin prep Papanicolaou smear with manual screeningOrdered By: Stacy Gonzalez on 11-13-2022 Thin prep Papanicolaou smear with manual screening 6 5-15 [facility] Urine phencyclidine (PCP) de tectionOrdered By: Stacy Gonzalez on 11-13-2022 Phencyclidine Ql (U) Negative < 25 ng/mL [facility] Absolute lymphocyte countOrd ered By: Sonny Harry on 11-11-2022 Lymphocytes Auto (Unsp spec) [#/Vol] 2.27 10*3/uL 0.83-4.51 [facility] Acetaminophen level (mass/vo lume)Ordered By: Sonny Harry on 11-11-2022 Acetaminophen (Unsp spec) [Mass/Vol] < 2.0 ug/mL 10.0-30.0 [facility] Basophil percentageOrdered B y: Sonny Harry on 11-11-2022 Basophils/100 WBC (Bld) 0.3 % 0-1 [facility] Chloride [Moles/Vol] 109 mmol/L 98-107 [facility] Eosinophils/100 WBC (Bld) 2.2 % 0-5 [facility] Glucose [Mass/Vol] 112 mg/dL 74-106 [facility] Comment on above: Fasting Glucose resu lt from 100 to 125 mg/dL suggests IMPAIRED HOMEOSTASIS per A.D.A. criteria. Neutrophils (Bld) [#/Vol] 3.5 10*3/uL 2.0-7.7 [facility] Neutrophils/100 WBC (Bld) 54.6 % 47-70 [facility] Potassium [Moles/Vol] 3.3 mmol/L 3.5-5.1 [facility] Sodium [Moles/Vol] 143 mmol/L 136-145 [facility] WBC (Bld) [#/Vol] 6.4 10*3/uL 4.4-11.0 [facility] Blood erythrocytes count (nu mber/volume)Ordered By: Sonny Harry on 11-11-2022 RBC (Bld) [#/Vol] 4.77 10*6/uL 4.6-6.2 [facility] Blood hemoglobin measurement (mass/volume)Ordered By: Sonny Harry on 11-11-2022 Hemoglobin (Bld) [Mass/Vol] 14.5 g/dL 13.0-16.5 [facility] Blood lymphocytes/100 leukoc ytesOrdered By: Sonny Harry on 11-11-2022 Lymphocytes/100 WBC (Bld) 35.2 % 19-41 [facility] Blood monocytes/100 leukocyt esOrdered By: Sonny Harry on 11-11-2022 Monocytes/100 WBC (Bld) 7.5 % 0-10 [facility] Blood platelet mean volumeOr dered By: Sonny Harry on 11-11-2022 Platelet mean volume (Bld) [Entitic vol] 8.7 fL 6.2-12.0 [facility] COVID-19 virus antigen assay Ordered By: Sonny Harry on 11-11-2022 SARS-CoV-2 (COVID-19) Ag IA.rapid Ql (Resp) [facility] Determination of erythrocyte mean corpuscular volume (MCV)Ordered By: Sonny Harry on 11-11-2022 MCV (RBC) [Entitic vol] 87.6 fL 80-94 [facility] Hematocrit Auto (Bld) [Volum e fraction]Ordered By: Sonny Harry on 11-11-2022 Hematocrit (Bld) [Volume fraction] 41.8 % 40-54 [facility] Laboratory - Chemistry and C hemistry - challengeOrdered By: Sonny Harry on 11-11-2022 CO2 [Moles/Vol] 28.0 mmol/L 21.0-32.0 [facility] Urea nitrogen/Creatinine [Mass ratio] 11.6 mg/mg 10-20 [facility] Laboratory - Drug toxicology Ordered By: Sonny Harry on 11-11-2022 Amphetamines Ql (U) Negative <1000 ng/mL [facility] Benzodiazepines Ql (U) Negative < 200 ng/mL [facility] Cannabinoids Screen Ql (U) Negative < 50 ng/mL [facility] Cocaine Ql (U) Negative < 300 ng/mL [facility] Opiates Ql (U) Negative < 300 ng/mL [facility] Laboratory - Hematology and Cell countsOrdered By: Sonny Harry on 11-11-2022 Erythrocyte distribution width (RBC) [Entitic vol] 43.2 fL 35.1-43.9 [facility] Erythrocyte distribution width (RBC) [Ratio] 13.4 % 11.6-14.6 [facility] Immature granulocytes/100 WBC (Bld) 0.200 % 0.0-0.9 [facility] Comment on above: IG% - Immature Granu locytes (promyelocytes, myelocytes and metamyelocytes) > 1% indicates that a LEFT SHIFT is Present. MCH (RBC) [Entitic mass] 30.4 pg 27.0-32.0 [facility] Nucleated RBC/100 WBC (Bld) [Ratio] 0 % 0-5 [facility] MCHC Auto (RBC) [Mass/Vol]Or dered By: Sonny Harry on 11-11-2022 MCHC (RBC) [Mass/Vol] 34.7 g/dL 32-36 [facility] No Panel InformationOrdered By: Sonny Harry on 11-11-2022 MDMA (Ecstasy) Screen Negative < 500 ng/mL [facility] Urine Barbiturates Screen Negative < 200 ng/mL [facility] Urine Drug Screen Comment [facility] Comment on above: CONFIRMATORY TESTING FOR ALL POSITIVE URINE DRUG SCREENRESULTS WILL ONLY BE SENT OUT UPON PHYSICIAN ORDER. [facility] Urine Drug Screen methods provide only preliminaryanalytical test results. A more specific alternate chemicalmethod must be used in order to obtain a confirmedanalytical result. Gas chromatography/mass spectrometery(GC/MS) is the preferred confirmatory method. Clinicalconsideration and professional judgement should be appliedto any drug of abuse test result, particularly whenpreliminary positive results are used. URINE TCA TESTING MUST BE ORDERED SEPARATELY. USE TESTMNEMONIC: [facility] Urine Methadone Screen Negative < 300 ng/mL [facility] Estimated Creatinine Clearance Calc 80.44 ml/min [facility] Estimated GFR (MDRD) Amer 74 mL/min >60 [facility] Comment on above: GFR Calc Estimated GFR (MDRD) Non-Af Amer 61 mL/min >60 [facility] Comment on above: Non- GFR Calc Ethyl Alcohol Level < 3.0 mg/dL [facility] Comment on above: The serum:whole bloo d ethanol ratio is approximately 1.14and varies slightly with hematocrit. Medical Alcohol reference interval and critical value innon-tolerant individuals; 50 - 100 Impairment 100 Intoxication 100 - 250 Severe Poisoning 250 - 400 Deep/possible fatal coma Platelets bldOrdered By: Julito Harry on 11-11-2022 Platelets (Bld) [#/Vol] 225 10*3/uL 150-450 [facility] Serum or plasma calcium natty urement (mass/volume)Ordered By: Sonny Harry on 11-11-2022 Calcium [Mass/Vol] 8.7 mg/dL 8.5-10.1 [facility] Serum or plasma creatinine m easurement (mass/volume)Ordered By: Sonny Harry on 11-11-2022 Creatinine [Mass/Vol] 1.38 mg/dL 0.70-1.30 [facility] Comment on above: The validity of the calculated GFR & GFRAA in patients over 70 years has not been determined. Clinical correlation is essential. Serum or plasma salicylates measurement (mass/volume)Ordered By: Sonny Harry on 11-11-2022 Salicylates [Mass/Vol] mg/dL 2.8-20.0 [facility] Serum or plasma urea nitroge n measurement (mass/volume)Ordered By: Sonny Harry on 11-11-2022 Urea nitrogen [Mass/Vol] 16 mg/dL 7-18 [facility] Thin prep Papanicolaou smear with manual screeningOrdered By: Sonny Harry on 11-11-2022 Thin prep Papanicolaou smear with manual screening 6 5-15 [facility] Urine phencyclidine (PCP) de tectionOrdered By: Sonny Harry on 11-11-2022 Phencyclidine Ql (U) Negative < 25 ng/mL [facility] Absolute lymphocyte countOrd ered By: Dr. Arceo on 09-20-2022 Lymphocytes Auto (Unsp spec) [#/Vol] 1.81 10*3/uL 0.83-4.51 [facility] Basophil percentageOrdered B y: Dr. Arceo on 09-20-2022 Basophils/100 WBC (Bld) 0.3 % 0-1 [facility] Chloride [Moles/Vol] 109 mmol/L 98-107 [facility] Eosinophils/100 WBC (Bld) 0.4 % 0-5 [facility] Glucose [Mass/Vol] 118 mg/dL 74-106 [facility] Comment on above: Fasting Glucose resu lt from 100 to 125 mg/dL suggests IMPAIRED HOMEOSTASIS per A.D.A. criteria. Neutrophils (Bld) [#/Vol] 4.9 10*3/uL 2.0-7.7 [facility] Neutrophils/100 WBC (Bld) 68.7 % 47-70 [facility] Potassium [Moles/Vol] 3.9 mmol/L 3.5-5.1 [facility] Sodium [Moles/Vol] 140 mmol/L 136-145 [facility] WBC (Bld) [#/Vol] 7.1 10*3/uL 4.4-11.0 [facility] Blood erythrocytes count (nu mber/volume)Ordered By: Dr. Arceo on 09-20-2022 RBC (Bld) [#/Vol] 4.77 10*6/uL 4.6-6.2 [facility] Blood hemoglobin measurement (mass/volume)Ordered By: Dr. Arceo on 09-20-2022 Hemoglobin (Bld) [Mass/Vol] 14.4 g/dL 13.0-16.5 [facility] Blood lymphocytes/100 leukoc ytesOrdered By: Dr. Arceo on 09-20-2022 Lymphocytes/100 WBC (Bld) 25.6 % 19-41 [facility] Blood monocytes/100 leukocyt esOrdered By: Dr. Arceo on 09-20-2022 Monocytes/100 WBC (Bld) 4.7 % 0-10 [facility] Blood platelet mean volumeOr dered By: Dr. Arceo on 09-20-2022 Platelet mean volume (Bld) [Entitic vol] 8.3 fL 6.2-12.0 [facility] Determination of erythrocyte mean corpuscular volume (MCV)Ordered By: Dr. Arceo on 09-20-2022 MCV (RBC) [Entitic vol] 87.6 fL 80-94 [facility] Hematocrit Auto (Bld) [Volum e fraction]Ordered By: Dr. Arceo on 09-20-2022 Hematocrit (Bld) [Volume fraction] 41.8 % 40-54 [facility] Laboratory - Chemistry and C hemistry - challengeOrdered By: Dr. Arceo on 09-20-2022 CO2 [Moles/Vol] 25.0 mmol/L 21.0-32.0 [facility] Urea nitrogen/Creatinine [Mass ratio] 10.8 mg/mg 10-20 [facility] Laboratory - Hematology and Cell countsOrdered By: Dr. Arceo on 09-20-2022 Erythrocyte distribution width (RBC) [Entitic vol] 44.5 fL 35.1-43.9 [facility] Erythrocyte distribution width (RBC) [Ratio] 14.0 % 11.6-14.6 [facility] Immature granulocytes/100 WBC (Bld) 0.300 % 0.0-0.9 [facility] Comment on above: IG% - Immature Granu locytes (promyelocytes, myelocytes and metamyelocytes) > 1% indicates that a LEFT SHIFT is Present. MCH (RBC) [Entitic mass] 30.2 pg 27.0-32.0 [facility] Nucleated RBC/100 WBC (Bld) [Ratio] 0 % 0-5 [facility] MCHC Auto (RBC) [Mass/Vol]Or dered By: Dr. Arceo on 09-20-2022 MCHC (RBC) [Mass/Vol] 34.4 g/dL 32-36 [facility] No Panel InformationOrdered By: Dr. Arceo on 09-20-2022 Estimated Creatinine Clearance Calc 85.39 ml/min [facility] Estimated GFR (MDRD) Amer 80 mL/min >60 [facility] Comment on above: GFR Calc Estimated GFR (MDRD) Non-Af Amer 66 mL/min >60 [facility] Comment on above: Non- GFR Calc Troponin I High Sensitivity 5 pg/mL 3.0-78.0 [facility] Comment on above: Please Note: New [place]le t Units and Gender Specific Reference Ranges. For more information see Policy Stat Procedure [place] High Sensitivity Troponin (TNIH) and attachments. Platelets bldOrdered By: Dr. Arceo on 09-20-2022 Platelets (Bld) [#/Vol] 233 10*3/uL 150-450 [facility] Serum or plasma calcium natty urement (mass/volume)Ordered By: Dr. Arceo on 09-20-2022 Calcium [Mass/Vol] 9.1 mg/dL 8.5-10.1 [facility] Serum or plasma creatinine m easurement (mass/volume)Ordered By: Dr. Arceo on 09-20-2022 Creatinine [Mass/Vol] 1.30 mg/dL 0.70-1.30 [facility] Comment on above: The validity of the calculated GFR & GFRAA in patients over 70 years has not been determined. Clinical correlation is essential. Serum or plasma urea nitroge n measurement (mass/volume)Ordered By: Dr. Arceo on 09-20-2022 Urea nitrogen [Mass/Vol] 14 mg/dL 7-18 [facility] Thin prep Papanicolaou smear with manual screeningOrdered By: Dr. Arceo on 09-20-2022 Thin prep Papanicolaou smear with manual screening 6 5-15 [facility] Absolute lymphocyte countOrd ered By: Dr. Nunn on 08-15-2022 Lymphocytes Auto (Unsp spec) [#/Vol] 3.00 10*3/uL 0.83-4.51 [facility] Basophil percentageOrdered B y: Dr. Nunn on 08-15-2022 Basophils/100 WBC (Bld) 0.4 % 0-1 [facility] Chloride [Moles/Vol] 109 mmol/L 98-107 [facility] Eosinophils/100 WBC (Bld) 2.4 % 0-5 [facility] Glucose [Mass/Vol] 101 mg/dL 74-106 [facility] Comment on above: Fasting Glucose resu lt from 100 to 125 mg/dL suggests IMPAIRED HOMEOSTASIS per A.D.A. criteria. Neutrophils (Bld) [#/Vol] 4.3 10*3/uL 2.0-7.7 [facility] Neutrophils/100 WBC (Bld) 53.5 % 47-70 [facility] Potassium [Moles/Vol] 3.7 mmol/L 3.5-5.1 [facility] Sodium [Moles/Vol] 141 mmol/L 136-145 [facility] WBC (Bld) [#/Vol] 8.1 10*3/uL 4.4-11.0 [facility] Blood erythrocytes count (nu mber/volume)Ordered By: Dr. Nunn on 08-15-2022 RBC (Bld) [#/Vol] 5.41 10*6/uL 4.6-6.2 [facility] Blood hemoglobin measurement (mass/volume)Ordered By: Dr. Nunn on 08-15-2022 Hemoglobin (Bld) [Mass/Vol] 16.1 g/dL 13.0-16.5 [facility] Blood lymphocytes/100 leukoc ytesOrdered By: Dr. Nunn on 08-15-2022 Lymphocytes/100 WBC (Bld) 37.3 % 19-41 [facility] Blood monocytes/100 leukocyt esOrdered By: Dr. Nunn on 08-15-2022 Monocytes/100 WBC (Bld) 6.0 % 0-10 [facility] Blood platelet mean volumeOr dered By: Dr. Nunn on 08-15-2022 Platelet mean volume (Bld) [Entitic vol] 8.6 fL 6.2-12.0 [facility] COVID-19 virus antigen assay Ordered By: Dr. Nunn on 08-15-2022 SARS-CoV-2 (COVID-19) Ag IA.rapid Ql (Resp) [facility] Determination of erythrocyte mean corpuscular volume (MCV)Ordered By: Dr. Nunn on 08-15-2022 MCV (RBC) [Entitic vol] 86.5 fL 80-94 [facility] Hematocrit Auto (Bld) [Volum e fraction]Ordered By: Dr. Nunn on 08-15-2022 Hematocrit (Bld) [Volume fraction] 46.8 % 40-54 [facility] Laboratory - Chemistry and C hemistry - challengeOrdered By: Dr. Nunn on 08-15-2022 CO2 [Moles/Vol] 24.0 mmol/L 21.0-32.0 [facility] Urea nitrogen/Creatinine [Mass ratio] 11.2 mg/mg 10-20 [facility] Laboratory - Drug toxicology Ordered By: Dr. Nunn on 08-15-2022 Amphetamines Ql (U) Negative <1000 ng/mL [facility] Benzodiazepines Ql (U) Negative < 200 ng/mL [facility] Cannabinoids Screen Ql (U) Positive < 50 ng/mL [facility] Cocaine Ql (U) Negative < 300 ng/mL [facility] Opiates Ql (U) Negative < 300 ng/mL [facility] Laboratory - Hematology and Cell countsOrdered By: Dr. Nunn on 08-15-2022 Erythrocyte distribution width (RBC) [Entitic vol] 43.4 fL 35.1-43.9 [facility] Erythrocyte distribution width (RBC) [Ratio] 13.7 % 11.6-14.6 [facility] Immature granulocytes/100 WBC (Bld) 0.400 % 0.0-0.9 [facility] Comment on above: IG% - Immature Granu locytes (promyelocytes, myelocytes and metamyelocytes) > 1% indicates that a LEFT SHIFT is Present. MCH (RBC) [Entitic mass] 29.8 pg 27.0-32.0 [facility] Nucleated RBC/100 WBC (Bld) [Ratio] 0 % 0-5 [facility] MCHC Auto (RBC) [Mass/Vol]Or dered By: Dr. Nunn on 08-15-2022 MCHC (RBC) [Mass/Vol] 34.4 g/dL 32-36 [facility] No Panel InformationOrdered By: Dr. Nunn on 08-15-2022 Estimated Creatinine Clearance Calc 82.84 ml/min [facility] Estimated GFR (MDRD) Amer 77 mL/min >60 [facility] Comment on above: GFR Calc Estimated GFR (MDRD) Non-Af Amer 64 mL/min >60 [facility] Comment on above: Non- GFR Calc Ethyl Alcohol Level < 3.0 mg/dL [facility] Comment on above: The serum:whole bloo d ethanol ratio is approximately 1.14and varies slightly with hematocrit. Medical Alcohol reference interval and critical value innon-tolerant individuals; 50 - 100 Impairment 100 Intoxication 100 - 250 Severe Poisoning 250 - 400 Deep/possible fatal coma MDMA (Ecstasy) Screen Negative < 500 ng/mL [facility] Thyroid Stimulating Hormone (TSH) 2.29 uIU/mL 0.358-3.74 [facility] Urine Barbiturates Screen Negative < 200 ng/mL [facility] Urine Drug Screen Comment [facility] Comment on above: CONFIRMATORY TESTING FOR ALL POSITIVE URINE DRUG SCREENRESULTS WILL ONLY BE SENT OUT UPON PHYSICIAN ORDER. [facility] Urine Drug Screen methods provide only preliminaryanalytical test results. A more specific alternate chemicalmethod must be used in order to obtain a confirmedanalytical result. Gas chromatography/mass spectrometery(GC/MS) is the preferred confirmatory method. Clinicalconsideration and professional judgement should be appliedto any drug of abuse test result, particularly whenpreliminary positive results are used. URINE TCA TESTING MUST BE ORDERED SEPARATELY. USE TESTMNEMONIC: [facility] Urine Methadone Screen Negative < 300 ng/mL [facility] Platelets bldOrdered By: Dr. uNnn on 08-15-2022 Platelets (Bld) [#/Vol] 293 10*3/uL 150-450 [facility] Serum or plasma calcium natty urement (mass/volume)Ordered By: Dr. Nunn on 08-15-2022 Calcium [Mass/Vol] 9.4 mg/dL 8.5-10.1 [facility] Serum or plasma creatinine m easurement (mass/volume)Ordered By: Dr. Nunn on 08-15-2022 Creatinine [Mass/Vol] 1.34 mg/dL 0.70-1.30 [facility] Comment on above: The validity of the calculated GFR & GFRAA in patients over 70 years has not been determined. Clinical correlation is essential. Serum or plasma urea nitroge n measurement (mass/volume)Ordered By: Dr. Nunn on 08-15-2022 Urea nitrogen [Mass/Vol] 15 mg/dL 7-18 [facility] Thin prep Papanicolaou smear with manual screeningOrdered By: Dr. Nunn on 08-15-2022 Thin prep Papanicolaou smear with manual screening 8 5-15 [facility] Urine phencyclidine (PCP) de tectionOrdered By: Dr. Nunn on 08-15-2022 Phencyclidine Ql (U) Negative < 25 ng/mL [facility] Absolute lymphocyte counton 11-05-2021 Lymphocytes Auto (Unsp spec) [#/Vol] 2.08 10*3/uL 0.83-4.51 [facility] Work Phone: Acetaminophen level (mass/vo lume)on 11-05-2021 Acetaminophen (Unsp spec) [Mass/Vol] < 2.0 ug/mL 10.0-30.0 [facility] Work Phone: Basophil percentageon 2021 Basophils/100 WBC (Bld) 0.5 % 0-1 [facility] Work Phone: Bilirubin [Mass/Vol] 0.50 mg/dL 0.20-1.00 [facility] Work Phone: Comment on above: For patients on eltr ombopag therapy, use of [place] TBIL is not recommended. Chloride [Moles/Vol] 110 mmol/L 98-107 [facility] Work Phone: Eosinophils/100 WBC (Bld) 3.2 % 0-5 [facility] Work Phone: Glucose [Mass/Vol] 155 mg/dL 74-106 [facility] Work Phone: Comment on above: Fasting Glucose resu lt greater than or equal to 126 mg/dL suggests DIABETES MELLITUS per A.D.A. criteria. Neutrophils (Bld) [#/Vol] 3.6 10*3/uL 2.0-7.7 [facility] Work Phone: Neutrophils/100 WBC (Bld) 57.1 % 47-70 [facility] Work Phone: Potassium [Moles/Vol] 3.3 mmol/L 3.5-5.1 [facility] Work Phone: Protein [Mass/Vol] 6.8 g/dL 6.4-8.2 [facility] Work Phone: Sodium [Moles/Vol] 140 mmol/L 136-145 [facility] Work Phone: WBC (Bld) [#/Vol] 6.3 10*3/uL 4.4-11.0 [facility] Work Phone: Blood erythrocytes count (nu mber/volume)on 11-05-2021 RBC (Bld) [#/Vol] 4.91 10*6/uL 4.6-6.2 [facility] Work Phone: Blood hemoglobin measurement (mass/volume)on 11-05-2021 Hemoglobin (Bld) [Mass/Vol] 15.4 g/dL 13.0-16.5 [facility] Work Phone: Blood lymphocytes/100 leukoc yteson 11-05-2021 Lymphocytes/100 WBC (Bld) 33.0 % 19-41 [facility] Work Phone: [phone] Blood monocytes/100 leukocyt eson 11-05-2021 Monocytes/100 WBC (Bld) 5.9 % 0-10 [facility] Work Phone: [phone] Blood platelet mean volumeon 11-05-2021 Platelet mean volume (Bld) [Entitic vol] 8.6 fL 6.2-12.0 [facility] Work Phone: Determination of erythrocyte mean corpuscular volume (MCV)on 11-05-2021 MCV (RBC) [Entitic vol] 87.8 fL 80-94 [facility] Work Phone: [phone] Hematocrit Auto (Bld) [Volum e fraction]on 11-05-2021 Hematocrit (Bld) [Volume fraction] 43.1 % 40-54 [facility] Work Phone: INR in Blood by Coagulation assayon 11-05-2021 INR Coag (Bld) [Relative time] 1.1 {INR} [facility] Work Phone: Laboratory - Chemistry and C hemistry - challengeon 11-05-2021 ALP [Catalytic activity/Vol] 60 U/L 45-117 [facility] Work Phone: ALT [Catalytic activity/Vol] 14 U/L 16-61 [facility] Work Phone: CO2 [Moles/Vol] 24.0 mmol/L 21.0-32.0 [facility] Work Phone: Globulin (S) [Mass/Vol] 3.0 g/dL 2.2-4.2 [facility] Work Phone: Magnesium [Mass/Vol] 2.2 mg/dL 1.6-2.6 [facility]: Urea nitrogen/Creatinine [Mass ratio] 8.5 mg/mg 10-20 [facility] Work Phone: Laboratory - Coagulationon 0 11-05-2021 PT Coag (PPP) [Time] 13.8 s 11.7-14.9 [facility] Work Phone: Laboratory - Drug toxicology on 11-05-2021 Amphetamines Ql (U) Negative <1000 ng/mL [facility] Work Phone: Benzodiazepines Ql (U) Negative < 200 ng/mL [facility] Work Phone: Cannabinoids Screen Ql (U) Positive < 50 ng/mL [facility] Work Phone: Cocaine Ql (U) Negative < 300 ng/mL [facility] Work Phone: Opiates Ql (U) Negative < 300 ng/mL [facility] Work Phone: Laboratory - Hematology and Cell countson 11-05-2021 Erythrocyte distribution width (RBC) [Entitic vol] 43.9 fL 35.1-43.9 [facility] Work Phone: Erythrocyte distribution width (RBC) [Ratio] 13.7 % 11.6-14.6 [facility] Work Phone: Immature granulocytes/100 WBC (Bld) 0.300 % 0.0-0.9 [facility] Work Phone: Comment on above: IG% - Immature Granu locytes (promyelocytes, myelocytes and metamyelocytes) > 1% indicates that a LEFT SHIFT is Present. MCH (RBC) [Entitic mass] 31.4 pg 27.0-32.0 [facility] Work Phone: Nucleated RBC/100 WBC (Bld) [Ratio] 0 % 0-5 [facility] Work Phone: MCHC Auto (RBC) [Mass/Vol]on 11-05-2021 MCHC (RBC) [Mass/Vol] 35.7 g/dL 32-36 [facility] Work Phone: No Panel Informationon 11-05 MDMA (Ecstasy) Screen Negative < 500 ng/mL [facility] Work Phone: Urine Barbiturates Screen Negative < 200 ng/mL [facility] Work Phone: Urine Drug Screen Comment [facility] Work Phone: Comment on above: CONFIRMATORY TESTING FOR ALL POSITIVE URINE DRUG SCREENRESULTS WILL ONLY BE SENT OUT UPON PHYSICIAN ORDER. [facility]IST[facility] Urine Drug Screen methods provide only preliminaryanalytical test results. A more specific alternate chemicalmethod must be used in order to obtain a confirmedanalytical result. Gas chromatography/mass spectrometery(GC/MS) is the preferred confirmatory method. Clinicalconsideration and professional judgement should be appliedto any drug of abuse test result, particularly whenpreliminary positive results are used. URINE TCA TESTING MUST BE ORDERED SEPARATELY. USE TESTMNEMONIC: [facility] Urine Methadone Screen Negative < 300 ng/mL [facility] Work Phone: Estimated Creatinine Clearance Calc 86.89 ml/min [facility] Work Phone: Estimated GFR (MDRD) Amer 81 mL/min >60 [facility] Work Phone: Comment on above: GFR Calc Estimated GFR (MDRD) Non-Af Amer 67 mL/min >60 [facility] Work Phone: Comment on above: Non- GFR Calc Ethyl Alcohol Level < 3.0 mg/dL [facility] Work Phone: Comment on above: The serum:whole bloo d ethanol ratio is approximately 1.14and varies slightly with hematocrit. Medical Alcohol reference interval and critical value innon-tolerant individuals; 50 - 100 Impairment 100 Intoxication 100 - 250 Severe Poisoning 250 - 400 Deep/possible fatal coma Platelets bldon 11-05-2021 Platelets (Bld) [#/Vol] 185 10*3/uL 150-450 [facility] Work Phone: Serum or plasma albumin natty urement (mass/volume)on 11-05-2021 Albumin [Mass/Vol] 3.8 g/dL 3.2-5.0 [facility] Work Phone: Serum or plasma albumin/glob ulin mass ratioon 11-05-2021 Albumin/Globulin [Mass ratio] 1.3 {ratio} 0.9-2.4 [facility] Work Phone: Serum or plasma calcium natty urement (mass/volume)on 11-05-2021 Calcium [Mass/Vol] 8.9 mg/dL 8.5-10.1 [facility] Work Phone: Serum or plasma creatinine m easurement (mass/volume)on 11-05-2021 Creatinine [Mass/Vol] 1.29 mg/dL 0.70-1.30 [facility] Work Phone: Comment on above: The validity of the calculated GFR & GFRAA in patients over 70 years has not been determined. Clinical correlation is essential. Serum or plasma salicylates measurement (mass/volume)on 11-05-2021 Salicylates [Mass/Vol] 3.3 mg/dL 2.8-20.0 [facility] Work Phone: Serum or plasma urea nitroge n measurement (mass/volume)on 11-05-2021 Urea nitrogen [Mass/Vol] 11 mg/dL 7-18 [facility] Work Phone: Thin prep Papanicolaou smear with manual screeningon 11-05-2021 Thin prep Papanicolaou smear with manual screening 14 U/L 15-37 [facility] Work Phone: Thin prep Papanicolaou smear with manual screening 6 5-15 [facility] Work Phone: Urine phencyclidine (PCP) de tectionon 11-05-2021 Phencyclidine Ql (U) Negative < 25 ng/mL [facility] Work Phone: DPL VENOUS LEG LTon 07-06-19 22 DPL VENOUS LEG LT *FINAL Date of Service: 07/05/2021 15:55 Adm #: [id number] Reading Dr:GHISLAINE Deluca Dr: GHISLAINE ALLEN PROCEDURE: DPL VENOUS LEG LT - WUS 2594 REASON FOR EXAM: Left leg pain RESULT: DPL VENOUS LEG LT: 07/05/2021 3:55 PM. CLINICAL INDICATION: Abrasion, erythema, pain, and swelling . COMPARISON: None.. TECHNIQUE: 2D grayscale and color-flow duplex images were obtained along with Doppler spectral waveform analysis of the deep venous system of the left lower extremity from the groin to the knee. Attempts were made to image the calf veins. Venous compression and augmentation were performed. Contralateral common femoral vein also interrogated. Examination is performed portably. FINDINGS: Left Lower Extremity: There is normal compressibility and flow within the visualized vessels of the deep venous system of this lower extremity. Contralateral common femoral vein was patent. IMPRESSION: No sign of deep venous thrombus in the left lower extremity.. [id number] This report has been produced using speech recognition. Original Interpreting Physician: GHISLAINE ALLEN M.D. Original Transcribed by/Date: PSCB Jul 05 2021 4:00P Original Electronically Signed by/Date: GHISLAINE ALLEN M.D. Jul 05 2021 4:00P Addendum Interpreting Physician: Addendum Transcribed by/Date: NO ADDENDUM Addendum Electronically Signed by/Date: [facility] No Panel Informationon 07-05 Duplex Venous Lef t Leg (Reference Range: not available) *FINAL Date of Service: 07/05/2021 15:55 Adm #: [id number] Reading Dr:GHISLAINE Deluca Dr: GHISLAINE ALLEN PROCEDURE: DPL VENOUS LEG LT - WUS 2594 REASON FOR EXAM: Left leg pain RESULT: DPL VENOUS LEG LT: 07/05/2021 3:55 PM. CLINICAL INDICATION: Abrasion, erythema, pain, and swelling . COMPARISON: None.. TECHNIQUE: 2D grayscale and color-flow duplex images were obtained along with Doppler spectral waveform analysis of the deep venous system of the left lower extremity from the groin to the knee. Attempts were made to image the calf veins. Venous compression and augmentation were performed. Contralateral common femoral vein also interrogated. Examination is performed portably. FINDINGS: Left Lower Extremity: There is normal compressibility and flow within the visualized vessels of the deep venous system of this lower extremity. Contralateral common femoral vein was patent. IMPRESSION: No sign of deep venous thrombus in the left lower extremity.. [id number] This report has been produced using speech recognition. Original Interpreting Physician: GHISLAINE ALLEN M.D. Original Transcribed by/Date: [facility] Jul 05 2021 4:00P Original Electronically Signed by/Date: GHISLAINE ALLEN M.D. Jul 05 2021 4:00P Addendum Interpreting Physician: Addendum Transcribed by/Date: NO ADDENDUM Addendum Electronically Signed by/Date: [employer] XR Tibia Fibula Left 2 Views (Reference Range: not available) *FINAL Date of Service: 07/05/2021 14:50 Adm #: [id number] Reading Dr:GHISLAINE ALLEN Signoff Dr: GHISLAINE ALLEN PROCEDURE: TIB-FIB LT 2 VIEW - WXR 0173 REASON FOR EXAM: Left leg pain RESULT: TIB-FIB LT 2 VIEW: 07/05/2021 2:50 PM. CLINICAL INDICATION: Abrasion and pain . COMPARISON: None.. TECHNIQUE: Two views of the Left tibia/fibula were performed. FINDINGS: There is swelling along the medial aspect of the distal portion of the left lower leg. No bony abnormality is seen. IMPRESSION: No acute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 times throughout shift after 0130. Pt appeared sleeping in bed with eyes closed, respiration are even and unlabored 4-6 hours. [facility] SOCIAL WORKon 07-02-2021 SOCIAL WORK HNO ID: [id number] Author: DELANO Nina Service: Psychiatry Author Type: Carpenter Foreman Type: Social Work Filed: 07/02/2021 12:01 PM Note Text: Attestation signed by DELANO Fierro at 07/02/2021 12:03 PM Supervising Carpenter Foreman Attestation I have reviewed the above documentation. I agree with the findings and plan as documented. SIGNATURE: DELANO Fierro PATIENT NAME: Elkin Vaughn DATE: July 02, 2021 TIME: 12:03 PM BEHAVIORAL HEALTH SOCIAL WORK PROGRESS NOTE SERVICE DATE: 07/02/2021 SERVICE TIME: 10:08 AM This internal communications writer met with the patient during morning rounds. Patient read his list of 10 goals he wants to accomplish when outside the hospital. Patient is denying SI/HI and A/VH. Patient did not appear to ramble during today's meeting. [facility]. Patient is interested in group therapy ([facility]ARIS program) at [facility]. [facility] to schedule group therapy. Call went to . Left asking for a callback. Called patient's fianceJesica, for follow up. Informed her that discharge is set for tomorrow. Jesica agreeable. Jesica agreeable to meeting the patient mcfp at [facility]. Discharge tomorrow. Follow up psychiatry scheduled at [facility]. Follow up counseling scheduled at [facility]. Cab to be set up. Patient's fiancee to pick patient up at [facility] due to patient living in [place]. SW to follow up with [facility] and schedule group therapy. SIGNATURE: DELANO Nina PATIENT NAME: Elkin Vaughn DATE: July 02, 2021 TIME: 10:08 AM [facility] ALLIED HEALTHon 07-01-2021 ALLIED HEALTH HNO ID: [id number] Author: RT Teresa(R) Service: ? Author Type: Technologist Type: Allied Health Filed: 07/01/2021 9:52 AM Note Text: Radiology Service Progress Note PATIENT NAME: Elkin Vaughn DATE OF SERVICE: July 01, 2021 TIME: 9:52 AM PATIENT IDENTITY VERIFICATION COMPLETED USING TWO (2) IDENTIFIERS: Name and Date of confirmed by patient verbally and Name and Date of confirmed by identification band. FALL SCREENING: Has the patient had 2 falls in the last year or 1 fall with injury or currently using an Ambulatory Assistive Device (Walker, Cane, Wheelchair, Crutches, etc.)? Inpatient: Screened on floor PATIENT GENDER DATA: Male PATIENT RELEVANT IMPLANT DATA REVIEWED: Not Applicable RADIOLOGY DEPARTMENT: Ultrasound PERIPHERAL IV DATA: Inpatient: see LDA documentation US LLE completed. SIGNED BY: RT Teresa(Sharmila) July 01, 2021 9:52 AM [facility] NURSING PROGon 07-01-2021 NURSING PROG HNO ID: [id number] Author: Gurdeep Taylor RN Service: Nursing Author Type: Registered Nurse Type: Nursing Progress Note Filed: 07/01/2021 6:59 PM Note Text: Nursing Progress Note Patient Name: Elkin Vaughn Patient Location: [id number]/[facility]- Daily Note: Patient has been intermittently on the unit. Denies having any suicidal or homicidal thoughts. Disheveled in his personal appearance but hygiene is adequate. He does enjoy groups and has attend with active participation. Compliant with all medications. Still encouraging patient to give a Urine Sample for a culture. He has not complain of any pain to internal communications writer today. After meals and groups he returns to his room and slept.. However, has made a couple of phone calls. Will continue to encourage patient to verbalize feelings and to use appropriate coping skills. 1845-Patient appears upset and crying. He requested something for anxiety. Given prn of Ativan 2 mg po. Broset score - 0. Minimal risk for violence. This note was completed by: Gurdeep Taylor [facility] SOCIAL WORKon 07-01-2021 SOCIAL WORK HNO ID: [id number] Author: DELANO Nina Service: Psychiatry Author Type: Carpenter Foreman Type: Social Work Filed: 07/01/2021 3:34 PM Note Text: Attestation signed by DELANO Fierro at 07/01/2021 3:40 PM Supervising Carpenter Foreman Attestation I have reviewed the above documentation. I agree with the findings and plan as documented. SIGNATURE: DELANO Fierro PATIENT NAME: Elkin Vaughn DATE: July 01, 2021 TIME: 3:40 PM BEHAVIORAL HEALTH SOCIAL WORK PROGRESS NOTE SERVICE DATE: 07/01/2021 SERVICE TIME: 8:38 AM This internal communications writer met with the patient during morning rounds. Patient discussed with the Dr why he does not want injections. Patient further discussed medication adjustments with the Dr. Patient explained what happened last night which led to receiving extra medicine. No set date for discharge at this time but is likely to happen before the weekend. Patient has follow up psychiatry at the [facility] of [facility]. Patient has IOP and individual counseling at [facility]. This internal communications writer to [facility] and gather appointment times. [facility] ([phone]) and spoke to the intake department who said they cannot release information pertaining to the patient's upcoming appointments. This internal communications writer transferred to an Dalia Langley who is supposedly able to release this information. Call went to . Left asking for a callback. Dalia called this internal communications writer back and said she's the patient's case supervisor. Patient said she needs an YADI to provide information for patient's appointments. This internal communications writer completed YADI with the patient. While talking to the patient, the patient said he also has a psychologist at [facility]. This internal communications writer called the [facility]. The patient does have a psychologist, Dr. Mayte Thurston. Worker said she has to speak to Dr. Thurston before she can schedule an appointment. Followed up with Dalia who said the patient's next counseling appointment is 07/08/2021 at 8:30 AM with Amanda Cruz. Dalia told this internal communications writer the patient is kicked out of the IOP and that the patient was going to be told this yesterday. This internal communications writer is unable to speak to who runs IOP as she's not working today. Lap Grinder provided contact for IOP coffee shop manager, Josette ([phone]), and was told she can be reached tomorrow. SW to follow up with the [facility] for follow up psychology appointment. SW to inform patient about him being kicked out of IOP; explore alternative IOPs with patient. Patient requested to speak to this internal communications writer. Patient wanted an update regarding [facility]. Informed patient that [facility] does not believe he's appropriate for the [facility] IOP due to outburst during first group. Patient is agreeable to other IOP's. Called counseling center and scheduled follow up with his psychologist. Appointment is 07/15/2021 at 9AM. If patient does not attend this appointment, he will be closed from all services for 90 days. Psychiatry, psychology, and counseling follow up scheduled. SW to assist patient in scheduling IOP services. No set discharge at this time. SIGNATURE: DELANO Nina PATIENT NAME: Elkin Vaughn DATE: July 01, 2021 TIME: 8:38 AM [facility] US DVT LOWER LTon 07-01-2021 US DVT LOWER LT * * *Final Report* * * DATE OF EXAM: Jul 01 2021 9:50AM MMU 1006 - US DVT LOWER LT / PROCEDURE REASON: Leg swelling * * * * Physician Interpretation * * * * EXAMINATION: LEFT LOWER EXTREMITY DEEP VENOUS ULTRASOUND WITH DOPPLER IMAGING CLINICAL HISTORY: Leg swelling TECHNIQUE: Grayscale with compression maneuvers, color Doppler and spectral Doppler imaging of the left proximal deep veins was performed. Grayscale with compression maneuvers of the peroneal and posterior tibial veins was performed. The left great and small saphenous veins were evaluated at their insertion to the deep system. The contralateral common femoral vein was imaged for comparison. Images were obtained and stored in a permanent archive. MQ: [id number]_1 COMPARISON: None RESULT: LEFT LOWER EXTREMITY PROXIMAL DEEP VEINS Distal External Iliac, Common Femoral and proximal Profunda Veins: Compression: Normal Doppler: Normal, spontaneous respirophasic flow. Normal response to augmentation. Femoral vein: Compression: Normal Doppler: Normal, spontaneous flow. Normal response to augmentation. Popliteal vein: Compression: Normal Doppler: Normal, spontaneous flow. Normal response to augmentation. CALF DEEP VEINS Peroneal veins: Normal compression. Posterior tibial veins: Normal compression. Gastrocnemius and Soleal veins: Not imaged. SUPERFICIAL VEINS Great saphenous: Patent and compressible at insertion into common femoral vein; not otherwise assessed. Small Saphenous: Not identified. RIGHT LOWER EXTREMITY (FOR COMPARISON) Common Femoral Vein: Compression: Normal Doppler: Normal, spontaneous respirophasic flow. Normal response to augmentation. IMPRESSION: Negative study for proximal DVT in the left lower extremity. Negative study for calf DVT in the left lower extremity. Negative study for superficial thrombophlebitis in the imaged segments of the left lower extremity. 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: [id number] Transcribe Date/Time: Jul 01 2021 9:55A Dictated by : FRANCISCO KIMBLE MD This examination was interpreted and the report reviewed and electronically signed by: FRANCISCO KIMBLE MD on Jul 01 2021 9:56AM EST [id number] Normal [facility] Basic metabolic 2000 panelon 06-30-2021 Anion gap [Moles/Vol] 10 mmol/L Normal 9-18 [facility] Comment on above: Order Comment: Speci men Type: BLOOD SPECIMEN Ordering Facility: [facility] Address: [address] [place] [address] Performed By: #### 2 4321-2 #### [facility] CLIA [id number] [address] [place] [address] [place] Calcium [Mass/Vol] 8.6 mg/dL Normal 8.5-10.2 [facility] Comment on above: Order Comment: Speci men Type: BLOOD SPECIMEN Ordering Facility: [facility] Address: [address] [place] [address] Performed By: #### 2 4321-2 #### [facility] CLIA [id number] [address] [place] [address] [place] Chloride [Moles/Vol] 105 mmol/L Normal 97-105 [facility] Comment on above: Order Comment: Speci men Type: BLOOD SPECIMEN Ordering Facility: [facility] Address: [address] [place] [address] Performed By: #### 2 4321-2 #### [facility] CLIA [id number] [address] [place] [address] [place] CO2 [Moles/Vol] 24 mmol/L Normal 22-30 [facility] Comment on above: Order Comment: Speci men Type: BLOOD SPECIMEN Ordering Facility: [facility] Address: [address] [place] [address] Performed By: #### 2 4321-2 #### [facility] CLIA [id number] [address] [place] [address] [place] Creatinine [Mass/Vol] 1.13 mg/dL Normal 0.73-1.22 [facility] Comment on above: Order Comment: Deuce prince Type: BLOOD SPECIMEN Ordering Facility: [facility] Address: [address] [place] [address] Performed By: #### 2 4321-2 #### [facility] CLIA [id number] [address] [place] [address] [place] ESTIMATED GLOMERULAR FILTRATION RATE 86 mL/min/1.73m??? Normal >=60 [facility] Comment on above: Order Comment: Deuce prince Type: BLOOD SPECIMEN Ordering Facility: [facility] Address: [address] [place] [address] Result Comment: Shanika mated Glomerular Filtration Rate (eGFR) is calculated using the 2020 CKD-EPI creatinine equation. This equation utilizes serum creatinine, sex, and age as parameters. The creatinine assay has traceable calibration to isotope dilution-mass spectrometry. Refer to KDIGO guidelines for clinical interpretation. In patients with unstable renal function, e.g. those with acute kidney injury, the eGFR may not accurately reflect actual GFR. Performed By: #### 2 4321-2 #### [facility] CLIA [id number] [address] [place] [address] [place] Glucose [Mass/Vol] 125 mg/dL High 74-99 [facility] Comment on above: Order Comment: Deuce prince Type: BLOOD SPECIMEN Ordering Facility: [facility] Address: [address] [place] [address] Result Comment: The [place] Diabetes Association (ADA) provides guidance for cutoff values for fasting glucose and random glucose. The ADA defines fasting as no caloric intake for at least 8 hours. Fasting plasma glucose results between 100 to 125 mg/dL indicate increased risk for diabetes (prediabetes). Fasting plasma glucose results greater than or equal to 126 mg/dL meet the criteria for diagnosis of diabetes. In the absence of unequivocal hyperglycemia, results should be confirmed by repeat testing. In a patient with classic symptoms of hyperglycemia or hyperglycemic crisis, random plasma glucose results greater than or equal to 200 mg/dL meet the criteria for diagnosis of diabetes. Reference: Standards of Medical Care in Diabetes 2016, [place] [employer] Association. Diabetes Care. 2016.39(Suppl 1). Performed By: #### 2 4321-2 #### [facility] CLIA [id number] [address] [place] [address] [place] Potassium [Moles/Vol] 3.4 mmol/L Low 3.7-5.1 [facility] Comment on above: Order Comment: Speci men Type: BLOOD SPECIMEN Ordering Facility: [facility] Address: [address] [place] [address] Performed By: #### 2 4321-2 #### [facility] CLIA [id number] [address] [place] [address] [place] Sodium [Moles/Vol] 139 mmol/L Normal 136-144 [facility] Comment on above: Order Comment: Speci men Type: BLOOD SPECIMEN Ordering Facility: [facility] Address: [address] [place] [address] Performed By: #### 2 4321-2 #### [facility] [place] [id number] [address] [place] [address] [place] Urea nitrogen [Mass/Vol] 9 mg/dL Normal 9-24 [facility] Comment on above: Order Comment: Speci men Type: BLOOD SPECIMEN Ordering Facility: [facility] Address: [address] [place] [address] Performed By: #### 2 4321-2 #### [facility] CLIA [id number] [address] [place] [address] [place] CBC panel Auto (Bld)on 06-30 Erythrocyte distribution width (RBC) [Ratio] 13.2 % Normal 11.5-15.0 [facility] Comment on above: Order Comment: Speci men Type: BLOOD SPECIMEN Ordering Facility: [facility] Address: [address] [place] [address] Performed By: #### 5 8410-2 #### [facility] CLIA [id number] [address] [place] [address] [place] Hematocrit (Bld) [Volume fraction] 40.2 % Normal 39.0-51.0 [facility] Comment on above: Order Comment: Speci men Type: BLOOD SPECIMEN Ordering Facility: [facility] Address: [address] [place] [address] Performed By: #### 5 8410-2 #### [facility] CLIA [id number] [address] [place] [address] [place] Hemoglobin (Bld) [Mass/Vol] 14.0 g/dL Normal 13.0-17.0 [facility] Comment on above: Order Comment: Speci men Type: BLOOD SPECIMEN Ordering Facility: [facility] Address: [address] [place] [address] Performed By: #### 5 8410-2 #### [facility] CLIA [id number] [address] [place] [address] [place] MCH (RBC) [Entitic mass] 30.2 pg Normal 26.0-34.0 [facility] Comment on above: Order Comment: Speci men Type: BLOOD SPECIMEN Ordering Facility: [facility] Address: [address] [place] [address] Performed By: #### 5 8410-2 #### [facility] CLIA [id number] [address] [place] [address] [place] MCHC (RBC) [Mass/Vol] 34.8 g/dL Normal 30.5-36.0 [facility] Comment on above: Order Comment: Speci men Type: BLOOD SPECIMEN Ordering Facility: [facility] Address: [address] [place] [address] Performed By: #### 5 8410-2 #### [facility] CLIA [id number] [address] [place] [address] [facility] MCV (RBC) [Entitic vol] 86.8 fL Normal 80.0-100.0 [facility] Comment on above: Order Comment: Speci men Type: BLOOD SPECIMEN Ordering Facility: [facility] Address: [address] Performed By: #### 5 8410-2 #### [facility] CLIA [id number] [address] [place] [address] [place] Nucleated RBC (Bld) [#/Vol] 10*3/uL Normal <0.01 [facility] Comment on above: Order Comment: Speci men Type: BLOOD SPECIMEN Ordering Facility: [facility] Address: [address] [place] [address] Performed By: #### 5 8410-2 #### [facility] CLIA [id number] [address] [place] [address] [place] Platelet mean volume (Bld) [Entitic vol] 9.1 fL Normal 9.0-12.7 [facility] Comment on above: Order Comment: Speci men Type: BLOOD SPECIMEN Ordering Facility: [facility] Address: [address] [place] [address] Performed By: #### 5 8410-2 #### [facility] CLIA [id number] [address] [place] [address] [place] Platelets (Bld) [#/Vol] 271 10*3/uL Normal 150-400 [facility] Comment on above: Order Comment: Speci men Type: BLOOD SPECIMEN Ordering Facility: [facility] Address: [address] [place], [place] [id number] Performed By: #### 5 8410-2 #### [facility] CLIA [id number] [address] [place] [address] [place] RBC (Bld) [#/Vol] 4.63 10*6/uL Normal 4.20-6.00 [facility] Comment on above: Order Comment: Speci men Type: BLOOD SPECIMEN Ordering Facility: [facility] Address: [address] [place] [address] Performed By: #### 5 8410-2 #### [facility] CLIA [id number] [address] [place] [address] [place] WBC (Bld) [#/Vol] 7.34 10*3/uL Normal 3.70-11.00 [facility] Comment on above: Order Comment: Speci men Type: BLOOD SPECIMEN Ordering Facility: [facility] Address: [address] [place] [address] Performed By: #### 5 8410-2 #### [facility] CLIA [id number] [address] [place], [place] [id number] [facility] NURSING PROGon 06-30-2021 NURSING PROG HNO ID: [id number] Author: Seda Lucero RN Service: Nursing Author Type: Registered Nurse Type: Nursing Progress Note Filed: 07/01/2021 8:47 AM Note Text: Nursing Progress Note Patient Name: Elkin Vaughn Patient Location: [id number]/[place] [address] Daily Note: 1929 Report received and care assumed. Pt walking in DA at shift change. Safety checks maintained per protocol. 2039 Pt appears disheveled in street clothes. He is calm and in control. Speech is slowed and raspy. He is visible in DA and social with select peers. Ate snack, made phone calls, makes needs known. Denies SI, HI, AVH, and pain at this time. Compliant with HS medications. Pt declined Trazodone offer. No PRNs requested. Continuing to monitor. Broset is 0, risk of violence is low. 2114 Pt finished phone call with yuliana Samuels and became tearful. Pt was sad that she only wanted to be his friend and he said that made him anxious. Pt requested/received PRN Ativan 2 mg PO for anxiety at 2109. 2139 Pt requested/received the Trazodone for insomnia that he refused earlier. 99 Pt observed sleeping in bed, no signs of distress. Continuing to monitor. 0225 Pt woke up and c/o pain and difficulty sleeping d/t the pain. Pt requesting anything that would help him. Pt was given PRN Tylenol 650 mg and second dose of Trazodone 50 mg for pain and insomnia. 0310 Pt still unable to sleep, is irritable, and starting to escalate. He complained of hallucinations and nightmares. Broset score is now 2. Pt accepted Haldol 10 mg IM and Ativan 2 mg IM for agitation and anxiety at about 0300. PRNs effective and pt slept for a few more hours. 0700 No additional PRNs given. Pt slept about 7.5 hours. Will give report to oncoming staff. This note was completed by: Seda Lucero [facility] NURSING PROG HNO ID: [id number] Author: Gurdeep Taylor RN Service: Nursing Author Type: Registered Nurse Type: Nursing Progress Note Filed: 06/30/2021 6:34 PM Note Text: Nursing Progress Note Patient Name: Elkin Vaughn Patient Location: [id number]/[facility]- 46 Daily Note: Patient has been up intermittently on the unit. His voice is raspy and difficult to understand at times. However, he has been up talking on the phone. Has been alert and oriented X 3 today. Denies having any suicidal or homicidal thoughts. Disheveled in his personal clothing. Verbalized that he does want to maintain sobriety. Was able to attend one group and engaged in the game. Also, able to share a song with the group. Has been compliant with medications today Does contract for safety on the unit. Will continue to encourage patient to verbalize feelings and to use appropriate coping skills. This note was completed by: Gurdeep Taylor [facility] SOCIAL WORKon 06-30-2021 SOCIAL WORK HNO ID: [id number] Author: DELANO Nina Service: Psychiatry Author Type: Carpenter Foreman Type: Social Work Filed: 06/30/2021 1:00 PM Note Text: Attestation signed by DELANO Fierro at 06/30/2021 2:37 PM Supervising Carpenter Foreman Attestation I have reviewed the above documentation. I agree with the findings and plan as documented. SIGNATURE: DELANO Fierro PATIENT NAME: Elkin Vaughn DATE: June 30, 2021 TIME: 2:37 PM BEHAVIORAL HEALTH SOCIAL WORK PROGRESS NOTE SERVICE DATE: 06/30/2021 SERVICE TIME: 8:51 AM This internal communications writer met with the patient during morning rounds. Patient began meeting listing his goals: getting job back, getting connected to IOP, reconnected to counseling, achieve sobriety, returning to residence. 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. Patient said he's interested in residential services but does not want to pursue at this time due to goals he wants to achieve. Patient did sign the voluntary and did sign an YADI for his mother, yuliana, and [facility] (counseling/IOP agency). Lap Grinder called [facility] ([phone]) to reschedule appointments. This internal communications writer was told that the patient has IOP scheduled for IOP every Mon, Tu, and Thurs. Patient also receives individual counseling at [facility]. Worker this internal communications writer spoke to is unable to provide information regarding his IOP and individual counselor's name, date of next indiviudal counseling appointment, and times of IOP and individual counseling appointment. This internal communications writer was transferred to medical records. Call went to voicemail. No extension provided. This internal communications writer left a voicemail asking for a callback. This internal communications writer called the [facility] ([facility]) at [phone] for follow up. Spoke to Samantha who said the patient's next scheduled psychiatry appointment is 07/21/2021 at 9:30 AM with Arnav Tinoco NP. Appointment can occur either in person or through telehealth. Patient will have to call and request either or. Lap Grinder called patient's mother, Yasmin ([phone]), for follow up. Yasmin explained what led to the patient's admission including the patient's paranoia towards his friend and erratic/bizarre behavior. Yasmin said the patient has a mental health histroy starting when the patient was [age]. Per Yasmin, prior dx of Bipolar and Dysthymia. Informed Yasmin that the plan if for patient to be reconnected to providers as well as psychiatric stabilization. Yasmin said she spoke to the patient this morning who said the patient was talking fast, rambling, and was repetitious. Yasmin said the patient's fiance has told her that the patient is allowed to come back home as a friend rather than boyfriend. Yasmin said both the patient and his fiance's names are on the lease to the apartment. Informed Yasmin that an YADI has been signed for her. This internal communications writer tried calling the patient's fiance, Jesica ([phone]), and the call went to an automated message saying the phone number has been disconnected. Lap Grinder spoke to patient again in the day area. Patient was ending phone call with his fiance as this internal communications writer approached. Patient said his fiance told him he can come back home. Patient was tearful but he said he's happy that he's able to work things out with his fiance. Spoke to patient about his OP services. Patient denies missing any appointments. Patient said he's [facility] at the [facility] and [facility]. Patient said he's receiving dual diagnosis treatment at both agencies. Patient provided this internal communications writer an additional phone number for his fiance, . This internal communications writer called Abril for follow up. Abril had little to share and did not provide specific details. Jesica said she wants the patient to improve with his mental health but was unable to say what specifically she'd like to see improve. Jesica said the patient does abuse cold pills and marijuanna but isn't aware of other drugs that patient may be using. Jesica said the patient is allowed to return home. Jesica said the both her and the patient agreed for her to handle his money in order to keep the patient from buying cold medicine or drugs. SW to follow up with Dilip. SIGNATURE: DELANO Nina PATIENT NAME: Elkin Vaughn DATE: June 30, 2021 TIME: 8:51 AM [facility] [facility]ALTH HNO ID: [id number] Author: WALLY Baker Service: ? Author Type: Therapist Type: Allied Health Filed: 06/29/2021 8:33 AM Note Text: PERSONAL DE-ESCALATION PLAN BEHAVIORAL HEALTH SERVICE DATE: 06/29/2021 SERVICE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 a 36-year-old male with past [...] rash. He denies SI, HI and hallucinations. PAST MEDICAL HISTORY Diagnosis Date - Asthma EXERCISE INDUCED - GERD (gastroesophageal reflux disease) - Nightmares - FRANCISCO (obstructive sleep apnea) - Psychiatric disorder BIPOLAR; SCHIZOAFFECTIVE D/O PAST SURGICAL HISTORY Procedure Laterality Date - PAST SURGICAL HISTORY OF wisdom teeth FAMILY HISTORY Problem Relation Age of Onset - No Known Problems Mother - Cancer Father skin Social History Tobacco Use - Smoking status: Current Every Day Smoker Packs/day: 0.20 - Smokeless tobacco: Never Used Vaping Use - Vaping Use: current everyday user Substance and Sexual Activity - Alcohol use: No - Drug use: Yes Types: Marijuana Comment: daily - Sexual activity: Not on file ALLERGIES No Known Allergies Review of Systems Constitutional: Negative for chills, fatigue and fever. HENT: Negative for rhinorrhea, sinus pain and sore throat. Eyes: Negative for photophobia and visual disturbance. Respiratory: Negative for cough, shortness of breath and wheezing. Cardiovascular: Negative for chest pain, palpitations and leg swelling. Gastrointestinal: Negative for abdominal pain, diarrhea, nausea and vomiting. Genitourinary: Negative for dysuria, frequency, hematuria and urgency. Musculoskeletal: Negative for back pain, neck pain and neck stiffness. Skin: Positive for rash (road rash) and wound. Negative for color change. Neurological: Positive for headaches. Negative for dizziness, weakness and numbness. Psychiatric/Behavioral: Negative for behavioral problems, confusion, self-injury and suicidal ideas. Physical Exam Vitals BP Pulse Temp Temp src Resp SpO2 Weight Height 06/28/21 0953 06/28/21 0953 06/28/21 0953 06/28/21 0953 06/28/21 0953 06/28/21 0953 06/28/21 0958 06/28/21 0958 155/87 (!) 112 36.6 ?C (97.9 ?F) Oral 24 97 % 97.1 kg (214 lb) 1.829 m (6') Physical Exam Vitals and nursing note reviewed. Constitutional: General: He is not in acute distress. Appearance: He is not ill-appearing, toxic-appearing or diaphoretic. HENT: Head: Normocephalic. Contusion and laceration present. No raccoon eyes or Park's sign. Right Ear: No hemotympanum. Left Ear: No hemotympanum. Nose: Right Nostril: No septal hematoma. Left Nostril: No septal hematoma. Mouth/Throat: Comments: No intraoral trauma Eyes: Extraocular Movements: Extraocular movements intact. Conjunctiva/sclera: Conjunctivae normal. Pupils: Pupils are equal, round, and reactive to light. Neck: Comments: No step off or deformity of cervical spine Cardiovascular: Rate and Rhythm: Regular rhythm. Tachycardia present. Pulses: Normal pulses. Radial pulses are 2+ on the right side and 2+ on the left side. Dorsalis pedis pulses are 2+ on the right side and 2+ on the left side. Posterior tibial pulses are 2+ on the right side and 2+ on the left side. Pulmonary: Effort: Pulmonary effort is normal. No respiratory distress. Breath sounds: Normal breath sounds and air entry. No decreased breath sounds. Chest: Chest wall: No tenderness or crepitus. Abdominal: General: Abdomen is flat. There is no distension. Palpations: Abdomen is soft. Tenderness: There is no abdominal tenderness. Musculoskeletal: General: No swelling, tenderness, deformity or signs of injury. Normal range of motion. Cervical back: Normal range of motion and neck supple. No spinous process tenderness or muscular tenderness. Comments: No midline CTL spine tenderness, step off or deformity Skin: General: Skin is warm and dry. Findings: Abrasion present. Neurological: General: No focal deficit present. Mental Status: He is alert and oriented to person, place, and time. GCS: GCS eye subscore is 4. GCS verbal subscore is 5. GCS motor subscore is 6. Sensory: Sensation is (more content not included)... Normal [facility] Ethanol SerPl-mCncon 022 Ethanol [Mass/Vol] mg/dL Normal <11 [facility] Comment on above: Order Comment: Speci men Type: BLOOD SPECIMEN Ordering Facility: [facility] Address: [address] [place] [address] Performed By: #### 5 643-2 #### [facility] CLIA [id number] [place] [address] [place] Ethanol [Mass/Vol] mg/dL Normal <11 [facility] Comment on above: Order Comment: Speci men Type: BLOOD SPECIMENOrdering Facility: [facility] Address: [address] [place] [address] Performed By: #### 5 643-2 ####[facility]ORATORYCLIA [id number] [place] [address] [place] Lipase SerPl-cCncon 06-29-19 22 Lipase [Catalytic activity/Vol] 25 U/L Normal 16-61 [facility] Comment on above: Order Comment: Speci men Type: BLOOD SPECIMENOrdering Facility: [facility] Address: [address] [place] [address] Performed By: #### 2 4323-8, 3040-3 ####[facility]ORATORYCLIA [id number] [address] PT panel Coag (PPP)on 2021 INR Coag (PPP) [Relative time] 1.2 {INR} Normal 0.9-1.3 [facility] Comment on above: Order Comment: Deuce prince Type: BLOOD SPECIMEN Ordering Facility: [facility] Address: [address] [place] [address] Result Comment: Ida min K Antagonist (VKA) Therapeutic Range: INR 2 to 3 (Target INR of 2.5) Note: For patients treated with VKA drugs, such as warfarin, the [employer] 2012 Guideline recommends a therapeutic INR range of 2 to 3 (target INR of 2.5). This recommendation includes high-risk patients with antiphospholipid syndrome with previous arterial or venous thromboembolism, current-generation mechanical or bioprosthetic aortic heart valve replacement. Note: Patients with mechanical aortic valve replacement and additional risk factors for thromboembolic events (atrial fibrillation, previous thromboembolism, LV dysfunction, hypercoagulable conditions) or an older generation mechanical AVR (i.e., ball in-Cage) or any mechanical MVR should have a INR therapeutic range of 2.5 to 3.5 (target INR of 3). Preeti GH, et al. Chest 2012, 141:7S-47S Gracie RA, et al. JAC 2017, 70: 252-289 Performed By: #### 1 4979-9, 76214-9 #### [facility] CLIA [id number] [place] [address] [place] [address] [facility] PT Coag (PPP) [Time] 12.4 s Normal 9.7-13.0 [facility] Comment on above: Order Comment: Deuce prince Type: BLOOD SPECIMEN Ordering Facility: [facility] Address: [address] [id number] Performed By: #### 1 4979-9, 83192-8 #### [facility] CLIA [id number] OF [facility] SARS-CoV-2 RNA Resp Ql ALEX+p robeon 06-28-2021 SARS-CoV-2 (COVID-19) RNA ALEX+probe Ql (Resp) COVID 19 RESULT: SARS-CoV-2 (Agent of COVID-19) Not Detected by RT-PCR or equivalent method. This test has been authorized by FDA under an Emergency Use Authorization (EUA). Normal [facility] Comment on above: Performed By: #### 9 4500-6 ####[facility] [id number] [address] OF [place] TOX SCREEN ROUT URon 022 Amphetamines Confirm (U) [Mass/Vol] Negative Normal Negative [facility] Comment on above: Order Comment: Speci men Type: URINE SPECIMEN Ordering Facility: [facility] Address: [address] [place] [address] Result Comment: Cuto ff threshold at 1000 ng/mL. Performed By: #### U TOX2 #### [facility] CLIA [id number] [address] [place] [address] OF [place] BARBITURATES, URINE Positive Abnormal Negative [facility] Comment on above: Order Comment: Speci men Type: URINE SPECIMEN Ordering Facility: [facility] Address: [address] [place] [address] Result Comment: Cuto ff threshold at 200 ng/mL. Performed By: #### U TOX2 #### [facility] CLIA [id number] [address] [place] [address] [place] BENZODIAZEPINES, UR Positive Abnormal Negative [facility] Comment on above: Order Comment: Speci men Type: URINE SPECIMEN Ordering Facility: [facility] Address: [address] [place] [address] Result Comment: Cuto ff threshold at 200 ng/mL. Performed By: #### U TOX2 #### [facility] CLIA [id number] [address] [place] [address] [place] CANNABINOIDS,URINE Positive Abnormal Negative [facility] Comment on above: Order Comment: Speci men Type: URINE SPECIMEN Ordering Facility: [facility] Address: [address] [place] [address] Result Comment: Cuto ff threshold at 50 ng/mL. Performed By: #### U TOX2 #### [facility] CLIA [id number] [address] [place] [address] STATES OF [place] Cocaine Ql (U) Negative Normal Negative [facility] Comment on above: Order Comment: Speci men Type: URINE SPECIMEN Ordering Facility: [facility] Address: [address] [place] [address] Result Comment: Cuto ff threshold at 300 ng/mL. Performed By: #### U TOX2 #### [facility] CLIA [id number] [address] [place] [address] [place] Ethanol (U) [Mass/Vol] <11 Normal <11 [facility] Comment on above: Order Comment: Speci men Type: URINE SPECIMEN Ordering Facility: [facility] Address: [address] [place] [address] Performed By: #### U TOX2 #### [facility] CLIA [id number] [address] [place] [address] OF [place] Opiates Screen Ql (U) Positive Abnormal Negative [facility] Comment on above: Order Comment: Speci men Type: URINE SPECIMEN Ordering Facility: [facility] Address: [address] [place] [address] Result Comment: Cuto ff threshold at 300 ng/mL. Performed By: #### U TOX2 #### [facility] CLIA [id number] [address] [place] [address] [place] oxyCODONE cutoff Screen (U) [Mass/Vol] Negative Normal Negative [facility] Comment on above: Order Comment: Speci men Type: URINE SPECIMEN Ordering Facility: [facility] Address: [address] [place] [address] Result Comment: Cuto ff threshold at 100 ng/mL. Performed By: #### U TOX2 #### [facility] CLIA [id number] [address] [place] [address] STATES OF [place] Phencyclidine Ql (U) Positive Abnormal Negative [facility] Comment on above: Order Comment: Speci men Type: URINE SPECIMEN Ordering Facility: [facility] Address: [address] [place] [address] Result Comment: Cuto ff threshold at 25 ng/mL. Performed By: #### U TOX2 #### [facility] CLIA [id number] TYPE AND SCREENon 06-28-2021 ABO A Normal [facility] Comment on above: Order Comment: Speci men Type: BLOOD SPECIMENOrdering Facility: [facility] Address: [address] [place] [address] Performed By: #### T SCR ####[facility] [id number] [address] HISTORICAL AB SCR STATUS Negative [facility] Comment on above: Order Comment: Speci men Type: BLOOD SPECIMENOrdering Facility: [facility] Address: [address] [place] [address] Performed By: #### T SCR ####[facility] [id number] [address] Rh Nom (Bld) Negative [facility] Comment on above: Order Comment: Speci men Type: BLOOD SPECIMENOrdering Facility: [facility] Address: [address] [place] [address] Performed By: #### T SCR ####[facility] [id number] [address] TYPE AND SCREEN EXPIRATION 07/01/2021 23:59 Normal [facility] Comment on above: Order Comment: Speci men Type: BLOOD SPECIMENOrdering Facility: [facility] Address: [address] [place] [address] Performed By: #### T SCR ####[facility] [id number] [address] Urinalysis complete panel (U )on 06-28-2021 Bacteria LM.HPF (Urine sed) [#/Area] Many Abnormal None Seen [facility] Comment on above: Order Comment: Speci men Type: URINE SPECIMEN Ordering Facility: [facility] Address: [address] [place] [address] Performed By: #### 2 4356-8 #### [facility] CLIA [id number] [address] [place] [address] [place] Bilirubin Ql (U) Negative Normal Negative [facility] Comment on above: Order Comment: Speci men Type: URINE SPECIMEN Ordering Facility: [facility] Address: [address] [place] [address] Performed By: #### 2 4356-8 #### [facility] CLIA [id number] [address] [place] [address] [place] Clarity (Unsp spec) Turbid Abnormal Clear [facility] Comment on above: Order Comment: Speci men Type: URINE SPECIMEN Ordering Facility: [facility] Address: [address] [place] [address] Performed By: #### 2 4356-8 #### [facility] CLIA [id number] [address] [place] [address] [place] Color (U) Yellow Normal Yellow [facility] Comment on above: Order Comment: Speci men Type: URINE SPECIMEN Ordering Facility: [facility] Address: [address] [place] [address] Performed By: #### 2 4356-8 #### [facility] CLIA [id number] [address] [place] [address] [place] Glucose Test strip (U) [Mass/Vol] Trace Abnormal Negative [facility] Comment on above: Order Comment: Speci men Type: URINE SPECIMEN Ordering Facility: [facility] Address: [address] [place] [address] Performed By: #### 2 4356-8 #### [facility] CLIA [id number] [address] [place] [address] [place] Granular casts (Urine sed) [#/Area] /[LPF] Abnormal 0 /LPF [facility] Comment on above: Order Comment: Speci men Type: URINE SPECIMEN Ordering Facility: [facility] Address: [address] [place] [address] Performed By: #### 2 4356-8 #### [facility] CLIA [id number] [address] [place] [address] [place] Hemoglobin Ql (U) Negative Normal Negative [facility] Comment on above: Order Comment: Speci men Type: URINE SPECIMEN Ordering Facility: [facility] Address: [address] [place] [address] Performed By: #### 2 4356-8 #### [facility] CLIA [id number] [address] [place] [address] [place] Ketones Ql (U) Trace Abnormal Negative [facility] Comment on above: Order Comment: Speci men Type: URINE SPECIMEN Ordering Facility: [facility] Address: [address] [place] [address] Performed By: #### 2 4356-8 #### [facility] CLIA [id number] [address] [place] [address] STATES OF [place] Leukocyte esterase Test strip Ql (U) Negative Normal Negative [facility] Comment on above: Order Comment: Speci men Type: URINE SPECIMEN Ordering Facility: [facility] Address: [address] [place] [address] Performed By: #### 2 4356-8 #### [facility] CLIA [id number] [address] [place] [address] [place] Nitrite Ql (U) Negative Normal Negative [facility] Comment on above: Order Comment: Speci men Type: URINE SPECIMEN Ordering Facility: [facility] Address: [address] [place] [address] Performed By: #### 2 4356-8 #### [facility] CLIA [id number] [address] [place] [address] [place] pH (U) 6.0 [pH] Normal 5.0-8.0 [facility] Comment on above: Order Comment: Speci men Type: URINE SPECIMEN Ordering Facility: [facility] Address: [address] [place] [address] Performed By: #### 2 4356-8 #### [facility] CLIA [id number] [address] [place] [address] [place] Protein (U) [Mass/Vol] 2+ Abnormal Negative [facility] Comment on above: Order Comment: Speci men Type: URINE SPECIMEN Ordering Facility: [facility] Address: [address] [place] [address] Performed By: #### 2 4356-8 #### [facility] CLIA [id number] [address] [place] [address] [place] RBC LM.HPF (Urine sed) [#/Area] 3-5 /HPF Abnormal 0-3 /HPF [facility] Comment on above: Order Comment: Speci men Type: URINE SPECIMEN Ordering Facility: [facility] Address: [address] [place] [address] Performed By: #### 2 4356-8 #### [facility] CLIA [id number] [address] [place] [address] [place] Specific gravity (U) [Rel density] 1.038 High 1.005-1.030 [facility] Comment on above: Order Comment: Speci men Type: URINE SPECIMEN Ordering Facility: [facility] Address: [address] [place] [address] Performed By: #### 2 4356-8 #### [facility] CLIA [id number] [address] [place] [address] [place] SPERM Present Abnormal None Seen [facility] Comment on above: Order Comment: Speci men Type: URINE SPECIMEN Ordering Facility: [facility] Address: [address] [place] [address] Performed By: #### 2 4356-8 #### [facility] CLIA [id number] [address] [place] [address] [place] Urobilinogen Ql (U) Negative Normal Negative [facility] Comment on above: Order Comment: Speci men Type: URINE SPECIMEN Ordering Facility: [facility] Address: [address] [place] [address] Performed By: #### 2 4356-8 #### [facility] CLIA [id number] [address] [place] [address] [place] WBC LM.HPF (Urine sed) [#/Area] 6-10 /HPF Abnormal 0-5 /HPF [facility] Comment on above: Order Comment: Speci men Type: URINE SPECIMEN Ordering Facility: [facility] Address: [facility] [place] [address] Performed By: #### 2 4356-8 #### [facility] CLIA [id number] [address] [place] [address] [place] XR CHEST 1V FRONTAL PORTon 0 06-28-2021 XR CHEST 1V FRONTAL PORT * * *Final Report* * * DATE OF EXAM: Jun 28 2021 10:58AM FVX [id number] - XR CHEST 1V FRONTAL PORT / PROCEDURE REASON: Chest trauma, blunt * * * * Physician Interpretation * * * * EXAMINATION: CHEST RADIOGRAPH (SINGLE VIEW AP OR PA) Clinical History: Chest trauma, blunt M: XC1_4 Comparison: RESULT: Lines, tubes, and devices: None. Lungs and pleura: No consolidation. Mild central bronchial wall thickening. No lung mass. No pleural effusion. Cardiomediastinal silhouette: Normal cardiomediastinal silhouette. Other: IMPRESSION: No acute radiographic abnormality. 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: JACK Transcribe Date/Time: Jun 28 2021 11:05A Dictated by : ABRIL TORRES MD This examination was interpreted and the report reviewed and electronically signed by: ABRIL TORRES MD on Jun 28 2021 11:05AM EST [id number] Normal [facility] XR PELVIS 1V APon 06-28-2021 XR PELVIS 1V AP * * *Final Report* * * DATE OF EXAM: Jun 28 2021 10:58AM FVX [id number] - XR PELVIS 1V AP / PROCEDURE REASON: Pelvic fx, known or suspected * * * * Physician Interpretation * * * * EXAMINATION: XR PELVIS 1V AP Clinical history: Pelvic fx, known or suspected RESULT: There is no fracture. Alignment is normal. IMPRESSION: No radiographic evidence of fracture 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: JACK Transcribe Date/Time: Jun 28 2021 11:05A Dictated by : ABRIL TORRES MD This examination was interpreted and the report reviewed and electronically signed by: ABRIL TORRES MD on Jun 28 2021 11:05AM EST [id number] Normal [facility] aPTT PPPon 06-28-2021 aPTT Coag (PPP) [Time] 27.6 s Normal 23.0-32.4 [facility] Comment on above: Order Comment: Speci men Type: BLOOD SPECIMEN Ordering Facility: [facility] Address: [address] [place], [place] [id number] Performed By: #### 1 4979-9, 70224-5 #### [facility] CLIA [id number] [address] [place] [address] [place] Acetaminophenon 06-20-2021 Acetaminophen [Mass/Vol] 11.1 ug/mL Normal 10.0-30.0 [facility] Comment on above: Performed By: #### C MP3, ETOH4, HEMDF, ACET4 #### [address] Comp Metabolic Panelon 06-20 ALP [Catalytic activity/Vol] 54 U/L Normal 38-126 [facility] Comment on above: Performed By: #### C MP3, ETOH4, HEMDF, ACET4 #### [address] ALT [Catalytic activity/Vol] 19 U/L Normal 0-49 [facility] Comment on above: Result Comment: The ALT test is performed by an updated assay method. Please note that the reference intervals have been changed and are now sex specific. Performed By: #### C MP3, ETOH4, HEMDF, ACET4 #### [address] Anion gap [Moles/Vol] 5 mmol/L Normal 3-13 [facility] Comment on above: Performed By: #### C MP3, ETOH4, HEMDF, ACET4 #### [address] AST [Catalytic activity/Vol] 41 U/L Normal 15-46 [facility] Comment on above: Performed By: #### C MP3, ETOH4, HEMDF, ACET4 #### [address] [address] [address] [place], [place] Bilirubin [Mass/Vol] 0.5 mg/dL Normal 0.2-1.3 [facility] Comment on above: Performed By: #### C MP3, ETOH4, HEMDF, ACET4 #### [address] [address] [place], [place] Calcium [Mass/Vol] 9.1 mg/dL Normal 8.4-10.4 [facility] Comment on above: Performed By: #### C MP3, ETOH4, HEMDF, ACET4 #### [address] [address] [place], [place] CO2 [Moles/Vol] 28 mmol/L Normal 22-30 [facility] Comment on above: Performed By: #### C MP3, ETOH4, HEMDF, ACET4 #### [address] [address] [place], [place] Creatinine [Mass/Vol] 1.48 mg/dL High 0.52-1.25 [facility] Comment on above: Performed By: #### C MP3, ETOH4, HEMDF, ACET4 #### [address] [address] [place], [place] GFR/1.73 sq M.predicted among blacks MDRD (S/P/Bld) [Vol rate/Area] 69.4 mL/min/{1.73_m2} Normal >60 [facility] Comment on above: Performed By: #### C MP3, ETOH4, HEMDF, ACET4 #### [address] [address] [place], [place] GFR/1.73 sq M.predicted among non-blacks MDRD (S/P/Bld) [Vol rate/Area] 59.9 mL/min/{1.73_m2} Abnormal >60 [facility] Comment on above: Result Comment: KDIG O guidelines provide the following GFR categories: Stage GFR(ml/min/1.73 m2) Terms G1 >=90 Normal or high G2 60-89 Mildly decreased* G3a 45-59 Mildly to moderately decreased G3b 30-44 Moderately to severely decreased G4 15-29 Severely decreased G5 <15 Kidney failure *Relative to young adult level. In the absence of evidence of kidney damage, neither GFR category G1 nor G2 fulfill the criteria for CKD. The CKD-EPI equation is validated in individuals 18 years of age and older. Currently the best equation for estimating glomerular filtration rate (GFR) from serum creatinine in children is the Bedside Zimmerman equation. It is less accurate in patients with extremes of muscle mass, restriction of dietary protein, ingestion of creatine, extra-renal metabolism of creatinine, or treatment with medications that affect renal tubular creatinine secretion. Performed By: #### C MP3, ETOH4, HEMDF, ACET4 #### [facility] [address] [place] [address] Glucose [Mass/Vol] 112 mg/dL High 70-100 [facility] Comment on above: Performed By: #### C MP3, ETOH4, HEMDF, ACET4 #### [address] [address] [place] [address] Protein [Mass/Vol] 7.2 g/dL Normal 6.3-8.2 [facility] Comment on above: Performed By: #### C MP3, ETOH4, HEMDF, ACET4 #### [facility] [address] [place] [address] Urea nitrogen [Mass/Vol] 17 mg/dL Normal 7-17 [facility] Comment on above: Performed By: #### C MP3, ETOH4, HEMDF, ACET4 #### [address] [address] Potassium [Moles/Vol] 3.9 mmol/L Normal 3.5-5.1 [facility] Comment on above: Performed By: #### C MP3, ETOH4, HEMDF, ACET4 #### [facility] [address] [place] [address] Albumin [Mass/Vol] 4.3 g/dL Normal 3.5-5.0 [facility] Comment on above: Performed By: #### C MP3, ETOH4, HEMDF, ACET4 #### [address] [address] [place], [place] Chloride [Moles/Vol] 107 mmol/L Normal 98-107 [facility] Comment on above: Performed By: #### C MP3, ETOH4, HEMDF, ACET4 #### [address] [address] [place], [place] Sodium [Moles/Vol] 140 mmol/L Normal 135-145 [facility] Comment on above: Performed By: #### C MP3, ETOH4, HEMDF, ACET4 #### [address] [address] [place], [place] Complete Urinalysison 2021 Appearance (U) Clear Normal Clear [facility] Comment on above: Result Comment: . Performed By: #### C UA2, DRGA4 #### [address] [address] [place], [place] Bacteria LM.HPF (Urine sed) [#/Area] Negative Normal Negative [facility] Comment on above: Result Comment: . Performed By: #### C UA2, DRGA4 #### [address] [address] [place], [place] Bilirubin,Urine Negative Normal Negative [facility] Comment on above: Result Comment: . Performed By: #### C UA2, DRGA4 #### [address] [address] [place], [place] Cast, Hyaline Negative Normal Negative [facility] Comment on above: Result Comment: . Performed By: #### C UA2, DRGA4 #### [address] [address] [place], [place] Color (U) Yellow Normal Lt. Yellow [facility] Comment on above: Result Comment: . Performed By: #### C UA2, DRGA4 #### [address] [address] [place], [place] Glucose Ql (U) Normal Normal Normal (<70) [facility] Comment on above: Result Comment: . Performed By: #### C UA2, DRGA4 #### [address] [address] [place], [place] Ketone,Urine Trace Abnormal Negative [facility] Comment on above: Result Comment: . Performed By: #### C UA2, DRGA4 #### [address] [address] [place], [place] Leukocytes,Urine Negative Normal Negative [facility] Comment on above: Result Comment: . Performed By: #### C UA2, DRGA4 #### [address] [address] [place], [place] Mucous Threads Few Normal Negative [facility] Comment on above: Result Comment: . Performed By: #### C UA2, DRGA4 #### [address] [address] [place], [place] Nitrites,Urine Negative Normal Negative [facility] Comment on above: Result Comment: . Performed By: #### C UA2, DRGA4 #### [address] [address] [place], [place] Occult Blood,Urine Negative Normal Negative [facility] Comment on above: Result Comment: . Performed By: #### C UA2, DRGA4 #### [address] [address] [place], [place] pH,Urine 6.5 Normal 5.0-8.0 [facility] Comment on above: Result Comment: . Performed By: #### C UA2, DRGA4 #### [address] [address] [place], [place] Protein (U) [Mass/Vol] 30 mg/dL Abnormal Negative [facility] Comment on above: Result Comment: . Performed By: #### C UA2, DRGA4 #### [address] [place], [place] RBC LM.HPF (Urine sed) [#/Area] Negative Normal 0-2 [facility] Comment on above: Result Comment: . Performed By: #### C UA2, DRGA4 #### [address] [address] [place], [place] Specific [place],Urine 1.025 Normal 1.005 - 1.030 [facility] Comment on above: Result Comment: . Performed By: #### C UA2, DRGA4 #### [facility] [address] [facility], [place] Squamous Epithelial 0 - 2 Normal 3-5 [facility] Comment on above: Result Comment: . Performed By: #### C UA2, DRGA4 #### [facility] [address] [facility] [place] Urobilinogen,Urine Normal Normal Normal (0-1) [facility] Comment on above: Result Comment: . Performed By: #### C UA2, DRGA4 #### [facility] [address] [facility] [place] WBC, Urine 0 - 2 Normal 0-5 [facility] Comment on above: Result Comment: . Performed By: #### C UA2, DRGA4 #### [address] [place], [place] Drugs of Abuseon 06-20-2021 Methadone, Ur Negative Normal [facility] Comment on above: Performed By: #### C UA2, DRGA4 #### [address] [address] [address] [facility], [place] Cocaine, Ur Negative Normal [facility] Comment on above: Performed By: #### C UA2, DRGA4 #### [facility] [address] [facility], [place] Opiates, Ur Positive Normal [facility] Comment on above: Performed By: #### C UA2, DRGA4 #### [facility] [address] [facility] Barbiturates, Ur Negative Normal [facility] Comment on above: Performed By: #### C UA2, DRGA4 #### [address] [address] [address] [facility], [place] Phencyclidine (PCP), Ur Positive Normal [facility] Comment on above: Result Comment: The expected value for all of the drugs listed above is Negative. The following drugs or drug groups have been screened for by Immunoassay at the following thresholds: Amphetamine class (1000 ng/mL), Barbiturates (200 ng/mL), Benzodiazepines (200 ng/mL), Cocaine (300 ng/mL), Methadone (300 ng/mL), Opiates (300 ng/mL), Oxycodone (100 ng/mL), and PCP (25 ng/mL). NOTE: These results are for medical treatment only. Analysis performed using non-forensic procedures. POSITIVE results are NOT confirmed by a more specific alternative method unless requested. If confirmation is needed, request confirmation under separate order. Performed By: #### C UA2, DRGA4 #### [address] [place], [place] Amphetamines, Ur Negative Normal [facility] Comment on above: Performed By: #### C UA2, DRGA4 #### [address] Benzodiazepines, Ur Negative Normal [facility] Comment on above: Performed By: #### C UA2, DRGA4 #### [address] Oxycodone/Oxymorphine,U r Negative Normal [facility] Comment on above: Performed By: #### C UA2, DRGA4 #### [address] [place], [place] Ethanol Serum/Plasmaon 06-20 Ethanol-Serum/Plasma < 0.010 Normal 0.000-0.010 [facility] Comment on above: Result Comment: NOTE : This result is for medical treatment only. Analysis performed using non-forensic procedures. Performed By: #### C MP3, ETOH4, HEMDF, ACET4 #### [address] [place], [place] Hemogram w/ Autodiffon 06-20 Abs Baso Cnt 0.0 10*3/uL Normal 0.0-0.2 [facility] Comment on above: Performed By: #### C MP3, ETOH4, HEMDF, ACET4 #### [address] [place], [place] Abs Neutrophile Cnt 2.7 10*3/uL Normal 1.8-7.0 [facility] Comment on above: Performed By: #### C MP3, ETOH4, HEMDF, ACET4 #### [address] [place], [place] Basophils/100 WBC (Bld) 0.4 % Normal 0.0-2.0 S [facility] Comment on above: Performed By: #### C MP3, ETOH4, HEMDF, ACET4 #### [address] [place], [place] Eosinophils (Bld) [#/Vol] 0.1 10*3/uL Normal 0.0-0.5 [facility] Comment on above: Performed By: #### C MP3, ETOH4, HEMDF, ACET4 #### [address] [address] [place], [place] Eosinophils/100 WBC (Bld) 1.1 % Normal 1.0-6.0 [facility] Comment on above: Performed By: #### C MP3, ETOH4, HEMDF, ACET4 #### [address] [address] [place], [place] Erythrocyte distribution width (RBC) [Ratio] 14.5 % Normal 11.5-14.5 [facility] Comment on above: Performed By: #### C MP3, ETOH4, HEMDF, ACET4 #### [address] Granulocytes/100 WBC (Bld) 49.5 % Normal 40.0-80.0 [facility] Comment on above: Performed By: #### C MP3, ETOH4, HEMDF, ACET4 #### [address] [place], [place] Hematocrit (Bld) [Volume fraction] 43.4 % Normal 40.0-52.0 [facility] Comment on above: Performed By: #### C MP3, ETOH4, HEMDF, ACET4 #### [address] [address] [place], [place] Hemoglobin (Bld) [Mass/Vol] 14.9 g/dL Normal 13.0-18.0 [facility] Comment on above: Performed By: #### C MP3, ETOH4, HEMDF, ACET4 #### [address] [address] [place], [place] Lymphocytes (Bld) [#/Vol] 2.2 10*3/uL Normal 1.0-4.3 [facility] Comment on above: Performed By: #### C MP3, ETOH4, HEMDF, ACET4 #### [address] Lymphocytes/100 WBC (Bld) 41.2 % High 20.0-40.0 [facility] Comment on above: Performed By: #### C MP3, ETOH4, HEMDF, ACET4 #### [address] MCH (RBC) [Entitic mass] 31.0 pg Normal 26.0-34.0 [facility] Comment on above: Performed By: #### C MP3, ETOH4, HEMDF, ACET4 #### [address] MCHC 34.2 % Normal 32.0-36.0 [facility] Comment on above: Performed By: #### C MP3, ETOH4, HEMDF, ACET4 #### [address] MCV (RBC) [Entitic vol] 90.5 fL Normal 80.0-98.0 S [facility] Comment on above: Performed By: #### C MP3, ETOH4, HEMDF, ACET4 #### [address] Monocytes (Bld) [#/Vol] 0.4 10*3/uL Normal 0.0-0.8 [facility] Comment on above: Performed By: #### C MP3, ETOH4, HEMDF, ACET4 #### [address] Monocytes/100 WBC (Bld) 7.8 % Normal 2.0-10.0 [facility] Comment on above: Performed By: #### C MP3, ETOH4, HEMDF, ACET4 #### [facility] [address] [place], [place] Platelet mean volume (Bld) [Entitic vol] 6.3 fL Low 7.4-10.4 [facility] Comment on above: Performed By: #### C MP3, ETOH4, HEMDF, ACET4 #### [address] [place], [place] Platelets (Bld) [#/Vol] 222 10*3/uL Normal 140-440 [facility] Comment on above: Performed By: #### C MP3, ETOH4, HEMDF, ACET4 #### [address] [place], [place] RBC (Bld) [#/Vol] 4.80 10*6/uL Normal 4.40-5.90 [facility] Comment on above: Performed By: #### C MP3, ETOH4, HEMDF, ACET4 #### [address] [place], [place] WBC (Bld) [#/Vol] 5.4 10*3/uL Normal 3.6-10.7 [facility] Comment on above: Performed By: #### C MP3, ETOH4, HEMDF, ACET4 #### [address] [place], [place] SARS-CoV-2 Antigenon 022 SARS-CoV-2 Antigen Negative Normal Negative [facility] Comment on above: Result Comment: A negative result does not rule out the possibility of SARS-CoV-2 infection. NAAT-based methods should be considered for symptomatic patients presenting greater than seven days after onset of symptoms. Method: Lateral flow immunoassay. Fact sheets for healthcare providers and patients can be found at the following sites: https://www.fda.gov/media/534686/download https://www.fda.gov/media/978309/download Performed By: #### C OVAG #### [address] [place], [place] Vital Signs Date Time Vital Sign Value Performing Clinician Facility 10-19-2024 14:08-0400 Body mass index (BMI) [Ratio] 28.25 kg/m2 Funmi Suppan BISCUIT 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 Work Phone: [facility] 10-19-2024 14:08-0400 Body weight 99.79 kg Funmi Suppan BISCUIT 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 Work Phone: [facility] 10-19-2024 14:08-0400 Diastolic blood pressure 76 mm[Hg] Funmi Suppan BISCUIT 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 Work Phone: [facility] 10-19-2024 14:08-0400 Heart rate 83 /min Funmi Suppan BISCUIT 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 Work Phone: [facility] 10-19-2024 14:08-0400 SaO2% (BldA) [Mass fraction] 98 % Funmi Suppan BISCUIT 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 Work Phone: [facility] 10-19-2024 14:08-0400 Systolic blood pressure 120 mm[Hg] Funmi Suppan BISCUIT 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 Work Phone: [facility] 10-17-2024 15:00-0400 Heart rate 80 /min Dr. Alan Castillo MD Work Phone: [facility] 10-17-2024 15:00-0400 Respiratory rate 20 /min Dr. Alan Castillo MD Work Phone: [facility] 10-17-2024 15:00-0400 SaO2% (BldA) [Mass fraction] 97 % Dr. Alan Castillo MD Work Phone: [facility] 10-17-2024 11:16-0400 Body height 182.[address] Alan Castillo MD Work Phone: [facility] 10-17-2024 11:16-0400 Body mass index (BMI) [Ratio] 30.2 kg/m2 Dr. Alan Castillo MD Work Phone: [facility] 10-17-2024 11:16-0400 Body temperature 97.7 [degF] Dr. Alan Castillo MD Work Phone: 9(971)218-758924 [place] [address] 10-17-2024 11:16-0400 Body weight [address] Alan Castillo MD Work Phone: 5(062)109-197224 [place] [address] 10-17-2024 11:16-0400 Diastolic blood pressure 98 mm[Hg] Dr. Alan Castillo MD Work Phone: 8(214)250-498324 [place] [address] 10-17-2024 11:16-0400 Systolic blood pressure 155 mm[Hg] Dr. Alan Castillo MD Work Phone: 3(950)391-422124 [place] [address] 06-17-2024 06:38-0400 Diastolic blood pressure 88 mm[Hg] Dr. Alan Castillo MD Work Phone: 2(532)679-460924 [place] [address] 06-17-2024 06:38-0400 Heart rate 87 /min Dr. Alan Castillo MD Work Phone: 0(965)936-939124 [place] [address] 06-17-2024 06:38-0400 Respiratory rate 18 /min Dr. Alan Castillo MD Work Phone: 8(821)670-683424 [place] [address] 06-17-2024 06:38-0400 SaO2% (BldA) [Mass fraction] 97 % Dr. Alan Castillo MD Work Phone: 7(443)505-755124 [place] [address] 06-17-2024 06:38-0400 Systolic blood pressure 114 mm[Hg] Dr. Alan Castillo MD Work Phone: 1(644)708-856624 [place] [address] 06-17-2024 04:31-0400 Body temperature 98.2 [degF] Dr. Alan Castillo MD Work Phone: 0(595)696-347624 [place] [address] 06-16-2024 19:57-0400 Body height 177.[address] Alan Castillo MD Work Phone: 0(484)405-725524 [place] [address] 06-16-2024 19:57-0400 Body mass index (BMI) [Ratio] 30.2 kg/m2 Dr. Alan Castillo MD Work Phone: 3(620)567-547624 [place] [address] 06-16-2024 19:57-0400 Body weight 95.[address] Alan Castillo MD Work Phone: [facility] 06-01-2024 16:58-0500 Body temperature 98.29 [degF] Carson Polo MD Work Phone: [facility] [place] 06-01-2024 16:58-0500 Diastolic blood pressure 88 mm[Hg] Carson Polo MD Work Phone: [facility] 06-01-2024 16:58-0500 Heart rate 115 /min Carson Polo MD Work Phone: [facility] [place] 06-01-2024 16:58-0500 Respiratory rate 20 /min Carson Polo MD Work Phone: [facility] 06-01-2024 16:58-0500 SaO2% (BldA) [Mass fraction] 96 % Carson Polo MD Work Phone: [facility] 06-01-2024 16:58-0500 Systolic blood pressure 126 mm[Hg] Carson Polo MD Work Phone: [facility] 03-24-2024 22:27-0500 Body temperature 97.81 [degF] Ana Salgado MD Work Phone: [facility] [place] 03-24-2024 22:27-0500 Diastolic blood pressure 74 mm[Hg] Ana Salgado MD Work Phone: [facility] [place] 03-24-2024 22:27-0500 Heart rate 103 /min Ana Salgado MD Work Phone: [facility] [place] 03-24-2024 22:27-0500 Respiratory rate 20 /min Ana Salgado MD Work Phone: [facility] [place] 03-24-2024 22:27-0500 SaO2% (BldA) [Mass fraction] 98 % Ana Salgado MD Work Phone: [facility] [place] 03-24-2024 22:27-0500 Systolic blood pressure 136 mm[Hg] Ana Salgado MD Work Phone: [facility] [place] 03-24-2024 17:15-0500 Body temperature 97.5 [degF] Ramon Gombash DO Work Phone: [facility] [place] 03-24-2024 17:15-0500 Diastolic blood pressure 80 mm[Hg] Ramon Gombash DO Work Phone: [facility] [place] 03-24-2024 17:15-0500 Heart rate 99 /min Ramon Gombash DO Work Phone: [facility] [place] 03-24-2024 17:15-0500 Respiratory rate 16 /min Ramon Gombash DO Work Phone: [facility] [place] 03-24-2024 17:15-0500 SaO2% (BldA) [Mass fraction] 98 % Ramon Gombash DO Work Phone: [facility] [place] 03-24-2024 17:15-0500 Systolic blood pressure 140 mm[Hg] Ramon Gombash DO Work Phone: [facility] [place] 03-23-2024 23:25-0500 Body temperature 96.01 [degF] Leni Mudrakola DO Work Phone: [facility] [place] 03-23-2024 23:25-0500 Diastolic blood pressure 79 mm[Hg] Leni Mudrakola DO Work Phone: [facility] [place] 03-23-2024 23:25-0500 Heart rate 104 /min Leni Mudrakola DO Work Phone: [facility] [place] 03-23-2024 23:25-0500 Respiratory rate 18 /min Leni Mudrakola DO Work Phone: [facility] [place] 03-23-2024 23:25-0500 SaO2% (BldA) [Mass fraction] 100 % Leni Mudrakola DO Work Phone: [facility] 03-23-2024 23:25-0500 Systolic blood pressure 114 mm[Hg] Leni Mudrakola DO Work Phone: [facility] 03-22-2024 01:32-0500 Body mass index (BMI) [Ratio] 28.2 kg/m2 Dr. Alan Castillo MD Work Phone: [facility] 03-22-2024 01:32-0500 Body temperature 97.7 [degF] Dr. Alan Castillo MD Work Phone: [facility] 03-22-2024 01:32-0500 Body weight 89.[address] Alan Castillo MD Work Phone: [facility] 03-22-2024 01:32-0500 Diastolic blood pressure 79 mm[Hg] Dr. Alan Castillo MD Work Phone: [facility] 03-22-2024 01:32-0500 Heart rate 119 /min Dr. Alan Castillo MD Work Phone: [facility] 03-22-2024 01:32-0500 Respiratory rate 18 /min Dr. Alan Castillo MD Work Phone: [facility] 03-22-2024 01:32-0500 SaO2% (BldA) [Mass fraction] 98 % Dr. Alan Castillo MD Work Phone: [facility] 03-22-2024 01:32-0500 Systolic blood pressure 118 mm[Hg] Dr. Alan Castillo MD Work Phone: [facility] 02-19-2024 08:17-0500 Body temperature 98.71 [degF] Erma Spivey BISCUIT MACHINE OPERATOR-FITNESS AND WELLNESS MANAGER Work Phone: [facility] 02-19-2024 08:17-0500 Body weight 83.01 kg Erma Spivey BISCUIT MACHINE OPERATOR-FITNESS AND WELLNESS MANAGER Work Phone: [facility] 02-19-2024 08:17-0500 Diastolic blood pressure 67 mm[Hg] Erma Spivey BISCUIT MACHINE OPERATOR-FITNESS AND WELLNESS MANAGER Work Phone: [facility] 02-19-2024 08:17-0500 Heart rate 108 /min Erma Spivey BISCUIT MACHINE OPERATOR-FITNESS AND WELLNESS MANAGER Work Phone: [facility] 02-19-2024 08:17-0500 Respiratory rate 18 /min Erma Spivey APRN-FITNESS AND WELLNESS MANAGER Work Phone: [facility] 02-19-2024 08:17-0500 SaO2% (BldA) [Mass fraction] 100 % Erma Spivey APRN-FITNESS AND WELLNESS MANAGER Work Phone: [facility] 02-19-2024 08:17-0500 Systolic blood pressure 121 mm[Hg] Erma Spivey APRN-FITNESS AND WELLNESS MANAGER Work Phone: [facility] 12-26-2023 17:38-0400 Body temperature 98.42 [degF] ANJELICA MATTHEWSESKA DO [facility] 12-26-2023 17:38-0400 Diastolic Blood Pressure Non-Invasive 76 mm[Hg] ANJELICA MATTHEWSESKA DO [facility] 12-26-2023 17:38-0400 Heart rate 96 /min ANJELICA MILLERKA DO [facility] 12-26-2023 17:38-0400 Respiratory rate 16 /min ANJELICA MILLERKA DO [facility] 12-26-2023 17:38-0400 Systolic Blood Pressure Non-Invasive 116 mm[Hg] ANJELICA DURESKA DO [facility] 12-22-2023 16:22-0400 Body mass index (BMI) [Ratio] 25.27 kg/m2 Gill Jasso MD Work Phone: [facility] 12-22-2023 16:22-0400 Body temperature 97.81 [degF] Gill Jasso MD Work Phone: [facility] 12-22-2023 16:22-0400 Body weight 84.5 kg Gill Jasso MD Work Phone: [facility] 12-22-2023 16:22-0400 Diastolic blood pressure 70 mm[Hg] Gill Jasso MD Work Phone: [facility] 12-22-2023 16:22-0400 Heart rate 86 /min Gill Jasso MD Work Phone: [facility] 12-22-2023 16:22-0400 Respiratory rate 16 /min Gill Jasso MD Work Phone: [facility] 12-22-2023 16:22-0400 SaO2% (BldA) [Mass fraction] 97 % Gill Jasso MD Work Phone: [facility] 12-22-2023 16:22-0400 Systolic blood pressure 122 mm[Hg] Gill Jasso MD Work Phone: [facility] 08-25-2023 21:09-0400 Body temperature 97.16 [degF] AALIYAH BARROSO MD [facility] 08-25-2023 21:09-0400 Diastolic Blood Pressure Non-Invasive 71 mm[Hg] AALIYAH BARROSO MD [facility] 08-25-2023 21:09-0400 Heart rate 68 /min AALIYAH BARROSO MD [facility] 08-25-2023 21:09-0400 Respiratory rate 18 /min AALIYAH BARROSO MD [facility] 08-25-2023 21:09-0400 Systolic Blood Pressure Non-Invasive 116 mm[Hg] AALIYAH BARROSO MD [facility] 08-25-2023 18:25-0400 Body temperature 96.98 [degF] AALIYAH BARROSO MD [facility] 08-25-2023 18:25-0400 Body weight 90 kg AALIYAH BARROSO MD [facility] 08-25-2023 18:25-0400 Diastolic Blood Pressure Non-Invasive 56 mm[Hg] AALIYAH BARROSO MD [facility] 08-25-2023 18:25-0400 Heart rate 68 /min AALIYAH BARROSO MD [facility] 08-25-2023 18:25-0400 Respiratory rate 18 /min AALIYAH BARROSO MD [facility] 08-25-2023 18:25-0400 Systolic Blood Pressure Non-Invasive 118 mm[Hg] AALIYAH BARROSO MD [facility] 08-11-2023 13:39-0400 Body mass index (BMI) [Ratio] 27.54 kg/m2 Krislyn Aberegg PA Work Phone: [facility] 08-11-2023 13:39-0400 Body temperature 97.9 [degF] Krislyn Aberegg PA Work Phone: [facility] 08-11-2023 13:39-0400 Body weight 92.1 kg Krislyn Aberegg PA Work Phone: [facility] 08-11-2023 13:39-0400 Diastolic blood pressure 82 mm[Hg] Krislyn Aberegg PA Work Phone: [facility] 08-11-2023 13:39-0400 Heart rate 100 /min Krislyn Aberegg PA Work Phone: [facility] 08-11-2023 13:39-0400 Respiratory rate 21 /min Krislyn Aberegg PA Work Phone: [facility] 08-11-2023 13:39-0400 SaO2% (BldA) [Mass fraction] 98 % Krislyn Aberegg PA Work Phone: [facility] 08-11-2023 13:39-0400 Systolic blood pressure 120 mm[Hg] Krislyn Aberegg PA Work Phone: [facility] 08-10-2023 12:34-0400 Body height 182.88 cm [facility] 08-10-2023 12:34-0400 Body temperature 96.5 [degF] [facility] 08-10-2023 12:34-0400 Diastolic blood pressure 71 mm[Hg] [facility] 08-10-2023 12:34-0400 Heart rate 99 /min [facility] 08-10-2023 12:34-0400 Respiratory rate 14 /min [facility] 08-10-2023 12:34-0400 SaO2% (BldA) [Mass fraction] 99 % [facility] 08-10-2023 12:34-0400 Systolic blood pressure 122 mm[Hg] [facility] 08-01-2023 16:40-0400 Body height 182.88 cm [facility] 08-01-2023 16:40-0400 Body temperature 97.2 [degF] [facility] 08-01-2023 16:40-0400 Diastolic blood pressure 69 mm[Hg] [facility] 08-01-2023 16:40-0400 Heart rate 84 /min [facility] 08-01-2023 16:40-0400 Respiratory rate 16 /min [facility] 08-01-2023 16:40-0400 SaO2% (BldA) [Mass fraction] 97 % [facility] 08-01-2023 16:40-0400 Systolic blood pressure 117 mm[Hg] [facility] 07-31-2023 11:36-0400 Diastolic blood pressure 40 mm[Hg] [facility] 07-31-2023 11:36-0400 Heart rate 79 /min [facility] 07-31-2023 11:36-0400 Respiratory rate 16 /min [facility] 07-31-2023 11:36-0400 SaO2% (BldA) [Mass fraction] 98 % [facility] 07-31-2023 11:36-0400 Systolic blood pressure 90 mm[Hg] [facility] 07-31-2023 10:30-0400 Body height 182.88 cm [facility] 07-31-2023 10:30-0400 Body mass index (BMI) [Ratio] 27.3 kg/m2 [facility] 07-31-2023 10:30-0400 Body temperature 97.2 [degF] [facility] 07-31-2023 10:30-0400 Body weight 91.62 kg [facility] 07-31-2023 03:05-0400 Body temperature 97.1 [degF] [facility] 07-31-2023 03:05-0400 Diastolic blood pressure 97 mm[Hg] [facility] 07-31-2023 03:05-0400 Heart rate 86 /min [facility] 07-31-2023 03:05-0400 Respiratory rate 12 /min [facility] 07-31-2023 03:05-0400 SaO2% (BldA) [Mass fraction] 98 % [facility] 07-31-2023 03:05-0400 Systolic blood pressure 126 mm[Hg] [facility] 07-30-2023 23:52-0400 Body height 182.88 cm [facility] 07-30-2023 23:52-0400 Body mass index (BMI) [Ratio] 28.3 kg/m2 [facility] 07-30-2023 23:52-0400 Body weight 94.8 kg [facility] 07-09-2023 15:02-0400 Body height 182.88 cm [facility] 07-09-2023 15:02-0400 Body mass index (BMI) [Ratio] 27.8 kg/m2 [facility] 07-09-2023 15:02-0400 Body temperature 97 [degF] [facility] 07-09-2023 15:02-0400 Body weight 93 kg [facility] 07-09-2023 15:02-0400 Diastolic blood pressure 95 mm[Hg] [facility] 07-09-2023 15:02-0400 Heart rate 127 /min [facility] 07-09-2023 15:02-0400 Respiratory rate 18 /min [facility] 07-09-2023 15:02-0400 SaO2% (BldA) [Mass fraction] 97 % [facility] 07-09-2023 15:02-0400 Systolic blood pressure 138 mm[Hg] [facility] 07-09-2023 14:22-0400 Body weight 90.99 kg Keo Jose L BISCUIT 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 Work Phone: [facility] 07-09-2023 14:22-0400 Diastolic blood pressure 62 mm[Hg] Keo Joes L BISCUIT 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 Work Phone: [facility] 07-09-2023 14:22-0400 Heart rate 135 /min Keo Jose L BISCUIT 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 Work Phone: [facility] 07-09-2023 14:22-0400 Respiratory rate 16 /min Keo Jose L BISCUIT 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 Work Phone: [facility] 07-09-2023 14:22-0400 SaO2% (BldA) [Mass fraction] 96 % Keo Domingo BISCUIT 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 Work Phone: [facility] 07-09-2023 14:22-0400 Systolic blood pressure 108 mm[Hg] Keo Jose L BISCUIT 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 Work Phone: [facility] 07-02-2023 09:40-0400 Body height 182.88 cm [facility] 07-02-2023 09:40-0400 Body mass index (BMI) [Ratio] 27.1 kg/m2 [facility] 07-02-2023 09:40-0400 Body temperature 97.9 [degF] [facility] 07-02-2023 09:40-0400 Body weight 90.9 kg [facility] 07-02-2023 09:40-0400 Diastolic blood pressure 87 mm[Hg] [facility] 07-02-2023 09:40-0400 Heart rate 106 /min [facility] 07-02-2023 09:40-0400 Respiratory rate 22 /min [facility] 07-02-2023 09:40-0400 SaO2% (BldA) [Mass fraction] 94 % [facility] 07-02-2023 09:40-0400 Systolic blood pressure 129 mm[Hg] [facility] 06-24-2023 04:07-0400 Body temperature 97.1 [degF] [facility] 06-24-2023 04:07-0400 Diastolic blood pressure 100 mm[Hg] [facility] 06-24-2023 04:07-0400 Heart rate 91 /min [facility] 06-24-2023 04:07-0400 Respiratory rate 18 /min [facility] 06-24-2023 04:07-0400 SaO2% (BldA) [Mass fraction] 98 % [facility] 06-24-2023 04:07-0400 Systolic blood pressure 147 mm[Hg] [facility] 06-24-2023 02:59-0400 Body height 182.88 cm [facility] 06-23-2023 03:39-0400 Body temperature 97.7 [degF] [facility] 06-23-2023 03:39-0400 Diastolic blood pressure 59 mm[Hg] [facility] 06-23-2023 03:39-0400 Heart rate 102 /min [facility] 06-23-2023 03:39-0400 Respiratory rate 18 /min [facility] 06-23-2023 03:39-0400 SaO2% (BldA) [Mass fraction] 98 % [facility] 06-23-2023 03:39-0400 Systolic blood pressure 117 mm[Hg] [facility] 06-23-2023 03:17-0400 Body height 182.88 cm [facility] 06-15-2023 15:08-0400 Body temperature 98 [degF] [facility] 06-15-2023 15:08-0400 Diastolic blood pressure 72 mm[Hg] [facility] 06-15-2023 15:08-0400 Heart rate 81 /min [facility] 06-15-2023 15:08-0400 Respiratory rate 16 /min [facility] 06-15-2023 15:08-0400 SaO2% (BldA) [Mass fraction] 100 % [facility] 06-15-2023 15:08-0400 Systolic blood pressure 112 mm[Hg] [facility] 06-14-2023 22:00-0400 Inhaled oxygen flow rate 4 L/min [facility] 06-14-2023 14:27-0400 Body height 182.88 cm [facility] 06-14-2023 14:27-0400 Body mass index (BMI) [Ratio] 28.1 kg/m2 [facility] 06-14-2023 14:27-0400 Body weight 94.2 kg [facility] 06-13-2023 13:52-0400 Body height 182.88 cm [facility] 06-13-2023 13:52-0400 Body mass index (BMI) [Ratio] 27.3 kg/m2 [facility] [facility]23 13:52-0400 Body temperature 97.3 [degF] [facility] 06-13-2023 13:52-0400 Body weight 91.48 kg [facility] 06-13-2023 13:52-0400 Diastolic blood pressure 91 mm[Hg] [facility] 06-13-2023 13:52-0400 Heart rate 129 /min [facility] 06-13-2023 13:52-0400 Respiratory rate 20 /min [facility] 06-13-2023 13:52-0400 SaO2% (BldA) [Mass fraction] 98 % [facility] 06-13-2023 13:52-0400 Systolic blood pressure 146 mm[Hg] [facility] 06-12-2023 08:05-0500 Body temperature 97.4 [degF] [facility] 06-12-2023 08:05-0500 Diastolic blood pressure 86 mm[Hg] [facility] 06-12-2023 08:05-0500 Heart rate 99 /min [facility] 06-12-2023 08:05-0500 Respiratory rate 16 /min [facility] 06-12-2023 08:05-0500 SaO2% (BldA) [Mass fraction] 99 % [facility] 06-12-2023 08:05-0500 Systolic blood pressure 134 mm[Hg] [facility] 06-12-2023 02:23-0500 Body height 182.88 cm [facility] 06-12-2023 02:23-0500 Body mass index (BMI) [Ratio] 28.3 kg/m2 [facility] 06-12-2023 02:23-0500 Body weight 94.9 kg [facility] 06-10-2023 08:54-0500 Diastolic blood pressure 71 mm[Hg] [facility] 06-10-2023 08:54-0500 Heart rate 74 /min [facility] 06-10-2023 08:54-0500 Respiratory rate 17 /min [facility] 06-10-2023 08:54-0500 SaO2% (BldA) [Mass fraction] 96 % [facility] 06-10-2023 08:54-0500 Systolic blood pressure 103 mm[Hg] [facility] 06-10-2023 07:04-0500 Body height 182.88 cm [facility] 06-10-2023 07:04-0500 Body mass index (BMI) [Ratio] 28.3 kg/m2 [facility] 06-10-2023 07:04-0500 Body temperature 96.6 [degF] [facility] 06-10-2023 07:04-0500 Body weight 94.6 kg [facility] 06-01-2023 14:06-0500 Body mass index (BMI) [Ratio] 28.3 kg/m2 [facility] 06-01-2023 14:06-0500 Body temperature 97.5 [degF] [facility] 06-01-2023 14:06-0500 Body weight 94.84 kg [facility] 06-01-2023 14:06-0500 Diastolic blood pressure 95 mm[Hg] [facility] 06-01-2023 14:06-0500 Heart rate 116 /min [facility] 06-01-2023 14:06-0500 Respiratory rate 18 /min [facility] 06-01-2023 14:06-0500 SaO2% (BldA) [Mass fraction] 96 % [facility] 06-01-2023 14:06-0500 Systolic blood pressure 119 mm[Hg] [facility] 12-08-2022 07:50-0400 Body weight 100.7 kg Lucila Wetzel APRN.CNP Work Phone: [facility] 12-08-2022 07:50-0400 Diastolic blood pressure 88 mm[Hg] Lucila Larioshof BISCUIT 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 Work Phone: [facility] 12-08-2022 07:50-0400 Heart rate 93 /min Lucila Larioshof BISCUIT 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 Work Phone: [facility] 12-08-2022 07:50-0400 Respiratory rate 16 /min Lucila Larioshof BISCUIT 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 Work Phone: [facility] 12-08-2022 07:50-0400 SaO2% (BldA) [Mass fraction] 96 % Lucilaberhane Larioshof BISCUIT 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 Work Phone: [facility] 12-08-2022 07:50-0400 Systolic blood pressure 130 mm[Hg] Lucila Larioshof BISCUIT 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 Work Phone: [facility] 12-07-2022 07:57-0400 Heart rate 83 /min [facility] 12-07-2022 07:17-0400 Body height 182.88 cm [facility] 12-07-2022 07:17-0400 Body mass index (BMI) [Ratio] 31.1 kg/m2 [facility] 12-07-2022 07:17-0400 Body temperature 97.1 [degF] [facility] 12-07-2022 07:17-0400 Body weight 104.32 kg [facility] 12-07-2022 07:17-0400 Diastolic blood pressure 81 mm[Hg] [facility] 12-07-2022 07:17-0400 Respiratory rate 18 /min [facility] 12-07-2022 07:17-0400 SaO2% (BldA) [Mass fraction] 95 % [facility] 12-07-2022 07:17-0400 Systolic blood pressure 114 mm[Hg] [facility] 11-24-2022 14:52-0400 Diastolic blood pressure 70 mm[Hg] [facility] 11-24-2022 14:52-0400 Heart rate 78 /min [facility] 11-24-2022 14:52-0400 Respiratory rate 16 /min [facility] 11-24-2022 14:52-0400 SaO2% (BldA) [Mass fraction] 96 % [facility] 11-24-2022 14:52-0400 Systolic blood pressure 107 mm[Hg] [facility] 11-24-2022 06:21-0400 Body mass index (BMI) [Ratio] 31.7 kg/m2 [facility] 11-24-2022 06:21-0400 Body temperature 97.3 [degF] [facility] 11-24-2022 06:21-0400 Body weight 106.1 kg [facility] 11-23-2022 20:17-0400 Body height 182.88 cm [facility] 11-23-2022 20:17-0400 Body temperature 97.1 [degF] [facility] 11-23-2022 20:17-0400 Diastolic blood pressure 63 mm[Hg] [facility] 11-23-2022 20:17-0400 Heart rate 85 /min [facility] 11-23-2022 20:17-0400 Respiratory rate 16 /min [facility] 11-23-2022 20:17-0400 SaO2% (BldA) [Mass fraction] 97 % [facility] 11-23-2022 20:17-0400 Systolic blood pressure 101 mm[Hg] [facility] 11-13-2022 21:18-0400 Diastolic blood pressure 79 mm[Hg] [facility] 11-13-2022 21:18-0400 Heart rate 87 /min [facility] 11-13-2022 21:18-0400 Respiratory rate 16 /min [facility] 11-13-2022 21:18-0400 SaO2% (BldA) [Mass fraction] 97 % [facility] 11-13-2022 21:18-0400 Systolic blood pressure 131 mm[Hg] [facility] 11-13-2022 18:58-0400 Body temperature 98.9 [degF] [facility] 11-13-2022 08:32-0400 Body height 182.88 cm [facility] 11-13-2022 08:32-0400 Body mass index (BMI) [Ratio] 30.7 kg/m2 [facility] 11-13-2022 08:32-0400 Body weight 102.6 kg [facility] 11-11-2022 05:50-0400 Diastolic blood pressure 85 mm[Hg] [facility] 11-11-2022 05:50-0400 Heart rate 87 /min [facility] 11-11-2022 05:50-0400 Respiratory rate 17 /min [facility] 11-11-2022 05:50-0400 SaO2% (BldA) [Mass fraction] 98 % [facility] 11-11-2022 05:50-0400 Systolic blood pressure 134 mm[Hg] [facility] 11-11-2022 02:07-0400 Body height 182.88 cm [facility] 11-11-2022 02:07-0400 Body mass index (BMI) [Ratio] 31.5 kg/m2 [facility] 11-11-2022 02:07-0400 Body temperature 96.7 [degF] [facility] 11-11-2022 02:07-0400 Body weight 105.4 kg [facility] 11-09-2022 09:53-0400 Body temperature 97 [degF] Verena KAPOOR-C Work Phone: [facility] 11-09-2022 09:53-0400 Body weight 103.87 kg Verena KAPOOR-C Work Phone: [facility] 11-09-2022 09:53-0400 Diastolic blood pressure 66 mm[Hg] Verena KAPOOR-C Work Phone: [facility] 11-09-2022 09:53-0400 Heart rate 123 /min Verena KAPOOR-C Work Phone: [facility] 11-09-2022 09:53-0400 Respiratory rate 18 /min Verena Evans PA-C Work Phone: [facility] 11-09-2022 09:53-0400 Systolic blood pressure 104 mm[Hg] Verena KAPOOR-C Work Phone: [facility] 09-20-2022 03:23-0400 Diastolic blood pressure 79 mm[Hg] [facility] 09-20-2022 03:23-0400 Heart rate 100 /min [facility] 09-20-2022 03:23-0400 Respiratory rate 16 /min [facility] 09-20-2022 03:23-0400 SaO2% (BldA) [Mass fraction] 96 % [facility] 09-20-2022 03:23-0400 Systolic blood pressure 118 mm[Hg] [facility] 09-20-2022 02:30-0400 Body mass index (BMI) [Ratio] 31.3 kg/m2 [facility] 09-20-2022 02:30-0400 Body weight 104.8 kg [facility] 09-20-2022 01:46-0400 Body height 182.88 cm [facility] 09-20-2022 01:46-0400 Body temperature 98 [degF] [facility] 08-25-2022 11:19-0400 Body weight 102.88 kg Keo Domingo APRN.FITNESS AND WELLNESS MANAGER Work Phone: [facility] 08-25-2022 11:19-0400 Diastolic blood pressure 78 mm[Hg] Keo Domingo APRN.FITNESS AND WELLNESS MANAGER Work Phone: [facility] 08-25-2022 11:19-0400 Heart rate 94 /min Keo Domingo BISCUIT 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 Work Phone: [facility] 08-25-2022 11:19-0400 Respiratory rate 16 /min Keo Domingo BISCUIT 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 Work Phone: [facility] 08-25-2022 11:19-0400 SaO2% (BldA) [Mass fraction] 98 % Keo Domingo APRN.FITNESS AND WELLNESS MANAGER Work Phone: [facility] 08-25-2022 11:19-0400 Systolic blood pressure 138 mm[Hg] Keo Domingo APRN.FITNESS AND WELLNESS MANAGER Work Phone: [facility] 08-16-2022 10:42-0400 Respiratory rate 16 /min [facility] 08-16-2022 05:37-0400 Body temperature 97.2 [degF] [facility] 08-16-2022 05:37-0400 Diastolic blood pressure 97 mm[Hg] [facility] 08-16-2022 05:37-0400 Heart rate 77 /min [facility] 08-16-2022 05:37-0400 SaO2% (BldA) [Mass fraction] 95 % [facility] 08-16-2022 05:37-0400 Systolic blood pressure 138 mm[Hg] [facility] 08-15-2022 21:27-0400 Body mass index (BMI) [Ratio] 30.8 kg/m2 [facility] 08-15-2022 21:27-0400 Body weight 103.2 kg [facility] 08-15-2022 21:05-0400 Body height 182.88 cm [facility] 08-15-2022 09:31-0400 Body height 182.88 cm [facility] 08-15-2022 09:31-0400 Body mass index (BMI) [Ratio] 30.9 kg/m2 [facility] 08-15-2022 09:31-0400 Body temperature 96.4 [degF] [facility] 08-15-2022 09:31-0400 Body weight 103.41 kg [facility] 08-15-2022 09:31-0400 Diastolic blood pressure 94 mm[Hg] [facility] 08-15-2022 09:31-0400 Heart rate 94 /min [facility] 08-15-2022 09:31-0400 Respiratory rate 16 /min [facility] 08-15-2022 09:31-0400 SaO2% (BldA) [Mass fraction] 97 % [facility] 08-15-2022 09:31-0400 Systolic blood pressure 153 mm[Hg] [facility] 07-17-2022 07:50-0400 Body temperature 98.49 [degF] Keo Domingo APRN.FITNESS AND WELLNESS MANAGER Work Phone: [facility] 07-17-2022 07:50-0400 Body weight 107.96 kg Keo Jose L BISCUIT 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 Work Phone: [facility] 07-17-2022 07:50-0400 Diastolic blood pressure 83 mm[Hg] Keo Jose L BISCUIT 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 Work Phone: [facility] 07-17-2022 07:50-0400 Heart rate 97 /min Keo Jose L BISCUIT 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 Work Phone: [facility] 07-17-2022 07:50-0400 Respiratory rate 16 /min Keo Jose L BISCUIT 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 Work Phone: [facility] 07-17-2022 07:50-0400 SaO2% (BldA) [Mass fraction] 96 % Keo Jose L BISCUIT 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 Work Phone: [facility] 07-17-2022 07:50-0400 Systolic blood pressure 127 mm[Hg] Keo Jose L BISCUIT 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 Work Phone: [facility] 05-04-2022 07:04-0500 Body weight 105.69 kg Lucila Tannhof BISCUIT 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 Work Phone: [facility] 05-04-2022 07:04-0500 Diastolic blood pressure 80 mm[Hg] Lucila Tannhof BISCUIT 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 Work Phone: [facility] 05-04-2022 07:04-0500 Heart rate 97 /min Lucila Tannhof BISCUIT 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 Work Phone: [facility] 05-04-2022 07:04-0500 Respiratory rate 16 /min Lucila Tannhof BISCUIT 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 Work Phone: [facility] 05-04-2022 07:04-0500 SaO2% (BldA) [Mass fraction] 97 % Lucila Tannhof BISCUIT 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 Work Phone: [facility] 05-04-2022 07:04-0500 Systolic blood pressure 118 mm[Hg] Lucila Tannhof BISCUIT 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 Work Phone: [facility] 11-06-2021 09:06-0400 Diastolic blood pressure 90 mm[Hg] [facility] Work Phone: 11-06-2021 09:06-0400 Heart rate 86 /min [facility] Work Phone: 11-06-2021 09:06-0400 Respiratory rate 16 /min [facility] Work Phone: 11-06-2021 09:06-0400 SaO2% (BldA) [Mass fraction] 96 % [facility] Work Phone: 11-06-2021 09:06-0400 Systolic blood pressure 124 mm[Hg] [facility] Work Phone: 11-06-2021 06:05-0400 Body temperature 97.8 [degF] [facility] Work Phone: 11-05-2021 15:15-0400 Body height 182.88 cm [facility] Work Phone: 11-05-2021 15:15-0400 Body mass index (BMI) [Ratio] 30.4 kg/m2 [facility] Work Phone: 11-05-2021 15:15-0400 Body weight 102 kg [facility] Work Phone: 11-05-2021 03:04-0400 Diastolic blood pressure 80 mm[Hg] [facility] Work Phone: 11-05-2021 03:04-0400 Heart rate 78 /min [facility] Work Phone: 11-05-2021 03:04-0400 Respiratory rate 15 /min [facility] Work Phone: 11-05-2021 03:04-0400 SaO2% (BldA) [Mass fraction] 95 % [facility] Work Phone: 11-05-2021 03:04-0400 Systolic blood pressure 121 mm[Hg] [facility] Work Phone: 11-05-2021 01:23-0400 Body mass index (BMI) [Ratio] 31.1 kg/m2 [facility] Work Phone: 11-05-2021 01:23-0400 Body temperature 97.9 [degF] [facility] Work Phone: 11-05-2021 01:23-0400 Body weight 104.3 kg [facility] Work Phone: 07-26-2021 01:18-0400 Heart rate 87 /min [facility] Work Phone: 07-26-2021 01:18-0400 Respiratory rate 17 /min [facility] Work Phone: 07-26-2021 00:49-0400 Body height 182.88 cm [facility] Work Phone: 07-26-2021 00:49-0400 Body mass index (BMI) [Ratio] 27.1 kg/m2 [facility] Work Phone: 07-26-2021 00:49-0400 Body temperature 98.8 [degF] [facility] Work Phone: 07-26-2021 00:49-0400 Body weight 90.71 kg [facility] Work Phone: 07-26-2021 00:49-0400 Diastolic blood pressure 97 mm[Hg] [facility] Work Phone: 07-26-2021 00:49-0400 SaO2% (BldA) [Mass fraction] 98 % [facility] Work Phone: 07-26-2021 00:49-0400 Systolic blood pressure 134 mm[Hg] [facility] Work Phone: 07-07-2021 08:35-0400 Body weight 96.62 kg Lucila Wetzel APRN.CNP Work Phone: [facility] 07-07-2021 08:35-0400 Diastolic blood pressure 62 mm[Hg] Lucila Larioshof BISCUIT 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 Work Phone: [facility] 07-07-2021 08:35-0400 Heart rate 106 /min Lucila [facility] BISCUIT 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 Work Phone: [facility] 07-07-2021 08:35-0400 Respiratory rate 16 /min Lucila Lariosaultman [facility] BISCUIT 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 Work Phone: [facility] 07-07-2021 08:35-0400 SaO2% (BldA) [Mass fraction] 95 % Lucila Lariosaultman [facility] BISCUIT 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 Work Phone: [facility] 07-07-2021 08:35-0400 Systolic blood pressure 100 mm[Hg] Lucila Lariosaultman [facility] BISCUIT MACHINE OPERATOR.[facility] Work Phone: [facility] 07-05-2021 13:51-0400 Body mass index (BMI) [Ratio] 28.4 kg/m2 DO Yamila [facility] [employer] 07-05-2021 13:51-0400 Body weight 95 kg DO [facility] [employer] 05-20-2021 04:53-0500 Diastolic blood pressure 119 mm[Hg] [facility] Work Phone: 05-20-2021 04:53-0500 Heart rate 129 /min [facility] Work Phone: 05-20-2021 04:53-0500 Respiratory rate 23 /min [facility] Work Phone: 05-20-2021 04:53-0500 Systolic blood pressure 158 mm[Hg] [facility] Work Phone: 05-20-2021 03:56-0500 Body mass index (BMI) [Ratio] 29.2 kg/m2 [facility] Work Phone: 05-20-2021 03:56-0500 Body temperature 97.2 [degF] [facility] Work Phone: 05-20-2021 03:56-0500 Body weight 97.7 kg [facility] Work Phone: 05-20-2021 03:56-0500 SaO2% (BldA) [Mass fraction] 97 % [facility] Work Phone: 05-18-2021 22:15-0500 Body mass index (BMI) [Ratio] 29.5 kg/m2 [facility] Work Phone: 05-18-2021 22:15-0500 Body temperature 98.9 [degF] [facility] Work Phone: 05-18-2021 22:15-0500 Body weight 98.7 kg [facility] Work Phone: 05-18-2021 22:15-0500 Diastolic blood pressure 86 mm[Hg] [facility] Work Phone: 05-18-2021 22:15-0500 Heart rate 120 /min [facility] Work Phone: 05-18-2021 22:15-0500 Respiratory rate 19 /min [facility] Work Phone: 05-18-2021 22:15-0500 SaO2% (BldA) [Mass fraction] 96 % [facility] Work Phone: 05-18-2021 22:15-0500 Systolic blood pressure 160 mm[Hg] [facility] Work Phone: 05-14-2021 06:57-0500 Body mass index (BMI) [Ratio] 28.8 kg/m2 [facility] Work Phone: 05-14-2021 06:57-0500 Body temperature 97.9 [degF] [facility] Work Phone: 05-14-2021 06:57-0500 Body weight 96.61 kg [facility] Work Phone: 05-14-2021 06:57-0500 Diastolic blood pressure 99 mm[Hg] [facility] Work Phone: 05-14-2021 06:57-0500 Heart rate 144 /min [facility] Work Phone: 05-14-2021 06:57-0500 Respiratory rate 24 /min [facility] Work Phone: 05-14-2021 06:57-0500 SaO2% (BldA) [Mass fraction] 99 % [facility] Work Phone: 05-14-2021 06:57-0500 Systolic blood pressure 141 mm[Hg] [facility] Work Phone: 04-30-2021 01:00-0500 Respiratory rate 16 /min [facility] Work Phone: 04-29-2021 23:21-0500 Body mass index (BMI) [Ratio] 29 kg/m2 [facility] Work Phone: 04-29-2021 23:21-0500 Body temperature 97.4 [degF] [facility] Work Phone: 04-29-2021 23:21-0500 Body weight 97 kg [facility] Work Phone: 04-29-2021 23:21-0500 Diastolic blood pressure 74 mm[Hg] [facility] Work Phone: 04-29-2021 23:21-0500 Heart rate 105 /min [facility] Work Phone: 04-29-2021 23:21-0500 SaO2% (BldA) [Mass fraction] 95 % [facility] Work Phone: 04-29-2021 23:21-0500 Systolic blood pressure 112 mm[Hg] [facility] Work Phone: 04-05-2021 13:21-0500 Diastolic blood pressure 70 mm[Hg] [facility] Work Phone: 04-05-2021 13:21-0500 Systolic blood pressure 119 mm[Hg] [facility] Work Phone: 04-05-2021 11:49-0500 Body mass index (BMI) [Ratio] 29.2 kg/m2 [facility] Work Phone: 04-05-2021 11:49-0500 Body temperature 97.9 [degF] [facility] Work Phone: 04-05-2021 11:49-0500 Body weight 97.97 kg [facility] Work Phone: 04-05-2021 11:49-0500 Heart rate 103 /min [facility] Work Phone: 04-05-2021 11:49-0500 Respiratory rate 20 /min [facility] Work Phone: 04-05-2021 11:49-0500 SaO2% (BldA) [Mass fraction] 97 % [facility] Work Phone: Encounters Encounter Date Encounter Type Care Provider Facility Start: 12-19-2024 End: 12-19-2024 Telephone encounter Funmi Hummel APRN.FITNESS AND WELLNESS MANAGER Work Phone: [facility] Comment on above: Medication Problem Start: 12-12-2024 End: 12-12-2024 Telephone encounter Funmi Hummel APRN.FITNESS AND WELLNESS MANAGER Work Phone: [facility] Comment on above: Patient Question Start: 12-05-2024 End: 12-07-2024 Telephone encounter Alan Castillo MD Work Phone: [facility] Comment on above: Forms Start: 12-04-2024 ambulatory Alan Ledbetter y:[facility] Start: 11-15-2024 End: 11-15-[address] Alan Castillo MD Work Phone: -Laboratory Work Phone: Start: 11-15-2024 End: 11-15-[address] Alan Castillo MD Work Phone: -Laboratory Start: 11-06-2024 End: 11-06-2024 Telephone encounter Funmi Hummel APRN.FITNESS AND WELLNESS MANAGER Work Phone: [facility] Comment on above: Medication Problem Start: 11-02-2024 End: 11-02-[address] Alan Castillo MD Work Phone: -Laboratory [facility] Start: 11-02-2024 End: 11-02-[address] Alan Castillo MD Work Phone: -Laboratory [facility] Start: 10-26-2024 End: 10-26-2024 Follow-up encounter Funmi Hummel APRN.FITNESS AND WELLNESS MANAGER Work Phone: [facility] [place] Start: 10-20-2024 ambulatory ALAN CASTILLO Facil ity:[facility] Start: 10-20-2024 End: 10-20-2024 Subsequent hospital visit by physician [facility]r [facility] [place] Work Phone: Radiology Comment on above: Acute midline thorac ic back pain [M54.6] Start: 10-19-2024 ambulatory ALAN CASTILLO Facil ity:[facility] Start: 10-19-2024 End: 10-19-2024 Subsequent hospital visit by physician [facility] [place] Work Phone: Radiology Start: 10-19-2024 End: 10-19-2024 Office outpatient visit 15 minutes Funmi Hummel APRN.FITNESS AND WELLNESS MANAGER Work Phone: [facility] Comment on above: DDD (degenerative di sc disease), thoracic (Primary Dx); Gastroesophageal reflux disease, unspecified whether esophagitis present Start: 10-19-2024 End: 10-26-2024 Telephone encounter Alan Castillo MD Work Phone: [facility] [place] Comment on above: Insurance Authorizat ion Start: 10-19-2024 End: 10-19-2024 ambulatory ALAN CASTILLO Facility:[facility] Start: 10-17-2024 End: 10-17-2024 Emergency department patient visit Dr. Alan Castillo MD Work Phone: -Emergency Department Work Phone: Start: 10-14-2024 End: 10-14-2024 Emergency department patient visit AREN CARPENTER MD [facility] Start: 10-12-[address] Alan Castillo MD Work Phone: -Laboratory [facility] Start: 08-10-2024 End: 08-10-2024 Telephone encounter Alan Castillo MD Work Phone: [facility] [place] Comment on above: Patient Update Start: 06-16-2024 End: 06-17-2024 Emergency department patient visit Dr. Alan Castillo MD Work Phone: -Emergency Department Work Phone: Start: 06-01-2024 End: 06-09-2024 Evaluation and management of inpatient [facility] Start: 06-01-2024 End: 06-01-2024 Emergency department patient visit Carson Polo MD Work Phone: [facility] Comment on above: Anxiety (Primary Dx) ; Medication refill Start: 03-26-2024 End: 03-29-2024 [facility] Facility[facility][id number] Start: 03-26-2024 End: 03-27-2024 Admission to [facility] Int[facility] Start: 03-26-2024 End: 03-27-2024 ambulatory [facility] Behavior[facility] Health Intake Comment on above: Substance Abuse Start: 03-25-2024 End: 03-25-2024 Emergency department patient visit ALAN Juilssa CASTILLO Facility:[facility] Start: 03-25-2024 End: 03-25-2024 Emergency department patient visit ALAN Costa AUGUSTINE Facility:[facility] Start: 03-25-2024 End: 03-25-2024 Subsequent hospital visit by physician [facility] Non-Invasive Cardiology Comment on above: Arrived Start: 03-25-2024 End: 03-25-2024 ambulatory [facility] Start: 03-24-2024 End: 03-24-2024 Emergency department patient visit Ana Salgado MD Work Phone: [facility] ED Comment on above: Methamphetamine abus e (CMS/HCC) (HCC) (Primary Dx) Start: 03-24-2024 End: 03-24-2024 ambulatory Joseluis Strauss RN Work Phone: [employer] Comment on above: ACLili STROUD RN ( ER f/u from 03/22) Start: 03-24-2024 End: 03-24-2024 Emergency department patient visit Ramon A Radha DO Work Phone: [facility] EM[facility]Y [facility] Comment on above: Methamphetamine use (CMS/HCC) (HCC) (Primary Dx) Start: 03-24-2024 End: 03-24-2024 Emergency department patient visit Leni Russ DO Work Phone: [facility] Comment on above: Methamphetamine abus e (CMS/HCC) (HCC) (Primary Dx) Start: 03-22-2024 End: 03-22-2024 Emergency department patient visit Dr. Martin Rice DO -Emergency Department Work Phone: Start: 02-28-2024 ambulatory [facility] Vicky wimili Start: 02-19-2024 End: 02-19-2024 Letter encounter [facility] Start: 02-19-2024 End: 02-19-2024 Office outpatient new 30 minutes Erma Spivey APRN-FITNESS AND WELLNESS MANAGER Work Phone: [facility] Comment on above: Anxiety (Primary Dx) Start: 02-19-2024 End: 02-19-2024 ambulatory UNKNOWN PROVIDER Facility:[facility] Start: 12-26-2023 End: 12-26-2023 Emergency department patient visit [facility] Facility:[facility] Start: 12-26-2023 End: 12-26-2023 Emergency department patient visit ANJELICA ESPARZA DO [facility] Start: 12-26-2023 End: 12-26-2023 Well adult monitoring check done ANJELICA ESPARZA DO [facility] Start: 12-22-2023 End: 12-22-2023 ambulatory ALAN Costa [facility] Facility:[facility] Start: 12-22-2023 End: 12-22-2023 Office outpatient visit 25 minutes Gill Jasso MD Work Phone: [facility] Comment on above: Acute midline low ba ck pain without sciatica (Primary Dx); Foot pain, bilateral; Heartburn; Schizoaffective disorder, unspecified type (HCC) Start: 12-22-2023 End: 12-22-2023 Emergency department patient visit [facility] Facility:[facility] Start: 12-21-2023 End: 12-21-2023 Emergency department patient visit [facility] Facility:[facility] Start: 12-15-2023 End: 12-15-2023 [facility] Start: 12-15-2023 End: 12-15-2023 Patient encounter procedure Salena Tobar [facility] Comment on above: Population Health Na vigation Outreach ([facility] ) Start: 12-13-2023 End: 12-13-2023 ambulatory Shayla Loya RN Work Phone: [employer] Comment on above: Community Monitoring Outreach Start: 10-26-2023 ambulatory [facility] Start: 10-26-2023 Patient encounter [facility] Comment on above: Population Health Na vigation Outreach ([facility]) Start: 10-12-2023 ambulatory Joseluis Strauss RN Work Phone: [employer] Start: 10-12-2023 Follow-up encounter Joseluis mora RN Work Phone: [employer] Comment on above: ASIF STROUD RN ( ER outreach follow up) Start: 09-28-2023 End: 10-04-2023 Evaluation and management of inpatient [facility] Start: 08-25-2023 End: 08-25-2023 Emergency department patient visit AALIYAH BARROSO MD [facility] Start: 08-11-2023 End: 08-11-2023 Patient encounter procedure Ricky KAPOOR Work Phone: [facility] Comment on above: Encounter for remova l of sutures (Primary Dx) Start: 08-10-2023 End: 08-10-2023 Emergency department patient visit [facility] Work Phone: Start: 08-02-2023 End: 08-02-2023 ambulatory [facility] Work Phone: Start: 08-02-2023 End: 08-02-2023 [facility] Start: 08-01-2023 End: 08-01-2023 Emergency department patient visit [facility] Work Phone: Start: 07-31-2023 End: 07-31-2023 Emergency department patient visit [facility] Work Phone: Start: 07-30-2023 End: 07-31-2023 Emergency department patient visit [facility] Work Phone: Start: 07-21-2023 End: 07-21-2023 ambulatory [facility] Work Phone: Start: 07-21-2023 End: 07-21-2023 [facility]: Start: 07-09-2023 End: 07-09-2023 [facility] Work Phone: Start: 07-09-2023 End: 07-09-2023 Office outpatient visit 15 minutes Keo Domingo APRN.CNP Work Phone: [facility] [place] Comment on above: Gastroesophageal ref lux disease, unspecified whether esophagitis present (Primary Dx); Schizoaffective disorder, unspecified type (HCC); Amphetamine abuse (HCC); Tachycardia Start: 07-02-2023 End: 07-02-2023 [facility] Work Phone: Start: 06-24-2023 End: 06-24-2023 [facility] Work Phone: Start: 06-23-2023 End: 06-23-2023 [facility] Work Phone: Start: 06-14-2023 End: 06-15-2023 [facility] Work Phone: Start: 06-13-2023 End: 06-13-2023 [facility] Work Phone: Start: 06-12-2023 End: 06-12-2023 [facility] Work Phone: Start: 06-10-2023 End: 06-10-2023 [facility] Work Phone: Start: 06-01-2023 End: 06-01-2023 [facility] Work Phone: Start: 12-08-2022 End: 12-08-2022 Patient encounter procedure Lucila Wetzel APRN.CNP Work Phone: [facility] Comment on above: Hospital discharge f ollow-up (Primary Dx); Benzodiazepine withdrawal without complication (HCC); FRANCISCO (obstructive sleep apnea) Start: 12-07-2022 End: 12-07-2022 [facility] Work Phone: Start: 11-24-2022 End: 11-24-2022 [facility] Work Phone: Start: 11-23-2022 End: 11-23-2022 [facility] Work Phone: Start: 11-15-2022 ambulatory Aleta Iraheta RN NURSE BOTTLE LABEL INSPECTOR Comment on above: CPAP Supplies Start: 11-13-2022 Telephone encounter Verena hatfield PA-C Work Phone: [facility] Comment on above: Dr Flannery returning y our call Start: 11-13-2022 End: 11-13-2022 [facility] Work Phone: Start: 11-11-2022 End: 11-11-2022 Emergency department patient visit [facility] Work Phone: Start: 11-09-2022 End: 11-09-2022 Office outpatient visit 25 minutes Verena Evans PA-C Work Phone: [facility] Comment on above: Palpitations (Primar y Dx); Tachycardia; Polysubstance (including opioids) dependence, daily use (HCC); Overdose of undetermined intent, initial encounter Start: 09-20-2022 End: 09-20-2022 [facility] Start: 09-07-2022 Telephone encounter Neurology Provid er Neurology Comment on above: Appointment Start: 08-25-2022 End: 08-25-2022 Office outpatient visit 15 minutes Keo Domingo APRN.FITNESS AND WELLNESS MANAGER Work Phone: [facility] Comment on above: FRANCISCO (obstructive sle ep apnea) (Primary Dx); Bipolar affective disorder, remission status unspecified (HCC); Polysubstance (including opioids) dependence, daily use (HCC); Schizoaffective disorder, unspecified type (HCC) Start: 08-15-2022 End: 08-16-2022 [facility] Start: 08-15-2022 End: 08-15-2022 [facility] Start: 07-17-2022 End: 07-17-2022 Office outpatient visit 15 minutes Keo Domingo BISCUIT 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 Work Phone: [facility] Comment on above: Passage of loose sto ols (Primary Dx) Start: 05-04-2022 End: 05-04-2022 Patient encounter procedure Lucila Rashard MELTON.FITNESS AND WELLNESS MANAGER Work Phone: [facility] Comment on above: Seasonal allergies ( Primary Dx) Start: 11-05-2021 End: 11-06-2021 [facility] Start: 11-05-2021 End: 11-05-2021 [facility] Start: 07-26-2021 End: 07-26-2021 Emergency department patient visit [facility] Start: 07-07-2021 End: 07-07-2021 Patient encounter procedure Lucila Wetzel BISCUIT 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 Work Phone: [facility] Comment on above: Encounter for staple removal (Primary Dx); Abrasion of skin Start: 07-04-2021 Patient Outreach Bronwyn Mcnally RN [employer] Comment on above: Transition Of Care ( initial encounter post hosptial discharge 07/03/21) Start: 06-28-2021 Admission to establishment Kelvin Portillo MEMBER [employer]GIS[employer] Work Phone: [facility] Start: 06-28-2021 ambulatory Norm mayfield MEMBER [employer]GISL[employer] Work Phone: Behavioral Health Intake Comment on above: Behavioral Problem Start: 05-20-2021 End: 05-20-2021 Emergency department patient visit [facility] Start: 05-18-2021 End: 05-18-2021 Emergency department patient visit [facility] Start: 05-14-2021 End: 05-14-2021 Emergency department patient visit [facility] Start: 04-30-2021 End: 04-30-2021 Emergency department patient visit [facility] Start: 04-05-2021 End: 04-05-2021 Emergency department patient visit [facility] DO Yamila Medina DO S Procedures Date Procedure Procedure Detail Performing Clinician Start: 11-15-2024 Methadone measurement, urine Dr. Alan Castillo MD Work Phone: Start: 11-15-[address] Alan Castillo MD Work Phone: Comment on above: Test Ordered: [id number] Dextromethorphan + Mtb, Ur QtDextromethorphan 835.6 ng/mL MX Reference Range: NEGATIVEDextrorphan 978.8 ng/mL MX Reference Range: NEGATIVENote: Dextrorphan (dextromethorphan metabolite) is indistinguishable from levorphanol in this analysis.This test was developed and its performance characteristicsdetermined by [employer]. It has not been cleared or approvedby the Food and Drug Administration.Performed at: [facility] [place] [address] [id number] Director: Juana Barrett, Phone: [phone] at: [address] [id number] Director: Josep Thompson PhD, Phone: [phone] Start: 11-02-2024 Methadone measurement, urine Dr. Alan Castillo MD Work Phone: Start: 11-02-[address] Alan Castillo MD Work Phone: Comment on above: Test Ordered: [id number] Dextromethorphan + Mtb, Ur QtDextromethorphan Comment ng/mL MX Reference Range: NEGATIVE>4000.0Dextrorphan Comment ng/mL MX Reference Range: NEGATIVE>4000.0Note: Dextrorphan (dextromethorphan metabolite) is indistinguishable from levorphanol in this analysis.This test was developed and its performance characteristicsdetermined by [employer]. It has not been cleared or approvedby the Food and Drug Administration.Performed at: [facility] [place] [address] [id number] Director: Juana Barrett, Phone: [phone] at: [address] [id number] Director: Josep Thompson PhD, Phone: [phone] Start: 10-17-2024 Methadone measurement, urine Dr. Alan Castillo MD Work Phone: Start: 10-17-2024 X-ray of chest, PA and lateral views Dr. Alan Castillo MD Work Phone: Start: 10-17-[address] Alan Castillo MD Work Phone: Start: 10-12-2024 Methadone measurement, urine Dr. Alan Castillo MD Work Phone: Start: 10-12-[address] Alan Castillo MD Work Phone: Comment on above: Test Ordered: [id number] Dextromethorphan + Mtb, Ur QtDextromethorphan Negative ng/mL MX Reference Range: NEGATIVEDextrorphan Negative ng/mL MX Reference Range: NEGATIVENote: Dextrorphan (dextromethorphan metabolite) is indistinguishable from levorphanol in this analysis.This test was developed and its performance characteristicsdetermined by [employer]. It has not been cleared or approvedby the Food and Drug Administration.Performed at: [facility] [address] [id number] Director: Juana Golden [facility], Phone: [phone] at: [address] [id number] Director: Josep Thompson PhD, Phone: [phone] Start: 03-25-2024 Ecg routine ecg w/least 12 lds trcg only w/o i&r Ana Salgado MD Work Phone: Start: 03-24-2024 Urinalysis complete panel - Urine Ramon A Gombash DO Work Phone: Start: 03-24-2024 Urnls dip stick/tablet rgnt auto w/o microscopy Ramon A Gombash DO Work Phone: Start: 03-24-2024 Ecg routine ecg w/least 12 lds trcg only w/o i&r Ramon A Gombash DO Work Phone: Start: 03-24-2024 SARS-CoV-2 (COVID-19) Ag [Presence] in Respiratory specimen by Rapid immunoassay Ramon Garcia DO Work Phone: Start: 03-24-2024 Basic metabolic panel calcium total Ramon Garcia DO Work Phone: Start: 03-24-2024 End: 03-24-2024 Drug test def 1-7 classes Ramon miguel DO Work Phone: Start: 03-24-2024 Comprehensive metabolic panel Leni Mud rakola DO Work Phone: Start: 12-22-2023 Urnls dip stick/tablet rgnt auto w/o microscopy Gill Jasso MD Work Phone: Start: 07-31-2023 CT angiography of lower limb Start: 06-14-2023 Plain chest X-ray Start: 06-10-2023 Plain chest X-ray Start: 11-24-2022 Viral antigen assay Start: 11-13-2022 SARS-CoV-2 & FLU Antigen (Rapid) Start: 11-11-2022 Viral antigen assay Start: 09-20-2022 Plain chest X-ray Start: 08-15-2022 Viral antigen assay Start: 06-29-2021 Lipid 1996 panel - Serum or Plasma Keo Domingo APRN.CNP Work Phone: Start: 06-28-2021 Antibody screen Comment on above: Order Comment: Specimen Type: BLOOD SPEC IMENOrdering Facility: [facility] Address: [address] [place] [address] Performed By: #### T GABY ####[facility] [id number] [place] [address] [place] Start: 05-16-2018 Adult depression screening assessment Norm ARIASW Work Phone: Viral antigen assay Plan of Treatment Date Care Activity Detail Author Start: 02-18-2060 RSV Immunization for Adults (1 - 1-dose 75+ series) RSV Immunization for Adults (1 - 1-dose 75+ series) [facility] Start: 2035 Shingles (RZV) Vacci ne (1 of 2) Shingles (RZV) Vaccine (1 of 2) [facility] Start: 2035 Zoster Vaccines (1 of 2) Zoste r Vaccines (1 of 2) [facility] Start: 07-30-2033 DTaP/Tdap/Td Vaccine s (4 - Td or Tdap) DTaP/Tdap/Td Vaccines (4 - Td or Tdap) [facility] Start: 07-30-2033 Urine microalbumin profile DTaP,Tdap,Td Vaccine (4 - Td or Tdap) [facility] Start: 06-29-2031 Urine microalbumin profile [facility] Start: 06-29-2026 Lipid panel [facility] Start: 06-29-2026 LIPID SCREEN LIPID SCREEN [facility] Start: 10-19-2025 Annual PCP Team Rn Hospice sofía Disease Visit Annual PCP Team Chronic Disease Visit [facility] Start: 02-19-2025 End: 02-19-2025 Patient encounter procedure 02/19/2025 12:40 PM EST Office Visit Family [facility]alba [facility] [address] [place] [address] Keo Domingo, GERONIMO.FITNESS AND WELLNESS MANAGER [address] [place] [address] 4 mo follow up Family Rosalba Leija Comment on above: 4 mo follow up Start: 12-04-2024 Influenza vaccination C [facility] Start: 11-02-2024 Procedure [facility] Start: 10-19-2024 End: 11-18-2025 XR Thoracic spine AP and Lateral and Swimmers XR THORACIC GENERAL 3V AP/LAT/SWIMMERS Radiology STAT DDD (degenerative disc disease), thoracic Expected: 10/19/2024, Expires: 11/18/2025 [facility] Work Phone: Comment on above: Expected: 10/19/2024 , Expires: 11/18/2025 Start: 10-17-2024 [facility] Start: 10-17-2024 Consultation [facility] Start: 10-17-2024 [facility] Start: 10-12-2024 Procedure [facility] Start: 07-08-2024 Annual PCP Team Rn Hospice sofía Disease Visit Annual PCP Team Chronic Disease Visit [facility] Start: 06-17-2024 [facility] Start: 06-16-2024 [facility] Start: 06-16-2024 Suicide precautions [facility] Start: 04-05-2024 Medicare Advantage Annual Wellness Visit Medicare Advantage Annual Wellness Visit [facility] Start: 03-22-2024 [facility] Start: 12-24-2023 End: 12-24-2023 Patient encounter procedure 12/24/2023 1:40 PM EDT Office Visit [facility] [place] [address] [place] [address] Lucila Wetzel APRN.FITNESS AND WELLNESS MANAGER [address] [facility] [place] [address] ec follow up [facility] [place] Comment on above: ec follow up Start: 12-09-2023 ANNUAL PCP TEAM FIELD BROOMER SOFÍA DISEASE VISIT ANNUAL PCP TEAM CHRONIC DISEASE VISIT [facility] Start: 12-05-2023 COVID-19 Vaccine ( season) COVID-19 Vaccine ( season) [facility] Start: 12-05-2023 Covid-19 Vaccine ( season) Covid-19 Vaccine ( season) [facility] Start: 12-05-2023 Covid-19 Vaccine ( season) Covid-19 Vaccine ( season) [facility] Start: 12-05-2023 Influenza vaccination C [facility] Start: 11-10-2023 ANNUAL PCP TEAM FIELD BROOMER SOFÍA DISEASE VISIT ANNUAL PCP TEAM CHRONIC DISEASE VISIT [facility] Start: 08-26-2023 ANNUAL PCP TEAM FIELD BROOMER SOFÍA DISEASE VISIT ANNUAL PCP TEAM CHRONIC DISEASE VISIT [facility] Start: 07-30-2023 Repair complex scalp/arm/leg 2.6-7.5 cm CMPLX RPR S/A/L 2.6-7.5 CM [facility] Start: 07-30-2023 Repair complex scalp/arm/leg ea addl 5 cm/< CMPLX RPR S/A/L ADDL 5 CM/> [facility] Start: 07-18-2023 ANNUAL PCP TEAM FIELD BROOMER SOFÍA DISEASE VISIT ANNUAL PCP TEAM CHRONIC DISEASE VISIT [facility] Start: 07-09-2023 [facility] Start: 07-02-2023 [facility] Start: 06-24-2023 [facility] Start: 06-23-2023 [facility] Start: 06-15-2023 [facility] Start: 06-14-2023 [facility] Start: 06-12-2023 [facility] Start: 06-12-2023 Suicide precautions [facility] Start: 06-10-2023 End: 06-10-2023 [facility] Start: 06-10-2023 [facility] Start: 06-01-2023 [facility] Start: 05-04-2023 ANNUAL PCP TEAM FIELD BROOMER SOFÍA DISEASE VISIT ANNUAL PCP TEAM CHRONIC DISEASE VISIT [facility] Start: 04-05-2023 Behavioral Health Screening Behavioral Health Screening [facility] Start: 04-05-2023 Medicare Advantage Annual Wellness Visit Medicare Advantage Annual Wellness Visit [facility] Start: 04-05-2023 Welcome to Medicare Visit (G0402) Welcome to Medicare Visit (G0402) [facility] Start: 12-04-2022 Covid-19 Vaccine ( season) Covid-19 Vaccine () [facility] Start: 12-04-2022 Influenza vaccination C [facility] Start: 11-24-2022 Referral to service [facility] Start: 11-24-2022 End: 11-24-2022 Suicide precautions [facility] Start: 11-13-2022 Suicide precautions [facility] Start: 09-20-2022 [facility] Start: 07-07-2022 ANNUAL PCP TEAM FIELD BROOMER SOFÍA DISEASE VISIT ANNUAL PCP TEAM CHRONIC DISEASE VISIT [facility] Start: 05-26-2022 ANNUAL PCP TEAM FIELD BROOMER SOFÍA DISEASE VISIT ANNUAL PCP TEAM CHRONIC DISEASE VISIT [facility] Start: 04-05-2022 DEPRESSION ASSESSMENT DEPRESSION ASS ESSMENT [facility] Start: 12-04-2021 Influenza vaccination C [facility] Start: 11-05-2021 Referral to service [facility] Work Phone: Start: 11-05-2021 End: 11-05-2021 Suicide precautions [facility] Work Phone: Start: 10-02-2021 Influenza vaccination INFLUENZA (#1) [facility] Comment on above: Postponed from 12/04 (Declined at this time) Start: 06-06-2021 COVID-19 VACCINE (3 - Booster for Pfizer series) COVID-19 VACCINE (3 - Booster for Pfizer series) [facility] Start: 03-03-2021 COVID-19 VACCINE (3 - Booster for Pfizer series) COVID-19 VACCINE (3 - Booster for Pfizer series) [facility] Start: 03-03-2021 COVID-19 VACCINE (3 - Pfizer series) COVID-19 VACCINE (3 - Pfizer series) [facility] Start: 02-18-2020 LIPID SCREEN LIPID SCREEN [facility] Start: 05-16-2019 Adult depression screening assessment DEPRESSION SCREENING [facility] Start: 02-18-2012 HPV Vaccine (1 - 3-d ose SCDM series) HPV Vaccine (1 - 3-dose SCDM series) [facility] Start: 02-18-2012 HPV Vaccine (optiona l start 27-45 years) HPV Vaccine (optional start 27-45 years) [facility] Start: 02-18-2004 Hepatitis A (HAV) Vaccine (optional start 19+ years) Hepatitis A (HAV) Vaccine (optional start 19+ years) [facility] Start: 02-18-2004 Hepatitis B vaccination Hepati tis B (HBV) Vaccine (1 of 3 - 19+ 3-dose series) [facility] Start: 02-18-2004 Hepatitis B Vaccine (1 of 3 - 19+ 3-dose series) Hepatitis B Vaccine (1 of 3 - 19+ 3-dose series) [facility] Start: 02-18-2004 Hepatitis B Vaccines (1 of 3 - 19+ 3-dose series) Hepatitis B Vaccines (1 of 3 - 19+ 3-dose series) [facility] Start: 02-18-2004 Pneumococcal vaccination Pneum ococcal Vaccine (1 of 2 - PCV) [facility] Start: 02-18-2004 Pneumococcal Vaccine : Pediatrics (0 to 5 Years) and At-Risk Patients (6 to 49 Years) (1 of 2 - PCV) Pneumococcal Vaccine: Pediatrics (0 to 5 Years) and At-Risk Patients (6 to 49 Years) (1 of 2 - PCV) [facility] Start: 2003 Anxiety Screening Anxiety Screening [facility] Start: 2003 Depression Screening Depression Scre ening [facility] Start: 2003 HEPATITIS C SCREENING HEPATITIS C SC REENING [facility] Start: 2003 [facility]atitis C [facility] Start: 2003 HIV SCREENING HIV SCREENING [facility] Start: 2003 HIV screening HIV Screening [facility] Start: 2003 SPIROMETRY SPIROMETRY [facility] Start: 2003 Tdap Booster Tdap Booster [facility] Start: 02-18-2000 HIV screening HIV Test [facility] Start: 1998 Varicella vaccination Varicell a Vaccines (1 of 2 - 13+ 2-dose series) [facility] Start: 1997 Depression Screening Depression Scre ening [facility] Start: 1991 PNEUMOCOCCAL (1 - PCV) PNEUMOCOCCAL (1 - PCV) [facility] Start: 1991 Pneumococcal vaccination Pneum ococcal Vaccine (1 of 2 - PCV) [facility] Start: 1986 MMR Vaccines (1 of 1 - Standard series) MMR Vaccines (1 of 1 - Standard series) [facility] Start: 1985 HEPATITIS B (1 of 3 - 3-dose series) HEPATITIS B (1 of 3 - 3-dose series) [facility] Start: 1985 HIV screening HIV Screening [facility] Start: 1985 Lipid panel Lipid Panel [facility] ECG 12 lead ECG 12 lead CV E CG STAT 03/24/2024 6:58 AM EST [facility] Work Phone: ECG 12 lead ECG 12 lead CV E CG STAT 03/25/2024 6:29 AM EST [facility] Work Phone: Erythrocyte mean corpuscular volume determination [facility] Hematocrit [Volume Fraction] of Blood [facility] Hemoglobin [Mass/vol ume] in Blood [facility] Leukocytes [#/volume ] in Blood [facility] Mean corpuscular hemoglobin concentration determination [facility] Mean corpuscular hemoglobin determination [facility] Neutrophil count [facility] Neutrophil percent differential count [facility] Patient Education [facility] Work Phone: Patient referral [facility] Work Phone: Platelets [#/volume] in Blood [facility] Red blood cell count [facility] Red cell distributio n width determination [facility] XR Thoracic spine AP and Lateral and Swimmers XR THORACIC GENERAL 3V AP/LAT/SWIMMERS Radiology Routine Acute midline thoracic back pain 10/20/2024 9:54 AM EDT [facility] Work Phone: [facility] Immunizations Immunization Date Immunization Notes Care Provider Fa [facility] 07-31-2023 tetanus toxoid, redu tyrell diphtheria toxoid, and acellular pertussis vaccine, adsorbed [facility] 06-28-2021 tetanus toxoid, redu tyrell diphtheria toxoid, and acellular pertussis vaccine, adsorbed Norm Portillo [employer] Work Phone: [facility] 01-06-2021 COVID-19 vaccine, ag e 12+ yr ([employer] - PURPLE TOP) Nomr Portillo [employer] Work Phone: [facility] 07-23-2015 tetanus toxoid, redu tyrell diphtheria toxoid, and acellular pertussis vaccine, adsorbed [facility] Payers Date Payer Category Payer Private Health Insurance [id number] 2023 Self-pay [id number] 2023 Blue Cross Blue Shield ANTHEM - MEDICARE [id number] 2023 Medicare HMO ANTHJOLENE MONET Member Subscriber Plan / Payer (Effective 2023-Present) Name: Elkin Vaughn Relation to Subscriber: Self Name: Elkin Vaughn Payer ID: [id number] (NAIC) Group ID: [id number] Type: Medicare O Address: [address] [place] [id number] 2023 Unknown [id number] 2022 Medicare (Managed Care) LIU LEA HMO [id number] 2022 Unknown [id number] 2022 Medicare [id number] 2022 Medicare [id number] 2018 Medicaid [facility] MEDICAID MYC ARE [facility] MEDICAID [id number] 2018-Present [phone] [address] [place] [address] Medicaid [id number] 2018 Medicaid [id number] 2015 Unknown [id number] 2013 Medicare MEDICARE MEDICAR E A AND B [id number] 2013-Present [phone] [address] [address] [place] [address] Medicare [id number] 2013 Medicare MEDICARE MEDICAR E A AND B [id number] 2013-Present [phone] [place] [address] Medicare [id number] 1985 Unknown [id number] 1985 Unknown [id number] 204 1985 Unknown [id number]. 732 1985 Unknown [id number]. 1249 1985 Unknown [id number]. 627 1985 Unknown [id number]. 627 Unknown [id number]. 462 Unknown [id number]. 462 Unknown [id number] 462 Unknown [id number]. 462 Unknown [id number]. 462 Unknown [id number]. 462 Unknown [id number]. 462 Unknown [id number]. 462 Unknown [id number] 462 Social History Date Type Detail Facility Start: 08-27-2011 End: 12-22-2023 Tobacco smoking status NHIS Smokes tobacco daily [facility] Start: 08-27-2011 End: 12-24-2023 Cigarettes smoked current (pack per day) - Reported 0.2 [facility] Start: 08-27-2011 End: 12-22-2023 Tobacco use and exposure Smokeless tobacco non-user [facility] Start: 05-26-2021 End: 12-22-2023 Alcohol intake Current non-drinker of alcohol (finding) [facility] Start: 1985 Sex Assigned At Not on file C [facility] Start: 06-18-2021 End: 07-07-2021 Exposure to SARS-CoV-2 (event) Not sure [facility] Start: 11-09-2022 End: 12-24-2023 S [facility] Start: 07-26-2021 End: 08-10-2023 Tobacco smoking status FLIS Unknown if ever smoked [facility] Start: 10-08-2020 Marijuana;none recent, past month [facility] Start: 04-24-2020 Spouse/ Signif icant Other [facility] Start: 10-08-2020 Cigarettes [facility] Start: 1985 Sex Assigned At Male W [facility] History of tobacco use Cigarette Smoker C [facility] Start: 03-06-2012 Adult Depression Screening Assessment 0 [facility] Tobacco smoking status [facility] Tobacco smoking stat us FLIS Never smoked tobacco [facility] Start: 02-07-2012 End: 08-25-2023 Sex Male (finding) [facility] Start: 03-24-2024 End: 06-01-2024 Alcoholic beverage intake Ex-drinker (finding) [facility] How often to you hav e a drink containing alcohol? Never [facility] Functional Status Date Assessment Result Facility 03-28-2024 Are you deaf, or do you have serious difficulty hearing No 03/28/2024 3:08 PM Mayte Morrison RN No [facility] 03-28-2024 Are you blind, or do you have serious difficulty seeing, even when wearing glasses No 03/28/2024 3:08 PM Mayte Morrison RN No [facility] 03-28-2024 Do you have serious difficulty walking or climbing stairs No 03/28/2024 3:08 PM Mayte Morrison RN No [facility] 03-28-2024 Do you have difficul ty dressing or bathing No 03/28/2024 3:08 PM Mayte Morrison RN No [facility] 03-28-2024 Because of a physica l, mental, or emotional condition, do you have difficulty doing errands alone such as visiting a physician's office or shopping Yes 03/28/2024 3:08 PM Mayte Morrison RN Yes [facility] 12-26-2023 Functional Status Standard Safet y ID band on, Call device within reach, Bed in low position, Wheels locked, Upper/Half-Length side-rails up, Bedside Cart Locked, Safety level maintained [facility] 08-25-2023 Functional Status Standard Safet y ID band on, Call device within reach, Bed in low position, Wheels locked, Safety level maintained [facility] Mental Status Date Assessment Result Facility 10-17-2024 Cognitive function Level Of Cons ciousness Awake;Alert;Appropriate;Fol lows Commands [facility] Work Phone: 03-28-2024 Because of a physica l, mental, or emotional condition, do you have serious difficulty concentrating, remembering, or making decisions Yes 03/28/2024 3:08 PM Mayte Morrison, RN Yes [facility] 12-26-2023 Mental Status Orientation Oriented x 4 [facility] 08-25-2023 Mental Status Orientation Oriented x 4 [facility] 08-01-2023 Cognitive function Level Of Cons ciousness Awake;Alert;Appropriate;Fol lows Commands [facility] Work Phone: 06-10-2023 Cognitive function Level Of Cons ciousness Awake;Alert;Appropriate;Fol lows Commands [facility] Work Phone: 12-07-2022 Cognitive function Level Of Cons ciousness Awake;Alert;Appropriate [facility] Work Phone: Clinical Notes 06-28-2021 to 12-19-2024 Telephone Encounter - Leandro Lugo MA - 12/19/2024 10:14 AM EDTTelephone Encounter - Leandro Lugo MA - 12/19/2024 10:14 AM EDTCGary gimenez RT(R) - 10/20/2024 9:50 AM EDT Note Date & Type Note Facility 12-19-2024 Telephone encounter Note [facility] was notified and is taking medication out of pack and aware cancel on med list Leandro Lugo MA [facility] 12-19-2024 Miscellaneous Notes [facility] was notified and is taking medication out of pack and aware cancel on med list Leandro Lugo MA Cancelled [facility] calls to let provider know that patient is enrolled in an IOP for Substance Abuse and is currently not able to take the methocarbamol as prescribed by provider. Salvador asking for provider to discontinue medication and let [facility] know to cancel the prescription. He has already requested it not be packaged in the delivery for Friday December 20, 2024. Please review and advise, Peg Santos RN documented in this encounter [facility] 12-19-2024 Telephone encounter Note Cancelled [facility] 12-19-2024 Telephone encounter Note [facility] calls to let provider know that patient is enrolled in an IOP for Substance Abuse and is currently not able to take the methocarbamol as prescribed by provider. Salvador asking for provider to discontinue medication and let [facility] know to cancel the prescription. He has already requested it not be packaged in the delivery for Friday December 20, 2024. Please review and advise, Peg Santos RN [facility] 12-12-2024 Telephone encounter Note Monica notified that prescription was sent to pharmacy. Monica voiced understanding. Gisele Flannery RN [facility] 12-12-2024 Miscellaneous Notes Monica notified that prescription was sent to pharmacy. Monica voiced understanding. Gisele Flannery RN Done [facility] calls and states that patient has been taking methocarbamol at 8 am and 8 pm. Monica asking if prescription can be changed from TID PRN to scheduled BID 8 am and 8 pm? Please review and advise, Gisele Flannery RN documented in this encounter [facility] 12-12-2024 Telephone encounter Note Done [facility] 12-12-2024 Telephone encounter Note Monica from [facility] calls and states that patient has been taking methocarbamol at 8 am and 8 pm. Monica asking if prescription can be changed from TID PRN to scheduled BID 8 am and 8 pm? Please review and advise, Gisele Flannery RN [facility] 12-07-2024 Telephone encounter Note No faxes received, however this was already taken care of. Shayla Arellano MA [facility] 12-07-2024 Miscellaneous Notes No faxes received, however this was already taken care of. Shayla Arellano MA Spoke with Jennifer. She did states that she already received this form from [facility] as this is regarding psych. She will send to our office just to have another form on file. Will watch for results. Shayla Arellano MA No fax received at this time. Shayla Arellano MA December 05, 2024 5:14 PM Jennifer Gutierrez is calling to see if office received a fax from them in regards to pt. Looking for dx for SRS program. Call Jennifer at number given if fax was not received. Leia Mccann LPN documented in this encounter [facility] 12-07-2024 Telephone encounter Note Spoke with Jennifer. She did states that she already received this form from [facility] as this is regarding psych. She will send to our office just to have another form on file. Will watch for results. Shayla Arellano MA [facility] 12-05-2024 Telephone encounter Note No fax received at this time. Shayla Arellano MA December 05, 2024 5:14 PM [facility] 12-05-2024 Telephone encounter Note Jennifer Gutierrez is calling to see if office received a fax from them in regards to pt. Looking for dx for SRS program. Call Jennifer at number given if fax was not received. Leia Mccann LPN [facility] 11-06-2024 Telephone encounter Note Removed from med list. [facility] 11-06-2024 Miscellaneous Notes Removed from med list. Salvador [facility] calls to report pt states provider Funmi Hummel CNP, prescribed lidocaine 5% patches. Salvador reports pt is no longer using those and is asking for [facility] to be notified to take that off pt's med list. Salvador reports when a pt lets them know they are not taking/using a med they have to have it discontinued at the pharmacy so med list is current at [facility]. Leia Mccann LPN documented in this encounter [facility] 11-06-2024 Telephone encounter Note [facility] calls to report pt states provider Funmi Hummel CNP, prescribed lidocaine 5% patches. Salvador reports pt is no longer using those and is asking for [facility] to be notified to take that off pt's med list. Salvador reports when a pt lets them know they are not taking/using a med they have to have it discontinued at the pharmacy so med list is current at [facility]. Leia Mccann LPN [facility] 10-26-2024 Telephone encounter Note Called facility let them know of information provided. They voice understanding. [facility] 10-26-2024 Miscellaneous Notes Called facility let them know of information provided. They voice understanding. ----- Message from Funmi Hummel sent at 10/26/2024 9:02 AM EDT ----- No lower thoracic compression. Mild degenerative changes. Patient is in a facility right now the phone number is [phone]. Please let them know. No lower thoracic compression. Mild degenerative changes. Patient is in a facility right now the phone number is [phone]. Please let them know. documented in this encounter [facility] 10-26-2024 Telephone encounter Note ----- Message from Funmi Hummel sent at 10/26/2024 9:02 AM EDT ----- No lower thoracic compression. Mild degenerative changes. Patient is in a facility right now the phone number is [phone]. Please let them know. [facility] 10-26-2024 Progress note Formatting of t his note might be different from the original. No lower thoracic compression. Mild degenerative changes. Patient is in a facility right now the phone number is [phone]. Please let them know. [facility] 10-26-2024 Note IMPRESSION: Suboptimal evaluation on lateral views. No visualized acute osseous abnormality. Mild degenerative changes. 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 [facility] 10-20-2024 Miscellaneous Notes With pt's insurance denial it notes this is only covered for shingle pain dx. Patient is in a rehab and not permitted to take the gabapentin that he was previously on. He is having pain in a very precise area of T9-T10. We are limiting substances and trying to control his pain. X-ray is pending for actual diagnosis. Pain is discogenic in nature. This was denied. Date: 10/19/2024 Enrollee Name: ELKIN VAUGHN Member Number: [id number] Coverage of your drug was denied We denied coverage under Medicare Part D for the following drug(s) you or your prescribing provider asked for: LIDOCAINE 5% PATCH Why was coverage for this drug denied? We denied coverage for this drug because in order for a drug to be considered for coverage under Medicare Part D, it must be used for a medically-accepted indication (medical conditions that the drug is used for). Medically-accepted indications are supported by the Food and Drug Administration (FDA) labeling of the drug and/or medical references approved by Medicare Part D. We must deny this request because the information provided by your prescriber (other intervertebral disc degeneration, thoracic region) did not meet the requirement(s) of a medically accepted indication. We may consider approval of this drug when you have a certain diagnosis (such as, pain that occurs after having shingles). We based this decision on Chapter 6 Section 10.6 of the Medicare Prescription Drug Benefit Manual and your health plan s prior authorization criteria named Lidocaine Agents Patch. Electronic PA rec'd and completed for lidoderm patches. documented in this encounter [facility] 10-20-2024 History of Presen t illness Narrative Radiology Service Progress Note PATIENT NAME: Elkin Vaughn DATE OF SERVICE: October 20, 2024 TIME: 9:49 AM PATIENT IDENTITY VERIFICATION COMPLETED USING TWO (2) IDENTIFIERS: Name and Date of confirmed by patient verbally. FALL SCREENING: Has the patient had 2 falls in the last year or 1 fall with injury or currently using an Ambulatory Assistive Device (Walker, Cane, Wheelchair, Crutches, etc.)? No PATIENT GENDER DATA: Assigned male at PATIENT RELEVANT IMPLANT DATA REVIEWED: Not Applicable PATIENT PRESENTS WITH AN IMPLANTABLE OR ATTACHED EDUCATION SALES CONSULTANT: No RADIOLOGY DEPARTMENT: General X-ray: Exam(s) Completed: Spine X-Ray(s): Thoracic PERIPHERAL IV DATA: Not applicable SIGNED BY: RT Nohemy(Sharmila) October 20, 2024 9:49 AM documented in this encounter [facility] 10-20-2024 Note HNO ID: [id number] Author: GARY ESPINO RT(Sharmila) Service: ? Author Type: Technologist Type: Progress Notes Filed: 10/20/2024 09:55 Note Text: Radiology Service Progress Note PATIENT NAME: Elkin Vaughn DATE OF SERVICE: October 20, 2024 TIME: 9:49 AM PATIENT IDENTITY VERIFICATION COMPLETED USING TWO (2) IDENTIFIERS: Name and Date of confirmed by patient verbally. FALL SCREENING: Has the patient had 2 falls in the last year or 1 fall with injury or currently using an Ambulatory Assistive Device (Walker, Cane, Wheelchair, Crutches, etc.)? No PATIENT GENDER DATA: Assigned male at PATIENT RELEVANT IMPLANT DATA REVIEWED: Not Applicable PATIENT PRESENTS WITH AN IMPLANTABLE OR ATTACHED EDUCATION SALES CONSULTANT: No RADIOLOGY DEPARTMENT: General X-ray: Exam(s) Completed: Spine X-Ray(s): Thoracic PERIPHERAL IV DATA: Not applicable SIGNED BY: RT Nohemy(R) October 20, 2024 9:49 AM [facility] 10-20-2024 Telephone encounter Note Patient is in a rehab and not permitted to take the gabapentin that he was previously on. He is having pain in a very precise area of T9-T10. We are limiting substances and trying to control his pain. X-ray is pending for actual diagnosis. Pain is discogenic in nature. [facility] 10-19-2024 Telephone encounter Note This was denied. Date: 10/19/2024 Enrollee Name: ELKIN VAUGHN Member Number: [id number] Coverage of your drug was denied We denied coverage under Medicare Part D for the following drug(s) you or your prescribing provider asked for: LIDOCAINE 5% PATCH Why was coverage for this drug denied? We denied coverage for this drug because in order for a drug to be considered for coverage under Medicare Part D, it must be used for a medically-accepted indication (medical conditions that the drug is used for). Medically-accepted indications are supported by the Food and Drug Administration (FDA) labeling of the drug and/or medical references approved by Medicare Part D. We must deny this request because the information provided by your prescriber (other intervertebral disc degeneration, thoracic region) did not meet the requirement(s) of a medically accepted indication. We may consider approval of this drug when you have a certain diagnosis (such as, pain that occurs after having shingles). We based this decision on Chapter 6 Section 10.6 of the Medicare Prescription Drug Benefit Manual and your health plan s prior authorization criteria named Lidocaine Agents Patch. [facility] 10-19-2024 Note Addended by: Nany CASPER on: 10/19/2024 02:45 PM Modules accepted: Orders [facility] 10-19-2024 Miscellaneous Notes Addended by: RICHARD CASPER on: 10/19/2024 02:45 PM Modules accepted: Orders documented in this encounter [facility] 10-19-2024 Telephone encounter Note Electronic PA rec'd and completed for lidoderm patches. [facility] 10-19-2024 Instructions Funmi Hummel APRN.FLORENTIN - 10/19/2024 2:32 PM EDT - A prescription for a lidocaine patch has been sent to your pharmacy. Apply the patch to the tender spot on your mid-lower back each time, having someone help position it if needed. - A prescription for methocarbamol (a mild muscle relaxer) has been sent to your pharmacy. Take it exactly as directed to help reduce muscle spasms. - Arrange to have an x-ray of your back as ordered to check for any old compression fracture or other issues. - We will call you at your home phone ([phone]) with the x-ray results once they are available. documented in this encounter [facility] 10-19-2024 Note HNO ID: [id number] Author: FUNMI HUMMEL APRN.FLORENTIN Service: ? Author Type: Nurse Practitioner Type: Progress Notes Filed: 10/19/2024 14:32 Note Text: This is a 39 year old male who presents today with: Patient presents with: Back Pain HISTORY OF PRESENT ILLNESS: Elkin Vuaghn is a 39 year old male. Patient presents with: Back Pain Elkin Vaughn is a 39-year-old male presenting for evaluation of chronic back pain. Chronic Back Pain: - Chronic back pain, recently exacerbated. - Describes pain as throbbing and terrible ache. - Pain localized to the middle-lower back, slightly above the waistline. - Current pain level rated at 6/10; previously 8/10. - Aggravated by walking and lying down. - Denies radiation of pain to legs or wrapping around the torso. - Denies known trauma or injury; recalls using a waterbed for a long time, which may have contributed to Elkin's back pain. - Denies SOB, cough, wheezing, fever, chills, bowel or bladder issues, and constipation. - Denies IV drug use. - Previously on gabapentin, which may have helped with pain management. PAST MEDICAL HISTORY: PAST MEDICAL HISTORY Diagnosis Date Asthma EXERCISE INDUCED GERD (gastroesophageal reflux disease) Nightmares FRANCISCO (obstructive sleep apnea) Psychiatric disorder BIPOLAR; SCHIZOAFFECTIVE D/O PAST SURGICAL HISTORY Procedure Laterality Date PAST SURGICAL HISTORY OF wisdom teeth ALLERGIES Patient has no known allergies. MEDICATIONS Current Outpatient Medications Medication Sig desvenlafaxine ER (PRISTIQ) 100 mg 24 hr tablet Take 100 mg by mouth once daily. desvenlafaxine ER (PRISTIQ) 50 mg 24 hr tablet Take 50 mg by mouth once daily. busPIRone (BUSPAR) 15 mg tablet Take 15 mg by mouth three times a day. benztropine (COGENTIN) 0.5 mg tablet Take 0.5 mg by mouth once daily. lurasidone (LATUDA) 60 mg tablet Take 60 mg by mouth daily with food. guanFACINE (TENEX) 2 mg tablet Take 2 mg by mouth once daily. prazosin (MINIPRESS) 1 mg cap Take 3 mg by mouth daily at bedtime. clonazePAM (KLONOPIN) 0.5 mg tablet gabapentin (NEURONTIN) 600 mg tablet Take 1 tablet by mouth three times a day. omeprazole (PRILOSEC) 20 mg capsule Take 1 capsule by mouth two times a day. (Patient taking differently: Take 20 mg by mouth once daily.) famotidine (PEPCID) 20 mg tablet Take 1 tablet by mouth two times a day as needed (acid reflux). Mirtazapine 45 mg disintegrating tablet prazosin (MINIPRESS) 2 mg cap Take 2 mg by mouth once daily. No current facility-administered medications for this visit. FAMILY HISTORY Problem Relation Age of Onset No Known Problems Mother Cancer Father skin Social History Tobacco Use Smoking status: Every Day Current packs/day: 0.20 Types: Cigarettes Smokeless tobacco: Never Vaping Use Vaping status: current everyday user Substance Use Topics Alcohol use: No Drug use: Yes Types: Marijuana Comment: daily REVIEW OF SYSTEMS Constitutional: (-) fever, (-) chills Respiratory: (-) shortness of breath, (-) cough, (-) wheezing Gastrointestinal: (-) bowel dysfunction, (-) constipation Genitourinary: (-) urinary incontinence Musculoskeletal: (+) back pain, (-) radiating leg pain EXAM: BP 120/76 Pulse 83 Wt 99.8 kg (220 lb) SpO2 98% BMI 28.25 kg/m? PHYSICAL EXAM: GENERAL: NAD, alert and oriented SKIN: unremarkable, no rash or skin lesions. HEAD: normocephalic LUNGS: Clear to auscultation bilaterally, no wheezes/rhonchi/rales. HEART: Regular rate and rhythm, no murmurs. No ectopy. EXTREMITIES: Normal, No deformities, No skin discoloration, No edema. BACK: Tenderness noted in the mid-lower back region at T9 or T10. No radiation of pain. No loss of bowel or bladder function. NEURO: Awake, alert and oriented x3, cranial nerves II-XII grossly intact, normal gait, no involuntary motions LABS: Labs: - (No date) - WBC: 7.5 - Hemoglobin: 14.4 - Hematocrit: 40.6 - Platelets: 272 - Differential: Normal - Sodium: 139 - Potassium: 3.5 - BUN: 13 - Creatinine: 1.12 - Glucose: 98 - GFR: 86 - AST: 40 (minimally elevated) - CPK: 779 - Troponin: 12 - TSH: 1.16 Imaging: - (No date) Chest X-ray: Negative ASSESSMENT/PLAN: 1. Gastroesophageal reflux disease, unspecified whether esophagitis present (K21.9) - Stable 2. 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 Pain is described as throbbing and located in the mid-lower back, without radiation to the legs or around the torso. No associated shortness of breath, cough, wheeze, bowel or bladder dysfunction, or fever and chills. - Physical examination reveals tenderness in the mid-thoracic region, suggestive of a possible old compression fracture. - Recent cessation of gabapentin, which may have been providing analgesic benefit. - Ordered thoracic spine X-ray to eda (more content not included)... [facility] 10-19-2024 History of Presen t illness Narrative This is a 39 year old male who presents today with: Patient presents with: Back Pain HISTORY OF PRESENT ILLNESS: Elkin Vaughn is a 39 year old male. Patient presents with: Back Pain Elkin Vaughn is a 39-year-old male presenting for evaluation of chronic back pain. Chronic Back Pain: - Chronic back pain, recently exacerbated. - Describes pain as throbbing and terrible ache. - Pain localized to the middle-lower back, slightly above the waistline. - Current pain level rated at 6/10; previously 8/10. - Aggravated by walking and lying down. - Denies radiation of pain to legs or wrapping around the torso. - Denies known trauma or injury; recalls using a waterbed for a long time, which may have contributed to Elkin's back pain. - Denies SOB, cough, wheezing, fever, chills, bowel or bladder issues, and constipation. - Denies IV drug use. - Previously on gabapentin, which may have helped with pain management. PAST MEDICAL HISTORY: PAST MEDICAL HISTORY Diagnosis Date Asthma EXERCISE INDUCED GERD (gastroesophageal reflux disease) Nightmares FRANCISCO (obstructive sleep apnea) Psychiatric disorder BIPOLAR; SCHIZOAFFECTIVE D/O PAST SURGICAL HISTORY Procedure Laterality Date PAST SURGICAL HISTORY OF wisdom teeth ALLERGIES Patient has no known allergies. MEDICATIONS Current Outpatient Medications Medication Sig desvenlafaxine ER (PRISTIQ) 100 mg 24 hr tablet Take 100 mg by mouth once daily. desvenlafaxine ER (PRISTIQ) 50 mg 24 hr tablet Take 50 mg by mouth once daily. busPIRone (BUSPAR) 15 mg tablet Take 15 mg by mouth three times a day. benztropine (COGENTIN) 0.5 mg tablet Take 0.5 mg by mouth once daily. lurasidone (LATUDA) 60 mg tablet Take 60 mg by mouth daily with food. guanFACINE (TENEX) 2 mg tablet Take 2 mg by mouth once daily. prazosin (MINIPRESS) 1 mg cap Take 3 mg by mouth daily at bedtime. clonazePAM (KLONOPIN) 0.5 mg tablet gabapentin (NEURONTIN) 600 mg tablet Take 1 tablet by mouth three times a day. omeprazole (PRILOSEC) 20 mg capsule Take 1 capsule by mouth two times a day. (Patient taking differently: Take 20 mg by mouth once daily.) famotidine (PEPCID) 20 mg tablet Take 1 tablet by mouth two times a day as needed (acid reflux). Mirtazapine 45 mg disintegrating tablet prazosin (MINIPRESS) 2 mg cap Take 2 mg by mouth once daily. No current facility-administered medications for this visit. FAMILY HISTORY Problem Relation Age of Onset No Known Problems Mother Cancer Father skin Social History Tobacco Use Smoking status: Every Day Current packs/day: 0.20 Types: Cigarettes Smokeless tobacco: Never Vaping Use Vaping status: current everyday user Substance Use Topics Alcohol use: No Drug use: Yes Types: Marijuana Comment: daily REVIEW OF SYSTEMS Constitutional: (-) fever, (-) chills Respiratory: (-) shortness of breath, (-) cough, (-) wheezing Gastrointestinal: (-) bowel dysfunction, (-) constipation Genitourinary: (-) urinary incontinence Musculoskeletal: (+) back pain, (-) radiating leg pain EXAM: BP 120/76 Pulse 83 Wt 99.8 kg (220 lb) SpO2 98% BMI 28.25 kg/m PHYSICAL EXAM: GENERAL: NAD, alert and oriented SKIN: unremarkable, no rash or skin lesions. HEAD: normocephalic LUNGS: Clear to auscultation bilaterally, no wheezes/rhonchi/rales. HEART: Regular rate and rhythm, no murmurs. No ectopy. EXTREMITIES: Normal, No deformities, No skin discoloration, No edema. BACK: Tenderness noted in the mid-lower back region at T9 or T10. No radiation of pain. No loss of bowel or bladder function. NEURO: Awake, alert and oriented x3, cranial nerves II-XII grossly intact, normal gait, no involuntary motions LABS: Labs: - (No date) - WBC: 7.5 - Hemoglobin: 14.4 - Hematocrit: 40.6 - Platelets: 272 - Differential: Normal - Sodium: 139 - Potassium: 3.5 - BUN: 13 - Creatinine: 1.12 - Glucose: 98 - GFR: 86 - AST: 40 (minimally elevated) - CPK: 779 - Troponin: 12 - TSH: 1.16 Imaging: - (No date) Chest X-ray: Negative ASSESSMENT/PLAN: 1. Gastroesophageal reflux disease, unspecified whether esophagitis present (K21.9) - Stable 2. 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 Pain is described as throbbing and located in the mid-lower back, without radiation to the legs or around the torso. No associated shortness of breath, cough, wheeze, bowel or bladder dysfunction, or fever and chills. - Physical examination reveals tenderness in the mid-thoracic region, suggestive of a possible old compression fracture. - Recent cessation of gabapentin, which may have been providing analgesic benefit. - Ordered thoracic spine X-ray to evaluate for potential compression fractures or other structural abnormalities. - Prescribed lidocaine patches for localized analgesia and methocarbamol for muscle relaxation. - Will follow up with patient via house phone ([phone]) to discuss X-ray results and adjust treatment as necessary. Discussed treatment plan and patient voices understanding. Patient's questions answered appropriately. Medications and potential side effects were discussed and patient voices understanding. Return to the office as scheduled or as needed for worsening/no improvement. Funmi Hummel APRN.FITNESS AND WELLNESS MANAGER documented in this encounter [facility] 10-17-2024 Discharge summary [facility] 10-17-2024 Discharge summary Note Date/Time October 17, 2024 3:15pm [facility] Medical Records Department [address] [place] [id number] Emergency Department Summary 10/17/24 MR#: [id number] Acct: [id number] Name: ELKIN VAUGHN Renea Rep #:[id number] : 1985 39 From: Norm robins DO PCP: Dr. Alan Castillo MD Status:RE G ER Location: ED HPI History of Present Illness Chief Complaint: Chest Pain Narrative Narrative: Chief complaint and HPI: Chest pain. 39-year-old male with past medical historyof bipolar disorder, anxiety, depression, substance abuse presents for evaluation of chest pain. Patient states that he has recently been in half-way as well as a mental health facility for the past few months. States he got out on Wednesday. States since Wednesday he has been using methamphetamines every day. Admits to decreased p.o. intake and insomnia. Patient states about 25 minutes prior to arrival he began having chest pain. States his body is sore. States prior to this relapse he was clean for 117 days. 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 He denies any fever, chills, shortnessof breath, abdominal pain, nausea, vomiting. Review of systems: See HPI Medications: As listed on the chart Allergies: As listed on the chart PFSH: Per chart Vital signs: As listed on the chart. Reviewed. Physical exam: Gen: A&O x3, anxious Head: Normocephalic, atraumatic Eyes: No sclera icterus, conjunctiva clear, PERRL, EOMI ENT: Dry mucous membranes Neck: Trachea midline, No JVD CV: Tachycardia, regular rhythm, no murmurs, no peripheral edema Resp: Lungs CTA BL, no w/r/c GI: Abd soft, non-distended, non-tender, no r/r/g Musc: Full ROM, no deformity Skin: Warm, dry Neuro: Alert, oriented, grossly intact, sensation intact Psych: Anxious [facility] Medical History Sleep apnea Severe dextromethorphan use disorder Panic attack Anxiety Depression GERD (gastroesophageal reflux disease) Bipolar disorder Home Medications ?Medication ?Instructions ?Recorded ?Last Taken ?Type hydroxyzine HCl 50 mg tablet 100 mg PO Q6H PRN anxiety 11/24/23 Unknown History mirtazapine 30 mg tablet 30 mg PO QHS 11/24/23 Unknow n History omeprazole 20 mg capsule,delayed 20 mg PO DAILY Unknown History release prazosin 2 mg capsule 2 mg PO QHS 11/24/23 Unknown History quetiapine 300 mg tablet 300 mg PO QHS 11/24/23 Unkno wn History risperidone 100 mg/0.28 mL 100 mg subcut QMONTH Unknown History subcutaneous extend release susp syringe benztropine 0.5 mg tablet 0.5 mg PO DAILY 10/17/24 Unk nown History buspirone 15 mg tablet 15 mg PO TID 10/17/24 Unknow n History desvenlafaxine succinate 100 mg 100 mg PO DAILY Unknown History tablet,extended release 24 hr desvenlafaxine succinate 50 mg 50 mg PO DAILY 10/17/24 Unknown History tablet,extended release 24 hr gabapentin 300 mg capsule 300 mg PO Q8H 10/17/24 Unkno wn History guanfacine 2 mg tablet 2 mg PO DAILY 10/17/24 Unkno wn History lurasidone 60 mg tablet 60 mg PO DAILY 10/17/24 Unkn own History prazosin 1 mg capsule 2 mg PO Q12H 10/17/24 Unknow n History risperidone 1 mg tablet 1 mg PO BID 10/17/24 Unknown History Allergy/AdvReac Type Severity Reaction Status Date / Time No Known Allergies Allergy Verified 10/17/24 11:20 Social History household members: none and other details: Patient reports he has children and recently went degeneration so he could Smoking Status: Current every day smoker tobacco type: cigarettes and e-cigarettes EXAM Physical Exam Const Vital Signs: 10/17/24 11:16 10/17/24 11:19 10/17/24 13:21 Temperature 97.7 F L Temperature Source Oral Pulse Rate 102 H 79 Respiratory Rate 24 H 18 Respiratory Effort Normal Non-Labored Respiratory Pattern Tachypnea Blood Pressure 155/98 H Blood Pressure Mean 117 Pulse Ox 98 100 Oxygen Delivery Method Room Air 10/17/24 14:07 10/17/24 15:00 Temperature Temperature Source Pulse Rate 74 80 Respiratory Rate 24 H 20 H Respiratory Effort Respiratory Pattern Blood Pressure Blood Pressure Mean Pulse Ox 98 97 Oxygen Delivery Method MDM MDM MDM Narrative Medical decision making narrative: 39-year-old male with past medical history of bipolar disorder, anxiety, depression, substance abuse presents for evaluation of chest pain. Patient states he has been using methamphetamines since Wednesday. Associated symptom is insomnia, muscle pain, decreased p.o. intake. Patient would like placement for methamphetamine abuse. Differential diagnosis includes but is not limited to methamphetamine intoxication, electrolyte abnormality, dehydration, rhabdomyolysis, low suspicion for ACS or thyroid disease. NS bolus, aspirin, Ativan ordered. Social work consulted. Cardiac workup ordered. Patient has a legal guardian. Social work contacted the legal guardian. She states that patient is currently in a long term. No need for placement at a facility, patient will need to be discharged back to the long term. She did consent to medical workup. EKG and chest x-ray reviewed see below. CBC unremarkable. CMPunremarkable except for mild AST elevation at 40. Magnesium level unremarkable. TSH unremarkable. Troponin x 2 unremarkable. Urine drug screen positive for amphetamine and cannabis. CPK elevated at 779. This is likely secondary to thepatient's methamphetamine abuse. Another NS bolus will be ordered with repeat CPK. Repeat CPK downtrending at 594. On reevaluation, patient's symptoms have improved. He was able to tolerate p.o. intake. His chest pain and other symptoms are likely secondary to his methamphetamine abuse. He was educated that he needs to drink plenty of fluids for the next several days. He needs to use stop using methamphetamines. Follow-up with primary care physician and his outpatient resources. He confirmed understanding the plan. Patient stable to discharge home. EKG: Interpreted by me/EM physician: EKG shows sinus tachycardia with a heart rate of105. No acute ischemic changes. Diagnostic: Interpreted by me/EM physician: Chest x-ray without pneumonia, effusion, cardiomegaly, pneumothorax. Radiology in agreement. Impression: 1. Methamphetamine intoxication with abuse 2. Chest pain secondary to #1 3. Myalgias secondary to #1 Lab Data Labs: Laboratory Results - last 24 hr 10/17/24 10/17/24 10/17/24 11:24 13:16 13:43 WBC 7.5 RBC 4.86 Hgb 14.4 Hct 40.6 MCV 83.5 MCH 29.6 MCHC 35.5 RDW Std Deviation 42.4 RDW Coeff of Gabriel 14.1 Plt Count 272 MPV 8.1 Immature Gran % (Auto) 0.400 Neut % (Auto) 60.4 Lymph % (Auto) 30.0 [place] % (Auto) 8.4 Eos % (Auto) 0.5 Baso % (Auto) 0.3 Absolute Neuts (auto) 4.5 Absolute Lymphs (auto) 2.25 Nucleated RBC % 0 Sodium 139 Potassium 3.5 Chloride 103 Carbon Dioxide 23.8 Anion Gap 12 BUN 13 Creatinine 1.12 Estim Creat Clear Calc 108.92 Est GFR (MDRD) Non-Af 86 BUN/Creatinine Ratio 11.5 Glucose 98 Calcium 9.3 Magnesium 2.2 Total Bilirubin 0.50 AST 40 H ALT 24 Alkaline Phosphatase 74 Total Creatine Kinase 779 H 594 H Troponin T High Sens 12 Troponin T Hi Sens 2 Hr 8 Total Protein 7.2 Albumin 4.5 Globulin 2.7 Albumin/Globulin Ratio 1.7 TSH 1.160 Urine Opiates Screen NEGATIVE U Buprenorphine Qual NEGATIVE Ur Oxycodone Screen NEGATIVE Urine Methadone Screen NEGATIVE Urine Fentanyl Screen NEGATIVE Ur Barbiturates Screen NEGATIVE Ur Phencyclidine Scrn NEGATIVE Ur Amphetamines Screen PRESUMPTIVE POSITIVE U Benzodiazepines Scrn NEGATIVE Urine Cocaine Screen NEGATIVE U Cannabinoids Screen PRESUMPTIVE POSITIVE Radiography Diagnostic Testing: Clinical Impression(s) from Imaging Studies Chest X-Ray 10/17/24 11:55 IMPRESSION: NEGATIVE CHEST Reading Location: [id number] Discharge Plan Triage Chief Complaint: Chest Pain ED Provider: Norm Camp Dx/Rx/DC Orders Prescriptions: No Action quetiapine 300 mg tablet 300 mg PO QHS hydroxyzine HCl 50 mg tablet 100 mg PO Q6H PRN (Reason: anxiety) prazosin 2 mg capsule 2 mg PO QHS risperidone 100 mg/0.28 mL suspension,extended rel syring 100 mg subcut QMONTH mirtazapine 30 mg tablet 30 mg PO QHS omeprazole 20 mg capsule,delayed release(DR/EC) 20 mg PO DAILY benztropine 0.5 mg tablet 0.5 mg PO DAILY gabapentin 300 mg capsule 300 mg PO Q8H guanfacine 2 mg tablet 2 mg PO DAILY buspirone 15 mg tablet 15 mg PO TID desvenlafaxine succinate 50 mg tablet extended release 24 hr 50 mg PO DAILY desvenlafaxine succinate 100 mg tablet extended release 24 hr 100 mg PO DAILY prazosin 1 mg capsule 2 mg PO Q12H lurasidone 60 mg tablet 60 mg PO DAILY risperidone 1 mg tablet 1 mg PO BID Primary Care Provider: Alan Castillo Referrals: Alan Castillo MD [Primary Care Provider] - Print Language: Citizen Of [place] What to do if you have Problems For any increased pain, shortness of breath, bleeding, nausea or vomiting, chestpain, or any unexpected problems, contact your Primary Care Provider. Call [facility] ([phone]) or report to the closest Emergency Room. Call 911 if necessary. 10/17/24 1515 <Electronically signed by Norm Camp DO> Cosigner Signature (if applicable): CC: Dr. Alan Castillo MD ~ Signed [facility] Work Phone: 1([phone]) 301-410107-15-2025 Radiology Diagnostic study note [facility] Imaging Services [address] [place] [address] Chest PA and Lateral MR#: [id number] Acct: [id number] Name: ELKIN VAUGHN Rep #: [id number] : 1985 M 39 From: Chacorta Parra MD PCP: Dr. Alan Castillo MD Status: RE G ER Study:Chest PA and Lateral Date of Exam: 10/17/24 Exam# [id number] Ordering Dr: Norm Gómez DO PROCEDURE: CHEST PA AND LATERAL 10/17/2024 REASON FOR EXAM: CHEST PAIN TECHNIQUE: CHEST PA AND LATERAL COMPARISON: Prior study dated June 14, 2023. FINDINGS: Hardware: EKG electrodes are seen Heart: The heart is nonenlarged Mediastinum: The mediastinal contour is unremarkable. Lungs: The lungs are clear. Bones: The bones are unremarkable. RAD/Chest PA and Lateral IMPRESSION: NEGATIVE CHEST Reading Location: [id number] CC: Dr. Norm Camp DO; Dr. 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 It is a normal responseto stress and usually causes only a mild reaction. When anxiety becomes more severe, it can interfere with daily life. In some cases, you may not even be aware of what it is you re anxious about. There may also be a genetic link or it may be a learned behavior in the home. Both psychological and physical triggers cause stress reaction. It's often a response to fear or emotional stress, real or imagined. This stress may come from home, family, work, or social relationships. During an anxiety reaction, you may feel: Helpless Nervous Depressed Irritable Your body may show signs of anxiety in many ways. You may experience: Dry mouth Shakiness Dizziness Weakness Trouble breathing Breathing fast (hyperventilating) Chest pressure Sweating Headache Nausea Diarrhea Tiredness Inability to sleep Sexual problems Home care Try to locate the sources of stress in your life. They may not be obvious. These may include: oDaily hassles of life (such as traffic jams, missed appointments, or car troubles) oMajor life changes, both good (new baby or job promotion) and bad (loss of job or loss of loved one) oOverload: feeling that you have too many responsibilities and can't take care of all of them at once oFeeling helpless or feeling that your problems are beyond what you re able to solve Notice how your body reacts to stress. Learn to listen to your body signals. This will help you take action before the stress becomes severe. When you can, do something about the source of your stress. (Avoid hassles, limit the amount of change that happens in your life at one time and take a break when you feel overloaded). Unfortunately, many stressful situations can't be avoided. It is necessary to learn how to better manage stress. There are many proven methods that will reduce your anxiety. These include simple things like exercise, good nutrition, and adequate rest. Also, there are certain techniques that are helpful: oRelaxation oBreathing exercises oVisualization oBiofeedback oMeditation For more information about this, consult your healthcare provider or go to a local bookstore and review the many books and tapes available on this subject. Follow-up care If you feel that your anxiety is not responding to self-help measures, contact your healthcare provider or make an appointment with a counselor. You may need short-term psychological counseling and temporary medicine to help you manage stress. Call 911 Call 911 if any of these happen: Trouble breathing Confusion Drowsiness or trouble wakening Fainting or loss of consciousness Rapid heart rate Seizure New chest pain that becomes more severe, lasts longer, or spreads into your shoulder, arm, neck, jaw, or back When to seek medical advice Call your healthcare provider right away if any of these happen: Your symptoms get worse Severe headache not relieved by rest and mild pain reliever [id number] [employer] [address] [facility], [place] [address]. All rights reserved. This information is not intended as a substitute for professional medical care. Always follow yourhealthcare professional's instructions. Follow Up Care 10/14/2024 12:04:22 With:ALAN CASTILLO MD Address: [address] [place], [place] [address]- When:2-4 days [facility] 07-12-2025 Emergency department Discharge summary Discharge Instructions Thank you for allowing [facility] to assist you with your healthcare needs. The following is importantdischarge information regarding your hospital visit. Diagnosis from Today's Visit Anxiety What to Do Next Instructions from Your Care Team No qualifying data available. Post Acute Orders No qualifying data available. You Need to Schedule the Following Appointments Follow Up with ALAN CASTILLO MD When:Within 2-4 days Where:[address] [facility] [place] [address]- Allergies NKA Medications Please ask your primary doctor or pharmacist before taking any other medication not listed, including over the counter drugs, herbal medications, vitamins and or supplements as they may interact withyour home medications. Please take this list to your next doctor s visit. Bring all medications you take, including over the counter medications, herbals and other supplements with you to your doctor s visit. Patients and families are reminded to discard old lists and to update any records with all medication providers or retail pharmacies. Education Materials Anxiety Reaction Anxiety is the feeling we all get when we think something bad might happen. It is a normal responseto stress and usually causes only a mild reaction. When anxiety becomes more severe, it can interfere with daily life. In some cases, you may not even be aware of what it is you re anxious about. There may also be a genetic link or it may be a learned behavior in the home. Both psychological and physical triggers cause stress reaction. It's often a response to fear or emotional stress, real or imagined. This stress may come from home, family, work, or social relationships. During an anxiety reaction, you may feel: Helpless Nervous Depressed Irritable Your body may show signs of anxiety in many ways. You may experience: Dry mouth Shakiness Dizziness Weakness Trouble breathing Breathing fast (hyperventilating) Chest pressure Sweating Headache Nausea Diarrhea Tiredness Inability to sleep Sexual problems Home care Try to locate the sources of stress in your life. They may not be obvious. These may include: oDaily hassles of life (such as traffic jams, missed appointments, or car troubles) oMajor life changes, both good (new baby or job promotion) and bad (loss of job or loss of loved one) oOverload: feeling that you have too many responsibilities and can't take care of all of them at once oFeeling helpless or feeling that your problems are beyond what you re able to solve Notice how your body reacts to stress. Learn to listen to your body signals. This will help you take action before the stress becomes severe. When you can, do something about the source of your stress. (Avoid hassles, limit the amount of change that happens in your life at one time and take a break when you feel overloaded). Unfortunately, many stressful situations can't be avoided. It is necessary to learn how to better manage stress. There are many proven methods that will reduce your anxiety. These include simple things like exercise, good nutrition, and adequate rest. Also, there are certain techniques that are helpful: oRelaxation oBreathing exercises oVisualization oBiofeedback oMeditation For more information about this, consult your healthcare provider or go to a local bookstore and review the many books and tapes available on this subject. Follow-up care If you feel that your anxiety is not responding to self-help measures, contact your healthcare provider or make an appointment with a counselor. You may need short-term psychological counseling and temporary medicine to help you manage stress. Call 911 Call 911 if any of these happen: Trouble breathing Confusion Drowsiness or trouble wakening Fainting or loss of consciousness Rapid heart rate Seizure New chest pain that becomes more severe, lasts longer, or spreads into your shoulder, arm, neck, jaw, or back When to seek medical advice Call your healthcare provider right away if any of these happen: Your symptoms get worse Severe headache not relieved by rest and mild pain reliever [phone] [employer]. [address] [place] [address]23. All rights reserved. This information is not intended as a substitute for professional medical care. Always follow yourhealthcare professional's instructions. Additional Information VACCINATE! IT SAVES LIVES! Members of the community who have not yet received the COVID-19 vaccine and would like to receive it can visit one of [facility] vaccine clinics. There are many vaccine clinic locations within the [facility]. For locations and available times, please visit [email or web address] It is important to note that some COVID mobile vaccine clinics are held outdoors and may be canceled in rainy or stormy conditions. To learn more about pediatric vaccinations (ages 5-11), we invite you to visit the [facility] webpage. [email or web address] [email or web address] learn more about the COVID-19 vaccine, we invite you to visit the CDC website for a list of frequently asked questions. https://www.cdc.gov/coronavirus/2019-ncov/vaccines/faq.html [employer] Patient Portal Access Instructions: Stay connected with your healthcare team and access your personal medical information anytime with the [employer] Patient Portal. If you would like a full copy of your medical records please contact the [facility] Medical Records Department Wednesday through Wednesday between 8a.m. and 4:30p.m. Please follow the directions below to access the portal: 1.Access the email account you provided upon registration to the the [facility].2.Look for an invitation email from [facility].3.Open the email and access the invitation link: Accept Invitation to [employer]4.Fill in the required singh to create your account. Sign into www.[employer] with your username and password that you created in the above steps to stay up to date. You can then view a summary of results, a summary of your visits, and the ability to download your summaries to your computer or send the information securely to a physician. Remember that your healthcare information is confidential, so carefully consider who you will allow to register on the [employer] Patient Portal for access to your information. You can also access the [employer] Patient Portal on the [employer]. Simply click on Health Records under [employer] and then click on the [employer] logo. HOW TO SAFELY DISPOSE OF PRESCRIPTION MEDICATIONS Please use one of the following methods to safely dispose of your unused medications. 1.Use a drug disposal kit: the drug disposal pouch allows you to safely discard your old and unuseddrugs. Ask your nurse to give you one when you are discharged.2.Visit a local take-back location: Many local pharmacies and police departments have programs that collect old and unwanted prescriptiondrugs. Call your local pharmacy or go to http://[employer]/7N6Bi2q to find one close to you.3.Make use of household items: Use cat litter or old coffee grounds to dispose medications if other options arenot available. Mix your drugs with these household products, seal them in an airtight container andthrow it into the garbage. Call [facility]: [phone] to be sure your drugs can be disposed of in this way. Some medicines may require a different approach.4.Never flush your medications down the toilet. IF YOU HAVE BEEN PRESCRIBED AN OPIOIDS FOR PAIN If you have been prescribed an opioid (such as hydrocodone, oxycodone or morphine), it is critical to understand the possible side effects and risks of opioid pain medications. Even when taken as directed, opioids can have several side effects including: Tolerance, meaning you might need to take more of a medication for the same pain relief. Nausea, vomiting and/or constipation. Sleepiness, dizziness, dry mouth, confusion, depression or itching. Physical dependence, meaning you have withdrawal symptoms when a medication is stopped ? this can develop within a few days. KNOW YOUR RESPONSIBILITIES It is important to know exactly how much and how often to take the opioid pain medications you are prescribed. Never take opioids in higher amounts or more often than prescribed. Do not combine opioids with alcohol or other drugs that cause drowsiness, such as benzodiazepines, also known as benzos,including diazepam and alprazolam, muscle relaxants or sleep aids. Never sell or share prescriptionopioids. This is illegal. Store opioids in a secure place and out of reach of others (including children, family, friends and visitors). The last page(s) of this document has been signed and retained as a CHART COPY Signatures Patient Education Materials Anxiety Reaction Medication Leaflets My discharge plan and instructions have been reviewed and explained to me and I,ELKIN VAUGHN understand my current condition and have read and understand these discharge instructions. I have receiveda written copy of the plan/instructions. If I have questions, I am aware that I should contact my do ctor. Patient/Behavioral Modification Assistant Signature: Date/Time: Relationship to Patient: Witness Name/Signature: Date/Time: [facility]05-08-2025 Telephone encounter Note* Telephone Encounter - Alan Castillo MD - 08/10/2024 4:52 PM EDT Noted Alan Castillo MD [facility] Work Phone: [phone]) 965-455505-08-2025 Miscellaneous Notes* Telephone Encounter - Alan Castillo MD - 08/10/2024 4:52 PM EDT Noted Alan Castillo MD * Telephone Encounter - Peg Santos RN - 08/10/2024 2:43 PM EDT Ashley with [employer] calls to let provider know that patient's health risk assessment and care plan isavailable in the provider portal. Also offering for provider to attend care plan meeting and would need two weeks notice if wants to attend. Requesting call back at [phone] if want something set up. Patient is past due for OV. Unable to leave a message on voicemail. Peg [facility] Telephone encounter Note * Telephone Encounter - Peg Santos RN - 08/10/2024 2:43 PM EDT Ashley with [employer] calls to let provider know that patient's health risk assessment and care plan isavailable in the provider portal. Also offering for provider to attend care plan meeting and would need two weeks notice if wants to attend. Requesting call back at [phone] if want something set up. Patient is past due for OV. Unable to leave a message on voicemail. Peg Santos RN [facility]03-15-2025 Discharge summary Author Javi Whitehead [facility] Note Date/Time June 16, 2024 10: 20pm [facility] Medical Records Department [address] [place] [address] Emergency Department Summary 06/16/24 MR#: [id number] Acct: [id number] Name: ELKIN VAUGHN Rep #:[id number] : 1985 39 From: Javi Whitehead MD PCP: Dr. Alan Castillo MD Status:RE G ER Location: ED ADDENDUM by Dr. Javi Whitehead MD on 06/16/24 at 2267 I spoke to the patient's legal guardian. She is court appointed. The long term will not take him back now. So he could be a crisis evaluation to try to get him admitted to a psychiatric locked unit due to his underlying psychiatric illness and his history of drug abuse. 06/16/242<Electronically signed by Javi Whitehead MD> Cosigner Signature (if applicable): cc: Dr. Alan Castillo MD ~* Signed HPI HPI - Psych History of Present Illness Chief Complaint: Suicidal Informant: patient Onset/Context/Timing Onset: Today Current Severity: Mild Maximum Severity: Mild Associated Symptoms Specific plan (suicidal thought): Patient denies actually wanting to kill himself. Denies a specific plan. Narrative Narrative: 39-year-old male history of bipolar, anxiety and currently residing in a long term. Thought today was suicidal so the same and to be evaluated. They need tomedically cleared and then I think they are going to send him to a psychiatric facility but they are going to do it from their long term. Patient states he took 12-16 dextromethorphan pills about 4 to 5 hours ago. He has a history of that. Denies any other attempts. Prior similar symptoms: Yes Recent Illness/Hospitalization: Yes [facility] Medical History Sleep apnea Severe dextromethorphan use disorder Panic attack Anxiety Depression GERD (gastroesophageal reflux disease) Bipolar disorder Home Medications ?Medication ?Instructions ?Recorded ?Last Taken ?Type gabapentin 600 mg tablet 600 mg PO TID 30 days #90 ta bs 10/09/23 Unknown Rx atomoxetine 40 mg capsule 40 mg PO DAILY 11/24/23 Unkn own History duloxetine 60 mg capsule,delayed 60 mg PO DAILY Unknown History release famotidine 20 mg tablet 20 mg PO DAILY 11/24/23 Unkn own History hydroxyzine HCl 50 mg tablet 100 mg PO Q6H PRN anxiety 11/24/23 Unknown History mirtazapine 30 mg tablet 30 mg PO QHS 11/24/23 Unknow n History olanzapine 10 mg tablet 10 mg PO QHS 11/24/23 Unknow n History olanzapine 5 mg tablet 5 mg PO DAILY 11/24/23 Unkno wn History omeprazole 20 mg capsule,delayed 20 mg PO DAILY Unknown History release pramipexole 0.25 mg tablet 0.25 mg PO DAILY 11/24/23 U nknown History prazosin 2 mg capsule 2 mg PO QHS 11/24/23 Unknown History quetiapine 25 mg tablet 25 mg PO BID 11/24/23 Unknow n History quetiapine 300 mg tablet 300 mg PO QHS 11/24/23 Unkno wn History risperidone 100 mg/0.28 mL 100 mg subcut QMONTH Unknown History subcutaneous extend release susp syringe trazodone 50 mg tablet 50 mg PO QHS PRN sleep 11/23 Unknown History lorazepam 0.5 mg tablet (Ativan) 0.5 mg PO BID PRN anx iety #5 tabs 03/22/24 Unknown Rx Allergy/AdvReac Type Severity Reaction Status Date / Time No Known Allergies Allergy Verified 06/16/24 19:57 Social History household members: none and other details: Patient reports he has children and recently went degeneration so he could Smoking Status: Current every day smoker tobacco type: cigarettes and e- cigarettes ROS ROS ED ROS Narrative Denies recent illness. Constitutional Constitutional ED: Denies chills or fever(s) Eyes Eyes: Denies blurry vision ENT ENT ED: Denies ear pain Cardiovascular Cardiovascular: Denies chest pain or palpitations Respiratory/Chest Respiratory/Chest: Denies cough or dyspnea Gastrointestinal Gastrointestinal: Denies abdominal pain Genitourinary Genitourinary ED: Denies dysuria or hematuria Musculoskeletal Musculoskeletal: Denies arthralgias or back pain Integumentary Denies abscess or Abrasions Neurologic Neurologic: Denies headache(s) Psychiatric Psychiatric: Reports anxiety Endocrine Endocrinology: Denies polydipsia, polyphagia or polyuria Hematologic/Lymphatic Hematologic/Lymphatic: Denies easy bleeding, easy bruising or lymphadenopathy Allergic/Immunologic Allergic/Immunologic ED: Denies mouth swelling, tongue swelling or urticaria EXAM Physical Exam Const Vital Signs: 06/16/24 19:57 Temperature 99.6 F H Temperature Source Oral Pulse Rate 125 H Respiratory Rate 19 H Blood Pressure 137/90 H Blood Pressure Mean 105 Pulse Ox 96 Oxygen Delivery Method Room Air Positive well nourished and well developed; Negative for cachectic, contracturesor unkempt General Appearance ED: well developed and NAD; Negative for unkempt, cachectic, contractures or pallor Nutritional Appearance: Negative for cachectic HEENT Reports moist mucous membranes normocephalic and atraumatic; Negative for trauma or tenderness Eyes PERRL and EOMs intact bilaterally General Eye ED: Negative for pale conjunctiva or scleral icterus Neck no lymphadenopathy, supple and no JVD General: Negative for tenderness Resp normal respiratory effort and clear to auscultation bilaterally Effort and Inspection: Negative for retractions Auscultation: Negative for rales, rhonchi, wheezes or diminished lung sounds Cardio S1 normal heart sound, S2 normal heart sound and no murmurs Rate: tachycardic Rhythm: regular rhythm GI non-tender, non-distended and no masses Inspection: Negative for abdominal distention Auscultation: normoactive bowel sounds Palpation: soft; Negative for tender or guarding Back/Spine no CVA tenderness General Back: Negative for CVA tenderness Cervical Spine: Negative for cervical spine tenderness Thoracic Spine / Upper Back: Negative for thoracic spinal tenderness Lumbar Spine / Lower Back: Negative for lumbar spinal tenderness Extremity normal to inspection General Extremety ED: Negative for edema or tenderness General Extremity: Negative for edema Neuro oriented x3 and CN's II-XII intact bilaterally Sensorium / Orientation: alert, oriented to person, oriented to place and oriented to time; Negative for orientation impaired, confused, lethargic or stuporous Motor Exam: strength 5/5 throughout Psych mental status grossly normal, thought process normal, cooperative, affect normal, speech normal, activity/motor behavior normal, denies hallucinations, denies homicidal ideation and denies suicidal ideation Appearance: grossly normal, appropriate and well kempt; Negative for unkempt, disheveled, bizarre or intubated Attitude: calm and engaged Activity / Motor Behavior: appropriate eye contact Speech: normal speech Thought Process: normal thought process Thought Content: normal thought content Attention / Concentration: attention grossly intact Memory / Cognition: memory grossly intact Insight: insight good Judgement: judgement good Skin General Skin Exam: Negative for jaundice or pallor Lesions: no lesions Rashes: no rashes Trauma: Negative for abrasion or laceration Wounds: Negative for amputation MDM MDM MDM Narrative Medical decision making narrative: 39-year-old male history of bipolar reportedly suicidal but he denies. He needshim he medically cleared he will go back to the long term and they will decide and set up transfer to a psychiatric facility. Repeat exam at 9:46 PM patient doing well. Standing ambulating in the room. Repeat exam benign. He will be discharged back to the long term they are goingto make disposition to the mental health facility. History & Record Review Discussion w/independent historian: Patient Additional record(s) reviewed:: Prior inpatient record, Prior outpatient record,Prior ED visit and Prior labs Lab Data Attestation: I reviewed the patient's lab results. Lab results narrative: CBC shows a white count 8. H&H 14 and 41. Platelets 298. Chemistries unremarkable. Gap 13. BUN and creatinine 24 and 1.21. Glucose 112. Alcohol negative. Urine tox pending. Labs: Laboratory Results - last 24 hr 06/16/24 20:42 WBC 8.6 RBC 4.62 Hgb 14.3 Hct 41.3 MCV 89.4 MCH 31.0 MCHC 34.6 RDW Std Deviation 44.7 H RDW Coeff of Gabriel 14.0 Plt Count 298 MPV 8.4 Immature Gran % (Auto) 0.600 Neut % (Auto) 63.1 Lymph % (Auto) 27.9 Laurens % (Auto) 6.5 Eos % (Auto) 1.6 Baso % (Auto) 0.3 Absolute Neuts (auto) 5.4 Absolute Lymphs (auto) 2.41 Nucleated RBC % 0 Discharge Plan Triage Chief Complaint: Suicidal ED Provider: Javi Whitehead Dx/Rx/DC Orders Clinical Impression: Suicidal thoughts, History of bipolar disorder Instructions: ED Bipolar Disorder Prescriptions: No Action quetiapine 300 mg tablet 300 mg PO QHS famotidine 20 mg tablet 20 mg PO DAILY duloxetine 60 mg capsule,delayed release(DR/EC) 60 mg PO DAILY hydroxyzine HCl 50 mg tablet 100 mg PO Q6H PRN (Reason: anxiety) pramipexole 0.25 mg tablet 0.25 mg PO DAILY prazosin 2 mg capsule 2 mg PO QHS risperidone 100 mg/0.28 mL suspension,extended rel syring 100 mg subcut QMONTH quetiapine 25 mg tablet 25 mg PO BID atomoxetine 40 mg capsule 40 mg PO DAILY trazodone 50 mg tablet 50 mg PO QHS PRN (Reason: sleep) olanzapine 10 mg tablet 10 mg PO QHS mirtazapine 30 mg tablet 30 mg PO QHS olanzapine 5 mg tablet 5 mg PO DAILY omeprazole 20 mg capsule,delayed release(DR/EC) 20 mg PO DAILY lorazepam [Ativan] 0.5 mg tablet 0.5 mg PO BID PRN (Reason: anxiety) Qty: 5 0RF gabapentin 600 mg tablet 600 mg PO TID 30 Days Qty: 90 0RF Primary Care Provider: Alan Castillo Referrals: Alan Castillo MD [Primary Care Provider] - Activity Restrictions/Additional Instructions: Medically cleared. Proceed with mental health evaluation Print Language: Citizen Of [place] Disposition Disposition: Home, Self Care What to do if you have Problems For any increased pain, shortness of breath, bleeding, nausea or vomiting, chestpain, or any unexpected problems, contact your Primary Care Provider. Call [facility] ([phone]) or report to the closest Emergency Room. Call 911 if necessary. 06/16/242146 <Electronically signed by Javi Whitehead MD> Cosigner Signature (if applicable): CC: Dr. Alan Castillo MD ~ Signed [facility] Work Phone: 1(139) 835-706803-14-2025 Discharge summary [facility] Medical Records Department [address] [place] [address] Emergency Department Summary 06/16/24 MR#: [id number] Acct: [id number] Name: ELKIN VAUGHN Rep #:[id number] : 1985 39 From: Javi Whitehead MD PCP: Dr. Alan Castillo MD Status:RE G ER Location: ED ADDENDUM by Dr. Javi Whitehead MD on 06/16/24 at 2219 I spoke to the patient's legal guardian. She is court appointed. The long term will not take him back now. So he could be a crisis evaluation to try to get him admitted to a psychiatric locked unit due to his underlying psychiatric illness and his history of drug abuse. 06/16/242218 Cosigner Signature (if applicable): cc: Dr. Alan Castillo MD ~* Signed HPI HPI - Psych History of Present Illness Chief Complaint: Suicidal Informant: patient Onset/Context/Timing Onset: Today Current Severity: Mild Maximum Severity: Mild Associated Symptoms Specific plan (suicidal thought): Patient denies actually wanting to kill himself. Denies a specific plan. Narrative Narrative: 39-year-old male history of bipolar, anxiety and currently residing in a long term. Thought today was suicidal so the same and to be evaluated. They need tomedically cleared and then I think they are going to send him to a psychiatric facility but they are going to do it from their long term. Patient states he took 12-16 dextromethorphan pills about 4 to 5 hours ago. He has a history of that. Denies any other attempts. Prior similar symptoms: Yes Recent Illness/Hospitalization: Yes [facility] Medical History Sleep apnea Severe dextromethorphan use disorder Panic attack Anxiety Depression GERD (gastroesophageal reflux disease) Bipolar disorder Home Medications ?Medication ?Instructions ?Recorded ?Last Taken ?Type gabapentin 600 mg tablet 600 mg PO TID 30 days #90 ta bs 10/09/23 Unknown Rx atomoxetine 40 mg capsule 40 mg PO DAILY 11/24/23 Unkn own History duloxetine 60 mg capsule,delayed 60 mg PO DAILY Unknown History release famotidine 20 mg tablet 20 mg PO DAILY 11/24/23 Unkn own History hydroxyzine HCl 50 mg tablet 100 mg PO Q6H PRN anxiety 11/24/23 Unknown History mirtazapine 30 mg tablet 30 mg PO QHS 11/24/23 Unknow n History olanzapine 10 mg tablet 10 mg PO QHS 11/24/23 Unknow n History olanzapine 5 mg tablet 5 mg PO DAILY 11/24/23 Unkno wn History omeprazole 20 mg capsule,delayed 20 mg PO DAILY Unknown History release pramipexole 0.25 mg tablet 0.25 mg PO DAILY 11/24/23 U nknown History prazosin 2 mg capsule 2 mg PO QHS 11/24/23 Unknown History quetiapine 25 mg tablet 25 mg PO BID 11/24/23 Unknow n History quetiapine 300 mg tablet 300 mg PO QHS 11/24/23 Unkno wn History risperidone 100 mg/0.28 mL 100 mg subcut QMONTH Unknown History subcutaneous extend release susp syringe trazodone 50 mg tablet 50 mg PO QHS PRN sleep 11/23 Unknown History lorazepam 0.5 mg tablet (Ativan) 0.5 mg PO BID PRN anx iety #5 tabs 03/22/24 Unknown Rx Allergy/AdvReac Type Severity Reaction Status Date / Time No Known Allergies Allergy Verified 06/16/24 19:57 Social History household members: none and other details: Patient reports he has children and recently went degeneration so he could Smoking Status: Current every day smoker tobacco type: cigarettes and e-cigarettes ROS ROS ED ROS Narrative Denies recent illness. Constitutional Constitutional ED: Denies chills or fever(s) Eyes Eyes: Denies blurry vision ENT ENT ED: Denies ear pain Cardiovascular Cardiovascular: Denies chest pain or palpitations Respiratory/Chest Respiratory/Chest: Denies cough or dyspnea Gastrointestinal Gastrointestinal: Denies abdominal pain Genitourinary Genitourinary ED: Denies dysuria or hematuria Musculoskeletal Musculoskeletal: Denies arthralgias or back pain Integumentary Denies abscess or Abrasions Neurologic Neurologic: Denies headache(s) Psychiatric Psychiatric: Reports anxiety Endocrine Endocrinology: Denies polydipsia, polyphagia or polyuria Hematologic/Lymphatic Hematologic/Lymphatic: Denies easy bleeding, easy bruising or lymphadenopathy Allergic/Immunologic Allergic/Immunologic ED: Denies mouth swelling, tongue swelling or urticaria EXAM Physical Exam Const Vital Signs: 06/16/24 19:57 Temperature 99.6 F H Temperature Source Oral Pulse Rate 125 H Respiratory Rate 19 H Blood Pressure 137/90 H Blood Pressure Mean 105 Pulse Ox 96 Oxygen Delivery Method Room Air Positive well nourished and well developed; Negative for cachectic, contracturesor unkempt General Appearance ED: well developed and NAD; Negative for unkempt, cachectic, contractures or pallor Nutritional Appearance: Negative for cachectic HEENT Reports moist mucous membranes normocephalic and atraumatic; Negative for trauma or tenderness Eyes PERRL and EOMs intact bilaterally General Eye ED: Negative for pale conjunctiva or scleral icterus Neck no lymphadenopathy, supple and no JVD General: Negative for tenderness Resp normal respiratory effort and clear to auscultation bilaterally Effort and Inspection: Negative for retractions Auscultation: Negative for rales, rhonchi, wheezes or diminished lung sounds Cardio S1 normal heart sound, S2 normal heart sound and no murmurs Rate: tachycardic Rhythm: regular rhythm GI non-tender, non-distended and no masses Inspection: Negative for abdominal distention Auscultation: normoactive bowel sounds Palpation: soft; Negative for tender or guarding Back/Spine no CVA tenderness General Back: Negative for CVA tenderness Cervical Spine: Negative for cervical spine tenderness Thoracic Spine / Upper Back: Negative for thoracic spinal tenderness Lumbar Spine / Lower Back: Negative for lumbar spinal tenderness Extremity normal to inspection General Extremety ED: Negative for edema or tenderness General Extremity: Negative for edema Neuro oriented x3 and CN's II-XII intact bilaterally Sensorium / Orientation: alert, oriented to person, oriented to place and oriented to time; Negative for orientation impaired, confused, lethargic or stuporous Motor Exam: strength 5/5 throughout Psych mental status grossly normal, thought process normal, cooperative, affect normal, speech normal, activity/motor behavior normal, denies hallucinations, denies homicidal ideation and denies suicidal ideation Appearance: grossly normal, appropriate and well kempt; Negative for unkempt, disheveled, bizarre or intubated Attitude: calm and engaged Activity / Motor Behavior: appropriate eye contact Speech: normal speech Thought Process: normal thought process Thought Content: normal thought content Attention / Concentration: attention grossly intact Memory / Cognition: memory grossly intact Insight: insight good Judgement: judgement good Skin General Skin Exam: Negative for jaundice or pallor Lesions: no lesions Rashes: no rashes Trauma: Negative for abrasion or laceration Wounds: Negative for amputation MDM MDM MDM Narrative Medical decision making narrative: 39-year-old male history of bipolar reportedly suicidal but he denies. He needshim he medically cleared he will go back to the long term and they will decide and set up transfer to a psychiatric facility. Repeat exam at 9:46 PM patient doing well. Standing ambulating in the room. Repeat exam benign. He will be discharged back to the long term they are goingto make disposition to the mental health facility. History & Record Review Discussion w/independent historian: Patient Additional record(s) reviewed:: Prior inpatient record, Prior outpatient record,Prior ED visit and Prior labs Lab Data Attestation: I reviewed the patient's lab results. Lab results narrative: CBC shows a white count 8. H&H 14 and 41. Platelets 298. Chemistries unremarkable. Gap 13. BUN and creatinine 24 and 1.21. Glucose 112. Alcohol negative. Urine tox pending. Labs: Laboratory Results - last 24 hr 06/16/24 20:42 WBC 8.6 RBC 4.62 Hgb 14.3 Hct 41.3 MCV 89.4 MCH 31.0 MCHC 34.6 RDW Std Deviation 44.7 H RDW Coeff of Gabriel 14.0 Plt Count 298 MPV 8.4 Immature Gran % (Auto) 0.600 Neut % (Auto) 63.1 Lymph % (Auto) 27.9 Laurens % (Auto) 6.5 Eos % (Auto) 1.6 Baso % (Auto) 0.3 Absolute Neuts (auto) 5.4 Absolute Lymphs (auto) 2.41 Nucleated RBC % 0 Discharge Plan Triage Chief Complaint: Suicidal ED Provider: Javi Whitehead Dx/Rx/DC Orders Clinical Impression: Suicidal thoughts, History of bipolar disorder Instructions: ED Bipolar Disorder Prescriptions: No Action quetiapine 300 mg tablet 300 mg PO QHS famotidine 20 mg tablet 20 mg PO DAILY duloxetine 60 mg capsule,delayed release(DR/EC) 60 mg PO DAILY hydroxyzine HCl 50 mg tablet 100 mg PO Q6H PRN (Reason: anxiety) pramipexole 0.25 mg tablet 0.25 mg PO DAILY prazosin 2 mg capsule 2 mg PO QHS risperidone 100 mg/0.28 mL suspension,extended rel syring 100 mg subcut QMONTH quetiapine 25 mg tablet 25 mg PO BID atomoxetine 40 mg capsule 40 mg PO DAILY trazodone 50 mg tablet 50 mg PO QHS PRN (Reason: sleep) olanzapine 10 mg tablet 10 mg PO QHS mirtazapine 30 mg tablet 30 mg PO QHS olanzapine 5 mg tablet 5 mg PO DAILY omeprazole 20 mg capsule,delayed release(DR/EC) 20 mg PO DAILY lorazepam [Ativan] 0.5 mg tablet 0.5 mg PO BID PRN (Reason: anxiety) Qty: 5 0RF gabapentin 600 mg tablet 600 mg PO TID 30 Days Qty: 90 0RF Primary Care Provider: Alan Castillo Referrals: Alan Castillo MD [Primary Care Provider] - Activity Restrictions/Additional Instructions: Medically cleared. Proceed with mental health evaluation Print Language: Citizen Of [place] Disposition Disposition: Home, Self Care What to do if you have Problems For any increased pain, shortness of breath, bleeding, nausea or vomiting, chestpain, or any unexpected problems, contact your Primary Care Provider. Call [facility] ([phone]) or report tothe closest Emergency Room. Call 911 if necessary. [id number] Cosigner Signature (if applicable): CC: Dr. Alan Castillo MD ~ Signed [facility]03-07-2025 NoteDischarge Summary Elkin Vaughn : 1985 ADMIT DATE: 06/01/2024 DISCHARGE DATE: 06/09/2024 PRIMARY CARE PHYSICIAN: Alan Castillo VISIT STATUS: Admission CODE STATUS: Full Code DISCHARGE DIAGNOSES: Principal Problem: Schizoaffective disorder (CMS/HCC) ([facility]) Active Problems: Hallucinations Anxiety disorder Polysubstance (including opioids) dependence, daily use ([facility]) HISTORY OF PRESENT ILLNESS: The patient is a 39 y.o. male who presented both on 06/01/2024 with delusional behavior, making bizarre statements, and displaying disorientation/inability care for self with a past medical history of polysubstance use disorder, posttraumatic stress disorder, borderline personality disorder, bipolar 1 disorder versus schizoaffective disorder, who has a guardian, and follows with community support services. Patient's medications were confirmed in the ED by nurse practitioner above, and again by this author except patient noted on interview today he is taking gabapentin 600 mg 3 times daily. Patient states that he takes that medication for anxiety and panic attacks. (Confirmed via PDMP that is the correct dose, and frequency). Patient notes that he [facility] to [facility] to pursue sobriety with that facility. Notes that they refused him due to his mental conditions when asked about what conditions they refused him for patient noted panic attacks. Per collateral patient has a guardian Clinton Elizabeth who was contacted by above Susan MELTON. Patient on interview also noted that he received his Invega Sustenna dose approximately 2 to 3 weeks ago. (We will need to obtain records from [facility]). Per guardian patient had been released from [facility] last Wednesday. Documentation in the ED indicates that patient noted he smoked marijuana, and UDS was positive for fentanyl. Patient on interview is denying suicidal ideations, homicidal ideations, and auditory visual hallucinations. Patient notes that he wants to continue his medications as ordered except he would like to start gabapentin as the facility he is going to will not take him if he is on Klonopin. Patient also notes that he is not concerned about withdrawal from alcohol or from fentanyl. Patient notes that he does not regularly use these substances, and therefore does not require addiction medicine referral/consult. Patient had no further concerns at this time. Past Psychiatric History: The patient is currently receiving care for the above psychiatric illness with Katerina Holman . Past mental health outpatient care includes: Katerina Holman, while in half-way Previous psychiatric hospitalizations: I think in [place], last known admission to [facility] on 03-26-24 for an intentions overdose of xanax Previous diagnoses: BPD, Bipolar, psychosis, anxiety, panic disorder, schizoaffective disorder bipolar type Previous suicide attempts: Pt denies- per records hx of overdose in March 2024 History of self-injurious behavior: HX of cutting last cut years ago History of violence: Past psychiatric medications include: Per guardian current medications ordered are Propranolol HCL 20mg PO TID Risperdal 1mg PO BID Omeprazole 20mg PO Daily- empty stomach Mirtazapine 30mg PO at bedtime Invega Sustenna 234mg injection Q 4weeks HOSPITAL COURSE: Elkin was admitted to [facility] for unspecified psychosis. Patient's home gabapentin 600 mg 3 times daily, Remeron 30 mg nightly, and Inderal 20 mg 3 times daily were continued. Risperdal was discontinued as it was confirmed that patient had received Invega Sustenna 234 mg every 28 days on 05/16 he was given this medication again on 06/09 prior to discharge with next dose due on 07/07. Elkin was compliant with medications and psychotherapy sessions in the form of theraputic interviewing. This patient participated in group therapy and had transitional care meetings with social work. This patient reported continued improvement throughout hospitalization. Patient had 2 instances in which he required the use of as needed agitation medications; however, did not require any for 72+ hours prior to discharge. Sleep and appetite were reportedly good. Elkin denied suicidal ideation, homicidal ideation, symptoms of min, obsessions/compulsions, and symptoms of psychosis (ex: auditory/visual hallucinations) for 48+ hours prior to discharge. Social work team able to speak with legal guardian (Clinton Elizabeth [phone])) and coordinate discharge plan. They were able to confirm that the patient does not have access to firearms or other weapons. They felt that the patient had returned to their baseline and felt comfortable with the plan to discharge from the hospital today as well as the discharge plan. They verbalized understanding of ED return precautions. Treatment team encouraged follow up with [facility] upon discharge (more content not included)...[facility] [id number] NoteLSW met with patient. He denied suicidal ideations. He has appointments set up with the [facility]ing [facility]. He denied access to weapons. He will be picked up tonight by Caitie Renee and transported to their treatment program.[facility]03-06-2025 NoteProblem: Sensory Perceptual Alteration as Evidenced by Goal: Cooperates with admission process Outcome: Progressing Goal: Discusses signs/symptoms of illness/treatment options [facility] NoteDepartment of Psychiatry Attending Progress Note CHIEF COMPLAINT: Psychosis SUBJECTIVE: Patient was seen today for continued management of his psychosis in the context of polysubstance abuse. Chart was reviewed and case was discussed with the nurse. Per nursing report, there have been no significant behavioral outbursts. He can be demanding and intrusive at times. Today on our conversation he was just focused on being discharged. He claims that he talked to [facility]. He claims they told him if he could get a ride and be there from 11 to 1 PM he can enter the program. This is not the case. There is a wait list for [facility]. Social work did talk with Caitie Renee who said the patient can call tomorrow morning and likely be accepted there. He was hoping he would be discharged today. He did meet with his guardian today. Apparently he receives his monthly Invega Sustenna injection from the [facility]. The early breastfeeding care specialist contacted the clinic. They said due to repeated no-shows he is on standby status for the next year. This means we cannot schedule an appointment for his injection today 06/13/2024. Today says he slept okay last night. Better than previous nights. He denies hearing voices. Denies suicidal or homicidal ideation. REVIEW OF SYSTEMS: Medical Review Of Systems: NA Psychiatric Review Of Systems: Anxiety: Yes, Depression: Denies, Irritability: yes, Change in concentration: Yes, Ruminating thoughts: Yes, Racing thoughts: No, Suicidal Ideation: [] Yes (passive) [x] No Homicidal Ideation: [] Yes [x] No Auditory Hallucinations: [] Yes [x] No (?) Visual Hallucinations: [] Yes [x] No Delusions: [] Yes [x] No [] Unknown at this time Appetite: [] Normal [x] Unchanged [] Increased [] Decreased Sleep: [x] Normal [] Unchanged [] Increased [] Decreased Energy: [x] Normal [] Unchanged [] Increased [] Decreased Aggression: [x] No [] Yes Medication side effects(SE): [x] None endorsed [] Present Physical: VITALS: Blood pressure 110/82, pulse 116, temperature 36.4 ?C (97.5 ?F), temperature source Temporal, resp. rate 18, height 1.905 m (6' 3), weight 90.7 kg (200 lb), SpO2 95%. Mental Status Exam: Muscle tone is normal with no rigidity or tremor. Appears well-hydrated and nourished. Appearance: [] Casually groomed [x] Unkempt [] Disheveled Level of Consciousness: [x] Alert [] Drowsy [] Tired [] Lethargic [] Distractible [] Asleep [] Could not be assessed Gait and Station: [x] Stable [] Sitting [] Lying down [] Unstable [] In wheel chair or other support Manner: [x] Cooperative [] Guarded [] Suspicious [] Irritable [] Hostile [] Withdrawn Motor Activity: [x] Normal [] Agitation [] Psychomotor retardation [] Tremor [] Abnormal involuntary movements [] Extrapyramidal side effects Speech: [x] Normal/Clear [] Soft [] Loud [] Rapid [] Pressured [] Dysarthria [] Incoherent Language: [x] Normal [] Aphasia [] Could not be assessed Mood: [] Euthymic [] Dysphoric [] Irritable [] Angry [x] Anxious [] Fearful [] Apathetic [] Euphoric [] Other [] Could not be assessed Affect: [x] Normally variable [] Restricted [] Blunted [] Flat [] Irritable [] Angry [] Anxious [] Labile [] Expansive [] Exaggerated Thought Process/Association: [x] Normal [] Tangential [] Circumstantial [] Poverty of Thought [] Disorganized [] Racing Thoughts [] Flight of Ideas [] Organized and logical [] Intact [] Loose [] Could not be assessed Abstraction: [x] Intact [] [place] [] Could not be assessed Thought Content: [] Hopelessness [] Worthlessness [] Hypochondriasis [] Anxious [] Depressed [] Ruminations [] Obsessions/Compulsions [] Hopeful [] Motivated [x] Future Oriented [] Could not be assessed Delusions: [x] No noted delusions [] Delusions [] Persecutory [] Bizarre [] Amish [] Grandiose [] Somatic [] Could not be assessed Thoughts of Harm: [x] No SI/HI [] Passive wish [] No suicidal ideation [] Suicidal ideation with plan [] Suicidal ideation without plan [] No homicidal ideation [] Homicidal ideation with plan [] Homicidal ideation without plan [] Could not be assessed Hallucinations: [x] No hallucinations (denies but concern for possible internal stimulation) [] Hallucinations [] Auditory [] Visual [] Olfactory [] Tactile [] Could not be assessed Attention/Concentration: [] Intact [] Poor [x] Distractible Remote Memory: [x] Grossly Intact [] Impaired [] Poor [] Could not be assessed Short Term Memory: [x] Grossly Intact [] Impaired [] Poor [] Could not be assessed Insight: [] Intact [] Fair [x] Limited [] Poor Judgement: [] Intact [] Fair [x] Impaired [] Improved MEDICATIONS: gabapentin, 600 mg, Oral, TID mirtazapine, 30 mg, Oral, Nightly pantoprazole, 40 mg, Oral, qAM AC propranolol, 20 mg, Oral, TID QUEtiapine XR, 300 mg, Oral, Nightly Data: No new lab results to review ASSESSMENT: Psychosis unspecified type Anxiety unspecified Polys (more content not included)...[facility] [id number] Note Department of Psychiatry Attending Progress Note CHIEF COMPLAINT: Psychosis SUBJECTIVE: Patient was seen today for continued management of his psychosis in the context of polysubstance abuse. Chart was reviewed and case was discussed with the nurse. Per nursing report, last night he was laying in bed since the start of shift was irritable and demanding medication for anxiety. But the nurse notes that there is no outward signs or symptoms of anxiety. He can be intrusive with female staff. He was not requesting meds today. He was upset that he would not be discharged today. We are still waiting on the inpatient drug and alcohol treatment program. He was hoping to go to [facility] but apparently they do not take his insurance. Per social work referrals were made to [facility] and [facility]. Today he continues to be a difficult historian. He tends to give vague answers to questions regarding symptoms. The night before last he was having a difficult time, feeling overwhelmed. I asked if he was having voices. And he explained now he just talks to himself in his sleep. And he could not expand on what he meant by that I suggested we increase the Seroquel to help with his sleep and for psychosis. Today the early breastfeeding care specialist did verify that his last monthly maintenance dose of Invega Sustenna 234 mg was given on 05/16/2024, next dose due . REVIEW OF SYSTEMS: Medical Review Of Systems: NA Psychiatric Review Of Systems: Anxiety: Yes, Depression: Denies, Irritability: yes, Change in concentration: Yes, Ruminating thoughts: Yes, Racing thoughts: No, Suicidal Ideation: [] Yes (passive) [x] No Homicidal Ideation: [] Yes [x] No Auditory Hallucinations: [] Yes [x] No (?) Visual Hallucinations: [] Yes [x] No Delusions: [] Yes [x] No [] Unknown at this time Appetite: [] Normal [x] Unchanged [] Increased [] Decreased Sleep: [x] Normal [] Unchanged [] Increased [] Decreased Energy: [x] Normal [] Unchanged [] Increased [] Decreased Aggression: [x] No [] Yes Medication side effects(SE): [x] None endorsed [] Present Physical: VITALS: Blood pressure 117/76, pulse 88, temperature 36.4 ?C (97.5 ?F), temperature source Temporal, resp. rate 16, height 1.905 m (6' 3), weight 90.7 kg (200 lb), SpO2 95%. Mental Status Exam: Muscle tone is normal with no rigidity or tremor. Appears well-hydrated and nourished. Appearance: [] Casually groomed [x] Unkempt [] Disheveled Level of Consciousness: [x] Alert [] Drowsy [] Tired [] Lethargic [] Distractible [] Asleep [] Could not be assessed Gait and Station: [x] Stable [] Sitting [] Lying down [] Unstable [] In wheel chair or other support Manner: [x] Cooperative [] Guarded [] Suspicious [] Irritable [] Hostile [] Withdrawn Motor Activity: [x] Normal [] Agitation [] Psychomotor retardation [] Tremor [] Abnormal involuntary movements [] Extrapyramidal side effects Speech: [x] Normal/Clear [] Soft [] Loud [] Rapid [] Pressured [] Dysarthria [] Incoherent Language: [x] Normal [] Aphasia [] Could not be assessed Mood: [] Euthymic [] Dysphoric [] Irritable [] Angry [x] Anxious [] Fearful [] Apathetic [] Euphoric [] Other [] Could not be assessed Affect: [x] Normally variable [] Restricted [] Blunted [] Flat [] Irritable [] Angry [] Anxious [] Labile [] Expansive [] Exaggerated Thought Process/Association: [x] Normal [] Tangential [] Circumstantial [] Poverty of Thought [] Disorganized [] Racing Thoughts [] Flight of Ideas [] Organized and logical [] Intact [] Loose [] Could not be assessed Abstraction: [x] Intact [] [place] [] Could not be assessed Thought Content: [] Hopelessness [] Worthlessness [] Hypochondriasis [] Anxious [] Depressed [] Ruminations [] Obsessions/Compulsions [] Hopeful [] Motivated [x] Future Oriented [] Could not be assessed Delusions: [x] No noted delusions [] Delusions [] Persecutory [] Bizarre [] Amish [] Grandiose [] Somatic [] Could not be assessed Thoughts of Harm: [x] No SI/HI [] Passive wish [] No suicidal ideation [] Suicidal ideation with plan [] Suicidal ideation without plan [] No homicidal ideation [] Homicidal ideation with plan [] Homicidal ideation without plan [] Could not be assessed Hallucinations: [x] No hallucinations (denies but concern for possible internal stimulation) [] Hallucinations [] Auditory [] Visual [] Olfactory [] Tactile [] Could not be assessed Attention/Concentration: [] Intact [] Poor [x] Distractible Remote Memory: [x] Grossly Intact [] Impaired [] Poor [] Could not be assessed Short Term Memory: [x] Grossly Intact [] Impaired [] Poor [] Could not be assessed Insight: [] Intact [] Fair [x] Limited [] Poor Judgement: [] Intact [] Fair [x] Impaired [] Improved MEDICATIONS: gabapentin, 600 mg, Oral, TID mirtazapine, 30 mg, Oral, Nightly pantoprazole, 40 mg, Oral, qAM AC propranolol, 20 mg, Oral, TID QUEtiapine XR, 3 (more content not included)...[facility]03-05-2025 NoteReferrals made to [facility] via fax [phone] and [facility] via fax [phone]. Spoke with staff at [facility] and pt would need to call on his own to place intake assessment. Message left at [facility] requesting call back about admissions process. Spoke with [facility] and pt would need to call to place an intake assessment pre-screen. Await decisions from [facility] and [facility] if they can accept pt. SW will discuss with pt about calling for assessments at [facility] and [facility]. [facility]03-05-2025 NoteSpoke with [facility] and left confidential vm with Monica/corporate banking officer regarding current medication list. [facility] is currently active for services. Will keep treatment team updated. [facility]03-04-2025 NoteProblem: Potential for Harm to Self or Others Goal: Identifies deescalation techniques Outcome: Progressing Problem: Educational/Scholastic Disruption Goal: Meets educational requirements during hospitalization [facility]: [facility]2025 NoteDepartment of Psychiatry Attending Progress Note CHIEF COMPLAINT: Psychosis SUBJECTIVE: Patient was seen today for continued management of his psychosis in the context of polysubstance abuse. Chart was reviewed and case was discussed with the nurse. Per nursing report last night he slept poorly. He also was requesting PRN medication because he said he was hallucinating when he closed his eyes. He did fall asleep later and slept through breakfast. This morning he told the nurse that he feels good today. Today on our interview he was focused on not being able to sleep. I asked if he sleeps a lot during the day and he said he did. I encouraged him to stay up as much as possible during the day so good sleep at night. He is requesting medication adjustments to help him sleep. REVIEW OF SYSTEMS: Medical Review Of Systems: NA Psychiatric Review Of Systems: Anxiety: Yes, Depression: Denies, Irritability: No, Change in concentration: Yes, Ruminating thoughts: Yes, Racing thoughts: No, Suicidal Ideation: [] Yes (passive) [x] No Homicidal Ideation: [] Yes [x] No Auditory Hallucinations: [] Yes [x] No Visual Hallucinations: [] Yes [x] No Delusions: [] Yes [x] No [] Unknown at this time Appetite: [] Normal [x] Unchanged [] Increased [] Decreased Sleep: [x] Normal [] Unchanged [] Increased [] Decreased Energy: [x] Normal [] Unchanged [] Increased [] Decreased Aggression: [x] No [] Yes Medication side effects(SE): [x] None endorsed [] Present Physical: VITALS: Blood pressure 104/78, pulse 103, temperature 36.8 ?C (98.2 ?F), temperature source Temporal, resp. rate 18, height 1.905 m (6' 3), weight 90.7 kg (200 lb), SpO2 94%. Mental Status Exam: Muscle tone is normal with no rigidity or tremor. Appears well-hydrated and nourished. Appearance: [] Casually groomed [x] Unkempt [] Disheveled Level of Consciousness: [x] Alert [] Drowsy [] Tired [] Lethargic [] Distractible [] Asleep [] Could not be assessed Gait and Station: [x] Stable [] Sitting [] Lying down [] Unstable [] In wheel chair or other support Manner: [x] Cooperative [] Guarded [] Suspicious [] Irritable [] Hostile [] Withdrawn Motor Activity: [x] Normal [] Agitation [] Psychomotor retardation [] Tremor [] Abnormal involuntary movements [] Extrapyramidal side effects Speech: [x] Normal/Clear [] Soft [] Loud [] Rapid [] Pressured [] Dysarthria [] Incoherent Language: [x] Normal [] Aphasia [] Could not be assessed Mood: [] Euthymic [] Dysphoric [] Irritable [] Angry [x] Anxious [] Fearful [] Apathetic [] Euphoric [] Other [] Could not be assessed Affect: [x] Normally variable [] Restricted [] Blunted [] Flat [] Irritable [] Angry [] Anxious [] Labile [] Expansive [] Exaggerated Thought Process/Association: [x] Normal [] Tangential [] Circumstantial [] Poverty of Thought [] Disorganized [] Racing Thoughts [] Flight of Ideas [] Organized and logical [] Intact [] Loose [] Could not be assessed Abstraction: [x] Intact [] [place] [] Could not be assessed Thought Content: [] Hopelessness [] Worthlessness [] Hypochondriasis [] Anxious [] Depressed [] Ruminations [] Obsessions/Compulsions [] Hopeful [] Motivated [x] Future Oriented [] Could not be assessed Delusions: [x] No noted delusions [] Delusions [] Persecutory [] Bizarre [] Amish [] Grandiose [] Somatic [] Could not be assessed Thoughts of Harm: [x] No SI/HI [] Passive wish [] No suicidal ideation [] Suicidal ideation with plan [] Suicidal ideation without plan [] No homicidal ideation [] Homicidal ideation with plan [] Homicidal ideation without plan [] Could not be assessed Hallucinations: [x] No hallucinations (denies but concern for possible internal stimulation) [] Hallucinations [] Auditory [] Visual [] Olfactory [] Tactile [] Could not be assessed Attention/Concentration: [] Intact [] Poor [x] Distractible Remote Memory: [x] Grossly Intact [] Impaired [] Poor [] Could not be assessed Short Term Memory: [x] Grossly Intact [] Impaired [] Poor [] Could not be assessed Insight: [] Intact [] Fair [x] Limited [] Poor Judgement: [] Intact [] Fair [x] Impaired [] Improved MEDICATIONS: gabapentin, 600 mg, Oral, TID mirtazapine, 30 mg, Oral, Nightly pantoprazole, 40 mg, Oral, qAM AC propranolol, 20 mg, Oral, TID risperiDONE, 1 mg, Oral, BID Data: No new lab results to review ASSESSMENT: Psychosis unspecified type Anxiety unspecified Polysubstance dependence DISCUSSION/PLAN: For psychosis will increase risperidone from 1 mg to 3 mg BID. We need to verify when he last received his monthly maintenance dose of Invega Sustenna 234 mg which was last given at [facility]. To help with sleep we will start Seroquel 100 mg HS. Once we verify his Invega Sustenna dose and we will likely discontinue the oral Risperdal. Tentative plan will be discharge to inpatient drug and alcohol treatment program, ideally at [facility] (more content not included)...[facility]03-04-2025 NotePhone call to Kristie at [facility] [phone] follow-up on referral. Per Kristie the team met and discussed patient and forwarded clinicals to their mental health provider. Kristie stated she should have an answer tomorrow. Telephone call to patient's guardian Annmarie Elizabeth [phone] to update and also provide main unit line for guardian to call to speak with covering clinical social work therapist. [facility]03-04-2025 NoteReceived phone call from Kristie at [facility] [phone]. Kristie verified faxed referral was received and the team is currently reviewing the clinicals. Social work continues to follow. [facility]03-04-2025 NoteProblem: Potential for Harm to Self or Others Goal: Identifies deescalation techniques Outcome: Not [facility]ing[facility]03-[facility]25 NoteDepartment of Psychiatry Attending Progress Note CHIEF COMPLAINT: Psychosis SUBJECTIVE: Patient was seen today for continued management of his psychosis in the context of polysubstance abuse. Chart was reviewed and case was discussed with the nurse. Per nursing report he has been withdrawn to his room and comes out for meals. This morning I saw him out and about on the unit. There have been no behavioral issues overnight. He tells me that he would like to go to a drug and alcohol treatment program through [facility]. Case was reviewed in treatment team. Social work was in contact with his guardian. We are working for possible discharge to the [facility] program. Today tells me that he is feeling fine. I suspect he minimizes issues. He said his mood is fine. Denieshearing voices. No overtly delusional themes. No suicidal or homicidal ideation. According to records the night nurse that he was complaining of being anxious was in his room talking to himself claiming he was talking to a friend in his dream. He seemed to be drug seeking for something for anxiety. OBJECTIVE REVIEW OF SYSTEMS: Medical Review Of Systems: NA Psychiatric Review Of Systems: Anxiety: Yes, Depression: Denies, Irritability: No, Change in concentration: Yes, Ruminating thoughts: Yes, Racing thoughts: No, Suicidal Ideation: [] Yes (passive) [x] No Homicidal Ideation: [] Yes [x] No Auditory Hallucinations: [] Yes [x] No Visual Hallucinations: [] Yes [x] No Delusions: [] Yes [x] No [] Unknown at this time Appetite: [] Normal [x] Unchanged [] Increased [] Decreased Sleep: [x] Normal [] Unchanged [] Increased [] Decreased Energy: [x] Normal [] Unchanged [] Increased [] Decreased Aggression: [x] No [] Yes Medication side effects(SE): [x] None endorsed [] Present Physical: VITALS: Blood pressure 134/88, pulse 98, temperature 36.8 ?C (98.3 ?F), temperature source Temporal, resp. rate 18, height 1.905 m (6' 3), weight 90.7 kg (200 lb), SpO2 96%. Mental Status Exam: Muscle tone is normal with no rigidity or tremor. Appears well-hydrated and nourished. Appearance: [] Casually groomed [x] Unkempt [] Disheveled Level of Consciousness: [x] Alert [] Drowsy [] Tired [] Lethargic [] Distractible [] Asleep [] Could not be assessed Gait and Station: [x] Stable [] Sitting [] Lying down [] Unstable [] In wheel chair or other support Manner: [x] Cooperative [] Guarded [] Suspicious [] Irritable [] Hostile [] Withdrawn Motor Activity: [x] Normal [] Agitation [] Psychomotor retardation [] Tremor [] Abnormal involuntary movements [] Extrapyramidal side effects Speech: [x] Normal/Clear [] Soft [] Loud [] Rapid [] Pressured [] Dysarthria [] Incoherent Language: [x] Normal [] Aphasia [] Could not be assessed Mood: [] Euthymic [] Dysphoric [] Irritable [] Angry [x] Anxious [] Fearful [] Apathetic [] Euphoric [] Other [] Could not be assessed Affect: [x] Normally variable [] Restricted [] Blunted [] Flat [] Irritable [] Angry [] Anxious [] Labile [] Expansive [] Exaggerated Thought Process/Association: [x] Normal [] Tangential [] Circumstantial [] Poverty of Thought [] Disorganized [] Racing Thoughts [] Flight of Ideas [] Organized and logical [] Intact [] Loose [] Could not be assessed Abstraction: [x] Intact [] [place] [] Could not be assessed Thought Content: [] Hopelessness [] Worthlessness [] Hypochondriasis [] Anxious [] Depressed [] Ruminations [] Obsessions/Compulsions [] Hopeful [] Motivated [x] Future Oriented [] Could not be assessed Delusions: [x] No noted delusions [] Delusions [] Persecutory [] Bizarre [] Amish [] [place] [] Somatic [] Could not be assessed Thoughts of Harm: [x] No SI/HI [] Passive wish [] No suicidal ideation [] Suicidal ideation with plan [] Suicidal ideation without plan [] No homicidal ideation [] Homicidal ideation with plan [] Homicidal ideation without plan [] Could not be assessed Hallucinations: [x] No hallucinations (denies but concern for possible internal stimulation) [] Hallucinations [] Auditory [] Visual [] Olfactory [] Tactile [] Could not be assessed Attention/Concentration: [] Intact [] Poor [x] Distractible Remote Memory: [x] Grossly Intact [] Impaired [] Poor [] Could not be assessed Short Term Memory: [x] Grossly Intact [] Impaired [] Poor [] Could not be assessed Insight: [] Intact [] Fair [x] Limited [] Poor Judgement: [] Intact [] Fair [x] Impaired [] Improved MEDICATIONS: gabapentin, 600 mg, Oral, TID mirtazapine, 30 mg, Oral, Nightly pantoprazole, 40 mg, Oral, qAM AC propranolol, 20 mg, Oral, TID risperiDONE, 1 mg, Oral, BID Data: No new lab results to review ASSESSMENT: Psychosis unspecified type Anxiety unspecified Polysubstance dependence DISCUSSION/PLAN: Will continue current meds. Tentative plan will be discharge to inpatient drug and alcohol treatment program, ideally at [facility]. Diagnostic t (more content not included)...[facility] [id number] Note Attestation signed by Janeen Ricketts DO at 06/03/2024 6:44 PM The patient was seen and examined independently. The patient's history, presentation, and treatment were discussed with the psychiatric resident, Dr. Gauthier . I agree with Dr. Gauthier below findings and plan. In addition, patient requests assistance to get back into rehab. Requested referral to [facility]. Department of Psychiatry History and Physical - Adult CHIEF COMPLAINT: Delusional/psychotic 2/2 to use of cannabis that was apparently laced with fentanyl History obtained from: chart review, patient reports, and caregiver reports Patient was seen after discussion with staff and reviewing the chart Patient was seen in the ED by psychiatry nurse practitioner Susan Sharif, per their assessment: 39yo male with history of schizoaffective disorder, borderline personality disorder, anxiety, and polysubstance abuse who presented to the ED twice recently. Most recent episode was after having bizarre behavior, delusional, and auditory hallucinations while at [facility]. Per guardian patient decompensated, not doing well and she is requesting an admission. Escalation of care, including admission to inpatient psychiatry, was considered. Pt DOES require involuntary psychiatric admission at this time. HISTORY OF PRESENT ILLNESS: The patient is a 39 y.o. male who presented both on 06/01/2024 with delusional behavior, making bizarre statements, and displaying disorientation/inability care for self with a past medical history of polysubstance use disorder, posttraumatic stress disorder, borderline personality disorder, bipolar 1 disorder versus schizoaffective disorder, who has a guardian, and follows with community support services. Patient's medications were confirmed in the ED by nurse practitioner above, and again by this author except patient noted on interview today he is taking gabapentin 600 mg 3 times daily. Patient states that he takes that medication for anxiety and panic attacks. (Confirmed via PDMP that is the correct dose, and frequency). Patient notes that [facility] with that facility. Notes that they refused him due to his mental conditions when asked about what conditions they refused him for patient noted panic attacks. Per collateral patient has a guardian Clinton Elizabeth who was contacted by above Susan MELTON. Patient on interview also noted that he received his Invega Sustenna dose approximately 2 to 3 weeks ago. (We will need to obtain records from [facility]). Per guardian patient had been released from [facility] last Wednesday. Documentation in the ED indicates that patient noted he smoked marijuana, and UDS was positive for fentanyl. Patient on interview is denying suicidal ideations, homicidal ideations, and auditory visual hallucinations. Patient notes that he wants to continue his medications as ordered except he would like to start gabapentin as the facility he is going to will not take him if he is on Klonopin. Patient also notes that he is not concerned about withdrawal from alcohol or from fentanyl. Patient notes that he does not regularly use these substances, and therefore does not require addiction medicine referral/consult. Patient had no further concerns at this time. Medications Prior to Admission: gabapentin, 600 mg, Oral, TID mirtazapine, 30 mg, Oral, Nightly pantoprazole, 40 mg, Oral, qAM AC propranolol, 20 mg, Oral, TID risperiDONE, 1 mg, Oral, BID PRN medications: acetaminophen, diphenhydrAMINE AND haloperidol AND LORazepam, diphenhydrAMINE AND haloperidol lactate AND LORazepam, loperamide, nicotine, nicotine polacrilex, polyethylene glycol (PEG) 3350, traZODone Compliance:Compliant Psychiatric Review of Systems (Negative if unchecked) [] Change in appetite/weight [] Change in sleep MOOD: [x] Anhedonia [x] Decreased/low mood [x] Worthlessness/Guilt [] Hopeless/Helpless [] Decreased energy [x] Decreased concentration ANXIETY: [x] Excessive worry/difficulty controlling worry [x] Irritability [x] Easily fatigued [] Difficulty concentrating [] Obsessions [x] Palpitations/Chest pain [] Diaphoresis [] Shortness of breath [] Trembling/shaking [] Sense of doom/fear of dying [] Agoraphobia [] Derealization/Depersonalization PTSD: [x] Nightmares [] Flashbacks [x] Avoidance [x] Hyperarousal [x] Hypervigilance MIN: [] Inflated self esteem/grandiosity [] Elevated energy [] Decreased need for sleep [] Talkative/rapid/pressured speech [] Flight of ideas/racing thoughts [] Distractibility [] Increased goal directed activity [] Risky behaviors/activities [] Irritability [] Psychomotor agitation PSYCHOSIS: [] Auditory hallucinations [] Visual royce (more content not included)...[facility]03-01-2025 NotePatient declined smoking cessation counseling. He is accepting of handouts with contact information for future reference. Patient has NRT patches and gum ordered.[facility]03-01-2025 NoteProblem: Potential for Harm to Self or Others Goal: Identifies deescalation techniques Outcome: Progressing Problem: Sensory Perceptual Alteration as Evidenced by Goal: Discusses signs/symptoms of illness/treatment options Outcome: [facility]03-01-2025 NoteProblem: Sensory Perceptual Alteration as Evidenced by Goal: Discusses signs/symptoms of illness/treatment options Outcome: [facility]02-28-2025 NotePt has guardianship papers. Guardian is [facility]02-28-2025 NoteDepartment of Psychiatry Nurse Practitioner Emergency Psychiatric Evaluation CHIEF COMPLAINT: Chief Complaint Patient presents with Delusional Patient was at [facility] and his back hurt and laid on the ground. Patient said he lost consciousness and then woke up. Patient was delusional and was seeing dogs. Patient denies SI/HI. Patient said he bought some weed and ate it. HISTORY OF PRESENT ILLNESS: The patient is a 39 y.o.male with significant past medical history of polysubstance dependence, unspecified mood disorder who arrived after being transferred in from a [facility] due to complaint of back pain, delusions, and seeing dogs. Per Emergency Room Evaluation: In brief, Elkin Vaughn is a 39 y.o. adult that presented to the emergency department past medical history of bipolar PTSD schizophrenia OCD polysubstance abuse presenting with chief complaint of hallucinations. Positioning minimally febrile tachycardic complaint of back pain. Neuroexam was performed there was no concerns of cord compression. Serotonin syndrome was considered patient did not have reported clonus. No recent serotonergic medications on chart review. CK has been downtrending initially 3000. Negative for methamphetamines positive for fentanyl. No ethanol. Psych was consulted and recommended evaluation by morning ER team. Does not appear actively intoxicated per previous provider. QTc within normal limits. Medical clearance included CK 3,033 which down trended to 1,552, ETOH undetectable, UDS positive for fentanyl, QTC 462, negative COVID/Flu/RSV Per ED staff patient has had bizarre behavior, intense eye contact, staring at staff. Per records Per nursing ED notes: Patient attempting to pull iv out of arm and walking away. DEVON Onofre at patient bedside redirecting patient. Patient becoming agitated with staff. Patient believes he is fine and wants something to eat and drink. Patient has been continuously vomiting. Patient defecated in bed and placed feces in corner of room. DEVON Gutierrez providing with new gown. New bedding and chucks placed under patient. Per Emergency Room Evaluation from 06-01-24 MDM elements: The patient presented with chief complaint of wanting medication refill, he denied any suicidal or homicidal thoughts, he does have a history of schizophrenia but did not appear to be acutely psychotic, patient did not tell me that he had a guardian and was discharged, the guardian later called and I spoke to her twice, patient came back into the ED and I try to get him to stay for evaluation but he said he wanted to go out and smoke a cigarette and then left again. I did not have anything to hold him on as far as a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 [id number] NoteHNO ID: [id number] Author: JOSELUIS STRAUSS RN Service: ? Author Type: Registered Nurse Type: Progress Notes Filed: 03/24/2024 13:18 Note Text: ED Follow-Up Note Provider Action / FYI: Outreach was attempted with this patient via telephone regarding the patient's recent [facility] ED visit. Unable to leave a voicemail message Phone # in epic is incorrect.No further phone number available Call completed by: RN Patient seen in ED: Out of Network ED Contact made with Patient: No, unable to leave message. Third attempt - patient is unable to be reached. Joseluis Strauss RN March 24, 2024 1:17 [facility]12-20-2024 History of Present illness Narrative* Joseluis Strauss RN - 03/24/2024 1:16 PM EST ED Follow-Up Note Provider Action / FYI: Outreach was attempted with this patient via telephone regarding the patient's recent [facility] ED visit. Unable to leave a voicemail message Phone # in [employer] is incorrect.No further phone number available Call completed by: RN Patient seen in ED: Out of Network ED Contact made with Patient: No, unable to leave message. Third attempt - patient is unable to be reached. Joseluis Strauss RN March 24, 2024 1:17 PM [facility] Emergency department Note * Sarah Lovelace - 03/24/2024 9:22 AM EST Patient standing in doorway. [id number]* Sarah Lovelace - 03/24/2024 9:11 AM EST Registration at bedside. [facility] [id number] Emergency department Note* Sarah Lovelace - 03/24/2024 9:10 AM EST Breakfast tray delivered. [address]20-2024 Emergency department Note* Sarah Lovelace - 03/24/2024 8:03 AM EST Pt escorted by protective public service representative back to his room. [address]20-2024 Emergency department Note* Sarah Lovelace - 03/24/2024 8:02 AM EST Pt up roaming in hallway, pt standing in front of nurses station and refusing to go back to his room. [address]20-2024 Emergency department Note* Sarah Lovelace - 03/24/2024 7:59 AM EST Pt up to restroom, occupied by another pt so RN gave him urinal. [address]20-2024 Emergency department Note* Aleta Tidwell - 03/24/2024 7:11 AM EST [place], RN @ bedside to obtain vitals [address]20-2024 Emergency department Note* Aleta Tidwell - 03/24/2024 6:48 AM EST EKG @ bedside [address]20-2024 Emergency department Note* Aleta Tidwell - 03/24/2024 6:44 AM EST Pt given water bottle [address]20-2024 Emergency department Note* Aleta Tidwell - 03/24/2024 6:[address] Barreto @ bedside [address]20-2024 Emergency department Note* [facility] Raghavendra - 03/24/2024 6:27 AM EST Pt given two bottles of water [address]20-2024 Emergency department Note* [facility] Raghavendra - 03/24/2024 6:23 AM EST Pt given blanket and water [address]20-2024 Emergency department Note* [facility] - 03/24/2024 6:13 AM EST Pt changed into two gowns and one pair of socks. Pt wanded by protective services and a visual skincheck was conducted by RN. Pt belongings were placed into three belonging bags, which were zip-tied, tagged and locked in locker 57A. [facility]12-20-2024 Physician Emergency department Note* Ramon Garcia DO - 03/24/2024 5:28 AM EST Emergency Department Encounter [facility] EMERGENCY DEPT Patient: Elkin Vaughn : 1985 Date of Evaluation: 03/24/2024 ED Supervising Physician: Ramon Garcia DO I personally saw Elkin Vaughn and made/approved the management plan and take responsibility for the patient management. This will serve as my Supervisory note and shared attestation. I did perform a substantive portion of the visit including all aspects of the Medical Decision Making. I wore appropriate PPE for the entirety of this encounter. In brief, Elkin Vaughn is a 39 y.o. that presents to the emergency department with methamphetamine use. Patient is residing at [facility] when he had a relapse of methamphetamines. Andwas brought in by a friend initially requesting detox. Initially came to the emergency room at 8:30PM on 03/23/2024. Discharged at 4:15 AM. When the patient realized that it was called out and new testing did not open till 8 AM he then told staff that he was suicidal. Patient admits to me that he is not suicidal and just told him that so he would have a place to stay for another 4 hours until new earline opening. Currently is asymptomatic with no complaints requesting discharge to go back to [facility]. Focused exam: Alert and oriented 4, no acute distress, nontoxic appearing, Pulm: clear to auscultation bilaterally, Cardiac: regular rate and rhythm, Abdomen: soft nontender, Neuro: no focal motor orsensory deficits. Brief ED course/MDM: Patient requests detox from meth. Patient was discharged at 4 AM but then subsequently told staff that he was suicidal, admits that he only told them this so he would have a bed to sleep in until new earline open 8 AM. When I reevaluate him around 9 AM he is asymptomatic requesting discharge. As he was faking suicidality and I feel he needs any further psychiatric evaluation a t this time. Encouraged not to do this in the future, stop using meth and adhere to all the rules of his sober living facility. Will discharge. Diagnostics interpreted by me: I personally discussed the patient's management with other clinicians: All diagnostic, treatment, and disposition decisions were made by myself in conjunction with the resident. I also supervised jenkins portions of any procedures performed by the Resident. For all further details of the patient's emergency department visit, please see their documentation. (Comment: Please note this report has been produced using speech recognition software and may contain errors related to that system including errors in grammar, punctuation, and spelling, as well as words and phrases that may be inappropriate. If there are any questions or concerns please feel freeto contact the dictating provider for clarification.) Ramon Garcia DO [facility] Ramon Garcia DO 03/24/24 0952 [facility]12-20-2024 Physician Emergency department Note* Fuad Barreto DO - 03/24/2024 5:28 AM EST EMERGENCY DEPARTMENT ENCOUNTER Pt Name: Elkin Vaughn Birthdate 1985 Date of evaluation: 03/24/2024 ED Provider: Fuad Barreto DO CHIEF COMPLAINT Chief Complaint Patient presents with Suicidal Pt reports I want to leave my body and see my loves ones in [facility] . Pt reports hx of attempt as a teen. Hx of substance use. Reports his plan is to overdose on drugs Psychiatric Evaluation HISTORY OF PRESENT ILLNESS (Location/Symptom, Timing/Onset, Context/Setting, Quality, Duration, Modifying Factors, Severity) Note limiting factors. I wore appropriate PPE for the entirety of this encounter. HPI Elkin Vaughn is a 39 y.o. with a past medical history of polysubstance abuse (meth, crack cocaine, EtOH, marijuana), depression, currently homeless, who presents to the emergency department from a detox facility for the evaluation of suicidal ideations. Patient explains that he he has a plan to overdose on street drugs. Denies HI, hallucinations. Denies any medical concerns at this time, includingfevers, chest pain, shortness of breath, abdominal. Nursing Notes were reviewed. Limitations to history: None Outside historians: EMS REVIEW OF SYSTEMS Review of Systems Pertinent positives and negatives as per HPI. PAST MEDICAL HISTORY Past Medical History: Diagnosis Date Bipolar 1 disorder (HCC) OCD (obsessive compulsive disorder) Psychiatric problem PTSD (post-traumatic stress disorder) Schizo affective schizophrenia (HCC) SURGICAL HISTORY History reviewed. No pertinent surgical history. CURRENT MEDICATIONS Previous Medications No medications on file ALLERGIES Patient has no known allergies. FAMILY HISTORY No family history on file. SOCIAL HISTORY Social History Socioeconomic History Marital status: Single Tobacco Use Smoking status: Every Day Current packs/day: 1.00 Types: Cigarettes Substance and Sexual Activity Alcohol use: Not Currently Drug use: Yes SCREENINGS PHYSICAL EXAM ED Triage Vitals [03/24/24 0712] Temp Heart Rate Resp BP 36.1 C (96.9 F) 75 16 96/67 SpO2 Temp Source Heart Rate Source Patient Position 100 % Temporal Monitor -- BP Location FiO2 (%) -- -- Physical Exam Vitals and nursing note reviewed. Constitutional: Appearance: Normal appearance. HENT: Head: Normocephalic and atraumatic. Mouth/Throat: Pharynx: Oropharynx is clear. Cardiovascular: Rate and Rhythm: Normal rate and regular rhythm. Pulses: Normal pulses. Heart sounds: Normal heart sounds. Pulmonary: Effort: Pulmonary effort is normal. No respiratory distress. Breath sounds: Normal breath sounds. No wheezing, rhonchi or rales. Abdominal: Palpations: Abdomen is soft. Tenderness: There is no abdominal tenderness. Musculoskeletal: General: No signs of injury. Normal range of motion. Skin: General: Skin is warm and dry. Capillary Refill: Capillary refill takes less than 2 seconds. Neurological: General: No focal deficit present. Mental Status: He is alert and oriented to person, place, and time. Mental status is at baseline. Psychiatric: Attention and Perception: Attention and perception normal. Mood and Affect: Mood normal. Affect is tearful. Speech: Speech is tangential. Behavior: Behavior is cooperative. Thought Content: Thought content does not include homicidal or suicidal ideation. Judgment: Judgment is not impulsive or inappropriate. DIAGNOSTIC RESULTS RADIOLOGY (Per Emergency Physician): Interpretation per the Radiologist below, if available at the time of this note: No orders to display LABS: Labs Reviewed CBC WITH AUTO DIFFERENTIAL - Abnormal Result Value Auto WBC 5.5 RBC 4.09 (*) Hemoglobin 12.4 (*) Hematocrit 35.9 (*) MCV 87.8 MCH 30.3 MCHC 34.5 RDW 14.3 Platelets 236 MPV 8.5 (*) nRBC 0.0 Neutrophils Relative 50.8 Lymphocytes Relative 37.2 Monocytes Relative 8.3 Eosinophils Relative 3.1 Basophils Relative 0.4 Immature Grans % 0.2 Neutrophils Absolute 2.8 Lymphocytes Absolute 2.1 Monocytes Absolute 0.5 Eosinophils Absolute 0.2 Basophils Absolute 0.0 Immature Grans Absolute 0.0 CK - Abnormal CK 506 (*) COMPREHENSIVE METABOLIC PANEL - Abnormal SODIUM 141 POTASSIUM 3.4 (*) CHLORIDE 106 CARBON DIOXIDE 27 ANION GAP 8 UREA NITROGEN 13 CREATININE 0.95 GLUCOSE 97 CALCIUM 9.1 AST (SGOT) 34 (*) ALT 24 ALKALINE PHOSPHATASE 49 ALBUMIN 3.9 BILIRUBIN, TOTAL 0.5 TOTAL PROTEIN 7.0 eGFR >90.0 SARS-COV-2 ANTIGEN - Normal SARS-CoV-2 Antigen Negative ETHANOL - Normal ETHANOL IN SER/PLAS <10 Narrative: COMPUTER GAME TESTER depression is seen >100 mg/dL. NOTE: This result is for medical treatment only. Analysis performed using non- forensic procedures. COMPLETE URINALYSIS - Normal Color, Urine Colorless Clarity, Urine Clear pH, Urine 5.5 Leukocytes, Urine Negative Nitrite, Urine Negative Protein, Urine Negative Glucose, Urine Normal Bilirubin, Urine Negative Ketones, Urine Negative Urobilinogen, Urine Normal Blood, Urine Negative SPECIFIC GRAVITY OF URINE (NUMERIC) 1.007 COMPLETE URINALYSIS WITH REFLEX TO CULTURE Narrative: The following orders were created for panel order Complete Urinalysis with reflex to Culture. Procedure Abnormality Status --------- ------ Complete Urinalysis[[id number]] Normal Final result Please view results for these tests on the individual orders. DRUGS OF ABUSE AMPHETAMINE SCREEN Positive BARBITURATES SCREEN Negative BENZODIAZEPINE SCREEN Negative COCAINE METAB. SCREEN Negative METHADONE SCREEN Negative OPIATES SCREEN Negative OXYCODONE SCREEN Negative PHENCYCLIDINE SCREEN Negative FENTANYL SCREEN, UR QUAL Negative Narrative: The expected value for all of the drugs listed above is Negative. The following drugs or drug groups have been screened for by Immunoassay at the following thresholds: Amphetamine class (1000 ng/mL) Barbiturates (200 ng/mL) Benzodiazepines (200 ng/mL) Cocaine (300 ng/mL) Methadone (300 ng/mL) Opiates (300 ng/mL) Oxycodone (100 ng/mL) PCP (25 ng/mL) Fentanyl (1.0 ng/ml) NOTE: These results are for medical treatment only. Analysis performed using non-forensic procedures. POSITIVE results are NOT confirmed by a more specific alternative method unless requested. If confirmation is needed, request confirmation under separateorder. All other labs were within normal range or not returned as of this dictation. EMERGENCY DEPARTMENT COURSE and DIFFERENTIAL DIAGNOSIS/MDM: Vitals: Vitals: 03/24/24 0712 03/24/24 1002 BP: 96/67 127/77 Pulse: 75 92 Resp: 16 16 Temp: 36.1 C (96.9 F) 36.3 C (97.4 F) TempSrc: Temporal Temporal SpO2: 100% 100% The patient presented with a chief complaint of suicidal ideation. Patient is cooperative on exam but somewhat tangential. Does appear tearful at times, but does express having a meaningful life and wants to be a better father. Ordered basic psych labs and a CK for admission of meth and cocaine use. Patient hemodynamically stable on arrival with no acute medical concerns at this time. Workup reveals positive amphetamine, CK 506, not concerning for rhabdomyolysis. Otherwise, grossly unremarkable. On reevaluation of patient, per my attending, patient stated he did not truly endorse suicidal ideation. This information is consistent with police records, who are at the facility at the time. Per police, the facility explained to patient that if he expressed suicidal ideation, he will be admitted and likely transferred to [place], where he preferred to seek treatment. At this time, patient is medically cleared for discharge with plans for outpatient management. Offered patient resources and contact information for his preferred facility of treatment in [place]. Patient agreeable to this plan. Diagnoses as of 03/24/24 1024 Methamphetamine use (CMS/[facility]) ([facility]) ED Medications managed: Medications - No data to display PROCEDURES: Unless otherwise noted below, none Procedures FINAL IMPRESSION 1. Methamphetamine use (CMS/[facility]) ([facility]) DISPOSITION Discharge 03/24/2024 09:17:43 AM PATIENT REFERRED TO: Alan Castillo [address] [facility] [id number] Schedule an appointment as soon as possible for a visit DISCHARGE MEDICATIONS: New Prescriptions No medications on file (Comment: Please note this report has been produced using speech recognition software and may contain errors related to that system including errors in grammar, punctuation, and spelling, as well as words and phrases that may be inappropriate. If there are any questions or concerns please feel freeto contact the dictating provider for clarification.) Fuad Barreto DO (electronically signed) Emergency Medicine Provider Fuad Barreto DO Resident 03/24/24 1024 Cosigned by Ramon Garcia DO at 03/24/2024 12:51 PM EST [employer] Phone: [phone]) 243-676012-20-2024 Emergency department Note* Mehreen Blood RN - 03/24/2024 4:11 AM EST Several attempts made to get ahold of [facility] without success. Protective services called and had pt call and leave VM. Protective services escorted pt off property and bus pass was given to pt [id number] Emergency department Note* Mehreen Blood RN - 03/24/2024 4:11 AM EST Several attempts made to get ahold of [facility] without success. Protective services called and had pt call and leave VM. Protective services escorted pt off property and bus pass was given to pt * Mehreen Blood RN - 03/24/2024 4:01 AM EST Called [facility] nurse line, no answer. Will try again in 15min * Leni Anne DO - 03/23/2024 8:24 PM EST EMERGENCY DEPARTMENT ENCOUNTER Pt Name: Elkin Vaughn Birthdate 1985 Date of evaluation: 03/23/2024 ED Provider: Leni Anne DO CHIEF COMPLAINT Chief Complaint Patient presents with Drug / Alcohol Assessment Pt here to detox from meth. Pt states last use was this morning. Denies use of other substances at this time, but has previously used other drugs HISTORY OF PRESENT ILLNESS (Location/Symptom, Timing/Onset, Context/Setting, Quality, Duration, Modifying Factors, Severity) Note limiting factors. I wore appropriate PPE for the entirety of this encounter. HPI Elkin Vaughn is a 39 y.o. who presents to the emergency department with chief complaint of methamphetamine abuse and wanting possible detox. Patient states he is currently a resident of [facility] facility and did have a relapse and used methamphetamines or brought in by a friend. Did not have any alcohol use ever since he checked into [facility]. No other substances use. No suicidal or homicidal ideation. He was apparently told by staff and he does need to be evaluated in the ED for possible detox placement. Nursing Notes were reviewed. Limitations to history: None Outside historians: None REVIEW OF SYSTEMS Review of Systems Pertinent positives and negatives as per HPI PAST MEDICAL HISTORY Past Medical History: Diagnosis Date Bipolar 1 disorder ([facility]) OCD (obsessive compulsive disorder) Psychiatric problem PTSD (post-traumatic stress disorder) Schizo affective schizophrenia ([facility]) SURGICAL HISTORY No past surgical history on file. CURRENT MEDICATIONS There are no discharge medications for this patient. ALLERGIES Patient has no known allergies. FAMILY HISTORY No family history on file. SOCIAL HISTORY Social History Socioeconomic History Marital status: Single Tobacco Use Smoking status: Every Day Current packs/day: 1.00 Types: Cigarettes Substance and Sexual Activity Alcohol use: Not Currently Drug use: Yes PHYSICAL EXAM ED Triage Vitals [03/23/24 2325] Temp Heart Rate Resp BP (!) 35.6 C (96 F) 104 18 114/79 SpO2 Temp Source Heart Rate Source Patient Position 100 % Temporal Monitor Sitting BP Location FiO2 (%) Left arm -- Physical Exam Vitals and nursing note reviewed. Constitutional: General: He is not in acute distress. Appearance: He is well-developed. HENT: Head: Normocephalic and atraumatic. Eyes: Conjunctiva/sclera: Conjunctivae normal. Cardiovascular: Rate and Rhythm: Normal rate and regular rhythm. Heart sounds: No murmur heard. Pulmonary: Effort: Pulmonary effort is normal. No respiratory distress. Breath sounds: Normal breath sounds. Abdominal: Palpations: Abdomen is soft. Tenderness: There is no abdominal tenderness. Musculoskeletal: General: No swelling. Cervical back: Neck supple. Skin: General: Skin is warm and dry. Capillary Refill: Capillary refill takes less than 2 seconds. Neurological: Mental Status: He is alert and oriented to person, place, and time. Cranial Nerves: No cranial nerve deficit. Motor: No weakness. Gait: Gait normal. Psychiatric: Attention and Perception: Attention normal. Mood and Affect: Mood is elated. Speech: Speech is rapid and pressured. Behavior: Behavior is not agitated or aggressive. Behavior is cooperative. Thought Content: Thought content normal. DIAGNOSTIC RESULTS RADIOLOGY (Per Emergency Physician): Interpretation per the Radiologist below, if available at the time of this note: No orders to display LABS: Labs Reviewed BASIC METABOLIC PANEL - Abnormal Result Value SODIUM 139 POTASSIUM 3.9 CHLORIDE 109 (*) CARBON DIOXIDE 25 UREA NITROGEN 15 CREATININE 0.98 GLUCOSE 125 (*) CALCIUM 8.7 ANION GAP 5 eGFR >90.0 CK - Abnormal CK 539 (*) COMPLETE URINALYSIS WITH REFLEX TO CULTURE Narrative: The following orders were created for panel order Complete Urinalysis with reflex to Culture. Procedure Abnormality Status --------- ------ Complete Urinalysis[[id number]] Please view results for these tests on the individual orders. COMPLETE URINALYSIS All other labs were within normal range or not returned as of this dictation. EMERGENCY DEPARTMENT COURSE and DIFFERENTIAL DIAGNOSIS/MDM: Vitals: Vitals: 03/23/24 2325 BP: 114/79 BP Location: Left arm Patient Position: Sitting Pulse: 104 Resp: 18 Temp: (!) 35.6 C (96 F) TempSrc: Temporal SpO2: 100% Medications LORazepam (Ativan) tablet 1 mg (1 mg Oral Given 03/24/24 020) acetaminophen (Tylenol) tablet 650 mg (650 mg Oral Given 03/24/24201) Patient presents ED with recent methamphetamine use wanting detox. He had reported prior history ofalcohol abuse but to me did not endorse any recent alcohol use. Clinically no signs of acute alcohol withdrawal. He has no hallucinations. He also denies any suicidal or homicidal ideation. Due to the reported methamphetamine use, we did check renal function and CK levels. There is no signs of any JEANNETTE or rhabdomyolysis. He is not febrile. Appears well- hydrated. Ambulatory in the ED and toleratingoral intake. I discussed with patient that he is suitable for outpatient follow-up and a list of local detox centers were provided to him. He was encouraged to return to [facility] to continue residence there. FINAL IMPRESSION 1. Methamphetamine abuse ([facility]) ([facility]) DISPOSITION Discharge 03/24/2024 03:22:59 AM PATIENT REFERRED TO: Alan Castillo [address] [facility] [phone] Go to As needed, If symptoms worsen DISCHARGE MEDICATIONS: There are no discharge medications for this patient. (Comment: Please note this report has been produced using speech recognition software and may contain errors related to that system including errors in grammar, punctuation, and spelling, as well as words and phrases that may be inappropriate. If there are any questions or concerns please feel freeto contact the dictating provider for clarification.) Leni Anne DO (electronically signed) Emergency Medicine Provider Leni Anne DO 03/24/24 0936 documented in this [facility]12-20-2024 Emergency department Note* Mehreen Blood RN - 03/24/2024 4:01 AM EST Called [facility] nurse line, no answer. Will try again in 15min [id number] Discharge instructions* Discharge Instructions* Leni Anne DO - 03/24/2024 3:23 AM EST Alcohol Detox Facilities and Resources 1. [facility]- accepts Medicaid Drug and Alcohol rehabilitation [facility] [phone] 2. [facility] [phone] 3. [facility] detox 4. [facility] [phone] Need to call for a bed. If a bed is not available then they will put on wait list 5. [facility] addiction recovery [facility] [phone] 6. [facility] housing, counseling, education, job referral and coaching [phone] 7. Referral Line [phone] 8. [facility] Alcohol and drug counseling [phone] documented in this [facility]12-20-2024 NotePatient Outreach ([facility]) ELKIN VAUGHN ([id number]) 1985 M [facility] Date Time Provider Department 03/24/24 JOSELUIS STRAUSS During your visit today, we recorded the following information about you: Joseluis Strauss RN 03/24/2024 1:18 PM Signed ED Follow-Up Note Provider Action / FYI: Outreach was attempted with this patient via telephone regarding the patient's recent [facility] ED visit. Unable to leave a voicemail message Phone # in epic is incorrect.No further phone number available Call completed by: RN Patient seen in ED: Out of Network ED Contact made with Patient: No, unable to leave message. Third attempt - patient is unable to be reached. Joseluis Strauss RN March 24, 2024 1:17 PM Allergies As of Date: 03/24/2024 (No Known Allergies) Date Reviewed: 12/22/2023 Reviewed by: Mariah Rodriguez MA - Fully Assessed Reason for Visit: ACM LUANNE RN [[id number]] Cmt: ER f/u from 03/22 Prescriptions as of 03/24/2024 - clonazePAM (KLONOPIN) 0.5 mg tablet - gabapentin (NEURONTIN) 600 mg tablet Take 1 tablet by mouth three times a day. - omeprazole (PRILOSEC) 20 mg capsule Take 1 capsule by mouth two times a day. - famotidine (PEPCID) 20 mg tablet Take 1 tablet by mouth two times a day as needed (acid reflux). - Mirtazapine 45 mg disintegrating tablet - prazosin (MINIPRESS) 2 mg cap Take 2 mg by mouth once daily. 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 Pt states last use was this morning. Denies use of other substances at this time, but has previously used other drugs HISTORY OF PRESENT ILLNESS (Location/Symptom, Timing/Onset, Context/Setting, Quality, Duration, Modifying Factors, Severity) Note limiting factors. I wore appropriate PPE for the entirety of this encounter. HPI Elkin Vaughn is a 39 y.o. who presents to the emergency department with chief complaint of methamphetamine abuse and wanting possible detox. Patient states he is currently a resident of [facility] and did have a relapse and used methamphetamines or brought in by a friend. Did not have any alcohol use ever since he checked into [facility]. No other substances use. No suicidal or homicidal ideation. He was apparently told by staff and he does need to be evaluated in the ED for possible detox placement. Nursing Notes were reviewed. Limitations to history: None Outside historians: None REVIEW OF SYSTEMS Review of Systems Pertinent positives and negatives as per HPI PAST MEDICAL HISTORY Past Medical History: Diagnosis Date Bipolar 1 disorder ([facility]) OCD (obsessive compulsive disorder) Psychiatric problem PTSD (post-traumatic stress disorder) Schizo affective schizophrenia ([facility]) SURGICAL HISTORY No past surgical history on file. CURRENT MEDICATIONS There are no discharge medications for this patient. ALLERGIES Patient has no known allergies. FAMILY HISTORY No family history on file. SOCIAL HISTORY Social History Socioeconomic History Marital status: Single Tobacco Use Smoking status: Every Day Current packs/day: 1.00 Types: Cigarettes Substance and Sexual Activity Alcohol use: Not Currently Drug use: Yes PHYSICAL EXAM ED Triage Vitals [03/23/24 2325] Temp Heart Rate Resp BP (!) 35.6 C (96 F) 104 18 114/79 SpO2 Temp Source Heart Rate Source Patient Position 100 % Temporal Monitor Sitting BP Location FiO2 (%) Left arm -- Physical Exam Vitals and nursing note reviewed. Constitutional: General: He is not in acute distress. Appearance: He is well-developed. HENT: Head: Normocephalic and atraumatic. Eyes: Conjunctiva/sclera: Conjunctivae normal. Cardiovascular: Rate and Rhythm: Normal rate and regular rhythm. Heart sounds: No murmur heard. Pulmonary: Effort: Pulmonary effort is normal. No respiratory distress. Breath sounds: Normal breath sounds. Abdominal: Palpations: Abdomen is soft. Tenderness: There is no abdominal tenderness. Musculoskeletal: General: No swelling. Cervical back: Neck supple. Skin: General: Skin is warm and dry. Capillary Refill: Capillary refill takes less than 2 seconds. Neurological: Mental Status: He is alert and oriented to person, place, and time. Cranial Nerves: No cranial nerve deficit. Motor: No weakness. Gait: Gait normal. Psychiatric: Attention and Perception: Attention normal. Mood and Affect: Mood is elated. Speech: Speech is rapid and pressured. Behavior: Behavior is not agitated or aggressive. Behavior is cooperative. Thought Content: Thought content normal. DIAGNOSTIC RESULTS RADIOLOGY (Per Emergency Physician): Interpretation per the Radiologist below, if available at the time of this note: No orders to display LABS: Labs Reviewed BASIC METABOLIC PANEL - Abnormal Result Value SODIUM 139 POTASSIUM 3.9 CHLORIDE 109 (*) CARBON DIOXIDE 25 UREA NITROGEN 15 CREATININE 0.98 GLUCOSE 125 (*) CALCIUM 8.7 ANION GAP 5 eGFR >90.0 CK - Abnormal CK 539 (*) COMPLETE URINALYSIS WITH REFLEX TO CULTURE Narrative: The following orders were created for panel order Complete Urinalysis with reflex to Culture. Procedure Abnormality Status --------- ------ Complete Urinalysis[[id number]] Please view results for these tests on the individual orders. COMPLETE URINALYSIS All other labs were within normal range or not returned as of this dictation. EMERGENCY DEPARTMENT COURSE and DIFFERENTIAL DIAGNOSIS/MDM: Vitals: Vitals: 03/23/24 2325 BP: 114/79 BP Location: Left arm Patient Position: Sitting Pulse: 104 Resp: 18 Temp: (!) 35.6 C (96 F) TempSrc: Temporal SpO2: 100% Medications LORazepam (Ativan) tablet 1 mg (1 mg Oral Given 03/24/24201) acetaminophen (Tylenol) tablet 650 mg (650 mg Oral Given 03/24/24201) Patient presents ED with recent methamphetamine use wanting detox. He had reported prior history ofalcohol abuse but to me did not endorse any recent alcohol use. Clinically no signs of acute alcohol withdrawal. He has no hallucinations. He also denies any suicidal or homicidal ideation. Due to the reported methamphetamine use, we did check renal function and CK levels. There is no signs of any JEANNETTE or rhabdomyolysis. He is not febrile. Appears well- hydrated. Ambulatory in the ED and toleratingoral intake. I discussed with patient that he is suitable for outpatient follow-up and a list of local detox centers were provided to him. He was encouraged to return to [facility] to continue residence there. FINAL IMPRESSION 1. Methamphetamine abuse (CMS/[facility]) ([facility]) DISPOSITION Discharge 03/24/2024 03:22:59 AM PATIENT REFERRED TO: Alan Castillo [address] [facility] [phone] Go to As needed, If symptoms worsen DISCHARGE MEDICATIONS: There are no discharge medications for this patient. (Comment: Please note this report has been produced using speech recognition software and may contain errors related to that system including errors in grammar, punctuation, and spelling, as well as words and phrases that may be inappropriate. If there are any questions or concerns please feel freeto contact the dictating provider for clarification.) Leni Anne DO (electronically signed) Emergency Medicine Provider Leni Anne DO 03/24/24 0936 [id number] History of Present illness Narrative* Erma Spivey, [employer] WELLNESS MANAGER - 02/19/2024 8:32 AM EST Chief Complaint Patient presents with Feeling anxious/nervous/tense Elkin Vaughn, a 39 year old male, presents today with anxiety. Hx since childhood but ran out of medication recently. Worse in the morning and at night when he has time to think. Reports being homeless. 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 Social Hx: Social History Socioeconomic History Marital status: Single Tobacco Use Smoking status: Never Substance and Sexual Activity Alcohol use: No Allergy: Allergies Allergen Reactions No Known Drug Allergies Current Medications: reviewed and reconciled O: BP 121/67 Pulse 108 Temp 98.7 F (37.1 C) (Temporal) Resp 18 Wt 183 lb (83 kg) SpO2 100% no prior weight on file Unable to retrieve a serum creatinine GEN: NAD. Sitting upright. Pleasant, talkative, and appropriate. Flat affect HEENT: Conjunctiva pink, sclera anicteric. PERRL and EOMs intact. CV: RRR, S1 and S2 noted. No murmurs, clicks, rubs, or gallops. 2+ peripheral pulses radial. Lungs: CTA bilaterally. Resps even and non labored. Speaking in full sentences. Neuro: Conversant, logical to content, alert and oriented. Muscle strength 5/5. Gross cranial nerves intact. A/P 1. (F41.9) Anxiety (primary encounter diagnosis) Comment: Discussed medications, limitations in EC, f/u with behavioral health, worsening S&S and when to go to the ER. Plan: Propranolol HCl CR 60 MG CP24, hydrOXYzine (ATARAX) 25 MG tablet, PSYCHIATRY SERVICE REQUEST, ADULT 2. Instruction - See patient information. 3. Follow-up with Behavioral Health if symptoms persist or Go to ER if worsening. Patient verbalizes understanding and agrees with plan of care. Erma Spivey, MSN, BISCUIT MACHINE OPERATOR, FIREWALL ENGINEER-C, EMT-P * Jo Dasilva - 02/19/2024 8:19 AM EST Patient was identified by name and date of . Jo Dasilva documented in this [id number] Hospital Discharge instructions Patient Education 12/26/2023 18:28:16 Anxiety Reaction Anxiety Reaction Anxiety is the feeling we all get when we think something bad might happen. It is a normal responseto stress and usually causes only a mild reaction. When anxiety becomes more severe, it can interfere with daily life. In some cases, you may not even be aware of what it is you re anxious about. There may also be a genetic link or it may be a learned behavior in the home. Both psychological and physical triggers cause stress reaction. It's often a response to fear or emotional stress, real or imagined. This stress may come from home, family, work, or social relationships. During an anxiety reaction, you may feel: Helpless Nervous Depressed Irritable Your body may show signs of anxiety in many ways. You may experience: Dry mouth Shakiness Dizziness Weakness Trouble breathing Breathing fast (hyperventilating) Chest pressure Sweating Headache Nausea Diarrhea Tiredness Inability to sleep Sexual problems Home care Try to locate the sources of stress in your life. They may not be obvious. These may include: oDaily hassles of life (such as traffic jams, missed appointments, or car troubles) oMajor life changes, both good (new baby or job promotion) and bad (loss of job or loss of loved one) oOverload: feeling that you have too many responsibilities and can't take care of all of them at once oFeeling helpless or feeling that your problems are beyond what you re able to solve Notice how your body reacts to stress. Learn to listen to your body signals. This will help you take action before the stress becomes severe. When you can, do something about the source of your stress. (Avoid hassles, limit the amount of change that happens in your life at one time and take a break when you feel overloaded). Unfortunately, many stressful situations can't be avoided. It is necessary to learn how to better manage stress. There are many proven methods that will reduce your anxiety. These include simple things like exercise, good nutrition, and adequate rest. Also, there are certain techniques that are helpful: oRelaxation oBreathing exercises oVisualization oBiofeedback oMeditation For more information about this, consult your healthcare provider or go to a local bookstore and review the many books and tapes available on this subject. Follow-up care If you feel that your anxiety is not responding to self-help measures, contact your healthcare provider or make an appointment with a counselor. You may need short-term psychological counseling and temporary medicine to help you manage stress. Call 911 Call 911 if any of these happen: Trouble breathing Confusion Drowsiness or trouble wakening Fainting or loss of consciousness Rapid heart rate Seizure New chest pain that becomes more severe, lasts longer, or spreads into your shoulder, arm, neck, jaw, or back When to seek medical advice Call your healthcare provider right away if any of these happen: Your symptoms get worse Severe headache not relieved by rest and mild pain reliever [id number] [employer]. [address] [place] [address]. All rights reserved. This information is not intended as a substitute for professional medical care. Always follow [facility] professional's instructions. 12/26/2023 18:28:11 Medical Screening Exam, Nonemergent Medical Screening Exam: No Emergency You have had a medical screening exam. The results show that you don t have a condition that needs to be treated in the emergency department. You can safely wait until you can see your healthcare provider for evaluation or treatment. It is up to you to make an appointment for follow-up care. Medical emergencies If you think you have a medical emergency, please come to the emergency department. That s what we are here for. A medical emergency might be severe pain. It might be a condition that gets worse. Or it might be problems with a . The emergency department is open to all who need treatment. But if you don t think you have a serious or life-threatening problem, try these other choices. If you have a primary care doctor: Call your doctor before coming to the emergency department. After office hours, someone from your doctor s office is on-call by phone. The person on-call may be able to give you advice over the phone on how to take care of the problem You may be able to get an appointment to see your doctor. If you don t have a primary care doctor: Call the referral doctor or clinic shown below during office hours. You should be able to make an appointment to be seen. If you aren t sure whether you are having an emergency, you can always return to the emergency department to be looked at. Phone advice from the emergency department We are here 24 hours a day to give emergency care. But this hospital does not give phone advice formedical conditions. If you need advice for a condition that can t wait to be seen by your doctor, you will need to come back to this facility in person. [phone] [employer] [address] [place] [address]. All rights reserved. This information is not intended as a substitute for professional medical care. Always follow [facility] professional's instructions. Follow Up Care 12/26/2023 17:36:40 With:ALAN CASTILLO MD Address: [address] [place] [id number]- When:2-[address] [facility] 09-22-2024 Emergency department Discharge summary Discharge Instructions Thank you for allowing [facility] to assist you with your healthcare needs. The following is importantdischarge information regarding your hospital visit. Diagnosis from Today's Visit History of anxiety state Well adult What to Do Next Instructions from Your Care Team No qualifying data available. Post Acute Orders No qualifying data available. You Need to Schedule the Following Appointments Follow Up with ALAN CASTILLO MD When:Within 2-4 days Where:[facility] [place] [address]- Allergies NKA Medications Please ask your primary doctor or pharmacist before taking any other medication not listed, including over the counter drugs, herbal medications, vitamins and or supplements as they may interact withyour home medications. What How Much When Instructions Last Dose New hydrOXYzine (Vistaril 25 mg oral capsule) 1 cap by mouth Four (4) times a day as needed for as needed for anxiety Duration: 5 Days Printed Prescription Please take this list to your next doctor s visit. Bring all medications you take, including over the counter medications, herbals and other supplements with you to your doctor s visit. Patients and families are reminded to discard old lists and to update any records with all medication providers or retail pharmacies. Education Materials Anxiety Reaction Anxiety is the feeling we all get when we think something bad might happen. It is a normal responseto stress and usually causes only a mild reaction. When anxiety becomes more severe, it can interfere with daily life. In some cases, you may not even be aware of what it is you re anxious about. There may also be a genetic link or it may be a learned behavior in the home. Both psychological and physical triggers cause stress reaction. It's often a response to fear or emotional stress, real or imagined. This stress may come from home, family, work, or social relationships. During an anxiety reaction, you may feel: Helpless Nervous Depressed Irritable Your body may show signs of anxiety in many ways. You may experience: Dry mouth Shakiness Dizziness Weakness Trouble breathing Breathing fast (hyperventilating) Chest pressure Sweating Headache Nausea Diarrhea Tiredness Inability to sleep Sexual problems Home care Try to locate the sources of stress in your life. They may not be obvious. These may include: oDaily hassles of life (such as traffic jams, missed appointments, or car troubles) oMajor life changes, both good (new baby or job promotion) and bad (loss of job or loss of loved one) oOverload: feeling that you have too many responsibilities and can't take care of all of them at once oFeeling helpless or feeling that your problems are beyond what you re able to solve Notice how your body reacts to stress. Learn to listen to your body signals. This will help you take action before the stress becomes severe. When you can, do something about the source of your stress. (Avoid hassles, limit the amount of change that happens in your life at one time and take a break when you feel overloaded). Unfortunately, many stressful situations can't be avoided. It is necessary to learn how to better manage stress. There are many proven methods that will reduce your anxiety. These include simple things like exercise, good nutrition, and adequate rest. Also, there are certain techniques that are helpful: oRelaxation oBreathing exercises oVisualization oBiofeedback oMeditation For more information about this, consult your healthcare provider or go to a local bookstore and review the many books and tapes available on this subject. Follow-up care If you feel that your anxiety is not responding to self-help measures, contact your healthcare provider or make an appointment with a counselor. You may need short-term psychological counseling and temporary medicine to help you manage stress. Call 911 Call 911 if any of these happen: Trouble breathing Confusion Drowsiness or trouble wakening Fainting or loss of consciousness Rapid heart rate Seizure New chest pain that becomes more severe, lasts longer, or spreads into your shoulder, arm, neck, jaw, or back When to seek medical advice Call your healthcare provider right away if any of these happen: Your symptoms get worse Severe headache not relieved by rest and mild pain reliever [phone] [employer] [address] [place] [address]. All rights reserved. This information is not intended as a substitute for professional medical care. Always follow [facility] professional's instructions. Medical Screening Exam: No Emergency You have had a medical screening exam. The results show that you don t have a condition that needs to be treated in the emergency department. You can safely wait until you can see your healthcare provider for evaluation or treatment. It is up to you to make an appointment for follow-up care. Medical emergencies If you think you have a medical emergency, please come to the emergency department. That s what we are here for. A medical emergency might be severe pain. It might be a condition that gets worse. Or it might be problems with a . The emergency department is open to all who need treatment. But if you don t think you have a serious or life-threatening problem, try these other choices. If you have a primary care doctor: Call your doctor before coming to the emergency department. After office hours, someone from your doctor s office is on-call by phone. The person on-call may be able to give you advice over the phone on how to take care of the problem You may be able to get an appointment to see your doctor. If you don t have a primary care doctor: Call the referral doctor or clinic shown below during office hours. You should be able to make an appointment to be seen. If you aren t sure whether you are having an emergency, you can always return to the emergency department to be looked at. Phone advice from the emergency department We are here 24 hours a day to give emergency care. But this hospital does not give phone advice formedical conditions. If you need advice for a condition that can t wait to be seen by your doctor, you will need to come back to this facility in person. [phone] [employer] [address] [place] [address], [place] [address]. All rights reserved. This information is not intended as a substitute for professional medical care. Always follow yourhealthcare professional's instructions. Additional Information VACCINATE! IT SAVES LIVES! Members of the community who have not yet received the COVID-19 vaccine and would like to receive it can visit one of [facility] vaccine clinics. There are many vaccine clinic locations within the [facility]. For locations and available times, please visit [email or web address] It is important to note that some COVID mobile vaccine clinics are held outdoors and may be canceled in rainy or stormy conditions. To learn more about pediatric vaccinations (ages 5-11), we invite you to visit the [facility] webpage. [email or web address] learn more about the COVID-19 vaccine, we invite you to visit the CDC website for a list of frequently asked questions. https://www.cdc.gov/coronavirus/2019-ncov/vaccines/faq.html [facility] Patient Portal Access Instructions: Stay connected with your healthcare team and access your personal medical information anytime with the [facility] Patient Portal. If you would like a full copy of your medical records please contact the [facility] Medical Records Department Wednesday through Wednesday between 8a.m. and 4:30p.m. Please follow the directions below to access the portal: 1.Access the email account you provided upon registration to the the [facility].2.Look for an invitation email from [facility].3.Open the email and access the invitation link: Accept Invitation to [employer]4.Fill in the required singh to create your account. Sign into [email or web address] with your username and password that you created in the above steps to stay up to date. You can then view a summary of results, a summary of your visits, and the ability to download your summaries to your computer or send the information securely to a physician. Remember that your healthcare information is confidential, so carefully consider who you will allow to register on the [facility] Patient Portal for access to your information. You can also access the [facility] Patient Portal on the [employer]. Simply click on Health Records under [employer] and then click on the [employer] logo. HOW TO SAFELY DISPOSE OF PRESCRIPTION MEDICATIONS Please use one of the following methods to safely dispose of your unused medications. 1.Use a drug disposal kit: the drug disposal pouch allows you to safely discard your old and unuseddrugs. Ask your nurse to give you one when you are discharged.2.Visit a local take-back location: Many local pharmacies and police departments have programs that collect old and unwanted prescriptiondrugs. Call your local pharmacy or go to http://[employer]/5Y3Jc5i to find one close to you.3.Make use of household items: Use cat litter or old coffee grounds to dispose medications if other options arenot available. Mix your drugs with these household products, seal them in an airtight container andthrow it into the garbage. Call [facility]: [phone] to be sure your drugs can be disposed of in this way. Some medicines may require a different approach.4.Never flush your medications down the toilet. IF YOU HAVE BEEN PRESCRIBED AN OPIOIDS FOR PAIN If you have been prescribed an opioid (such as hydrocodone, oxycodone or morphine), it is critical to understand the possible side effects and risks of opioid pain medications. Even when taken as directed, opioids can have several side effects including: Tolerance, meaning you might need to take more of a medication for the same pain relief. Nausea, vomiting and/or constipation. Sleepiness, dizziness, dry mouth, confusion, depression or itching. Physical dependence, meaning you have withdrawal symptoms when a medication is stopped ? this can develop within a few days. KNOW YOUR RESPONSIBILITIES It is important to know exactly how much and how often to take the opioid pain medications you are prescribed. Never take opioids in higher amounts or more often than prescribed. Do not combine opioids with alcohol or other drugs that cause drowsiness, such as benzodiazepines, also known as benzos,including diazepam and alprazolam, muscle relaxants or sleep aids. Never sell or share prescriptionopioids. This is illegal. Store opioids in a secure place and out of reach of others (including children, family, friends and visitors). The last page(s) of this document has been signed and retained as a CHART COPY Signatures Patient Education Materials Anxiety Reaction Medical Screening Exam, Nonemergent Medication Leaflets My discharge plan and instructions have been reviewed and explained to me and I,ELKIN VAUGHN understand my current condition and have read and understand these discharge instructions. I have receiveda written copy of the plan/instructions. If I have questions, I am aware that I should contact my do ctor. Patient/Behavioral Modification Assistant Signature: Date/Time: Relationship to Patient: Witness Name/Signature: Date/Time: [facility]09-18-2024 NoteHNO ID: [id number] Author: GILL JASSO MD Service: ? Author Type: Physician Type: Progress Notes Filed: 12/22/2023 17:25 Note Text: Patient presents with: Pain (foot) HPI: Foot and back pain: Duration: back started hurting during psychiatric admission 4 weeks ago. Feet have been bothering him for the last few days. Location: bilateral feet Character: sharp and shooting Radiation: No. Aggravating: standing and walking Relieving: rest Pain relievers: none. Associated: kidneys shut down sometime during recent ER or admission, heartburn is flared Pertinent negatives: Denies numbness, weakness, incontinence, dysuria, urinary frequency, blood in urine, fever, known injury, swelling [place] [facility] psychiatric hospitalization from [place] emergency room to [facility] 11/24/2023 including chemical and physical restraint. MEDICATIONS: None clonazePAM (KLONOPIN) 0.5 mg tablet (Patient not taking: Reported on 12/22/2023) gabapentin (NEURONTIN) 600 mg tablet Take 1 tablet by mouth three times a day. (Patient not taking: Reported on 12/22/2023) omeprazole (PRILOSEC) 20 mg capsule Take 1 capsule by mouth two times a day. (Patient not taking: Reported on 12/22/2023) famotidine (PEPCID) 20 mg tablet Take 1 tablet by mouth two times a day as needed (acid reflux). (Patient not taking: Reported on 08/11/2023) Mirtazapine 45 mg disintegrating tablet (Patient not taking: Reported on 12/22/2023) prazosin (MINIPRESS) 2 mg cap Take 2 mg by mouth once daily. (Patient not taking: Reported on 12/22/2023) ALLERGIES: ALLERGIES No Known Allergies VITALS: BP 122/70 Pulse 86 Temp 36.6 ?C (97.8 ?F) Resp 16 Wt 84.5 kg (186 lb 4.6 oz) SpO2 97% BMI 25.27 kg/m? PHYSICAL EXAM: GEN: no acute distress, arousal varies from alert to drowsy HEENT: wearing sunglasses, bruising around the eye, MMM NECK: supple, no lymphadenopathy, no thyromegaly HEART: regular rate, regular rhythm, no murmurs LUNGS: clear to auscultation, no wheezes or crackles, no increased WOB ABD: soft, non-distended, no masses palpated, non-tender EXT: no clubbing, no cyanosis, trace sock line edema FEET: No erythema, edema, ecchymosis, or deformity. Tender balls of the feet midline. No focal bony tenderness. Fine touch sensation intact. Capillary refill less than 2 seconds. Normal gait. BACK: Normal curvature of spine. No midline tenderness. No paraspinal tenderness. Straight leg test negative. Deep tendon reflexes 2+/4 at patellas. Normal lower extremity strength. PSYCH: Labile mood, often drowsy with slurred speech with intermittent mild agitation, poor concentration, no pressured speech. ASSESSMENT/PLAN: 1. Acute midline low back pain without sciatica - ICD9: 724.2, ICD10: M54.50 (primary diagnosis) 2. Foot pain, bilateral - ICD9: 729.5, ICD10: M79.671, M79.672 - UA DIP, URINE (POC) - negative/normal - ACETAMINOPHEN 325 MG TABLET Scheduled follow up with primary care. 3. Heartburn - ICD9: 787.1, ICD10: R12 Currently off all medications. He should have omeprazole refills at the pharmacy and resume taking it. 4. Schizoaffective disorder, unspecified type (HCC) - ICD9: 295.70, ICD10: F25.9 Reports he does not know if he had a follow up scheduled after psychiatric discharge. Gill Jasso, [facility]09-18-2024 History of Present illness Narrative* Gill Jasso MD - 12/22/2023 4:43 PM EDT Patient presents with: Pain (foot) HPI: Foot and back pain: Duration: back started hurting during psychiatric admission 4 weeks ago. Feet have been bothering him for the last few days. Location: bilateral feet Character: sharp and shooting Radiation: No. Aggravating: standing and walking Relieving: rest Pain relievers: none. Associated: kidneys shut down sometime during recent ER or admission, heartburn is flared Pertinent negatives: Denies numbness, weakness, incontinence, dysuria, urinary frequency, blood in urine, fever, known injury, swelling [place] [facility] psychiatric hospitalization from [place] emergency room to [facility] 11/24/2023 including chemical and physical restraint. MEDICATIONS: None clonazePAM (KLONOPIN) 0.5 mg tablet (Patient not taking: Reported on 12/22/2023) gabapentin (NEURONTIN) 600 mg tablet Take 1 tablet by mouth three times a day. (Patient not taking:Reported on 12/22/2023) omeprazole (PRILOSEC) 20 mg capsule Take 1 capsule by mouth two times a day. (Patient not taking: Reported on 12/22/2023) famotidine (PEPCID) 20 mg tablet Take 1 tablet by mouth two times a day as needed (acid reflux). (Patient not taking: Reported on 08/11/2023) Mirtazapine 45 mg disintegrating tablet (Patient not taking: Reported on 12/22/2023) prazosin (MINIPRESS) 2 mg cap Take 2 mg by mouth once daily. (Patient not taking: Reported on 12/22/2023) ALLERGIES: ALLERGIES No Known Allergies VITALS: BP 122/70 Pulse 86 Temp 36.6 C (97.8 F) Resp 16 Wt 84.5 kg (186 lb 4.6 oz) SpO2 97% BMI25.27 kg/m PHYSICAL EXAM: GEN: no acute distress, arousal varies from alert to drowsy HEENT: wearing sunglasses, bruising around the eye, MMM NECK: supple, no lymphadenopathy, no thyromegaly HEART: regular rate, regular rhythm, no murmurs LUNGS: clear to auscultation, no wheezes or crackles, no increased WOB ABD: soft, non-distended, no masses palpated, non-tender EXT: no clubbing, no cyanosis, trace sock line edema FEET: No erythema, edema, ecchymosis, or deformity. Tender balls of the feet midline. No focal bonytenderness. Fine touch sensation intact. Capillary refill less than 2 seconds. Normal gait. BACK: Normal curvature of spine. No midline tenderness. No paraspinal tenderness. Straight leg testnegative. Deep tendon reflexes 2+/4 at patellas. Normal lower extremity strength. PSYCH: Labile mood, often drowsy with slurred speech with intermittent mild agitation, poor concentration, no pressured speech. ASSESSMENT/PLAN: 1. Acute midline low back pain without sciatica - ICD9: 724.2, ICD10: M54.50 (primary diagnosis) 2. Foot pain, bilateral - ICD9: 729.5, ICD10: M79.671, M79.672 - UA DIP, URINE (POC) - negative/normal - ACETAMINOPHEN 325 MG TABLET Scheduled follow up with primary care. 3. Heartburn - ICD9: 787.1, ICD10: R12 Currently off all medications. He should have omeprazole refills at the pharmacy and resume taking it. 4. Schizoaffective disorder, unspecified type (HCC) - ICD9: 295.70, ICD10: F25.9 Reports he does not know if he had a follow up scheduled after psychiatric discharge. Gill Jasso MD [facility] History of Present illness Narrative* Salena Tobar MA - 12/15/2023 11:30 AM EDT POPULATION HEALTH NAVIGATION OUTREACH Action/FYI Patient is on [employer] [facility] Outreach List and needs appointment to address : Pneumococcal Vaccine(1 of 2 - PCV) Spirometry Depression Screening Anxiety Screening Hepatitis C Screening HIV Screening Hepatitis B Vaccine(1 of 3 - 19+ 3-dose series) Covid-19 Vaccine( season) Influenza Vaccine(1) Patient due for: Physical Annual Wellness Visit Flu Vaccine Attempted to reach patient, phone not in service, unable to leave message. Sent Snapguide message. Reason for Outreach [facility] Care Gaps due: Physical Annual Wellness Visit Flu Vaccine Patient Contacted: Unable or unnecessary to reach patient: Unable to leave message GripeOhart message sent Navigation Signature: Salena Tobar MA December 15, 2023 11:30 AM documented [facility] History of Present illness Narrative* Shyala Loya RN - 12/13/2023 2:43 PM EDT [facility] Review Provider Action / FYI: Invalid number. Upon review of patient chart, does patient meet exclusion criteria? 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 Sent Baynotehart message. No HCC Reason for Outreach Care Gap/HCC or Scheduling Wellness Visits Care Gaps due: Medicare Annual Wellness Visit Patient Contacted: Unable or unnecessary to reach patient: Unable to leave message MyChart message sent Navigation Signature: Salena Tobar MA October 26, 2023 9:07 AM documented in [facility] encounterGreen [facility] History of Present illness Narrative* Joseluis Strauss RN - 10/12/2023 2:03 PM EDT ED Follow-Up Note Provider Action / FYI: Outreach was attempted with this patient via telephone regarding the patient's recent [facility] ED visit. The phone is disconnected / wrong number; unable to leave a voicemail message. A MyChart note sent requesting patient responds accordingly. Patient seen in ED: Out of Network ED Contact made with Patient: No, unable to leave message. Third attempt - patient is unable to be reached. Joseluis Strauss RN October 12, 2023 2:08 PM documented in this encounterGreen [facility]05-[facility] Hospital Discharge instructions Patient Education 08/25/2023 19:37:56 Abrasions Abrasions Abrasions are skin scrapes. Their treatment depends on how large and deep the abrasion is. Home care You may be prescribed an antibiotic cream or ointment to apply to the wound. This helps prevent infection. Follow instructions when using this medicine. General care To care for the abrasion, do the following each day for as long as directed by your healthcare provider. oIf you were given a bandage, change it once a day. If your bandage sticks to the wound, soak it inwarm water until it loosens. oWash the area with soap and warm water. You may do this in a sink or under a tub faucet or shower.Rinse off the soap. Then pat the area dry with a clean towel. oIf antibiotic ointment or cream was prescribed, reapply it to the wound as directed. Cover the wound with a fresh nonstick bandage. If the bandage becomes wet or dirty, change it as soon as possible. oSome antibiotic ointments or cream can cause an allergic reaction or dermatitis. This may cause redness, itching and or hives. If this occurs, stop using the ointment immediately and wash off any remaining ointment. You may need to take some allergy medicine to relieve symptoms. You may use acetaminophen or ibuprofen to control pain unless another pain medicine was prescribed.Talk with your healthcare provider before using these medicines if you have chronic liver or kidneydisease or ever had a stomach ulcer or GI bleeding. Don t use ibuprofen in children younger than six months old. Most skin wounds heal within 10 days. But an infection may occur even with treatment. So it s important to watch the wound for signs of infection as listed below. Follow-up care Follow up with your healthcare provider, or as advised. When to seek medical advice Call your healthcare provider right away if any of these occur: Fever of 100.4 F (38 C) or higher, or as directed by your healthcare provider Increasing pain, redness, swelling, or drainage from the wound Bleeding from the wound that does not stop after a few minutes of steady, firm pressure Decreased ability to move any body part near the wound [id number] [employer]. [address] [place] [address]. All rights reserved. This information is not intended as a substitute for professional medical care. Always follow yourhealthcare professional's instructions. 08/25/2023 19:37:37 Head Injury (Adult) Head Injury (Adult) You have a head injury. It does not appear serious at this time. But symptoms of a more serious problem, such as a mild brain injury (concussion) or bruising or bleeding in the brain, may appear later. For this reason, you or someone caring for you will need to watch for the symptoms listed below. Once you re home, also be sure to follow any care instructions you re given. Home care Watch for the following symptoms Seek emergency medical care if you have any of these symptoms over the next hours to days: Headache Nausea or vomiting Dizziness Sensitivity to light or noise Unusual sleepiness or grogginess Trouble falling asleep Personality changes Vision changes Memory loss Confusion Trouble walking or clumsiness Loss of consciousness (even for a short time) Inability to be awakened Stiff neck Weakness or numbness in any part of the body Seizures General care If you were prescribed medicines for pain, use them as directed. Note: Don t take other medicines for pain without talking to your provider first. To help reduce swelling and pain, apply a cold source to the injured area for up to 20 minutes at atime. Do this as often as directed. Use a cold pack or bag of ice wrapped in a thin towel. Never apply a cold source directly to the skin. If you have cuts or scrapes as a result of your head injury, care for them as directed. For the next 24 hours (or longer, if instructed): oDon t drink alcohol or use sedatives or other medicines that make you sleepy. oDon t drive or operate machinery. oDon t do anything strenuous, such as heavy lifting or straining. oLimit tasks that require concentration. This includes reading, using a smartphone or computer, watching TV, and playing video games. oDon t return to sports or other activities that could result in another head injury. Follow-up care Follow up with your healthcare provider, or as directed. If imaging tests were done, they will be reviewed by a doctor. You will be told the results and any new findings that may affect your care. When to seek medical advice Call your healthcare provider right away if any of these occur: Pain doesn t get better or worsens New or increased swelling or bruising Fever of 100.4 F (38 C) or higher, or as directed by your provider Increased redness, warmth, drainage, or bleeding from the injured area Fluid drainage or bleeding from the nose or ears Any depression or bony abnormality in the injured area Persistent confusion or lethargy Bruising behind the ears or bruising around the eyes [phone] [employer] [address] [place] [address]. All rights reserved. This information is not intended as a substitute for professional medical care. Always follow yourhealthcare professional's instructions. Follow Up Care 08/25/2023 18:15:23 With:[facility] Address: [address] [place] [phone] Business (1) When:2-4 days Comments:Follow-up as neededReturn to ED if symptoms worsen With:PATIENT PHYSICIAN Address:Unknown When:2-4 days [facility] 05-22-2024 Emergency department Discharge summary Discharge Instructions Thank you for allowing [facility] to assist you with your healthcare needs. The following is importantdischarge information regarding your hospital visit. What to Do Next Instructions from Your Care Team No qualifying data available. Post Acute Orders No qualifying data available. You Need to Schedule the Following Appointments Follow Up with [facility] ([facility]) When: When:Within 2-4 days Where:[address] [place] [phone] [employer] (1) Why: Follow-up as needed Return to ED if symptoms worsen Follow Up with PATIENT PHYSICIAN When: When:Within 2-4 days Allergies NKA Medications Please ask your primary doctor or pharmacist before taking any other medication not listed, including over the counter drugs, herbal medications, vitamins and or supplements as they may interact withyour home medications. Please take this list to your next doctor s visit. Bring all medications you take, including over the counter medications, herbals and other supplements with you to your doctor s visit. Patients and families are reminded to discard old lists and to update any records with all medication providers or retail pharmacies. Education Materials Abrasions Abrasions are skin scrapes. Their treatment depends on how large and deep the abrasion is. Home care You may be prescribed an antibiotic cream or ointment to apply to the wound. This helps prevent infection. Follow instructions when using this medicine. General care To care for the abrasion, do the following each day for as long as directed by your healthcare provider. oIf you were given a bandage, change it once a day. If your bandage sticks to the wound, soak it inwarm water until it loosens. oWash the area with soap and warm water. You may do this in a sink or under a tub faucet or shower.Rinse off the soap. Then pat the area dry with a clean towel. oIf antibiotic ointment or cream was prescribed, reapply it to the wound as directed. Cover the wound with a fresh nonstick bandage. If the bandage becomes wet or dirty, change it as soon as possible. oSome antibiotic ointments or cream can cause an allergic reaction or dermatitis. This may cause redness, itching and or hives. If this occurs, stop using the ointment immediately and wash off any remaining ointment. You may need to take some allergy medicine to relieve symptoms. You may use acetaminophen or ibuprofen to control pain unless another pain medicine was prescribed.Talk with your healthcare provider before using these medicines if you have chronic liver or kidneydisease or ever had a stomach ulcer or GI bleeding. Don t use ibuprofen in children younger than six months old. Most skin wounds heal within 10 days. But an infection may occur even with treatment. So it s important to watch the wound for signs of infection as listed below. Follow-up care Follow up with your healthcare provider, or as advised. When to seek medical advice Call your healthcare provider right away if any of these occur: Fever of 100.4 F (38 C) or higher, or as directed by your healthcare provider Increasing pain, redness, swelling, or drainage from the wound Bleeding from the wound that does not stop after a few minutes of steady, firm pressure Decreased ability to move any body part near the wound [phone] [employer] [address] [place], [place] [id number]. All rights reserved. This information is not intended as a substitute for professional medical care. Always follow yourhealthcare professional's instructions. Head Injury (Adult) You have a head injury. It does not appear serious at this time. But symptoms of a more serious problem, such as a mild brain injury (concussion) or bruising or bleeding in the brain, may appear later. For this reason, you or someone caring for you will need to watch for the symptoms listed below. Once you re home, also be sure to follow any care instructions you re given. Home care Watch for the following symptoms Seek emergency medical care if you have any of these symptoms over the next hours to days: Headache Nausea or vomiting Dizziness Sensitivity to light or noise Unusual sleepiness or grogginess Trouble falling asleep Personality changes Vision changes Memory loss Confusion Trouble walking or clumsiness Loss of consciousness (even for a short time) Inability to be awakened Stiff neck Weakness or numbness in any part of the body Seizures General care If you were prescribed medicines for pain, use them as directed. Note: Don t take other medicines for pain without talking to your provider first. To help reduce swelling and pain, apply a cold source to the injured area for up to 20 minutes at atime. Do this as often as directed. Use a cold pack or bag of ice wrapped in a thin towel. Never apply a cold source directly to the skin. If you have cuts or scrapes as a result of your head injury, care for them as directed. For the next 24 hours (or longer, if instructed): oDon t drink alcohol or use sedatives or other medicines that make you sleepy. oDon t drive or operate machinery. oDon t do anything strenuous, such as heavy lifting or straining. oLimit tasks that require concentration. This includes reading, using a smartphone or computer, watching TV, and playing video games. oDon t return to sports or other activities that could result in another head injury. Follow-up care Follow up with your healthcare provider, or as directed. If imaging tests were done, they will be reviewed by a doctor. You will be told the results and any new findings that may affect your care. When to seek medical advice Call your healthcare provider right away if any of these occur: Pain doesn t get better or worsens New or increased swelling or bruising Fever of 100.4 F (38 C) or higher, or as directed by your provider Increased redness, warmth, drainage, or bleeding from the injured area Fluid drainage or bleeding from the nose or ears Any depression or bony abnormality in the injured area Persistent confusion or lethargy Bruising behind the ears or bruising around the eyes [phone] [employer] [address] [place] [address]. All rights reserved. This information is not intended as a substitute for professional medical care. Always follow yourhealthcare professional's instructions. Additional Information VACCINATE! IT SAVES LIVES! Members of the community who have not yet received the COVID-19 vaccine and would like to receive it can visit one of [facility] vaccine clinics. There are many vaccine clinic locations within the [facility]. For locations and available times, please visit www.gettheshot.coronavirus.[place].gov/. It is important to note that some COVID mobile vaccine clinics are held outdoors and may be canceled in rainy or stormy conditions. To learn more about pediatric vaccinations (ages 5-11), we invite you to visit the [facility] webpage. https://www.[email or web address].org/pages/[email or web address]-Srwnn-Lmyepignbze-Xgetzkzduh-Emevq-[email or web address] stions.htmlTo learn more about the COVID-19 vaccine, we invite you to visit the CDC website for a list of frequently asked questions. https://www.cdc.gov/coronavirus/2019-ncov/vaccines/faq.html [facility] Patient Portal Access Instructions: Stay connected with your healthcare team and access your personal medical information anytime with the [facility] Patient Portal. If you would like a full copy of your medical records please contact the [facility] Medical Records Department Wednesday through Wednesday between 8a.m. and 4:30p.m. Please follow the directions below to access the portal: 1.Access the email account you provided upon registration to the the [facility].2.Look for an invitation email from [facility].3.Open the email and access the invitation link: Accept Invitation to [facility]4.Fill in the required singh to create your account. Sign into www.Koding with your username and password that you created in the above steps to stay up to date. You can then view a summary of results, a summary of your visits, and the ability to download your summaries to your computer or send the information securely to a physician. Remember that your healthcare information is confidential, so carefully consider who you will allow to register on the [facility] Patient Portal for access to your information. You can also access the [facility] Patient Portal on the [employer]. Simply click on Health Records under [employer] and then click on the [facility] logo. HOW TO SAFELY DISPOSE OF PRESCRIPTION MEDICATIONS Please use one of the following methods to safely dispose of your unused medications. 1.Use a drug disposal kit: the drug disposal pouch allows you to safely discard your old and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 attack Severe dextromethorphan use disorder Home Medications gabapentin 100 mg capsule 100 mg PO TID 09/20/22 [History Last Taken Unknown] prazosin 1 mg capsule 2 mg PO QHS 09/20/22 [History Last Taken Unknown] clonazepam 0.5 mg tablet 0.5 mg PO DAILY 12/07/22 [History Last Taken Unknown] Allergy/AdvReac Type Severity Reaction Status Date / Time No Known Allergies Allergy Verified 11/23/22 20:17 Social History (Updated 12/07/22 @ 07:[address] Monty Mendoza MD) household members: none and other details: Patient reports he has children and recently went degeneration so he could Smoking Status: Current every day smoker tobacco type: cigarettes ROS ROS ED Constitutional Constitutional ED: Denies chills, fever(s), subjective, sweats or weight loss Eyes Eyes: Denies blurry vision, change in vision or diplopia ENT ENT ED: Denies ear pain, rhinorrhea or sore throat Cardiovascular Cardiovascular: Denies chest pain, orthopnea, palpitations, paroxysmal nocturnaldyspnea or racing heartbeat Respiratory/Chest Respiratory/Chest: Denies cough, dyspnea, dyspnea on exertion, orthopnea or paroxysmal nocturnal dyspnea Gastrointestinal Gastrointestinal: Denies abdominal pain, constipation, diarrhea, melena, nausea or vomiting Genitourinary Genitourinary ED: Denies dysuria, hematuria or urinary frequency Musculoskeletal Musculoskeletal: Denies arthralgias, back pain, myalgias or neck pain Integumentary Denies rash Neurologic Neurologic: Denies headache(s), paresthesias or weakness Psychiatric Psychiatric: Reports anxiety; Denies depression or suicidal ideation Hematologic/Lymphatic Hematologic/Lymphatic: Reports systems reviewed and no addt'l complaints, exceptas documented EXAM Physical Exam Const Vital Signs: 12/07/22 07:17 12/07/22 07:24 12/07/22 07:57 Temperature 97.1 F L Temperature Source Temporal Pulse Rate 120 H 83 Respiratory Rate 18 Respiratory Pattern Normal Blood Pressure 114/81 H Blood Pressure Mean 92 Pulse Ox 95 Oxygen Delivery Method Room Air Positive well nourished and well developed Constitutional Narrative: There is minimal eye contact. Patient is fidgety. Patient does not appear toxic. General Appearance ED: well developed and NAD; Negative for pallor HEENT Reports moist mucous membranes HEENT Narrative: Head is normocephalic and atraumatic. Ears are normal. TMs are normal. Nares patent. Posterior pharynx out erythema or exudate. Eyes PERRL and EOMs intact bilaterally Eyes Narrative: There is no night segments. General Eye ED: Negative for pale conjunctiva or scleral icterus Neck no lymphadenopathy, supple and no JVD Resp normal respiratory effort and clear to auscultation bilaterally Cardio regular rhythm, S1 normal heart sound, S2 normal heart sound and no murmurs Rate: tachycardic GI normal to inspection, nondistended, normoactive bowel sounds, non-tender, non-distended and no masses; Negative for hepatosplenomegaly Back/Spine no CVA tenderness Extremity normal to inspection General Extremety ED: Negative for edema or tenderness General Extremity: Negative for edema Neuro oriented x3, CN's II-XII intact bilaterally and no sensory deficits noted Neuro Narrative: Patient has hyperreflexia bicep, brachialis, patella and ankle reflex. There is3-6 beats of clonus at the ankles. Sensorium / Orientation: alert Psych Psych Narrative: Patient with a flat affect. Psychomotor skills are slightly increased. Patientis fidgety. There is minimal eye contact. Patient's thought process has loose association and at times is tangential. Patient was asked numerous times to explain himself since it was difficult to follow. He did become agitated because of the repeat questioning. He was informed that purpose is to understand so that I am able to help him. This alleviated his agitation. Skin no rashes or lesions noted, no wounds and skin turgor normal General Skin Exam: Negative for jaundice or pallor MDM MDM MDM Narrative Medical decision making narrative: Surgery was asked to call the counseling center to verify patient's history. He consented to call back. They verified that he only got a week supply of gabapentin, Presalin and Klonopin. He does have an appointment to see his counselor tomorrow. Since patient has symptoms of withdrawal he was given 5 mg of Valium p.o. I was informed by nurse he felt much better after taking the medicine. Will observe since diazepam with drawl is potentially life-threatening. Treatment and Re-Evaluation :: Patient was reassessed at 0825. Patient is no longer fidgety. He is no longer tachycardic. He was informed that the Valium has a half-life of 197 hours. This will hold him over until he sees his therapist tomorrow. Discharge Plan Triage Chief Complaint: General Illness ED Provider: Monty Mendoza Dx/Rx/DC Orders Clinical Impression: Medication addiction, episodic, Anxiety, Sinus tachycardia seen on clinical research monitor, Benzodiazepine withdrawal without complication, Medication care plan discussed with patient Instructions: ED Benzodiazepine Withdrawal Prescriptions: No Action prazosin 1 mg capsule 2 mg PO QHS gabapentin 100 mg capsule 100 mg PO TID clonazepam 0.5 mg tablet 0.5 mg PO DAILY Primary Care Provider: Alan Castillo Referrals: Counseling,Center [Group of Physicians] - Keep Suri appointment Alan Castillo MD [Primary Care Provider] - Disposition Disposition: Home, Self Care What to do if you have Problems For any increased pain, shortness of breath, bleeding, nausea or vomiting, chestpain, or any unexpected problems, contact your Primary Care Provider. Call [facility] ([phone]) or report to the closest Emergency Room. Call 911 if necessary. 12/07/22826 <Electronically signed by Monty Mendoza MD> Cosigner Signature (if applicable): CC: Dr. Alan Castillo MD ~ Signed [facility] Work Phone: Discharge summary Author Kasey Gamboa [facility] June 24, 2023 4:08am Note Date/Time June 24, 2023 3:4 1am [facility] Medical Records Department [address] [place] [address] Emergency Department Summary 06/24/23 MR#: [id number] Acct: [id number] Name: ELKIN VAUGHN Rep #:[id number] : 1985 38 From: Kasey Carlos PCP: Dr. Alan Castillo MD Status:RE G ER Location: ED HPI HPI - Psych History of Present Illness Chief Complaint: Anxiety Informant: patient Narrative Narrative: Patient is a 38-year-old male presenting with anxiety and insomnia. Patient is a history of polysubstance abuse as well as anxiety and bipolar disorder. Patient states that he was recently in detox couple weeks ago for amphetamines and has been clean for 3 and half weeks. He is trying to give up marijuana. He notes that about a week ago he was discharged from [facility] in [place]. States that he fell asleep and did not take his evening medicines. States that he is on Klonopin, prazosin, Remeron and gabapentin. Notes that has had a really hard time sleeping lately. Denies any new audiovisual hallucinations. He was worried that his heart was beating too fast as he had an episode where his heart was beating 223 times per minute a couple days ago however patient gave the same story last night when he was seen for anxiety. He states he does not want to harm himself denies any HI or SI at thistime. He states he just wants to be happy and appreciate his life. He states hecalled 911 tonight because he was worried he was not safe at home because there could be something wrong with his heart. [facility] Medical History Anxiety Bipolar disorder Depression GERD (gastroesophageal reflux disease) Panic attack Severe dextromethorphan use disorder Sleep apnea Home Medications gabapentin 100 mg capsule 600 mg PO TID 09/20/22 [History Last Taken Unknown] prazosin 1 mg capsule 2 mg PO QHS 09/20/22 [History Last Taken Unknown] clonazepam 0.5 mg tablet 0.5 mg PO Q12H PRN anxiety 12/07/22 [History Last Taken Unknown] mirtazapine 15 mg tablet (Remeron) 45 mg PO QHS 06/10/23 [History Last Taken Unknown] Allergy/AdvReac Type Severity Reaction Status Date / Time No Known Allergies Allergy Verified 06/24/23 02:59 Social History household members: none and other details: Patient reports he has children and recently went degeneration so he could Smoking Status: Current every day smoker tobacco type: cigarettes ROS ROS ED Constitutional Constitutional ED: Reports sweats; Denies chills or fever(s) Eyes Eyes: Denies change in vision Cardiovascular Cardiovascular: Denies chest pain Respiratory/Chest Respiratory/Chest: Denies cough Gastrointestinal Gastrointestinal: Reports diarrhea; Denies abdominal pain or vomiting Musculoskeletal Musculoskeletal: Denies arthralgias or myalgias Integumentary Denies rash Neurologic Neurologic: Denies headache(s) Psychiatric Psychiatric: Reports anxiety; Denies suicidal ideation or suicidal thoughts EXAM Physical Exam Const Vital Signs: 06/24/23 02:59 Temperature 97.1 F L Temperature Source Temporal Pulse Rate 100 Respiratory Rate 18 Blood Pressure 147/100 H Blood Pressure Mean 115 Pulse Ox 98 Oxygen Delivery Method Room Air Positive well nourished and well developed General Appearance ED: well developed and NAD HEENT Reports moist mucous membranes normocephalic and atraumatic Eyes PERRL and EOMs intact bilaterally Neck supple Resp normal respiratory effort and clear to auscultation bilaterally Cardio Rate: regular rate Extremity normal to inspection Neuro oriented x3 Sensorium / Orientation: alert Psych cooperative, activity/motor behavior normal, denies hallucinations, denies homicidal ideation and denies suicidal ideation Appearance: grossly normal Activity / Motor Behavior: appropriate eye contact Speech: rapid Mood & Affect: anxious Thought Process: No flight of ideas and racing thoughts Thought Content: normal thought content Attention / Concentration: attention grossly intact and concentration grossly intact Memory / Cognition: memory grossly intact Insight: insight good Judgement: fair Skin Lesions: no lesions Rashes: no rashes MDM MDM MDM Narrative Medical decision making narrative: Patient is evaluated for sounds like insomnia and anxiety. He is hemodynamically stable. He is mildly hypertensive 147/100. Patient does appearmildly internally stimulated/has racing thoughts however he is able to redirect himself and calm himself back down throughout my conversation with him. Does not show that patient has recent prescription for Klonopin from [facility]. He did not take his evening dose and will be given a 1 mg dose of oral Klonopin here. I did discuss that continued dependency on benzodiazepines is likely not helpful and more of a Band-Aid. He needs to continue to follow-up with psychiatry. He does not have any thoughts of harm himself or others and seems to be adequately able to care for himself so do not think he requires an emergent psychiatric evaluation. He does follow with a counselor tenderness encouraged to continue to follow with him. I did offer him a dose of Zyprexa orally however he declined stating that so they had him on at [facility] and heis no longer on that. Patient is discharged home instructions to take his otherevening medicines (no more clonazepam). Counseled of outpatient follow-up with the counseling center. At this time I do not suspect an acute medical emergencydo not think he requires further workup. Discharge Plan Triage Chief Complaint: Anxiety ED Provider: Kasey Gamboa Dx/Rx/DC Orders Clinical Impression: Anxiety reaction Instructions: ED Anxiety Reaction Prescriptions: No Action prazosin 1 mg capsule 2 mg PO QHS gabapentin 100 mg capsule 600 mg PO TID clonazepam 0.5 mg tablet 0.5 mg PO Q12H PRN (Reason: anxiety) mirtazapine [Remeron] 15 mg tablet 45 mg PO QHS Primary Care Provider: Alan Castillo Referrals: Counseling,Center [Group of Physicians] - 1 Day Alan Castillo MD [Primary Care Provider] - Activity Restrictions/Additional Instructions: Please follow-up with the counseling center tomorrow. At the know that you are dealing with increased episodes of anxiety attacks and had 2 ER visits in the last few days for this. You might need a medication adjustment. Please take your nighttime medicines (except for the clonazepam and she received some of that here) when you get home. Continue to abstain from marijuana and all other illicit drugs. Disposition Disposition: Home, Self Care What to do if you have Problems For any increased pain, shortness of breath, bleeding, nausea or vomiting, chestpain, or any unexpected problems, contact your Primary Care Provider. Call [facility] ([phone]) or report to the closest Emergency Room. Call 911 if necessary. 06/24/23 0408 <Electronically signed by Kasey Gamboa DO> Cosigner Signature (if applicable): CC: Dr. Alan Castillo MD ~ Signed [facility] Work Phone: Evaluation + Plan note [facility] Evaluation + Plan note No data available for this section [facility] Evaluation note* Diagnosis Encounter for staple removal- Primary Encounter for removal of sutures Abrasion of skin Abrasion or friction burn of other, multiple, and unspecified sites, without mention of infection documented in this encounter [facility] noteNo assessment information availableWRegency [facility] Work Phone: Evaluation note* Diagnosis Seasonal allergies- Primary Allergic rhinitis, cause unspecified documented in this encounter [facility] note* Diagnosis Passage of loose stools- Primary Diarrhea [facility] Diagnosis FRANCISCO (obstructive sleep apnea)- Primary Obstructive sleep apnea (adult) (pediatric) Bipolar affective disorder, remission status unspecified (HCC) Polysubstance (including opioids) dependence, daily use (HCC) Combinations of opioid type drug with any other drug dependence, continuous Schizoaffective disorder, unspecified type (HCC) [facility] Diagnosis Palpitations- Primary Tachycardia Tachycardia, unspecified Polysubstance (including opioids) dependence, daily use (HCC) Combinations of opioid type drug with any other drug dependence, continuous Overdose of undetermined intent, initial encounter documented in this encounter [facility] note* Diagnosis Hospital discharge follow-up- Primary Other follow-up examination Benzodiazepine withdrawal without complication (HCC) FRANCISCO (obstructive sleep apnea) Obstructive sleep apnea (adult) (pediatric) documented in this encounter [facility] note* Diagnosis Gastroesophageal reflux disease, unspecified whether esophagitis present- Primary Schizoaffective disorder, unspecified type (HCC) Amphetamine abuse (HCC) Nondependent amphetamine or related acting sympathomimetic abuse, unspecified Tachycardia Tachycardia, unspecified documented in this encounter [facility] note* Diagnosis Encounter for removal of sutures- Primary documented in this encounter [facility] note* Diagnosis Acute midline low back pain without sciatica- Primary Foot pain, bilateral Pain in limb Heartburn Schizoaffective disorder, unspecified type ([facility]) documented in this encounter [facility] note* Diagnosis Anxiety- Primary Anxiety state, unspecified documented in this encounter [facility] note* Diagnosis Methamphetamine abuse (CMS/HCC) (HCC)- Primary Nondependent amphetamine or related acting sympathomimetic abuse, unspecified documented in this encounter [facility] note* Diagnosis Methamphetamine use (CMS/HCC) (HCC)- Primary Nondependent amphetamine or related acting sympathomimetic abuse, unspecified documented in this encounter [facility] note* Diagnosis Methamphetamine abuse (CMS/HCC) (HCC)- Primary Nondependent amphetamine or related acting sympathomimetic abuse, unspecified documented in this encounter [facility] note* Diagnosis Unspecified psychosis (HCC)- Primary Unspecified psychosis documented in this encounter [facility] note* Diagnosis Anxiety- Primary Anxiety state, unspecified Medication refill Issue of repeat prescriptions documented in this encounter [facility] note* Diagnosis DDD (degenerative disc disease), thoracic- Primary Degeneration of thoracic or thoracolumbar intervertebral disc Gastroesophageal reflux disease, unspecified whether esophagitis present documented in this encounter [facility] note* Diagnosis DDD (degenerative disc disease), thoracic Degeneration of thoracic or thoracolumbar intervertebral disc documented in this encounter [facility] note* Diagnosis Acute midline thoracic back pain documented in this encounter [facility] note* Diagnosis Acute midline thoracic back pain- Primary Acute midline thoracic back pain documented in this encounter [facility] note* Diagnosis DDD (degenerative disc disease), thoracic Degeneration of thoracic or thoracolumbar intervertebral disc documented in this encounter [facility] Work Phone: Hospital Discharge instructions Additional Instructions Please continue to follow-up on an outpatient basis with your counselors and psychiatrist and return to the ER should you have any further concernsWRegency [facility] Work Phone: Hospital Discharge instructions Additional Instructions Please follow-up with your PCP.[facility] Work Phone: Hospital Discharge instructions Additional Instructions Ice and elevate all sore areas. Motrin and Tylenol for pain. The areas is a stitched up look good. No signs of infection. Follow-up with your doctor as needed.[facility] Work Phone: Hospital Discharge instructions* Attachments The following attachments cannot be sent through Care Everywhere. * Drug Abuse and Drug Addiction Discharge Instructions ([place]izen [place]) documented in this [facility] Discharge instructions* Attachments The following attachments cannot be sent through Care Everywhere. * Drug Abuse and Drug Addiction Discharge Instructions ([place]izen [place]) [facility]* Attachments The following attachments cannot be sent through Care Everywhere. * Anxiety Discharge Instructions, Adult ([place]izen [place]) documented in this [facility] Discharge instructions Additional Instructions Medically cleared. Proceed with mental health evaluationWRegency [facility] Work Phone: Hospital Discharge instructionsAdditional Instructions Follow-up with your primary care physician and outpatient resources. You need to stop using methamphetamine. This was the cause of your symptoms. You need to drink plenty of fluids over the next several days.[facility] Work Phone: Instructions* Attachments The following attachments cannot be sent through Care Everywhere. * Anxiety Discharge Instructions, Adult ([place]izen [place]) documented in this encounterMetroHealthReason for referral (narrative)No reason for referral information availableWRegency [facility] Work Phone: Reason for visit Narrative* Diagnostic Procedure Only (Urgent) - Authorized Specialty Diagnoses / Procedures Referred By Shreyas t Referred To Contact XR IMAGING Diagnoses DDD (degenerative disc disease), thoracic Procedures XR THORACIC GENERAL 3V AP/LAT/SWIMMERS XR THORACIC GENERAL 3V AP/LAT/SWIMMERS RADEX SPINE THORACIC 3 VIEWS Funmi Hummel, BISCUIT 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 [address] [place] [address] Phone: tel: fax: [place] [address] Referral ID Status Reason Start Date Expiration Date Visits Requested Visits Authorized [id number] Authorized Auto-Generat ed Referral 10/19/2024 11/18/2025 1 1 [facility]* Diagnostic Procedure Only (Routine) - Closed Specialty Diagnoses / Procedures Referred By Contac t Referred To Contact XR IMAGING Diagnoses Acute midline thoracic back pain Procedures XR THORACIC GENERAL 3V AP/LAT/SWIMMERS RADEX SPINE THORACIC 3 VIEWS Funmi Hummel, BISCUIT 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 [address] [place] [address] Phone: tel: fax: [place] [address] Referral ID Status Reason Start Date Expiration Date V isits Requested Visits Authorized [id number] Closed Auto-Generate d Referral 10/20/2024 11/19/2025 1 1 [facility] Summary Purpose Family History No Family History Records FoundNo Family History Records FoundNo Family History Records FoundNo Family History Records FoundNo Family History Records Found No data available for this section No Family History Records FoundNo Family History Records Found No data available for this section No Family History Records FoundNo Family History Records FoundNo Family History Records FoundNo Family History Records FoundNo Family History Records Found No data available for this section No Family History Records FoundNo Family History Records FoundNo Family History Records Found Advance Directives No Advanced Directives Records Found Date Activated Date Inactivated Comments 03/27/2024 2:09 AM 03/29/2024 6:31 PM Question Answer Comments Full Code Order Discussed With: Surrogate Lloyd on Maker Documents on File Type Date Recorded Patient Behavioral Modification Assistant Expl anation Advance Directive(s) 06/28/2021 10:28 AM Advance Directive(s) 06/28/2021 6:15 PM Advance Directive(s) 06/28/2021 11:45 PM Advance Directive Response Recorded Date/ Time Advance Directives No March 07, 2016 5:24am Living Will No July 26, 2021 12:53am Power of Corporate Administrative Assistant No July 26 12:53am Advance Directive Response Recorded Date/ Time Advance Directives No March 07, 2016 5:24am Living Will No November 05, 2021 3:15pm Power of Corporate Administrative Assistant No November 05 3:15pm Advance Directive Response Recorded Date/ Time Advance Directives No March 07, 2016 5:24am Living Will No August 15, 2022 9 :36am Power of Corporate Administrative Assistant No August 15, 2022 9:36am Advance Directive Response Recorded Date/ Time Advance Directives No March 07, 2016 5:24am Living Will No August 15, 2022 9 :27pm Power of Corporate Administrative Assistant No August 15, 2022 9:27pm Advance Directive Response Recorded Date/ Time Advance Directives No March 07, 2016 5:24am Living Will No September 20, 2022 1:51am Power of Corporate Administrative Assistant No September 20 1:51am Advance Directive Response Recorded Date/ Time Advance Directives No March 07, 2016 5:24am Living Will No November 11, 2022 2:07am Power of Corporate Administrative Assistant No November 11 2:07am Advance Directive Response Recorded Date/ Time Advance Directives No March 07, 2016 5:24am Living Will No November 13 8:39am Power of Corporate Administrative Assistant No November 13 023 8:39am Advance Directive Response Recorded Date/ Time Advance Directives No March 07, 2016 5:24am Living Will No December 07, 023 7:24am Power of Corporate Administrative Assistant No December 07, 2022 7:24am Advance Directive Response Recorded Date/ Time Advance Directives No March 07, 2016 4:24am Living Will No June 10, 2023 7:09am Power of Corporate Administrative Assistant No June 09 7:09am Advance Directive Response Recorded Date/ Time Advance Directives No March 07, 2016 4:24am Living Will No June 12, 2023 2:31am Power of Corporate Administrative Assistant No June 11 2:31am Advance Directive Response Recorded Date/ Time Advance Directives No March 07, 2016 5:24am Living Will No June 12, 2023 3:31am Power of Corporate Administrative Assistant No June 11 3:31am Advance Directive Response Recorded Date/ Time Advance Directives No March 07, 2016 5:24am Living Will No June 14, 2023 3:27pm Power of Corporate Administrative Assistant No June 13 3:27pm Advance Directive Response Recorded Date/ Time Advance Directives No March 07, 2016 5:24am Living Will No June 23, 2023 3:21am Power of Corporate Administrative Assistant No June 22 3:21am Advance Directive Response Recorded Date/ Time Advance Directives No March 07, 2016 5:24am Living Will No June 24, 2023 2:59am Power of Corporate Administrative Assistant No June 23 2:59am Advance Directive Response Recorded Date/ Time Advance Directives No March 07, 2016 5:24am Living Will No July 02, 2023 9:43am Power of Corporate Administrative Assistant No July 01 9:43am Advance Directive Response Recorded Date/ Time Advance Directives No March 07, 2016 5:24am Living Will No July 09, 2023 3:01pm Power of Corporate Administrative Assistant No July 08 3:01pm Advance Directive Response Recorded Date/ Time Advance Directives No March 07, 2016 5:24am Living Will No July 30, 2023 11:57pm Power of Corporate Administrative Assistant No July 29 11:57pm Advance Directive Response Recorded Date/ Time Advance Directives No March 07, 2016 5:24am Living Will No July 31, 2023 10:54am Power of Corporate Administrative Assistant No July 30 10:54am Advance Directive Response Recorded Date/ Time Advance Directives No March 07, 2016 5:24am Living Will No August 01, 2023 6:18pm Power of Corporate Administrative Assistant No July 31 6:18pm Advance Directive Response Recorded Date/ Time Advance Directives No March 07, 2016 5:24am Living Will No August 10, 2023 2: 00pm Power of Corporate Administrative Assistant No August 10, 2023 2:00pm Date Activated Date Inactivated Comments 03/27/2024 2:09 AM Advance Directive Response Recorded Date/ Time Living Will No March 22, 2 024 2:36am Power of Corporate Administrative Assistant No March 22, 2024 2:36am Living Will No June 16, 2024 9:58pm Power of Corporate Administrative Assistant No June 16 9:58pm Advance Directives No March 07, 2016 5:24am Advance Directive Response Recorded Date/ Time Do you have a Healthcare Power of Corporate Administrative Assistant? No October 17, 2024 11:19am Advance Directives No March 07, 2016 5:24am Date Activated Date Inactivated Comments 03/27/2024 2:09 AM 03/29/2024 6:31 PM Question Answer Comments Full Code Order Discussed With: Surrogate Tristonisi on Maker Health Concerns Infection Onset Date Last Indicated Resolved Time COVID-19 Rule-Out 06/28/2021 06/28/2021 06/28/2021 7:00 PM EDT Chief Complaint and Reason for Visit Chief Complaint ANXIETY MENTAL HEALTH panic attack substance abuse anxiety ANXIETY Chief Complaint ANXIETY mental health MENTAL HEALTH Chief Complaint MENTAL HEALTH Chief Complaint MENTAL HEALTH MENTAL HEALTH Chief Complaint MENTAL HEALTH MENTAL HEALTH anxiety Chief Complaint MENTAL HEALTH MENTAL HEALTH anxiety overdose Chief Complaint MENTAL HEALTH MENTAL HEALTH anxiety overdose overdose Chief Complaint MENTAL HEALTH MENTAL HEALTH anxiety overdose overdose overdose Chief Complaint MENTAL HEALTH MENTAL HEALTH anxiety overdose overdose overdose OD GENERAL ILLNESS Chief Complaint detox program dizzines Chief Complaint detox program dizzines anxiety Chief Complaint detox program dizzines anxiety panic attack, insomnia Chief Complaint detox program dizzines anxiety panic attack, insomnia MENTAL HEALTH Chief Complaint detox program dizzines anxiety panic attack, insomnia MENTAL HEALTH substance abuse Chief Complaint detox program dizzines anxiety panic attack, insomnia MENTAL HEALTH substance abuse anxiety Chief Complaint detox program dizzines anxiety panic attack, insomnia MENTAL HEALTH substance abuse anxiety anxiety Chief Complaint detox program dizzines anxiety panic attack, insomnia MENTAL HEALTH substance abuse anxiety anxiety PANIC Chief Complaint detox program dizzines anxiety panic attack, insomnia MENTAL HEALTH substance abuse anxiety anxiety PANIC Lacerstion Chief Complaint detox program dizzines anxiety panic attack, insomnia MENTAL HEALTH substance abuse anxiety anxiety PANIC Lacerstion WOUND Chief Complaint detox program dizzines anxiety panic attack, insomnia MENTAL HEALTH substance abuse anxiety anxiety PANIC Lacerstion WOUND WHATS TO KNOW HIS BLOOD RESULTS Chief Complaint detox program dizzines anxiety panic attack, insomnia MENTAL HEALTH substance abuse anxiety anxiety PANIC Lacerstion WOUND WHATS TO KNOW HIS BLOOD RESULTS LEG PAIN Chief Complaint Admit Date ANXIETY March 22, 2024 1:32am SI June 16, 2024 7:5 6pm Chief Complaint Admit Date chest pain October 17, 2024 11:1 5am Reason for Referral Specialty Diagnoses / Procedures Referred By Shreyas jacobs Referred To Contact Allergy Diagnoses Seasonal allergies Procedures CONSULT TO ALLERGY/IMMUNOLOGY OFFICE/OUTPATIENT [facility] 60-74 MINUTES Lucila Wetzel, GERONIMO.FITNESS AND WELLNESS MANAGER [address] [place] [address] Referral ID Status Reason Start Date Expiration Date Visits Requested Visits Authorized [id number] Authorized PCP Requested Referral 05/04/2022 05/04/2023 1 1 Specialty Diagnoses / Procedures Referred By Contac t Referred To Contact Diagnoses FRANCISCO (obstructive sleep apnea) Procedures CONSULT TO SLEEP MEDICINE - ADULT OFFICE/OUTPATIENT [facility] 60-74 MINUTES Keo Domingo APRN.FITNESS AND WELLNESS MANAGER [address] [place] [address] Referral ID Status Reason Start Date Expiration Date Visits Requested Visits Authorized [id number] Authorized PCP Requested Referral 11/25/2022 08/25/2023 1 1 Specialty Diagnoses / Procedures Referred By Contac t Referred To Contact Diagnoses FRANCISCO (obstructive sleep apnea) Procedures CONSULT TO SLEEP MEDICINE - ADULT OFFICE/OUTPATIENT [facility] 60-74 MINUTES Lucila Wetzel APRN.FITNESS AND WELLNESS MANAGER [address] [place] [address] Referral ID Status Reason Start Date Expiration Date Visits Requested Visits Authorized [id number] Pending Review PCP Requested Referral 12/08/2022 12/08/2023 [...] ized section and content) DATE CREATED AUTHOR 06/21/2021 [facility] DATE CREATED AUTHOR AUTHOR'S ORGANIZ ATION 06/28/2021 [facility] DATE CREATED AUTHOR AUTHOR'S ORGANIZ ATION 07/07/2021 [facility] DATE CREATED AUTHOR AUTHOR'S ORGANIZ ATION 09/19/2021 [facility] DATE CREATED AUTHOR AUTHOR'S ORGANIZ ATION 11/26/2022 [facility] DATE CREATED AUTHOR AUTHOR'S ORGANIZ ATION 09/18/2023 [facility] ([place]) DATE CREATED AUTHOR AUTHOR'S ORGANIZ ATION 10/19/2023 [facility] DATE CREATED AUTHOR AUTHOR'S ORGANIZ ATION 02/21/2024 [facility] DATE CREATED AUTHOR AUTHOR'S ORGANIZ ATION 03/01/2024 [facility] DATE CREATED AUTHOR AUTHOR'S ORGANIZ ATION 03/30/2024 [facility] DATE CREATED AUTHOR AUTHOR'S ORGANIZ ATION 04/14/2024 [facility] DATE CREATED AUTHOR AUTHOR'S ORGANIZ ATION 06/11/2024 [facility] DATE CREATED AUTHOR AUTHOR'S ORGANIZ ATION 10/18/2024 [facility] DATE CREATED AUTHOR AUTHOR'S ORGANIZ ATION 12/04/2024 [facility] DATE CREATED AUTHOR AUTHOR'S ORGANIZ ATION 12/20/2024 [facility] Source Comments (unrecognize d section and content) In the event this informatio n is protected by the Federal Confidentiality of Alcohol and Drug Abuse Patient Records regulations: The Federal rules restrict any use of the information to criminally investigate or prosecute any alcohol or drug abuse patient.[facility] the event this information is protected by the Federal Confidentiality of Alcohol and Drug Abuse Patient Records regulations: The Federal rules restrict any use of the information to criminally investigate or prosecute any alcohol or drug abuse patient.[facility] HospitalIn the event this information is protected by the Federal Confidentiality of Alcohol and Drug Abuse Patient Records regulations: The Federal rules restrict any use of the information to criminally investigate or prosecute any alcohol or drug abuse patient.[facility] Hospital[facility] the event this information is protected by the Federal Confidentiality of Alcohol and Drug Abuse Patient Records regulations: The Federal rules restrict any use of the information to criminally investigate or prosecute any alcohol or drug abuse patient.[facility] HospitalIn the event this information is protected by the Federal Confidentiality of Alcohol and Drug Abuse Patient Records regulations: The Federal rules restrict any use of the information to criminally investigate or prosecute any alcohol or drug abuse patient.[facility] HospitalIn the event this information is protected by the Federal Confidentiality of Alcohol and Drug Abuse Patient Records regulations: The Federal rules restrict any use of the information to criminally investigate or prosecute any alcohol or drug abuse patient.[facility] HospitalIn the event this information is protected by the Federal Confidentiality of Alcohol and Drug Abuse Patient Records regulations: The Federal rules restrict any use of the information to criminally investigate or prosecute any alcohol or drug abuse patient.[facility] HospitalIn the event this information is protected by the Federal Confidentiality of Alcohol and Drug Abuse Patient Records regulations: The Federal rules restrict any use of the information to criminally investigate or prosecute any alcohol or drug abuse patient.[facility] HospitalIn the event this information is protected by the Federal Confidentiality of Alcohol and Drug Abuse Patient Records regulations: The Federal rules restrict any use of the information to criminally investigate or prosecute any alcohol or drug abuse patient.[facility] HospitalIn the event this information is protected by the Federal Confidentiality of Alcohol and Drug Abuse Patient Records regulations: The Federal rules restrict any use of the information to criminally investigate or prosecute any alcohol or drug abuse patient.[facility] HospitalIn the event this information is protected by the Federal Confidentiality of Alcohol and Drug Abuse Patient Records regulations: The Federal rules restrict any use of the information to criminally investigate or prosecute any alcohol or drug abuse patient.[facility] HospitalIn the event this information is protected by the Federal Confidentiality of Alcohol and Drug Abuse Patient Records regulations: The Federal rules restrict any use of the information to criminally investigate or prosecute any alcohol or drug abuse patient.[facility] HospitalIn the event this information is protected by the Federal Confidentiality of Alcohol and Drug Abuse Patient Records regulations: The Federal rules restrict any use of the information to criminally investigate or prosecute any alcohol or drug abuse patient.[facility] HospitalIn the event this information is protected by the Federal Confidentiality of Alcohol and Drug Abuse Patient Records regulations: The Federal rules restrict any use of the information to criminally investigate or prosecute any alcohol or drug abuse patient.[facility] HospitalIn the event this information is protected by the Federal Confidentiality of Alcohol and Drug Abuse Patient Records regulations: The Federal rules restrict any use of the information to criminally investigate or prosecute any alcohol or drug abuse patient.[facility] HospitalIn the event this information is protected by the Federal Confidentiality of Alcohol and Drug Abuse Patient Records regulations: The Federal rules restrict any use of the information to criminally investigate or prosecute any alcohol or drug abuse patient.[facility] HospitalIn the event this information is protected by the Federal Confidentiality of Alcohol and Drug Abuse Patient Records regulations: The Federal rules restrict any use of the information to criminally investigate or prosecute any alcohol or drug abuse patient.[facility] HospitalIn the event this information is protected by the Federal Confidentiality of Alcohol and Drug Abuse Patient Records regulations: The Federal rules restrict any use of the information to criminally investigate or prosecute any alcohol or drug abuse patient.[facility] HospitalIn the event this information is protected by the Federal Confidentiality of Alcohol and Drug Abuse Patient Records regulations: The Federal rules restrict any use of the information to criminally investigate or prosecute any alcohol or drug abuse patient.[facility] HospitalIn the event this information is protected by the Federal Confidentiality of Alcohol and Drug Abuse Patient Records regulations: The Federal rules restrict any use of the information to criminally investigate or prosecute any alcohol or drug abuse patient.[facility] HospitalIn the event this information is protected by the Federal Confidentiality of Alcohol and Drug Abuse Patient Records regulations: The Federal rules restrict any use of the information to criminally investigate or prosecute any alcohol or drug abuse patient.[facility] HospitalIn the event this information is protected by the Federal Confidentiality of Alcohol and Drug Abuse Patient Records regulations: The Federal rules restrict any use of the information to criminally investigate or prosecute any alcohol or drug abuse patient.[facility] HospitalIn the event this information is protected by the Federal Confidentiality of Alcohol and Drug Abuse Patient Records regulations: The Federal rules restrict any use of the information to criminally investigate or prosecute any alcohol or drug abuse patient.[facility] HospitalIn the event this information is protected by the Federal Confidentiality of Alcohol and Drug Abuse Patient Records regulations: The Federal rules restrict any use of the information to criminally investigate or prosecute any alcohol or drug abuse patient.[facility] HospitalIn the event this information is protected by the Federal Confidentiality of Alcohol and Drug Abuse Patient Records regulations: The Federal rules restrict any use of the information to criminally investigate or prosecute any alcohol or drug abuse patient.[facility] HospitalIn the event this information is protected by the Federal Confidentiality of Alcohol and Drug Abuse Patient Records regulations: The Federal rules restrict any use of the information to criminally investigate or prosecute any alcohol or drug abuse patient.[facility] HospitalIn the event this information is protected by the Federal Confidentiality of Alcohol and Drug Abuse Patient Records regulations: The Federal rules restrict any use of the information to criminally investigate or prosecute any alcohol or drug abuse patient.[facility] HospitalIn the event this information is protected by the Federal Confidentiality of Alcohol and Drug Abuse Patient Records regulations: The Federal rules restrict any use of the information to criminally investigate or prosecute any alcohol or drug abuse patient.[facility] HospitalIn the event this information is protected by the Federal Confidentiality of Alcohol and Drug Abuse Patient Records regulations: The Federal rules restrict any use of the information to criminally investigate or prosecute any alcohol or drug abuse patient.[facility] HospitalIn the event this information is protected by the Federal Confidentiality of Alcohol and Drug Abuse Patient Records regulations: The Federal rules restrict any use of the information to criminally investigate or prosecute any alcohol or drug abuse patient.[facility] Reason for Visit (unrecogniz ed section and content) Reason Onset Date Comments Behavioral Problem 06/28/2021 Reason Onset Date Comments Transition Of Care [...] Reason Comments CPAP Supplies Reason Comments Dr Flannery returning your call Reason Comments Acute Visit sleep apnea- ER foll ow up Reason Comments GERD Reason Comments Suture Removal Suture removal from back of legs Reason Onset Date Comments ACM LUANNE RN 10/12/2023 ER outreach f ollow up Reason Onset Date Comments Population Health Navigation Outreach 10/26/2023 [facility] Reason Onset Date Comments Community Monitoring Outreach 12/13/2023 Reason Onset Date Comments Population Health Navigation Outreach 12/15/2023 [facility] Reason Comments Pain (foot) Reason Comments Feeling anxious/nervous/tense Reason Comments Drug / Alcohol Assessment 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 Pt states last use was this morning. Denies use of other substances at this time, but has previously used other drugs Reason Onset Date Comments ACM LUANNE RN 03/24/2024 ER f/u from 05/23 Reason Comments Suicidal Pt reports I want t o leave my body and see my loves ones in [facility] . Pt reports hx of attempt as a teen. Hx of substance use. Reports his plan is to overdose on drugs Psychiatric Evaluation Reason Comments Hallucinations Pt is detoxifying fr om meth, states he is hallucinating. Pt from [facility] Reason Onset Date Comments Substance Abuse 03/26/2024 Reason Comments Anxiety Pt states he was jus t [facility] from [facility] and needs help getting back on his anxiety medications including his klonopin and gabapentin. Has not had them since before being in [facility] which was about 2 months. Pt denies any SI, HI or hallucinations. Reason Comments Patient Update Reason Comments Back Pain Reason Comments Insurance Authorization Reason Comments Medication Problem Reason Comments Forms Reason Comments Patient Question Care Teams (unrecognized sec tion and content) Inserter Promotional Item Relationship Specialty Start Date End Date Alan Castillo MD [address] [place] [address] PCP - General Family Practice 01/11/14 Inserter Promotional Item Relationship Specialty Start Date End Date Alan Castillo MD [address] [place] [address] PCP - General Family Practice 01/11/14 Inserter Promotional Item Relationship Specialty Start Date End Date Alan Castillo MD [address] [place] [address] PCP - General Family Practice 01/11/14 Inserter Promotional Item Relationship Specialty [place] [address] [place] [address] PCP - General Family Medicine 01/11/14 Inserter Promotional Item Relationship Specialty [place] [address] [place] [address] PCP - General Family Medicine 01/11/14 Team Status: Active Member Role Status Dates Dr. Alan Castillo MD Family Provider Active Dr. Alan Castillo MD Primary Care Provider Active Team Status: Inactive Member Role Status Dates Dr. Alan Castillo MD Primary Care Provider Active Dr. Bev Mcgarry DO Emergency Provider Active Team Status: Inactive Member Role Status Dates Dr. Alan Castillo MD Primary Care Provider Active Dr. Fito Nunn MD Emergency Provider Active Inserter Promotional Item Relationship Specialty Start Date End Date Alan Castillo MD [address] [place] [address] PCP - General Family Medicine 01/11/14 Inserter Promotional Item Relationship Specialty Start Date End Date Alan Castillo MD [address] [place] [address] PCP - General Family Medicine 01/11/14 Team Status: Inactive Member Role Status Dates Dr. Alan Castillo MD Primary Care Provider Active Dr. Bev Mcgarry DO Attending Provider, Emergency Pro vider Active Team Status: Inactive Member Role Status Dates Dr. Alan Castillo MD Primary Care Provider Active Dr. Fito Nunn MD Attending Provider, Emergency Provider Active Team Status: Inactive Member Role Status Dates Dr. Alan Castillo MD Primary Care Provider Active Nader Arceo MD Emergency Provider Active Inserter Promotional Item Relationship Specialty Start Date End Date Alan Castillo MD [address] [place] [address] PCP - General Family Medicine 01/11/14 Team Status: Inactive Member Role Status Dates Dr. Alan Castillo MD Primary Care Provider Active Nader Arceo MD Attending Provider, Emergency Provid er Active Team Status: Inactive Member Role Status Dates Dr. Alan Castillo MD Primary Care Provider Active Dr. Sonny Harry DO Emergency Provider Active Team Status: Inactive Member Role Status Dates Dr. Alan Castillo MD Primary Care Provider Active Dr. Stacy Gonzalez MD Emergency Provider Active Inserter Promotional Item Relationship Specialty Start Date End Date Alan Castillo MD [address] [place] [address] PCP - General Family Medicine 01/11/14 Inserter Promotional Item Relationship Specialty Start Date End Date Alan Castillo MD [address] [place] [address] PCP - General Family Medicine 01/11/14 Team Status: Inactive Member Role Status Dates Dr. Alan Castillo MD Primary Care Provider Active Dr. Sonny Harry DO Attending Provider, Emergency Pr ovider Active Team Status: Inactive Member Role Status Dates Dr. Alan Castillo MD Primary Care Provider Active Dr. Stacy Gonzalez MD Attending Provider, Emergency Provider Active Team Status: Inactive Member Role Status Dates Dr. Alan Castillo MD Primary Care Provider Active Ed Physician Provider Emergency Provider Active Team Status: Inactive Member Role Status Dates Dr. Alan Castillo MD Primary Care Provider Active Ed Physician Provider Attending Provider, Emergency Pr ovider Active Team Status: Inactive Member Role Status Dates Dr. Alan Castillo MD Primary Care Provider Active Dr. Monty Mendoza MD Emergency Provider Active Inserter Promotional Item Relationship Specialty Start Date End Date Alan Castillo MD [address] [place] [address] PCP - General Family Medicine 01/11/14 Team Status: Inactive Member Role Status Dates Dr. Alan Castillo MD Primary Care Provider Active Dr. Adin Enriqeuz DO Emergency Provider Active Team Status: Inactive Member Role Status Dates Dr. Alan Castillo MD Primary Care Provider Active Dr. Adin Enriquez DO Attending Provider, Emergency Provider Active Team Status: Inactive Member Role Status Dates Dr. Alan Castillo MD Primary Care Provider Active Dr. Monty Mendoza MD Attending Provider, Emergency Provi misty Active Team Status: Inactive Member Role Status Dates Dr. Alan Castillo MD Primary Care Provider Active Dr. Kasey Gamboa DO Emergency Provider Active Team Status: Inactive Member Role Status Dates Dr. Alan Castillo MD Primary Care Provider Active Dr. Kasey Gamboa DO Attending Provider, Emergency P rovider Active Team Status: Inactive Member Role Status Dates Dr. Alan Castillo MD Primary Care Provider Active Dr. Marino Stewart DO Emergency Provider Active Team Status: Inactive Member Role Status Dates Dr. Alan Castillo MD Primary Care Provider Active Dr. Marino Stewart DO Attending Provider, Emergency P rovider Active Inserter Promotional Item Relationship Specialty Start Date End Date Alan Castillo MD [address] [place] [address] PCP - General Family Medicine 01/11/14 Team Status: Active Member Role Status Dates Dr. Alan Castillo MD Primary Care Provider Active PRUDENCIO CRENSHAW Attending Provider, Referring Provider Active Team Status: Inactive Member Role Status Dates Dr. Alan Castillo MD Primary Care Provider Active PRUDENCIO CRENSHAW Attending Provider, Referring Provider Active Team Status: Active Member Role Status Dates Dr. Alan Castillo MD Primary Care Provider Active PRUDENCIO CRENSHAW Attending Provider Active Team Status: Inactive Member Role Status Dates Dr. Alan Castillo MD Primary Care Provider Active Dr. Javi Whitehead MD Emergency Provider Active Team Status: Inactive Member Role Status Dates Dr. Alan Castillo MD Primary Care Provider Active PRUDENCIO CRENSHAW Attending Provider Active Inserter Promotional Item Relationship Specialty Start Date End Date Alan Castillo MD [address] [facility] [place] [address] PCP - General Family Medicine 01/11/14 Inserter Promotional Item Relationship Specialty Start Date End Date Alan Castillo MD [address] [facility] [place] [address] PCP - General Family Medicine 01/11/14 Inserter Promotional Item Relationship Specialty Start Date End Date Alan Castillo [address] [facility] [place] [address] PCP - General 06/20/21 Inserter Promotional Item Relationship Specialty Start Date End Date Alan Castillo MD [address] [facility] [place] [address] PCP - General Family Medicine 01/11/14 Lucila Wetzel, BISCUIT 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 [address] [facility] [place] [address] Sas Programmer Analyst Family Medicine 03/12/24 Keo Domingo, BISCUIT 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 [address] [facility] [place] [address] Sas Programmer Analyst Family Medicine 03/21/24 Inserter Promotional Item Relationship Specialty Start Date End Date Alan Castillo [address] [place] [address] PCP - General 06/20/21 Inserter Promotional Item Relationship Specialty Start Date End Date Alan Castillo [address] [place] [address] PCP - General 06/20/21 Inserter Promotional Item Relationship Specialty Start Date End Date Alan Castillo [address] [place] [address] PCP - General 06/20/21 Inserter Promotional Item Relationship Specialty Start Date End Date Alan Castillo MD [address] [place] [address] PCP - General Family Medicine 01/11/14 Lucila Wetzel APRN.FITNESS AND WELLNESS MANAGER [address] [place] [address] Sas Programmer Analyst Family Medicine 03/12/24 Keo Domingo APRN.FITNESS AND WELLNESS MANAGER [address] [place] [address] Sas Programmer Analyst Family Medicine 03/21/24 Team Status: Active Member Role Status Dates Dr. Alan Castillo MD Primary Care Provider Active Team Status: Inactive Member Role Status Dates Dr. Alan Castillo MD Primary Care Provider Active Start: March 22, 2024 End: March 22, 2024 Dr. Martin Rice DO Attending Provider Active Start : March 22, 2024 End: March 22, 2024 Dr. Martin Rice DO Emergency Provider Active Start : March 22, 2024 End: March 22, 2024 Team Status: Inactive Member Role Status Dates Dr. Alan Castillo MD Primary Care Provider Active Start: June 16, 2024 End: June 17, 2024 Dr. Javi Whitehead MD Emergency Provider Active S tart: June 16, 2024 End: June 17, 2024 Inserter Promotional Item Relationship Specialty Start Date End Date Alan Castillo MD [address] [facility] [place] [address] PCP - General Family Medicine 01/11/14 Lucila Wetzel BISCUIT 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 [address] [place] [address] Sas Programmer Analyst Family Medicine 03/12/24 Keo Domingo, BISCUIT 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 [address] [place] [place] [address] Sas Programmer Analyst Family Medicine 03/21/24 Team Status: Active Member Role/Relationship Status Dates Dr. Alan Castillo MD Primary Care Provider Active Team Status: Active Member Role/Relationship Status Dates Dr. Alan Castillo MD Primary Care Provider Active Start: October 12, 2024 WM REEVES Attending Provider Active Star t: October 12, 2024 Team Status: Inactive Member Role/Relationship Status Dates Dr. Alan Castillo MD Primary Care Provider Active Start: October 17, 2024 End: October 17, 2024 Dr. Norm Camp DO Emergency Provider Activ e Start: October 17, 2024 End: October 17, 2024 Inserter Promotional Item Relationship Specialty Start Date End Date Alan Castillo MD [address] [place] [place] [address] PCP - General Family Medicine 01/11/14 Keo Domingo, BISCUIT 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 [address] [facility] [place] [address] [facility]as [facility]mer [facility] 03/21/24 Inserter Promotional Item Relationship Specialty Start Date End Date Alan Castillo MD [address] [place] [address] PCP - General Family Medicine 01/11/14 Keo Domingo BISCUIT 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 [address] [place] [address] Sas Programmer Analyst Family Medicine 03/21/24 Inserter Promotional Item Relationship Specialty Start Date End Date Alan Castillo MD [address] [place] [address] PCP - General Family Medicine 01/11/14 Keo Domingo, BISCUIT 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 [address] [place] [address] Sas Programmer Analyst Family Medicine 03/21/24 Inserter Promotional Item Relationship Specialty Start Date End Date Alan Castillo MD [address] [place] [address] PCP - General Family Medicine 01/11/14 Keo Domingo, BISCUIT 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 [address] [place] [address] Sas Programmer Analyst [facility] Medicine 03/21/24 Inserter Promotional Item Relationship Specialty Start Date End Date Alan Castillo MD [address] [place] [address] PCP - General Family Medicine 01/11/14 Keo Domingo, BISCUIT 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 [address] [place] [address] Sas Programmer Analyst [facility] 03/21/24 Team Status: Inactive Member Role/Relationship Status Dates Dr. Alan Castillo MD Primary Care Provider Active Start: October 17, 2024 End: October 17, 2024 Dr. Norm Camp DO Attending Provider Activ e Start: October 17, 2024 End: October 17, 2024 Dr. Norm Camp DO Emergency Provider Activ e Start: October 17, 2024 End: October 17, 2024 Team Status: Inactive Member Role/Relationship Status Dates Dr. Alan Castillo MD Primary Care Provider Active Start: November 02, 2024 End: November 02, 2024 WM REEVES Attending Provider Active Star t: November 02, 2024 End: November 02, 2024 Inserter Promotional Item Relationship Specialty Start Date End Date Alan Castillo MD [address] [facility] [place] [address] PCP - General Family Medicine 01/11/14 Keo Domingo APRN.FITNESS AND WELLNESS MANAGER [address] [facility] [place] [address] Sas Programmer Analyst Family Medicine 03/21/24 Team Status: Inactive Member Role/Relationship Status Dates Dr. Alan Castillo MD Primary Care Provider Active Start: November 15, 2024 End: November 15, 2024 WM REEVES Attending Provider Active Star t: November 15, 2024 End: November 15, 2024 Inserter Promotional Item Relationship Specialty Start Date End Date Alan Castillo MD [address] [facility] [place] [address] PCP - General Family Medicine 01/11/14 Keo Domingo APRN.FITNESS AND WELLNESS MANAGER [address] [facility] [place] [address] Sas Programmer Analyst Family Medicine 03/21/24 Inserter Promotional Item Relationship Specialty Start Date End Date Alan Castillo MD [address] [facility] [place] [address] PCP - General Family Medicine 01/11/14 Keo Domingo APRN.FITNESS AND WELLNESS MANAGER [address] [facility] [place] [address] Sas Programmer Analyst Family [facility] 03/21/24 Goals (unrecognized section and content) Goals may be documented in an alternate sectionGoals may be documented in an alternate sectionGoals may be documented in an alternate sectionGoals may be documented in an alternate sectionGoals may be documented in an alternate sectionGoals may be documented in an alternate sectionGoals may be documented in an alternate sectionGoals may be documented in an alternate sectionGoals may be documented in an alternate sectionGoals may be documented in an alternate sectionGoals may be documented in an alternate sectionGoals may be documented in an alternate sectionGoals may be documented in an alternate sectionGoals may be documented in an alternate sectionGoals may be documented in an alternate sectionGoals may be documented in an alternate sectionGoals may be documented in an alternate sectionGoals may be documented in an alternate sectionGoals may be documented in an alternate sectionGoals may be documented in an alternate sectionGoals may be documented in an alternate sectionGoals may be documented in an alternate sectionGoals may be documented in an alternate section No data available for this section No data available for this sectionGoals may be documented in an alternate section No data available for this sectionGoals may be documented in an alternate sectionGoals may be documented in an alternate sectionGoals may be documented in an alternate section Scheduled Active and Recently Administ ered Medications (unrecognized section and content) Medication Order 03/22/2024 03/23/2024 03/24/2024 acetaminophen (Tylenol) tablet 650 mg (COMPLETED) 650 mg, Oral, Once, On Ira 03/23/24 at 2335, For 1 dose, Maximum dose of acetaminophen is 4000 mg from all sources in 24 hours. 0202 (Given - Provid er: Leticia Rincon RN) LORazepam (Ativan) tablet 1 mg (COMPLETED) 1 mg, Oral, Once, On Ira 03/23/24 at 2335, For 1 dose 0202 (Given - Provid er: Leticia Rincon RN) Scheduled Medication Order 03/22/2024 03/23/2024 03/24/2024 LORazepam (Ativan) tablet 1 mg (COMPLETED) 1 mg, Oral, Once, On Wed03/24/24 at 2240, For 1 dose 2240 (Given - Provid er: Biju Jacobs RN) Scheduled Medication Order 05/30/2024 05/31/2024 06/01/2024 clonazePAM (KlonoPIN) tablet 0.5 mg (COMPLETED) 0.5 mg, Oral, Once, On Ira 06/01/24 at 1745, For 1 dose 1745 (Given - Provid er: Aleta Shaffer RN) FOR RECORDS PERTAINING TO PATIENTS WHO ARE [...] BE BASED ON THE PRIMARY CLINICAL RECORDS. [facility] [employer] [facility]. provides no warranty or guarantee of the accuracy or completeness of information in this document.
[2025-03-27 04:30] VITALS: BP 111/82; PULSE 97; RESP 18; TEMP 36.6; O2SAT 98
== END 2025-03-27 04:45 | disposition home or self-care (01) ==
PROVIDERS: Emergency Provider Emergency Medicine; PCP Family Medicine; Visit Provider Emergency Medicine
DX: K52.9 Noninfective gastroenteritis and colitis, unspecified (principal); F17.210 Nicotine dependence, cigarettes, uncomplicated; R00.0 Tachycardia, unspecified; E86.0 Dehydration; K21.9 Gastro-esophageal reflux disease without esophagitis; F17.290 Nicotine dependence, other tobacco product, uncomplicated
CPT/HCPCS: 80053; 83690; 85025; 93005; 96361; 96374; 96375; 99285; A4216; J2405